=== PATIENT | male | born 1950 | race African-American/Black ===

== ENCOUNTER 2017-01-05 13:05 | Inpatient (IN) | payer MEDICARE, OTHER ==
[~2017-01-05] VITALS: Ht 190.5 cm; Wt 99.9 kg
[~2017-01-05 13:05] MED LIST: ACET325T9 PO; ACET500T68 PO; ALBU8.5H3 INH; ASPI81TA50 PO; ATOR20TA58 PO; BACL10TA PO; BISA10SU55 RC; BUSP10TA PO; CARV25TA2 PO; CHOL10003 PO; DICL100G7 TP; DIVA125C PO; DIVA500T17 PO; DIVA500T2 PO; DONE10TA34 PO; FURO40TA4 PO; HYDR100T24 PO; LISI40TA PO; LOPE1LIQ7 PO; MAG30ORA2 PO; MAGN2400 PO; MEMA10TA PO; MEMA5TAB PO; MULT0.252 PO; MULT1TAB90 PO; NIFE60TA PO; POTA20LI PO; POTA20TA12 PO; PROP10DR4 OU; PROP15DR OP; PROP15DR OU; SENN-37 PO; SERT100T PO; SERT50TA PO; TRAZ50TA15 PO; WARF5TAB7 PO
--- NOTE | 2017-01-05 13:23 | EKG ---
[address] [address] Test Date: 2017-01-05 Test Time: 13:22:43 Pat Name: HUY TEAGUE Department: Room: Gender: M Post Splitter: : 1950 Requested By: DALIA CONTRERAS Order Number: [id number] Reading MD: Measurements Intervals [place] Rate: 60 P: 0 NC: 190 QRS: 37 QRSD: 100 T: -98 QT: 430 QTc: 434 Interpretive Statements SINUS RHYTHM QRS(T) CONTOUR ABNORMALITY CONSISTENT WITH SEPTAL INFARCT AGE UNDETERMINED ST & T ABNORMALITY, CONSIDER ANTEROLATERAL ISCHEMIA OR LEFT VENTRICULAR STRAIN INFEROLATERAL ISCHEMIA OR LEFT VENTRICULAR STRAIN T ABNORMALITY IN ANTERIOR LEADS ABNORMAL ECG RI6.01 Unconfirmed report Compared to ECG 11/08/2015 18:58:30 Myocardial infarct finding now present Possible ischemia still present Possible ischemia still present T-wave abnormality still present
--- NOTE | 2017-01-05 13:29 | RAD ---
Indication: Previous stroke. Left-sided weakness. Symptoms began about 30 minutes ago, patient slumped over in a chair with mental status change. Technique: Noncontrast CT head was obtained and compared to a CT from November 08, 2015. One or more of the following individualized dose reduction techniques were utilized for this examination: 1. Automated exposure control 2. Adjustment of the mA and/or kV according to patient size 3. Use of iterative reconstruction technique Findings: There is a small old right cerebellar infarct. There is an old right thalamus infarct. There is an old right parietal white matter infarct. There is no CT evidence of an acute infarct. There is brain parenchymal volume loss and probable small vessel ischemic disease. There is no acute intracranial hemorrhage or extra-axial fluid collection. There is no mass effect or midline shift. There are vascular calcifications. Paranasal sinuses and mastoid air cells are clear. This critical report was called to Dr. Vázquez at 1325 hours. Impression: 1. Old right cerebellar, right thalamus, and right parietal white matter infarcts. 2. No evidence of an acute infarct. 3. Brain parenchymal volume loss and probable small vessel ischemic disease.
--- NOTE | 2017-01-05 13:32 | RAD ---
Indication: Mental status change. Technique: Upright portable chest radiograph was obtained. Comparison is from November 08, 2015. Findings: New patchy opacity is noted in the right midlung field. The lungs otherwise are clear. The heart is not enlarged and there is no heart failure. There are degenerative changes in the shoulders. Impression: Minimal new patchy opacity in the right midlung field, may represent developing pneumonia.
[2017-01-05 13:56] LABS: BASO % 1 % (0-3); EOS # 0.2 x10^3/uL (0.0-0.7); EOS % 3 % (0-3); HEMATOCRIT 37.6 % (39.0-53.0); HEMOGLOBIN 12.3 g/dL (13.0-17.5); LYMPH # 1.4 x10^3/uL (1.0-4.8); LYMPH % 22 % (24-48); MEAN CORPUSCULAR HEMOGLOBIN 30 pg (25-35); MEAN CORPUSCULAR HGB CONC 33 g/dL (31-37); MEAN CORPUSCULAR VOLUME 93 fL (79-100); MONO # 0.8 x10^3/uL (0.0-1.1); MONO % 13 % (0-9); NEUT # 4.1 x10^3uL (1.8-7.7); NEUT % 62 % (31-73); PLATELET COUNT 114 x10^3/uL (140-400); RED BLOOD COUNT 4.07 x10^6/uL (4.30-5.70); RED CELL DISTRIBUTION WIDTH 13.6 % (11.5-14.5); WHITE BLOOD COUNT 6.5 x10^3/uL (4.0-11.0)
--- NOTE | 2017-01-05 14:26 | PHYS DOC ---
General Chief Complaint: ALTERED MENTAL STATUS Stated Complaint: ALTERED MENTAL STATUS Time Seen by MD: 13:07 Source: family, EMS, RN notes reviewed Problems: History of Present Illness Initial Comments 66-year-old male patient with history of previous hemorrhagic CVA with left- sided weakness [facility] was seen at his usual contribution at lunchtime and around 1230 today was confused and unable to talk like his usual. Patient is not able to give history and has a slurred speech but according to his family usually he is able to talk and communicate well. Allergies: Coded Allergies: No Known Drug Allergies (Unverified , 11/08/15) Past Medical History Medical History: CVA/TIA/stroke, deep vein thrombosis, diabetes, heart disease , hypertension Review of Systems Constitutional: other (unable to obtain because of ALOC and slurred speech) Physical Exam General Appearance: mild distress, other (keeps his eyes close,follows the comand) Eyes: bilateral eye EOMI, bilateral eye PERRL, bilateral eye normal inspection Neck: non-tender, full range of motion Respiratory: chest non-tender, lungs clear, normal breath sounds, no respiratory distress Cardiovascular: normal peripheral pulses, regular rate, rhythm, no edema Gastrointestinal: normal bowel sounds, non tender Extremities: other (left upper and lower extremity weakness like his previous condition) Neurologic/Psychiatric: other (arousable, slurred speech, left side weakness) Orders, Labs, Meds Evaluation of patient in ER showed 66-year-old male patient with history of hemorrhagic CVA presented to ER with acute slurred speech and confusion at 1230. CT of head did not show acute hemorrhagic findings. Because of previous intracranial bleeding patient was not a candidate for TPA. Dr Davis on-call neurologist was consulted at 1405who was agreed with plan of care. Dr. Lamin Pennington hospitalist was informed about the patient at 1408 accepted the admission. Patient had rectal Aspirin. Critical Care Note Total Time (mins): 60 DALIA CONTRERAS MD Jan 05, 2017 14:26
[2017-01-05 14:30] LABS: ALBUMIN 3.1 g/dL (3.4-5.0); ALBUMIN/GLOBULIN RATIO 0.9 (1.0-1.7); ALK PHOS 44 U/L (46-116); ALT (SGPT) 14 U/L (16-63); ANION GAP 10 (6-14); AST (SGOT) 21 U/L (15-37); BLOOD UREA NITROGEN 30 mg/dL (8-26); BUN/CREATININE RATIO 14 (6-20); CALCIUM 8.8 mg/dL (8.5-10.1); CARBON DIOXIDE 28 mmol/L (21-32); CHLORIDE 106 mmol/L (98-107); CREATINE KINASE 115 U/L (39-308); CREATININE 2.1 mg/dL (0.7-1.3); GFR 38.3; GLUCOSE 137 mg/dL (70-99); POTASSIUM 4.1 mmol/L (3.5-5.1); SODIUM 144 mmol/L (136-145); TOTAL BILIRUBIN 0.3 mg/dL (0.2-1.0); TOTAL PROTEIN 6.7 g/dL (6.4-8.2)
[2017-01-05 14:31] LABS: VAL ACID 78 mcg/mL (50-100)
[2017-01-05] MEDS ORDERED: ASPIRIN 300 MG SUPP.RECT PR ONE (14:50)
[2017-01-05] MEDS ORDERED: SERT100T8 PO (15:39)
[2017-01-05] MEDS ORDERED: SODI30SP NS ×2 (15:57)
[2017-01-05 16:11] VITALS: BP 136/82
[2017-01-05 16:17] VITALS: BP 136/82
[2017-01-05] MEDS ORDERED: ALBUTEROL SULFATE 8GM INHALER. INH PRN (17:45)
[2017-01-05] MEDS ORDERED: SODIUM CHLORIDE 0.65% NASAL SPRAY 45ML BOTTLE. NS PRN (17:45)
[2017-01-05] MEDS ORDERED: MAG HYDROX/AL HYDROX/SIMETH 30 ML ORAL.SUSP PO PRN (17:45)
[2017-01-05] MEDS ORDERED: ACETAMINOPHEN 500 MG TABLET PO PRN (17:45)
[2017-01-05] MEDS ORDERED: BISACODYL 10 MG SUPP.RECT RC PRN (17:45)
[2017-01-05] MEDS ORDERED: DICLOFENAC SODIUM 1% TOPICAL GEL 100GM TUBE. TP PRN (17:45)
[2017-01-05] MEDS ORDERED: PEG OU PRN (17:45)
[2017-01-05] MEDS ORDERED: PROPYLENE GLYCOL OU PRN (17:45)
[2017-01-05] MEDS: CARVEDILOL 25 MG TABLET PO SCH (17:52)
[2017-01-05] MEDS ORDERED: MAGNESIUM HYDROXIDE 2,400 MG/30 ML ORAL.SUSP. PO PRN (18:00)
[2017-01-05] MEDS ORDERED: LOPERAMIDE 2 MG CAPSULE PO PRN (18:00)
[2017-01-05] MEDS: IV NORMAL SALINE 1,000ML 1,000 ML IV SCH (18:07)
[2017-01-05] MEDS ORDERED: ALBUTEROL SULFATE 2.5 MG/3 ML NEBU. NEB PRN (18:15)
--- NOTE | 2017-01-05 18:19 | HP ---
ADMIT DATE: 01/05/2017 HISTORY OF PRESENT ILLNESS: This is a 66-year-old -[place] male patient, a resident at [facility] in [place], who apparently was brought in with altered mental status. He apparently went slumped in his wheelchair. He was also hypotensive at that time. I do not have a lot of more information. The patient did not demonstrate any tonic-clonic seizures nor there any bowel or bladder incontinence. He was brought to the Emergency Room for further evaluation and treatment. He was extensively investigated and has had a CT scan of the head without contrast, which showed that he has old right cerebellar, right thalamus and right parietal white matter infarct; no evidence of an acute infarct. He has brain parenchymal volume loss and probably small vessel ischemic disease. He has had also CBC and CMP. These seem to be acceptable except that he has a slightly elevated troponin as well as serum creatinine was high at 2.1. He is already on Coumadin and his INR is within therapeutic range, so unlikely. He has had an EKG done. His EKG showed that he was in sinus rhythm, in fact in sinus bradycardia with heart rate of 60. He has poor progression of R-wave in V1, V2 and indicating probably old anteroseptal infarct. He has also T-wave inversion in lead 1, aVL, V4, V5, V6 indicating anterolateral and inferior ischemia. His first set of cardiac enzymes showed that his troponin was slightly elevated at 0.066. The patient was admitted for further evaluation. He probably either had a syncopal episode versus seizure disorder. The patient himself is complaining of pain in his neck. Denied any chest pain or shortness of breath. PAST MEDICAL HISTORY: Significant for hypertension, hyperlipidemia, congestive heart failure, right-sided CVA with left side hemiplegia, muscle weakness and anxiety. PAST SURGICAL HISTORY: Unremarkable. FAMILY HISTORY: Unremarkable. SOCIAL HISTORY: He is a resident at [facility]. He is single. He has 3 sons, the youngest is 14, currently lives in [place]. He is an ex-smoker and an ex-alcohol drinker, quit 2 years ago. ALLERGIES: He has no known drug allergies. MEDICATIONS: He is currently on the following medications: He is on Tylenol 650 mg every 4 hours, albuterol sulfate 1 puff every 6 hours, aspirin 81 mg once a day, atorvastatin calcium 20 mg p.o. at bedtime, baclofen 10 mg at bedtime, baclofen 5 mg as needed daily, bisacodyl 10 mg suppository as needed for constipation, buspirone 10 mg p.o. q.i.d., carvedilol 25 mg p.o. b.i.d., cholecalciferol for vitamin D 2000 units p.o. daily, diclofenac sodium for Voltaren gel 1 gram applied topically twice a day, divalproex 750 mg p.o. b.i.d., Aricept 10 mg at bedtime, furosemide 40 mg daily, hydralazine 100 mg 3 times a day, lisinopril 40 mg once a day, loperamide for Imodium 2 mg as needed every 8 hours for diarrhea, Mylanta 15 mL every 6 hours, magnesium hydroxide for milk of magnesia 30 mL p.o. daily p.r.n. for constipation, Namenda 10 mg twice a day, multivitamin with mineral 1 tablet once a day, nifedipine 60 mg extended release 1 once a day, potassium chloride 20 mEq 3 times per week, Systane 2 drops to both eyes 4 times a day, senna docusate 1 tablet twice a day, sertraline 125 mg daily, sodium chloride for saline nasal spray one spray to each nostril 3 times a day, trazodone 50 mg at bedtime and warfarin 3.5 mg daily. REVIEW OF SYSTEMS: As per history of present illness. PHYSICAL EXAMINATION GENERAL: When I examined him, he looked well and was clearly in no apparent respiratory distress. He is awake, alert. VITAL SIGNS: Apparently, his blood pressure was low when he was at the senior care with a systolic pressure of only 70. By the time he arrived here, his blood pressure was around 100/62 and subsequently has improved, his respiratory rate was 18, oxygen saturation was 96% and temperature was 97. HEAD, EYES, EARS, NOSE, AND THROAT: Showed normocephalic, atraumatic. NECK: Supple. HEART: Showed normal first and second heart sounds with no gallop, rub or murmur. CHEST: Clear to auscultation. No crepitation or rhonchi. ABDOMEN: Distended, soft, nontender. No guarding or rigidity. No organomegaly. All hernial orifices are intact. Bowel sounds are normal. NEUROLOGIC: He was awake, alert, responding appropriately. All cranial nerves are intact. He has left-sided hemiplegia. He is mostly bedbound and chair bound. LABORATORY DATA: This morning showed a serum sodium 144, potassium 4.1, chloride 106, bicarbonate 28, anion gap of 10, BUN 30, creatinine 2.1, estimated GFR was 38 mL per minute, his glucose 137, calcium was 8.8, magnesium 2. Total bilirubin, AST, ALT, and alkaline phosphatase were all normal. His CK was 115, first set of troponin was 0.066. His beta natriuretic peptide was 131. Total protein was 6.7, albumin 3.1. His prothrombin time was , INR of 2.6. White cell count was 6500, hemoglobin 12.3, hematocrit 37, MCV 93, and platelet count 214,000. His creatinine was only 1.4 when he was here in 11/08/2015, a year ago. PLAN: My plan is to given the slightly elevated troponin and findings on his EKG that sounds the possibility of syncopal episode versus seizure or arrhythmias is likely, so I will consult the cardiology team as well as the neurologist. We will do 2 more sets of cardiac enzymes, check his fasting lipid profile. I will hold his lisinopril as well as his diuretics and rehydrate him gently and decide on further management accordingly. INDER MIRELES MD DR: ANTOINETTE/rose JOB#: [id number] / [id number]
--- NOTE | 2017-01-05 19:14 | ACF ---
Admission Criteria Forms MENTAL STATUS CHANGE Clinical Indications for Inpatient Care (Place 'X' for any and all applicable criteria): Ongoing inpatient care may be needed for ANY ONE of the following(1)(2)(3)(5)(6) : [X]I. Suspected serious etiology (eg, medical disorder, CURATORIAL SPECIALIST event) of mental status change [ ]II. Danger to self or others not manageable at lower level of care [ ]III. Grave disability (eg, inability to perform self care necessary at lower level of care) [ ]IV. Agitation or inappropriate behavior interfering with care for primary condition (eg, attempting to discontinue lines or drains prematurely, unable to cooperate with respiratory care) [ ]V. Delirium [A] [D][E] as described by ANY ONE of the following(26): [ ]a) Delirium due to alcohol or sedative [F] withdrawal [ ]b) Delirium of uncertain etiology that has not responded to appropriate empiric treatment [ ]c) Delirium that prevents performance of a life-sustaining function (eg, feeding or hydrating oneself) [ ]. General contraindications and/or Inappropriate clinical situations for Observational Care in patients with Mental Status Change, when ANY ONE of the following is required: [ ]a) Prediction of prolongation of LOS based on ANY ONE of the following may be considered as a contraindication for observational care 2, 3, 4, 5, 6, 7, 8, 9, 10, 11 [ ]i) Age > 65 yrs. [ ]ii) Patient arriving by ambulance [ ]iii) Patient with high acuity [ ]iv) Patient requiring vital sign monitoring [ ]v) Patient on IV medication [ ]b) Systolic blood pressures 180mmHg 3,12 [ ]c) Patient with altered mental status including delirium and other alteration of consciousness, (3) [ ]d) Patient whose discharge disposition will be to a group home home or rehabilitation home should not be managed in Emergency Department Observation Unit. CMS rule requires 3 days hospital stay before such placement.3,13 [ ]e) Patient with failure to thrive due to broad array of etiologies 3,16,17 [ ]f) Inability to ambulate 3,14 Extended stay beyond goal length of stay for the primary condition may be needed until ALL of the following are present(3)(5): [ ]a) Underlying medical etiology of mental status change is absent, or has been established and adequately treated [ ]b) Danger to self or others is absent or manageable at lower level of care. [ ]c) Behavior crisis management, including physical or chemical restraints, is not required or available at lower level of car [ ]d) Substance or alcohol withdrawal is absent or manageable at lower level of care. [ ]e) Behavioral symptoms (eg, agitation, somnolence, inappropriate behavior) are absent, or are manageable at lower level of care. The original [facility] content created by [facility] has been revised. The portions of the content which have been revised are identified through the use of italic text or in bold, and [facility] has neither reviewed nor approved the modified material. All other unmodified content is copyright [facility]. Please see references footnoted in the original [facility] edition 2016 Admission Criteria Met?: Yes ARISTEO ELAM Jan 05, 2017 19:14
[2017-01-05 19:22] VITALS: BP 134/75
[2017-01-05] MEDS: SODIUM CHLORIDE 0.65% NASAL SPRAY 45ML BOTTLE. NS SCH (21:00)
[2017-01-05] MEDS: DIVALPROEX 125 MG CAP.SPRINK PO SCH (22:16)
[2017-01-05] MEDS: SENNOSIDES/DOCUSATE 8.6/50MG TABLET. PO SCH (22:17)
[2017-01-05] MEDS: busPIRone 10 MG TABLET. PO SCH (22:17)
[2017-01-05] MEDS: ATORVASTATIN CALCIUM 20 MG TABLET PO SCH (22:18)
[2017-01-05] MEDS: MEMANTINE 10 MG TABLET. PO SCH (22:18)
[2017-01-05] MEDS: BACLOFEN 10 MG TABLET PO SCH (22:18)
[2017-01-05] MEDS: DONEPEZIL HCL 10 MG TABLET PO SCH (22:19)
[2017-01-05 23:07] VITALS: BP 145/88
[2017-01-05 23:21] LABS: BACTERIA,URINE 0 /HPF (0-FEW); BILIRUBIN,URINE NEG (NEG); CLARITY,URINE CLEAR; COLOR,URINE YELLOW; GLUCOSE,URINE NEG (NEG); NITRITE,URINE NEG (NEG); RBC,URINE 0 /HPF (0-2); SQUAMOUS EPITHELIAL CELL,UR FEW /LPF; UROBILINOGEN,URINE 0.2 mg/dL (0.2 mg/dL); WBC,URINE OCC /HPF (0-4)
[2017-01-06] MEDS: IV NORMAL SALINE 1,000ML 1,000 ML IV SCH (04:44)
[2017-01-06 05:03] VITALS: BP 101/64
[2017-01-06 06:23] LABS: BASO % 1 % (0-3); EOS # 0.2 x10^3/uL (0.0-0.7); EOS % 3 % (0-3); HEMATOCRIT 31.6 % (39.0-53.0); HEMOGLOBIN 10.5 g/dL (13.0-17.5); LYMPH # 2.2 x10^3/uL (1.0-4.8); LYMPH % 42 % (24-48); MEAN CORPUSCULAR HEMOGLOBIN 31 pg (25-35); MEAN CORPUSCULAR HGB CONC 33 g/dL (31-37); MEAN CORPUSCULAR VOLUME 93 fL (79-100); MONO # 0.7 x10^3/uL (0.0-1.1); MONO % 14 % (0-9); NEUT # 2.1 x10^3uL (1.8-7.7); NEUT % 40 % (31-73); PLATELET COUNT 103 x10^3/uL (140-400); RED BLOOD COUNT 3.41 x10^6/uL (4.30-5.70); RED CELL DISTRIBUTION WIDTH 13.4 % (11.5-14.5); WHITE BLOOD COUNT 5.2 x10^3/uL (4.0-11.0)
[2017-01-06 06:33] LABS: ALBUMIN 2.7 g/dL (3.4-5.0); ALBUMIN/GLOBULIN RATIO 0.8 (1.0-1.7); CALCIUM 8.6 mg/dL (8.5-10.1); CREATININE 1.8 mg/dL (0.7-1.3); GFR 45.8; POTASSIUM 3.7 mmol/L (3.5-5.1); TOTAL BILIRUBIN 0.4 mg/dL (0.2-1.0)
[2017-01-06] MEDS: CARVEDILOL 25 MG TABLET PO SCH ×2 (08:00→16:53)
[2017-01-06] MEDS: CHOLECALCIFEROL (VITAMIN D3) 1,000 UNIT TABLET PO SCH (09:32)
[2017-01-06] MEDS: SERTRALINE 25 MG TABLET. PO SCH (09:32)
[2017-01-06] MEDS: busPIRone 10 MG TABLET. PO SCH ×4 (09:32→20:49)
[2017-01-06] MEDS: ASPIRIN ENTERIC COATED 81 MG TABLET.DR. PO SCH (09:32)
[2017-01-06] MEDS: SENNOSIDES/DOCUSATE 8.6/50MG TABLET. PO SCH ×2 (09:32→20:49)
[2017-01-06] MEDS: MEMANTINE 10 MG TABLET. PO SCH ×2 (09:32→20:49)
[2017-01-06] MEDS: MULTIVITAMIN with MINERAL TABLET. PO SCH (09:32)
[2017-01-06] MEDS: DIVALPROEX 125 MG CAP.SPRINK PO SCH ×2 (09:33→20:49)
[2017-01-06] MEDS: BACLOFEN 10 MG TABLET PO SCH ×2 (09:33→21:01)
[2017-01-06] MEDS: SERTRALINE 100 MG TABLET. PO SCH (09:33)
[2017-01-06] MEDS: SODIUM CHLORIDE 0.65% NASAL SPRAY 45ML BOTTLE. NS SCH ×3 (09:36→21:01)
--- NOTE | 2017-01-06 09:45 | PN ---
DATE: SUBJECTIVE: The patient denies any new medical neurological complaints. He eats and drink water well. He has not had any recurrent spells or slurred speech. OBJECTIVE: GENERAL: Moderately obese, white -Polish male, in no acute distress. VITAL SIGNS: Blood pressure 101/64, respiratory rate 20, pulse is 64, and oxygen saturation 95% on room air. HEENT: Normocephalic, atraumatic, otherwise unremarkable. NECK: Supple. Negative for carotid bruit, lymphadenopathy or thyromegaly. LUNGS: Clear to A and P. CARDIOVASCULAR: Regular rate and rhythm, normal S1, S2. There is no S3, S4 or murmur. ABDOMEN: Soft. Bowel sounds positive. EXTREMITIES: Negative for cyanosis, clubbing or pitting edema. NEUROLOGICAL EXAM: Mental Status: The patient is alert and oriented x 3. Speech is fluent. There is no language dysfunction. Cranial nerves are intact. Motor examination reveal left hemiplegia secondary to stroke, otherwise unchanged. Sensory examination revealed diminished pinprick and light touch senses over the left upper and lower extremities compared to those on the right side. Deep tendon reflexes were symmetric and hypoactive without pathology responses. Gait not tested. LABORATORY DATA: CBC revealed white blood cells of 5.2 thousand, hemoglobin 10.5, hematocrit 31.6, platelet count . Chemistry revealed sodium of 143, potassium 3.7, chloride 108, CO2 27, BUN 29, creatinine 1.8, glucose is 87, calcium 8.6. Coagulation, INR is 2.9 and PT is 30.1. IMPRESSION: 1. Sudden onset of weakness of the lower extremities with a fall, rule out of syncope versus seizure versus transient ischemic attack. 2. Renal insufficiency/dehydration. 3. Multiple medical problems includes hyperlipidemia, status post left hemiplegia secondary to old stroke. 4. Hypertension with normal current blood pressure. 5. Depressions and anxiety. RECOMMENDATIONS: 1. Await for Cardiology consultation. 2. Await for EEG. 3. Continue with care for hydration and . 4. Continue with current management initiated by Dr. Pennington. M Silvana MONTOYA MD DR: DAWNA/rose JOB#: [id number] / [id number]
--- NOTE | 2017-01-06 10:09 | CONS ---
DATE OF CONSULTATION: 01/05/2017 NEUROLOGY CONSULTATION REFERRING PHYSICIAN: INDER MIRELES MD REASON FOR CONSULTATION: Weakness of the lower extremity, rule out syncope versus seizure or TIA. HISTORY OF PRESENT ILLNESS: This is a 66-year-old right-handed male who was admitted through Emergency Room after he presented with chief complaints of sudden onset of a fall resulted from a sudden onset of weakness of the lower extremities. According to the patient, he is a resident at [facility], was sitting in a chair, all of a sudden he slumped in his chair and fell to the ground and fell to the floor. He denies any prior symptoms, has chest pain, shortness of breath, palpitations, dysarthria or dysphagia. The patient did not recall being on the floor or being in the ambulance, but he did hear people talk to him in the Emergency Room. Apparently, there has been no report about any convulsions, bowel or bladder dysfunctions. It was reported that the patient was hypotensive at the time of the event. Currently, the patient denies any headaches, visual disturbances, nausea, vomiting, or chest pain. On arrival to Emergency Room, the patient was found to have a slurred speech and confusion. DIAGNOSTIC DATA: Initial nonenhanced head CT scan revealed evidence of an old right cerebellar, thalamic, parietal old infarcts along with generalized cerebral atrophy, but did not show any acute intracranial process. VITAL SIGNS: Stable with blood pressure of 106/62. PAST MEDICAL HISTORY: Significant for hemorrhagic infarcts resultant in left hemiplegia, more prominent on the left upper extremity, and associated with contractions at the elbow. Hypertension, hyperlipidemia, congestive heart failure, anxiety, and depressions. FAMILY HISTORY: Noncontributory. SOCIAL HISTORY: The patient is a custodial resident. He is single. He has 3 sons. He denies smoking, alcohol drinking, or illicit drug use. HOME MEDICATIONS: Aspirin 81 mg daily, baclofen 10 mg daily, buspirone 10 mg q.i.d. for anxiety, carvedilol 25 mg b.i.d., vitamin D3 2000 units p.o. daily, diclofenac 100 mg gel applied to the painful area p.r.n., Namenda 10 mg b.i.d., sertraline, Zoloft 100 mg daily, Aricept 10 mg at bedtime, Depakote Sprinkle 125 mg capsule, the patient takes 750 mg b.i.d., lisinopril 40 mg daily, hydralazine HCT 100 mg t.i.d., multivitamins, nifedipine XL 60 mg daily, trazodone 50 mg half tablet at bedtime, and warfarin 5 mg daily. ALLERGIES: No known drug allergies. REVIEW OF SYSTEMS: A 10-point review of system was performed and consistent with left hemiplegia secondary to previous stroke. Otherwise, as mentioned above in the history of present illness. PHYSICAL EXAMINATION: GENERAL: Well developed, well nourished male, not in acute distress. He weighs 224 pounds. VITAL SIGNS: Blood pressure 136/62, respiratory rate 18, pulse is 65 and regular, temperature 98.7 and oxygen saturation 93% on room air. HEENT: Normocephalic, atraumatic, otherwise unremarkable. NECK: Supple. Negative for carotid bruit, lymphadenopathy or thyromegaly. LUNGS: Clear to A and P. CARDIOVASCULAR: Regular rate and rhythm, normal S1, S2. There is no S3, S4 or murmur. ABDOMEN: Soft. Bowel sounds positive. EXTREMITIES: Negative for cyanosis, clubbing, or pitting edema. NEUROLOGIC MENTAL STATUS: The patient is alert and oriented x 3. The speech is fluent. There is no language dysfunction. The patient recalls 2/3 immediately and after 1 and 3 minutes. Judgment and abstract thinkings are normal. The patient denies hallucination or delusion. The pupils are reactive to light and accommodation. CRANIAL NERVES: Visual rashid are full. The pupils are reactive to light and accommodation. The extraocular movements are intact. There is no nystagmus. There is no facial motor or sensory deficit. Hearing is intact bilaterally. The palate is elevated symmetrically. Sternocleidomastoid muscles are powerful bilaterally. The patient shrugs his shoulders symmetrically. Protrudes his tongue in the midline without fasciculation or atrophy. MOTOR EXAMINATION: Revealed no focal muscle bulk was seen. The tone is normal. The patient had left hemiplegia with contracture at the elbow. NEUROLOGIC: Intermittent tremor of the hands, more prominent on the right side was noted. Sensory examination revealed diminished pinprick and light touch senses over the left upper and lower extremities compared to those on the right side. Deep tendon reflexes were symmetric and hypoactive without pathology responses. Gait not tested. LABORATORY DATA: CBC revealed white blood cells of 6.5 thousand, hemoglobin 12.3, hematocrit 37.6, and platelet count 114,000. Chemistry reviewed creatinine kinase of 115. CK-MB is 1.3, troponin level is 0.054. NPB is high at 931. Vitamin B132, folate are normal. Thyroid profile is normal. Urinalysis is negative for urinary tract infections. Valproic acid level is normal at 78. CT scan as described above in the history of present illness. Chest x-ray revealed new patchy opacity in the right mid lung field may represent developing pneumonia. IMPRESSION: 1. Sudden onset of falls and mental status changes, rule out syncope, nonconvulsive seizure, or transient ischemic attack, rule out cardiac arrhythmia. 2. Multiple medical problems include left hemiplegia secondary to old hemorrhagic stroke, hypertension, hyperlipidemia, anxiety, depressions. RECOMMENDATIONS: 1. Continue with current management initiated by Dr. Mireles. 2. EEG. 3. Cardiology consult. 4. Carotid Doppler study, echocardiogram, if it has not been done recently. M Silvana MONTOYA MD DR: DAWNA/rose JOB#: [id number] / [id number]
--- NOTE | 2017-01-06 10:40 | PDOC2 ---
SOURAVSUSIE J FLEXIBLE SHAFT WINDER 01/06/17 1040: CONSULT Date of Admission DATE: 01/06/17 TIME: 10:31 Reason for Consult: syncope and elevated trop Problem List Problems Medical Problems: (1) Acute ischemic stroke Status: Acute History of Present Illness Mr Hawk is a 66 year old male [place] resident who presented to the ED yesterday after a fall from his chair with possible syncopal episode and new onset slurring of speech. He was apparently sitting when he slumped and slid out of his chair. He was reportedly hypotensive at the time. He reportedly does not have memory of the incident but it was reported that he had no loss of continence or seizure like activity. He was noted to have new onset of slurred speech however. CT revealed old CVA. He was also noted to have a mildly elevated troponin so consult was called. This morning he gives several accounts of the incident. He reports initially that he was standing and his legs just went out from under him. He denied any preceding symptoms and reports that this occurred one other time several weeks ago. He also reports that he was sitting in the wheel chair and reached for something which caused him to fall. He then reported getting out of bed even though he is not supposed to and causing a fall. He was unaware that he lost consciousness. He denies any chest discomfort, palpitations, lightheadedness. He denies congestive symptoms. 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 Past Surgical History Unremarkable. Family History non contributory Social History He is a resident at [facility]. He is a prior smoker, and has prior history of ETOH. No illicit drugs. Current Medications Current Medications Aspirin (Aspirin) 300 mg 1X ONCE IN Last administered on 01/05/17t 14:54; Start 01/05/17 at 14:50; Stop 01/05/17 at 14:51; Status DC Acetaminophen (Tylenol) 500 mg PRN Q4HRS PRN PO PAIN / TEMP; Start 01/05/17 at 17:45 Albuterol Sulfate (Ventolin Hfa) 1 puff PRN Q6HRS PRN INH SHORTNESS OF BREATH; Start 01/05/17 at 17:45; Stop 01/05/17 at 18:04; Status DC Aspirin (Aspirin Enteric Coated) 81 mg DAILY PO Last administered on 01/06/17 09:32; Start 01/06/17 at 09:00 Atorvastatin Calcium (Lipitor) 20 mg QHS PO Last administered on 01/05/17 22: 18; Start 01/05/17 at 21:00 Baclofen (Lioresal) 5 mg DAILY PO Last administered on 01/06/17 09:33; Start 01/06/17 at 09:00 Baclofen (Lioresal) 10 mg QHS PO Last administered on 01/05/17 22:18; Start at 21:00 Bisacodyl (Dulcolax Supp) 10 mg PRN DAILY PRN RC CONSTIPATION; Start 01/05/17 at 17:45 Buspirone HCl (Buspar) 10 mg QID PO Last administered on 01/06/17 09:32; Start 01/05/17 at 21:00 Carvedilol (Coreg) 25 mg BIDWMEALS PO ; Start 01/05/17 at 18:00 Vitamin D (Vitamin D3) 2,000 unit DAILY PO Last administered on 01/06/17 09:32 ; Start 01/06/17 at 09:00 Diclofenac Sodium (Voltaren) 1 evan PRN Q12HR PRN TP PAIN; Start 01/05/17 at 17: 45 Divalproex Sodium (Depakote Sprinkles) 750 mg BID PO Last administered on 09:33; Start 01/05/17 at 21:00 Donepezil HCl (Aricept) 10 mg QHS PO Last administered on 01/05/17 22:19; Start 01/05/17 at 21:00 Al Hydroxide/Mg Hydroxide (Mylanta Plus Xs) 15 ml PRN Q6HRS PRN PO DYSPEPSIA; Start 01/05/17 at 17:45 Memantine (Namenda) 10 mg BID PO Last administered on 01/06/17 09:32; Start at 21:00 Multivitamins/ Calcium (Thera-M Plus) 1 tab DAILY PO Last administered on 09:32; Start 01/06/17 at 09:00 Potassium Chloride (KCl Oral Soln) 20 meq 3X/WEEK PO ; Start 01/07/17 at 09:00 Polyethyl Glycol/ Propylene Glycol (Systane 0.3-0.4% Oph) 2 drop PRN QID PRN OU DRY EYE; Start 01/05/17 at 17:45 Senna/Docusate Sodium (Senna Plus) 1 tab BID PO Last administered on 01/06/17 09:32; Start 01/05/17 at 21:00 Sertraline HCl (Zoloft) 100 mg DAILY PO Last administered on 01/06/17 09:33; Start 01/06/17 at 09:00 Sodium Chloride (Saline Mist Nasal) 1 evan PRN Q4HRS PRN NS CONGESTION; Start at 17:45 Sodium Chloride (Saline Mist Nasal) 1 evan TID NS Last administered on 09:36; Start 01/05/17 at 21:00 Warfarin Sodium (Coumadin) 3.5 mg DAILY16 PO ; Start 01/06/17 at 16:00; Stop at 16:00; Status DC Loperamide HCl (Imodium) 2 mg PRN Q2HR PRN PO DIARRHEA; Start 01/05/17 at 18:00 Magnesium Hydroxide 2400 mg 2,400 mg PRN QHS PRN PO CONSTIPATION; Start at 18:00 Sodium Chloride (Iv Sodium Chloride 0.9% 1,000ml) 1,000 ml @ 75 mls/hr [id number] IV Last administered on 01/06/17 04:44; Start 01/05/17 at 17:45 Sertraline HCl (Zoloft) 25 mg DAILY PO Last administered on 01/06/17 09:32; Start 01/06/17 at 09:00 Albuterol Sulfate (Ventolin) 2.5 mg PRN Q6HRS PRN NEB SHORTNESS OF BREATH; Start 01/05/17 at 18:15 Warfarin Sodium (Coumadin) 1 mg DAILY16 PO ; Start 01/06/17 at 16:00 Warfarin Sodium (Coumadin) 2.5 mg DAILY16 PO ; Start 01/06/17 at 16:00 Warfarin Sodium (Coumadin Per Physician) 1 each PRN DAILY PRN MC SEE COMMENTS; Start 01/05/17 at 18:15 Active Scripts Active Reported Saline Nasal [place] (Sodium Chloride) 30 Ml [place] 30 Ml NS PRN PRN Saline Nasal [place] (Sodium Chloride) 30 Ml [place] 30 Ml NS TID Sertraline Hcl 100 Mg Tablet 125 Mg PO DAILY Mag-Al Plus Xs Suspension (Mag Hydrox/Al Hydrox/Simeth) 30 Ml Oral.susp 15 Ml PO PRN Q6HRS PRN Vitamin D3 (Cholecalciferol (Vitamin D3)) 1,000 Unit Tablet 2,000 Unit PO DAILY Potassium Chloride Oral Liquid (Potassium Chloride) 20 Meq/15 Ml Liquid 20 Meq PO 3X/WEEK Administer on Thursday, Thursday and Thursday Thera-M Tablet (Multivits,Ca,Minerals/Iron/Fa) 1 Each Tablet 1 Tab PO DAILY Namenda (Memantine Hcl) 5 Mg Tablet 10 Mg PO BID Depakote Sprinkle (Divalproex Sodium) 125 Mg Cap.sprink 750 Mg PO BID Warfarin Sodium 5 Mg Tablet 3.5 Mg PO DAILY16 Voltaren (Diclofenac Sodium) 100 Gm Gel..gram. 1 Evan TP PRN Q12HR PRN Trazodone Hcl 50 Mg Tablet 25 Mg PO QHS Systane 0.3-0.4% Eye Drops (Propylene Glycol/Peg 400) 15 Ml Drops 2 Drop OU PRN QID PRN Senokot-S Tablet (Sennosides/Docusate Sodium) 1 Each Tablet 1 Tab PO BID Procardia Xl (Nifedipine) 60 Mg Tab.er.24 60 Mg PO DAILY Hold for SBO less than 100 or Pulse less than 60, Call MD for Pulse less than 50 Milk Of Magnesia (Magnesium Hydroxide) 2,400 Mg/10 Ml Oral.susp 2,400 Mg PO PRN QHS PRN Lisinopril 40 Mg Tablet 40 Mg PO DAILY Imodium A-D (Loperamide Hcl) 1 Mg/7.5 Ml Liquid 2 Mg PO PRN Q2HR PRN Max dose of 16mg in 24 hours Hydralazine Hcl 100 Mg Tablet 100 Mg PO TID Hold for SBP less than 100 Furosemide 40 Mg Tablet 40 Mg PO DAILY Dulcolax (Bisacodyl) 10 Mg Supp.rect 10 Mg RC PRN DAILY PRN Carvedilol 25 Mg Tablet 25 Mg PO BID Buspirone Hcl 10 Mg Tablet 10 Mg PO QID Baclofen 10 Mg Tablet 5 Mg PO DAILY Baclofen 10 Mg Tablet 10 Mg PO QHS Atorvastatin Calcium 20 Mg Tablet 20 Mg PO QHS Aspir-Low (Aspirin) 81 Mg Tablet.dr 81 Mg PO DAILY Aricept (Donepezil Hcl) 10 Mg Tablet 10 Mg PO QHS Proair Hfa Inhaler (Albuterol Sulfate) 8.5 Gm Hfa.aer.ad 1 Puff INH PRN Q6HRS PRN Acetaminophen 500 Mg Tablet 500 Mg PO PRN Q4HRS PRN NTE 3000mg APAP in 24 hours from all sources Allergies: Coded Allergies: No Known Drug Allergies (Unverified , 11/08/15) Review of System as per HPI General: Alert, Oriented X3, Cooperative, No acute distress HEENT: Atraumatic, EOMI, Mucous membr. moist/pink Lungs: Clear to auscultation Heart: Regular rate, Normal S1, Normal S2, Other (no gallops, clicks or rubs) Abdomen: Normal bowel sounds, Soft, No tenderness Extremities: No cyanosis, Normal pulses Neuro: Normal speech, Other (left sided hemiparesis) Psych/Mental Status: Mood NL VITALS Vital Signs Date Time Temp Pulse Resp B/P Pulse Ox O2 Delivery O2 Flow Rate FiO2 01/06/17 05:03 98.5 64 20 101/64 95 Room Air Labs Laboratory Tests Test 01/05/17 13:35 01/05/17 17:20 01/05/17 19:30 01/05/17 23:00 White Blood Count 6.5x10^3/uL (4.0-11.0) Red Blood Count 4.07x10^6/uL (4.30-5.70) Hemoglobin 12.3g/dL (13.0-17.5) Hematocrit 37.6% (39.0-53.0) Mean Corpuscular Volume 93fL (79-100) Mean Corpuscular Hemoglobin 30pg (25-35) Mean Corpuscular Hemoglobin Concent 33g/dL (31-37) Red Cell Distribution Width 13.6% (11.5-14.5) Platelet Count 114x10^3/uL (140-400) Neutrophils (%) (Auto) 62% (31-73) Lymphocytes (%) (Auto) 22% (24-48) Monocytes (%) (Auto) 13% (0-9) Eosinophils (%) (Auto) 3% (0-3) Basophils (%) (Auto) 1% (0-3) Neutrophils # (Auto) 4.1x10^3uL (1.8-7.7) Lymphocytes # (Auto) 1.4x10^3/uL (1.0-4.8) Monocytes # (Auto) 0.8x10^3/uL (0.0-1.1) Eosinophils # (Auto) 0.2x10^3/uL (0.0-0.7) Basophils # (Auto) 0.0x10^3/uL (0.0-0.2) Prothrombin Time 30.1SEC (9.4-11.4) Prothromb Time International Ratio 2.9 (0.9-1.1) Activated Partial Thromboplast Time 36SEC (23-33) Sodium Level 144mmol/L (136-145) Potassium Level 4.1mmol/L (3.5-5.1) Chloride Level 106mmol/L (98-107) Carbon Dioxide Level 28mmol/L (21-32) Anion Gap 10 (6-14) Blood Urea Nitrogen 30mg/dL (8-26) Creatinine 2.1mg/dL (0.7-1.3) Estimated GFR (Cockcroft-Gault) 38.3 BUN/Creatinine Ratio 14 (6-20) Glucose Level 137mg/dL (70-99) Calcium Level 8.8mg/dL (8.5-10.1) Magnesium Level 2.0mg/dL (1.8-2.4) Total Bilirubin 0.3mg/dL (0.2-1.0) Aspartate Amino Transf (AST/SGOT) 21U/L (15-37) Alanine Aminotransferase (ALT/SGPT) 14U/L (16-63) Alkaline Phosphatase 44U/L (46-116) Creatine Kinase 115U/L (39-308) Creatine Kinase MB (Mass) 1.3ng/mL (0.0-3.6) Creatine Kinase MB Relative Index 1.1% (0-4) Troponin I Quantitative 0.066ng/mL (0-0.055) 0.058ng/mL (0-0.055) VM-Dxq-Z-Type Natriuretic Peptide 931pg/mL (0-124) Total Protein 6.7g/dL (6.4-8.2) Albumin 3.1g/dL (3.4-5.0) Albumin/Globulin Ratio 0.9 (1.0-1.7) Valproic Acid (Depakene) Level 78mcg/mL (50-100) Valproic Acid Last Dose Date 01/05/17 Valproic Acid Last Dose Time 0900 Nasal Screen MRSA (PCR) Negative (Negative) Urine Collection Type Unknown Urine Color Yellow Urine Clarity Clear Urine pH 5.5 Urine Specific [employer] 1.010 Urine Protein Neg (NEG-TRACE) Urine Glucose (UA) Negmg/dL (NEG) Urine Ketones (Stick) Tracemg/dL (NEG) Urine Blood Neg (NEG) Urine Nitrite Neg (NEG) Urine Bilirubin Neg (NEG) Urine Urobilinogen Dipstick 0.2mg/dL (0.2 mg/dL) Urine Leukocyte Esterase Neg (NEG) Urine RBC 0/HPF (0-2) Urine WBC Occ/HPF (0-4) Urine Squamous Epithelial Cells Few/LPF Urine Bacteria 0/HPF (0-FEW) Urine Mucus Slight/LPF Test 01/06/17 01:50 01/06/17 06:03 Troponin I Quantitative 0.054ng/mL (0-0.055) White Blood Count 5.2x10^3/uL (4.0-11.0) Red Blood Count 3.41x10^6/uL (4.30-5.70) Hemoglobin 10.5g/dL (13.0-17.5) Hematocrit 31.6% (39.0-53.0) Mean Corpuscular Volume 93fL (79-100) Mean Corpuscular Hemoglobin 31pg (25-35) Mean Corpuscular Hemoglobin Concent 33g/dL (31-37) Red Cell Distribution Width 13.4% (11.5-14.5) Platelet Count 103x10^3/uL (140-400) Neutrophils (%) (Auto) 40% (31-73) Lymphocytes (%) (Auto) 42% (24-48) Monocytes (%) (Auto) 14% (0-9) Eosinophils (%) (Auto) 3% (0-3) Basophils (%) (Auto) 1% (0-3) Neutrophils # (Auto) 2.1x10^3uL (1.8-7.7) Lymphocytes # (Auto) 2.2x10^3/uL (1.0-4.8) Monocytes # (Auto) 0.7x10^3/uL (0.0-1.1) Eosinophils # (Auto) 0.2x10^3/uL (0.0-0.7) Basophils # (Auto) 0.0x10^3/uL (0.0-0.2) Sodium Level 143mmol/L (136-145) Potassium Level 3.7mmol/L (3.5-5.1) Chloride Level 108mmol/L (98-107) Carbon Dioxide Level 27mmol/L (21-32) Anion Gap 8 (6-14) Blood Urea Nitrogen 29mg/dL (8-26) Creatinine 1.8mg/dL (0.7-1.3) Estimated GFR (Cockcroft-Gault) 45.8 BUN/Creatinine Ratio 16 (6-20) Glucose Level 87mg/dL (70-99) Calcium Level 8.6mg/dL (8.5-10.1) Magnesium Level 1.8mg/dL (1.8-2.4) Total Bilirubin 0.4mg/dL (0.2-1.0) Aspartate Amino Transf (AST/SGOT) 17U/L (15-37) Alanine Aminotransferase (ALT/SGPT) 11U/L (16-63) Alkaline Phosphatase 37U/L (46-116) Total Protein 6.0g/dL (6.4-8.2) Albumin 2.7g/dL (3.4-5.0) Albumin/Globulin Ratio 0.8 (1.0-1.7) Images CT head Impression: 1. Old right cerebellar, right thalamus, and right parietal white matter infarcts. 2. No evidence of an acute infarct. 3. Brain parenchymal volume loss and probable small vessel ischemic disease. EKG - unavailable Assessment/Plan 1. syncope vs seizure vs TIA 2. elevated troponin 3. bradycardia 4. hypertension/hypotension - blood pressure controlled since admission. 5. hyperlipidemia Check echo and MPI. Bradycardia is mild (50s) not significant to cause syncope. Could consider event monitoring. Neuro is following as well. Problems: JAVIER LIGHT MD 01/06/17 1430: CONSULT Allergies: Coded Allergies: No Known Drug Allergies (Unverified , 11/08/15) Assessment/Plan Pt. seen and examined. Agree with above TECHNOLOGY ADOPTION MANAGER note. 66 y.o male with syncope of unclear etiology No clear cardiac source identified as of yet. Normal cardiac exam. Tele unremarkable thus far Supportive care, await diagnostic evaluation including echo/MPI given limited history from patient. Will follow. Problems: SUSIE BENJAMIN APRN Jan 06, 2017 10:40 JAVIER LIGHT MD Jan 06, 2017 14:30
[2017-01-06] MEDS ORDERED: REGADENOSON 0.4 MG/5 ML DISP.SYRIN. IV ONE (11:00)
[2017-01-06 11:26] VITALS: BP 169/83
[2017-01-06 15:28] VITALS: BP 132/85
[2017-01-06] MEDS ORDERED: WARFARIN 5 MG TABLET. PO SCH (16:00)
[2017-01-06] MEDS: WARFARIN 2.5 MG TABLET. PO SCH (16:53)
[2017-01-06] MEDS: WARFARIN 1 MG TABLET. PO SCH (16:54)
--- NOTE | 2017-01-06 17:22 | RAD ---
Carotid ultrasound, 01/06/2017: History: Possible CVA Duplex evaluation of the carotid arteries in neck was performed including grayscale, color-flow and spectral Doppler analysis. There are moderate scattered plaques in the common carotid arteries and at both carotid bifurcations. The plaques are partially calcified. No significant velocity acceleration is seen at either carotid bifurcation to suggest a hemodynamically significant carotid stenosis. The proximal internal carotid arteries are tortuous. Antegrade flow is present in both vertebral arteries in the neck. IMPRESSION: Moderate atherosclerotic plaquing at both carotid bifurcations with underlying luminal narrowing in the 0-50% diameter range bilaterally. Note: Stenosis calculations for CT, MRA and conventional angiography are based upon determination of the distal ICA diameter in accordance with the NASCET methodology. Stenosis calculations for Doppler studies are derived from validated velocity criteria which are known to correlate with NASCET methodology of determining stenosis.
--- NOTE | 2017-01-06 17:45 | RAD ---
APPROVED REPORT Test Type: Pharmacological Stress Nurse/Tech: RT Ruth (R) (N) Test Indications: positive troponin Cardiac History: none Medications: see ehr Medical History: see ehr Resting ECG: Sinus neda, Nonspecific T abnormalities Resting Heart Rate: 56 bpm Resting Blood Pressure: 191/90mmHg Pretest Chest Pain: None Nurse/Tech Notes Consent: The procedure was explained to the patient in lay terms. Informed consent was witnessed. Gato eout was entered into [employer] History and Stress Test performed by RT Ruth (R) (N) Pharm. Details Pharmacologic stress testing was performed using 0.4mg per 5ml of regadenoson given intravenously ove r 7-10 seconds. POST EXERCISE Reason for Termination: Infusion complete Max HR: 90 bpm Max Blood Pressure: 128/62mmHg Chest Pain: No. INTERPRETATION Stress EKG Conclusion: no chest pain, minimal ST depression Imaging Protocol IMAGE PROTOCOL: Rest Tc-99m/stress Tc-99m 1 day Rest: Stress: Viability: Radiopharm.Tc99m [id number] Sestamibi Dose11.2mCi 33.5mCi Duration 20min. 15min. Img Date 01/06/2017 01/06/2017 Inj-Img Bhks71reo. 60min. Rest Admin Site:IV - Right HandAdministrator: RT Ruth (Juliet)(N) Stress Admin Site: IV - Right HandAdministrator: RT Ruth (Juliet)(N) STRESS DATA End Diast. Vol.108.0mlAv. Heart Rate73.0bpm LVEDV index BSA2.0mlCardiac Output0.1L/min End Syst. Vol.37.0mlCO Index BSA5.2L/min LVESV index BSA1.0mlMyocardial Qyju945.0g Eject. Ooqxkjrg44.0% Stress Rates Pk. Fill Rate3.04EDV/secLVtime Pk. Fill 181.21msec Pk. Empty Rate3.67ESV/secLVtime Pk. Vziwv440.84msec 10/28 Pk. Fill1.36EDV/sec Stress Scores Regional WT3.00Summed WT25.00 Regional WM0.00Summed WM1.00 The rest and stress images show normal perfusion, normal contraction and thickening. LV Perf. Quant 17 Seg. SSS0.00 17 Seg. SRS0.00 17 Seg. SDS0.00 Stress Defect Extent (% LAD)0.00Rest Defect Extent (% LAD)0.00Rev. Defect Extent (% LAD)0.00 Stress Defect Extent (% LCX) 0.00Rest Defect Extent (% LCX)0.00Rev. Defect Extent (% LCX)0.00 Stress Defect Extent (% RCA)0.00Rest Defect Extent (% RCA)0.00Rev. Defect Extent (% RCA)0.00 Stress Defect Extent (% SANJAY)0.00Rest Defect Extent (% SANJAY)0.00Rev. Defect Extent (% SANJAY)0.00 Other Information Quality:Good Risk Assessment: Low Risk Conclusion 1. No evidence of stress induced EKG changes. 2. Normal myocardial perfusion at stress/rest 3. Normal EF at > 66% 4. Low risk study
[2017-01-06 19:00] VITALS: BP 106/67
[2017-01-06] MEDS: DONEPEZIL HCL 10 MG TABLET PO SCH (20:49)
[2017-01-06] MEDS: ATORVASTATIN CALCIUM 20 MG TABLET PO SCH (20:49)
--- NOTE | 2017-01-06 21:22 | PN ---
DATE: 01/06/2017 SUBJECTIVE: The patient is resting, slightly propped up in bed, in no apparent distress. On questioning him, he denied any complaint, in particular any chest pain, shortness of breath. Denied any further episodes of syncope. Denied any dizziness or lightheadedness. He was evaluated by the neurologist, Dr. Davis and also the Cardiology team, and he apparently has completed his nuclear medicine scan. He was also scheduled for an echocardiogram and an EEG, the results of which are still pending. He had had bedside swallowing evaluation by nursing team and apparently has no problem with swallowing as he had high-fat diet for stress test. OBJECTIVE: GENERAL: When I examined him, he looked somewhat pale, but no jaundice, cyanosis or thyromegaly. No jugular venous distention. No limb edema. VITAL SIGNS: His heart rate was 56, blood pressure 169/83, temperature was 98.4, respiratory rate 20, and oxygen saturation was 98% on room air. HEAD, EYES, EARS, NOSE AND THROAT: Showed normocephalic, atraumatic. NECK: Supple. HEART: Showed normal first and second heart sounds with no gallop, rub or murmur. CHEST: Clear to auscultation. No crepitation or rhonchi. ABDOMEN: Distended, soft, nontender. NEUROLOGIC: He is awake, alert, oriented to self, but at times gets confused. He claims that he can walk, but he cannot. All his cranial nerves are intact. He has left-sided hemiplegia. His intake over the last 24 hours was 1000, output was 275. LABORATORY DATA: His lab work this morning showed a serum sodium 143, potassium 3.7, chloride 108, bicarbonate 27, anion gap of 8, BUN 29, creatinine 1.8. Estimated GFR was 46 mL per minute. His glucose was 87, calcium was 8.6, magnesium was 1.8. Total bilirubin, AST, ALT, alkaline phosphatase were normal. His total protein was 6, albumin was 2.7. His fasting lipid profile showed triglycerides to be 122, total cholesterol was 126, LDL cholesterol was 45, VLDL was 24, and HDL cholesterol was 24. The ratio was 2. His TSH was 1.174. White cell count was 5200, hemoglobin 11, hematocrit 32, MCV 93, and platelet count of 103,000. ASSESSMENT: 1. Syncopal episode versus seizure. 2. Elevated troponin. 3. Bradycardia. 4. Hypertension. 5. Hyperlipidemia. 6. Right cerebellar, right thalamus and right parietal white matter infarct. PLAN: To arrange for an echocardiogram, await the EEG and the result of the MPI to decide on further management, and if there is no evidence of myocardial infarction or ischemia, no evidence of seizure disorder, the Cardiology team will consider event monitor. INDER MIRELES MD DR: ANTOINETTE/rose JOB#: [id number] / [id number]
[2017-01-07 02:30] VITALS: BP 142/83
[2017-01-07 05:07] VITALS: BP 153/79
[2017-01-07 06:40] LABS: BASO % 1 % (0-3); EOS # 0.2 x10^3/uL (0.0-0.7); EOS % 5 % (0-3); HEMATOCRIT 32.2 % (39.0-53.0); HEMOGLOBIN 10.5 g/dL (13.0-17.5); LYMPH # 2.5 x10^3/uL (1.0-4.8); LYMPH % 50 % (24-48); MEAN CORPUSCULAR HEMOGLOBIN 30 pg (25-35); MEAN CORPUSCULAR HGB CONC 33 g/dL (31-37); MEAN CORPUSCULAR VOLUME 93 fL (79-100); MONO # 0.5 x10^3/uL (0.0-1.1); MONO % 11 % (0-9); NEUT # 1.6 x10^3uL (1.8-7.7); NEUT % 33 % (31-73); PLATELET COUNT 110 x10^3/uL (140-400); RED BLOOD COUNT 3.46 x10^6/uL (4.30-5.70); RED CELL DISTRIBUTION WIDTH 13.3 % (11.5-14.5); WHITE BLOOD COUNT 4.9 x10^3/uL (4.0-11.0)
[2017-01-07 06:43] LABS: CALCIUM 8.5 mg/dL (8.5-10.1); CREATININE 1.5 mg/dL (0.7-1.3); GFR 56.5; MAGNESIUM 1.8 mg/dL (1.8-2.4); POTASSIUM 3.6 mmol/L (3.5-5.1)
[2017-01-07] MEDS ORDERED: POTASSIUM CHLORIDE 20 MEQ/15 ML ORAL LIQUID. PO SCH (09:00)
[2017-01-07] MEDS: SENNOSIDES/DOCUSATE 8.6/50MG TABLET. PO SCH ×2 (09:00→20:47)
[2017-01-07] MEDS: SODIUM CHLORIDE 0.65% NASAL SPRAY 45ML BOTTLE. NS SCH ×3 (09:01→20:46)
[2017-01-07] MEDS: SERTRALINE 25 MG TABLET. PO SCH (09:02)
[2017-01-07] MEDS: DIVALPROEX 125 MG CAP.SPRINK PO SCH ×2 (09:02→20:47)
[2017-01-07] MEDS: SERTRALINE 100 MG TABLET. PO SCH (09:02)
[2017-01-07] MEDS: ASPIRIN ENTERIC COATED 81 MG TABLET.DR. PO SCH (09:02)
[2017-01-07] MEDS: CHOLECALCIFEROL (VITAMIN D3) 1,000 UNIT TABLET PO SCH (09:02)
[2017-01-07] MEDS: busPIRone 10 MG TABLET. PO SCH ×4 (09:02→20:47)
[2017-01-07] MEDS: BACLOFEN 10 MG TABLET PO SCH ×2 (09:02→20:47)
[2017-01-07] MEDS: MULTIVITAMIN with MINERAL TABLET. PO SCH (09:02)
[2017-01-07] MEDS: CARVEDILOL 25 MG TABLET PO SCH ×2 (09:03→17:00)
[2017-01-07] MEDS: MEMANTINE 10 MG TABLET. PO SCH ×2 (09:03→20:47)
[2017-01-07 10:55] VITALS: BP_SYST 103; BP_SYST 116; BP_DIAS 65; BP_DIAS 77
[2017-01-07 14:27] VITALS: BP 111/77
[2017-01-07] MEDS: WARFARIN 1 MG TABLET. PO SCH (16:00)
[2017-01-07] MEDS: WARFARIN 2.5 MG TABLET. PO SCH (16:00)
[2017-01-07 17:36] LABS: BGAS PH 7.38 (7.35-7.46)
[2017-01-07 19:31] VITALS: BP 133/82
[2017-01-07] MEDS: DONEPEZIL HCL 10 MG TABLET PO SCH (20:46)
[2017-01-07] MEDS: ATORVASTATIN CALCIUM 20 MG TABLET PO SCH (20:47)
[2017-01-07 22:44] VITALS: BP 124/80
--- NOTE | 2017-01-08 01:07 | PN ---
DATE: 01/07/2017 SUBJECTIVE: The patient is resting, slightly propped up in his recliner. He is very lethargic, opens his eyes to painful stimuli. However, the nursing staff stated that he has himself this morning and he was talking and joking with him. PHYSICAL EXAMINATION: GENERAL: When I examined him this afternoon, he was pale. No jaundice, cyanosis or thyromegaly. No jugular venous distention. No limb edema. VITAL SIGNS: His heart rate was 62, blood pressure was 111/77, temperature was 97.8, respiratory rate was 18 and oxygen saturation was 97%. HEAD, EYES, EARS, NOSE, AND THROAT: Showed normocephalic, atraumatic. NECK: Supple. HEART: Showed normal first and second heart sounds with no gallop, rub, or murmur. CHEST: Clear to auscultation. No crepitation or rhonchi. ABDOMEN: Distended, soft, nontender. No guarding or rigidity. No organomegaly. Hernial orifices intact. Bowel sounds normal. NEUROLOGIC: He is very lethargic, but arousable. He has left-sided hemiplegia. LABORATORY DATA: His lab work this morning showed serum sodium 144, potassium 3.6, chloride 109, bicarbonate 29, anion gap of 6, BUN 25, creatinine 1.5, estimated GFR was 56 mL per minute. His glucose was 82. Calcium was 8.5, magnesium was 1.8. His white cell count was 4900, hemoglobin 10.5, hematocrit 32, MCV 93, and platelet count of 110,000 with normal manual differential. ASSESSMENT: The patient apparently is very lethargic, but arousable. He was admitted with syncopal episode versus seizure. He is scheduled to have EEG done this afternoon. He has elevated troponin, bradycardia, hypertension, hyperlipidemia, right cerebellar, right thalamus and right parietal white matter infarct. PLAN: Plan is to await for the outcome of the echocardiogram as well an EEG. He has had his nuclear stress test that was done yesterday and showed no evidence of stress induced EKG and normal myocardial perfusion stress test at rest and stress. He has normal ejection fraction more than . INDER MIRELES MD DR: ANTOINETTE/rose JOB#: [id number] / [id number]
[2017-01-08 03:26] VITALS: BP 169/96
[2017-01-08 04:04] VITALS: BP 150/88
[2017-01-08 05:07] VITALS: BP 128/85
[2017-01-08] MEDS ORDERED: IV NORMAL SALINE 1,000ML 1,000 ML IV SCH (05:30)
[2017-01-08 06:31] LABS: BASO % 1 % (0-3); EOS # 0.2 x10^3/uL (0.0-0.7); EOS % 4 % (0-3); HEMATOCRIT 30.8 % (39.0-53.0); HEMOGLOBIN 9.9 g/dL (13.0-17.5); LYMPH # 1.8 x10^3/uL (1.0-4.8); LYMPH % 34 % (24-48); MEAN CORPUSCULAR HEMOGLOBIN 30 pg (25-35); MEAN CORPUSCULAR HGB CONC 32 g/dL (31-37); MEAN CORPUSCULAR VOLUME 93 fL (79-100); MONO # 0.7 x10^3/uL (0.0-1.1); MONO % 13 % (0-9); NEUT # 2.6 x10^3uL (1.8-7.7); NEUT % 49 % (31-73); PLATELET COUNT 96 x10^3/uL (140-400); RED BLOOD COUNT 3.29 x10^6/uL (4.30-5.70); RED CELL DISTRIBUTION WIDTH 13.1 % (11.5-14.5); WHITE BLOOD COUNT 5.4 x10^3/uL (4.0-11.0)
[2017-01-08 06:43] LABS: ALBUMIN 2.6 g/dL (3.4-5.0); ALBUMIN/GLOBULIN RATIO 0.8 (1.0-1.7); CALCIUM 8.5 mg/dL (8.5-10.1); CREATININE 1.3 mg/dL (0.7-1.3); GFR 66.6; POTASSIUM 4.1 mmol/L (3.5-5.1); TOTAL BILIRUBIN 0.4 mg/dL (0.2-1.0); TOTAL PROTEIN 5.8 g/dL (6.4-8.2)
[2017-01-08] MEDS: CARVEDILOL 25 MG TABLET PO SCH (07:06)
[2017-01-08] MEDS: busPIRone 10 MG TABLET. PO SCH ×2 (08:26→12:19)
[2017-01-08] MEDS: DIVALPROEX 125 MG CAP.SPRINK PO SCH (08:26)
[2017-01-08] MEDS: SENNOSIDES/DOCUSATE 8.6/50MG TABLET. PO SCH (08:26)
[2017-01-08] MEDS: MULTIVITAMIN with MINERAL TABLET. PO SCH (08:26)
[2017-01-08] MEDS: CHOLECALCIFEROL (VITAMIN D3) 1,000 UNIT TABLET PO SCH (08:26)
[2017-01-08] MEDS: SERTRALINE 25 MG TABLET. PO SCH (08:26)
[2017-01-08] MEDS: SERTRALINE 100 MG TABLET. PO SCH (08:26)
[2017-01-08] MEDS: MEMANTINE 10 MG TABLET. PO SCH (08:26)
[2017-01-08] MEDS: ASPIRIN ENTERIC COATED 81 MG TABLET.DR. PO SCH (08:26)
[2017-01-08] MEDS: BACLOFEN 10 MG TABLET PO SCH (08:27)
[2017-01-08] MEDS: SODIUM CHLORIDE 0.65% NASAL SPRAY 45ML BOTTLE. NS SCH ×2 (08:27→12:26)
[2017-01-08 10:53] VITALS: BP 119/69
--- NOTE | 2017-01-08 14:04 | PN ---
DATE: 01/07/2017 SUBJECTIVE: The patient denies any new medical or neurological complaints. However, he is very lethargic. OBJECTIVE: GENERAL: Well-developed, well-nourished -Lith[place]ian male, not in acute distress. VITAL SIGNS: Blood pressure 111/77, respiratory rate 18, pulse is 62 and regular, temperature 97.8 and oxygen saturation 97% on room air. HEENT: Normocephalic, atraumatic, otherwise unremarkable. NECK: Supple. Negative for carotid bruit, lymphadenopathy or thyromegaly. LUNGS: Clear to A and P. CARDIOVASCULAR: Regular rate and rhythm, normal S1, S2. There is no S3, S4 or murmur. ABDOMEN: Soft. Bowel sounds positive. EXTREMITIES: Negative for cyanosis, clubbing or pitting edema. NEUROLOGIC: Mental Status: The patient is alert and oriented x 3. Speech is fluent. There is no language dysfunction. Motor examination revealed no focal muscle bulk wasting. The tone is normal. The patient had left hemiplegia secondary to old stroke. Sensory examination: Normal pinprick and light touch senses throughout. Deep tendon reflexes were symmetric and hypoactive without pathologic responses. Gait not tested. EEG DESCRIPTION: An 18-channel EEG was performed using the standard international 10-20 electrode placement system. Photic stimulation was used as an activation procedure and hyperventilation was not performed. The patient was not sleep deprived, the patient was not sedated EEG opened with the patient in the drowsy state characterized by slowing of the posterior dominant rhythm of theta activities at frequency of 4-5 cycles per second, intermixed with delta activities at frequency of 3 cycles per second. The background showed diffuse slowing of theta activities at frequency of 4-5 cycles per second seen throughout the recording. The patient achieved stage II sleep characterized by slowing of the posterior dominant rhythm and attenuation of the amplitudes, vertex sharp waves and symmetric sleep spindles at frequency of 13-14 cycles per second was also seen throughout the drowsy ____. Photic stimulation produced no driving responses and hyperventilation was not performed. LABORATORY DATA: CBC revealed white blood cells of 4900, hemoglobin 10.5, hematocrit 32.2 and platelet count 118,000. Chemistry revealed sodium of 144, potassium 3.6, chloride 109, CO2 of 29, BUN 25, creatinine 1.5, glucose is 82 and calcium is 8.5. IMPRESSION: 1. Weakness of the lower extremities resulting in a fall, etiology uncertain, probably a syncopal attack versus cardiac arrhythmia. Negative EEG for seizure, but is consistent with diffuse cerebral dysfunctions because of slowing of the posterior dominant rhythm and diffuse slowing of the background activities. 2. History of left hemiplegia due to old stroke. 4. Multiple medical problems include hypertension, hyperlipidemia, anxiety and depressions. RECOMMENDATIONS: Continue with current management initiated by Cardiology and Dr. Pennington. Physical therapy as tolerated. M Silvana MONTOYA MD DR: DAWNA/rose JOB#: [id number] / [id number]
[2017-01-08 14:23] VITALS: BP 158/90
[2017-01-08] MEDS ORDERED: CARV12.5 PO (14:40)
--- NOTE | 2017-01-08 16:40 | DS ---
DATE OF DISCHARGE: 01/08/2017 HOSPITAL COURSE: The patient is resting slightly propped up, awake, alert, and responding appropriately. He denied any complaint. He was investigated extensively, he had an EEG done by Dr. Davis, apparently no evidence of seizures seen. He has had also an echocardiogram as his cardiac enzymes were slightly elevated and his echocardiogram showed normal left ventricular systolic function. He had nuclear stress test, which was unremarkable with no evidence of stress-induced EKG changes, normal myocardial perfusion at stress and rest, normal ejection fraction of more than 66%. His bilateral carotid Doppler ultrasound was negative. He remained hemodynamically stable and afebrile, a decision was made for him to be transferred back to [facility] in [place]. PHYSICAL EXAMINATION: GENERAL: When I examined him this afternoon, he looked well and was clearly in no apparent respiratory distress, pale, but no jaundice, cyanosis, or thyromegaly. No jugular venous distention. No lower limb edema. VITAL SIGNS: His heart rate was 59, blood pressure 158/90, temperature was 98.6, respiratory rate was 20, and oxygen saturation was 96%. HEAD, EYES, EARS, NOSE AND THROAT: Showed normocephalic, atraumatic. NECK: Supple. HEART: Showed normal first and second heart sounds with no gallop, rub or murmur. CHEST: Clear to auscultation. No crepitation or rhonchi. ABDOMEN: Distended, soft, and nontender. No guarding or rigidity. No organomegaly. All hernial orifices are intact. Bowel sounds are normal. NEUROLOGIC: He was awake, alert, responding appropriately. All cranial nerves are intact. He has left-sided hemiplegia. LABORATORY DATA: His lab work this morning showed . His chemistry showed serum sodium of 145, potassium 4.1, chloride 110, bicarbonate 29, anion gap of 60, BUN 26, creatinine 1.3, estimated GFR was 66.6 mL per minute. His glucose was 77, calcium was 8.5. Total bilirubin, AST, ALT, and alkaline phosphatase were normal. His total protein was 5.8, albumin was 2.6. White cell count of 5400, hemoglobin 9.9, hematocrit 31, MCV 93, and platelet count was 96,000. DISCHARGE MEDICATIONS: The patient will be discharged to continue on the following medications: Tylenol 600 mg every 4 hours, albuterol sulfate 1 inhalation every 6 hours, aspirin 81 mg once a day, atorvastatin calcium 20 mg at bedtime, baclofen 10 mg at bedtime, baclofen 5 mg during the daytime, bisacodyl Dulcolax suppository 10 mg rectally as needed for constipation, buspirone 10 mg 4 times a day, cholecalciferol for vitamin D3 2000 international units once a day, diclofenac sodium for Voltaren gel 1 gram applied topically every 12 hours as needed for pain, Depakote Sprinkles 750 mg b.i.d., Aricept 10 mg once a day, hydralazine 100 mg 3 times a day, lisinopril 40 mg daily, loperamide 2 mg every 2 hours as needed, Mylanta 15 mL as needed every 6 hours for dyspepsia, milk of magnesia 30 mL p.o. daily, Namenda 10 mg twice a day, multivitamin with mineral 1 tablet once a day, nifedipine for Procardia XL 60 mg once a day, potassium chloride 20 mEq 3 times per week, propylene glycol for Systane 1 drop to both eyes 4 times a day, Senna-S 1 tablet twice a day, sertraline 125 mg daily, sodium chloride saline nasal spray one spray to each nostril 3 times a day, trazodone 50 mg at bedtime, and warfarin once a day. PLAN: My plan is to cut down his carvedilol to 12.5 mg twice a day, discontinue his furosemide and see how he does with that. INDER MIRELES MD DR: ANTOINETTE/rose JOB#: [id number] / [id number]
== END 2017-01-08 15:20 | DRG 683 ==
LOC: ER 13:05 → 1 SOUTH 15:10 → OBSVTOIN 15:10
PROVIDERS: ADMIT Internal Medicine; ATTEND Internal Medicine
DX: N17.9 Acute kidney failure, unspecified (principal); I69.354 Hemiplegia and hemiparesis following cerebral infarction affecting left non-dominant side; G45.9 Transient cerebral ischemic attack, unspecified; R56.9 Unspecified convulsions; R55 Syncope and collapse; E11.9 Type 2 diabetes mellitus without complications; E78.5 Hyperlipidemia, unspecified; E86.0 Dehydration; F41.9 Anxiety disorder, unspecified; I50.9 Heart failure, unspecified; I95.9 Hypotension, unspecified; R00.1 Bradycardia, unspecified; E66.9 Obesity, unspecified; Z68.27 Body mass index [BMI] 27.0-27.9, adult; I13.10 Hypertensive heart and chronic kidney disease without heart failure, with stage 1 through stage 4 chronic kidney disease, or unspecified chronic kidney disease; N18.9 Chronic kidney disease, unspecified
CPT/HCPCS: 36415; 36600; 70450; 71010; 78452; 80048; 80053; 80061; 80164; 81001; 82553; 82803; 82947; 83735; 83880; 84443; 84484; 85027; 85610; 85730; 87040; 87641; 93005; 93017; 93306; 93880; 95816; 96374; 96375; 96376; A9500; J2785; 97530; 99291-25; J7030

== ENCOUNTER 2017-03-22 17:10 | Inpatient (IN) | payer MEDICARE, OTHER ==
[2017-03-22] VITALS (25 sets, daily range): BP systolic 146–209; BP diastolic 83–113
[~2017-03-22] VITALS: Ht 190.5 cm; Wt 99.5 kg
[~2017-03-22 17:10] MED LIST changes: -ALBU8.5H3 INH; +ALBU8.5H8 INH; +CARV12.5 PO; +DICL100G18 TP; -DICL100G7 TP; -DONE10TA34 PO; +DONE10TA61 PO; -POTA20LI PO; +POTA20LI27 PO; -PROP15DR OP; -PROP15DR OU; +PROP15DR40 OP; +PROP15DR40 OU; +SERT100T8 PO; +SODI30SP NS
--- NOTE | 2017-03-22 17:37 | EKG ---
[address] [address] Test Date: 2017-03-22 Test Time: 17:37:47 Pat Name: HUY TEAGUE Department: Room: Gender: M [employer]: : 1950 Requested By: WILL PATTERSON Order Number: [id number] Reading MD: Nicholas Roldan Measurements Intervals [place] Rate: 67 P: 56 MI: 210 QRS: -13 QRSD: 94 T: 134 QT: 428 QTc: 455 Interpretive Statements SINUS RHYTHM SUSPICIOUS FOR PRIOR REDDY-SEPTAL INFARCT Electronically Signed On 03-24-2017 10:33:02 CDT by Nicholas Roldan
--- NOTE | 2017-03-22 17:50 | PHYS DOC ---
General Chief Complaint: NEURO SYMPTOMS/DEFICITS Stated Complaint: STROKE SYMPTOMS Time Seen by MD: 17:11 Source: patient, EMS, halfway records ([facility] staff) Exam Limitations: clinical condition Problems: (WILL PATTERSON DO) Time Seen by MD: 19:29 Problems: (VALENTE NGUYEN MD) History of Present Illness Initial Comments Pt is 66/M history of CVA with left sided paralysis to ED via EMS from [facility] for possible CVA. [facility] staff relays via phone that pt was lethargic with decreased responsiveness all morning, glucose "lower than normal" earlier today, but that it had improved to 100 last check. Pt last known well at 1630, pt was found in bed unresponsive. Pt baseline is alert/confused with left sided paralysis from prior CVA. EMS reports pt GCS 3 on arrival with elevated BP protecting his airway. On ED arrival pt starting to respond and follow instructions, and upon return from CT evaluation pt able to answer questions. He denies pain or SOB Timing/Duration: other (1630 last known well) Severity: moderate Modifying Factors: improves with other Associated Symptoms: other (WILL PATTERSON DO) Allergies: Coded Allergies: No Known Drug Allergies (Unverified , 11/08/15) Past Medical History Medical History: CVA/TIA/stroke (right sided paralysis sequelae), deep vein thrombosis (takes coumadin), diabetes, heart disease, hypertension, other (MDD, HLP, generalized weakness, aphasia, CHF, Alzheimer's) Surgical History: noncontributory (WILL PATTERSON DO) Social History Smoker: non-smoker Alcohol: none Drugs: none (WILL PATTERSON DO) Review of Systems Constitutional: denies chills, denies fever, weakness Respiratory: denies cough, denies shortness of breath, denies wheezing Cardiovascular: denies chest pain, denies palpitations Gastrointestinal: denies abdominal pain, denies diarrhea, denies nausea, denies vomiting Genitourinary: denies dysuria, denies frequency, denies hematuria Musculoskeletal: denies back pain, denies joint swelling, denies neck pain Psychiatric/Neurological: see HPI, denies headache Hematologic/Lymphatic: see HPI All Other Systems: Reviewed and Negative (pt has h/o Alzheimer's, questionable historian) (WILL PATTERSON DO) Physical Exam General Appearance: no apparent distress (very lethargic, follows verbal instructions ) Eyes: bilateral eye other (pt refuses to open eyes for evaluation initially, mild yellow disch b/l no conjunctival injection) Ear, Nose, Throat: hearing grossly normal, normal ENT inspection, normal pharynx Neck: non-tender, supple Respiratory: no respiratory distress, other (coarse BS b/l) Cardiovascular: normal peripheral pulses, regular rate, rhythm, other (2+ pitting LE edema) Gastrointestinal: non tender, soft Back: no CVA tenderness, no vertebral tenderness Extremities: non-tender (mild L UE contractures, no trauma, 2+ pitting LE edema ), no calf tenderness Neurologic/Psychiatric: other (decreased responsiveness initially quickly improved to baseline mental/neuro status) Skin: normal color, warm/dry (WILL PATTERSON DO) Orders, Labs, Meds EKG: NSR 67 bpm, T flattening v4-6 no STEMI. Interpreted by me. 175: Radiologist called CT Head report, he notes old CVAs no acute process, white matter dz worsened vs prior study. 1905: Pt currently awake/alert at his neuro baseline. States he remembers EMS transport, denies any complaints. Studies pending, pt signed out to Dr Nguyen at 1800 shift change. See his documentation for further results/disposition. (WILL PATTERSON DO) Orders, Labs, Meds Laboratory Tests Test 03/22/17 17:26 03/22/17 17:35 03/22/17 17:58 Glucose (Fingerstick) 97 mg/dL (70-99) White Blood Count 5.3 x10^3/uL (4.0-11.0) Red Blood Count 4.34 x10^6/uL (4.30-5.70) Hemoglobin 13.0 g/dL (13.0-17.5) Hematocrit 39.1 % (39.0-53.0) Mean Corpuscular Volume 90 fL (79-100) Mean Corpuscular Hemoglobin 30 pg (25-35) Mean Corpuscular Hemoglobin Concent 33 g/dL (31-37) Red Cell Distribution Width 14.4 % (11.5-14.5) Platelet Count 127 x10^3/uL (140-400) L Neutrophils (%) (Auto) 52 % (31-73) Lymphocytes (%) (Auto) 33 % (24-48) Monocytes (%) (Auto) 11 % (0-9) H Eosinophils (%) (Auto) 3 % (0-3) Basophils (%) (Auto) 1 % (0-3) Neutrophils # (Auto) 2.8 x10^3uL (1.8-7.7) Lymphocytes # (Auto) 1.8 x10^3/uL (1.0-4.8) Monocytes # (Auto) 0.6 x10^3/uL (0.0-1.1) Eosinophils # (Auto) 0.2 x10^3/uL (0.0-0.7) Basophils # (Auto) 0.0 x10^3/uL (0.0-0.2) Erythrocyte Sedimentation Rate 21 (0-15) H Prothrombin Time 27.5 SEC (9.4-11.4) H Prothrombin Time INR 2.7 (0.9-1.1) H PTT 38 SEC (23-33) H D-Dimer (Eunice) 0.27 mg/L (0.00-0.50) Sodium Level 139 mmol/L (136-145) Potassium Level 4.5 mmol/L (3.5-5.1) Chloride Level 104 mmol/L (98-107) Carbon Dioxide Level 28 mmol/L (21-32) Anion Gap 7 (6-14) Blood Urea Nitrogen 16 mg/dL (8-26) Creatinine 1.3 mg/dL (0.7-1.3) Estimated GFR (Cockcroft-Gault) 66.6 BUN/Creatinine Ratio 12 (6-20) Glucose Level 95 mg/dL (70-99) Lactic Acid Level 1.4 mmol/L (0.4-2.0) Calcium Level 9.2 mg/dL (8.5-10.1) Magnesium Level 2.1 mg/dL (1.8-2.4) Total Bilirubin 0.5 mg/dL (0.2-1.0) Aspartate Amino Transferase (AST) 16 U/L (15-37) Alanine Aminotransferase (ALT) 13 U/L (16-63) L Alkaline Phosphatase 58 U/L (46-116) Creatine Kinase 69 U/L (39-308) Troponin I Quantitative 0.025 ng/mL (0-0.055) C-Reactive Protein 2.0 mg/L (0-3.3) FD-Hix-P-Type Natriuretic Peptide 848 pg/mL (0-124) H Total Protein 7.0 g/dL (6.4-8.2) Albumin 3.1 g/dL (3.4-5.0) L Albumin/Globulin Ratio 0.8 (1.0-1.7) L Valproic Acid Level 58 mcg/mL (50-100) Valproic Acid Last Dose Date 03/22/17 Valproic Acid Last Dose Time 0700 Vital Signs Date Time Temp Pulse Resp B/P (MAP) Pulse Ox O2 Delivery O2 Flow Rate FiO2 03/22/17 17:13 98.3 64 16 98 Room Air 03/22/17 19:23 185/116 (139) Vital Signs Date Time Temp Pulse Resp B/P (MAP) Pulse Ox O2 Delivery O2 Flow Rate FiO2 03/22/17 19:23 66 16 185/116 (139) 98 Room Air 03/22/17 17:13 98.3 IMAGING REPORT Signed PATIENT: HUY TEAGUE ACCOUNT: [id number] : 1950 LOCATION: ER AGE: 66 SEX: M EXAM STATUS: REG ER ORD. PHYSICIAN: WILL PATTERSON DO REASON: cva PROCEDURE: CT CODE STROKE HEAD WO CT CODE STROKE HEAD WO dated 03/22/2017 5:23 PM Indication: CODE STROKE Comparison: November 08, 2015 Technique: CT imaging was performed of the head. One or more of the following individualized dose reduction techniques were utilized for this examination: 1. Automated exposure control 2. Adjustment of the mA and/or kV according to patient size 3. Use of iterative reconstruction technique Findings: There is some motion degradation. No convincing acute intracranial hemorrhage is identified. There is area of low density of the medial left temporal lobe more pronounced than previously although fairly hypodense. There is again old infarct centered in the right thalamus and basal ganglia with associated volume loss. There is other multifocal moderate ill-defined low density of the supratentorial white matter greatest in the periatrial white matter and parietal lobes overall greater than previously. There is no midline shift. Ventricular size is considered within normal limits given mild generalized supratentorial atrophy. No acute calvarial abnormality is identified. Mastoid air cells and visualized paranasal sinuses are overall aerated. Impression: 1. There is no evidence of acute intracranial hemorrhage. 2. There is again old infarct of the right thalamus and basal ganglia. Encephalomalacia of the medial left temporal lobe has developed since the previous 2016 exam compatible with previous infarct. Ill-defined low density of the supratentorial white matter is greater than previous exam, nonspecific findings probably due to chronic microvascular ischemic disease. There is generalized supratentorial atrophy. Preliminary interpretation was provided by Dr. Urrutia to the emergency Department March 22, 2017 at conclusion of the exam, although exam could not be dictated at that time due to technical problems. Electronically signed by: Elpidio Marley MD (03/22/2017 6:03 PM) DICTATED AND SIGNED BY: ELPIDIO MARLEY MD DATE: 03/22/171758 CC: CELI GUILLERMO MD; WILL PATTERSON DO ~ His care was turned over to me by Dr. patterson in approximately 1930 discussed patient's complaint initial presentation hypoglycemia and mental status changes that are now improved. There is some concerning history of hypertension with pressures now over 200 although patient is at baseline according to family members at bedside and patient himself this is now the third episode of near- syncope or syncope with altered mental status changes that this patient has experienced last several months. His troponin and a mildly elevated 0.0-5 this may be a cardiac cause of syncope he would benefit from inpatient cardiology as well as neurology evaluation. Given his prior history of CAD as well as stroke with residual deficits he is high risk for cardiogenic syncope during would advise the collection of serial cardiac enzymes as well as cardiology evaluation in the morning. Patient may benefit neurology evaluation to ensure that this patient is not suffering from some subtle seizure activity. Lorraine. Discussed case with internal medicine physician who agreed with admission his concern as well as mine was this elevated blood pressure persistent although no interventions been offered at this time. Patient's baseline neuro exam is essentially change at this time. There is no subtle increased weakness or new paralysis with dysarthria dysphagia or vision changes. He may benefit from aggressive blood pressure management his INR is elevated 2.7 so he is unfortunately not a candidate for tPA being on a blood thinning medication. There is no evidence of intercranial hemorrhage or subarachnoid hemorrhage at this time. We may continue imaging his brain with MRI MRA of the head and neck which be done tomorrow after neurology evaluation. At this point he'll be admitted to the ICU for close monitoring of his blood pressure and continuous cardiac enzymes to ensure no cardiogenic causes syncope is notified. My syncope differential includes but not limited to: Neurally mediated vasovagal syncope, situational syncope, cardiac sinus syncope , orthostatic hypertension, medications, psychiatric interventions, neurologic syncope, cardiogenic syncopal B, to include organic heart disease congestive heart failure, cardiac dysrhythmia, seizure disorder, stroke or transient ischemic attack, bradycardia dysrhythmias, tachycardia dysrhythmias, PT, V. fib V. fib, cardiac abnormalities like first degree secondary third-degree AV blocks , prolonged QT, hypertrophic Oneil myopathy, severe pulmonic stenosis, pulmonary arterial hypertension, atrial myxomas, aortic stenosis, valvular failure, alcohol consumption, adrenal insufficiency, drug effects from things like antidepressants, antihypertensive agents like beta blockers, vasodilators including calcium channel blockers and nitrates, autonomic insufficiency. She' ll be admitted to the hospital neurology and cardiology evaluations will be initiated. His urinalysis was also evaluated which doesn't demonstrate any signs of infection. (VALENTE NGUYEN MD) WILL PATTERSON DO March 22, 2017 17:50 VALENTE NGUYEN MD March 22, 2017 19:47
[2017-03-22 17:57] LABS: BASO % 1 % (0-3); EOS # 0.2 x10^3/uL (0.0-0.7); EOS % 3 % (0-3); HEMATOCRIT 39.1 % (39.0-53.0); LYMPH # 1.8 x10^3/uL (1.0-4.8); LYMPH % 33 % (24-48); MEAN CORPUSCULAR HEMOGLOBIN 30 pg (25-35); MEAN CORPUSCULAR HGB CONC 33 g/dL (31-37); MEAN CORPUSCULAR VOLUME 90 fL (79-100); MONO # 0.6 x10^3/uL (0.0-1.1); MONO % 11 % (0-9); NEUT # 2.8 x10^3uL (1.8-7.7); NEUT % 52 % (31-73); PLATELET COUNT 127 x10^3/uL (140-400); RED BLOOD COUNT 4.34 x10^6/uL (4.30-5.70); RED CELL DISTRIBUTION WIDTH 14.4 % (11.5-14.5); WHITE BLOOD COUNT 5.3 x10^3/uL (4.0-11.0)
--- NOTE | 2017-03-22 18:06 | RAD ---
CT CODE STROKE HEAD WO dated 03/22/2017 5:23 PM Indication: CODE STROKE Comparison: November 08, 2015 Technique: CT imaging was performed of the head. One or more of the following individualized dose reduction techniques were utilized for this examination: 1. Automated exposure control 2. Adjustment of the mA and/or kV according to patient size 3. Use of iterative reconstruction technique Findings: There is some motion degradation. No convincing acute intracranial hemorrhage is identified. There is area of low density of the medial left temporal lobe more pronounced than previously although fairly hypodense. There is again old infarct centered in the right thalamus and basal ganglia with associated volume loss. There is other multifocal moderate ill-defined low density of the supratentorial white matter greatest in the periatrial white matter and parietal lobes overall greater than previously. There is no midline shift. Ventricular size is considered within normal limits given mild generalized supratentorial atrophy. No acute calvarial abnormality is identified. Mastoid air cells and visualized paranasal sinuses are overall aerated. Impression: 1. There is no evidence of acute intracranial hemorrhage. 2. There is again old infarct of the right thalamus and basal ganglia. Encephalomalacia of the medial left temporal lobe has developed since the previous 2016 exam compatible with previous infarct. Ill-defined low density of the supratentorial white matter is greater than previous exam, nonspecific findings probably due to chronic microvascular ischemic disease. There is generalized supratentorial atrophy. Preliminary interpretation was provided by Dr. Urrutia to the emergency Department March 22, 2017 at conclusion of the exam, although exam could not be dictated at that time due to technical problems. Electronically signed by: Saul Yanez MD (03/22/2017 6:03 PM)
[2017-03-22 18:20] LABS: ALBUMIN 3.1 g/dL (3.4-5.0); ALBUMIN/GLOBULIN RATIO 0.8 (1.0-1.7); CALCIUM 9.2 mg/dL (8.5-10.1); CREATININE 1.3 mg/dL (0.7-1.3); GFR 66.6; MAGNESIUM 2.1 mg/dL (1.8-2.4); POTASSIUM 4.5 mmol/L (3.5-5.1); TOTAL BILIRUBIN 0.5 mg/dL (0.2-1.0)
[2017-03-22 18:35] LABS: VAL ACID 58 mcg/mL (50-100)
[2017-03-22 19:17] LABS: SEDIMENTATION RATE 21 (0-15)
[2017-03-22 19:38] LABS: BILIRUBIN,URINE NEG (NEG); CLARITY,URINE CLEAR; COLOR,URINE STRAW; GLUCOSE,URINE NEG (NEG)
[2017-03-22 19:39] LABS: BACTERIA,URINE 0 /HPF (0-FEW); NITRITE,URINE NEG (NEG); RBC,URINE 0 /HPF (0-2); SQUAMOUS EPITHELIAL CELL,UR OCC /LPF; UROBILINOGEN,URINE 0.2 mg/dL (0.2 mg/dL); WBC,URINE OCC /HPF (0-4)
[2017-03-22] MEDS ORDERED: LABETALOL 20 MG/4 ML DISP.SYRIN. IVP ONE (19:45)
[2017-03-22] MEDS ORDERED: ONDANSETRON PF 4 MG/2 ML VIAL. IV PRN (20:00)
[2017-03-22] MEDS ORDERED: fentaNYL PF 100 MCG/2 ML VIAL IV PRN (20:00)
[2017-03-22] MEDS ORDERED: ACETAMINOPHEN 325 MG TABLET PO PRN (20:00)
[2017-03-22] MEDS ORDERED: LABETALOL 200 MG in 0.9 % SODIUM CHLORIDE 150ML 160 ML IV ONE (20:00)
[2017-03-22] MEDS ORDERED: SODIUM CHLORIDE ONE (21:01)
[2017-03-22] MEDS ORDERED: LABETALOL 100 MG/20 ML VIAL. IV ONE ×2 (21:01→21:08)
[2017-03-22] MEDS ORDERED: IV NORMAL SALINE 250ML 250 ML ONE (21:26)
[2017-03-22 21:38] LABS: BARBITURATES NEG (NEG); BENZODIAZEPINES NEG (NEG); CANNABINOIDS NEG (NEG); COCAINE NEG (NEG); METHADONE NEG (NEG); OPIATES NEG (NEG); PHENCYCLIDINE NEG (NEG)
[2017-03-22 21:39] LABS: AMPHETAMINE/METHAMPHETAMINE NEG (NEG)
[2017-03-22] MEDS ORDERED: HYDR-2867 PO (21:58)
[2017-03-22] MEDS ORDERED: ACETAMINOPHEN 500 MG TABLET PO PRN (23:30)
[2017-03-22] MEDS ORDERED: BISACODYL 10 MG SUPP.RECT RC PRN (23:30)
[2017-03-22] MEDS ORDERED: MAG HYDROX/AL HYDROX/SIMETH 30 ML ORAL.SUSP PO PRN (23:30)
[2017-03-22] MEDS ORDERED: DICLOFENAC SODIUM 1% TOPICAL GEL 100GM TUBE. TP PRN (23:30)
[2017-03-22] MEDS ORDERED: ALBUTEROL SULFATE 8GM INHALER. INH PRN (23:30)
--- NOTE | 2017-03-22 23:33 | ACF ---
Admission Criteria Forms MENTAL STATUS CHANGE Clinical Indications for Inpatient Care (Place 'X' for any and all applicable criteria): Ongoing inpatient care may be needed for 1 or more of the following(1)(2)(3)(5)( 6): [X ]I. Suspected serious etiology (eg, medical disorder, ROUGHER OPERATOR event) of altered mental status [ ]II. Danger to self or others not manageable at lower level of care [ ]III. Grave disability (eg, inability to perform self care necessary at lower level of care) [ ]IV. Agitation or inappropriate behavior interfering with care for primary condition (eg, attempting to discontinue lines or drains prematurely, unable to cooperate with respiratory care) [ ]V. Delirium [A] [D][E] as described by 1 or more of the following(26): [ ]a) Delirium due to alcohol or sedative [F] withdrawal [ ]b) Delirium of uncertain etiology that has not responded to appropriate empiric treatment [ ]c) Delirium that prevents performance of a life-sustaining function (eg, feeding or hydrating oneself) [ X]. General contraindications and/or Inappropriate clinical situations for Observational Care in patients with Mental Status Change, when ANY ONE of the following is required: [X ]a) Prediction of prolongation of LOS based on ANY ONE of the following may be considered as a contraindication for observational care 2, 3, 4, 5, 6, 7, 8, 9, 10, 11 [X ]i) Age > 65 yrs. [ ]ii) Patient arriving by ambulance [ ]iii) Patient with high acuity [ ]iv) Patient requiring vital sign monitoring [ ]v) Patient on IV medication [X ]b) Systolic blood pressures greater than or equal to 180mmHg 3, 12 [ ]c) Patient with altered mental status including delirium and other alteration of consciousness, (3) [ ]d) Patient whose discharge disposition will be to a jail home or rehabilitation home should not be managed in Emergency Department Observation Unit. CMS rule requires 3 days hospital stay before such placement.3,13 [ ]e) Patient with failure to thrive due to broad array of etiologies 3,16,17 [ ]f) Inability to ambulate 3,14 Extended stay beyond goal length of stay for the primary condition may be needed until ALL of the following are present(3)(5): [ ]a) Underlying medical etiology of mental status change is absent, or has been established and adequately treated [ ]b) Danger to self or others is absent or manageable at lower level of care. [ ]c) Behavior crisis management, including physical or chemical restraints, is not required or available at lower level of car [ ]d) Substance or alcohol withdrawal is absent or manageable at lower level of care. [ ]e) Behavioral symptoms (eg, agitation, somnolence, inappropriate behavior) are absent, or are manageable at lower level of care. The original [facility] [employer] content created by [facility] has been revised. The portions of the content which have been revised are identified through the use of italic text or in bold, and [facility] has neither reviewed nor approved the modified material. All other unmodified content is copyright [facility]. Please see references footnoted in the original [facility] edition 2016 Admission Criteria Met?: Yes RADHA BARKLEY March 22, 2017 23:33
[2017-03-22] MEDS ORDERED: ALBUTEROL SULFATE 2.5 MG/3 ML NEBU. NEB PRN (23:45)
[2017-03-23] VITALS (59 sets, daily range): BP systolic 122–190; BP diastolic 77–103
[2017-03-23 07:27] LABS: BASO % 1 % (0-3); EOS # 0.2 x10^3/uL (0.0-0.7); EOS % 4 % (0-3); HEMATOCRIT 38.5 % (39.0-53.0); HEMOGLOBIN 12.8 g/dL (13.0-17.5); LYMPH % 38 % (24-48); MEAN CORPUSCULAR HEMOGLOBIN 30 pg (25-35); MEAN CORPUSCULAR HGB CONC 33 g/dL (31-37); MEAN CORPUSCULAR VOLUME 90 fL (79-100); MONO # 0.6 x10^3/uL (0.0-1.1); MONO % 11 % (0-9); NEUT # 2.5 x10^3uL (1.8-7.7); NEUT % 46 % (31-73); PLATELET COUNT 116 x10^3/uL (140-400); RED BLOOD COUNT 4.29 x10^6/uL (4.30-5.70); RED CELL DISTRIBUTION WIDTH 14.4 % (11.5-14.5); WHITE BLOOD COUNT 5.3 x10^3/uL (4.0-11.0)
[2017-03-23 07:33] LABS: CALCIUM 8.7 mg/dL (8.5-10.1); GFR 90.2
[2017-03-23] MEDS: PEG OU PRN (08:09)
[2017-03-23] MEDS: SENNOSIDES/DOCUSATE 8.6/50MG TABLET. PO SCH ×2 (08:09→22:02)
[2017-03-23] MEDS: SERTRALINE 50 MG TABLET. PO SCH (08:09)
[2017-03-23] MEDS: SODIUM CHLORIDE 0.65% NASAL SPRAY 45ML BOTTLE. NS SCH ×3 (08:09→22:02)
[2017-03-23] MEDS: ASPIRIN ENTERIC COATED 81 MG TABLET.DR. PO SCH (08:09)
[2017-03-23] MEDS: PROPYLENE GLYCOL OU PRN (08:09)
[2017-03-23] MEDS: DIVALPROEX 125 MG CAP.SPRINK PO SCH ×2 (08:10→22:03)
--- NOTE | 2017-03-23 08:50 | RAD ---
Portable AP chest. History: CVA AP view was taken of the chest. Lungs are free of infiltrates. Heart is normal in size. There is no pleural effusion. Impression: 1. No acute infiltrates.
[2017-03-23] MEDS ORDERED: POTASSIUM CHLORIDE 20 MEQ/15 ML ORAL LIQUID. PO SCH (09:00)
--- NOTE | 2017-03-23 10:02 | PDOC1 ---
History of Present Illness Reason for Visit: Unresponsive History of Present Illness Pt seen on rounds with his brother present. Pt is a poor historian, and all the information in this H&P is obtained from family, nursing staff, and the chart. Pt apparently had a 45 minute episode of being "unresponsive" at the [place]. His brother reports this is the third episode in the last 2-3 months, and he has been hospitalized each time. To this point, no definitive cause has been identified per his brother. His brother states this morning he is pretty much back to his baseline. He has residual left hemiplegia and baseline confusion from a previous stroke. His brother reports that the previous two episodes lasted longer, and one of them actually occurred while he was in the hospital. 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 It was unlikely that his altered status was due to an acute intracranial issue. He is on warfarin due to his previous stroke. He has dementia and takes meds for that as well, and takes valproic acid as well. This morning, he is alert and answers questions. He was able to eat breakfast and take his pills. He smiles. He has no complaints of pain. Chief Complaint: NEURO SYMPTOMS/DEFICITS Allergies: Coded Allergies: No Known Drug Allergies (Unverified , 11/08/15) Past Medical History Cardiac: CHF, HTN, hyperipidemia [employer]: CVA (also, dementia) Psych: Anxiety Past Surgical History: No pertinent history Family History: No pertinent hx Past Social History Smoke: Quit (2 years ago) Alcohol: other (Quit 2 years ago) Drugs: None Lives: Fdc Review of Systems Review Of Systems Fourteen system , review of systems has been reviewed. See HPI for pertinent positives and negative responses, other salmon all other systems are negative, non pertinent or non contributory Constitutional: No: Fever, Chills, Sweats Eyes: No: Blurry vision, Double vision, Eye Pain ENT: No: Nose congestion, Throat pain Respiratory: No: Cough, Hemoptysis, Shortness of breath Cardiovascular: No: Chest Pain, Palpitations, Edema Gastrointestinal: No: Nausea, Vomiting, Diarrhea, Constipation, Melena, Hematochezia Genitourinary: No: Dysuria, Henaturia Musculoskeletal: No: Muscle Pain, Muscular Weakness SKIN: YES: Warm, Dry, No Rashes Neurological: YES: Confusion (pt at baseline), Tremors (right arm, worse in past 2-3 months per pt's brother), Weakness (chronic left sided), No: Dizziness, Headaches, Seizures Allergies: Coded Allergies: No Known Drug Allergies (Unverified , 11/08/15) Medications Current Medications Labetalol HCl (Normodyne) 20 mg 1X ONCE IVP Last administered on 03/22/17 19: 45; Start 03/22/17 at 19:45; Stop 03/22/17 at 19:46; Status DC Ondansetron HCl (Zofran) 4 mg PRN Q4HRS PRN IV NAUSEA/VOMITING; Start 03/22/17 at 20:00; Stop 03/23/17 at 19:59 Fentanyl Citrate (Fentanyl 2ml Vial) 50 mcg PRN Q2HR PRN IV PAIN; Start at 20:00; Stop 03/23/17 at 19:59 Acetaminophen (Tylenol) 650 mg PRN Q4HRS PRN PO FEVER; Start 03/22/17 at 20:00 ; Stop 03/22/17 at 23:46; Status DC Labetalol HCl 200 mg/Sodium Chloride 200 ml @ 0 mls/hr 1X ONCE IV ; Start 03/22 at 20:00; Stop 03/22/17 at 21:20; Status DC Labetalol HCl (Normodyne) 100 mg STK-MED ONCE IV Last administered on 21:11; Start 03/22/17 at 21:01; Stop 03/22/17 at 21:02; Status DC Sodium Chloride 300 ml @ As Directed STK-MED ONCE .ROUTE Last administered on 03/22/17 21:10; Start 03/22/17 at 21:01; Stop 03/22/17 at 21:02; Status DC Labetalol HCl (Normodyne) 100 mg STK-MED ONCE IV ; Start 03/22/17 at 21:08; Stop 03/22/17 at 21:09; Status DC Nicardipine HCl 50 mg/Sodium Chloride 270 ml @ 0 mls/hr CONT PRN IV SEE I/O RECORD; Start 03/22/17 at 21:30; Stop 03/22/17 at 21:30; Status DC Nicardipine HCl 50 mg/Sodium Chloride 270 ml @ 0 mls/hr CONT PRN IV SEE I/O RECORD Last administered on 03/22/17 21:38; Start 03/22/17 at 21:30 Nicardipine HCl (Cardene) 25 mg STK-MED ONCE IV ; Start 03/22/17 at 21:26; Stop 03/22/17 at 21:27; Status DC Sodium Chloride 250 ml @ As Directed STK-MED ONCE .ROUTE ; Start 03/22/17 at 21 :26; Stop 03/22/17 at 21:27; Status DC Acetaminophen (Tylenol) 500 mg PRN Q4HRS PRN PO MILD PAIN / TEMP; Start at 23:30 Albuterol Sulfate (Ventolin Hfa) 1 puff PRN Q6HRS PRN INH SHORTNESS OF BREATH; Start 03/22/17 at 23:30; Status UNV Aspirin (Aspirin Enteric Coated) 81 mg DAILY PO Last administered on 03/23/17 08:09; Start 03/23/17 at 09:00 Atorvastatin Calcium (Lipitor) 20 mg QHS PO ; Start 03/23/17 at 21:00 Bisacodyl (Dulcolax Supp) 10 mg PRN DAILY PRN RC CONSTIPATION; Start 03/22/17 at 23:30 Carvedilol (Coreg) 12.5 mg BIDWMEALS PO ; Start 03/23/17 at 08:00 Diclofenac Sodium (Voltaren) 1 evan PRN Q12HR PRN TP MODERATE PAIN; Start at 23:30 Divalproex Sodium (Depakote Sprinkles) 750 mg BID PO Last administered on 08:10; Start 03/23/17 at 09:00 Hydralazine HCl (Apresoline) 25 mg TID PO ; Start 03/23/17 at 09:00 Al Hydroxide/Mg Hydroxide (Mylanta Plus Xs) 15 ml PRN Q6HRS PRN PO DYSPEPSIA; Start 03/22/17 at 23:30 Potassium Chloride (KCl Oral Soln) 20 meq 3X/WEEK PO Last administered on 08:09; Start 03/23/17 at 09:00 Polyethyl Glycol/ Propylene Glycol (Systane 0.3-0.4% [facility]) 2 drop PRN QID PRN OU DRY EYE Last administered on 03/23/17 08:09; Start 03/22/17 at 23:30 Senna/Docusate Sodium (Senna Plus) 1 tab BID PO Last administered on 03/23/17 08:09; Start 03/23/17 at 09:00 Sertraline HCl (Zoloft) 125 mg DAILY PO Last administered on 03/23/17 08:09; Start 03/23/17 at 09:00 Sodium Chloride (Saline Mist Nasal) 1 evan TID NS Last administered on 08:09; Start 03/23/17 at 09:00 Warfarin Sodium (Coumadin) 4.5 mg DAILY16 PO ; Start 03/23/17 at 16:00; Status UNV Lisinopril (Prinivil) 40 mg DAILY PO ; Start 03/23/17 at 09:00 Nifedipine (Procardia Xl) 60 mg DAILY PO ; Start 03/23/17 at 09:00 Warfarin Sodium (Coumadin Per Pharmacy) 1 each PRN DAILY PRN MC SEE COMMENTS Last administered on 03/23/17 07:55; Start 03/22/17 at 23:30 Albuterol Sulfate (Ventolin) 2.5 mg PRN Q6HRS PRN NEB SHORTNESS OF BREATH; Start 03/22/17 at 23:45 Warfarin Sodium (Coumadin) 2.5 mg 1X WARF ONCE PO ; Start 03/23/17 at 16:00; Stop 03/23/17 at 16:01 Warfarin Sodium (Coumadin) 2 mg 1X WARF ONCE PO ; Start 03/23/17 at 16:00; Stop 03/23/17 at 16:01 Active Scripts Active Coreg (Carvedilol) 12.5 Mg Tablet 1 Tab PO BID Reported Hydralazine Hcl 10 Mg Tablet 10 Mg PO TID Saline Nasal [place] (Sodium Chloride) 30 Ml [place] 30 Ml NS TID Sertraline Hcl 100 Mg Tablet 125 Mg PO DAILY Mag-Al Plus Xs Suspension (Mag Hydrox/Al Hydrox/Simeth) 30 Ml Oral.susp 15 Ml PO PRN Q6HRS PRN Vitamin D3 (Cholecalciferol (Vitamin D3)) 1,000 Unit Tablet 2,000 Unit PO DAILY Potassium Chloride Oral Liquid (Potassium Chloride) 20 Meq/15 Ml Liquid 20 Meq PO 3X/WEEK Administer on Thursday, Thursday and Thursday Thera-M Tablet (Multivits,Ca,Minerals/Iron/Fa) 1 Each Tablet 1 Tab PO DAILY Namenda (Memantine Hcl) 5 Mg Tablet 10 Mg PO BID Depakote Sprinkle (Divalproex Sodium) 125 Mg Cap.sprink 750 Mg PO BID Warfarin Sodium 5 Mg Tablet 4.5 Mg PO DAILY16 Voltaren (Diclofenac Sodium) 100 Gm Gel..gram. 1 Evan TP PRN Q12HR PRN Trazodone Hcl 50 Mg Tablet 25 Mg PO QHS Systane 0.3-0.4% Eye Drops (Propylene Glycol/Peg 400) 15 Ml Drops 2 Drop OU PRN QID PRN Senokot-S Tablet (Sennosides/Docusate Sodium) 1 Each Tablet 1 Tab PO BID Procardia Xl (Nifedipine) 60 Mg Tab.er.24 60 Mg PO DAILY Hold for SBO less than 100 or Pulse less than 60, Call MD for Pulse less than 50 Milk Of Magnesia (Magnesium Hydroxide) 2,400 Mg/10 Ml Oral.susp 2,400 Mg PO PRN QHS PRN Lisinopril 40 Mg Tablet 40 Mg PO DAILY Imodium A-D (Loperamide Hcl) 1 Mg/7.5 Ml Liquid 2 Mg PO PRN Q2HR PRN Max dose of 16mg in 24 hours Dulcolax (Bisacodyl) 10 Mg Supp.rect 10 Mg RC PRN DAILY PRN Buspirone Hcl 10 Mg Tablet 10 Mg PO QID Baclofen 10 Mg Tablet 5 Mg PO DAILY Baclofen 10 Mg Tablet 10 Mg PO QHS Atorvastatin Calcium 20 Mg Tablet 20 Mg PO QHS Aspir-Low (Aspirin) 81 Mg Tablet.dr 81 Mg PO DAILY Aricept (Donepezil Hcl) 10 Mg Tablet 10 Mg PO QHS Proair Hfa Inhaler (Albuterol Sulfate) 8.5 Gm Hfa.aer.ad 1 Puff INH PRN Q6HRS PRN Acetaminophen 500 Mg Tablet 500 Mg PO PRN Q4HRS PRN NTE 3000mg APAP in 24 hours from all sources Exam Vital Signs Vital Signs Date Time Temp Pulse Resp B/P (MAP) Pulse Ox O2 Delivery O2 Flow Rate FiO2 03/23/17 06:44 71 10 157/94 (115) 98 Room Air 03/23/17 04:59 98.4 General Appearance: Alert, Cooperative, No acute distress HEENT: Atraumatic, PERRLA, EOMI, Mucous membr. moist/pink, Other (Neck supple, no JVD, no thyromegaly, No LAD) Respiratory: Clear to auscultation, Normal air movement Heart: Regular rate, Normal S1, Normal S2, No murmurs Cardiac: HTN Abdominal: Normal bowel sounds, Soft, No tenderness, No hepatospenomegaly, No masses Extremities: No edema, Normal pulses, No tenderness/swelling Skin: No rashes, No breakdown Neuro: Other (Pt has left hemiplegia. Cranial nerves 2-12 grossly intact. There is a resting tremor of the right arm that worsens as pt tries to hold his arm up against resistance. No pill-rolling or cogwheeling noted in the right arm.) Psych/Mental Status: Mood NL Assessment/Plan Assessment/Plan 1. Acute encephalopathy, resolved, likely multifactorial: Neurology has been consulted, MRI result from [facility] in January placed on chart for review. He is at his baseline. INR is therapeutic. Last two visits for similar episodes failed to show any acute intracranial process causing them. I have held a few of his meds in case they are contributing (like his anxiety meds and his dementia meds) . We will continue VPA as that is therapeutic. I will check an ammonia level, though that is unlikely given his rapid recovery. Pt may need an overnight oximetry or Holter to determine if he is having hypoxia or bradycardia while sleeping. No issues noted on telemetry monitoring so far. 2. HTN: Pt is currently on a Cardene drip as his pressures were up in the 200' s systolic on admission. He is on 4 home BP meds, we are going to slowly restart each one and wean him down off the Cardene drip. Would like to keep BP >140 systolic for time being as it may have been elevated due to an acute stroke , and we do not want to lower it too rapidly. 3. CVA w/ residual deficits (L hemiplegia, confusion): Pt is at baseline. Continue warfarin, pharmacy to manage. Control BP and lipids. 4. Anxiety: We may need consult but for now I am holding his Buspar. I will likely restart SSRI to avoid w/d symptoms. 5. Thrombocytopenia: Stable, etiology unclear. Monitor CBC daily while hospitalized. Monitor for signs of bleeding. 6. DVT proph: Pt is therapeutic on warfarin, no need for additional intervention. 7. DIsp: Neurology has been consulted. We may consider d/c back to [place] tomorrow if pt remains stable. May need further workup as outpatient as mentioned above, including f/u with neurology as outpatient. COURSE Allergies Coded Allergies Type Severity Reaction Last Updated Verified No Known Drug Allergies 11/08/15 No Laboratory Tests Test 03/22/17 17:26 03/22/17 17:35 03/22/17 17:58 03/22/17 19:11 Glucose (Fingerstick) 97 mg/dL (70-99) White Blood Count 5.3 x10^3/uL (4.0-11.0) Red Blood Count 4.34 x10^6/uL (4.30-5.70) Hemoglobin 13.0 g/dL (13.0-17.5) Hematocrit 39.1 % (39.0-53.0) Mean Corpuscular Volume 90 fL (79-100) Mean Corpuscular Hemoglobin 30 pg (25-35) Mean Corpuscular Hemoglobin Concent 33 g/dL (31-37) Red Cell Distribution Width 14.4 % (11.5-14.5) Platelet Count 127 x10^3/uL (140-400) Neutrophils (%) (Auto) 52 % (31-73) Lymphocytes (%) (Auto) 33 % (24-48) Monocytes (%) (Auto) 11 % (0-9) Eosinophils (%) (Auto) 3 % (0-3) Basophils (%) (Auto) 1 % (0-3) Neutrophils # (Auto) 2.8 x10^3uL (1.8-7.7) Lymphocytes # (Auto) 1.8 x10^3/uL (1.0-4.8) Monocytes # (Auto) 0.6 x10^3/uL (0.0-1.1) Eosinophils # (Auto) 0.2 x10^3/uL (0.0-0.7) Basophils # (Auto) 0.0 x10^3/uL (0.0-0.2) Erythrocyte Sedimentation Rate 21 (0-15) Prothrombin Time 27.5 SEC (9.4-11.4) Prothromb Time International Ratio 2.7 (0.9-1.1) Activated Partial Thromboplast Time 38 SEC (23-33) D-Dimer (Eunice) 0.27 mg/L (0.00-0.50) Sodium Level 139 mmol/L (136-145) Potassium Level 4.5 mmol/L (3.5-5.1) Chloride Level 104 mmol/L (98-107) Carbon Dioxide Level 28 mmol/L (21-32) Anion Gap 7 (6-14) Blood Urea Nitrogen 16 mg/dL (8-26) Creatinine 1.3 mg/dL (0.7-1.3) Estimated GFR (Cockcroft-Gault) 66.6 BUN/Creatinine Ratio 12 (6-20) Glucose Level 95 mg/dL (70-99) Lactic Acid Level 1.4 mmol/L (0.4-2.0) Calcium Level 9.2 mg/dL (8.5-10.1) Magnesium Level 2.1 mg/dL (1.8-2.4) Total Bilirubin 0.5 mg/dL (0.2-1.0) Aspartate Amino Transf (AST/SGOT) 16 U/L (15-37) Alanine Aminotransferase (ALT/SGPT) 13 U/L (16-63) Alkaline Phosphatase 58 U/L (46-116) Creatine Kinase 69 U/L (39-308) Troponin I Quantitative 0.025 ng/mL (0-0.055) C-Reactive Protein 2.0 mg/L (0-3.3) XF-Jnf-[id number]-Type Natriuretic Peptide 848 pg/mL (0-124) Total Protein 7.0 g/dL (6.4-8.2) Albumin 3.1 g/dL (3.4-5.0) Albumin/Globulin Ratio 0.8 (1.0-1.7) Valproic Acid (Depakene) Level 58 mcg/mL (50-100) Valproic Acid Last Dose Date 03/22/17 Valproic Acid Last Dose Time 0700 Urine Collection Type Unknown Urine Color Straw Urine Clarity Clear Urine pH 7.5 Urine Specific [place] 1.020 Urine Protein Neg (NEG-TRACE) Urine Glucose (UA) Neg mg/dL (NEG) Urine Ketones (Stick) Neg mg/dL (NEG) Urine Blood Neg (NEG) Urine Nitrite Neg (NEG) Urine Bilirubin Neg (NEG) Urine Urobilinogen Dipstick 0.2 mg/dL (0.2 mg/dL) Urine Leukocyte Esterase Neg (NEG) Urine RBC 0 /HPF (0-2) Urine WBC Occ /HPF (0-4) Urine Squamous Epithelial Cells Occ /LPF Urine Bacteria 0 /HPF (0-FEW) Urine Opiates Screen Neg (NEG) Urine Methadone Screen Neg (NEG) Urine Barbiturates Neg (NEG) Urine Phencyclidine Screen Neg (NEG) Urine Amphetamine/Methamphetamine Neg (NEG) Urine Benzodiazepines Screen Neg (NEG) Urine Cocaine Screen Neg (NEG) Urine Cannabinoids Screen Neg (NEG) Urine Ethyl Alcohol Neg (NEG) Test 03/22/17 22:17 03/23/17 01:00 03/23/17 07:14 03/23/17 07:29 Glucose (Fingerstick) 86 mg/dL (70-99) 77 mg/dL (70-99) Troponin I Quantitative 0.029 ng/mL (0-0.055) 0.017 ng/mL (0-0.055) White Blood Count 5.3 x10^3/uL (4.0-11.0) Red Blood Count 4.29 x10^6/uL (4.30-5.70) Hemoglobin 12.8 g/dL (13.0-17.5) Hematocrit 38.5 % (39.0-53.0) Mean Corpuscular Volume 90 fL (79-100) Mean Corpuscular Hemoglobin 30 pg (25-35) Mean Corpuscular Hemoglobin Concent 33 g/dL (31-37) Red Cell Distribution Width 14.4 % (11.5-14.5) Platelet Count 116 x10^3/uL (140-400) Neutrophils (%) (Auto) 46 % (31-73) Lymphocytes (%) (Auto) 38 % (24-48) Monocytes (%) (Auto) 11 % (0-9) Eosinophils (%) (Auto) 4 % (0-3) Basophils (%) (Auto) 1 % (0-3) Neutrophils # (Auto) 2.5 x10^3uL (1.8-7.7) Lymphocytes # (Auto) 2.0 x10^3/uL (1.0-4.8) Monocytes # (Auto) 0.6 x10^3/uL (0.0-1.1) Eosinophils # (Auto) 0.2 x10^3/uL (0.0-0.7) Basophils # (Auto) 0.0 x10^3/uL (0.0-0.2) Prothrombin Time 24.4 SEC (9.4-11.4) Prothromb Time International Ratio 2.4 (0.9-1.1) Sodium Level 140 mmol/L (136-145) Potassium Level 4.0 mmol/L (3.5-5.1) Chloride Level 103 mmol/L (98-107) Carbon Dioxide Level 27 mmol/L (21-32) Anion Gap 10 (6-14) Blood Urea Nitrogen 13 mg/dL (8-26) Creatinine 1.0 mg/dL (0.7-1.3) Estimated GFR (Cockcroft-Gault) 90.2 Glucose Level 80 mg/dL (70-99) Calcium Level 8.7 mg/dL (8.5-10.1) Current Medications Medications (Trade) Dose Ordered Sig/Romeo Route PRN Reason Start Time Stop Time Status Last Admin Dose Admin Labetalol HCl (Normodyne) 20 mg 1X ONCE IVP 03/22/17 19:45 03/22/17 19:46 DC 03/22/17 19:45 Ondansetron HCl (Zofran) 4 mg PRN Q4HRS PRN IV NAUSEA/VOMITING 03/22/17 20:00 03/23/17 19:59 Fentanyl Citrate (Fentanyl 2ml Vial) 50 mcg PRN Q2HR PRN IV PAIN 03/22/17 20:00 03/23/17 19:59 Acetaminophen (Tylenol) 650 mg PRN Q4HRS PRN PO FEVER 03/22/17 20:00 03/22/17 23:46 DC Labetalol HCl 200 mg/Sodium Chloride 200 ml @ 0 mls/hr 1X ONCE IV 03/22/17 20:00 03/22/17 21:20 DC Labetalol HCl (Normodyne) 100 mg STK-MED ONCE IV 03/22/17 21:01 03/22/17 21:02 DC 03/22/17 21:11 Sodium Chloride 300 ml @ As Directed STK-MED ONCE .ROUTE 03/22/17 21:01 03/22/17 21:02 DC 03/22/17 21:10 Labetalol HCl (Normodyne) 100 mg STK-MED ONCE IV 03/22/17 21:08 03/22/17 21:09 DC Nicardipine HCl 50 mg/Sodium Chloride 270 ml @ 0 mls/hr CONT PRN IV SEE I/O RECORD 03/22/17 21:30 03/22/17 21:30 DC Nicardipine HCl 50 mg/Sodium Chloride 270 ml @ 0 mls/hr CONT PRN IV SEE I/O RECORD 03/22/17 21:30 03/22/17 21:38 Nicardipine HCl (Cardene) 25 mg STK-MED ONCE IV 03/22/17 21:26 03/22/17 21:27 DC Sodium Chloride 250 ml @ As Directed STK-MED ONCE .ROUTE 03/22/17 21:26 03/22/17 21:27 DC Acetaminophen (Tylenol) 500 mg PRN Q4HRS PRN PO MILD PAIN / TEMP 03/22/17 23:30 Albuterol Sulfate (Ventolin Hfa) 1 puff PRN Q6HRS PRN INH SHORTNESS OF BREATH 03/22/17 23:30 UNV Aspirin (Aspirin Enteric Coated) 81 mg DAILY PO 03/23/17 09:00 03/23/17 08:09 Atorvastatin Calcium (Lipitor) 20 mg QHS PO 03/23/17 21:00 Bisacodyl (Dulcolax Supp) 10 mg PRN DAILY PRN RC CONSTIPATION 03/22/17 23:30 Carvedilol (Coreg) 12.5 mg BIDWMEALS PO 03/23/17 08:00 Diclofenac Sodium (Voltaren) 1 evan PRN Q12HR PRN TP MODERATE PAIN 03/22/17 23:30 Divalproex Sodium (Depakote Sprinkles) 750 mg BID PO 03/23/17 09:00 03/23/17 08:10 Hydralazine HCl (Apresoline) 25 mg TID PO 03/23/17 09:00 Al Hydroxide/Mg Hydroxide (Mylanta Plus Xs) 15 ml PRN Q6HRS PRN PO DYSPEPSIA 03/22/17 23:30 Potassium Chloride (KCl Oral Soln) 20 meq 3X/WEEK PO 03/23/17 09:00 03/23/17 08:09 Polyethyl Glycol/ Propylene Glycol (Systane 0.3-0.4% [facility]) 2 drop PRN QID PRN OU DRY EYE 03/22/17 23:30 03/23/17 08:09 Senna/Docusate Sodium (Senna Plus) 1 tab BID PO 03/23/17 09:00 03/23/17 08:09 Sertraline HCl (Zoloft) 125 mg DAILY PO 03/23/17 09:00 03/23/17 08:09 Sodium Chloride (Saline Mist Nasal) 1 evan TID NS 03/23/17 09:00 03/23/17 08:09 Warfarin Sodium (Coumadin) 4.5 mg DAILY16 PO 03/23/17 16:00 UNV Lisinopril (Prinivil) 40 mg DAILY PO 03/23/17 09:00 Nifedipine (Procardia Xl) 60 mg DAILY PO 03/23/17 09:00 Warfarin Sodium (Coumadin Per Pharmacy) 1 each PRN DAILY PRN MC SEE COMMENTS 03/22/17 23:30 03/23/17 07:55 Albuterol Sulfate (Ventolin) 2.5 mg PRN Q6HRS PRN NEB SHORTNESS OF BREATH 03/22/17 23:45 Warfarin Sodium (Coumadin) 2.5 mg 1X WARF ONCE PO 03/23/17 16:00 03/23/17 16:01 Warfarin Sodium (Coumadin) 2 mg 1X WARF ONCE PO 03/23/17 16:00 03/23/17 16:01 I & O 03/23/17 00:00 Intake Total 50 ml Balance 50 ml Vital Signs Date Time Temp Pulse Resp B/P (MAP) Pulse Ox O2 Delivery O2 Flow Rate FiO2 03/23/17 06:44 71 10 157/94 (115) 98 Room Air 03/23/17 04:59 98.4 CXR: No acute cardiopulmonary process. CT head: Findings: There is some motion degradation. No convincing acute intracranial hemorrhage is identified. There is area of low density of the medial left temporal lobe more pronounced than previously although fairly hypodense. There is again old infarct centered in the right thalamus and basal ganglia with associated volume loss. There is other multifocal moderate ill-defined low density of the supratentorial white matter greatest in the periatrial white matter and parietal lobes overall greater than previously. There is no midline shift. Ventricular size is considered within normal limits given mild generalized supratentorial atrophy. No acute calvarial abnormality is identified. Mastoid air cells and visualized paranasal sinuses are overall aerated. Impression: 1. There is no evidence of acute intracranial hemorrhage. 2. There is again old infarct of the right thalamus and basal ganglia. Encephalomalacia of the medial left temporal lobe has developed since the previous 2016 exam compatible with previous infarct. Ill-defined low density of the supratentorial white matter is greater than previous exam, nonspecific findings probably due to chronic microvascular ischemic disease. There is generalized supratentorial atrophy. Preliminary interpretation was provided by Dr. Urrutia to the emergency Department March 22, 2017 at conclusion of the exam, although exam could not be dictated at that time due to technical problems. KAMERON MARC MD March 23, 2017 10:02
[2017-03-23] MEDS: CARVEDILOL 12.5 MG TABLET PO SCH ×2 (11:19→17:02)
[2017-03-23] MEDS: hydrALAZINE 25 MG TABLET PO SCH ×3 (13:02→22:02)
[2017-03-23] MEDS: LISINOPRIL 20 MG TABLET PO SCH (13:02)
[2017-03-23] MEDS ORDERED: WARFARIN 2 MG TABLET. PO ONE (16:00)
[2017-03-23] MEDS ORDERED: WARFARIN 2.5 MG TABLET. PO ONE (16:00)
[2017-03-23] MEDS ORDERED: WARFARIN 5 MG TABLET. PO SCH (16:00)
[2017-03-23] MEDS: ATORVASTATIN CALCIUM 20 MG TABLET PO SCH (22:02)
--- NOTE | 2017-03-23 23:33 | CONS ---
DATE OF CONSULTATION: 03/23/2017 NEURO CONSULT REASON FOR CONSULTATION: Acute mental status changes, rule out stroke. HISTORY OF PRESENT ILLNESS: This is a 66-year-old right-handed -Nigerian male who was admitted today through Emergency Room after he was found lethargic and unresponsive this morning. In the Emergency Room, he was found to have a systolic blood pressure at 209/152. He became unresponsive for approximately 45 minutes before he gradually regain his awareness. Currently, the patient denies headaches, visual disturbances, nausea, vomiting, chest pain, shortness of breath or palpitation. He does not recall the event. The patient has 2 similar spell in the last 3 months and he was diagnosed with possible syncope versus seizure or TIA and bradycardia. The patient had a stroke in last year resulted in left hemiplegia. Brain MRI performed on 02/16/2017 revealed evidence of chronic hemorrhagic infarct confined to the right thalamic region; however, current head CT scan revealed no evidence of hemorrhage, but it showed multiple infarcts confined to the right temporal and thalamic regions, basal ganglia, and chronic small vessel ischemic changes. PAST MEDICAL HISTORY: Significant for hypertension, hyperlipidemia, congestive heart failure, old stroke resulting in left hemiplegia, depressions, and anxiety. In the emergency note, the patient has history of deep venous thrombosis and he was placed on Coumadin. PAST SURGICAL HISTORY: Negative. FAMILY HISTORY: Noncontributory. SOCIAL HISTORY: The patient is a [employer] residency. Quit smoking 2 years ago. He quit alcohol drinking 2 years ago. CURRENT MEDICATIONS: Lipitor 20 mg at bedtime, warfarin 2 mg alternating with 2.5 mg every other day, nifedipine 60 mg daily, lisinopril 40 mg daily, sertraline 125 mg daily, potassium 20 mEq 3 times weekly, hydralazine 25 mg t.i.d., Depakote 750 mg b.i.d., aspirin 81 mg daily, carvedilol 12.5 mg daily, albuterol inhaler p.r.n., diclofenac ____ q. 12 hours, nicardipine for severe hypertension, fentanyl 50 mcg p.r.n. q.12 hours for pain, Zofran 4 mg q. 4h IV p.r.n. for nausea and vomiting. ALLERGIES: No known drug allergies. REVIEW OF SYSTEMS: A 10-point review of system was performed and consistent with left hemiplegia. Otherwise, as mentioned above in history of present illness. PHYSICAL EXAMINATION: GENERAL: Moderately obese white -Nigerian male, not in acute distress. VITAL SIGNS: Blood pressure 157/94, respiratory rate 10, pulse is 71 regular, oxygen saturation 98% on room air, and temperature 98.5. HEENT: Normocephalic, atraumatic, otherwise unremarkable. NECK: Supple. Negative for carotid bruit, lymphadenopathy, JVD or thyromegaly. LUNGS: Clear to A and P. CARDIOVASCULAR: Regular rate and rhythm, normal S1, S2. There is no S3, S4 or murmur. ABDOMEN: Soft. Bowel sounds positive. EXTREMITIES: Negative for cyanosis or clubbing. Probably positive for trace edema. NEUROLOGICAL EXAM: 1. Mental Status: The patient is alert and oriented x 2. Speech is fluent. There is no language dysfunction. Memory, judgment, and abstract thinking are fair. The patient denies hallucination or delusion. 2. Cranial Nerves: Visual rashid are full. The pupils are reactive to light and accommodation. The extraocular movements are intact. There is no nystagmus. There is no facial motor or sensory deficit. Hearing is intact bilaterally. The palate is elevated symmetrically. Sternocleidomastoid muscles are powerful bilaterally. The patient shrugs his shoulders symmetrically and protrudes his tongue in the midline without fasciculation or atrophy. 3. Motor Examination: No focal muscle bulk was seen. The tone is normal. The strength is 3/5 over the left upper and lower extremities due to hemiplegia. The strength was 4/5 throughout. Sensory examination revealed diminished pinprick and light touch senses over the left upper and lower extremities. Deep tendon reflexes were symmetric and hypoactive with absent Achilles responses. Gait not tested. DIAGNOSTIC DATA: Nonenhanced CT scan revealed no acute intracranial process, but an old infarct to the thalamic and basal ganglia along with encephalomalacia of the medial right temporal lobe along with chronic small vessel ischemic changes. Chest x-ray revealed no evidence of acute infiltrate. LABORATORY DATA: CBC revealed white blood cells of 5.3 thousand, hemoglobin 12.8, hematocrit 38.5, platelet count 116,000. Chemistry revealed sodium of 140, potassium 4, chloride 103, CO2 of 27, BUN 13, creatinine 1, glucose 80, and calcium 8.7. PT is 24.4 and INR 2.4. Urinalysis is negative for urinary tract infections and urine drug screen is negative with normal valproic acid at 58. IMPRESSION: 1. Acute mental status changes, etiology, rule out seizure versus transient ischemic attack. 2. Old right thalamic and temporal stroke resulted in left hemiplegia. 3. Multiple medical problems include severe hypertensions, hyperlipidemia, depressions, and anxiety. RECOMMENDATIONS: 1. Continue with current management initiated by Dr. Peters. 2. EEG. M Silvana MONTOYA MD DR: DAWNA/rose JOB#: [id number] / [id number]
[2017-03-24] VITALS (20 sets, daily range): BP systolic 103–170; BP diastolic 66–103
[2017-03-24 06:02] LABS: BASO # 0.1 x10^3/uL (0.0-0.2); BASO % 1 % (0-3); EOS # 0.3 x10^3/uL (0.0-0.7); EOS % 4 % (0-3); HEMATOCRIT 36.8 % (39.0-53.0); HEMOGLOBIN 12.3 g/dL (13.0-17.5); LYMPH % 44 % (24-48); MEAN CORPUSCULAR HEMOGLOBIN 30 pg (25-35); MEAN CORPUSCULAR HGB CONC 33 g/dL (31-37); MEAN CORPUSCULAR VOLUME 90 fL (79-100); MONO # 0.7 x10^3/uL (0.0-1.1); MONO % 10 % (0-9); NEUT # 2.8 x10^3uL (1.8-7.7); NEUT % 41 % (31-73); PLATELET COUNT 105 x10^3/uL (140-400); RED CELL DISTRIBUTION WIDTH 14.5 % (11.5-14.5); WHITE BLOOD COUNT 6.8 x10^3/uL (4.0-11.0)
[2017-03-24 06:09] LABS: CALCIUM 8.6 mg/dL (8.5-10.1); CREATININE 1.2 mg/dL (0.7-1.3); GFR 73.1; POTASSIUM 3.8 mmol/L (3.5-5.1)
[2017-03-24 06:40] LABS: HYPOCHROMIA SLIGHT; PLT ESTIMATE DECREASED (ADEQUATE); POLYCHROMASIA SLIGHT; SPHEROCYTES OCC
[2017-03-24 06:41] LABS: MICROCYTOSIS MOD; SCHISTOCYTES OCC; TEAR DROP CELLS OCC
[2017-03-24] MEDS: LISINOPRIL 20 MG TABLET PO SCH ×2 (08:00→08:32)
[2017-03-24] MEDS: CARVEDILOL 12.5 MG TABLET PO SCH ×2 (08:31→17:28)
[2017-03-24] MEDS: DIVALPROEX 125 MG CAP.SPRINK PO SCH ×2 (08:31→19:52)
[2017-03-24] MEDS: PROPYLENE GLYCOL OU PRN (08:32)
[2017-03-24] MEDS: hydrALAZINE 25 MG TABLET PO SCH ×4 (08:32→19:53)
[2017-03-24] MEDS: ASPIRIN ENTERIC COATED 81 MG TABLET.DR. PO SCH (08:32)
[2017-03-24] MEDS: SERTRALINE 50 MG TABLET. PO SCH (08:32)
[2017-03-24] MEDS: SODIUM CHLORIDE 0.65% NASAL SPRAY 45ML BOTTLE. NS SCH (08:32)
[2017-03-24] MEDS: PEG OU PRN (08:32)
[2017-03-24] MEDS: SENNOSIDES/DOCUSATE 8.6/50MG TABLET. PO SCH ×2 (09:00→19:26)
[2017-03-24] MEDS ORDERED: SODIUM CHLORIDE 0.65% NASAL SPRAY 45ML BOTTLE. NS PRN (15:15)
[2017-03-24] MEDS ORDERED: WARFARIN 6 MG TABLET. PO ONE (16:00)
[2017-03-24] MEDS: ATORVASTATIN CALCIUM 20 MG TABLET PO SCH (19:53)
[2017-03-25] VITALS (9 sets, daily range): BP systolic 122–173; BP diastolic 68–92
--- NOTE | 2017-03-25 00:28 | PN ---
DATE: 03/24/2017 SUBJECTIVE: A 66-year-old male with the following problems, 1. Acute encephalopathy, which has resolved. EEG is pending. 2. Long-term use of anticoagulants. 3. Hypertension, off Cardene drip now, blood pressure is good. 4. CVA with left hemiplegia and confusion, the patient back to baseline, remains on Coumadin. 5. Anxiety. 6. Thrombocytopenia, questionable etiology. 7. Deep venous thrombosis prophylaxis. NARRATIVE: The patient is doing well this morning. EEG is pending, he did have it today. He has been sitting up in the chair. He has had some elevations of his blood pressure, it is around 110/70 now. PHYSICAL EXAMINATION: VITAL SIGNS: Blood pressure 110/70, pulse 68, respirations 16, temperature 97.6, pulse ox 98% on room air. GENERAL: The patient is sitting in the chair. He is a little bit sleepy. He is easily arousable. He said he was fine. He has left hemiplegia and left facial droop. LUNGS: Clear. CARDIOVASCULAR: Regular rhythm and rate. ABDOMEN: Soft and nontender. EXTREMITIES: Without edema. LABORATORY DATA: Hemoglobin 12.3, hematocrit 36.8 with 105,000 platelets. Chemistry is normal. INR was 1.7; yesterday, it was 2.4. PLAN: Await the results of the EEG, pharmacy dosing the Coumadin. The patient is essentially almost back to baseline. We will most likely discharge tomorrow [facility] to [facility]. DANNY YBARRA DO DR: WILDER/rose JOB#: [id number] / [id number]
[2017-03-25] MEDS ORDERED: WARF5TAB7 PO (08:21)
[2017-03-25] MEDS: SENNOSIDES/DOCUSATE 8.6/50MG TABLET. PO SCH (08:23)
--- NOTE | 2017-03-25 19:13 | DS ---
DATE OF DISCHARGE: 03/25/2017 DISCHARGE DIAGNOSES: 1. Acute encephalopathy, which has resolved. EEG did not show any new findings. 2. Long-term use of anticoagulants. 3. Hypertension. 4. Cerebrovascular accident with left hemiplegia. 5. Neurocognitive impairment. 6. Anxiety. 7. Thrombocytopenia, questionable etiology. 8. DVT prophylaxis. HOSPITAL COURSE: A 66-year-old male who was admitted by Dr. Joe Peters where he was brought from the custodial with an episode of being unresponsive, which was the third episode in the last 2-3 months. The etiology is uncertain and the patient was back to his baseline. During his hospitalization, he was seen in consultation by Dr. Davis and had an EEG done, which did not show any new type findings or seizure activity. His INR was monitored during hospitalization and dose adjusted. Discharge blood pressure is 133/69, pulse 58, respirations 14, pulse ox 95% on room air. DISPOSITION: Back to the custodial MEDICATIONS: See MRAD. DISCHARGE INSTRUCTIONS: We will need to have his INR monitored and his CBC as well. DANNY YBARRA DO DR: WILDER/rose JOB#: [id number] / [id number]
--- NOTE | 2017-03-26 00:55 | PN ---
DATE: 03/24/2017 SUBJECTIVE: The patient denies any new medical or neurological complaints. He has not had any seizure-like activities. OBJECTIVE: GENERAL: Well-developed, well nourished -[place] male, not in acute distress. VITAL SIGNS: Blood pressure 162/93, respiratory rate 18, pulse is 74 and regular, oxygen saturation is 96% on room air, and temperature 97.6. HEENT: Normocephalic, atraumatic, otherwise unremarkable. NECK: Supple. Negative for carotid bruit, lymphadenopathy or thyromegaly. LUNGS: Clear to A and P. CARDIOVASCULAR: Regular rate and rhythm, normal S1, S2. ABDOMEN: Soft. Bowel sounds positive. EXTREMITIES: Negative for cyanosis, clubbing or pitting edema. NEUROLOGICAL EXAM: Mental status, the patient is alert and oriented x 3. Speech is fluent. There is no language dysfunction. Memory, judgment, and abstract thinkings are fair. The patient denies hallucination or delusion. Cranial nerves are grossly intact. Motor examination, no focal muscle bulk was seen. The tone is normal. The patient had left hemiplegia. The strength is 3/5 in the left upper and lower extremities compared to 5/5 in the right upper and lower extremities. Sensory examination revealed diminished pinprick and light touch senses over the left upper and lower extremities. Deep tendon reflexes were symmetric and hypoactive with absent Achilles responses. Gait not tested as the patient has left hemiplegia. DIAGNOSTIC DATA: The EEG obtained with the patient in the drowsy state characterized by slowing of the posterior dominant rhythm at 6 cycles per second with an amplitude of 25-35 microvolts. It was bilaterally symmetric without attenuation with eye opening. The background shows diffuse slowing of theta activities at frequency of 5-6 cycles per second intermixed with delta activities at frequency of 3 cycles per second. The patient achieved stage II sleep characterized by a person with generalized slowing of theta activities. Photic stimulation produced no driving responses and hyperventilation was not performed. LABORATORY DATA: CBC revealed white cells of 6.8 thousand, hemoglobin 12.3, hematocrit 36.8, and platelet count 105,000. Chemistry revealed sodium of 140, potassium of 3.8, chloride 104, CO2 27, BUN 18, creatinine 1.2, glucose 90, calcium is 8.6. IMPRESSION: 1. Acute mental status. 2. Recurrent spells of encephalopathy, rule out seizure versus transient ischemic attack. 3. Abnormal waking and drowsy EEG because of slowing of the posterior dominant rhythm and diffuse slowing of the background activities. These findings are suggestive of diffuse cerebral dysfunction. No epileptiform activities were seen. The lack of epileptiform discharge does not always rule out seizure; therefore, clinical correlation is advised. 4. Multiple medical problems include hypertension, hyperlipidemia, depression, and anxiety. RECOMMENDATIONS: Continue with current management initiated by Dr. Peters and Dr. Luu. M Silvana MONTOYA MD DR: DAWNA/rose JOB#: [id number] / [id number]
--- NOTE | 2017-03-26 01:31 | PN ---
DATE: 03/25/2017 SUBJECTIVE: The patient denies any new medical or neurological complaints; however, he has been drowsy and lethargic since this morning. OBJECTIVE: GENERAL: Well-developed, well nourished -Al[place]ian male, not in acute distress. VITAL SIGNS: Blood pressure 159/92, respiratory rate 14, pulse is 62 and regular, afebrile, and oxygen saturation 95% on room air. HEENT: Normocephalic, atraumatic, otherwise unremarkable. NECK: Supple. Negative for carotid bruit, lymphadenopathy or thyromegaly. LUNGS: Clear to A and P. CARDIOVASCULAR: Regular rate and rhythm, normal S1, S2. ABDOMEN: Soft. Bowel sounds positive. EXTREMITIES: Negative for cyanosis, clubbing or pitting edema. NEUROLOGICAL EXAM: Mental Status: The patient is lethargic, but answering question by shaking his head. He opens eyes spontaneously. The pupils are equal and reactive to light. No facial motor or sensory deficit. Hearing is intact. There is no facial motor or sensory deficit. Motor examination consistent with left hemiplegia. Sensory examination revealed diminished pinprick and light touch senses over the left upper and lower extremities. Deep tendon reflexes are symmetric and hypoactive. IMPRESSION: 1. Recurrent episode of encephalopathy. 2. Old stroke resulted in left hemiplegia. 3. Negative EEG for seizure activities. 4. Hypertension, hyperlipidemia, anxiety and depression. RECOMMENDATIONS: Continue with current management. M Silvana MONTOYA MD DR: DAWNA/rose JOB#: [id number] / [id number]
== END 2017-03-25 10:01 | disposition home or self-care (01) | DRG 71 ==
LOC: ER 17:10 → ICU 19:51
PROVIDERS: ADMIT Family Medicine; ATTEND Family Medicine
DX: G93.40 Encephalopathy, unspecified (principal); I69.354 Hemiplegia and hemiparesis following cerebral infarction affecting left non-dominant side; R47.01 Aphasia; G81.91 Hemiplegia, unspecified affecting right dominant side; R40.2430 Glasgow coma scale score 3-8, unspecified time; I11.0 Hypertensive heart disease with heart failure; G93.89 Other specified disorders of brain; I50.9 Heart failure, unspecified; F32.9 Major depressive disorder, single episode, unspecified; F02.80 Dementia in other diseases classified elsewhere, unspecified severity, without behavioral disturbance, psychotic disturbance, mood disturbance, and anxiety; G30.9 Alzheimer's disease, unspecified; E78.5 Hyperlipidemia, unspecified; I25.10 Atherosclerotic heart disease of native coronary artery without angina pectoris; E11.649 Type 2 diabetes mellitus with hypoglycemia without coma; F41.9 Anxiety disorder, unspecified; K59.00 Constipation, unspecified; D69.6 Thrombocytopenia, unspecified; Z86.718 Personal history of other venous thrombosis and embolism; Z79.01 Long term (current) use of anticoagulants; Z87.891 Personal history of nicotine dependence; Z86.73 Personal history of transient ischemic attack (TIA), and cerebral infarction without residual deficits
CPT/HCPCS: 36415; 51702; 70450; 71010; 80048; 80053; 80061; 80164; 81001; 82550; 82947; 83605; 83735; 83880; 84484; 85008; 85027; 85379; 85610; 85651; 85730; 86140; 87641; 93005; 95816; 96374; G0481; J3490; J7050; 99285-25

== ENCOUNTER 2018-03-26 13:26 | Inpatient (IN) | payer MEDICARE, OTHER ==
[~2018-03-26] VITALS: Ht 188 cm; Wt 102.2 kg
[~2018-03-26 13:26] MED LIST changes: +HYDR-2867 PO; +WARF-31 PO; -WARF5TAB7 PO
--- NOTE | 2018-03-26 14:42 | RAD ---
Exam: AP portable chest History: Shortness of breath, psych evaluation. Comparison: March 22, 2017. Findings: The heart and mediastinal structures are within normal limits for size. Lungs are without infiltrate. No pleural effusion or pneumothorax is identified. Aortic atherosclerosis is present. Impression: 1. No acute cardiopulmonary process. Electronically signed by: Fan Shelley MD (03/26/2018 2:39 PM) [place] [id number]
[2018-03-26 15:10] LABS: BASO % 1 % (0-3); EOS # 0.1 x10^3/uL (0.0-0.7); EOS % 3 % (0-3); HEMATOCRIT 45.6 % (39.0-53.0); LYMPH # 2.2 x10^3/uL (1.0-4.8); LYMPH % 41 % (24-48); MEAN CORPUSCULAR HEMOGLOBIN 31 pg (25-35); MEAN CORPUSCULAR HGB CONC 33 g/dL (31-37); MEAN CORPUSCULAR VOLUME 93 fL (79-100); MONO # 0.5 x10^3/uL (0.0-1.1); MONO % 10 % (0-9); NEUT # 2.5 x10^3uL (1.8-7.7); NEUT % 47 % (31-73); PLATELET COUNT 142 x10^3/uL (140-400); RED BLOOD COUNT 4.89 x10^6/uL (4.30-5.70); RED CELL DISTRIBUTION WIDTH 13.8 % (11.5-14.5); WHITE BLOOD COUNT 5.3 x10^3/uL (4.0-11.0)
--- NOTE | 2018-03-26 15:14 | EKG ---
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
[2018-03-26 15:24] LABS: ALBUMIN 3.3 g/dL (3.4-5.0); ALBUMIN/GLOBULIN RATIO 0.7 (1.0-1.7); CALCIUM 9.1 mg/dL (8.5-10.1); CREATININE 1.6 mg/dL (0.7-1.3); GFR 52.3; MAGNESIUM 2.3 mg/dL (1.8-2.4); POTASSIUM 4.4 mmol/L (3.5-5.1); TOTAL BILIRUBIN 0.4 mg/dL (0.2-1.0); TOTAL PROTEIN 7.8 g/dL (6.4-8.2)
[2018-03-26] MEDS ORDERED: IV NORMAL SALINE 1,000ML 1,000 ML IV ONE ×2 (15:30→20:00)
[2018-03-26] MEDS ORDERED: FOLI0.8T33 PO (16:10)
[2018-03-26] MEDS ORDERED: WARF4TAB64 PO (16:10)
[2018-03-26] MEDS ORDERED: CYAN10005 PO (16:10)
[2018-03-26] MEDS ORDERED: RIVA1PAT23 TD (16:10)
[2018-03-26] MEDS ORDERED: QUET25TA5 PO (16:10)
[2018-03-26] MEDS ORDERED: LISI40TA PO (16:10)
[2018-03-26] MEDS ORDERED: SACC250C8 PO (16:10)
[2018-03-26] MEDS ORDERED: LORA1TAB PO (16:10)
[2018-03-26] MEDS ORDERED: CHOL500050 PO (16:10)
[2018-03-26] MEDS ORDERED: AMLO5TAB4 PO (16:10)
[2018-03-26] MEDS ORDERED: DIVA500T9 PO (16:10)
[2018-03-26] MEDS ORDERED: DIVA500T2 PO (16:10)
[2018-03-26] MEDS ORDERED: HYDR-2867 PO (16:10)
[2018-03-26] MEDS ORDERED: TRAZ50TA15 PO (16:10)
--- NOTE | 2018-03-26 16:25 | PHYS DOC ---
Past History Past Medical History: Anxiety, CHF, CVA, Depression, High Cholesterol, Hypertension, UTI Past Surgical History: No Surgical History, Tonsillectomy Alcohol Use: None Drug Use: None Adult General Chief Complaint Chief Complaint: PSYCH EVALUATION HPI HPI 67-year-old male presents for behavioral health evaluation and admission. The patient was stated to be combated and argumentative with a patient's and staff at his facility. The patient does not have any complaints. Review of Systems Review of Systems Constitutional: Denies fever or chills [] Eyes: Denies change in visual acuity, redness, or eye pain [] HENT: Denies nasal congestion or sore throat [] Respiratory: Denies cough or shortness of breath [] Cardiovascular: No additional information not addressed in HPI [] GI: Denies abdominal pain, nausea, vomiting, bloody stools or diarrhea [] : Denies dysuria or hematuria [] Musculoskeletal: Denies back pain or joint pain [] Integument: Denies rash or skin lesions [] Neurologic: Denies headache, focal weakness or sensory changes [] Endocrine: Denies polyuria or polydipsia [] All other systems were reviewed and found to be within normal limits, except as documented in this note. Current Medications Current Medications Current Medications Medications (Trade) Dose Ordered Sig/Romeo Start Time Stop Time Status Last Admin Dose Admin Sodium Chloride 1,000 ml @ 1,000 mls/hr 1X ONCE 03/26/18 15:30 03/26/18 16:29 03/26/18 15:15 1,000 MLS/HR Allergies Allergies Allergies Coded Allergies Type Severity Reaction Last Updated Verified No Known Drug Allergies 11/08/15 No Physical Exam Physical Exam Constitutional: Well developed, well nourished, no acute distress, non-toxic appearance. [] HENT: Normocephalic, atraumatic, bilateral external ears normal, oropharynx moist, no oral exudates, nose normal. [] Eyes: PERRLA, EOMI, conjunctiva normal, no discharge. [] Neck: Normal range of motion, no tenderness, supple, no stridor. [] Cardiovascular:Heart rate regular rhythm, no murmur [] Lungs & Thorax: Bilateral breath sounds clear to auscultation [] Abdomen: Bowel sounds normal, soft, no tenderness, no masses, no pulsatile masses. [] Skin: Warm, dry, no erythema, no rash. [] Back: No tenderness, no CVA tenderness. [] Extremities: No tenderness, no cyanosis, no clubbing, ROM intact, no edema. [] Neurologic: Alert and oriented X 3, normal motor function, normal sensory function, no focal deficits noted. [] Psychologic: Affect normal, judgement normal, mood normal. [] Current Patient Data Lab Results Laboratory Tests Test 03/26/18 14:48 White Blood Count 5.3 x10^3/uL (4.0-11.0) Red Blood Count 4.89 x10^6/uL (4.30-5.70) Hemoglobin 15.0 g/dL (13.0-17.5) Hematocrit 45.6 % (39.0-53.0) Mean Corpuscular Volume 93 fL (79-100) Mean Corpuscular Hemoglobin 31 pg (25-35) Mean Corpuscular Hemoglobin Concent 33 g/dL (31-37) Red Cell Distribution Width 13.8 % (11.5-14.5) Platelet Count 142 x10^3/uL (140-400) Neutrophils (%) (Auto) 47 % (31-73) Lymphocytes (%) (Auto) 41 % (24-48) Monocytes (%) (Auto) 10 % (0-9) H Eosinophils (%) (Auto) 3 % (0-3) Basophils (%) (Auto) 1 % (0-3) Neutrophils # (Auto) 2.5 x10^3uL (1.8-7.7) Lymphocytes # (Auto) 2.2 x10^3/uL (1.0-4.8) Monocytes # (Auto) 0.5 x10^3/uL (0.0-1.1) Eosinophils # (Auto) 0.1 x10^3/uL (0.0-0.7) Basophils # (Auto) 0.0 x10^3/uL (0.0-0.2) Sodium Level 142 mmol/L (136-145) Potassium Level 4.4 mmol/L (3.5-5.1) Chloride Level 106 mmol/L (98-107) Carbon Dioxide Level 23 mmol/L (21-32) Anion Gap 13 (6-14) Blood Urea Nitrogen 35 mg/dL (8-26) H Creatinine 1.6 mg/dL (0.7-1.3) H Estimated GFR (Cockcroft-Gault) 52.3 BUN/Creatinine Ratio 22 (6-20) H Glucose Level 117 mg/dL (70-99) H Calcium Level 9.1 mg/dL (8.5-10.1) Magnesium Level 2.3 mg/dL (1.8-2.4) Total Bilirubin 0.4 mg/dL (0.2-1.0) Aspartate Amino Transferase (AST) 30 U/L (15-37) Alanine Aminotransferase (ALT) 28 U/L (16-63) Alkaline Phosphatase 63 U/L (46-116) Troponin I Quantitative < 0.017 ng/mL (0-0.055) Total Protein 7.8 g/dL (6.4-8.2) Albumin 3.3 g/dL (3.4-5.0) L Albumin/Globulin Ratio 0.7 (1.0-1.7) L EKG EKG irregular rhythm, rate 122, no ST elevations or depressions.[] Radiology/Procedures Radiology/Procedures Exam: AP portable chest History: Shortness of breath, psych evaluation. Comparison: March 22, 2017. Findings: The heart and mediastinal structures are within normal limits for size. Lungs are without infiltrate. No pleural effusion or pneumothorax is identified. Aortic atherosclerosis is present. Impression: 1. No acute cardiopulmonary process. Electronically signed by: Fan Shelley MD (03/26/2018 2:39 PM) [place] [id number] Course & Med Decision Making Course & Med Decision Making Pertinent Labs and Imaging studies reviewed. (See chart for details) Patient's labs are significant for elevated creatinine 1.6. Review of his chart shows a baseline 1.3. I have given the patient later normal saline. His urine is pending. His heart rate is improving, but continues to be around 110. I will sign out the patient to Dr. Hatch for final disposition [] Dragon Disclaimer Dragon Disclaimer This electronic medical record was generated, in whole or in part, using a voice recognition dictation system. Departure Departure: Referrals: CELI GUILLERMO MD (PCP) DOMENICA MASSEY DO Mar 26, 2018 16:25
[2018-03-26] MEDS ORDERED: METOPROLOL TARTRATE 5 MG/5 ML VIAL. IV ONE (20:00)
[2018-03-26 21:08] LABS: AMPHETAMINE/METHAMPHETAMINE NEG (NEG); BARBITURATES NEG (NEG); BENZODIAZEPINES NEG (NEG); CANNABINOIDS NEG (NEG); COCAINE NEG (NEG); METHADONE NEG (NEG); OPIATES NEG (NEG); PHENCYCLIDINE NEG (NEG)
[2018-03-26] MEDS ORDERED: VERAPAMIL 5 MG/2 ML VIAL. IV ONE ×2 (21:15→22:30)
[2018-03-26 21:16] LABS: BILIRUBIN,URINE NEG (NEG); CLARITY,URINE HAZY; COLOR,URINE YELLOW; GLUCOSE,URINE NEG (NEG); NITRITE,URINE NEG (NEG); UROBILINOGEN,URINE 0.2 mg/dL (0.2 mg/dL)
[2018-03-26 21:17] LABS: BACTERIA,URINE 0 /HPF (0-FEW); SQUAMOUS EPITHELIAL CELL,UR OCC /LPF
[2018-03-26] MEDS ORDERED: ACETAMINOPHEN 325 MG TABLET PO PRN (21:45)
[2018-03-26] MEDS ORDERED: VERAPAMIL 5 MG/2 ML VIAL. IV PRN ×2 (21:45→22:30)
[2018-03-26] MEDS ORDERED: ONDANSETRON ODT 4 MG TAB.RAPDIS PO PRN (22:00)
[2018-03-26 22:03] LABS: CALCIUM 8.7 mg/dL (8.5-10.1); CREATININE 1.4 mg/dL (0.7-1.3); POTASSIUM 4.2 mmol/L (3.5-5.1)
[2018-03-26] MEDS ORDERED: NORMAL SALINE IV ONE ×2 (22:30→22:35)
[2018-03-26] MEDS ORDERED: VERAPAMIL IV ONE ×2 (22:30→22:35)
--- NOTE | 2018-03-26 23:26 | EKG ---
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
[2018-03-27] VITALS (12 sets, daily range): BP systolic 113–168; BP diastolic 43–111
[2018-03-27 03:31] LABS: BASO # 0.1 x10^3/uL (0.0-0.2); BASO % 1 % (0-3); EOS # 0.2 x10^3/uL (0.0-0.7); EOS % 2 % (0-3); HEMATOCRIT 41.7 % (39.0-53.0); HEMOGLOBIN 14.1 g/dL (13.0-17.5); LYMPH # 1.9 x10^3/uL (1.0-4.8); LYMPH % 26 % (24-48); MEAN CORPUSCULAR HEMOGLOBIN 31 pg (25-35); MEAN CORPUSCULAR HGB CONC 34 g/dL (31-37); MEAN CORPUSCULAR VOLUME 92 fL (79-100); MONO # 0.8 x10^3/uL (0.0-1.1); MONO % 11 % (0-9); NEUT # 4.3 x10^3uL (1.8-7.7); NEUT % 60 % (31-73); PLATELET COUNT 128 x10^3/uL (140-400); RED BLOOD COUNT 4.56 x10^6/uL (4.30-5.70); RED CELL DISTRIBUTION WIDTH 13.5 % (11.5-14.5); WHITE BLOOD COUNT 7.2 x10^3/uL (4.0-11.0)
[2018-03-27 03:33] LABS: CALCIUM 8.7 mg/dL (8.5-10.1); CREATININE 1.4 mg/dL (0.7-1.3)
[2018-03-27] MEDS ORDERED: CARVEDILOL 12.5 MG TABLET PO SCH (08:00)
[2018-03-27] MEDS ORDERED: MEMANTINE 5 MG TABLET. PO SCH (09:00)
[2018-03-27] MEDS ORDERED: amLODIPine BESYLATE 5 MG TABLET PO SCH (09:00)
[2018-03-27] MEDS ORDERED: ASPIRIN 81 MG TAB.CHEW PO SCH (09:00)
--- NOTE | 2018-03-27 11:11 | EKG ---
[address] [address] Test Date: 2018-03-27 Test Time: 11:07:24 Pat Name: HUY TEAGUE Department: Room: 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
--- NOTE | 2018-03-27 14:08 | HP ---
ADMIT DATE: 03/26/2018 HISTORY OF PRESENT ILLNESS: The patient is a 67-year-old -Citizen Of [place] male patient, a resident at [facility], who apparently was brought to the Emergency Room, apparently has been very combative, argumentative with other patient and staff in that facility. By the time he arrived to the Emergency Room, he denied any complaint. However, while he was evaluated in the Emergency Room, he was found to be in atrial fibrillation with rapid ventricular response. He was also noted to have slightly elevated creatinine from his baseline and a decision was made to admit him to ICU, was started apparently on a Cardizem drip and to consult the cardiology team to assist with the management of his atrial fibrillation with rapid ventricular response. The patient himself is very demented and does not really give any useful information. PAST MEDICAL HISTORY: Significant for hypertension, hyperlipidemia, congestive heart failure, right-sided CVA with left side hemiplegia, muscle weakness, and anxiety. PAST SURGICAL HISTORY: Unremarkable. FAMILY HISTORY: Unremarkable. SOCIAL HISTORY: He is a resident at [facility]. He is apparently from his , according to him she lives in [place] and has 3 sons, the youngest is 14 years old. He is an ex-smoker and ex-alcohol drinker, quit 3 years ago. ALLERGIES: He has no known drug allergies. MEDICATIONS: He is currently on following medications: He is on Exelon 9.5 mg per 24 hour transdermal patch topically once a day, albuterol sulfate for ProAir 1 puff every 6 hours as needed, baclofen 10 mg at bedtime. He is on baclofen 5 mg daily, Coumadin 4 mg daily, atorvastatin calcium 20 mg at bedtime, hydralazine 10 mg 3 times a day, carvedilol 12.5 mg twice a day, amlodipine 5 mg daily, nifedipine XR for Procardia 60 mg daily, lisinopril 20 mg at bedtime, aspirin 81 mg , diclofenac for Voltaren gel 100 gram applied 1 gram topically twice a day, Tylenol 650 mg every 4 hours as needed for pain or fever, divalproex sodium for Depakote 750 mg twice a day and divalproex sodium 250 mg at bedtime, sertraline 125 mg daily, trazodone 25 mg at bedtime, quetiapine fumarate 25 mg 3 times a day, lorazepam 1 mg every 4 hours, buspirone 10 mg 4 times a day, Namenda 10 mg twice a day. He is on potassium chloride 20 mEq in 15 mL liquid 3 times a week, Systane 2 drops to both eyes 4 times a day, saline nasal spray 3 times a day, Mylanta 15 mL every 6 hours, Imodium 2 mg every 2 hours as needed for diarrhea, bisacodyl 10 mg per rectum daily p.r.n. for constipation, milk of magnesia 30 mL p.o. daily p.r.n. for constipation, Senna-S 1 tablet twice a day, saccharomyces boulardii 250 mg daily, vitamin B complex once a day, cholecalciferol, vitamin D 2000 international units once a day. PHYSICAL EXAMINATION: GENERAL: On arrival to the Emergency Room, the patient looked pale, but no jaundice or cyanosis. No lymphadenopathy, no thyromegaly. No jugular venous distension. Did have left lower extremity more swollen than the right one. VITAL SIGNS: His heart rate was 119, irregularly irregular. His blood pressure was 183/97. Temperature was 97.6, respiratory rate was 16, and oxygen saturation was 96% on room air. HEAD, EYES, EAR, NOSE, AND THROAT: Showed normocephalic, atraumatic. NECK: Supple. HEART: Showed normal first and second sounds. No gallop, rub, or murmur. CHEST: Clear to auscultation. No crepitation or rhonchi. ABDOMEN: Distended, soft, nontender. NEUROLOGIC: He is awake, alert, confused. He has a left-sided hemiplegia. He has an indwelling Morales catheter. LABORATORY DATA: On admission showed a white cell count 5300, hemoglobin 15, hematocrit 45, MCV 93, and platelet count of 142,000 with normal manual differential. His chemistry showed a serum sodium 142, potassium 4.4, chloride 106, bicarbonate 23, anion gap of 13, BUN 35, creatinine 1.56. Estimated GFR was 52 mL per minute. His glucose was 117. Calcium was 9.1, magnesium 2.3. Total bilirubin, AST, ALT, alkaline phosphatase were normal. Total protein 7.8, albumin 3.3. His prothrombin time was 34.2, INR of 3.4, aPTT was 38. Urinalysis was essentially unremarkable and toxic screen was negative. His chest x-ray showed the heart and mediastinal structures are within normal limits for size, lungs are without infiltrate, no pleural effusion or pneumothorax identified, aortic atherosclerosis present. His EKG showed that he was in irregularly irregular with a heart rate of [address] segment elevation or depression. ASSESSMENT AND PLAN: The patient was admitted with a new onset of atrial fibrillation with rapid ventricular response. He was also admitted with acute on chronic kidney injury as his creatinine was 1.6 with a baseline of 1.3. He was started on a verapamil drip and was admitted to ICU for close monitoring. INDER MIRELES MD DR: ANTOINETTE/rose JOB#: [id number] / [id number]
[2018-03-27] MEDS ORDERED: ALBUTEROL SULFATE 8GM INHALER. INH PRN (15:45)
[2018-03-27] MEDS ORDERED: DICLOFENAC SODIUM 1% TOPICAL GEL 100GM TUBE. TP PRN (15:45)
[2018-03-27] MEDS ORDERED: MAG HYDROX/AL HYDROX/SIMETH 30 ML ORAL.SUSP PO PRN (15:45)
[2018-03-27] MEDS ORDERED: NON FORMULARY ITEM (Warfarin Sodium 4 MG) PO SCH (16:00)
[2018-03-27] MEDS ORDERED: LORazepam 1 MG TABLET PO PRN (16:15)
[2018-03-27] MEDS ORDERED: ACETAMINOPHEN 500 MG TABLET PO PRN (16:15)
[2018-03-27] MEDS ORDERED: BISACODYL 10 MG SUPP.RECT PR PRN (16:15)
[2018-03-27] MEDS ORDERED: SODIUM CHLORIDE 0.65% NASAL SPRAY 45ML BOTTLE. NS PRN (16:30)
[2018-03-27] MEDS ORDERED: MAGNESIUM HYDROXIDE 2,400 MG/30 ML ORAL.SUSP. PO PRN (16:30)
[2018-03-27] MEDS ORDERED: traZODone 50 MG TABLET. PO SCH ×3 (16:30→21:00)
[2018-03-27] MEDS ORDERED: LOPERAMIDE 2 MG CAPSULE PO PRN (16:30)
[2018-03-27] MEDS ORDERED: POLYVINYL ALCOHOL 1.4% OPHTH SOLUTION 15ML BOTTLE. OU PRN (16:30)
[2018-03-27] MEDS ORDERED: ALBUTEROL SULFATE 2.5 MG/3 ML NEBU. NEB PRN (16:45)
[2018-03-27] MEDS: CARVEDILOL 12.5 MG TABLET PO SCH (16:58)
[2018-03-27] MEDS: busPIRone 10 MG TABLET. PO SCH ×2 (16:58→20:50)
--- NOTE | 2018-03-27 18:17 | PDOC ---
Exam Note: [place] Note: Please also refer to the separate dictated note~for this date of service dictated separately.~Patient seen individually. Discussed the patient with Nursing staff reviewed the chart.~Reviewed interim history and current functioning. Reviewed vital signs,~Labs/ Radiology~and current medications noted below. Continue current treatment with the changes noted in the dictated addendum note Assessment: Vital Signs: Vital Signs Date Time Temp Pulse Resp B/P (MAP) Pulse Ox O2 Delivery O2 Flow Rate FiO2 03/27/18 17:56 89 03/27/18 16:58 130/82 03/27/18 05:31 12 97 Room Air 03/27/18 00:11 98.2 I&O Intake and Output 03/27/18 07:00 Intake Total 2000 ml Output Total 450 ml Balance 1550 ml IV Total 2000 ml Output Urine Total 450 ml # Bowel Movements 1 Labs: Laboratory Tests Test 03/26/18 20:05 03/26/18 20:45 03/26/18 21:05 03/27/18 01:05 Prothrombin Time 31.5 SEC (9.4-11.4) H Prothrombin Time INR 3.1 (0.9-1.1) H PTT 39 SEC (23-33) H Urine Collection Type Void Urine Color Yellow Urine Clarity Hazy Urine pH 7.0 Urine Specific [place] 1.020 Urine Protein Neg (NEG-TRACE) Urine Glucose (UA) Neg mg/dL (NEG) Urine Ketones (Stick) Trace mg/dL (NEG) Urine Blood Trace (NEG) Urine Nitrite Neg (NEG) Urine Bilirubin Neg (NEG) Urine Urobilinogen Dipstick 0.2 mg/dL (0.2 mg/dL) Urine Leukocyte Esterase Mod (NEG) Urine RBC 1-2 /HPF (0-2) Urine WBC 5-10 /HPF (0-4) Urine Squamous Epithelial Cells Occ /LPF Urine Bacteria 0 /HPF (0-FEW) Urine Opiates Screen Neg (NEG) Urine Methadone Screen Neg (NEG) Urine Barbiturates Neg (NEG) Urine Phencyclidine Screen Neg (NEG) Urine Amphetamine/Methamphetamine Neg (NEG) Urine Benzodiazepines Screen Neg (NEG) Urine Cocaine Screen Neg (NEG) Urine Cannabinoids Screen Neg (NEG) Urine Ethyl Alcohol (NEG) Sodium Level 142 mmol/L (136-145) 141 mmol/L (136-145) Potassium Level 4.2 mmol/L (3.5-5.1) 4.0 mmol/L (3.5-5.1) Chloride Level 106 mmol/L (98-107) 106 mmol/L (98-107) Carbon Dioxide Level 25 mmol/L (21-32) 22 mmol/L (21-32) Anion Gap 11 (6-14) 13 (6-14) Blood Urea Nitrogen 29 mg/dL (8-26) H 29 mg/dL (8-26) H Creatinine 1.4 mg/dL (0.7-1.3) H 1.4 mg/dL (0.7-1.3) H Estimated GFR (Cockcroft-Gault) 61.0 61.0 Glucose Level 98 mg/dL (70-99) 137 mg/dL (70-99) H Calcium Level 8.7 mg/dL (8.5-10.1) 8.7 mg/dL (8.5-10.1) White Blood Count 7.2 x10^3/uL (4.0-11.0) Red Blood Count 4.56 x10^6/uL (4.30-5.70) Hemoglobin 14.1 g/dL (13.0-17.5) Hematocrit 41.7 % (39.0-53.0) Mean Corpuscular Volume 92 fL (79-100) Mean Corpuscular Hemoglobin 31 pg (25-35) Mean Corpuscular Hemoglobin Concent 34 g/dL (31-37) Red Cell Distribution Width 13.5 % (11.5-14.5) Platelet Count 128 x10^3/uL (140-400) L Neutrophils (%) (Auto) 60 % (31-73) Lymphocytes (%) (Auto) 26 % (24-48) Monocytes (%) (Auto) 11 % (0-9) H Eosinophils (%) (Auto) 2 % (0-3) Basophils (%) (Auto) 1 % (0-3) Neutrophils # (Auto) 4.3 x10^3uL (1.8-7.7) Lymphocytes # (Auto) 1.9 x10^3/uL (1.0-4.8) Monocytes # (Auto) 0.8 x10^3/uL (0.0-1.1) Eosinophils # (Auto) 0.2 x10^3/uL (0.0-0.7) Basophils # (Auto) 0.1 x10^3/uL (0.0-0.2) Troponin I Quantitative < 0.017 ng/mL (0-0.055) Test 03/27/18 06:00 Prothrombin Time 34.2 SEC (9.4-11.4) H Prothrombin Time INR 3.4 (0.9-1.1) H PTT 38 SEC (23-33) H Current Medications: Meds: Current Medications Sodium Chloride 1,000 ml @ 1,000 mls/hr 1X ONCE IV Last administered on at 15:15; Start 03/26/18 at 15:30; Stop 03/26/18 at 16:29; Status DC Sodium Chloride 1,000 ml @ 1,000 mls/hr 1X ONCE IV Last administered on at 17:30; Start 03/26/18 at 20:00; Stop 03/26/18 at 20:59; Status DC Metoprolol Tartrate (Lopressor Vial) 5 mg 1X ONCE IV Last administered on at 20:15; Start 03/26/18 at 20:00; Stop 03/26/18 at 20:01; Status DC Verapamil HCl (Verapamil HCl) 5 mg 1X ONCE IV Last administered on 03/26/18at 21 :12; Start 03/26/18 at 21:15; Stop 03/26/18 at 21:16; Status DC Ondansetron HCl (Zofran Odt) 4 mg PRN Q4HRS PRN PO NAUSEA/VOMITING; Start at 22:00 Acetaminophen (Tylenol) 650 mg PRN Q4HRS PRN PO FEVER; Start 03/26/18 at 21:45; Stop 03/27/18 at 16:06; Status DC Verapamil HCl (Verapamil HCl) 10 mg PRN Q8HRS PRN IV HR > 120; Start 03/26/18 at 21:45; Stop 03/26/18 at 22:21; Status DC Aspirin (Children'S Aspirin) 81 mg DAILY PO Last administered on 03/27/18at 09:45 ; Start 03/27/18 at 09:00; Stop 03/27/18 at 16:06; Status DC Carvedilol (Coreg) 12.5 mg BIDWMEALS PO Last administered on 03/27/18at 09:45; Start 03/27/18 at 08:00; Stop 03/27/18 at 16:40; Status DC Divalproex Sodium (Depakote Er) 250 mg QHS PO ; Start 03/27/18 at 21:00; Stop 03/27/18 at 21:00; Status DC Memantine (Namenda) 5 mg BID PO Last administered on 03/27/18at 09:46; Start 03/27 at 09:00; Stop 03/27/18 at 16:40; Status DC Amlodipine Besylate (Norvasc) 5 mg DAILY PO Last administered on 03/27/18at 09:45 ; Start 03/27/18 at 09:00; Stop 03/27/18 at 16:06; Status DC Trazodone HCl (Desyrel) 25 mg QHS PO ; Start 03/27/18 at 21:00; Stop 03/27/18 at 21:00; Status DC Verapamil HCl (Verapamil HCl) 2.5 mg 1X ONCE IV Last administered on 03/26/18at 22:37; Start 03/26/18 at 22:30; Stop 03/26/18 at 22:33; Status DC Olanzapine (ZyPREXA ZYDIS) 5 mg 1X ONCE PO Last administered on 03/26/18at 22:41 ; Start 03/26/18 at 22:30; Stop 03/26/18 at 22:34; Status DC Verapamil HCl 50 mg/Sodium Chloride 120 ml @ 5 mls/hr 1X ONCE IV ; Start at 22:30; Stop 03/26/18 at 22:35; Status DC Verapamil HCl (Verapamil HCl) 2.5 mg PRN Q15MIN PRN IV TACHYCARDIA; Start at 22:30 Verapamil HCl 50 mg/Sodium Chloride 100 ml @ 5 mls/hr 1X ONCE IV Last administered on 03/27/18at 00:23; Start 03/26/18 at 22:35; Stop 03/27/18 at 18:29 Warfarin Sodium (Coumadin Per Physician) 1 each PRN DAILY PRN MC SEE COMMENTS; Start 03/27/18 at 08:00 Albuterol Sulfate (Ventolin Hfa) 1 puff PRN Q6HRS PRN INH SHORTNESS OF BREATH; Start 03/27/18 at 15:45; Status UNV Atorvastatin Calcium (Lipitor) 20 mg QHS PO ; Start 03/27/18 at 21:00 Vitamin D (Vitamin D3) 50,000 unit WEEKLY PO ; Start 04/03/18 at 09:00 Cyanocobalamin (Vitamin B-12) 1,000 mcg DAILY PO ; Start 03/28/18 at 09:00 Diclofenac Sodium (Voltaren) 1 evan PRN Q12HR PRN TP PAIN; Start 03/27/18 at 15: 45 Lorazepam (Ativan) 1 mg PRN Q4HRS PRN PO ANXIETY / AGITATION Last administered on 03/27/18at 17:09; Start 03/27/18 at 16:15 Al Hydroxide/Mg Hydroxide (Mylanta Plus Xs) 15 ml PRN Q6HRS PRN PO DYSPEPSIA; Start 03/27/18 at 15:45 Multivitamins/ Calcium (Thera-M Plus) 1 tab DAILY PO ; Start 03/28/18 at 09:00 Lactobacillus Rhamnosus (Culturelle) 1 cap BID PO ; Start 03/27/18 at 21:00 Senna/Docusate Sodium (Senna Plus) 1 tab BID PO ; Start 03/27/18 at 21:00 Sertraline HCl (Zoloft) 125 mg DAILY PO ; Start 03/28/18 at 09:00 Acetaminophen (Tylenol) 500 mg PRN Q4HRS PRN PO PAIN / TEMP; Start 03/27/18 at 16:15 Amlodipine Besylate (Norvasc) 5 mg DAILY PO ; Start 03/28/18 at 09:00 Aspirin (Aspirin Enteric Coated) 81 mg DAILY PO ; Start 03/28/18 at 09:00 Baclofen (Lioresal) 5 mg DAILY PO ; Start 03/28/18 at 09:00 Baclofen (Lioresal) 10 mg QHS PO ; Start 03/27/18 at 21:00 Bisacodyl (Dulcolax Supp) 10 mg PRN DAILY PRN PA CONSTIPATION; Start 03/27/18 at 16:15 Buspirone HCl (Buspar) 10 mg QID PO Last administered on 03/27/18at 16:58; Start 03/27/18 at 17:00 Carvedilol (Coreg) 12.5 mg BIDWMEALS PO Last administered on 03/27/18at 16:58; Start 03/27/18 at 17:00 Divalproex Sodium (Depakote Sprinkles) 750 mg DAILY PO ; Start 03/28/18 at 09:00 Divalproex Sodium (Depakote Sprinkles) 1,000 mg QHS PO ; Start 03/27/18 at 21:00 Multivit/Ca Carb/ B Cmplx/FA/Prenat (Nephro-Vikram) 1 tab PRN DAILY PRN PO SUPPLEMENT; Start 03/28/18 at 09:00 Hydralazine HCl (Apresoline) 10 mg TID PO ; Start 03/27/18 at 21:00 Lisinopril (Prinivil) 20 mg QHS PO ; Start 03/27/18 at 21:00 Lisinopril (Prinivil) 40 mg DAILY PO ; Start 03/28/18 at 09:00 Loperamide HCl (Imodium) 2 mg PRN Q2HR PRN PO DIARRHEA; Start 03/27/18 at 16:30 Magnesium Hydroxide (Milk Of Magnesia) 2,400 mg PRN QHS PRN PO CONSTIPATION; Start 03/27/18 at 16:30 Memantine (Namenda) 10 mg BID PO ; Start 03/27/18 at 21:00 Potassium Chloride (Klor-Con) 20 meq 3X/WEEK PO ; Start 03/29/18 at 09:00 Artificial Tears (Artificial Tears) 2 drop PRN QID PRN OU DRY EYE; Start at 16:30 Quetiapine Fumarate (SEROquel) 25 mg TID PO ; Start 03/27/18 at 21:00 Rivastigmine (Exelon) 1 patch DAILY TD ; Start 03/28/18 at 09:00 Sodium Chloride (Saline Mist Nasal) 1 evan PRN TID PRN NS NASAL CONGESTION; Start 03/27/18 at 16:30 Trazodone HCl (Desyrel) 25 mg DAILY16 PO Last administered on 03/27/18at 16:58; Start 03/27/18 at 16:30 Trazodone HCl (Desyrel) 125 mg QHS PO ; Start 03/27/18 at 21:00 Non-Formulary Medication (Warfarin Sodium ) 4 mg DAILY16 PO ; Start 03/27/18 at 16:00; Status UNV Albuterol Sulfate (Ventolin) 2.5 mg PRN Q6HRS PRN NEB SHORTNESS OF BREATH; Start 03/27/18 at 16:45 Active Scripts Active Coreg (Carvedilol) 12.5 Mg Tablet 1 Tab PO BID Reported Warfarin Sodium 4 Mg Tablet 4 Mg PO DAILY16 Vitamin D3 (Cholecalciferol (Vitamin D3)) 50,000 Unit Capsule 50,000 Unit PO WEEKLY Vitamin B-12 (Cyanocobalamin (Vitamin B-12)) 1,000 Mcg Tablet 1,000 Mcg PO DAILY Trazodone Hcl 50 Mg Tablet 25 Mg PO DAILY16 Seroquel (Quetiapine Fumarate) 25 Mg Tablet 25 Mg PO TID Probiotic (Saccharomyces Boulardii) 250 Mg Capsule 250 Mg PO DAILY Norvasc (Amlodipine Besylate) 5 Mg Tablet 5 Mg PO DAILY Nephro-Vikram Tablet (Folic Acid/Vitamin B Comp W-C) 0.8 Mg Tablet 1 Tab PO DAILY PRN Lorazepam 1 Mg Tablet 1 Mg PO PRN Q4HRS PRN Lisinopril 40 Mg Tablet 40 Mg PO DAILY Hydralazine Hcl 10 Mg Tablet 10 Mg PO TID EXELON 9.5mg/24hr (Rivastigmine) 1 Each Patch.td24 1 Patch TD DAILY Divalproex Sodium 500 Mg Tablet.dr 250 Mg PO HS Depakote (Divalproex Sodium) 500 Mg Tablet.dr 750 Mg PO BID Saline Nasal [place] (Sodium Chloride) 30 Ml [place] 30 Ml NS TID Sertraline Hcl 100 Mg Tablet 125 Mg PO DAILY Mag-Al Plus Xs Suspension (Mag Hydrox/Al Hydrox/Simeth) 30 Ml Oral.susp 15 Ml PO PRN Q6HRS PRN Potassium Chloride Oral Liquid (Potassium Chloride) 20 Meq/15 Ml Liquid 20 Meq PO 3X/WEEK Administer on Thursday, Thursday and Thursday Thera-M Tablet (Multivits,Ca,Minerals/Iron/Fa) 1 Each Tablet 1 Tab PO DAILY Namenda (Memantine Hcl) 5 Mg Tablet 10 Mg PO BID Voltaren (Diclofenac Sodium) 100 Gm Gel..gram. 1 Evan TP PRN Q12HR PRN Trazodone Hcl 50 Mg Tablet 125 Mg PO QHS Systane 0.3-0.4% Eye Drops (Propylene Glycol/Peg 400) 15 Ml Drops 2 Drop OU PRN QID PRN Senokot-S Tablet (Sennosides/Docusate Sodium) 1 Each Tablet 1 Tab PO BID Milk Of Magnesia (Magnesium Hydroxide) 2,400 Mg/10 Ml Oral.susp 30 Ml PO PRN QHS PRN Lisinopril 40 Mg Tablet 20 Mg PO QHS Imodium A-D (Loperamide Hcl) 1 Mg/7.5 Ml Liquid 2 Mg PO PRN Q2HR PRN Max dose of 16mg in 24 hours Dulcolax (Bisacodyl) 10 Mg Supp.rect 10 Mg RC PRN DAILY PRN Buspirone Hcl 10 Mg Tablet 10 Mg PO QID Baclofen 10 Mg Tablet 5 Mg PO DAILY Baclofen 10 Mg Tablet 10 Mg PO QHS Atorvastatin Calcium 20 Mg Tablet 20 Mg PO QHS Aspir-Low (Aspirin) 81 Mg Tablet.dr 81 Mg PO DAILY Proair Hfa Inhaler (Albuterol Sulfate) 8.5 Gm Hfa.aer.ad 1 Puff INH PRN Q6HRS PRN Acetaminophen 500 Mg Tablet 500 Mg PO PRN Q4HRS PRN NTE 3000mg APAP in 24 hours from all sources I have reviewed the current psychotropics carefully including drug interactions. Risk benefit ratio favors no change other than as noted in my dictated progress note. Diagnosis: Problems: (1) Impulse control disorder (2) Dementia, vascular, with depression (3) Dementia, vascular, with delusions (4) Anxiety disorder (5) Atrial fibrillation with rapid ventricular response DEAN GARDNER MD Mar 27, 2018 18:17
[2018-03-27] MEDS ORDERED: LORazepam 2 MG/ML VIAL IV PRN (19:30)
[2018-03-27] MEDS: LACTOBACILLUS RHAMNOSUS GG 1 CAPSULE. PO SCH (20:50)
[2018-03-27] MEDS: hydrALAZINE 10 MG TABLET PO SCH (20:50)
[2018-03-27] MEDS: ATORVASTATIN CALCIUM 20 MG TABLET PO SCH (20:50)
[2018-03-27] MEDS: QUEtiapine 25 MG TABLET. PO SCH (20:50)
[2018-03-27] MEDS: MEMANTINE 10 MG TABLET. PO SCH (20:53)
[2018-03-27] MEDS: SENNOSIDES/DOCUSATE 8.6/50MG TABLET. PO SCH (20:54)
[2018-03-27] MEDS ORDERED: BACLOFEN 10 MG TABLET PO SCH (21:00)
[2018-03-27] MEDS ORDERED: DIVALPROEX 125 MG CAP.SPRINK PO SCH (21:00)
[2018-03-27] MEDS ORDERED: DIVALPROEX ER 250 MG TAB.ER.24H. PO SCH (21:00)
[2018-03-27] MEDS ORDERED: LISINOPRIL 20 MG TABLET PO SCH (21:00)
--- NOTE | 2018-03-28 01:33 | CONS ---
DATE OF CONSULTATION: 03/27/2018 IDENTIFYING DATA: The patient is a 67-year-old -[place] male seen in ICU bed for a psychiatric consult, requested by Dr. Pennington after the patient was initially referred from the [facility] to the [facility] because he was throwing objects at people and staff members. He was looking for items like his wallet keys and truck. He is combative with worsening behaviors over 1-2 weeks, referred for inpatient psychiatric stabilization. He presented to the Emergency Room, was found to have new onset of atrial fibrillation and admitted to the ICU per Dr. Pennington for medical stabilization and I have been asked to consult from a psychiatric standpoint. CHIEF COMPLAINT: "No, I don't do those things." HISTORY OF PRESENT ILLNESS: The patient has a history of dementia, Alzheimer's vascular type. He has been residing at [facility] in [place], [place] where I followed him from a psychiatric standpoint. Over the past 1 or 2 weeks, he has been increasingly agitated, disruptive with marked mood lability, intermittent psychotic symptoms and aggression as noted. No clear history of bipolar disorder, suicidal or homicidal ideation. He is cognitively markedly compromised status post CVA and vascular, Alzheimer's dementia. While in the ICU per nursing report, the patient has had intermittent hallucinations, yelling out, seeing snakes and asking the nursing staff if the blue bags in the ICU were to put his body once the staff kill him. PAST PSYCHIATRIC HISTORY: As above. MEDICAL HISTORY: New onset atrial fibrillation, heart failure, aphasia, hypertension, status post CVA, left hemiplegia, chronic constipation, dyspepsia, hyperlipidemia, chronic pain. ALLERGIES: Negative. PRIMARY CARE PHYSICIAN: At [facility] with Dr. Shannan Kat. CURRENT PSYCHOTROPICS: MRAD was reviewed. Please refer to my initial note for details. FAMILY HISTORY: Noncontributory. SOCIAL HISTORY: No alcohol or drug abuse history. MENTAL STATUS EXAMINATION: The patient was seen individually evening of 03/27/2018. He is oriented to himself. Insight, judgment, recent and remote memory, attention, concentration, fund of knowledge poor, consistent with his diagnosis. He is unaware of the date or the year. LABORATORY DATA: Reviewed. IMPRESSION: Major neurocognitive disorder, Alzheimer, vascular with delusion, depression, behavioral disturbance; anxiety disorder, unspecified; impulse control disorder, unspecified. PLAN: From a psychiatric standpoint, we will reassess the patient's symptoms once he is medically stable from atrial fibrillation. He may need to be treated on atypical antipsychotics and may need transfer to the inpatient psychiatry service once he is medically stable. I prefer not to add anything from a psychiatric standpoint while he is in the ICU until he is medically stabilized. Dr. Pennington, thank you for the opportunity to participate in your patient's care. We will follow with you. DEAN GARDNER MD DR: DAMIEN/rose JOB#: [id number] / [id number]
[2018-03-28 05:50] VITALS: BP 108/66
[2018-03-28] MEDS: CARVEDILOL 12.5 MG TABLET PO SCH ×2 (08:00→17:19)
[2018-03-28] MEDS ORDERED: BACLOFEN 10 MG TABLET PO SCH (09:00)
[2018-03-28] MEDS: RIVASTIGMINE 9.5MG PATCH. TD SCH (09:00)
[2018-03-28] MEDS ORDERED: LISINOPRIL 20 MG TABLET PO SCH (09:00)
[2018-03-28] MEDS ORDERED: SERTRALINE 100 MG TABLET. PO SCH (09:00)
[2018-03-28] MEDS ORDERED: DIVALPROEX 125 MG CAP.SPRINK PO SCH (09:00)
[2018-03-28] MEDS: amLODIPine BESYLATE 5 MG TABLET PO SCH (09:00)
[2018-03-28] MEDS: hydrALAZINE 10 MG TABLET PO SCH (09:00)
[2018-03-28] MEDS ORDERED: FOLIC/VIT B COMP W-C (RENAL) TABLET. PO PRN (09:00)
[2018-03-28 09:07] VITALS: BP 97/60
[2018-03-28] MEDS: ASPIRIN ENTERIC COATED 81 MG TABLET.DR. PO SCH (09:17)
[2018-03-28] MEDS: SENNOSIDES/DOCUSATE 8.6/50MG TABLET. PO SCH ×2 (09:19→20:15)
[2018-03-28] MEDS: CYANOCOBALAMIN (VITAMIN B-12) 1,000 MCG TABLET. PO SCH (09:19)
[2018-03-28] MEDS: busPIRone 10 MG TABLET. PO SCH (09:19)
[2018-03-28] MEDS: QUEtiapine 25 MG TABLET. PO SCH (09:19)
[2018-03-28] MEDS: LACTOBACILLUS RHAMNOSUS GG 1 CAPSULE. PO SCH ×2 (09:20→20:15)
[2018-03-28] MEDS: MULTIVITAMIN with MINERAL TABLET. PO SCH (09:20)
[2018-03-28] MEDS: MEMANTINE 10 MG TABLET. PO SCH ×2 (09:22→20:15)
[2018-03-28 11:03] LABS: HEMATOCRIT 36.1 % (39.0-53.0); HEMOGLOBIN 12.2 g/dL (13.0-17.5); RED BLOOD COUNT 3.93 x10^6/uL (4.30-5.70); RED CELL DISTRIBUTION WIDTH 13.5 % (11.5-14.5); WHITE BLOOD COUNT 6.7 x10^3/uL (4.0-11.0)
[2018-03-28 11:13] LABS: ALBUMIN 2.8 g/dL (3.4-5.0); ALBUMIN/GLOBULIN RATIO 0.9 (1.0-1.7); CALCIUM 8.4 mg/dL (8.5-10.1); CREATININE 1.5 mg/dL (0.7-1.3); GFR 56.3; POTASSIUM 4.6 mmol/L (3.5-5.1); TOTAL BILIRUBIN 0.4 mg/dL (0.2-1.0)
[2018-03-28 11:16] LABS: BGAS PH 7.39 (7.35-7.46)
--- NOTE | 2018-03-28 11:38 | RAD ---
PORTABLE CHEST 1V Clinical indications: worsening chest sounds COMPARISON: March 26, 2018. Findings: No acute lung infiltrate or pleural effusion or pulmonary edema or lung mass or pneumothorax is seen. The heart size, pulmonary vasculature, mediastinum and both may are unremarkable. Inferior subluxation of the left humeral head with respect to the glenoid fossa is seen. Impression: No acute lung infiltrate. Inferior subluxation of the left humeral head. Electronically signed by: Fede Fontenot MD (03/28/2018 11:35 AM) [facility]
[2018-03-28 12:03] VITALS: BP 103/71
--- NOTE | 2018-03-28 14:43 | RAD ---
CT HEAD WO CONTRAST Clinical indications: mental status change COMPARISON: March 22, 2017. Technique: Noncontrast axial cross sectional scanning of the head was performed. PQRS compliance Statement One or more of the following individualized dose reduction techniques were utilized for this study: 1. Automated exposure control 2. Adjustment of the mA and/or kV according to patient size 3. Use of iterative reconstruction technique Findings: No acute intracranial hemorrhage or midline shift or mass-effect or extra-axial fluid collection is seen. Chronic atrophy and ventriculomegaly is seen. This has not changed significantly. Moderate bilateral periventricular white matter hypodensity is seen consistent with chronic small vessel ischemic disease in this age group. This is unchanged. There is an old small cortical infarct of the medial aspect of the right occipital lobe. No skull fracture or pneumocephalus is seen. No opacification of the mastoid sinuses or the paranasal sinuses is seen. The maxillary sinuses are not completely seen in this study. Impression: No new intracranial abnormality is seen. Chronic ischemic disease. Electronically signed by: Fede Fontenot MD (03/28/2018 2:40 PM) [facility]
[2018-03-28 14:48] VITALS: BP 146/91
--- NOTE | 2018-03-28 14:48 | PDOC ---
Exam Note: [place] Note: Please also refer to the separate dictated note~for this date of service dictated separately.~Patient seen individually. Discussed the patient with Nursing staff reviewed the chart.~Reviewed interim history and current functioning. Reviewed vital signs,~Labs/ Radiology~and current medications noted below. Continue current treatment with the changes noted in the dictated addendum note Assessment: Vital Signs: Vital Signs Date Time Temp Pulse Resp B/P (MAP) Pulse Ox O2 Delivery O2 Flow Rate FiO2 03/28/18 12:03 96.1 74 18 103/71 (82) 93 Room Air I&O Intake and Output 03/28/18 07:00 Intake Total 900 ml Output Total 350 ml Balance 550 ml Intake Oral 900 ml Output Urine Total 350 ml # Bowel Movements 1 Labs: Laboratory Tests Test 03/27/18 20:45 03/28/18 08:26 03/28/18 11:07 03/28/18 12:35 Glucose (Fingerstick) 112 mg/dL (70-99) H 96 mg/dL (70-99) White Blood Count 6.7 x10^3/uL (4.0-11.0) Red Blood Count 3.93 x10^6/uL (4.30-5.70) L Hemoglobin 12.2 g/dL (13.0-17.5) L Hematocrit 36.1 % (39.0-53.0) L Mean Corpuscular Volume 92 fL (79-100) Mean Corpuscular Hemoglobin 31 pg (25-35) Mean Corpuscular Hemoglobin Concent 34 g/dL (31-37) Red Cell Distribution Width 13.5 % (11.5-14.5) Platelet Count 121 x10^3/uL (140-400) L Prothrombin Time 20.5 SEC (9.4-11.4) H Prothrombin Time INR 2.0 (0.9-1.1) H Sodium Level 142 mmol/L (136-145) Potassium Level 4.6 mmol/L (3.5-5.1) Chloride Level 107 mmol/L (98-107) Carbon Dioxide Level 26 mmol/L (21-32) Anion Gap 9 (6-14) Blood Urea Nitrogen 34 mg/dL (8-26) H Creatinine 1.5 mg/dL (0.7-1.3) H Estimated GFR (Cockcroft-Gault) 56.3 BUN/Creatinine Ratio 23 (6-20) H Glucose Level 113 mg/dL (70-99) H Calcium Level 8.4 mg/dL (8.5-10.1) L Total Bilirubin 0.4 mg/dL (0.2-1.0) Aspartate Amino Transferase (AST) 26 U/L (15-37) Alanine Aminotransferase (ALT) 22 U/L (16-63) Alkaline Phosphatase 52 U/L (46-116) Total Protein 6.0 g/dL (6.4-8.2) L Albumin 2.8 g/dL (3.4-5.0) L Albumin/Globulin Ratio 0.9 (1.0-1.7) L Blood pH 7.39 (7.35-7.46) Blood Gas PCO2 39 mmHg (35-46) Blood Gas PO2 71 mmHg (80-100) L Blood Gas HCO3 24 mmol/L (21-28) Arterial Bld O2 Saturation (Calc) 94 % (92-99) FiO2 21 % Test 03/28/18 13:40 Ammonia < 10 mcmol/L (11-34) L Current Medications: Meds: Current Medications Sodium Chloride 1,000 ml @ 1,000 mls/hr 1X ONCE IV Last administered on at 15:15; Start 03/26/18 at 15:30; Stop 03/26/18 at 16:29; Status DC Sodium Chloride 1,000 ml @ 1,000 mls/hr 1X ONCE IV Last administered on at 17:30; Start 03/26/18 at 20:00; Stop 03/26/18 at 20:59; Status DC Metoprolol Tartrate (Lopressor Vial) 5 mg 1X ONCE IV Last administered on at 20:15; Start 03/26/18 at 20:00; Stop 03/26/18 at 20:01; Status DC Verapamil HCl (Verapamil HCl) 5 mg 1X ONCE IV Last administered on 03/26/18at 21 :12; Start 03/26/18 at 21:15; Stop 03/26/18 at 21:16; Status DC Ondansetron HCl (Zofran Odt) 4 mg PRN Q4HRS PRN PO NAUSEA/VOMITING; Start at 22:00 Acetaminophen (Tylenol) 650 mg PRN Q4HRS PRN PO FEVER; Start 03/26/18 at 21:45; Stop 03/27/18 at 16:06; Status DC Verapamil HCl (Verapamil HCl) 10 mg PRN Q8HRS PRN IV HR > 120; Start 03/26/18 at 21:45; Stop 03/26/18 at 22:21; Status DC Aspirin (Children'S Aspirin) 81 mg DAILY PO Last administered on 03/27/18at 09:45 ; Start 03/27/18 at 09:00; Stop 03/27/18 at 16:06; Status DC Carvedilol (Coreg) 12.5 mg BIDWMEALS PO Last administered on 03/27/18at 09:45; Start 03/27/18 at 08:00; Stop 03/27/18 at 16:40; Status DC Divalproex Sodium (Depakote Er) 250 mg QHS PO ; Start 03/27/18 at 21:00; Stop 03/27/18 at 21:00; Status DC Memantine (Namenda) 5 mg BID PO Last administered on 03/27/18at 09:46; Start 03/27 at 09:00; Stop 03/27/18 at 16:40; Status DC Amlodipine Besylate (Norvasc) 5 mg DAILY PO Last administered on 03/27/18at 09:45 ; Start 03/27/18 at 09:00; Stop 03/27/18 at 16:06; Status DC Trazodone HCl (Desyrel) 25 mg QHS PO ; Start 03/27/18 at 21:00; Stop 03/27/18 at 21:00; Status DC Verapamil HCl (Verapamil HCl) 2.5 mg 1X ONCE IV Last administered on 03/26/18at 22:37; Start 03/26/18 at 22:30; Stop 03/26/18 at 22:33; Status DC Olanzapine (ZyPREXA ZYDIS) 5 mg 1X ONCE PO Last administered on 03/26/18at 22:41 ; Start 03/26/18 at 22:30; Stop 03/26/18 at 22:34; Status DC Verapamil HCl 50 mg/Sodium Chloride 120 ml @ 5 mls/hr 1X ONCE IV ; Start at 22:30; Stop 03/26/18 at 22:35; Status DC Verapamil HCl (Verapamil HCl) 2.5 mg PRN Q15MIN PRN IV TACHYCARDIA; Start at 22:30 Verapamil HCl 50 mg/Sodium Chloride 100 ml @ 5 mls/hr 1X ONCE IV Last administered on 03/27/18at 00:23; Start 03/26/18 at 22:35; Stop 03/27/18 at 18:29; Status DC Warfarin Sodium (Coumadin Per Physician) 1 each PRN DAILY PRN MC SEE COMMENTS; Start 03/27/18 at 08:00 Albuterol Sulfate (Ventolin Hfa) 1 puff PRN Q6HRS PRN INH SHORTNESS OF BREATH; Start 03/27/18 at 15:45; Status UNV Atorvastatin Calcium (Lipitor) 20 mg QHS PO Last administered on 03/27/18at 20:50 ; Start 03/27/18 at 21:00 Vitamin D (Vitamin D3) 50,000 unit WEEKLY PO ; Start 04/03/18 at 09:00 Cyanocobalamin (Vitamin B-12) 1,000 mcg DAILY PO Last administered on 03/28/18at 09:19; Start 03/28/18 at 09:00 Diclofenac Sodium (Voltaren) 1 evan PRN Q12HR PRN TP PAIN; Start 03/27/18 at 15: 45 Lorazepam (Ativan) 1 mg PRN Q4HRS PRN PO ANXIETY / AGITATION Last administered on 03/27/18at 17:09; Start 03/27/18 at 16:15; Stop 03/28/18 at 13:38; Status DC Al Hydroxide/Mg Hydroxide (Mylanta Plus Xs) 15 ml PRN Q6HRS PRN PO DYSPEPSIA; Start 03/27/18 at 15:45 Multivitamins/ Calcium (Thera-M Plus) 1 tab DAILY PO Last administered on at 09:20; Start 03/28/18 at 09:00 Lactobacillus Rhamnosus (Culturelle) 1 cap BID PO Last administered on at 09:20; Start 03/27/18 at 21:00 Senna/Docusate Sodium (Senna Plus) 1 tab BID PO Last administered on 03/28/18at 09:19; Start 03/27/18 at 21:00 Sertraline HCl (Zoloft) 125 mg DAILY PO Last administered on 03/28/18 09:19; Start 03/28/18 at 09:00; Stop 03/28/18 at 13:34; Status DC Acetaminophen (Tylenol) 500 mg PRN Q4HRS PRN PO PAIN / TEMP Last administered on 03/27/18 20:50; Start 03/27/18 at 16:15 Amlodipine Besylate (Norvasc) 5 mg DAILY PO ; Start 03/28/18 at 09:00 Aspirin (Aspirin Enteric Coated) 81 mg DAILY PO Last administered on 03/28/18 09:17; Start 03/28/18 at 09:00 Baclofen (Lioresal) 5 mg DAILY PO Last administered on 03/28/18 09:18; Start at 09:00; Stop 03/28/18 at 13:29; Status DC Baclofen (Lioresal) 10 mg QHS PO Last administered on 03/27/18 20:50; Start 03/27/18 at 21:00; Stop 03/28/18 at 13:29; Status DC Bisacodyl (Dulcolax Supp) 10 mg PRN DAILY PRN IN CONSTIPATION; Start 03/27/18 at 16:15 Buspirone HCl (Buspar) 10 mg QID PO Last administered on 03/28/18 09:19; Start 03/27/18 at 17:00; Stop 03/28/18 at 13:29; Status DC Carvedilol (Coreg) 12.5 mg BIDWMEALS PO Last administered on 03/27/18at 16:58; Start 03/27/18 at 17:00 Divalproex Sodium (Depakote Sprinkles) 750 mg DAILY PO Last administered on 03/28 09:20; Start 03/28/18 at 09:00; Stop 03/28/18 at 13:29; Status DC Divalproex Sodium (Depakote Sprinkles) 1,000 mg QHS PO Last administered on 03/27 20:50; Start 03/27/18 at 21:00; Stop 03/28/18 at 13:29; Status DC Multivit/Ca Carb/ B Cmplx/FA/Prenat (Nephro-Vikram) 1 tab PRN DAILY PRN PO SUPPLEMENT; Start 03/28/18 at 09:00 Hydralazine HCl (Apresoline) 10 mg TID PO Last administered on 03/27/18at 20:50; Start 03/27/18 at 21:00; Stop 03/28/18 at 13:38; Status DC Lisinopril (Prinivil) 20 mg QHS PO Last administered on 03/27/18at 20:51; Start 03/27/18 at 21:00; Stop 03/28/18 at 13:29; Status DC Lisinopril (Prinivil) 40 mg DAILY PO ; Start 03/28/18 at 09:00; Stop 03/28/18 at 13:29; Status DC Loperamide HCl (Imodium) 2 mg PRN Q2HR PRN PO DIARRHEA; Start 03/27/18 at 16:30 Magnesium Hydroxide (Milk Of Magnesia) 2,400 mg PRN QHS PRN PO CONSTIPATION; Start 03/27/18 at 16:30 Memantine (Namenda) 10 mg BID PO Last administered on 03/28/18at 09:22; Start 03/27/18 at 21:00 Potassium Chloride (Klor-Con) 20 meq 3X/WEEK PO ; Start 03/29/18 at 09:00 Artificial Tears (Artificial Tears) 2 drop PRN QID PRN OU DRY EYE; Start at 16:30 Quetiapine Fumarate (SEROquel) 25 mg TID PO Last administered on 03/28/18at 09:19 ; Start 03/27/18 at 21:00; Stop 03/28/18 at 13:34; Status DC Rivastigmine (Exelon) 1 patch DAILY TD Last administered on 03/28/18at 09:00; Start 03/28/18 at 09:00 Sodium Chloride (Saline Mist Nasal) 1 evan PRN TID PRN NS NASAL CONGESTION; Start 03/27/18 at 16:30 Trazodone HCl (Desyrel) 25 mg DAILY16 PO Last administered on 03/27/18at 16:58; Start 03/27/18 at 16:30; Stop 03/28/18 at 13:34; Status DC Trazodone HCl (Desyrel) 125 mg QHS PO Last administered on 03/27/18at 20:48; Start 03/27/18 at 21:00; Stop 03/28/18 at 13:34; Status DC Non-Formulary Medication (Warfarin Sodium ) 4 mg DAILY16 PO ; Start 03/27/18 at 16:00; Status UNV Albuterol Sulfate (Ventolin) 2.5 mg PRN Q6HRS PRN NEB SHORTNESS OF BREATH; Start 03/27/18 at 16:45 Lorazepam (Ativan) 0.5 mg PRN Q4HRS PRN IV ANXIETY / AGITATION Last administered on 03/27/18at 19:42; Start 03/27/18 at 19:30; Stop 03/28/18 at 13:29; Status DC Dextrose/Sodium Chloride 1,000 ml @ 100 mls/hr Q10H IV ; Start 03/28/18 at 13:30 Warfarin Sodium (Coumadin) 3 mg DAILY16 PO ; Start 03/28/18 at 16:00 Active Scripts Active Coreg (Carvedilol) 12.5 Mg Tablet 1 Tab PO BID Reported Warfarin Sodium 4 Mg Tablet 4 Mg PO DAILY16 Vitamin D3 (Cholecalciferol (Vitamin D3)) 50,000 Unit Capsule 50,000 Unit PO WEEKLY Vitamin B-12 (Cyanocobalamin (Vitamin B-12)) 1,000 Mcg Tablet 1,000 Mcg PO DAILY Trazodone Hcl 50 Mg Tablet 25 Mg PO DAILY16 Seroquel (Quetiapine Fumarate) 25 Mg Tablet 25 Mg PO TID Probiotic (Saccharomyces Boulardii) 250 Mg Capsule 250 Mg PO DAILY Norvasc (Amlodipine Besylate) 5 Mg Tablet 5 Mg PO DAILY Nephro-Vikram Tablet (Folic Acid/Vitamin B Comp W-C) 0.8 Mg Tablet 1 Tab PO DAILY PRN Lorazepam 1 Mg Tablet 1 Mg PO PRN Q4HRS PRN Lisinopril 40 Mg Tablet 40 Mg PO DAILY Hydralazine Hcl 10 Mg Tablet 10 Mg PO TID EXELON 9.5mg/24hr (Rivastigmine) 1 Each Patch.td24 1 Patch TD DAILY Divalproex Sodium 500 Mg Tablet.dr 250 Mg PO HS Depakote (Divalproex Sodium) 500 Mg Tablet.dr 750 Mg PO BID Saline Nasal [place] (Sodium Chloride) 30 Ml [place] 30 Ml NS TID Sertraline Hcl 100 Mg Tablet 125 Mg PO DAILY Mag-Al Plus Xs Suspension (Mag Hydrox/Al Hydrox/Simeth) 30 Ml Oral.susp 15 Ml PO PRN Q6HRS PRN Potassium Chloride Oral Liquid (Potassium Chloride) 20 Meq/15 Ml Liquid 20 Meq PO 3X/WEEK Administer on Thursday, Thursday and Thursday Thera-M Tablet (Multivits,Ca,Minerals/Iron/Fa) 1 Each Tablet 1 Tab PO DAILY Namenda (Memantine Hcl) 5 Mg Tablet 10 Mg PO BID Voltaren (Diclofenac Sodium) 100 Gm Gel..gram. 1 Evan TP PRN Q12HR PRN Trazodone Hcl 50 Mg Tablet 125 Mg PO QHS Systane 0.3-0.4% Eye Drops (Propylene Glycol/Peg 400) 15 Ml Drops 2 Drop OU PRN QID PRN Senokot-S Tablet (Sennosides/Docusate Sodium) 1 Each Tablet 1 Tab PO BID Milk Of Magnesia (Magnesium Hydroxide) 2,400 Mg/10 Ml Oral.susp 30 Ml PO PRN QHS PRN Lisinopril 40 Mg Tablet 20 Mg PO QHS Imodium A-D (Loperamide Hcl) 1 Mg/7.5 Ml Liquid 2 Mg PO PRN Q2HR PRN Max dose of 16mg in 24 hours Dulcolax (Bisacodyl) 10 Mg Supp.rect 10 Mg RC PRN DAILY PRN Buspirone Hcl 10 Mg Tablet 10 Mg PO QID Baclofen 10 Mg Tablet 5 Mg PO DAILY Baclofen 10 Mg Tablet 10 Mg PO QHS Atorvastatin Calcium 20 Mg Tablet 20 Mg PO QHS Aspir-Low (Aspirin) 81 Mg Tablet.dr 81 Mg PO DAILY Proair Hfa Inhaler (Albuterol Sulfate) 8.5 Gm Hfa.aer.ad 1 Puff INH PRN Q6HRS PRN Acetaminophen 500 Mg Tablet 500 Mg PO PRN Q4HRS PRN NTE 3000mg APAP in 24 hours from all sources I have reviewed the current psychotropics carefully including drug interactions. Risk benefit ratio favors no change other than as noted in my dictated progress note. Diagnosis: Problems: (1) Impulse control disorder (2) Dementia, vascular, with depression (3) Dementia, vascular, with delusions (4) Anxiety disorder (5) Atrial fibrillation with rapid ventricular response (6) Hypertension (7) TIA (transient ischemic attack) (8) Hemiplegia affecting left nondominant side DEAN GARDNER MD Mar 28, 2018 14:48
[2018-03-28] MEDS: IV DEXTROSE 5 %-0.45 % NACL 1,000 ML IV SCH ×2 (15:24→23:57)
[2018-03-28] MEDS ORDERED: WARFARIN 3 MG TABLET. PO SCH (16:00)
[2018-03-28 17:08] VITALS: BP 140/70
[2018-03-28] MEDS: ATORVASTATIN CALCIUM 20 MG TABLET PO SCH (20:15)
[2018-03-28 21:19] VITALS: BP 159/94
[2018-03-29 01:13] VITALS: BP 141/74
--- NOTE | 2018-03-29 05:01 | PN ---
DATE: 03/28/2018 SUBJECTIVE: The patient is resting slightly propped up, completely unresponsive. He does not open his eyes, nor does he respond to painful or verbal stimuli. He was extremely restless yesterday and was given IV Ativan around 7 o'clock in the evening; however, he got all his medication this morning that include among others his baclofen, sertraline, trazodone, quetiapine fumarate, buspirone. I have actually discontinued all these. I also held all his blood pressure medication as his blood pressure is extremely low. OBJECTIVE: GENERAL: On examining him, he was pale, but no jaundice or cyanosis. No lymphadenopathy, no thyromegaly. No jugular venous distention. No lower limb edema. VITAL SIGNS: His heart rate was 74, blood pressure 103/71, temperature was 96.1, respiratory rate was 18 and oxygen saturation was 93% on room air. HEAD, EYES, EARS, NOSE AND THROAT: Showed normocephalic, atraumatic. NECK: Supple. HEART: Showed normal first and second sounds. No gallop, rub or murmur. CHEST: Clear to auscultation. No crepitation or rhonchi. ABDOMEN: Distended, soft, nontender. NEUROLOGIC: He does not open his eyes nor does he respond to verbal or painful stimuli. 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 He has an indwelling Morales catheter. He is mostly bedbound and chair bound. His intake over the last 24 hours was 3000, output was 450. LABORATORY DATA: As of this morning, his white cell count was 6700, hemoglobin 12, hematocrit 36, MCV 92 and platelet count of 121,000. His chemistry showed a serum sodium 142, potassium 4.6, chloride 107, bicarbonate 26, anion gap of 9, BUN 34, creatinine 1.5. Estimated GFR was 56 mL per minute. His glucose was 113, calcium was 8.4. Total bilirubin, AST, ALT, alkaline phosphatase were normal. Total protein 6. Albumin 2.8. Blood gases showed a pH of 7.39, pCO2 of 39, pO2 of 71, bicarbonate 24 and oxygen saturation was 94% on room air. His prothrombin time was 20.5. INR of 2. His chest x-ray showed that he has no acute lung infiltrate or pleural effusion or pulmonary edema or lung mass or pneumothorax is seen. The heart size, pulmonary vasculature, mediastinum and both may are unremarkable. Inferior subluxation of the left humeral head with respect to the glenoid fossa is seen. IMPRESSION AND PLAN: 1. The patient is encephalopathic, the cause of which is probably multiple medications including Ativan, Seroquel, trazodone, baclofen. 2. Hypotension. I held all his blood pressure medication. 3. Acute kidney injury for which he was started on IV fluid. We will keep him n.p.o. We will hold all his blood pressure medication. We will arrange for him to have a stat CT scan of the head without contrast as well as ammonia. INDER MIRELES MD DR: ANTOINETTE/rose JOB#: [id number] / [id number]
[2018-03-29 06:04] VITALS: BP 115/69
[2018-03-29 06:37] LABS: HEMATOCRIT 32.5 % (39.0-53.0); RED BLOOD COUNT 3.53 x10^6/uL (4.30-5.70); RED CELL DISTRIBUTION WIDTH 13.4 % (11.5-14.5); WHITE BLOOD COUNT 5.7 x10^3/uL (4.0-11.0)
[2018-03-29 06:43] LABS: ALBUMIN 2.4 g/dL (3.4-5.0); ALBUMIN/GLOBULIN RATIO 0.7 (1.0-1.7); CALCIUM 8.2 mg/dL (8.5-10.1); CREATININE 1.4 mg/dL (0.7-1.3); POTASSIUM 3.6 mmol/L (3.5-5.1); TOTAL BILIRUBIN 0.3 mg/dL (0.2-1.0); TOTAL PROTEIN 5.7 g/dL (6.4-8.2)
[2018-03-29] MEDS: LACTOBACILLUS RHAMNOSUS GG 1 CAPSULE. PO SCH (08:59)
[2018-03-29] MEDS: MULTIVITAMIN with MINERAL TABLET. PO SCH (08:59)
[2018-03-29] MEDS: SENNOSIDES/DOCUSATE 8.6/50MG TABLET. PO SCH (08:59)
[2018-03-29] MEDS: CYANOCOBALAMIN (VITAMIN B-12) 1,000 MCG TABLET. PO SCH (08:59)
[2018-03-29] MEDS: ASPIRIN ENTERIC COATED 81 MG TABLET.DR. PO SCH (09:00)
[2018-03-29] MEDS: amLODIPine BESYLATE 5 MG TABLET PO SCH (09:00)
[2018-03-29] MEDS: CARVEDILOL 12.5 MG TABLET PO SCH (09:00)
[2018-03-29] MEDS ORDERED: POTASSIUM CHLORIDE 20 MEQ TABLET.ER. PO SCH (09:00)
[2018-03-29] MEDS: MEMANTINE 10 MG TABLET. PO SCH (09:01)
[2018-03-29] MEDS: RIVASTIGMINE 9.5MG PATCH. TD SCH (09:01)
[2018-03-29] MEDS: IV DEXTROSE 5 %-0.45 % NACL 1,000 ML IV SCH (09:02)
[2018-03-29 09:19] VITALS: BP 170/89
[2018-03-29] MEDS ORDERED: WARF3TAB54 PO (11:46)
[2018-03-29 12:08] VITALS: BP 136/68
--- NOTE | 2018-03-29 22:18 | PN ---
DATE: 03/28/2018 This note covers elements not covered in my initial note 03/28/2018. I met with the patient in the afternoon in ICU bed 4. Overall, patient was earlier quite sedated, not very responsive, but by the time I met with him, he seemed to have got through that stage. He has been more awake, alert. No clear hallucinations noted. Ambulation impaired. No CV, , pulmonary, eye system symptoms on review. MENTAL STATUS EXAM: Oriented to himself. Insight, judgment, recent and remote memory, attention, concentration, fund of knowledge poor consistent with his diagnosis. LABORATORY DATA: Reviewed. IMPRESSION: Major neurocognitive disorder, Alzheimer, vascular with delusion, depression, behavioral disturbance. Rest unchanged. PLAN: Continue psychotropics from initial note. Once he is medically stable, we will transfer him to the [facility] as that was the plan initially when he was referred to us from the half-way. DEAN GARDNER MD DR: DAMIEN/rose JOB#: [id number] / [id number]
--- NOTE | 2018-03-29 22:51 | DS ---
DATE OF DISCHARGE: 03/29/2018 HOSPITAL COURSE: The patient is a 67-year-old -Guatem[place] male patient, a [facility], who was originally brought to the Emergency Room with the aim to admit him to [facility]; however, on the account of being combative, argumentative with the patient and staff at his facility; however, by the time he arrived to the Emergency Room, he was found to be in atrial fibrillation with rapid ventricular response, treated with IV verapamil and was admitted to ICU. His heart rate remained stable and he also developed acute kidney injury for which he was started on IV fluid and his creatinine came back to his baseline and as his heart rate and kidney function normalized, the decision was made to transfer him upstairs to [facility] for inpatient psychiatric stabilization. PHYSICAL EXAMINATION: GENERAL: When I saw him today, he looked well and was clearly in no apparent respiratory distress, pale, but no jaundice, cyanosis, or thyromegaly. No jugular venous distension. No lower limb edema. VITAL SIGNS: His heart rate was 68, blood pressure 170/89, temperature was 97.9, respiratory rate was 18 and oxygen saturation was 98% on room air. HEAD, EYES, EARS, NOSE AND THROAT: Normocephalic, atraumatic. NECK: Supple. HEART: Showed normal first and second heart sounds. No gallop, rub or murmur. CHEST: Clear to auscultation. No crepitation or rhonchi. ABDOMEN: Distended, soft, nontender. NEUROLOGIC: He is awake, alert, but sometimes he is confused. He has left-sided hemiplegia, had an indwelling Morales catheter. His intake over the last 24 hours was 900, output was 350. LABORATORY DATA: His lab work this morning showed prothrombin time of 22. INR of 2.2, which is within therapeutic range. His white cell count was 5700, hemoglobin 11, hematocrit 33, MCV 92 and platelet count of 115,000. His chemistry showed a serum sodium 142, potassium 3.6, chloride 108, bicarbonate 26, anion gap of 8, BUN 27, creatinine 1.4. Estimated GFR was 61 mL per minute. His glucose 136. Calcium was 8.2. Total bilirubin, AST, ALT, alkaline phosphatase were normal. His ammonia was 15. Total protein was 5.7, albumin was 2.4. DISCHARGE MEDICATIONS: He was discharged to [facility] to continue on following medications, Coumadin 3 mg daily, Tylenol 500 mg every 4 hours as needed, albuterol sulfate for ProAir 1 puff every 6 hours, amlodipine besylate 5 mg daily, aspirin 81 mg once a day, atorvastatin calcium 20 mg at bedtime, baclofen 10 mg at bedtime, baclofen 5 mg daily, Dulcolax 10 mg suppository rectally daily p.r.n. for constipation, buspirone 10 mg 4 times a day, carvedilol 12.5 mg twice a day, cholecalciferol for vitamin D3 50,000 international unit once a week, cyanocobalamin 1000 mcg p.o. daily, diclofenac sodium, Voltaren gel 100 gram topically q. 12 hourly, divalproex sodium 750 mg twice a day, divalproex sodium 250 mg at bedtime, multivitamin for Nephro-Vikram 1 tablet once a day, hydralazine 10 mg 3 times a day, lisinopril 40 mg daily and 20 mg at bedtime, loperamide 2 mg every 2 hours as needed, lorazepam 1 mg every 4 hours, Mylanta 30 mL orally every 4 hours as needed, magnesium hydroxide for milk of magnesia 30 mL p.o. daily p.r.n. for constipation, Namenda 10 mg twice a day, multivitamin 1 tablet once a day, potassium 20 mEq in 15 mL liquid form 3 times per week, Systane 2 drops to both eyes 4 times a day, quetiapine fumarate 25 mg 3 times a day, Exelon 9.5 mg transdermal patch once a day, saccharomyces boulardii 250 mg once a day, Senna-S 1 tablet twice a day, sertraline 125 mg once a day, saline nasal spray one spray 3 times a day, trazodone 125 mg at bedtime and trazodone 25 mg daily. FINAL DISCHARGE DIAGNOSES: 1. Atrial fibrillation with rapid ventricular response, resolved. 2. Acute kidney injury, resolved. The patient has multiple other medical problems including hypertension, hyperlipidemia, congestive heart failure, right-sided cerebrovascular accident with left side hemiplegia, muscle weakness and anxiety. INDER MIRELES MD DR: ANTOINETTE/rose JOB#: [id number] / [id number]
[2018-04-03] MEDS ORDERED: CHOLECALCIFEROL (VITAMIN D3) 50,000 UNIT CAPSULE PO SCH (09:00)
== END 2018-03-29 15:27 | DRG 682 ==
LOC: ER 13:26 → ICU 21:30
PROVIDERS: ADMIT Internal Medicine; ATTEND Internal Medicine
DX: N17.9 Acute kidney failure, unspecified (principal); G93.40 Encephalopathy, unspecified; I11.0 Hypertensive heart disease with heart failure; G45.9 Transient cerebral ischemic attack, unspecified; I95.9 Hypotension, unspecified; I48.91 Unspecified atrial fibrillation; I50.9 Heart failure, unspecified; I69.354 Hemiplegia and hemiparesis following cerebral infarction affecting left non-dominant side; G30.9 Alzheimer's disease, unspecified; F01.50 Vascular dementia, unspecified severity, without behavioral disturbance, psychotic disturbance, mood disturbance, and anxiety; I69.320 Aphasia following cerebral infarction; F41.9 Anxiety disorder, unspecified; F32.9 Major depressive disorder, single episode, unspecified; F63.9 Impulse disorder, unspecified; F02.80 Dementia in other diseases classified elsewhere, unspecified severity, without behavioral disturbance, psychotic disturbance, mood disturbance, and anxiety; E78.00 Pure hypercholesterolemia, unspecified; E78.5 Hyperlipidemia, unspecified; G89.29 Other chronic pain; K59.09 Other constipation; Z90.89 Acquired absence of other organs; Z87.891 Personal history of nicotine dependence; Z87.440 Personal history of urinary (tract) infections; Z79.82 Long term (current) use of aspirin; Z79.899 Other long term (current) drug therapy; Z79.01 Long term (current) use of anticoagulants
CPT/HCPCS: 36415; 36600; 51701; 70450; 71045; 80048; 80053; 80307; 81001; 82140; 82803; 82947; 83735; 83880; 84484; 85025; 85027; 85610; 85730; 87086; 87186; 87641; 93005; 96361; 96374; 96375; 96376; J2060; J3490; 99285-25; G0479; J7030

== ENCOUNTER 2018-03-29 16:22 | Inpatient (IN) | payer MEDICARE, OTHER ==
[~2018-03-29] VITALS: Ht 188 cm; Wt 102.1 kg
--- NOTE | 2018-03-29 16:00 | NUR ---
Admission Note with Justification for Admission to [facility] Patient admitted to [facility] for protective oversight for emergency stabilization of acute psychiatric crisis. Pt admitted from: SNF Mode of arrival: EMS Accompanied By: EMS Precipitating behaviors that initiated intake and admission: throwing objects at people, yelling at staff, looking for items that he never had at facility and blaming others of taking them Description of failure of out patient attempts at stabilization in previous setting list behavior and medication trials: prn medications and behavioral modifications Behaviors and assessment findings upon admission: calm, pleasantly confused when transferred up from [address] [place] [address] Plan: Admit for protective oversight for adjustment and stabilization of medications, behaviors and mood. Intense treatment regimen including groups, medication adjustments, therapy, consistent regimen for ADL's, self care, and sleep hygiene. Daily monitoring by Inpatient staff, Psychiatry, and Medical Physician.
[~2018-03-29 16:22] MED LIST changes: +AMLO5TAB4 PO; +CHOL500050 PO; +CYAN10005 PO; +DIVA-53 PO; +FOLI0.8T33 PO; +LORA-254 PO; +QUET25TA5 PO; +RIVA1PAT23 TD; +SACC250C8 PO; +TRAZ-85 PO; -TRAZ50TA15 PO; +WARF3TAB54 PO; +WARF4TAB64 PO
[2018-03-29 16:30] VITALS: BP 129/92
[2018-03-29] MEDS ORDERED: ACETAMINOPHEN 325 MG TABLET PO PRN (16:30)
[2018-03-29] MEDS ORDERED: METHYL SALICYLATE/MENTHOL TOPICAL OINTMENT 29GM TUBE. TP PRN (16:30)
[2018-03-29] MEDS ORDERED: MAG HYDROX/AL HYDROX/SIMETH 30 ML ORAL.SUSP PO PRN ×2 (16:30→17:00)
[2018-03-29] MEDS ORDERED: MAGNESIUM HYDROXIDE 2,400 MG/30 ML ORAL.SUSP. PO PRN (16:30)
[2018-03-29 16:42] VITALS: BP 143/78
[2018-03-29] MEDS ORDERED: NON FORMULARY ITEM (Magnesium Hydroxide (Milk Of Magnesia) 30 ML) PO PRN (17:00)
[2018-03-29] MEDS ORDERED: ALBUTEROL SULFATE 8GM INHALER. INH PRN (17:00)
[2018-03-29] MEDS ORDERED: ONDANSETRON ODT 4 MG TAB.RAPDIS PO PRN (17:30)
[2018-03-29] MEDS ORDERED: BISACODYL 10 MG SUPP.RECT PR PRN (17:45)
[2018-03-29] MEDS ORDERED: LOPERAMIDE 2 MG CAPSULE PO PRN (17:45)
[2018-03-29] MEDS ORDERED: ALBUTEROL SULFATE 2.5 MG/3 ML NEBU. NEB PRN (18:00)
[2018-03-29] MEDS ORDERED: SODIUM CHLORIDE 0.65% NASAL SPRAY 45ML BOTTLE. NS PRN (18:00)
[2018-03-29] MEDS ORDERED: POLYVINYL ALCOHOL 1.4% OPHTH SOLUTION 15ML BOTTLE. OU PRN (18:00)
[2018-03-29] MEDS: WARFARIN 3 MG TABLET. PO SCH (19:34)
[2018-03-29] MEDS: ATORVASTATIN CALCIUM 20 MG TABLET PO SCH (20:09)
[2018-03-29] MEDS: CEFPODOXIME PROXETIL 100 MG TABLET PO SCH (20:09)
[2018-03-29] MEDS: LACTOBACILLUS RHAMNOSUS GG 1 CAPSULE. PO SCH (20:09)
[2018-03-29] MEDS: MEMANTINE 10 MG TABLET. PO SCH (20:09)
[2018-03-29] MEDS: SENNOSIDES/DOCUSATE 8.6/50MG TABLET. PO SCH (20:09)
--- NOTE | 2018-03-29 20:53 | PDOC ---
Exam Note: [place] Note: Please also refer to the separate dictated note~for this date of service dictated separately.~Patient seen individually. Discussed the patient with Nursing staff reviewed the chart.~Reviewed interim history and current functioning. Reviewed vital signs,~Labs/ Radiology~and current medications noted below. Continue current treatment with the changes noted in the dictated addendum note Assessment: Vital Signs: Vital Signs Date Time Temp Pulse Resp B/P (MAP) Pulse Ox O2 Delivery O2 Flow Rate FiO2 03/29/18 16:42 97.5 68 18 143/78 (99) 98 Room Air Current Medications: Meds: Current Medications Acetaminophen (Tylenol) 650 mg PRN Q6HRS PRN PO PAIN / TEMP; Start 03/29/18 at 16:30; Status Cancel Multi-Ingredient Ointment (Analgesic [place]) 1 evan PRN QID PRN TP MUSCLE PAIN; Start 03/29/18 at 16:30 Al Hydroxide/Mg Hydroxide (Mylanta Plus Xs) 15 ml PRN AFTMEALHC PRN PO DYSPEPSIA; Start 03/29/18 at 16:30 Magnesium Hydroxide (Milk Of Magnesia) 2,400 mg PRN QHS PRN PO CONSTIPATION; Start 03/29/18 at 16:30 Albuterol Sulfate (Ventolin Hfa) 1 puff PRN Q6HRS PRN INH SHORTNESS OF BREATH; Start 03/29/18 at 17:00; Status UNV Atorvastatin Calcium (Lipitor) 20 mg QHS PO Last administered on 03/29/18at 20:09 ; Start 03/29/18 at 21:00 Vitamin D (Vitamin D3) 50,000 unit WEEKLY PO ; Start 04/03/18 at 09:00 Cyanocobalamin (Vitamin B-12) 1,000 mcg DAILY PO ; Start 03/30/18 at 09:00 Diclofenac Sodium (Voltaren) 1 evan PRN Q12HR PRN TP PAIN; Start 03/29/18 at 17: 00 Al Hydroxide/Mg Hydroxide (Mylanta Plus Xs) 15 ml PRN Q6HRS PRN PO DYSPEPSIA; Start 03/29/18 at 17:00; Status Cancel Multivitamins/ Calcium (Thera-M Plus) 1 tab DAILY PO ; Start 03/30/18 at 09:00 Lactobacillus Rhamnosus (Culturelle) 1 cap BID PO Last administered on at 20:09; Start 03/29/18 at 21:00 Senna/Docusate Sodium (Senna Plus) 1 tab BID PO Last administered on 03/29/18at 20:09; Start 03/29/18 at 21:00 Acetaminophen (Tylenol) 500 mg PRN Q4HRS PRN PO PAIN / TEMP; Start 03/29/18 at 17:45 Amlodipine Besylate (Norvasc) 5 mg DAILY PO ; Start 03/30/18 at 09:00 Aspirin (Aspirin Enteric Coated) 81 mg DAILY PO ; Start 03/30/18 at 09:00 Bisacodyl (Dulcolax Supp) 10 mg PRN DAILY PRN [place] CONSTIPATION; Start 03/29/18 at 17:45 Carvedilol (Coreg) 12.5 mg BIDWMEALS PO ; Start 03/30/18 at 08:00 Multivit/Ca Carb/ B Cmplx/FA/Prenat (Nephro-Vikram) 1 tab PRN DAILY PRN PO SUPPLEMENT; Start 03/30/18 at 09:00 Loperamide HCl (Imodium) 2 mg PRN Q2HR PRN PO DIARRHEA; Start 03/29/18 at 17:45 Non-Formulary Medication (Magnesium Hydroxide (Milk Of Magnesia)) 30 ml PRN QHS PRN PO CONSTIPATION; Start 03/29/18 at 17:00; Status UNV Memantine (Namenda) 10 mg BID PO Last administered on 03/29/18at 20:09; Start 03/29/18 at 21:00 Potassium Chloride (Klor-Con) 20 meq 3X/WEEK PO ; Start 03/31/18 at 09:00 Artificial Tears (Artificial Tears) 2 drop PRN QID PRN OU DRY EYE; Start at 18:00 Rivastigmine (Exelon) 1 patch DAILY TD ; Start 03/30/18 at 09:00 Sodium Chloride (Saline Mist Nasal) 1 evan PRN TID PRN NS NASAL CONGESTION; Start 03/29/18 at 18:00 Warfarin Sodium (Coumadin) 3 mg DAILY16 PO Last administered on 03/29/18at 19:34 ; Start 03/29/18 at 18:00 Ondansetron HCl (Zofran Odt) 4 mg PRN Q4HRS PRN PO NAUSEA/VOMITING; Start at 17:30 Albuterol Sulfate (Ventolin) 2.5 mg PRN Q6HRS PRN NEB SHORTNESS OF BREATH; Start 03/29/18 at 18:00 Warfarin Sodium (Coumadin Per Physician) 1 each PRN DAILY PRN MC SEE COMMENTS; Start 03/29/18 at 18:00 Olanzapine (ZyPREXA ZYDIS) 2.5 mg PRN Q2HR PRN PO PSYCHOSIS; Start 03/29/18 at 19:15 Cefpodoxime Proxetil (Vantin) 100 mg BID PO Last administered on 03/29/18at 20:09 ; Start 03/29/18 at 21:00; Stop 04/05/18 at 23:00 Active Scripts Active Coumadin (Warfarin Sodium) 3 Mg Tablet 1 Tab PO DAILY Coreg (Carvedilol) 12.5 Mg Tablet 1 Tab PO BID Reported Vitamin D3 (Cholecalciferol (Vitamin D3)) 50,000 Unit Capsule 50,000 Unit PO WEEKLY Vitamin B-12 (Cyanocobalamin (Vitamin B-12)) 1,000 Mcg Tablet 1,000 Mcg PO DAILY Probiotic (Saccharomyces Boulardii) 250 Mg Capsule 250 Mg PO DAILY Norvasc (Amlodipine Besylate) 5 Mg Tablet 5 Mg PO DAILY Nephro-Vikram Tablet (Folic Acid/Vitamin B Comp W-C) 0.8 Mg Tablet 1 Tab PO DAILY PRN EXELON 9.5mg/24hr (Rivastigmine) 1 Each Patch.td24 1 Patch TD DAILY Saline Nasal [place] (Sodium Chloride) 30 Ml [place] 30 Ml NS TID Mag-Al Plus Xs Suspension (Mag Hydrox/Al Hydrox/Simeth) 30 Ml Oral.susp 15 Ml PO PRN Q6HRS PRN Potassium Chloride Oral Liquid (Potassium Chloride) 20 Meq/15 Ml Liquid 20 Meq PO 3X/WEEK Administer on Thursday, Thursday and Thursday Thera-M Tablet (Multivits,Ca,Minerals/Iron/Fa) 1 Each Tablet 1 Tab PO DAILY Namenda (Memantine Hcl) 5 Mg Tablet 10 Mg PO BID Voltaren (Diclofenac Sodium) 100 Gm Gel..gram. 1 Evan TP PRN Q12HR PRN Systane 0.3-0.4% Eye Drops (Propylene Glycol/Peg 400) 15 Ml Drops 2 Drop OU PRN QID PRN Senokot-S Tablet (Sennosides/Docusate Sodium) 1 Each Tablet 1 Tab PO BID Milk Of Magnesia (Magnesium Hydroxide) 2,400 Mg/10 Ml Oral.susp 30 Ml PO PRN QHS PRN Imodium A-D (Loperamide Hcl) 1 Mg/7.5 Ml Liquid 2 Mg PO PRN Q2HR PRN Max dose of 16mg in 24 hours Dulcolax (Bisacodyl) 10 Mg Supp.rect 10 Mg RC PRN DAILY PRN Atorvastatin Calcium 20 Mg Tablet 20 Mg PO QHS Aspir-Low (Aspirin) 81 Mg Tablet.dr 81 Mg PO DAILY Proair Hfa Inhaler (Albuterol Sulfate) 8.5 Gm Hfa.aer.ad 1 Puff INH PRN Q6HRS PRN Acetaminophen 500 Mg Tablet 500 Mg PO PRN Q4HRS PRN NTE 3000mg APAP in 24 hours from all sources I have reviewed the current psychotropics carefully including drug interactions. Risk benefit ratio favors no change other than as noted in my dictated progress note. Diagnosis: Problems: (1) Agitation (2) Acute ischemic stroke (3) Syncope (4) Hemiplegia affecting left nondominant side (5) TIA (transient ischemic attack) (6) Hypertension (7) Anxiety disorder (8) Dementia, vascular, with delusions (9) Dementia, vascular, with depression (10) Impulse control disorder (11) Acute kidney injury DEAN GARDNER MD Mar 29, 2018 20:53
--- NOTE | 2018-03-29 21:52 | HP ---
ADMIT DATE: 03/29/2018 This note covers elements not covered in my initial note of 03/29/2018. The patient was seen on rounds evening of 03/29/2018. IDENTIFYING DATA: The patient is a 67-year-old -Marshallese male who is referred to us from the ICU at [facility] by Dr. Pennington after he was medically stabilized for his atrial fibrillation, which was of new onset. He was initially referred to us from [facility] in [place], [place] on account of increasing agitation, psychotic symptoms, aggression and failure of outpatient psychiatric interventions. When he arrived at the ER, he was found to be in atrial fibrillation, admitted to the ICU. He has been medically stabilized, felt to be medically stable, continued to be confused with intermittent hallucinations, mood lability and referred for inpatient psychiatric stabilization. I had seen him in the ICU for a psychiatric consult and followed him there. CHIEF COMPLAINT: "I'm okay." HISTORY OF PRESENT ILLNESS: The patient has a history of dementia, Alzheimer's, vascular type. He has been residing at the [facility] for some time and I have seen him there. Over the recent past, he had appeared intermittently more confused, psychotic, hallucinating, aggressive, disruptive. This is what prompted the initial referral to us. He has had sleep and appetite changes. No clear history of bipolar disorder, suicidal or homicidal ideation. The patient is being admitted by his DPOA. PAST PSYCHIATRIC HISTORY: As above. MEDICAL HISTORY: Positive for new onset atrial fibrillation with rapid ventricular response for which he was treated on a Cardizem drip in the ICU. History of hypertension, hyperlipidemia, CHF, right-sided cerebrovascular accident with left hemiplegia, muscle weakness, anxiety. DRUG ALLERGIES: Negative. FAMILY HISTORY: Noncontributory. SOCIAL HISTORY: The patient resides at the [facility]. He is an ex-smoker, ex-alcohol drinker, quit 3 years ago. No physical, sexual or elder abuse history is noted. Not known to be a perpetrator. REACTION TO HOSPITALIZATION: The patient is oblivious of this assets, supportive living at the residential. MENTAL STATUS EXAMINATION: The patient is oriented to himself, otherwise pleasant, verbal, smiling. Ambulation impaired. Insight, judgment, recent and remote memory, attention, concentration, fund of knowledge poor, consistent with his diagnosis. IMPRESSION: Major neurocognitive disorder, Alzheimer, vascular with delusion, depression, behavioral disturbance; anxiety disorder, unspecified; impulse control disorder, unspecified. Rest as above. The patient also appears to have a UTI, we will defer to Dr. Pennington in addition to his new onset atrial fibrillation with RVR. TREATMENT PLAN: Admit to Geropsychiatry Unit at [facility]. I will see the patient daily individually from a psychiatric standpoint, continue his current psychotropics. I have reviewed the EMRAD. Observe the patient's baseline, treat the UTI, make further adjustments as clinically indicated. MAN Beny GARDNER MD DR: DAMIEN/rose JOB#: [id number] / [id number]
--- NOTE | 2018-03-29 23:33 | NUR ---
Behavior Intervention Response and Plan: BIRP Note: Behavior: Assumed Care of patient, patient located in Hallway at shift change. Patient exhibited the following behavior Calm, Able to Focus on Task, Delusions. Brief assessment on rounds of vital signs, medication needs, lab studies, and pain. Treatment plan problems . Intervention: Patient assessed and the following interventions initiated safety checks 15 Minute Checks Head to toe Assessment , Cognitive Assessment , Medications. Response: After interactions and interventions patient responded in the following manner, Compliant , Cooperative ,Delusions. Continue to assess behaviors and condition will continue to monitor throughout the shift as needed. Patient educated on ADL's, and hand hygiene. Plan: Continue to monitor Master Treatment Plan for patient's progress toward short term goals of Improved Mood, Decreased Agitation, intermission coordinator goals to return to previous living setting vs placement. Continue to assess patient for changes in above assessment. Monitor for medication needs, pain, and safety concerns. Hourly rounding performed to ensure safe environment.
--- NOTE | 2018-03-30 07:10 | NUR ---
Patient is in the isolation cabrera, repeatedly calling out. When asked what he wanted, he states that someone stole his orange leather coat with brown buttons. Patient not redirectable, refuses to believe that he is in hospital, insists [place]. PRN meds provided per eMAR.
[2018-03-30] MEDS ORDERED: FOLIC/VIT B COMP W-C (RENAL) TABLET. PO PRN (09:00)
--- NOTE | 2018-03-30 09:01 | NUR ---
Psychosocial Assessment completed at previous admit on 10/2015. SW met w/PT. to complete Psychosocial Assessment. Pt. born and raised in [place]. Pt. has 3 siblings: Anthony Gregory, Pt, Raffaele. Pt's oldest brother has a past w/alcohol use. No other family has a Dementia, MHI or alcohol or substance abuse history. Pt. graduated HS and joined the [employer] for 2 years. He has 3 children: Finesse, KINGSLEY, and 3rd child w/ex named Trevon. Pt. met and Gianna in 1982 and some time in the late ? 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 Pt. has no history of alcohol or substance abuse. Pt. suffers from 2 strokes w/some impairment on his Left side. Pt. has resided at [facility] since February 2015. Pt. has no reported history of self harm or SI. Pt has a previous admit to this facility in 10/2015 for aggression and agitation, throwing objects. Pt's reason for this admit is the same. GOALS: Pt states he is ready to go home. 1. Family support 2. community support
--- NOTE | 2018-03-30 09:16 | NUR ---
SW reviewed pt's insurance upon admit. Pt has Medicare part A, B and no part C. Pt has [facility] Medicaid secondary. No auth required.
[2018-03-30] MEDS: LACTOBACILLUS RHAMNOSUS GG 1 CAPSULE. PO SCH ×2 (10:29→19:33)
[2018-03-30] MEDS: CEFPODOXIME PROXETIL 100 MG TABLET PO SCH ×2 (10:30→19:33)
[2018-03-30] MEDS: MEMANTINE 10 MG TABLET. PO SCH ×2 (10:30→19:33)
[2018-03-30] MEDS: SENNOSIDES/DOCUSATE 8.6/50MG TABLET. PO SCH ×2 (10:30→19:33)
[2018-03-30] MEDS: CYANOCOBALAMIN (VITAMIN B-12) 1,000 MCG TABLET. PO SCH (10:39)
[2018-03-30] MEDS: MULTIVITAMIN with MINERAL TABLET. PO SCH (10:39)
[2018-03-30] MEDS: RIVASTIGMINE 9.5MG PATCH. TD SCH (10:40)
[2018-03-30] MEDS: ASPIRIN ENTERIC COATED 81 MG TABLET.DR. PO SCH (10:40)
[2018-03-30] MEDS: CARVEDILOL 12.5 MG TABLET PO SCH ×2 (10:40→16:44)
[2018-03-30] MEDS: amLODIPine BESYLATE 5 MG TABLET PO SCH (10:40)
--- NOTE | 2018-03-30 14:00 | NUR ---
Activity Therapy Assessment: Patient was awake, aware, and able to answer questions during the assessment. Patient was able to remember his past, present, and family. Patient was neatly groomed and had on clean clothes during the assessment. Patient uses a wheelchair to ambulate and will need help with some ADLs. Patients frustration and impulses were all under control during the assessment. Initial Goals: To engage in 5 groups per week that will increase his time management and recreation education. Addendum: 04/22/18 at 1115 by DWAYNE COLLINS ACT Goal changed 04/22/2018: Pt. will engage fully in five groups per week.
--- NOTE | 2018-03-30 14:42 | NUR ---
Behavior Intervention Response and Plan: BIRP Note: Behavior: Assumed Care of patient, patient located in Hallway at shift change. Patient exhibited the following behavior Calm, Able to Focus on Task, Delusions. Brief assessment on rounds of vital signs, medication needs, lab studies, and pain. Treatment plan problems . Intervention: Patient assessed and the following interventions initiated safety checks 15 Minute Checks Head to toe Assessment , Cognitive Assessment , Medications. Response: After interactions and interventions patient responded in the following manner, Compliant , interactive ,Delusions. Continue to assess behaviors and condition will continue to monitor throughout the shift as needed. Patient educated on ADL's, and hand hygiene. Plan: Continue to monitor Master Treatment Plan for patient's progress toward short term goals of Improved Mood, Decreased Agitation, terminal superintendent goals to return to previous living setting vs placement. Continue to assess patient for changes in above assessment. Monitor for medication needs, pain, and safety concerns. Hourly rounding performed to ensure safe environment.
[2018-03-30] MEDS ORDERED: amLODIPine BESYLATE 5 MG TABLET PO PRN (15:30)
[2018-03-30] MEDS: WARFARIN 3 MG TABLET. PO SCH (16:46)
[2018-03-30 16:58] VITALS: BP 181/92
[2018-03-30] MEDS ORDERED: CARVEDILOL 12.5 MG TABLET PO ONE (18:00)
--- NOTE | 2018-03-30 18:26 | NUR ---
Patient bp taken by crayon grader @ 1530 was 184/92. Dr Pennington notified and gave verbal orders to administer prn 5mg amlodipine. This nurse administered prn@1545. Bp reassessed @1645 with a reading of 192/98. Scheduled 12.5 coreg given @ 1650. Bp reassessed @1745 with a reading of 196/103. Dr Pennington notified and gave verbal orders to give a one time 12.5mg coreg dose. Will continue to monitor.
--- NOTE | 2018-03-30 18:56 | NUR ---
Reassessed bp @1645 with a 146/78 reading.
[2018-03-30] MEDS: ATORVASTATIN CALCIUM 20 MG TABLET PO SCH (19:33)
--- NOTE | 2018-03-30 20:56 | PDOC ---
Exam Note: [place] Note: Please also refer to the separate dictated note~for this date of service dictated separately.~Patient seen individually. Discussed the patient with Nursing staff reviewed the chart.~Reviewed interim history and current functioning. Reviewed vital signs,~Labs/ Radiology~and current medications noted below. Continue current treatment with the changes noted in the dictated addendum note Assessment: Vital Signs: Vital Signs Date Time Temp Pulse Resp B/P (MAP) Pulse Ox O2 Delivery O2 Flow Rate FiO2 03/30/18 18:05 73 196/103 03/30/18 16:58 97.0 18 94 03/29/18 16:42 Room Air I&O Intake and Output 03/30/18 07:00 Intake Total 600 ml Balance 600 ml Intake Oral 600 ml Current Medications: Meds: Current Medications Acetaminophen (Tylenol) 650 mg PRN Q6HRS PRN PO PAIN / TEMP; Start 03/29/18 at 16:30; Status Cancel Multi-Ingredient Ointment (Analgesic [place]) 1 evan PRN QID PRN TP MUSCLE PAIN; Start 03/29/18 at 16:30 Al Hydroxide/Mg Hydroxide (Mylanta Plus Xs) 15 ml PRN AFTMEALHC PRN PO DYSPEPSIA; Start 03/29/18 at 16:30 Magnesium Hydroxide (Milk Of Magnesia) 2,400 mg PRN QHS PRN PO CONSTIPATION; Start 03/29/18 at 16:30 Albuterol Sulfate (Ventolin Hfa) 1 puff PRN Q6HRS PRN INH SHORTNESS OF BREATH; Start 03/29/18 at 17:00; Status UNV Atorvastatin Calcium (Lipitor) 20 mg QHS PO Last administered on 03/30/18at 19:33 ; Start 03/29/18 at 21:00 Vitamin D (Vitamin D3) 50,000 unit WEEKLY PO ; Start 04/03/18 at 09:00 Cyanocobalamin (Vitamin B-12) 1,000 mcg DAILY PO Last administered on 03/30/18at 10:39; Start 03/30/18 at 09:00 Diclofenac Sodium (Voltaren) 1 evan PRN Q12HR PRN TP PAIN; Start 03/29/18 at 17: 00 Al Hydroxide/Mg Hydroxide (Mylanta Plus Xs) 15 ml PRN Q6HRS PRN PO DYSPEPSIA; Start 03/29/18 at 17:00; Status Cancel Multivitamins/ Calcium (Thera-M Plus) 1 tab DAILY PO Last administered on 10:39; Start 03/30/18 at 09:00 Lactobacillus Rhamnosus (Culturelle) 1 cap BID PO Last administered on 19:33; Start 03/29/18 at 21:00 Senna/Docusate Sodium (Senna Plus) 1 tab BID PO Last administered on 03/30/18 19:33; Start 03/29/18 at 21:00 Acetaminophen (Tylenol) 500 mg PRN Q4HRS PRN PO PAIN / TEMP; Start 03/29/18 at 17:45 Amlodipine Besylate (Norvasc) 5 mg DAILY PO Last administered on 03/30/18 10:40 ; Start 03/30/18 at 09:00 Aspirin (Aspirin Enteric Coated) 81 mg DAILY PO Last administered on 03/30/18 10:40; Start 03/30/18 at 09:00 Bisacodyl (Dulcolax Supp) 10 mg PRN DAILY PRN VT CONSTIPATION; Start 03/29/18 at 17:45 Carvedilol (Coreg) 12.5 mg BIDWMEALS PO Last administered on 03/30/18 16:44; Start 03/30/18 at 08:00; Stop 03/30/18 at 17:57; Status DC Multivit/Ca Carb/ B Cmplx/FA/Prenat (Nephro-Vikram) 1 tab PRN DAILY PRN PO SUPPLEMENT; Start 03/30/18 at 09:00 Loperamide HCl (Imodium) 2 mg PRN Q2HR PRN PO DIARRHEA; Start 03/29/18 at 17:45 Non-Formulary Medication (Magnesium Hydroxide (Milk Of Magnesia)) 30 ml PRN QHS PRN PO CONSTIPATION; Start 03/29/18 at 17:00; Status UNV Memantine (Namenda) 10 mg BID PO Last administered on 03/30/18 19:33; Start 03/29/18 at 21:00 Potassium Chloride (Klor-Con) 20 meq 3X/WEEK PO ; Start 03/31/18 at 09:00 Artificial Tears (Artificial Tears) 2 drop PRN QID PRN OU DRY EYE; Start at 18:00 Rivastigmine (Exelon) 1 patch DAILY TD Last administered on 03/30/18at 10:40; Start 03/30/18 at 09:00 Sodium Chloride (Saline Mist Nasal) 1 evan PRN TID PRN NS NASAL CONGESTION; Start 03/29/18 at 18:00 Warfarin Sodium (Coumadin) 3 mg DAILY16 PO Last administered on 03/30/18at 16:46 ; Start 03/29/18 at 18:00 Ondansetron HCl (Zofran Odt) 4 mg PRN Q4HRS PRN PO NAUSEA/VOMITING; Start at 17:30 Albuterol Sulfate (Ventolin) 2.5 mg PRN Q6HRS PRN NEB SHORTNESS OF BREATH; Start 03/29/18 at 18:00 Warfarin Sodium (Coumadin Per Physician) 1 each PRN DAILY PRN MC SEE COMMENTS; Start 03/29/18 at 18:00 Olanzapine (ZyPREXA ZYDIS) 2.5 mg PRN Q2HR PRN PO PSYCHOSIS Last administered on 03/30/18at 19:34; Start 03/29/18 at 19:15 Cefpodoxime Proxetil (Vantin) 100 mg BID PO Last administered on 03/30/18at 19:33 ; Start 03/29/18 at 21:00; Stop 04/05/18 at 23:00 Amlodipine Besylate (Norvasc) 5 mg BID PRN PO ELEVATED BP, SEE COMMENTS Last administered on 03/30/18at 15:29; Start 03/30/18 at 15:30 Carvedilol (Coreg) 12.5 mg 1X ONCE PO Last administered on 03/30/18at 18:05; Start 03/30/18 at 18:00; Stop 03/30/18 at 18:01; Status DC Carvedilol (Coreg) 25 mg BIDWMEALS PO ; Start 03/31/18 at 08:00 Active Scripts Active Coumadin (Warfarin Sodium) 3 Mg Tablet 1 Tab PO DAILY Coreg (Carvedilol) 12.5 Mg Tablet 1 Tab PO BID Reported Vitamin D3 (Cholecalciferol (Vitamin D3)) 50,000 Unit Capsule 50,000 Unit PO WEEKLY Vitamin B-12 (Cyanocobalamin (Vitamin B-12)) 1,000 Mcg Tablet 1,000 Mcg PO DAILY Probiotic (Saccharomyces Boulardii) 250 Mg Capsule 250 Mg PO DAILY Norvasc (Amlodipine Besylate) 5 Mg Tablet 5 Mg PO DAILY Nephro-Vikram Tablet (Folic Acid/Vitamin B Comp W-C) 0.8 Mg Tablet 1 Tab PO DAILY PRN EXELON 9.5mg/24hr (Rivastigmine) 1 Each Patch.td24 1 Patch TD DAILY Saline Nasal [place] (Sodium Chloride) 30 Ml [place] 30 Ml NS TID Mag-Al Plus Xs Suspension (Mag Hydrox/Al Hydrox/Simeth) 30 Ml Oral.susp 15 Ml PO PRN Q6HRS PRN Potassium Chloride Oral Liquid (Potassium Chloride) 20 Meq/15 Ml Liquid 20 Meq PO 3X/WEEK Administer on Thursday, Thursday and Thursday Thera-M Tablet (Multivits,Ca,Minerals/Iron/Fa) 1 Each Tablet 1 Tab PO DAILY Namenda (Memantine Hcl) 5 Mg Tablet 10 Mg PO BID Voltaren (Diclofenac Sodium) 100 Gm Gel..gram. 1 Evan TP PRN Q12HR PRN Systane 0.3-0.4% Eye Drops (Propylene Glycol/Peg 400) 15 Ml Drops 2 Drop OU PRN QID PRN Senokot-S Tablet (Sennosides/Docusate Sodium) 1 Each Tablet 1 Tab PO BID Milk Of Magnesia (Magnesium Hydroxide) 2,400 Mg/10 Ml Oral.susp 30 Ml PO PRN QHS PRN Imodium A-D (Loperamide Hcl) 1 Mg/7.5 Ml Liquid 2 Mg PO PRN Q2HR PRN Max dose of 16mg in 24 hours Dulcolax (Bisacodyl) 10 Mg Supp.rect 10 Mg RC PRN DAILY PRN Atorvastatin Calcium 20 Mg Tablet 20 Mg PO QHS Aspir-Low (Aspirin) 81 Mg Tablet.dr 81 Mg PO DAILY Proair Hfa Inhaler (Albuterol Sulfate) 8.5 Gm Hfa.aer.ad 1 Puff INH PRN Q6HRS PRN Acetaminophen 500 Mg Tablet 500 Mg PO PRN Q4HRS PRN NTE 3000mg APAP in 24 hours from all sources I have reviewed the current psychotropics carefully including drug interactions. Risk benefit ratio favors no change other than as noted in my dictated progress note. Diagnosis: Problems: (1) Agitation (2) Acute ischemic stroke (3) Syncope (4) Hemiplegia affecting left nondominant side (5) TIA (transient ischemic attack) (6) Hypertension (7) Anxiety disorder (8) Dementia, vascular, with delusions (9) Dementia, vascular, with depression (10) Impulse control disorder (11) Acute kidney injury DEAN GARDNER MD Mar 30, 2018 20:56
--- NOTE | 2018-03-30 21:28 | NUR ---
Nursing note: Assumed care of pt in [facility]. Pt very agitated r/t hallucinations of seeing snakes all around the unit. Unable to redirect even after taking pt out to the payti Addendum: 03/30/18 at 2131 by DHARMESH DE LA CRUZ RN continue prev note. Taking pt to patio. Pt very fearful, yelling, non-compliant w/meds assessment at this time.
--- NOTE | 2018-03-30 22:52 | CONS ---
DATE OF CONSULTATION: 03/30/2018 REASON FOR CONSULTATION: Medical management. HISTORY OF PRESENT ILLNESS: The patient is a 67-year-old -[place] male patient who is a resident at [facility], who was seen initially at the Emergency Room with a plan to admit him to [facility] on the account because of increasing agitation, psychotic symptoms, aggression and failure to outpatient psychiatric intervention. When he arrived to the Emergency Room, he was found to be in atrial fibrillation, was admitted to the ICU where he was treated with verapamil and his heart rate converted to sinus rhythm. However, the patient continued to be confused and with intermittent hallucination, and therefore, he was admitted to [facility] for inpatient psychiatric stabilization. PAST MEDICAL HISTORY: Significant for hypertension, hyperlipidemia, congestive heart failure, right middle cerebral artery territory infarct, left-sided hemiplegia, muscle weakness and anxiety and also a new onset paroxysmal atrial fibrillation. PAST SURGICAL HISTORY: Unremarkable. FAMILY HISTORY: Unremarkable. SOCIAL HISTORY: He is a resident at [facility]. He is apparently from his . According to him, she lives in [place] and has 3 sons, the youngest is 14 years old. He is an ex-smoker and ex-alcohol drinker, quit 3 years ago. ALLERGIES: He has no known drug allergies. MEDICATIONS: He is currently on following medications: He is on rivastigmine, Exelon 9.5 mg transdermal patch daily. Albuterol sulfate 1 puff every 6 hours. He is on warfarin 3 mg daily, atorvastatin calcium 20 mg at bedtime, carvedilol 12.5 mg twice a day, amlodipine besylate 5 mg once a day, aspirin 81 mg once a day, diclofenac sodium for Voltaren gel twice a day, Tylenol 500 mg every 4 hours, Namenda 10 mg twice a day. He is on potassium chloride 20 mEq in 15 mL liquid 3 times a week. He is on Systane eye drops 2 drops to both eyes 4 times a day as needed. He is on saline nasal spray to both nostrils 3 times a day, Mylanta 15 mL every 6 hours, loperamide 2 mg every 2 hours as needed for diarrhea, bisacodyl for Dulcolax 10 mg rectally daily as needed for constipation, milk of magnesia 30 mL p.o. daily p.r.n. for constipation, Senna-S 1 tablet twice a day, saccharomyces boulardii 250 mg daily, Cyanocobalamin 1000 mcg p.o. daily, Nephro-Vikram 1 tablet once a day, cholecalciferol 50,000 international units once a week, multivitamin 1 tablet once a day. REVIEW OF SYSTEMS: As per history of present illness. PHYSICAL EXAMINATION GENERAL: When I examined him today, he was sitting comfortably in his wheelchair, in no apparent distress. He was pale, but no jaundice or cyanosis. No lymphadenopathy, no thyromegaly. No jugular venous distention. He has left lower extremity is more swollen than his right lower extremity. VITAL SIGNS: Heart rate was 68, blood pressure 143/78, temperature was 97.5, respiratory rate was 18 and oxygen saturation was 98%. HEAD, EYES, EARS, NOSE AND THROAT: Normocephalic, atraumatic. HEART: Showed normal first and second sounds. No gallop, rub or murmur. CHEST: Clear to auscultation. No crepitation or rhonchi. ABDOMEN: Distended, soft, nontender. No guarding or rigidity. No organomegaly. All hernial orifices intact. Bowel sounds normal. NEUROLOGIC: He is awake, alert, responding appropriately. Cranial nerves are intact. He has left-sided hemiplegia with fixed flexion contraction of his left upper extremity. Left lower extremity is definitely more swollen than his right. LABORATORY DATA: As of yesterday, his white cell count was 5700, hemoglobin 11, hematocrit 33, MCV 92, and platelet count 115,000. His chemistry showed a serum sodium 142, potassium 3.6, chloride 108, bicarbonate 26, anion gap of 8, BUN 27, creatinine 1.4, estimated GFR was 61 mL per minute. His glucose 136. Calcium was 8.2. IMPRESSION: In summary, this is a 67-year-old male patient who was admitted to [facility] on account of being more confused, psychotic, hallucinating, aggressive, disruptive. He has no clear history of bipolar disorder, suicidal and homicidal ideation, and was admitted here for inpatient psychiatric stabilization. Initially, he was found to be in atrial fibrillation with rapid ventricular response and was admitted to the ICU where he converted to normal sinus rhythm after receiving verapamil. Has multiple medical problems including hypertension, hyperlipidemia, right middle cerebral artery territory infarct with left-sided hemiplegia. He has muscle weakness and anxiety and atrial fibrillation with rapid ventricular response that has responded to treatment. Today, the patient seems to be generally medically stable. PLAN: My plan is to repeat all his labs tomorrow including his PT/INR to make sure he is fully anticoagulated. We will monitor his heart rate, and if it accelerates, we will probably increase his Coreg. Thank you Dr. Crystal for allowing me to participate in the care of this patient. INDER MIRELES MD DR: ANTOINETTE/rose JOB#: [id number] / [id number]
[2018-03-31 06:37] VITALS: BP 149/83
[2018-03-31] MEDS: SENNOSIDES/DOCUSATE 8.6/50MG TABLET. PO SCH ×3 (08:04→20:59)
[2018-03-31] MEDS: CEFPODOXIME PROXETIL 100 MG TABLET PO SCH ×3 (08:04→20:59)
[2018-03-31] MEDS: ASPIRIN ENTERIC COATED 81 MG TABLET.DR. PO SCH (08:04)
[2018-03-31] MEDS: LACTOBACILLUS RHAMNOSUS GG 1 CAPSULE. PO SCH ×3 (08:05→20:59)
[2018-03-31] MEDS: MEMANTINE 10 MG TABLET. PO SCH ×3 (08:05→20:59)
[2018-03-31] MEDS: RIVASTIGMINE 9.5MG PATCH. TD SCH (08:05)
[2018-03-31] MEDS: MULTIVITAMIN with MINERAL TABLET. PO SCH (08:05)
[2018-03-31] MEDS: amLODIPine BESYLATE 5 MG TABLET PO SCH (08:05)
[2018-03-31] MEDS: CYANOCOBALAMIN (VITAMIN B-12) 1,000 MCG TABLET. PO SCH (08:05)
[2018-03-31] MEDS: CARVEDILOL 12.5 MG TABLET PO SCH ×2 (08:15→15:45)
[2018-03-31] MEDS: POTASSIUM CHLORIDE 20 MEQ TABLET.ER. PO SCH (09:32)
[2018-03-31 09:34] LABS: HEMATOCRIT 35.8 % (39.0-53.0); RED BLOOD COUNT 3.91 x10^6/uL (4.30-5.70); RED CELL DISTRIBUTION WIDTH 13.5 % (11.5-14.5)
[2018-03-31 09:50] LABS: ALBUMIN 3.2 g/dL (3.4-5.0); ALBUMIN/GLOBULIN RATIO 0.8 (1.0-1.7); CREATININE 1.6 mg/dL (0.7-1.3); GFR 52.3; POTASSIUM 3.8 mmol/L (3.5-5.1); TOTAL BILIRUBIN 0.6 mg/dL (0.2-1.0)
--- NOTE | 2018-03-31 10:01 | NUR ---
Nursing Note: Behavior Pt agitated; seeing "blacksnakes with large teeth" coming through the floor and ceiling. Pt stated, "I don't know why anyone would do this to me? I have children. [place]. I lived in [facility]" Unable to redirect pt. PRN Miracle Means given. Will continue to monitor.
--- NOTE | 2018-03-31 11:30 | NUR ---
Nursing Note: Pt stated that he thinks his family, specifically his brother and sister, sent snakes to kill him for a 200,000 insurance policy that he has. Unable to convince pt differently.
--- NOTE | 2018-03-31 11:31 | PN ---
DATE: 03/30/2018 This late entry, 03/30/2018, covers elements not covered in my initial note of 03/30/2018. SUBJECTIVE: I met with the patient in the evening. The patient was yelling in the morning, quite labile, anxious, and confused. Later in the day, he was more compliant. He is quite hypertensive in the evening. We will defer to Dr. Pennington. REVIEW OF SYSTEMS: Ambulation impaired, in wheelchair. No CV, , pulmonary, eye, ENT system symptoms on review. Reliability poor. MENTAL STATUS EXAM: Oriented to himself. Insight, judgment, recent and remote memory, attention, concentration, fund of knowledge poor, consistent with his diagnosis mentioned in my initial note. IMPRESSION: Major neurocognitive disorder, Alzheimer, vascular with delusion; depression; behavioral disturbance. Rest unchanged. He does have urinary tract infection. PLAN: Continue psychotropics from initial note. MAN Beny GARDNER MD DR: DAMIEN/rose JOB#: [id number] / [id number]
--- NOTE | 2018-03-31 15:00 | NUR ---
Behavior Intervention Response and Plan: BIRP Note: Behavior: Assumed Care of patient, patient located in Dining Room at shift change. Patient exhibited the following behavior Compliant, Agitated, Restless. Brief assessment on rounds of vital signs, medication needs, lab studies, and pain. Treatment plan problems alteration in mood and fall risk. Intervention: Patient assessed and the following interventions initiated safety checks 15 Minute Checks Head to toe Assessment , Cognitive Assessment , Medications. Response: After interactions and interventions patient responded in the following manner, Anxious , Resistive ,Restless. Continue to assess behaviors and condition will continue to monitor throughout the shift as needed. Patient educated on ADL's, and hand hygiene. 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 Continue to assess patient for changes in above assessment. Monitor for medication needs, pain, and safety concerns. Hourly rounding performed to ensure safe environment.
--- NOTE | 2018-03-31 15:00 | NUR ---
WEEKLY THERAPEUTIC RECREATION NOTE Date of Admission: 03/29/2018 Date of AT Assessment: 03/30/2018 Goal aimed: Pt will increase his time management and recreation education. Initial goal: Pt will engage in 5 groups per week. Weekly progress towards goal: on track Group participation level: Minimal Behaviors observed: Confused- asks questions, spends most time in hallway, alone, little interest in groups Plan: No change to goal
[2018-03-31] MEDS: WARFARIN 3 MG TABLET. PO SCH (15:44)
--- NOTE | 2018-03-31 15:50 | NUR ---
Nursing Note: Pt sitting on the patio listening to music and talking with [place], activity therapist, and peers.
[2018-03-31 16:19] VITALS: BP 145/85
--- NOTE | 2018-03-31 16:30 | NUR ---
Nursing Note: Pt's brother Raffaele called to check on pt and to verify visiting hours.
--- NOTE | 2018-03-31 17:23 | NUR ---
Nursing Note: Behavior Pt yelling, agitated, and paranoid again thinking snakes are every where and that he is being held captive. Unable to redirect pt. Pt placed in [facility] d/t upsetting other patients. PRN given, will continue to monitor.
[2018-03-31] MEDS ORDERED: QUEtiapine 25 MG TABLET. PO ONE (18:15)
[2018-03-31] MEDS: ATORVASTATIN CALCIUM 20 MG TABLET PO SCH (19:08)
--- NOTE | 2018-03-31 20:16 | NUR ---
Nursing note: Assumed care of pt in hallway, sitting quietly. Pt refused to take meds stating they will not help him. Unable to convince that I am trying to help him, compliant w/assessment. Will attempt med pass again.
--- NOTE | 2018-03-31 20:50 | PDOC ---
Exam Note: [place] Note: Please also refer to the separate dictated note~for this date of service dictated separately.~Patient seen individually. Discussed the patient with Nursing staff reviewed the chart.~Reviewed interim history and current functioning. Reviewed vital signs,~Labs/ Radiology~and current medications noted below. Continue current treatment with the changes noted in the dictated addendum note Assessment: Vital Signs: Vital Signs Date Time Temp Pulse Resp B/P (MAP) Pulse Ox O2 Delivery O2 Flow Rate FiO2 03/31/18 16:19 97.3 69 17 145/85 (105) 98 03/29/18 16:42 Room Air I&O Intake and Output 03/31/18 07:00 Intake Total 580 ml Balance 580 ml Intake Oral 580 ml # Voids 1 # Bowel Movements 2 Labs: Laboratory Tests Test 03/31/18 09:16 White Blood Count 6.0 x10^3/uL (4.0-11.0) Red Blood Count 3.91 x10^6/uL (4.30-5.70) L Hemoglobin 12.0 g/dL (13.0-17.5) L Hematocrit 35.8 % (39.0-53.0) L Mean Corpuscular Volume 92 fL (79-100) Mean Corpuscular Hemoglobin 31 pg (25-35) Mean Corpuscular Hemoglobin Concent 34 g/dL (31-37) Red Cell Distribution Width 13.5 % (11.5-14.5) Platelet Count 143 x10^3/uL (140-400) Prothrombin Time 13.3 SEC (9.4-11.4) H Prothrombin Time INR 1.3 (0.9-1.1) H Sodium Level 141 mmol/L (136-145) Potassium Level 3.8 mmol/L (3.5-5.1) Chloride Level 105 mmol/L (98-107) Carbon Dioxide Level 25 mmol/L (21-32) Anion Gap 11 (6-14) Blood Urea Nitrogen 32 mg/dL (8-26) H Creatinine 1.6 mg/dL (0.7-1.3) H Estimated GFR (Cockcroft-Gault) 52.3 BUN/Creatinine Ratio 20 (6-20) Glucose Level 177 mg/dL (70-99) H Calcium Level 9.0 mg/dL (8.5-10.1) Total Bilirubin 0.6 mg/dL (0.2-1.0) Aspartate Amino Transferase (AST) 34 U/L (15-37) Alanine Aminotransferase (ALT) 30 U/L (16-63) Alkaline Phosphatase 60 U/L (46-116) Total Protein 7.0 g/dL (6.4-8.2) Albumin 3.2 g/dL (3.4-5.0) L Albumin/Globulin Ratio 0.8 (1.0-1.7) L Current Medications: Meds: Current Medications Acetaminophen (Tylenol) 650 mg PRN Q6HRS PRN PO PAIN / TEMP; Start 03/29/18 at 16:30; Status Cancel Multi-Ingredient Ointment (Analgesic [place]) 1 evan PRN QID PRN TP MUSCLE PAIN; Start 03/29/18 at 16:30 Al Hydroxide/Mg Hydroxide (Mylanta Plus Xs) 15 ml PRN AFTMEALHC PRN PO DYSPEPSIA; Start 03/29/18 at 16:30 Magnesium Hydroxide (Milk Of Magnesia) 2,400 mg PRN QHS PRN PO CONSTIPATION; Start 03/29/18 at 16:30 Albuterol Sulfate (Ventolin Hfa) 1 puff PRN Q6HRS PRN INH SHORTNESS OF BREATH; Start 03/29/18 at 17:00; Status UNV Atorvastatin Calcium (Lipitor) 20 mg QHS PO Last administered on 03/31/18at 19:08 ; Start 03/29/18 at 21:00 Vitamin D (Vitamin D3) 50,000 unit WEEKLY PO ; Start 04/03/18 at 09:00 Cyanocobalamin (Vitamin B-12) 1,000 mcg DAILY PO Last administered on 03/31/18at 08:05; Start 03/30/18 at 09:00 Diclofenac Sodium (Voltaren) 1 evan PRN Q12HR PRN TP PAIN; Start 03/29/18 at 17: 00 Al Hydroxide/Mg Hydroxide (Mylanta Plus Xs) 15 ml PRN Q6HRS PRN PO DYSPEPSIA; Start 03/29/18 at 17:00; Status Cancel Multivitamins/ Calcium (Thera-M Plus) 1 tab DAILY PO Last administered on at 08:05; Start 03/30/18 at 09:00 Lactobacillus Rhamnosus (Culturelle) 1 cap BID PO Last administered on 19:08; Start 03/29/18 at 21:00 Senna/Docusate Sodium (Senna Plus) 1 tab BID PO Last administered on 03/31/18 19:08; Start 03/29/18 at 21:00 Acetaminophen (Tylenol) 500 mg PRN Q4HRS PRN PO PAIN / TEMP; Start 03/29/18 at 17:45 Amlodipine Besylate (Norvasc) 5 mg DAILY PO Last administered on 03/31/18at 08:05 ; Start 03/30/18 at 09:00 Aspirin (Aspirin Enteric Coated) 81 mg DAILY PO Last administered on 03/31/18 08:04; Start 03/30/18 at 09:00 Bisacodyl (Dulcolax Supp) 10 mg PRN DAILY PRN MD CONSTIPATION; Start 03/29/18 at 17:45 Carvedilol (Coreg) 12.5 mg BIDWMEALS PO Last administered on 03/30/18at 16:44; Start 03/30/18 at 08:00; Stop 03/30/18 at 17:57; Status DC Multivit/Ca Carb/ B Cmplx/FA/Prenat (Nephro-Vikram) 1 tab PRN DAILY PRN PO SUPPLEMENT; Start 03/30/18 at 09:00 Loperamide HCl (Imodium) 2 mg PRN Q2HR PRN PO DIARRHEA; Start 03/29/18 at 17:45 Non-Formulary Medication (Magnesium Hydroxide (Milk Of Magnesia)) 30 ml PRN QHS PRN PO CONSTIPATION; Start 03/29/18 at 17:00; Status UNV Memantine (Namenda) 10 mg BID PO Last administered on 03/31/18 19:08; Start 03/29/18 at 21:00 Potassium Chloride (Klor-Con) 20 meq 3X/WEEK PO Last administered on 03/31/18at 09:32; Start 03/31/18 at 09:00 Artificial Tears (Artificial Tears) 2 drop PRN QID PRN OU DRY EYE; Start at 18:00 Rivastigmine (Exelon) 1 patch DAILY TD Last administered on 03/31/18at 08:05; Start 03/30/18 at 09:00 Sodium Chloride (Saline Mist Nasal) 1 evan PRN TID PRN NS NASAL CONGESTION; Start 03/29/18 at 18:00 Warfarin Sodium (Coumadin) 3 mg DAILY16 PO Last administered on 03/31/18at 15:44 ; Start 03/29/18 at 18:00 Ondansetron HCl (Zofran Odt) 4 mg PRN Q4HRS PRN PO NAUSEA/VOMITING; Start at 17:30 Albuterol Sulfate (Ventolin) 2.5 mg PRN Q6HRS PRN NEB SHORTNESS OF BREATH; Start 03/29/18 at 18:00 Warfarin Sodium (Coumadin Per Physician) 1 each PRN DAILY PRN MC SEE COMMENTS; Start 03/29/18 at 18:00 Olanzapine (ZyPREXA ZYDIS) 2.5 mg PRN Q2HR PRN PO PSYCHOSIS Last administered on 03/31/18at 17:01; Start 03/29/18 at 19:15 Cefpodoxime Proxetil (Vantin) 100 mg BID PO Last administered on 03/31/18at 19:09 ; Start 03/29/18 at 21:00; Stop 04/05/18 at 23:00 Amlodipine Besylate (Norvasc) 5 mg BID PRN PO ELEVATED BP, SEE COMMENTS Last administered on 03/30/18at 15:29; Start 03/30/18 at 15:30 Carvedilol (Coreg) 12.5 mg 1X ONCE PO Last administered on 03/30/18at 18:05; Start 03/30/18 at 18:00; Stop 03/30/18 at 18:01; Status DC Carvedilol (Coreg) 25 mg BIDWMEALS PO Last administered on 03/31/18at 15:45; Start 03/31/18 at 08:00 Quetiapine Fumarate (SEROquel) 12.5 mg 1X ONCE PO Last administered on at 18:21; Start 03/31/18 at 18:15; Stop 03/31/18 at 18:18; Status DC Quetiapine Fumarate (SEROquel) 12.5 mg BID@0900,1700 PO ; Start 04/01/18 at 09:00 Active Scripts Active Coumadin (Warfarin Sodium) 3 Mg Tablet 1 Tab PO DAILY Coreg (Carvedilol) 12.5 Mg Tablet 1 Tab PO BID Reported Vitamin D3 (Cholecalciferol (Vitamin D3)) 50,000 Unit Capsule 50,000 Unit PO WEEKLY Vitamin B-12 (Cyanocobalamin (Vitamin B-12)) 1,000 Mcg Tablet 1,000 Mcg PO DAILY Probiotic (Saccharomyces Boulardii) 250 Mg Capsule 250 Mg PO DAILY Norvasc (Amlodipine Besylate) 5 Mg Tablet 5 Mg PO DAILY Nephro-Vikram Tablet (Folic Acid/Vitamin B Comp W-C) 0.8 Mg Tablet 1 Tab PO DAILY PRN EXELON 9.5mg/24hr (Rivastigmine) 1 Each Patch.td24 1 Patch TD DAILY Saline Nasal [place] (Sodium Chloride) 30 Ml [place] 30 Ml NS TID Mag-Al Plus Xs Suspension (Mag Hydrox/Al Hydrox/Simeth) 30 Ml Oral.susp 15 Ml PO PRN Q6HRS PRN Potassium Chloride Oral Liquid (Potassium Chloride) 20 Meq/15 Ml Liquid 20 Meq PO 3X/WEEK Administer on Thursday, Thursday and Thursday Thera-M Tablet (Multivits,Ca,Minerals/Iron/Fa) 1 Each Tablet 1 Tab PO DAILY Namenda (Memantine Hcl) 5 Mg Tablet 10 Mg PO BID Voltaren (Diclofenac Sodium) 100 Gm Gel..gram. 1 Evan TP PRN Q12HR PRN Systane 0.3-0.4% Eye Drops (Propylene Glycol/Peg 400) 15 Ml Drops 2 Drop OU PRN QID PRN Senokot-S Tablet (Sennosides/Docusate Sodium) 1 Each Tablet 1 Tab PO BID Milk Of Magnesia (Magnesium Hydroxide) 2,400 Mg/10 Ml Oral.susp 30 Ml PO PRN QHS PRN Imodium A-D (Loperamide Hcl) 1 Mg/7.5 Ml Liquid 2 Mg PO PRN Q2HR PRN Max dose of 16mg in 24 hours Dulcolax (Bisacodyl) 10 Mg Supp.rect 10 Mg RC PRN DAILY PRN Atorvastatin Calcium 20 Mg Tablet 20 Mg PO QHS Aspir-Low (Aspirin) 81 Mg Tablet.dr 81 Mg PO DAILY Proair Hfa Inhaler (Albuterol Sulfate) 8.5 Gm Hfa.aer.ad 1 Puff INH PRN Q6HRS PRN Acetaminophen 500 Mg Tablet 500 Mg PO PRN Q4HRS PRN NTE 3000mg APAP in 24 hours from all sources I have reviewed the current psychotropics carefully including drug interactions. Risk benefit ratio favors no change other than as noted in my dictated progress note. Diagnosis: Problems: (1) Agitation (2) Acute ischemic stroke (3) Syncope (4) Hemiplegia affecting left nondominant side (5) TIA (transient ischemic attack) (6) Hypertension (7) Anxiety disorder (8) Dementia, vascular, with delusions (9) Dementia, vascular, with depression (10) Impulse control disorder (11) Acute kidney injury DEAN GARDNER MD Mar 31, 2018 20:50
--- NOTE | 2018-03-31 21:00 | NUR ---
Nursing note: Convinced pt to take one time Seroquel ordered earlier but still refused other meds. He thought it was a sleeping pill and agreed to take it after I assured him it wasn't for sleep.
[2018-04-01 06:31] VITALS: BP 154/90
[2018-04-01] MEDS: CYANOCOBALAMIN (VITAMIN B-12) 1,000 MCG TABLET. PO SCH (08:24)
[2018-04-01] MEDS: CEFPODOXIME PROXETIL 100 MG TABLET PO SCH ×2 (08:25→19:53)
[2018-04-01] MEDS: ASPIRIN ENTERIC COATED 81 MG TABLET.DR. PO SCH (08:25)
[2018-04-01] MEDS: MEMANTINE 10 MG TABLET. PO SCH ×2 (08:25→19:53)
[2018-04-01] MEDS: MULTIVITAMIN with MINERAL TABLET. PO SCH (08:25)
[2018-04-01] MEDS: RIVASTIGMINE 9.5MG PATCH. TD SCH (08:25)
[2018-04-01] MEDS: SENNOSIDES/DOCUSATE 8.6/50MG TABLET. PO SCH ×2 (08:25→19:53)
[2018-04-01] MEDS: LACTOBACILLUS RHAMNOSUS GG 1 CAPSULE. PO SCH ×2 (08:25→19:53)
[2018-04-01] MEDS: amLODIPine BESYLATE 5 MG TABLET PO SCH (08:25)
[2018-04-01] MEDS: CARVEDILOL 12.5 MG TABLET PO SCH ×2 (08:26→16:33)
[2018-04-01] MEDS: QUEtiapine 25 MG TABLET. PO SCH ×2 (08:29→16:32)
--- NOTE | 2018-04-01 10:53 | NUR ---
Behavior Intervention Response and Plan: BIRP Note: Behavior: Assumed Care of patient, patient located in Dining Room at shift change. Patient exhibited the following behavior Calm, Disorganized, Cooperative. Brief assessment on rounds of vital signs, medication needs, lab studies, and pain. Treatment plan problems 1-2. Intervention: Patient assessed and the following interventions initiated safety checks 15 Minute Checks Personal Alarm in place , Cognitive Assessment , Head to toe Assessment. Response: After interactions and interventions patient responded in the following manner, Disorganized , Cooperative ,Compliant. Continue to assess behaviors and condition will continue to monitor throughout the shift as needed. Patient educated on ADL's, and hand hygiene. Plan: Continue to monitor Master Treatment Plan for patient's progress toward short term goals of Decreased Agitation, Decreased Aggression, environmental engineering aide goals to return to previous living setting vs placement. Continue to assess patient for changes in above assessment. Monitor for medication needs, pain, and safety concerns. Hourly rounding performed to ensure safe environment.
[2018-04-01 16:24] VITALS: BP 112/71
[2018-04-01] MEDS: WARFARIN 3 MG TABLET. PO SCH (16:33)
[2018-04-01] MEDS: ATORVASTATIN CALCIUM 20 MG TABLET PO SCH (19:53)
--- NOTE | 2018-04-01 21:00 | NUR ---
Behavior Intervention Response and Plan: BIRP Note: Behavior: Assumed Care of patient, patient located in Day Room at shift change. Patient exhibited the following behavior Calm, Withdrawn, Cooperative. Brief assessment on rounds of vital signs, medication needs, lab studies, and pain. Treatment plan problems 1-3. Intervention: Patient assessed and the following interventions initiated safety checks 15 Minute Checks Head to toe Assessment , Medications , ADL's. Response: After interactions and interventions patient responded in the following manner, Calm , Cooperative ,Compliant. Continue to assess behaviors and condition will continue to monitor throughout the shift as needed. Patient educated on ADL's, and hand hygiene. 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 Continue to assess patient for changes in above assessment. Monitor for medication needs, pain, and safety concerns. Hourly rounding performed to ensure safe environment.
--- NOTE | 2018-04-01 22:29 | PDOC ---
Exam Note: [place] Note: Please also refer to the separate dictated note~for this date of service dictated separately.~Patient seen individually. Discussed the patient with Nursing staff reviewed the chart.~Reviewed interim history and current functioning. Reviewed vital signs,~Labs/ Radiology~and current medications noted below. Continue current treatment with the changes noted in the dictated addendum note Assessment: Vital Signs: Vital Signs Date Time Temp Pulse Resp B/P (MAP) Pulse Ox O2 Delivery O2 Flow Rate FiO2 04/01/18 16:33 68 112/71 04/01/18 16:24 97.5 18 95 Room Air I&O Intake and Output 04/01/18 07:00 Intake Total 1080 ml Balance 1080 ml Intake Oral 1080 ml # Voids 1 Current Medications: Meds: Current Medications Acetaminophen (Tylenol) 650 mg PRN Q6HRS PRN PO PAIN / TEMP; Start 03/29/18 at 16:30; Status Cancel Multi-Ingredient Ointment (Analgesic [place]) 1 evan PRN QID PRN TP MUSCLE PAIN; Start 03/29/18 at 16:30 Al Hydroxide/Mg Hydroxide (Mylanta Plus Xs) 15 ml PRN AFTMEALHC PRN PO DYSPEPSIA; Start 03/29/18 at 16:30 Magnesium Hydroxide (Milk Of Magnesia) 2,400 mg PRN QHS PRN PO CONSTIPATION; Start 03/29/18 at 16:30 Albuterol Sulfate (Ventolin Hfa) 1 puff PRN Q6HRS PRN INH SHORTNESS OF BREATH; Start 03/29/18 at 17:00; Status UNV Atorvastatin Calcium (Lipitor) 20 mg QHS PO Last administered on 04/01/18at 19:53 ; Start 03/29/18 at 21:00 Vitamin D (Vitamin D3) 50,000 unit WEEKLY PO ; Start 04/03/18 at 09:00 Cyanocobalamin (Vitamin B-12) 1,000 mcg DAILY PO Last administered on 04/01/18at 08:24; Start 03/30/18 at 09:00 Diclofenac Sodium (Voltaren) 1 evan PRN Q12HR PRN TP PAIN; Start 03/29/18 at 17: 00 Al Hydroxide/Mg Hydroxide (Mylanta Plus Xs) 15 ml PRN Q6HRS PRN PO DYSPEPSIA; Start 03/29/18 at 17:00; Status Cancel Multivitamins/ Calcium (Thera-M Plus) 1 tab DAILY PO Last administered on 08:25; Start 03/30/18 at 09:00 Lactobacillus Rhamnosus (Culturelle) 1 cap BID PO Last administered on 19:53; Start 03/29/18 at 21:00 Senna/Docusate Sodium (Senna Plus) 1 tab BID PO Last administered on 04/01/18 19:53; Start 03/29/18 at 21:00 Acetaminophen (Tylenol) 500 mg PRN Q4HRS PRN PO PAIN / TEMP; Start 03/29/18 at 17:45 Amlodipine Besylate (Norvasc) 5 mg DAILY PO Last administered on 04/01/18 08:25 ; Start 03/30/18 at 09:00 Aspirin (Aspirin Enteric Coated) 81 mg DAILY PO Last administered on 04/01/18 08:25; Start 03/30/18 at 09:00 Bisacodyl (Dulcolax Supp) 10 mg PRN DAILY PRN [place] CONSTIPATION; Start 03/29/18 at 17:45 Carvedilol (Coreg) 12.5 mg BIDWMEALS PO Last administered on 03/30/18 16:44; Start 03/30/18 at 08:00; Stop 03/30/18 at 17:57; Status DC Multivit/Ca Carb/ B Cmplx/FA/Prenat (Nephro-Vikram) 1 tab PRN DAILY PRN PO SUPPLEMENT; Start 03/30/18 at 09:00 Loperamide HCl (Imodium) 2 mg PRN Q2HR PRN PO DIARRHEA; Start 03/29/18 at 17:45 Non-Formulary Medication (Magnesium Hydroxide (Milk Of Magnesia)) 30 ml PRN QHS PRN PO CONSTIPATION; Start 03/29/18 at 17:00; Status UNV Memantine (Namenda) 10 mg BID PO Last administered on 04/01/18 19:53; Start 03/29/18 at 21:00 Potassium Chloride (Klor-Con) 20 meq 3X/WEEK PO Last administered on 03/31/18at 09:32; Start 03/31/18 at 09:00 Artificial Tears (Artificial Tears) 2 drop PRN QID PRN OU DRY EYE; Start at 18:00 Rivastigmine (Exelon) 1 patch DAILY TD Last administered on 04/01/18 08:25; Start 03/30/18 at 09:00 Sodium Chloride (Saline Mist Nasal) 1 evan PRN TID PRN NS NASAL CONGESTION; Start 03/29/18 at 18:00 Warfarin Sodium (Coumadin) 3 mg DAILY16 PO Last administered on 04/01/18 16:33 ; Start 03/29/18 at 18:00 Ondansetron HCl (Zofran Odt) 4 mg PRN Q4HRS PRN PO NAUSEA/VOMITING; Start at 17:30 Albuterol Sulfate (Ventolin) 2.5 mg PRN Q6HRS PRN NEB SHORTNESS OF BREATH; Start 03/29/18 at 18:00 Warfarin Sodium (Coumadin Per Physician) 1 each PRN DAILY PRN MC SEE COMMENTS; Start 03/29/18 at 18:00 Olanzapine (ZyPREXA ZYDIS) 2.5 mg PRN Q2HR PRN PO PSYCHOSIS Last administered on 04/01/18 19:56; Start 03/29/18 at 19:15 Cefpodoxime Proxetil (Vantin) 100 mg BID PO Last administered on 04/01/18 19:53 ; Start 03/29/18 at 21:00; Stop 04/05/18 at 23:00 Amlodipine Besylate (Norvasc) 5 mg BID PRN PO ELEVATED BP, SEE COMMENTS Last administered on 03/30/18 15:29; Start 03/30/18 at 15:30 Carvedilol (Coreg) 12.5 mg 1X ONCE PO Last administered on 03/30/18at 18:05; Start 03/30/18 at 18:00; Stop 03/30/18 at 18:01; Status DC Carvedilol (Coreg) 25 mg BIDWMEALS PO Last administered on 04/01/18 16:33; Start 03/31/18 at 08:00 Quetiapine Fumarate (SEROquel) 12.5 mg 1X ONCE PO Last administered on 18:21; Start 03/31/18 at 18:15; Stop 03/31/18 at 18:18; Status DC Quetiapine Fumarate (SEROquel) 12.5 mg BID@0900,1700 PO Last administered on 04/01/18at 16:32; Start 04/01/18 at 09:00 Active Scripts Active Coumadin (Warfarin Sodium) 3 Mg Tablet 1 Tab PO DAILY Coreg (Carvedilol) 12.5 Mg Tablet 1 Tab PO BID Reported Vitamin D3 (Cholecalciferol (Vitamin D3)) 50,000 Unit Capsule 50,000 Unit PO WEEKLY Vitamin B-12 (Cyanocobalamin (Vitamin B-12)) 1,000 Mcg Tablet 1,000 Mcg PO DAILY Probiotic (Saccharomyces Boulardii) 250 Mg Capsule 250 Mg PO DAILY Norvasc (Amlodipine Besylate) 5 Mg Tablet 5 Mg PO DAILY Nephro-Vikram Tablet (Folic Acid/Vitamin B Comp W-C) 0.8 Mg Tablet 1 Tab PO DAILY PRN EXELON 9.5mg/24hr (Rivastigmine) 1 Each Patch.td24 1 Patch TD DAILY Saline Nasal [place] (Sodium Chloride) 30 Ml [place] 30 Ml NS TID Mag-Al Plus Xs Suspension (Mag Hydrox/Al Hydrox/Simeth) 30 Ml Oral.susp 15 Ml PO PRN Q6HRS PRN Potassium Chloride Oral Liquid (Potassium Chloride) 20 Meq/15 Ml Liquid 20 Meq PO 3X/WEEK Administer on Thursday, Thursday and Thursday Thera-M Tablet (Multivits,Ca,Minerals/Iron/Fa) 1 Each Tablet 1 Tab PO DAILY Namenda (Memantine Hcl) 5 Mg Tablet 10 Mg PO BID Voltaren (Diclofenac Sodium) 100 Gm Gel..gram. 1 Evan TP PRN Q12HR PRN Systane 0.3-0.4% Eye Drops (Propylene Glycol/Peg 400) 15 Ml Drops 2 Drop OU PRN QID PRN Senokot-S Tablet (Sennosides/Docusate Sodium) 1 Each Tablet 1 Tab PO BID Milk Of Magnesia (Magnesium Hydroxide) 2,400 Mg/10 Ml Oral.susp 30 Ml PO PRN QHS PRN Imodium A-D (Loperamide Hcl) 1 Mg/7.5 Ml Liquid 2 Mg PO PRN Q2HR PRN Max dose of 16mg in 24 hours Dulcolax (Bisacodyl) 10 Mg Supp.rect 10 Mg RC PRN DAILY PRN Atorvastatin Calcium 20 Mg Tablet 20 Mg PO QHS Aspir-Low (Aspirin) 81 Mg Tablet. 81 Mg PO DAILY Proair Hfa Inhaler (Albuterol Sulfate) 8.5 Gm Hfa.aer.ad 1 Puff INH PRN Q6HRS PRN Acetaminophen 500 Mg Tablet 500 Mg PO PRN Q4HRS PRN NTE 3000mg APAP in 24 hours from all sources I have reviewed the current psychotropics carefully including drug interactions. Risk benefit ratio favors no change other than as noted in my dictated progress note. Diagnosis: Problems: (1) Agitation (2) Acute ischemic stroke (3) Syncope (4) Hemiplegia affecting left nondominant side (5) TIA (transient ischemic attack) (6) Hypertension (7) Anxiety disorder (8) Dementia, vascular, with delusions (9) Dementia, vascular, with depression (10) Impulse control disorder (11) Acute kidney injury DEAN GARDNER MD Apr 01, 2018 22:29
[2018-04-02 05:50] VITALS: BP 157/88
[2018-04-02] MEDS: QUEtiapine 25 MG TABLET. PO SCH ×2 (07:59→17:18)
[2018-04-02] MEDS: RIVASTIGMINE 9.5MG PATCH. TD SCH (07:59)
[2018-04-02] MEDS: LACTOBACILLUS RHAMNOSUS GG 1 CAPSULE. PO SCH ×2 (08:01→19:44)
[2018-04-02] MEDS: MEMANTINE 10 MG TABLET. PO SCH ×2 (08:01→19:44)
[2018-04-02] MEDS: MULTIVITAMIN with MINERAL TABLET. PO SCH (08:01)
[2018-04-02] MEDS: CYANOCOBALAMIN (VITAMIN B-12) 1,000 MCG TABLET. PO SCH (08:01)
[2018-04-02] MEDS: SENNOSIDES/DOCUSATE 8.6/50MG TABLET. PO SCH ×2 (08:01→19:44)
[2018-04-02] MEDS: CEFPODOXIME PROXETIL 100 MG TABLET PO SCH ×2 (08:01→19:44)
[2018-04-02] MEDS: ASPIRIN ENTERIC COATED 81 MG TABLET.DR. PO SCH (08:01)
[2018-04-02] MEDS: amLODIPine BESYLATE 5 MG TABLET PO SCH (08:02)
[2018-04-02] MEDS: CARVEDILOL 12.5 MG TABLET PO SCH ×2 (08:02→17:18)
[2018-04-02] MEDS: POTASSIUM CHLORIDE 20 MEQ TABLET.ER. PO SCH (08:03)
--- NOTE | 2018-04-02 10:09 | NUR ---
Behavior Intervention Response and Plan: BIRP Note: Behavior: Assumed Care of patient, patient located in Hallway at shift change. Patient exhibited the following behavior Disorganized, Calm, Non Compliant. Brief assessment on rounds of vital signs, medication needs, lab studies, and pain. Treatment plan problems 1-2. Intervention: Patient assessed and the following interventions initiated safety checks 15 Minute Checks Personal Alarm in place , Cognitive Assessment , Head to toe Assessment. Response: After interactions and interventions patient responded in the following manner, Disorganized , Cooperative ,Compliant. Continue to assess behaviors and condition will continue to monitor throughout the shift as needed. Patient educated on ADL's, and hand hygiene. Plan: Continue to monitor Master Treatment Plan for patient's progress toward short term goals of Decreased Agitation, Decreased Aggression, linux architect goals to return to previous living setting vs placement. Continue to assess patient for changes in above assessment. Monitor for medication needs, pain, and safety concerns. Hourly rounding performed to ensure safe environment.
--- NOTE | 2018-04-02 13:23 | PN ---
DATE: 03/31/2018 This late entry for 03/31/2018 and covers elements not covered in my initial note of 03/31/2018. I met with the patient in the evening. The patient slept 6-1/4 hours previous evening, compliant with his morning medications, had some drooling and tremors. Previous evening, he was actively hallucinating, seeing snakes which he was seen also during the day on 03/31/2018. He felt there were snakes on the railings, on the baez. He has been totally noncompliant with medications. I tried to give him his evening dosage for the first time of his Seroquel, he totally refused it, had to be placed in the West hallway away from all others, isolating him from stimuli, which were agitating him, extremely labile, disruptive, loud, aggressive verbally. REVIEW OF SYSTEMS: Ambulation impaired, in wheelchair. No CV, , pulmonary, eye, ENT system symptoms on review. Reliability poor. MENTAL STATUS EXAM: Oriented to himself. Insight, judgment, recent and remote memory, attention, concentration, fund of knowledge poor, consistent with his diagnosis as mentioned in my initial note. PLAN: Start Seroquel 12.5 mg at 9 a.m., 5:00 p.m., first dosage evening of 03/31/2018. Continue rest unchanged. Treat UTI. MAN Beny GARDNER MD DR: DAMIEN/rose JOB#: [id number] / [id number]
[2018-04-02 15:57] VITALS: BP 146/89
[2018-04-02] MEDS: WARFARIN 3 MG TABLET. PO SCH (17:18)
[2018-04-02] MEDS: ATORVASTATIN CALCIUM 20 MG TABLET PO SCH (19:44)
--- NOTE | 2018-04-02 20:30 | PN ---
DATE: 04/01/2018 PSYCHIATRIC PROGRESS NOTE This is a late entry for 04/01/2018, covers elements not covered in my initial note. SUBJECTIVE: The patient was staffed at a treatment team meeting in the morning, seen individually in the evening. The previous night, he was quite agitated, refusing medications, took it much later, doing much better the morning of 04/01/2018. He remains confused, much less agitated, much less psychotic. REVIEW OF SYSTEMS: Ambulation impaired at wheelchair. No CV, , pulmonary, eye, ENT system symptoms on review, pleasant, smiling, holding my hand as I met with him, quite a change from yesterday. MENTAL STATUS EXAM: Oriented to himself. Insight, judgment, recent and remote memory, attention, concentration, fund of knowledge poor, consistent with his diagnosis from my initial note. PLAN: Continue psychotropics. Adjust as indicated. Treat the urinary tract infection. MAN Beny GARDNER MD DR: DAMIEN/rose JOB#: [id number] / [id number]
--- NOTE | 2018-04-02 21:25 | RAD ---
EXAM: CT HEAD WITHOUT CONTRAST. HISTORY: Fall with head injury. TECHNIQUE: Computed tomography of the head was performed without intravenous contrast. COMPARISON: March 28, 2018. FINDINGS: There is no intracranial hemorrhage. There is a chronic lacunar infarct in the right basal ganglia. Another seen in the right lechuga radiata. There is moderate chronic microangiopathic white matter change elsewhere. Prominence of the lateral ventricles and hemispheric sulci indicates moderate atrophy. The visualized paranasal sinuses appear clear. The orbits are unremarkable. The temporal bones are unremarkable. The calvarium reveals no suspicious lesions. IMPRESSION: 1. No acute intracranial findings. 2. Chronic right basal ganglia and lechuga radiata infarcts. Moderate atrophy and chronic microangiopathic white matter change. *One or more of the following individualized dose reduction techniques were utilized for this examination: 1. Automated exposure control. 2. Adjustment of the mA and/or kV according to patient size. 3. Use of iterative reconstruction technique. Electronically signed by: Keyana Barboza MD (04/02/2018 9:21 PM) [facility]
--- NOTE | 2018-04-02 23:17 | PDOC ---
Exam Note: [place] Note: Please also refer to the separate dictated note~for this date of service dictated separately.~Patient seen individually. Discussed the patient with Nursing staff reviewed the chart.~Reviewed interim history and current functioning. Reviewed vital signs,~Labs/ Radiology~and current medications noted below. Continue current treatment with the changes noted in the dictated addendum note Assessment: Vital Signs: Vital Signs Date Time Temp Pulse Resp B/P (MAP) Pulse Ox O2 Delivery O2 Flow Rate FiO2 04/02/18 17:18 59 146/89 04/02/18 15:57 97.8 16 98 04/01/18 16:24 Room Air I&O Intake and Output 04/02/18 07:00 Intake Total 1380 ml Balance 1380 ml Intake Oral 1380 ml # Bowel Movements 2 Current Medications: Meds: Current Medications Acetaminophen (Tylenol) 650 mg PRN Q6HRS PRN PO PAIN / TEMP; Start 03/29/18 at 16:30; Status Cancel Multi-Ingredient Ointment (Analgesic [place]) 1 evan PRN QID PRN TP MUSCLE PAIN; Start 03/29/18 at 16:30 Al Hydroxide/Mg Hydroxide (Mylanta Plus Xs) 15 ml PRN AFTMEALHC PRN PO DYSPEPSIA; Start 03/29/18 at 16:30 Magnesium Hydroxide (Milk Of Magnesia) 2,400 mg PRN QHS PRN PO CONSTIPATION; Start 03/29/18 at 16:30 Albuterol Sulfate (Ventolin Hfa) 1 puff PRN Q6HRS PRN INH SHORTNESS OF BREATH; Start 03/29/18 at 17:00; Status UNV Atorvastatin Calcium (Lipitor) 20 mg QHS PO Last administered on 04/02/18at 19:44 ; Start 03/29/18 at 21:00 Vitamin D (Vitamin D3) 50,000 unit WEEKLY PO ; Start 04/03/18 at 09:00 Cyanocobalamin (Vitamin B-12) 1,000 mcg DAILY PO Last administered on 04/02/18at 08:01; Start 03/30/18 at 09:00 Diclofenac Sodium (Voltaren) 1 evan PRN Q12HR PRN TP PAIN; Start 03/29/18 at 17: 00 Al Hydroxide/Mg Hydroxide (Mylanta Plus Xs) 15 ml PRN Q6HRS PRN PO DYSPEPSIA; Start 03/29/18 at 17:00; Status Cancel Multivitamins/ Calcium (Thera-M Plus) 1 tab DAILY PO Last administered on 08:01; Start 03/30/18 at 09:00 Lactobacillus Rhamnosus (Culturelle) 1 cap BID PO Last administered on 19:44; Start 03/29/18 at 21:00 Senna/Docusate Sodium (Senna Plus) 1 tab BID PO Last administered on 04/02/18 19:44; Start 03/29/18 at 21:00 Acetaminophen (Tylenol) 500 mg PRN Q4HRS PRN PO PAIN / TEMP; Start 03/29/18 at 17:45 Amlodipine Besylate (Norvasc) 5 mg DAILY PO Last administered on 04/02/18 08:02 ; Start 03/30/18 at 09:00 Aspirin (Aspirin Enteric Coated) 81 mg DAILY PO Last administered on 04/02/18 08:01; Start 03/30/18 at 09:00 Bisacodyl (Dulcolax Supp) 10 mg PRN DAILY PRN [place] CONSTIPATION; Start 03/29/18 at 17:45 Carvedilol (Coreg) 12.5 mg BIDWMEALS PO Last administered on 03/30/18 16:44; Start 03/30/18 at 08:00; Stop 03/30/18 at 17:57; Status DC Multivit/Ca Carb/ B Cmplx/FA/Prenat (Nephro-Vikram) 1 tab PRN DAILY PRN PO SUPPLEMENT; Start 03/30/18 at 09:00 Loperamide HCl (Imodium) 2 mg PRN Q2HR PRN PO DIARRHEA; Start 03/29/18 at 17:45 Non-Formulary Medication (Magnesium Hydroxide (Milk Of Magnesia)) 30 ml PRN QHS PRN PO CONSTIPATION; Start 03/29/18 at 17:00; Status UNV Memantine (Namenda) 10 mg BID PO Last administered on 04/02/18 19:44; Start 03/29/18 at 21:00 Potassium Chloride (Klor-Con) 20 meq 3X/WEEK PO Last administered on 04/02/18 08:03; Start 03/31/18 at 09:00 Artificial Tears (Artificial Tears) 2 drop PRN QID PRN OU DRY EYE; Start at 18:00 Rivastigmine (Exelon) 1 patch DAILY TD Last administered on 04/02/18at 07:59; Start 03/30/18 at 09:00 Sodium Chloride (Saline Mist Nasal) 1 evan PRN TID PRN NS NASAL CONGESTION; Start 03/29/18 at 18:00 Warfarin Sodium (Coumadin) 3 mg DAILY16 PO Last administered on 04/02/18at 17:18 ; Start 03/29/18 at 18:00 Ondansetron HCl (Zofran Odt) 4 mg PRN Q4HRS PRN PO NAUSEA/VOMITING; Start at 17:30 Albuterol Sulfate (Ventolin) 2.5 mg PRN Q6HRS PRN NEB SHORTNESS OF BREATH; Start 03/29/18 at 18:00 Warfarin Sodium (Coumadin Per Physician) 1 each PRN DAILY PRN MC SEE COMMENTS; Start 03/29/18 at 18:00 Olanzapine (ZyPREXA ZYDIS) 2.5 mg PRN Q2HR PRN PO PSYCHOSIS Last administered on 04/01/18 19:56; Start 03/29/18 at 19:15 Cefpodoxime Proxetil (Vantin) 100 mg BID PO Last administered on 04/02/18at 19:44 ; Start 03/29/18 at 21:00; Stop 04/05/18 at 23:00 Amlodipine Besylate (Norvasc) 5 mg BID PRN PO ELEVATED BP, SEE COMMENTS Last administered on 03/30/18at 15:29; Start 03/30/18 at 15:30 Carvedilol (Coreg) 12.5 mg 1X ONCE PO Last administered on 03/30/18 18:05; Start 03/30/18 at 18:00; Stop 03/30/18 at 18:01; Status DC Carvedilol (Coreg) 25 mg BIDWMEALS PO Last administered on 04/02/18 17:18; Start 03/31/18 at 08:00 Quetiapine Fumarate (SEROquel) 12.5 mg 1X ONCE PO Last administered on at 18:21; Start 03/31/18 at 18:15; Stop 6/6/18 at 18:18; Status DC Quetiapine Fumarate (SEROquel) 12.5 mg BID@0900,1700 PO Last administered on 04/02/18at 17:18; Start 04/01/18 at 09:00 Active Scripts Active Coumadin (Warfarin Sodium) 3 Mg Tablet 1 Tab PO DAILY Coreg (Carvedilol) 12.5 Mg Tablet 1 Tab PO BID Reported Vitamin D3 (Cholecalciferol (Vitamin D3)) 50,000 Unit Capsule 50,000 Unit PO WEEKLY Vitamin B-12 (Cyanocobalamin (Vitamin B-12)) 1,000 Mcg Tablet 1,000 Mcg PO DAILY Probiotic (Saccharomyces Boulardii) 250 Mg Capsule 250 Mg PO DAILY Norvasc (Amlodipine Besylate) 5 Mg Tablet 5 Mg PO DAILY Nephro-Vikram Tablet (Folic Acid/Vitamin B Comp W-C) 0.8 Mg Tablet 1 Tab PO DAILY PRN EXELON 9.5mg/24hr (Rivastigmine) 1 Each Patch.td24 1 Patch TD DAILY Saline Nasal [place] (Sodium Chloride) 30 Ml [place] 30 Ml NS TID Mag-Al Plus Xs Suspension (Mag Hydrox/Al Hydrox/Simeth) 30 Ml Oral.susp 15 Ml PO PRN Q6HRS PRN Potassium Chloride Oral Liquid (Potassium Chloride) 20 Meq/15 Ml Liquid 20 Meq PO 3X/WEEK Administer on Thursday, Thursday and Thursday Thera-M Tablet (Multivits,Ca,Minerals/Iron/Fa) 1 Each Tablet 1 Tab PO DAILY Namenda (Memantine Hcl) 5 Mg Tablet 10 Mg PO BID Voltaren (Diclofenac Sodium) 100 Gm Gel..gram. 1 Evan TP PRN Q12HR PRN Systane 0.3-0.4% Eye Drops (Propylene Glycol/Peg 400) 15 Ml Drops 2 Drop OU PRN QID PRN Senokot-S Tablet (Sennosides/Docusate Sodium) 1 Each Tablet 1 Tab PO BID Milk Of Magnesia (Magnesium Hydroxide) 2,400 Mg/10 Ml Oral.susp 30 Ml PO PRN QHS PRN Imodium A-D (Loperamide Hcl) 1 Mg/7.5 Ml Liquid 2 Mg PO PRN Q2HR PRN Max dose of 16mg in 24 hours Dulcolax (Bisacodyl) 10 Mg Supp.rect 10 Mg RC PRN DAILY PRN Atorvastatin Calcium 20 Mg Tablet 20 Mg PO QHS Aspir-Low (Aspirin) 81 Mg Tablet. 81 Mg PO DAILY Proair Hfa Inhaler (Albuterol Sulfate) 8.5 Gm Hfa.aer.ad 1 Puff INH PRN Q6HRS PRN Acetaminophen 500 Mg Tablet 500 Mg PO PRN Q4HRS PRN NTE 3000mg APAP in 24 hours from all sources I have reviewed the current psychotropics carefully including drug interactions. Risk benefit ratio favors no change other than as noted in my dictated progress note. Diagnosis: Problems: (1) Agitation (2) Acute ischemic stroke (3) Syncope (4) Hemiplegia affecting left nondominant side (5) TIA (transient ischemic attack) (6) Hypertension (7) Anxiety disorder (8) Dementia, vascular, with delusions (9) Dementia, vascular, with depression (10) Impulse control disorder (11) Acute kidney injury DEAN GARDNER MD Apr 02, 2018 23:17
--- NOTE | 2018-04-03 04:44 | NUR ---
Nursing Note Pt found on floor after admitting to throwing himself on the floor over the bed rail because he was tired of waiting for us to give back his stolen merchandise. Delusional and confused, difficult to redirect. No injury apparent, but dr. ye called and ordered a ct head. Pt taken to CT and resulted out with no bleed or other abnormalities. Pt states he had a head ache and Tylenol. Promises he will never throw a tantrum again and will be good for the rest of the shift. Pt has a history of CVA, hemiparetic on the left side. Addendum: 04/03/18 at 0546 by DARCY DUEÑAS RN Order was received from Dr. Gorge Ye.
--- NOTE | 2018-04-03 05:46 | NUR ---
Nursing Note Pt awakened groggy this am, difficult to arouse. Dr. Bell ordered repeat CT head, Dr. bell stated he has been like this before, has had multiple CT of the head secondary to decrease in LOC. VSS, will squeeze my hand pupils are equal and reactive to light. Will shake head to questions.
[2018-04-03 05:47] VITALS: BP 136/79
--- NOTE | 2018-04-03 06:29 | RAD ---
Indication: Fall last night with right-sided facial drooping extreme groundglass this morning. TECHNIQUE: CT head without IV contrast COMPARISON: CT head from 04/02/2018 FINDINGS: No pathologic extra-axial or intra-axial fluid collection. Moderate diffuse cerebral atrophy. No acute intracranial bleed. Low-attenuation is seen along the periventricular white matter. No focal loss of viveros-white differentiation. No suspicious calvarial lesion. The paranasal sinuses and mastoid air cells are clear. Orbits within normal limits. IMPRESSION: 1. No acute intracranial process. If concern for acute ischemic stroke remains high, please consider MRI brain. 2. Moderate atrophic. 3. White matter changes likely secondary to chronic microvascular ischemic disease. Electronically signed by: Mandeep Power DO (04/03/2018 6:25 AM) [id number]
[2018-04-03] MEDS: RIVASTIGMINE 9.5MG PATCH. TD SCH (08:16)
[2018-04-03] MEDS: MULTIVITAMIN with MINERAL TABLET. PO SCH (08:17)
[2018-04-03] MEDS: MEMANTINE 10 MG TABLET. PO SCH ×2 (08:17→19:58)
[2018-04-03] MEDS: CEFPODOXIME PROXETIL 100 MG TABLET PO SCH ×2 (08:18→19:59)
[2018-04-03] MEDS: QUEtiapine 25 MG TABLET. PO SCH ×2 (08:18→16:47)
[2018-04-03] MEDS: SENNOSIDES/DOCUSATE 8.6/50MG TABLET. PO SCH ×2 (08:18→19:59)
[2018-04-03] MEDS: LACTOBACILLUS RHAMNOSUS GG 1 CAPSULE. PO SCH ×2 (08:19→19:58)
[2018-04-03] MEDS: ASPIRIN ENTERIC COATED 81 MG TABLET.DR. PO SCH (08:19)
[2018-04-03] MEDS: CYANOCOBALAMIN (VITAMIN B-12) 1,000 MCG TABLET. PO SCH (08:19)
[2018-04-03 08:21] VITALS: BP 172/89
[2018-04-03] MEDS: amLODIPine BESYLATE 5 MG TABLET PO SCH (08:22)
[2018-04-03] MEDS: CARVEDILOL 12.5 MG TABLET PO SCH ×2 (08:22→16:46)
[2018-04-03] MEDS: CHOLECALCIFEROL (VITAMIN D3) 50,000 UNIT CAPSULE PO SCH (08:37)
--- NOTE | 2018-04-03 13:32 | PN ---
DATE: 04/02/2018 PSYCHIATRIC PROGRESS NOTE This late entry 04/02/2018 covers elements not covered in my initial note of 04/02/2018. SUBJECTIVE: Met with the patient in the evening. The patient has been quite pleasant, confused, verbal, interactive, holding my hand, smiling as I met with him. He slept 7 hours. REVIEW OF SYSTEMS: Ambulation is impaired, in Broda chair. No CV, , pulmonary, eye, ENT system symptoms on review. Reliability is poor. MENTAL STATUS EXAM: Oriented to himself, situation. Speech is coherent, rapid at times. Abstraction fair, computation is impaired, language function intact. Attention span short. Short term memory is impaired. LABORATORY DATA: Reviewed. IMPRESSION: Major depressive disorder, recurrent; major neurocognitive disorder, Alzheimer, vascular with delusion; depression; behavioral disturbance; urinary tract infection. PLAN: Treat the UTI, he is on Vantin. Continue rest of the psychotropics from initial note. DEAN GARDNER MD DR: DAMIEN/rose JOB#: [id number] / [id number]
[2018-04-03 16:28] VITALS: BP 176/77
[2018-04-03] MEDS: WARFARIN 3 MG TABLET. PO SCH (16:44)
[2018-04-03] MEDS: ATORVASTATIN CALCIUM 20 MG TABLET PO SCH (19:58)
[2018-04-04] MEDS: hydrOXYzine HCL 25 MG TABLET PO PRN (00:01)
--- NOTE | 2018-04-04 00:41 | NUR ---
Nursing Note Pt is floridly psychotic this PM. Screams incessantly that snakes are coming to eat him, states that I have a huge python with a huge head, that I am planning to release on him to make him snake food. He states that my snake is the brother of Sky, and that it is from the [place] of [place]. States that I am a liar, and that he put all of his trust in me and now I won't open the door to let him walk on out of here. He states that he is from [facility] [place] [facility] [place] his [place] town and plenty of people would be on their way to come and get him. Screams over and over 'Let me go Let me go Let me go!!!' insists that we are keeping him here in [facility]. Refuses all meds, stating "Im not taking no fucking meds from you shaunzy sandrita, let me go!!!!" Hitting the wall with his good arm and kicks the bed rail and the wall. Very attention seeking, 2 doses of Zyprexa Zydis has not helped. Dr. Crystal paged orders for hydroxizine for continued agitation. Hours later the patient makes statements to the SENIOR MAINTENANCE MECHANIC's that he is quite apologetic for being so nasty to us. Says at this time he would take his medications and will try to get some sleep. Finally med compliant.
[2018-04-04 06:10] VITALS: BP 167/92
--- NOTE | 2018-04-04 06:42 | NUR ---
Nursing Note Pt has been belligerent on and off. Woke up this am yelling, seeing snakes, angry, arguing about his clothing. States he wants to go to his room and get his own pants on, and he wants his own shirt. Pt has no clothing with him, and is out of control because of it. Unable to rationalize with him, or for him to accept reasoning. Screaming help help over and over again. Making bad decisions, making threats to throw himself on the floor and he is educated on the fact that he has a blood thinner on board. Combative with staff and trying to kick and hit. States he's calling the law and will yulia us for all we have. Hates the shirt he has on, wants his shoes, wants his important legal papers, wants to hit passers by.
[2018-04-04] MEDS: RIVASTIGMINE 9.5MG PATCH. TD SCH (08:44)
[2018-04-04] MEDS: ASPIRIN ENTERIC COATED 81 MG TABLET.DR. PO SCH (08:45)
[2018-04-04] MEDS: CARVEDILOL 12.5 MG TABLET PO SCH ×2 (08:45→16:55)
[2018-04-04] MEDS: CEFPODOXIME PROXETIL 100 MG TABLET PO SCH ×2 (08:45→19:30)
[2018-04-04] MEDS: MULTIVITAMIN with MINERAL TABLET. PO SCH (08:46)
[2018-04-04] MEDS: amLODIPine BESYLATE 5 MG TABLET PO SCH (08:46)
[2018-04-04] MEDS: SENNOSIDES/DOCUSATE 8.6/50MG TABLET. PO SCH ×2 (08:46→19:31)
[2018-04-04] MEDS: LACTOBACILLUS RHAMNOSUS GG 1 CAPSULE. PO SCH ×2 (08:46→19:30)
[2018-04-04] MEDS: CYANOCOBALAMIN (VITAMIN B-12) 1,000 MCG TABLET. PO SCH (08:46)
[2018-04-04] MEDS: QUEtiapine 25 MG TABLET. PO SCH ×2 (08:46→16:54)
[2018-04-04] MEDS: MEMANTINE 10 MG TABLET. PO SCH ×2 (08:48→19:30)
[2018-04-04 16:36] VITALS: BP 169/76
[2018-04-04] MEDS: WARFARIN 3 MG TABLET. PO SCH (16:54)
[2018-04-04] MEDS: ATORVASTATIN CALCIUM 20 MG TABLET PO SCH (19:30)
--- NOTE | 2018-04-04 20:31 | PDOC ---
Exam Note: [place] Note: Late entry for date of service April 03, 2018. Please also refer to the separate dictated note~for this date of service dictated separately.~Patient seen individually. Discussed the patient with Nursing staff reviewed the chart.~ Reviewed interim history and current functioning. Reviewed vital signs,~Labs/ Radiology~and current medications noted below. Continue current treatment with the changes noted in the dictated addendum note Assessment: Vital Signs: VS - Last 72 Hours, by Label Date Time Temp Pulse Resp B/P (MAP) Pulse Ox O2 Delivery O2 Flow Rate FiO2 04/04/18 16:55 67 169/76 04/04/18 16:36 98.6 67 18 169/76 (107) 98 04/04/18 08:46 69 167/92 04/04/18 08:45 69 167/92 04/04/18 06:10 97.5 69 22 167/92 (117) 96 04/03/18 16:46 69 176/77 04/03/18 16:28 98.3 69 18 176/77 (110) 98 04/03/18 08:22 65 172/89 04/03/18 08:22 65 172/89 04/03/18 08:21 65 172/89 (116) Room Air 04/03/18 05:47 97.7 55 16 136/79 (98) 94 04/02/18 17:18 59 146/89 04/02/18 15:57 97.8 59 16 146/89 (108) 98 04/02/18 08:02 67 157/88 04/02/18 08:02 67 157/88 04/02/18 05:50 97.7 67 14 157/88 (111) 98 Vital Signs Date Time Temp Pulse Resp B/P (MAP) Pulse Ox O2 Delivery O2 Flow Rate FiO2 04/04/18 16:55 67 169/76 04/04/18 16:36 98.6 18 98 04/03/18 08:21 Room Air I&O Intake and Output 04/04/18 07:00 Intake Total 1080 ml Balance 1080 ml Intake Oral 1080 ml # Voids 2 Labs: Laboratory Tests Test 04/04/18 07:57 Prothrombin Time 13.5 SEC (9.4-11.4) H Prothrombin Time INR 1.3 (0.9-1.1) H Current Medications: Meds: Current Medications Acetaminophen (Tylenol) 650 mg PRN Q6HRS PRN PO PAIN / TEMP; Start 03/29/18 at 16:30; Status Cancel Multi-Ingredient Ointment (Analgesic [place]) 1 evan PRN QID PRN TP MUSCLE PAIN; Start 03/29/18 at 16:30 Al Hydroxide/Mg Hydroxide (Mylanta Plus Xs) 15 ml PRN AFTMEALHC PRN PO DYSPEPSIA; Start 03/29/18 at 16:30 Magnesium Hydroxide (Milk Of Magnesia) 2,400 mg PRN QHS PRN PO CONSTIPATION; Start 03/29/18 at 16:30 Albuterol Sulfate (Ventolin Hfa) 1 puff PRN Q6HRS PRN INH SHORTNESS OF BREATH; Start 03/29/18 at 17:00; Status UNV Atorvastatin Calcium (Lipitor) 20 mg QHS PO Last administered on 04/04/18at 19: 30; Start 03/29/18 at 21:00 Vitamin D (Vitamin D3) 50,000 unit WEEKLY PO Last administered on 04/03/18at 08: 37; Start 04/03/18 at 09:00 Cyanocobalamin (Vitamin B-12) 1,000 mcg DAILY PO Last administered on at 08:46; Start 03/30/18 at 09:00 Diclofenac Sodium (Voltaren) 1 evan PRN Q12HR PRN TP PAIN; Start 03/29/18 at 17: 00 Al Hydroxide/Mg Hydroxide (Mylanta Plus Xs) 15 ml PRN Q6HRS PRN PO DYSPEPSIA; Start 03/29/18 at 17:00; Status Cancel Multivitamins/ Calcium (Thera-M Plus) 1 tab DAILY PO Last administered on at 08:46; Start 03/30/18 at 09:00 Lactobacillus Rhamnosus (Culturelle) 1 cap BID PO Last administered on 19:30; Start 03/29/18 at 21:00 Senna/Docusate Sodium (Senna Plus) 1 tab BID PO Last administered on 04/04/18 19:31; Start 03/29/18 at 21:00 Acetaminophen (Tylenol) 500 mg PRN Q4HRS PRN PO PAIN / TEMP; Start 03/29/18 at 17:45 Amlodipine Besylate (Norvasc) 5 mg DAILY PO Last administered on 04/04/18 08: 46; Start 03/30/18 at 09:00 Aspirin (Aspirin Enteric Coated) 81 mg DAILY PO Last administered on 04/04/18 08:45; Start 03/30/18 at 09:00 Bisacodyl (Dulcolax Supp) 10 mg PRN DAILY PRN SC CONSTIPATION; Start 03/29/18 at 17:45 Carvedilol (Coreg) 12.5 mg BIDWMEALS PO Last administered on 03/30/18 16:44; Start 03/30/18 at 08:00; Stop 03/30/18 at 17:57; Status DC Multivit/Ca Carb/ B Cmplx/FA/Prenat (Nephro-Vikram) 1 tab PRN DAILY PRN PO SUPPLEMENT; Start 03/30/18 at 09:00 Loperamide HCl (Imodium) 2 mg PRN Q2HR PRN PO DIARRHEA; Start 03/29/18 at 17:45 Non-Formulary Medication (Magnesium Hydroxide (Milk Of Magnesia)) 30 ml PRN QHS PRN PO CONSTIPATION; Start 03/29/18 at 17:00; Status UNV Memantine (Namenda) 10 mg BID PO Last administered on 04/04/18 19:30; Start at 21:00 Potassium Chloride (Klor-Con) 20 meq 3X/WEEK PO Last administered on 04/02/18 08:03; Start 03/31/18 at 09:00 Artificial Tears (Artificial Tears) 2 drop PRN QID PRN OU DRY EYE; Start at 18:00 Rivastigmine (Exelon) 1 patch DAILY TD Last administered on 04/04/18 08:44; Start 03/30/18 at 09:00 Sodium Chloride (Saline Mist Nasal) 1 evan PRN TID PRN NS NASAL CONGESTION; Start 03/29/18 at 18:00 Warfarin Sodium (Coumadin) 3 mg DAILY16 PO Last administered on 04/04/18 16:54 ; Start 03/29/18 at 18:00 Ondansetron HCl (Zofran Odt) 4 mg PRN Q4HRS PRN PO NAUSEA/VOMITING; Start at 17:30 Albuterol Sulfate (Ventolin) 2.5 mg PRN Q6HRS PRN NEB SHORTNESS OF BREATH; Start 03/29/18 at 18:00 Warfarin Sodium (Coumadin Per Physician) 1 each PRN DAILY PRN MC SEE COMMENTS; Start 03/29/18 at 18:00 Olanzapine (ZyPREXA ZYDIS) 2.5 mg PRN Q2HR PRN PO PSYCHOSIS Last administered on 04/03/18at 22:55; Start 03/29/18 at 19:15 Cefpodoxime Proxetil (Vantin) 100 mg BID PO Last administered on 04/04/18at 19: 30; Start 03/29/18 at 21:00; Stop 04/05/18 at 23:00 Amlodipine Besylate (Norvasc) 5 mg BID PRN PO ELEVATED BP, SEE COMMENTS Last administered on 03/30/18at 15:29; Start 03/30/18 at 15:30 Carvedilol (Coreg) 12.5 mg 1X ONCE PO Last administered on 03/30/18at 18:05; Start 03/30/18 at 18:00; Stop 03/30/18 at 18:01; Status DC Carvedilol (Coreg) 25 mg BIDWMEALS PO Last administered on 04/04/18at 16:55; Start 03/31/18 at 08:00 Quetiapine Fumarate (SEROquel) 12.5 mg 1X ONCE PO Last administered on at 18:21; Start 03/31/18 at 18:15; Stop 03/31/18 at 18:18; Status DC Quetiapine Fumarate (SEROquel) 12.5 mg BID@0900,1700 PO Last administered on 08/12at 16:54; Start 04/01/18 at 09:00 Hydroxyzine HCl (Atarax) 25 mg PRN Q2HR PRN PO PSYCHOSIS Last administered on at 00:01; Start 04/03/18 at 23:15 Active Scripts Active Coumadin (Warfarin Sodium) 3 Mg Tablet 1 Tab PO DAILY Coreg (Carvedilol) 12.5 Mg Tablet 1 Tab PO BID Reported Vitamin D3 (Cholecalciferol (Vitamin D3)) 50,000 Unit Capsule 50,000 Unit PO WEEKLY Vitamin B-12 (Cyanocobalamin (Vitamin B-12)) 1,000 Mcg Tablet 1,000 Mcg PO DAILY Probiotic (Saccharomyces Boulardii) 250 Mg Capsule 250 Mg PO DAILY Norvasc (Amlodipine Besylate) 5 Mg Tablet 5 Mg PO DAILY Nephro-Vikram Tablet (Folic Acid/Vitamin B Comp W-C) 0.8 Mg Tablet 1 Tab PO DAILY PRN EXELON 9.5mg/24hr (Rivastigmine) 1 Each Patch.td24 1 Patch TD DAILY Saline Nasal [place] (Sodium Chloride) 30 Ml [place] 30 Ml NS TID Mag-Al Plus Xs Suspension (Mag Hydrox/Al Hydrox/Simeth) 30 Ml Oral.susp 15 Ml PO PRN Q6HRS PRN Potassium Chloride Oral Liquid (Potassium Chloride) 20 Meq/15 Ml Liquid 20 Meq PO 3X/WEEK Administer on Thursday, Thursday and Thursday Thera-M Tablet (Multivits,Ca,Minerals/Iron/Fa) 1 Each Tablet 1 Tab PO DAILY Namenda (Memantine Hcl) 5 Mg Tablet 10 Mg PO BID Voltaren (Diclofenac Sodium) 100 Gm Gel..gram. 1 Evan TP PRN Q12HR PRN Systane 0.3-0.4% Eye Drops (Propylene Glycol/Peg 400) 15 Ml Drops 2 Drop OU PRN QID PRN Senokot-S Tablet (Sennosides/Docusate Sodium) 1 Each Tablet 1 Tab PO BID Milk Of Magnesia (Magnesium Hydroxide) 2,400 Mg/10 Ml Oral.susp 30 Ml PO PRN QHS PRN Imodium A-D (Loperamide Hcl) 1 Mg/7.5 Ml Liquid 2 Mg PO PRN Q2HR PRN Max dose of 16mg in 24 hours Dulcolax (Bisacodyl) 10 Mg Supp.rect 10 Mg RC PRN DAILY PRN Atorvastatin Calcium 20 Mg Tablet 20 Mg PO QHS Aspir-Low (Aspirin) 81 Mg Tablet.dr 81 Mg PO DAILY Proair Hfa Inhaler (Albuterol Sulfate) 8.5 Gm Hfa.aer.ad 1 Puff INH PRN Q6HRS PRN Acetaminophen 500 Mg Tablet 500 Mg PO PRN Q4HRS PRN NTE 3000mg APAP in 24 hours from all sources I have reviewed the current psychotropics carefully including drug interactions. Risk benefit ratio favors no change other than as noted in my dictated progress note. Diagnosis: Problems: (1) Agitation (2) Acute ischemic stroke (3) Syncope (4) Hemiplegia affecting left nondominant side (5) TIA (transient ischemic attack) (6) Hypertension (7) Anxiety disorder (8) Dementia, vascular, with delusions (9) Dementia, vascular, with depression (10) Impulse control disorder (11) Acute kidney injury DEAN GARDNER MD Apr 04, 2018 20:31
--- NOTE | 2018-04-04 20:32 | PDOC ---
Exam Note: [place] Note: Please also refer to the separate dictated note~for this date of service dictated separately.~Patient seen individually. Discussed the patient with Nursing staff reviewed the chart.~Reviewed interim history and current functioning. Reviewed vital signs,~Labs/ Radiology~and current medications noted below. Continue current treatment with the changes noted in the dictated addendum note Assessment: Vital Signs: Vital Signs Date Time Temp Pulse Resp B/P (MAP) Pulse Ox O2 Delivery O2 Flow Rate FiO2 04/04/18 16:55 67 169/76 04/04/18 16:36 98.6 18 98 04/03/18 08:21 Room Air I&O Intake and Output 04/04/18 07:00 Intake Total 1080 ml Balance 1080 ml Intake Oral 1080 ml # Voids 2 Labs: Laboratory Tests Test 04/04/18 07:57 Prothrombin Time 13.5 SEC (9.4-11.4) H Prothrombin Time INR 1.3 (0.9-1.1) H Current Medications: Meds: Current Medications Acetaminophen (Tylenol) 650 mg PRN Q6HRS PRN PO PAIN / TEMP; Start 03/29/18 at 16:30; Status Cancel Multi-Ingredient Ointment (Analgesic [place]) 1 evan PRN QID PRN TP MUSCLE PAIN; Start 03/29/18 at 16:30 Al Hydroxide/Mg Hydroxide (Mylanta Plus Xs) 15 ml PRN AFTMEALHC PRN PO DYSPEPSIA; Start 03/29/18 at 16:30 Magnesium Hydroxide (Milk Of Magnesia) 2,400 mg PRN QHS PRN PO CONSTIPATION; Start 03/29/18 at 16:30 Albuterol Sulfate (Ventolin Hfa) 1 puff PRN Q6HRS PRN INH SHORTNESS OF BREATH; Start 03/29/18 at 17:00; Status UNV Atorvastatin Calcium (Lipitor) 20 mg QHS PO Last administered on 04/04/18at 19: 30; Start 03/29/18 at 21:00 Vitamin D (Vitamin D3) 50,000 unit WEEKLY PO Last administered on 04/03/18at 08: 37; Start 04/03/18 at 09:00 Cyanocobalamin (Vitamin B-12) 1,000 mcg DAILY PO Last administered on at 08:46; Start 03/30/18 at 09:00 Diclofenac Sodium (Voltaren) 1 evan PRN Q12HR PRN TP PAIN; Start 03/29/18 at 17: 00 Al Hydroxide/Mg Hydroxide (Mylanta Plus Xs) 15 ml PRN Q6HRS PRN PO DYSPEPSIA; Start 03/29/18 at 17:00; Status Cancel Multivitamins/ Calcium (Thera-M Plus) 1 tab DAILY PO Last administered on 08:46; Start 03/30/18 at 09:00 Lactobacillus Rhamnosus (Culturelle) 1 cap BID PO Last administered on 19:30; Start 03/29/18 at 21:00 Senna/Docusate Sodium (Senna Plus) 1 tab BID PO Last administered on 04/04/18 19:31; Start 03/29/18 at 21:00 Acetaminophen (Tylenol) 500 mg PRN Q4HRS PRN PO PAIN / TEMP; Start 03/29/18 at 17:45 Amlodipine Besylate (Norvasc) 5 mg DAILY PO Last administered on 04/04/18at 08: 46; Start 03/30/18 at 09:00 Aspirin (Aspirin Enteric Coated) 81 mg DAILY PO Last administered on 04/04/18 08:45; Start 03/30/18 at 09:00 Bisacodyl (Dulcolax Supp) 10 mg PRN DAILY PRN AL CONSTIPATION; Start 03/29/18 at 17:45 Carvedilol (Coreg) 12.5 mg BIDWMEALS PO Last administered on 03/30/18 16:44; Start 03/30/18 at 08:00; Stop 03/30/18 at 17:57; Status DC Multivit/Ca Carb/ B Cmplx/FA/Prenat (Nephro-Vikram) 1 tab PRN DAILY PRN PO SUPPLEMENT; Start 03/30/18 at 09:00 Loperamide HCl (Imodium) 2 mg PRN Q2HR PRN PO DIARRHEA; Start 03/29/18 at 17:45 Non-Formulary Medication (Magnesium Hydroxide (Milk Of Magnesia)) 30 ml PRN QHS PRN PO CONSTIPATION; Start 03/29/18 at 17:00; Status UNV Memantine (Namenda) 10 mg BID PO Last administered on 6/10/18at 19:30; Start at 21:00 Potassium Chloride (Klor-Con) 20 meq 3X/WEEK PO Last administered on 04/02/18at 08:03; Start 03/31/18 at 09:00 Artificial Tears (Artificial Tears) 2 drop PRN QID PRN OU DRY EYE; Start at 18:00 Rivastigmine (Exelon) 1 patch DAILY TD Last administered on 04/04/18at 08:44; Start 03/30/18 at 09:00 Sodium Chloride (Saline Mist Nasal) 1 evan PRN TID PRN NS NASAL CONGESTION; Start 03/29/18 at 18:00 Warfarin Sodium (Coumadin) 3 mg DAILY16 PO Last administered on 04/04/18at 16:54 ; Start 03/29/18 at 18:00 Ondansetron HCl (Zofran Odt) 4 mg PRN Q4HRS PRN PO NAUSEA/VOMITING; Start at 17:30 Albuterol Sulfate (Ventolin) 2.5 mg PRN Q6HRS PRN NEB SHORTNESS OF BREATH; Start 03/29/18 at 18:00 Warfarin Sodium (Coumadin Per Physician) 1 each PRN DAILY PRN MC SEE COMMENTS; Start 03/29/18 at 18:00 Olanzapine (ZyPREXA ZYDIS) 2.5 mg PRN Q2HR PRN PO PSYCHOSIS Last administered on 04/03/18at 22:55; Start 03/29/18 at 19:15 Cefpodoxime Proxetil (Vantin) 100 mg BID PO Last administered on 04/04/18at 19: 30; Start 03/29/18 at 21:00; Stop 04/05/18 at 23:00 Amlodipine Besylate (Norvasc) 5 mg BID PRN PO ELEVATED BP, SEE COMMENTS Last administered on 03/30/18at 15:29; Start 03/30/18 at 15:30 Carvedilol (Coreg) 12.5 mg 1X ONCE PO Last administered on 03/30/18at 18:05; Start 03/30/18 at 18:00; Stop 03/30/18 at 18:01; Status DC Carvedilol (Coreg) 25 mg BIDWMEALS PO Last administered on 04/04/18at 16:55; Start 03/31/18 at 08:00 Quetiapine Fumarate (SEROquel) 12.5 mg 1X ONCE PO Last administered on at 18:21; Start 03/31/18 at 18:15; Stop 03/31/18 at 18:18; Status DC Quetiapine Fumarate (SEROquel) 12.5 mg BID@0900,1700 PO Last administered on 08/12at 16:54; Start 04/01/18 at 09:00 Hydroxyzine HCl (Atarax) 25 mg PRN Q2HR PRN PO PSYCHOSIS Last administered on at 00:01; Start 04/03/18 at 23:15 Active Scripts Active Coumadin (Warfarin Sodium) 3 Mg Tablet 1 Tab PO DAILY Coreg (Carvedilol) 12.5 Mg Tablet 1 Tab PO BID Reported Vitamin D3 (Cholecalciferol (Vitamin D3)) 50,000 Unit Capsule 50,000 Unit PO WEEKLY Vitamin B-12 (Cyanocobalamin (Vitamin B-12)) 1,000 Mcg Tablet 1,000 Mcg PO DAILY Probiotic (Saccharomyces Boulardii) 250 Mg Capsule 250 Mg PO DAILY Norvasc (Amlodipine Besylate) 5 Mg Tablet 5 Mg PO DAILY Nephro-Vikram Tablet (Folic Acid/Vitamin B Comp W-C) 0.8 Mg Tablet 1 Tab PO DAILY PRN EXELON 9.5mg/24hr (Rivastigmine) 1 Each Patch.td24 1 Patch TD DAILY Saline Nasal [place] (Sodium Chloride) 30 Ml [place] 30 Ml NS TID Mag-Al Plus Xs Suspension (Mag Hydrox/Al Hydrox/Simeth) 30 Ml Oral.susp 15 Ml PO PRN Q6HRS PRN Potassium Chloride Oral Liquid (Potassium Chloride) 20 Meq/15 Ml Liquid 20 Meq PO 3X/WEEK Administer on Thursday, Thursday and Thursday Thera-M Tablet (Multivits,Ca,Minerals/Iron/Fa) 1 Each Tablet 1 Tab PO DAILY Namenda (Memantine Hcl) 5 Mg Tablet 10 Mg PO BID Voltaren (Diclofenac Sodium) 100 Gm Gel..gram. 1 Evan TP PRN Q12HR PRN Systane 0.3-0.4% Eye Drops (Propylene Glycol/Peg 400) 15 Ml Drops 2 Drop OU PRN QID PRN Senokot-S Tablet (Sennosides/Docusate Sodium) 1 Each Tablet 1 Tab PO BID Milk Of Magnesia (Magnesium Hydroxide) 2,400 Mg/10 Ml Oral.susp 30 Ml PO PRN QHS PRN Imodium A-D (Loperamide Hcl) 1 Mg/7.5 Ml Liquid 2 Mg PO PRN Q2HR PRN Max dose of 16mg in 24 hours Dulcolax (Bisacodyl) 10 Mg Supp.rect 10 Mg RC PRN DAILY PRN Atorvastatin Calcium 20 Mg Tablet 20 Mg PO QHS Aspir-Low (Aspirin) 81 Mg Tablet.dr 81 Mg PO DAILY Proair Hfa Inhaler (Albuterol Sulfate) 8.5 Gm Hfa.aer.ad 1 Puff INH PRN Q6HRS PRN Acetaminophen 500 Mg Tablet 500 Mg PO PRN Q4HRS PRN NTE 3000mg APAP in 24 hours from all sources I have reviewed the current psychotropics carefully including drug interactions. Risk benefit ratio favors no change other than as noted in my dictated progress note. Diagnosis: Problems: (1) Agitation (2) Acute ischemic stroke (3) Syncope (4) Hemiplegia affecting left nondominant side (5) TIA (transient ischemic attack) (6) Hypertension (7) Anxiety disorder (8) Dementia, vascular, with delusions (9) Dementia, vascular, with depression (10) Impulse control disorder (11) Acute kidney injury DEAN GARDNER MD Apr 04, 2018 20:32
--- NOTE | 2018-04-05 00:04 | NUR ---
Nursing Note Patient is found in day room for shift assessment. Patient is calm and compliant with assessment and medication pass. Patient prefers medications floated in apple sauce. Patient is alert and oriented to self only. Patient interactive with this nurse during assessment. Patient currently sleeping in bed.
[2018-04-05 06:30] VITALS: BP 164/85
[2018-04-05] MEDS: CYANOCOBALAMIN (VITAMIN B-12) 1,000 MCG TABLET. PO SCH (09:05)
[2018-04-05] MEDS: SENNOSIDES/DOCUSATE 8.6/50MG TABLET. PO SCH ×2 (09:05→19:24)
[2018-04-05] MEDS: LACTOBACILLUS RHAMNOSUS GG 1 CAPSULE. PO SCH ×2 (09:05→19:24)
[2018-04-05] MEDS: CEFPODOXIME PROXETIL 100 MG TABLET PO SCH ×2 (09:06→19:24)
[2018-04-05] MEDS: CARVEDILOL 12.5 MG TABLET PO SCH ×2 (09:06→17:28)
[2018-04-05] MEDS: POTASSIUM CHLORIDE 20 MEQ TABLET.ER. PO SCH (09:06)
[2018-04-05] MEDS: RIVASTIGMINE 9.5MG PATCH. TD SCH (09:07)
[2018-04-05] MEDS: MULTIVITAMIN with MINERAL TABLET. PO SCH (09:07)
[2018-04-05] MEDS: QUEtiapine 25 MG TABLET. PO SCH ×2 (09:07→17:28)
[2018-04-05] MEDS: MEMANTINE 10 MG TABLET. PO SCH ×2 (09:07→19:24)
[2018-04-05] MEDS: ASPIRIN ENTERIC COATED 81 MG TABLET.DR. PO SCH (09:08)
[2018-04-05] MEDS: amLODIPine BESYLATE 5 MG TABLET PO SCH (09:08)
--- NOTE | 2018-04-05 14:35 | NUR ---
Behavior Intervention Response and Plan: BIRP Note: Behavior: Assumed Care of patient, patient located in Dining Room at shift change. Patient exhibited the following behavior Calm, Interactive, Compliant. Brief assessment on rounds of vital signs, medication needs, lab studies, and pain. Treatment plan problems 1-2. Intervention: Patient assessed and the following interventions initiated safety checks 15 Minute Checks Cognitive Assessment , Head to toe Assessment , Medications. Response: After interactions and interventions patient responded in the following manner, Calm , Compliant ,Cooperative. Continue to assess behaviors and condition will continue to monitor throughout the shift as needed. Patient educated on ADL's, and hand hygiene. 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 Continue to assess patient for changes in above assessment. Monitor for medication needs, pain, and safety concerns. Hourly rounding performed to ensure safe environment.
[2018-04-05 16:07] VITALS: BP 174/85
[2018-04-05] MEDS: WARFARIN 3 MG TABLET. PO SCH (17:28)
[2018-04-05] MEDS ORDERED: WARFARIN 1 MG TABLET. PO ONE (17:45)
[2018-04-05] MEDS: ATORVASTATIN CALCIUM 20 MG TABLET PO SCH (19:24)
--- NOTE | 2018-04-05 20:30 | PN ---
DATE: 04/03/2018 This is a late entry 04/03/2018, covers elements not covered in my initial note. SUBJECTIVE: I met with the patient in the evening. Overall, the patient remains somewhat confused, but more appropriate, redirectable. REVIEW OF SYSTEMS: Ambulation impaired, in Broda chair. No CV, , pulmonary, eye, ENT system symptoms on review. MENTAL STATUS EXAM: Oriented to himself. Insight, judgment, recent and remote memory, attention, concentration, fund of knowledge poor, consistent with his diagnosis mentioned in my initial note. PLAN: Continue current psychotropics from initial note. Adjust as clinically indicated. If symptoms of PTSD are evident, we will add prazosin. Around 11:00 p.m. at night, well after my rounds, I got a call from nursing staff. The patient was seeing snakes all around him on the baez and trying to get them. He is quite agitated, restless. We did add Zyprexa p.r.n. Again, decide on the prazosin in a day or so. DEAN GARDNER MD DR: [email or web address]/rose JOB#: [id number] / [id number]
--- NOTE | 2018-04-05 20:53 | PDOC ---
Exam Note: [place] Note: Please also refer to the separate dictated note~for this date of service dictated separately.~Patient seen individually. Discussed the patient with Nursing staff reviewed the chart.~Reviewed interim history and current functioning. Reviewed vital signs,~Labs/ Radiology~and current medications noted below. Continue current treatment with the changes noted in the dictated addendum note Assessment: Vital Signs: Vital Signs Date Time Temp Pulse Resp B/P (MAP) Pulse Ox O2 Delivery O2 Flow Rate FiO2 04/05/18 19:34 71 174/85 04/05/18 16:07 97.1 16 100 04/03/18 08:21 Room Air I&O Intake and Output 04/05/18 07:00 Intake Total 600 ml Balance 600 ml Intake Oral 600 ml # Bowel Movements 1 Labs: Laboratory Tests Test 04/05/18 07:12 Prothrombin Time 14.0 SEC (9.4-11.4) H Prothrombin Time INR 1.4 (0.9-1.1) H Current Medications: Meds: Current Medications Acetaminophen (Tylenol) 650 mg PRN Q6HRS PRN PO PAIN / TEMP; Start 03/29/18 at 16:30; Status Cancel Multi-Ingredient Ointment (Analgesic [place]) 1 evan PRN QID PRN TP MUSCLE PAIN; Start 03/29/18 at 16:30 Al Hydroxide/Mg Hydroxide (Mylanta Plus Xs) 15 ml PRN AFTMEALHC PRN PO DYSPEPSIA; Start 03/29/18 at 16:30 Magnesium Hydroxide (Milk Of Magnesia) 2,400 mg PRN QHS PRN PO CONSTIPATION; Start 03/29/18 at 16:30 Albuterol Sulfate (Ventolin Hfa) 1 puff PRN Q6HRS PRN INH SHORTNESS OF BREATH; Start 03/29/18 at 17:00; Status UNV Atorvastatin Calcium (Lipitor) 20 mg QHS PO Last administered on 04/05/18at 19: 24; Start 03/29/18 at 21:00 Vitamin D (Vitamin D3) 50,000 unit WEEKLY PO Last administered on 04/03/18at 08: 37; Start 04/03/18 at 09:00 Cyanocobalamin (Vitamin B-12) 1,000 mcg DAILY PO Last administered on at 09:05; Start 03/30/18 at 09:00 Diclofenac Sodium (Voltaren) 1 evan PRN Q12HR PRN TP PAIN; Start 03/29/18 at 17: 00 Al Hydroxide/Mg Hydroxide (Mylanta Plus Xs) 15 ml PRN Q6HRS PRN PO DYSPEPSIA; Start 03/29/18 at 17:00; Status Cancel Multivitamins/ Calcium (Thera-M Plus) 1 tab DAILY PO Last administered on 09:07; Start 03/30/18 at 09:00 Lactobacillus Rhamnosus (Culturelle) 1 cap BID PO Last administered on 19:24; Start 03/29/18 at 21:00 Senna/Docusate Sodium (Senna Plus) 1 tab BID PO Last administered on 04/05/18 19:24; Start 03/29/18 at 21:00 Acetaminophen (Tylenol) 500 mg PRN Q4HRS PRN PO PAIN / TEMP; Start 03/29/18 at 17:45 Amlodipine Besylate (Norvasc) 5 mg DAILY PO Last administered on 04/05/18at 09: 08; Start 03/30/18 at 09:00 Aspirin (Aspirin Enteric Coated) 81 mg DAILY PO Last administered on 04/05/18 09:08; Start 03/30/18 at 09:00 Bisacodyl (Dulcolax Supp) 10 mg PRN DAILY PRN [place] CONSTIPATION; Start 03/29/18 at 17:45 Carvedilol (Coreg) 12.5 mg BIDWMEALS PO Last administered on 03/30/18 16:44; Start 03/30/18 at 08:00; Stop 03/30/18 at 17:57; Status DC Multivit/Ca Carb/ B Cmplx/FA/Prenat (Nephro-Vikram) 1 tab PRN DAILY PRN PO SUPPLEMENT; Start 03/30/18 at 09:00 Loperamide HCl (Imodium) 2 mg PRN Q2HR PRN PO DIARRHEA; Start 03/29/18 at 17:45 Non-Formulary Medication (Magnesium Hydroxide (Milk Of Magnesia)) 30 ml PRN QHS PRN PO CONSTIPATION; Start 03/29/18 at 17:00; Status UNV Memantine (Namenda) 10 mg BID PO Last administered on 6/11/18at 19:24; Start at 21:00 Potassium Chloride (Klor-Con) 20 meq 3X/WEEK PO Last administered on 04/05/18at 09:06; Start 03/31/18 at 09:00 Artificial Tears (Artificial Tears) 2 drop PRN QID PRN OU DRY EYE; Start at 18:00 Rivastigmine (Exelon) 1 patch DAILY TD Last administered on 04/05/18at 09:07; Start 03/30/18 at 09:00 Sodium Chloride (Saline Mist Nasal) 1 evan PRN TID PRN NS NASAL CONGESTION; Start 03/29/18 at 18:00 Warfarin Sodium (Coumadin) 3 mg DAILY16 PO Last administered on 04/05/18 17:28 ; Start 03/29/18 at 18:00; Stop 04/05/18 at 17:37; Status DC Ondansetron HCl (Zofran Odt) 4 mg PRN Q4HRS PRN PO NAUSEA/VOMITING; Start at 17:30 Albuterol Sulfate (Ventolin) 2.5 mg PRN Q6HRS PRN NEB SHORTNESS OF BREATH; Start 03/29/18 at 18:00 Warfarin Sodium (Coumadin Per Physician) 1 each PRN DAILY PRN [facility] SEE COMMENTS; Start 03/29/18 at 18:00 Olanzapine (ZyPREXA ZYDIS) 2.5 mg PRN Q2HR PRN PO PSYCHOSIS Last administered on 04/03/18at 22:55; Start 03/29/18 at 19:15 Cefpodoxime Proxetil (Vantin) 100 mg BID PO Last administered on 04/05/18at 19: 24; Start 03/29/18 at 21:00; Stop 04/05/18 at 23:00 Amlodipine Besylate (Norvasc) 5 mg BID PRN PO ELEVATED BP, SEE COMMENTS Last administered on 03/30/18at 15:29; Start 03/30/18 at 15:30 Carvedilol (Coreg) 12.5 mg 1X ONCE PO Last administered on 03/30/18 18:05; Start 03/30/18 at 18:00; Stop 03/30/18 at 18:01; Status DC Carvedilol (Coreg) 25 mg BIDWMEALS PO Last administered on 6/11/18at 17:28; Start 03/31/18 at 08:00 Quetiapine Fumarate (SEROquel) 12.5 mg 1X ONCE PO Last administered on at 18:21; Start 03/31/18 at 18:15; Stop 03/31/18 at 18:18; Status DC Quetiapine Fumarate (SEROquel) 12.5 mg BID@0900,1700 PO Last administered on 09/12at 17:28; Start 04/01/18 at 09:00 Hydroxyzine HCl (Atarax) 25 mg PRN Q2HR PRN PO PSYCHOSIS Last administered on at 00:01; Start 04/03/18 at 23:15 Warfarin Sodium (Coumadin) 4 mg DAILY PO ; Start 04/06/18 at 16:00 Warfarin Sodium (Coumadin) 1 mg 1X ONCE PO Last administered on 04/05/18at 17: 45; Start 04/05/18 at 17:45; Stop 04/05/18 at 17:46; Status DC Prazosin HCl (Minipress) 1 mg HS PO Last administered on 04/05/18at 19:34; Start 04/05/18 at 21:00 Active Scripts Active Coumadin (Warfarin Sodium) 3 Mg Tablet 1 Tab PO DAILY Coreg (Carvedilol) 12.5 Mg Tablet 1 Tab PO BID Reported Vitamin D3 (Cholecalciferol (Vitamin D3)) 50,000 Unit Capsule 50,000 Unit PO WEEKLY Vitamin B-12 (Cyanocobalamin (Vitamin B-12)) 1,000 Mcg Tablet 1,000 Mcg PO DAILY Probiotic (Saccharomyces Boulardii) 250 Mg Capsule 250 Mg PO DAILY Norvasc (Amlodipine Besylate) 5 Mg Tablet 5 Mg PO DAILY Nephro-Vikram Tablet (Folic Acid/Vitamin B Comp W-C) 0.8 Mg Tablet 1 Tab PO DAILY PRN EXELON 9.5mg/24hr (Rivastigmine) 1 Each Patch.td24 1 Patch TD DAILY Saline Nasal [place] (Sodium Chloride) 30 Ml [place] 30 Ml NS TID Mag-Al Plus Xs Suspension (Mag Hydrox/Al Hydrox/Simeth) 30 Ml Oral.susp 15 Ml PO PRN Q6HRS PRN Potassium Chloride Oral Liquid (Potassium Chloride) 20 Meq/15 Ml Liquid 20 Meq PO 3X/WEEK Administer on Thursday, Thursday and Thursday Thera-M Tablet (Multivits,Ca,Minerals/Iron/Fa) 1 Each Tablet 1 Tab PO DAILY Namenda (Memantine Hcl) 5 Mg Tablet 10 Mg PO BID Voltaren (Diclofenac Sodium) 100 Gm Gel..gram. 1 Evan TP PRN Q12HR PRN Systane 0.3-0.4% Eye Drops (Propylene Glycol/Peg 400) 15 Ml Drops 2 Drop OU PRN QID PRN Senokot-S Tablet (Sennosides/Docusate Sodium) 1 Each Tablet 1 Tab PO BID Milk Of Magnesia (Magnesium Hydroxide) 2,400 Mg/10 Ml Oral.susp 30 Ml PO PRN QHS PRN Imodium A-D (Loperamide Hcl) 1 Mg/7.5 Ml Liquid 2 Mg PO PRN Q2HR PRN Max dose of 16mg in 24 hours Dulcolax (Bisacodyl) 10 Mg Supp.rect 10 Mg RC PRN DAILY PRN Atorvastatin Calcium 20 Mg Tablet 20 Mg PO QHS Aspir-Low (Aspirin) 81 Mg Tablet.dr 81 Mg PO DAILY Proair Hfa Inhaler (Albuterol Sulfate) 8.5 Gm Hfa.aer.ad 1 Puff INH PRN Q6HRS PRN Acetaminophen 500 Mg Tablet 500 Mg PO PRN Q4HRS PRN NTE 3000mg APAP in 24 hours from all sources I have reviewed the current psychotropics carefully including drug interactions. Risk benefit ratio favors no change other than as noted in my dictated progress note. Diagnosis: Problems: (1) Agitation (2) Acute ischemic stroke (3) Syncope (4) Hemiplegia affecting left nondominant side (5) TIA (transient ischemic attack) (6) Hypertension (7) Anxiety disorder (8) Dementia, vascular, with delusions (9) Dementia, vascular, with depression (10) Impulse control disorder (11) Acute kidney injury DEAN GARDNER MD Apr 05, 2018 20:53
[2018-04-05] MEDS ORDERED: PRAZOSIN 1 MG CAPSULE. PO SCH (21:00)
--- NOTE | 2018-04-05 21:00 | NUR ---
Nursing note: Assumed care of pt in dayroom. He was quietly watching television and was in good spirits, smiling, cooperative, and compliant w/ meds and assessment.
--- NOTE | 2018-04-06 02:12 | PN ---
DATE: 04/04/2018 This late entry 04/04/2018 covers elements not covered in my initial note. SUBJECTIVE: I met with the patient in the evening. The patient slept 2-3/4 hours previous evening. He was extremely agitated, labile abrasive, aggressive. Nursing staff had called me around midnight. He was seeing snakes around him and on his chair, hyper-anabaptism, felt there was Oreo cookies crawling on the floor. REVIEW OF SYSTEMS: Ambulation impaired, in Broda chair. No CV, , pulmonary, eye, ENT system symptoms on review. MENTAL STATUS EXAM: Oriented to himself. Insight, judgment, recent and remote memory, attention, concentration, fund of knowledge poor, consistent with his diagnosis from initial note. PLAN: Continue current psychotropics, may need to increase Zyprexa or add Remeron or trazodone for insomnia. MAN Beny GARDNER MD DR: DAMIEN/rose JOB#: [id number] / [id number]
[2018-04-06 05:53] VITALS: BP 152/88
[2018-04-06] MEDS: MEMANTINE 10 MG TABLET. PO SCH ×2 (08:19→19:34)
[2018-04-06] MEDS: CYANOCOBALAMIN (VITAMIN B-12) 1,000 MCG TABLET. PO SCH (08:19)
[2018-04-06] MEDS: RIVASTIGMINE 9.5MG PATCH. TD SCH (08:19)
[2018-04-06] MEDS: MULTIVITAMIN with MINERAL TABLET. PO SCH (08:19)
[2018-04-06] MEDS: LACTOBACILLUS RHAMNOSUS GG 1 CAPSULE. PO SCH ×2 (08:19→19:33)
[2018-04-06] MEDS: SENNOSIDES/DOCUSATE 8.6/50MG TABLET. PO SCH ×2 (08:19→19:34)
[2018-04-06] MEDS: CARVEDILOL 12.5 MG TABLET PO SCH ×2 (08:20→18:21)
[2018-04-06] MEDS: QUEtiapine 25 MG TABLET. PO SCH ×2 (08:21→18:21)
[2018-04-06] MEDS: ASPIRIN ENTERIC COATED 81 MG TABLET.DR. PO SCH (08:21)
[2018-04-06] MEDS: amLODIPine BESYLATE 5 MG TABLET PO SCH (08:21)
--- NOTE | 2018-04-06 15:00 | NUR ---
SW met w/pt as pt lay in his bed yelling out for "help". 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 Pt then yelled out his [facility] and told this SW he would be hung from the dock if he missed his ship. Pt continued to beg for this SW's help to get out of bed so that he could drive his car that was located in the parking lot and get back to his ship. Pt also told this SW he needed to complete his time in the [employer] so that he could provide for his 8 year old son. SW attempted to reorient pt to present day several different times to help calm pt, and at times, pt was able to calm down briefly. 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
[2018-04-06 16:49] VITALS: BP 136/69
[2018-04-06] MEDS: WARFARIN 4 MG TABLET. PO SCH (18:21)
[2018-04-06] MEDS: ATORVASTATIN CALCIUM 20 MG TABLET PO SCH (19:34)
[2018-04-06] MEDS: PRAZOSIN 1 MG CAPSULE. PO SCH (19:36)
--- NOTE | 2018-04-06 20:12 | PDOC ---
Exam Note: [place] Note: Please also refer to the separate dictated note~for this date of service dictated separately.~Patient seen individually. Discussed the patient with Nursing staff reviewed the chart.~Reviewed interim history and current functioning. Reviewed vital signs,~Labs/ Radiology~and current medications noted below. Continue current treatment with the changes noted in the dictated addendum note Assessment: Vital Signs: Vital Signs Date Time Temp Pulse Resp B/P (MAP) Pulse Ox O2 Delivery O2 Flow Rate FiO2 04/06/18 19:36 65 136/69 04/06/18 16:49 97.5 22 98 Room Air I&O Intake and Output 04/06/18 07:00 Intake Total 840 ml Balance 840 ml Intake Oral 840 ml Current Medications: Meds: Current Medications Acetaminophen (Tylenol) 650 mg PRN Q6HRS PRN PO PAIN / TEMP; Start 03/29/18 at 16:30; Status Cancel Multi-Ingredient Ointment (Analgesic [place]) 1 evan PRN QID PRN TP MUSCLE PAIN; Start 03/29/18 at 16:30 Al Hydroxide/Mg Hydroxide (Mylanta Plus Xs) 15 ml PRN AFTMEALHC PRN PO DYSPEPSIA; Start 03/29/18 at 16:30 Magnesium Hydroxide (Milk Of Magnesia) 2,400 mg PRN QHS PRN PO CONSTIPATION; Start 03/29/18 at 16:30 Albuterol Sulfate (Ventolin Hfa) 1 puff PRN Q6HRS PRN INH SHORTNESS OF BREATH; Start 03/29/18 at 17:00; Status UNV Atorvastatin Calcium (Lipitor) 20 mg QHS PO Last administered on 04/06/18at 19: 34; Start 03/29/18 at 21:00 Vitamin D (Vitamin D3) 50,000 unit WEEKLY PO Last administered on 04/03/18at 08: 37; Start 04/03/18 at 09:00 Cyanocobalamin (Vitamin B-12) 1,000 mcg DAILY PO Last administered on at 08:19; Start 03/30/18 at 09:00 Diclofenac Sodium (Voltaren) 1 evan PRN Q12HR PRN TP PAIN; Start 03/29/18 at 17: 00 Al Hydroxide/Mg Hydroxide (Mylanta Plus Xs) 15 ml PRN Q6HRS PRN PO DYSPEPSIA; Start 03/29/18 at 17:00; Status Cancel Multivitamins/ Calcium (Thera-M Plus) 1 tab DAILY PO Last administered on 08:19; Start 03/30/18 at 09:00 Lactobacillus Rhamnosus (Culturelle) 1 cap BID PO Last administered on 19:33; Start 03/29/18 at 21:00 Senna/Docusate Sodium (Senna Plus) 1 tab BID PO Last administered on 04/06/18 19:34; Start 03/29/18 at 21:00 Acetaminophen (Tylenol) 500 mg PRN Q4HRS PRN PO PAIN / TEMP; Start 03/29/18 at 17:45 Amlodipine Besylate (Norvasc) 5 mg DAILY PO Last administered on 04/06/18 08: 21; Start 03/30/18 at 09:00 Aspirin (Aspirin Enteric Coated) 81 mg DAILY PO Last administered on 04/06/18 08:21; Start 03/30/18 at 09:00 Bisacodyl (Dulcolax Supp) 10 mg PRN DAILY PRN [place] CONSTIPATION; Start 03/29/18 at 17:45 Carvedilol (Coreg) 12.5 mg BIDWMEALS PO Last administered on 03/30/18 16:44; Start 03/30/18 at 08:00; Stop 03/30/18 at 17:57; Status DC Multivit/Ca Carb/ B Cmplx/FA/Prenat (Nephro-Vikram) 1 tab PRN DAILY PRN PO SUPPLEMENT; Start 03/30/18 at 09:00 Loperamide HCl (Imodium) 2 mg PRN Q2HR PRN PO DIARRHEA; Start 03/29/18 at 17:45 Non-Formulary Medication (Magnesium Hydroxide (Milk Of Magnesia)) 30 ml PRN QHS PRN PO CONSTIPATION; Start 03/29/18 at 17:00; Status UNV Memantine (Namenda) 10 mg BID PO Last administered on 04/06/18 19:34; Start at 21:00 Potassium Chloride (Klor-Con) 20 meq 3X/WEEK PO Last administered on 04/05/18at 09:06; Start 03/31/18 at 09:00 Artificial Tears (Artificial Tears) 2 drop PRN QID PRN OU DRY EYE; Start at 18:00 Rivastigmine (Exelon) 1 patch DAILY TD Last administered on 04/06/18at 08:19; Start 03/30/18 at 09:00 Sodium Chloride (Saline Mist Nasal) 1 evan PRN TID PRN NS NASAL CONGESTION; Start 03/29/18 at 18:00 Warfarin Sodium (Coumadin) 3 mg DAILY16 PO Last administered on 04/05/18at 17:28 ; Start 03/29/18 at 18:00; Stop 04/05/18 at 17:37; Status DC Ondansetron HCl (Zofran Odt) 4 mg PRN Q4HRS PRN PO NAUSEA/VOMITING; Start at 17:30 Albuterol Sulfate (Ventolin) 2.5 mg PRN Q6HRS PRN NEB SHORTNESS OF BREATH; Start 03/29/18 at 18:00 Warfarin Sodium (Coumadin Per Physician) 1 each PRN DAILY PRN MC SEE COMMENTS; Start 03/29/18 at 18:00 Olanzapine (ZyPREXA ZYDIS) 2.5 mg PRN Q2HR PRN PO PSYCHOSIS Last administered on 04/06/18at 11:04; Start 03/29/18 at 19:15 Cefpodoxime Proxetil (Vantin) 100 mg BID PO Last administered on 04/05/18at 19: 24; Start 03/29/18 at 21:00; Stop 04/05/18 at 23:00; Status DC Amlodipine Besylate (Norvasc) 5 mg BID PRN PO ELEVATED BP, SEE COMMENTS Last administered on 03/30/18at 15:29; Start 03/30/18 at 15:30; Stop 04/06/18 at 19:36; Status DC Carvedilol (Coreg) 12.5 mg 1X ONCE PO Last administered on 03/30/18at 18:05; Start 03/30/18 at 18:00; Stop 03/30/18 at 18:01; Status DC Carvedilol (Coreg) 25 mg BIDWMEALS PO Last administered on 04/06/18at 18:21; Start 03/31/18 at 08:00 Quetiapine Fumarate (SEROquel) 12.5 mg 1X ONCE PO Last administered on at 18:21; Start 03/31/18 at 18:15; Stop 03/31/18 at 18:18; Status DC Quetiapine Fumarate (SEROquel) 12.5 mg BID@0900,1700 PO Last administered on 10/12at 18:21; Start 04/01/18 at 09:00 Hydroxyzine HCl (Atarax) 25 mg PRN Q2HR PRN PO PSYCHOSIS Last administered on at 00:01; Start 04/03/18 at 23:15 Warfarin Sodium (Coumadin) 4 mg DAILY PO Last administered on 04/06/18at 18:21; Start 04/06/18 at 16:00 Warfarin Sodium (Coumadin) 1 mg 1X ONCE PO Last administered on 04/05/18at 17: 45; Start 04/05/18 at 17:45; Stop 04/05/18 at 17:46; Status DC Prazosin HCl (Minipress) 1 mg HS PO Last administered on 04/05/18at 19:34; Start 04/05/18 at 21:00; Stop 04/06/18 at 18:03; Status DC Prazosin HCl (Minipress) 2 mg HS PO Last administered on 04/06/18at 19:36; Start 04/06/18 at 21:00 Active Scripts Active Coumadin (Warfarin Sodium) 3 Mg Tablet 1 Tab PO DAILY Coreg (Carvedilol) 12.5 Mg Tablet 1 Tab PO BID Reported Vitamin D3 (Cholecalciferol (Vitamin D3)) 50,000 Unit Capsule 50,000 Unit PO WEEKLY Vitamin B-12 (Cyanocobalamin (Vitamin B-12)) 1,000 Mcg Tablet 1,000 Mcg PO DAILY Probiotic (Saccharomyces Boulardii) 250 Mg Capsule 250 Mg PO DAILY Norvasc (Amlodipine Besylate) 5 Mg Tablet 5 Mg PO DAILY Nephro-Vikram Tablet (Folic Acid/Vitamin B Comp W-C) 0.8 Mg Tablet 1 Tab PO DAILY PRN EXELON 9.5mg/24hr (Rivastigmine) 1 Each Patch.td24 1 Patch TD DAILY Saline Nasal [place] (Sodium Chloride) 30 Ml [place] 30 Ml NS TID Mag-Al Plus Xs Suspension (Mag Hydrox/Al Hydrox/Simeth) 30 Ml Oral.susp 15 Ml PO PRN Q6HRS PRN Potassium Chloride Oral Liquid (Potassium Chloride) 20 Meq/15 Ml Liquid 20 Meq PO 3X/WEEK Administer on Thursday, Thursday and Thursday Thera-M Tablet (Multivits,Ca,Minerals/Iron/Fa) 1 Each Tablet 1 Tab PO DAILY Namenda (Memantine Hcl) 5 Mg Tablet 10 Mg PO BID Voltaren (Diclofenac Sodium) 100 Gm Gel..gram. 1 Evan TP PRN Q12HR PRN Systane 0.3-0.4% Eye Drops (Propylene Glycol/Peg 400) 15 Ml Drops 2 Drop OU PRN QID PRN Senokot-S Tablet (Sennosides/Docusate Sodium) 1 Each Tablet 1 Tab PO BID Milk Of Magnesia (Magnesium Hydroxide) 2,400 Mg/10 Ml Oral.susp 30 Ml PO PRN QHS PRN Imodium A-D (Loperamide Hcl) 1 Mg/7.5 Ml Liquid 2 Mg PO PRN Q2HR PRN Max dose of 16mg in 24 hours Dulcolax (Bisacodyl) 10 Mg Supp.rect 10 Mg RC PRN DAILY PRN Atorvastatin Calcium 20 Mg Tablet 20 Mg PO QHS Aspir-Low (Aspirin) 81 Mg Tablet.dr 81 Mg PO DAILY Proair Hfa Inhaler (Albuterol Sulfate) 8.5 Gm Hfa.aer.ad 1 Puff INH PRN Q6HRS PRN Acetaminophen 500 Mg Tablet 500 Mg PO PRN Q4HRS PRN NTE 3000mg APAP in 24 hours from all sources I have reviewed the current psychotropics carefully including drug interactions. Risk benefit ratio favors no change other than as noted in my dictated progress note. Diagnosis: Problems: (1) Agitation (2) Acute ischemic stroke (3) Syncope (4) Hemiplegia affecting left nondominant side (5) TIA (transient ischemic attack) (6) Hypertension (7) Anxiety disorder (8) Dementia, vascular, with delusions (9) Dementia, vascular, with depression (10) Impulse control disorder (11) Acute kidney injury DEAN GARDNER MD Apr 06, 2018 20:12
--- NOTE | 2018-04-06 20:54 | NUR ---
Nursing note: Assumed care of patient in the hallway. He was pleasant and cooperative with meds and assessment. He was confused as he said he needed to get out of his chair so he could go get his truck. He told me he could walk just fine.
[2018-04-06] MEDS: hydrOXYzine HCL 25 MG TABLET PO PRN (21:24)
--- NOTE | 2018-04-06 23:52 | PN ---
DATE: 04/05/2018 This is a late entry for 04/05/2018 covers elements not covered in my initial note. SUBJECTIVE: I met with the patient in the evening. The patient has had a good day, less labile, but does get quite overreactive in the evening, consistent with his PTSD diagnosis. The patient slept 6-1/4 hours previous evening. REVIEW OF SYSTEMS: Ambulation impaired, in wheelchair. No CV, , pulmonary, eye, ENT system symptoms on review. MENTAL STATUS EXAM: Oriented to himself. Insight, judgment, recent memory is impaired, remote is better. Language function intact, attention span short. Mood and affect remain somewhat labile, but improved. LABORATORY DATA: Reviewed. IMPRESSION: Unchanged from initial note, major depressive disorder, recurrent. Major neurocognitive disorder, Alzheimer, vascular with delusion, depression, posttraumatic stress disorder. PLAN: Start prazosin 1 mg at bedtime for PTSD symptoms. Continue rest unchanged from initial note. MAN Beny GARDNER MD DR: DAMIEN/rose JOB#: [id number] / [id number]
[2018-04-07 06:16] VITALS: BP 155/87
[2018-04-07] MEDS: RIVASTIGMINE 9.5MG PATCH. TD SCH (08:22)
[2018-04-07] MEDS: ASPIRIN ENTERIC COATED 81 MG TABLET.DR. PO SCH (08:23)
[2018-04-07] MEDS: LACTOBACILLUS RHAMNOSUS GG 1 CAPSULE. PO SCH ×2 (08:23→19:50)
[2018-04-07] MEDS: POTASSIUM CHLORIDE 20 MEQ TABLET.ER. PO SCH (08:23)
[2018-04-07] MEDS: amLODIPine BESYLATE 5 MG TABLET PO SCH (08:23)
[2018-04-07] MEDS: CARVEDILOL 12.5 MG TABLET PO SCH ×2 (08:23→17:34)
[2018-04-07] MEDS: SENNOSIDES/DOCUSATE 8.6/50MG TABLET. PO SCH ×2 (08:24→19:51)
[2018-04-07] MEDS: CYANOCOBALAMIN (VITAMIN B-12) 1,000 MCG TABLET. PO SCH (08:24)
[2018-04-07] MEDS: WARFARIN 4 MG TABLET. PO SCH (08:24)
[2018-04-07] MEDS: MULTIVITAMIN with MINERAL TABLET. PO SCH (08:25)
[2018-04-07] MEDS: QUEtiapine 25 MG TABLET. PO SCH ×2 (08:25→17:35)
[2018-04-07] MEDS: MEMANTINE 10 MG TABLET. PO SCH ×2 (08:25→19:51)
--- NOTE | 2018-04-07 11:42 | NUR ---
Nursing Note: Pt calm, compliant w/ medications floated in apple sauce, participated w/ morning group activity.
--- NOTE | 2018-04-07 11:43 | NUR ---
Behavior Intervention Response and Plan: BIRP Note: Behavior: Assumed Care of patient, patient located in Dining Room at shift change. Patient exhibited the following behavior Calm, Compliant, Cooperative. Brief assessment on rounds of vital signs, medication needs, lab studies, and pain. Treatment plan problems Ateration in Mood and fall risk. Intervention: Patient assessed and the following interventions initiated safety checks 15 Minute Checks Head to toe Assessment , Cognitive Assessment , Medications. Response: After interactions and interventions patient responded in the following manner, Calm , Cooperative ,Compliant. Continue to assess behaviors and condition will continue to monitor throughout the shift as needed. Patient educated on ADL's, and hand hygiene. 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 Continue to assess patient for changes in above assessment. Monitor for medication needs, pain, and safety concerns. Hourly rounding performed to ensure safe environment.
--- NOTE | 2018-04-07 14:55 | NUR ---
SW faxed updated clinical notes to pt's facility.
--- NOTE | 2018-04-07 15:00 | NUR ---
WEEKLY THERAPEUTIC RECREATION NOTE Date of Admission: 03/29/2018 Date of AT Assessment: 03/30/2018 Goal aimed: Pt will increase his time management and recreation education. Initial goal: Pt will engage in 5 groups per week. Weekly progress towards goal: Achieved Group participation level: Moderate Behaviors observed: Wanders the halls if not interested in group, yelling out at times, demanding, needs reminders Plan: No change to goal.
[2018-04-07 16:28] VITALS: BP 137/65
[2018-04-07] MEDS: ATORVASTATIN CALCIUM 20 MG TABLET PO SCH (19:50)
[2018-04-07] MEDS: PRAZOSIN 1 MG CAPSULE. PO SCH (19:51)
--- NOTE | 2018-04-07 20:42 | NUR ---
Nursing note: Assumed care of pt in his room. He was requesting to get out of bed. He had just been put to bed. He was compliant with meds and assessment. He is resting quietly in bed.
--- NOTE | 2018-04-07 20:57 | PDOC ---
Exam Note: [place] Note: Please also refer to the separate dictated note~for this date of service dictated separately.~Patient seen individually. Discussed the patient with Nursing staff reviewed the chart.~Reviewed interim history and current functioning. Reviewed vital signs,~Labs/ Radiology~and current medications noted below. Continue current treatment with the changes noted in the dictated addendum note Assessment: Vital Signs: Vital Signs Date Time Temp Pulse Resp B/P (MAP) Pulse Ox O2 Delivery O2 Flow Rate FiO2 04/07/18 19:51 65 137/65 04/07/18 16:28 97.6 18 97 04/06/18 16:49 Room Air I&O Intake and Output 04/07/18 07:00 Intake Total 200 ml Balance 200 ml Intake Oral 200 ml Current Medications: Meds: Current Medications Acetaminophen (Tylenol) 650 mg PRN Q6HRS PRN PO PAIN / TEMP; Start 03/29/18 at 16:30; Status Cancel Multi-Ingredient Ointment (Analgesic [place]) 1 evan PRN QID PRN TP MUSCLE PAIN; Start 03/29/18 at 16:30 Al Hydroxide/Mg Hydroxide (Mylanta Plus Xs) 15 ml PRN AFTMEALHC PRN PO DYSPEPSIA; Start 03/29/18 at 16:30 Magnesium Hydroxide (Milk Of Magnesia) 2,400 mg PRN QHS PRN PO CONSTIPATION; Start 03/29/18 at 16:30 Albuterol Sulfate (Ventolin Hfa) 1 puff PRN Q6HRS PRN INH SHORTNESS OF BREATH; Start 03/29/18 at 17:00; Status UNV Atorvastatin Calcium (Lipitor) 20 mg QHS PO Last administered on 04/07/18at 19: 50; Start 03/29/18 at 21:00 Vitamin D (Vitamin D3) 50,000 unit WEEKLY PO Last administered on 04/03/18at 08: 37; Start 04/03/18 at 09:00 Cyanocobalamin (Vitamin B-12) 1,000 mcg DAILY PO Last administered on at 08:24; Start 03/30/18 at 09:00 Diclofenac Sodium (Voltaren) 1 evan PRN Q12HR PRN TP PAIN; Start 03/29/18 at 17: 00 Al Hydroxide/Mg Hydroxide (Mylanta Plus Xs) 15 ml PRN Q6HRS PRN PO DYSPEPSIA; Start 03/29/18 at 17:00; Status Cancel Multivitamins/ Calcium (Thera-M Plus) 1 tab DAILY PO Last administered on 08:25; Start 03/30/18 at 09:00 Lactobacillus Rhamnosus (Culturelle) 1 cap BID PO Last administered on 19:50; Start 03/29/18 at 21:00 Senna/Docusate Sodium (Senna Plus) 1 tab BID PO Last administered on 04/07/18 19:51; Start 03/29/18 at 21:00 Acetaminophen (Tylenol) 500 mg PRN Q4HRS PRN PO PAIN / TEMP; Start 03/29/18 at 17:45 Amlodipine Besylate (Norvasc) 5 mg DAILY PO Last administered on 04/07/18 08: 23; Start 03/30/18 at 09:00 Aspirin (Aspirin Enteric Coated) 81 mg DAILY PO Last administered on 04/07/18 08:23; Start 03/30/18 at 09:00 Bisacodyl (Dulcolax Supp) 10 mg PRN DAILY PRN [place] CONSTIPATION; Start 03/29/18 at 17:45 Carvedilol (Coreg) 12.5 mg BIDWMEALS PO Last administered on 03/30/18 16:44; Start 03/30/18 at 08:00; Stop 03/30/18 at 17:57; Status DC Multivit/Ca Carb/ B Cmplx/FA/Prenat (Nephro-Vikram) 1 tab PRN DAILY PRN PO SUPPLEMENT; Start 03/30/18 at 09:00 Loperamide HCl (Imodium) 2 mg PRN Q2HR PRN PO DIARRHEA; Start 03/29/18 at 17:45 Non-Formulary Medication (Magnesium Hydroxide (Milk Of Magnesia)) 30 ml PRN QHS PRN PO CONSTIPATION; Start 03/29/18 at 17:00; Status UNV Memantine (Namenda) 10 mg BID PO Last administered on 04/07/18 19:51; Start at 21:00 Potassium Chloride (Klor-Con) 20 meq 3X/WEEK PO Last administered on 04/07/18 08:23; Start 03/31/18 at 09:00 Artificial Tears (Artificial Tears) 2 drop PRN QID PRN OU DRY EYE; Start at 18:00 Rivastigmine (Exelon) 1 patch DAILY TD Last administered on 04/07/18at 08:22; Start 03/30/18 at 09:00 Sodium Chloride (Saline Mist Nasal) 1 evan PRN TID PRN NS NASAL CONGESTION; Start 03/29/18 at 18:00 Warfarin Sodium (Coumadin) 3 mg DAILY16 PO Last administered on 04/05/18at 17:28 ; Start 03/29/18 at 18:00; Stop 04/05/18 at 17:37; Status DC Ondansetron HCl (Zofran Odt) 4 mg PRN Q4HRS PRN PO NAUSEA/VOMITING; Start at 17:30 Albuterol Sulfate (Ventolin) 2.5 mg PRN Q6HRS PRN NEB SHORTNESS OF BREATH; Start 03/29/18 at 18:00 Warfarin Sodium (Coumadin Per Physician) 1 each PRN DAILY PRN MC SEE COMMENTS; Start 03/29/18 at 18:00 Olanzapine (ZyPREXA ZYDIS) 2.5 mg PRN Q2HR PRN PO PSYCHOSIS Last administered on 04/06/18at 21:24; Start 03/29/18 at 19:15 Cefpodoxime Proxetil (Vantin) 100 mg BID PO Last administered on 04/05/18at 19: 24; Start 03/29/18 at 21:00; Stop 04/05/18 at 23:00; Status DC Amlodipine Besylate (Norvasc) 5 mg BID PRN PO ELEVATED BP, SEE COMMENTS Last administered on 03/30/18at 15:29; Start 03/30/18 at 15:30; Stop 04/06/18 at 19:36; Status DC Carvedilol (Coreg) 12.5 mg 1X ONCE PO Last administered on 03/30/18at 18:05; Start 03/30/18 at 18:00; Stop 03/30/18 at 18:01; Status DC Carvedilol (Coreg) 25 mg BIDWMEALS PO Last administered on 04/07/18at 17:34; Start 03/31/18 at 08:00 Quetiapine Fumarate (SEROquel) 12.5 mg 1X ONCE PO Last administered on at 18:21; Start 03/31/18 at 18:15; Stop 03/31/18 at 18:18; Status DC Quetiapine Fumarate (SEROquel) 12.5 mg BID@0900,1700 PO Last administered on at 17:35; Start 04/01/18 at 09:00 Hydroxyzine HCl (Atarax) 25 mg PRN Q2HR PRN PO PSYCHOSIS Last administered on at 21:24; Start 04/03/18 at 23:15 Warfarin Sodium (Coumadin) 4 mg DAILY PO Last administered on 04/07/18at 08:24; Start 04/06/18 at 16:00 Warfarin Sodium (Coumadin) 1 mg 1X ONCE PO Last administered on 04/05/18at 17: 45; Start 04/05/18 at 17:45; Stop 04/05/18 at 17:46; Status DC Prazosin HCl (Minipress) 1 mg HS PO Last administered on 04/05/18at 19:34; Start 04/05/18 at 21:00; Stop 04/06/18 at 18:03; Status DC Prazosin HCl (Minipress) 2 mg HS PO Last administered on 04/07/18at 19:51; Start 04/06/18 at 21:00 Active Scripts Active Coumadin (Warfarin Sodium) 3 Mg Tablet 1 Tab PO DAILY Coreg (Carvedilol) 12.5 Mg Tablet 1 Tab PO BID Reported Vitamin D3 (Cholecalciferol (Vitamin D3)) 50,000 Unit Capsule 50,000 Unit PO WEEKLY Vitamin B-12 (Cyanocobalamin (Vitamin B-12)) 1,000 Mcg Tablet 1,000 Mcg PO DAILY Probiotic (Saccharomyces Boulardii) 250 Mg Capsule 250 Mg PO DAILY Norvasc (Amlodipine Besylate) 5 Mg Tablet 5 Mg PO DAILY Nephro-Vikram Tablet (Folic Acid/Vitamin B Comp W-C) 0.8 Mg Tablet 1 Tab PO DAILY PRN EXELON 9.5mg/24hr (Rivastigmine) 1 Each Patch.td24 1 Patch TD DAILY Saline Nasal [place] (Sodium Chloride) 30 Ml [place] 30 Ml NS TID Mag-Al Plus Xs Suspension (Mag Hydrox/Al Hydrox/Simeth) 30 Ml Oral.susp 15 Ml PO PRN Q6HRS PRN Potassium Chloride Oral Liquid (Potassium Chloride) 20 Meq/15 Ml Liquid 20 Meq PO 3X/WEEK Administer on Thursday, Thursday and Thursday Thera-M Tablet (Multivits,Ca,Minerals/Iron/Fa) 1 Each Tablet 1 Tab PO DAILY Namenda (Memantine Hcl) 5 Mg Tablet 10 Mg PO BID Voltaren (Diclofenac Sodium) 100 Gm Gel..gram. 1 Evan TP PRN Q12HR PRN Systane 0.3-0.4% Eye Drops (Propylene Glycol/Peg 400) 15 Ml Drops 2 Drop OU PRN QID PRN Senokot-S Tablet (Sennosides/Docusate Sodium) 1 Each Tablet 1 Tab PO BID Milk Of Magnesia (Magnesium Hydroxide) 2,400 Mg/10 Ml Oral.susp 30 Ml PO PRN QHS PRN Imodium A-D (Loperamide Hcl) 1 Mg/7.5 Ml Liquid 2 Mg PO PRN Q2HR PRN Max dose of 16mg in 24 hours Dulcolax (Bisacodyl) 10 Mg Supp.rect 10 Mg RC PRN DAILY PRN Atorvastatin Calcium 20 Mg Tablet 20 Mg PO QHS Aspir-Low (Aspirin) 81 Mg Tablet.dr 81 Mg PO DAILY Proair Hfa Inhaler (Albuterol Sulfate) 8.5 Gm Hfa.aer.ad 1 Puff INH PRN Q6HRS PRN Acetaminophen 500 Mg Tablet 500 Mg PO PRN Q4HRS PRN NTE 3000mg APAP in 24 hours from all sources I have reviewed the current psychotropics carefully including drug interactions. Risk benefit ratio favors no change other than as noted in my dictated progress note. Diagnosis: Problems: (1) Agitation (2) Acute ischemic stroke (3) Syncope (4) Hemiplegia affecting left nondominant side (5) TIA (transient ischemic attack) (6) Hypertension (7) Anxiety disorder (8) Dementia, vascular, with delusions (9) Dementia, vascular, with depression (10) Impulse control disorder (11) Acute kidney injury DEAN GARDNER MD Apr 07, 2018 20:57
--- NOTE | 2018-04-07 21:49 | PN ---
DATE: 04/06/2018 PSYCHIATRIC PROGRESS NOTE This is a late entry 04/06/2018 covers elements not covered in my initial note 04/06/2018. SUBJECTIVE: I met with the patient in the evening. The patient slept 6-3/4 hours. He has had a very difficult day, per nursing report "bad day." He has had to be in the quiet room to remove him from stimuli around other patients, screaming, hollering with marked mood lability, appeared psychotic at times. REVIEW OF SYSTEMS: No CV, , pulmonary, eye system symptoms on review. Gait unsteady, in wheelchair. MENTAL STATUS EXAM: Oriented to himself. Insight, judgment, recent and remote memory, attention, concentration, fund of knowledge poor, consistent with his diagnosis mentioned in my initial note. IMPRESSION: Unchanged from initial note. PLAN: Increase prazosin from 1 mg at bedtime to 2 mg at bedtime for PTSD symptoms. Continue rest psychotropics unchanged. MAN Beny GARDNER MD DR: DAMIEN/rose JOB#: [id number] / [id number]
[2018-04-08 05:55] VITALS: BP 147/90
[2018-04-08] MEDS: LACTOBACILLUS RHAMNOSUS GG 1 CAPSULE. PO SCH ×2 (09:02→19:21)
[2018-04-08] MEDS: MEMANTINE 10 MG TABLET. PO SCH ×2 (09:03→19:21)
[2018-04-08] MEDS: WARFARIN 4 MG TABLET. PO SCH (09:03)
[2018-04-08] MEDS: MULTIVITAMIN with MINERAL TABLET. PO SCH (09:03)
[2018-04-08] MEDS: CYANOCOBALAMIN (VITAMIN B-12) 1,000 MCG TABLET. PO SCH (09:03)
[2018-04-08] MEDS: QUEtiapine 25 MG TABLET. PO SCH ×2 (09:03→18:41)
[2018-04-08] MEDS: amLODIPine BESYLATE 5 MG TABLET PO SCH (09:05)
[2018-04-08] MEDS: SENNOSIDES/DOCUSATE 8.6/50MG TABLET. PO SCH ×2 (09:05→19:21)
[2018-04-08] MEDS: ASPIRIN ENTERIC COATED 81 MG TABLET.DR. PO SCH (09:05)
[2018-04-08] MEDS: CARVEDILOL 12.5 MG TABLET PO SCH ×2 (09:05→18:41)
[2018-04-08] MEDS: RIVASTIGMINE 9.5MG PATCH. TD SCH (09:06)
[2018-04-08] MEDS: POTASSIUM CHLORIDE 20 MEQ TABLET.ER. PO SCH (09:06)
--- NOTE | 2018-04-08 16:22 | NUR ---
Behavior Intervention Response and Plan: BIRP Note: Behavior: Assumed Care of patient, patient located in Dining Room at shift change. Patient exhibited the following behavior Calm, interactive, Cooperative. Brief assessment on rounds of vital signs, medication needs, lab studies, and pain. Treatment plan problems Ateration in Mood and fall risk. Intervention: Patient assessed and the following interventions initiated safety checks 15 Minute Checks Head to toe Assessment , Cognitive Assessment , Medications. Response: After interactions and interventions patient responded in the following manner, Calm , Interactive ,Compliant. Continue to assess behaviors and condition will continue to monitor throughout the shift as needed. Patient educated on ADL's, and hand hygiene. Plan: Continue to monitor Master Treatment Plan for patient's progress toward short term goals of Decreased Agitation, Decreased Anxiety, skilled nursing goals to return to previous living setting vs placement. Continue to assess patient for changes in above assessment. Monitor for medication needs, pain, and safety concerns. Hourly rounding performed to ensure safe environment.
[2018-04-08 16:51] VITALS: BP 138/72
[2018-04-08] MEDS: PRAZOSIN 1 MG CAPSULE. PO SCH (19:21)
[2018-04-08] MEDS: ATORVASTATIN CALCIUM 20 MG TABLET PO SCH (19:21)
--- NOTE | 2018-04-08 20:19 | NUR ---
Nursing note: Assumed care of patient in hallway. He was very upset d/t wanting to have his shoes on. He was banging on the door and yelling. I went and retrieved his shoes from his closet and he calmed right down. He was very appreciative and was compliant w/meds and assessment. I took him back in to the dayroom where he sat quietly watching TV. He asked for a snack and I gave him crackers w/cheese.
--- NOTE | 2018-04-08 22:29 | PDOC ---
Exam Note: [place] Note: Please also refer to the separate dictated note~for this date of service dictated separately.~Patient seen individually. Discussed the patient with Nursing staff reviewed the chart.~Reviewed interim history and current functioning. Reviewed vital signs,~Labs/ Radiology~and current medications noted below. Continue current treatment with the changes noted in the dictated addendum note Assessment: Vital Signs: Vital Signs Date Time Temp Pulse Resp B/P (MAP) Pulse Ox O2 Delivery O2 Flow Rate FiO2 04/08/18 19:21 65 138/72 04/08/18 16:51 97.6 17 98 Room Air I&O Intake and Output 04/08/18 07:00 Intake Total 920 ml Balance 920 ml Intake Oral 920 ml Current Medications: Meds: Current Medications Acetaminophen (Tylenol) 650 mg PRN Q6HRS PRN PO PAIN / TEMP; Start 03/29/18 at 16:30; Status Cancel Multi-Ingredient Ointment (Analgesic [place]) 1 evan PRN QID PRN TP MUSCLE PAIN; Start 03/29/18 at 16:30 Al Hydroxide/Mg Hydroxide (Mylanta Plus Xs) 15 ml PRN AFTMEALHC PRN PO DYSPEPSIA; Start 03/29/18 at 16:30 Magnesium Hydroxide (Milk Of Magnesia) 2,400 mg PRN QHS PRN PO CONSTIPATION; Start 03/29/18 at 16:30 Albuterol Sulfate (Ventolin Hfa) 1 puff PRN Q6HRS PRN INH SHORTNESS OF BREATH; Start 03/29/18 at 17:00; Status UNV Atorvastatin Calcium (Lipitor) 20 mg QHS PO Last administered on 04/08/18at 19: 21; Start 03/29/18 at 21:00 Vitamin D (Vitamin D3) 50,000 unit WEEKLY PO Last administered on 04/03/18at 08: 37; Start 04/03/18 at 09:00 Cyanocobalamin (Vitamin B-12) 1,000 mcg DAILY PO Last administered on at 09:03; Start 03/30/18 at 09:00 Diclofenac Sodium (Voltaren) 1 evan PRN Q12HR PRN TP PAIN; Start 03/29/18 at 17: 00 Al Hydroxide/Mg Hydroxide (Mylanta Plus Xs) 15 ml PRN Q6HRS PRN PO DYSPEPSIA; Start 03/29/18 at 17:00; Status Cancel Multivitamins/ Calcium (Thera-M Plus) 1 tab DAILY PO Last administered on 09:03; Start 03/30/18 at 09:00 Lactobacillus Rhamnosus (Culturelle) 1 cap BID PO Last administered on 19:21; Start 03/29/18 at 21:00 Senna/Docusate Sodium (Senna Plus) 1 tab BID PO Last administered on 04/08/18 19:21; Start 03/29/18 at 21:00 Acetaminophen (Tylenol) 500 mg PRN Q4HRS PRN PO PAIN / TEMP; Start 03/29/18 at 17:45 Amlodipine Besylate (Norvasc) 5 mg DAILY PO Last administered on 04/08/18at 09: 05; Start 03/30/18 at 09:00 Aspirin (Aspirin Enteric Coated) 81 mg DAILY PO Last administered on 04/08/18 09:05; Start 03/30/18 at 09:00 Bisacodyl (Dulcolax Supp) 10 mg PRN DAILY PRN [place] CONSTIPATION; Start 03/29/18 at 17:45 Carvedilol (Coreg) 12.5 mg BIDWMEALS PO Last administered on 03/30/18at 16:44; Start 03/30/18 at 08:00; Stop 03/30/18 at 17:57; Status DC Multivit/Ca Carb/ B Cmplx/FA/Prenat (Nephro-Vikram) 1 tab PRN DAILY PRN PO SUPPLEMENT; Start 03/30/18 at 09:00 Loperamide HCl (Imodium) 2 mg PRN Q2HR PRN PO DIARRHEA; Start 03/29/18 at 17:45 Non-Formulary Medication (Magnesium Hydroxide (Milk Of Magnesia)) 30 ml PRN QHS PRN PO CONSTIPATION; Start 03/29/18 at 17:00; Status UNV Memantine (Namenda) 10 mg BID PO Last administered on 04/08/18at 19:21; Start at 21:00 Potassium Chloride (Klor-Con) 20 meq 3X/WEEK PO Last administered on 04/07/18at 08:23; Start 03/31/18 at 09:00 Artificial Tears (Artificial Tears) 2 drop PRN QID PRN OU DRY EYE; Start at 18:00 Rivastigmine (Exelon) 1 patch DAILY TD Last administered on 04/08/18at 09:06; Start 03/30/18 at 09:00 Sodium Chloride (Saline Mist Nasal) 1 evan PRN TID PRN NS NASAL CONGESTION; Start 03/29/18 at 18:00 Warfarin Sodium (Coumadin) 3 mg DAILY16 PO Last administered on 04/05/18at 17:28 ; Start 03/29/18 at 18:00; Stop 04/05/18 at 17:37; Status DC Ondansetron HCl (Zofran Odt) 4 mg PRN Q4HRS PRN PO NAUSEA/VOMITING; Start at 17:30 Albuterol Sulfate (Ventolin) 2.5 mg PRN Q6HRS PRN NEB SHORTNESS OF BREATH; Start 03/29/18 at 18:00 Warfarin Sodium (Coumadin Per Physician) 1 each PRN DAILY PRN MC SEE COMMENTS; Start 03/29/18 at 18:00 Olanzapine (ZyPREXA ZYDIS) 2.5 mg PRN Q2HR PRN PO PSYCHOSIS Last administered on 04/08/18at 18:40; Start 03/29/18 at 19:15 Cefpodoxime Proxetil (Vantin) 100 mg BID PO Last administered on 04/05/18at 19: 24; Start 03/29/18 at 21:00; Stop 04/05/18 at 23:00; Status DC Amlodipine Besylate (Norvasc) 5 mg BID PRN PO ELEVATED BP, SEE COMMENTS Last administered on 03/30/18at 15:29; Start 03/30/18 at 15:30; Stop 04/06/18 at 19:36; Status DC Carvedilol (Coreg) 12.5 mg 1X ONCE PO Last administered on 03/30/18at 18:05; Start 03/30/18 at 18:00; Stop 03/30/18 at 18:01; Status DC Carvedilol (Coreg) 25 mg BIDWMEALS PO Last administered on 04/08/18at 18:41; Start 03/31/18 at 08:00 Quetiapine Fumarate (SEROquel) 12.5 mg 1X ONCE PO Last administered on at 18:21; Start 03/31/18 at 18:15; Stop 03/31/18 at 18:18; Status DC Quetiapine Fumarate (SEROquel) 12.5 mg BID@0900,1700 PO Last administered on at 18:41; Start 04/01/18 at 09:00 Hydroxyzine HCl (Atarax) 25 mg PRN Q2HR PRN PO PSYCHOSIS Last administered on at 21:24; Start 04/03/18 at 23:15 Warfarin Sodium (Coumadin) 4 mg DAILY PO Last administered on 04/08/18at 09:03; Start 04/06/18 at 16:00 Warfarin Sodium (Coumadin) 1 mg 1X ONCE PO Last administered on 04/05/18at 17: 45; Start 04/05/18 at 17:45; Stop 04/05/18 at 17:46; Status DC Prazosin HCl (Minipress) 1 mg HS PO Last administered on 04/05/18at 19:34; Start 04/05/18 at 21:00; Stop 04/06/18 at 18:03; Status DC Prazosin HCl (Minipress) 2 mg HS PO Last administered on 04/08/18at 19:21; Start 04/06/18 at 21:00 Active Scripts Active Coumadin (Warfarin Sodium) 3 Mg Tablet 1 Tab PO DAILY Coreg (Carvedilol) 12.5 Mg Tablet 1 Tab PO BID Reported Vitamin D3 (Cholecalciferol (Vitamin D3)) 50,000 Unit Capsule 50,000 Unit PO WEEKLY Vitamin B-12 (Cyanocobalamin (Vitamin B-12)) 1,000 Mcg Tablet 1,000 Mcg PO DAILY Probiotic (Saccharomyces Boulardii) 250 Mg Capsule 250 Mg PO DAILY Norvasc (Amlodipine Besylate) 5 Mg Tablet 5 Mg PO DAILY Nephro-Vikram Tablet (Folic Acid/Vitamin B Comp W-C) 0.8 Mg Tablet 1 Tab PO DAILY PRN EXELON 9.5mg/24hr (Rivastigmine) 1 Each Patch.td24 1 Patch TD DAILY Saline Nasal [place] (Sodium Chloride) 30 Ml [place] 30 Ml NS TID Mag-Al Plus Xs Suspension (Mag Hydrox/Al Hydrox/Simeth) 30 Ml Oral.susp 15 Ml PO PRN Q6HRS PRN Potassium Chloride Oral Liquid (Potassium Chloride) 20 Meq/15 Ml Liquid 20 Meq PO 3X/WEEK Administer on Thursday, Thursday and Thursday Thera-M Tablet (Multivits,Ca,Minerals/Iron/Fa) 1 Each Tablet 1 Tab PO DAILY Namenda (Memantine Hcl) 5 Mg Tablet 10 Mg PO BID Voltaren (Diclofenac Sodium) 100 Gm Gel..gram. 1 Evan TP PRN Q12HR PRN Systane 0.3-0.4% Eye Drops (Propylene Glycol/Peg 400) 15 Ml Drops 2 Drop OU PRN QID PRN Senokot-S Tablet (Sennosides/Docusate Sodium) 1 Each Tablet 1 Tab PO BID Milk Of Magnesia (Magnesium Hydroxide) 2,400 Mg/10 Ml Oral.susp 30 Ml PO PRN QHS PRN Imodium A-D (Loperamide Hcl) 1 Mg/7.5 Ml Liquid 2 Mg PO PRN Q2HR PRN Max dose of 16mg in 24 hours Dulcolax (Bisacodyl) 10 Mg Supp.rect 10 Mg RC PRN DAILY PRN Atorvastatin Calcium 20 Mg Tablet 20 Mg PO QHS Aspir-Low (Aspirin) 81 Mg Tablet.dr 81 Mg PO DAILY Proair Hfa Inhaler (Albuterol Sulfate) 8.5 Gm Hfa.aer.ad 1 Puff INH PRN Q6HRS PRN Acetaminophen 500 Mg Tablet 500 Mg PO PRN Q4HRS PRN NTE 3000mg APAP in 24 hours from all sources I have reviewed the current psychotropics carefully including drug interactions. Risk benefit ratio favors no change other than as noted in my dictated progress note. Diagnosis: Problems: (1) Agitation (2) Acute ischemic stroke (3) Syncope (4) Hemiplegia affecting left nondominant side (5) TIA (transient ischemic attack) (6) Hypertension (7) Anxiety disorder (8) Dementia, vascular, with delusions (9) Dementia, vascular, with depression (10) Impulse control disorder (11) Acute kidney injury DEAN GARDNER MD Apr 08, 2018 22:29
[2018-04-09 06:49] VITALS: BP 142/94
[2018-04-09] MEDS: amLODIPine BESYLATE 5 MG TABLET PO SCH (08:13)
[2018-04-09] MEDS: CARVEDILOL 12.5 MG TABLET PO SCH ×2 (08:13→16:34)
[2018-04-09] MEDS: ASPIRIN ENTERIC COATED 81 MG TABLET.DR. PO SCH (08:14)
[2018-04-09] MEDS: SENNOSIDES/DOCUSATE 8.6/50MG TABLET. PO SCH ×2 (08:14→20:01)
[2018-04-09] MEDS: MULTIVITAMIN with MINERAL TABLET. PO SCH (08:14)
[2018-04-09] MEDS: MEMANTINE 10 MG TABLET. PO SCH ×2 (08:14→20:01)
[2018-04-09] MEDS: CYANOCOBALAMIN (VITAMIN B-12) 1,000 MCG TABLET. PO SCH (08:14)
[2018-04-09] MEDS: QUEtiapine 25 MG TABLET. PO SCH ×2 (08:14→16:33)
[2018-04-09] MEDS: LACTOBACILLUS RHAMNOSUS GG 1 CAPSULE. PO SCH ×2 (08:14→20:01)
[2018-04-09] MEDS: POTASSIUM CHLORIDE 20 MEQ TABLET.ER. PO SCH (08:14)
[2018-04-09] MEDS: WARFARIN 4 MG TABLET. PO SCH (08:14)
[2018-04-09] MEDS: RIVASTIGMINE 9.5MG PATCH. TD SCH (08:15)
--- NOTE | 2018-04-09 09:28 | NUR ---
Behavior Intervention Response and Plan: BIRP Note: Behavior: Assumed Care of patient, patient located in Dining Room at shift change. Patient exhibited the following behavior Calm, interactive, Cooperative. Brief assessment on rounds of vital signs, medication needs, lab studies, and pain. Treatment plan problems Ateration in Mood and fall risk. Intervention: Patient assessed and the following interventions initiated safety checks 15 Minute Checks Head to toe Assessment , Cognitive Assessment , Medications. Response: After interactions and interventions patient responded in the following manner, Calm , Interactive ,Compliant. Continue to assess behaviors and condition will continue to monitor throughout the shift as needed. Patient educated on ADL's, and hand hygiene. Plan: Continue to monitor Master Treatment Plan for patient's progress toward short term goals of Decreased Agitation, Decreased Anxiety, fdc goals to return to previous living setting vs placement. Continue to assess patient for changes in above assessment. Monitor for medication needs, pain, and safety concerns. Hourly rounding performed to ensure safe environment.
[2018-04-09 16:39] VITALS: BP 132/75
[2018-04-09] MEDS: ATORVASTATIN CALCIUM 20 MG TABLET PO SCH (20:01)
[2018-04-09] MEDS: PRAZOSIN 1 MG CAPSULE. PO SCH (20:01)
--- NOTE | 2018-04-09 22:31 | PDOC ---
Exam Note: [place] Note: Please also refer to the separate dictated note~for this date of service dictated separately.~Patient seen individually. Discussed the patient with Nursing staff reviewed the chart.~Reviewed interim history and current functioning. Reviewed vital signs,~Labs/ Radiology~and current medications noted below. Continue current treatment with the changes noted in the dictated addendum note Assessment: Vital Signs: Vital Signs Date Time Temp Pulse Resp B/P (MAP) Pulse Ox O2 Delivery O2 Flow Rate FiO2 04/09/18 20:01 66 132/75 04/09/18 16:39 97.4 17 98 Room Air I&O Intake and Output 04/09/18 07:00 Intake Total 1200 ml Balance 1200 ml Intake Oral 1200 ml # Bowel Movements 3 Current Medications: Meds: Current Medications Acetaminophen (Tylenol) 650 mg PRN Q6HRS PRN PO PAIN / TEMP; Start 03/29/18 at 16:30; Status Cancel Multi-Ingredient Ointment (Analgesic [place]) 1 evan PRN QID PRN TP MUSCLE PAIN; Start 03/29/18 at 16:30 Al Hydroxide/Mg Hydroxide (Mylanta Plus Xs) 15 ml PRN AFTMEALHC PRN PO DYSPEPSIA; Start 03/29/18 at 16:30 Magnesium Hydroxide (Milk Of Magnesia) 2,400 mg PRN QHS PRN PO CONSTIPATION; Start 03/29/18 at 16:30 Albuterol Sulfate (Ventolin Hfa) 1 puff PRN Q6HRS PRN INH SHORTNESS OF BREATH; Start 03/29/18 at 17:00; Status UNV Atorvastatin Calcium (Lipitor) 20 mg QHS PO Last administered on 04/09/18at 20: 01; Start 03/29/18 at 21:00 Vitamin D (Vitamin D3) 50,000 unit WEEKLY PO Last administered on 04/03/18at 08: 37; Start 04/03/18 at 09:00 Cyanocobalamin (Vitamin B-12) 1,000 mcg DAILY PO Last administered on at 08:14; Start 03/30/18 at 09:00 Diclofenac Sodium (Voltaren) 1 evan PRN Q12HR PRN TP PAIN; Start 03/29/18 at 17: 00 Al Hydroxide/Mg Hydroxide (Mylanta Plus Xs) 15 ml PRN Q6HRS PRN PO DYSPEPSIA; Start 03/29/18 at 17:00; Status Cancel Multivitamins/ Calcium (Thera-M Plus) 1 tab DAILY PO Last administered on 08:14; Start 03/30/18 at 09:00 Lactobacillus Rhamnosus (Culturelle) 1 cap BID PO Last administered on at 20:01; Start 03/29/18 at 21:00 Senna/Docusate Sodium (Senna Plus) 1 tab BID PO Last administered on 04/09/18at 20:01; Start 03/29/18 at 21:00 Acetaminophen (Tylenol) 500 mg PRN Q4HRS PRN PO PAIN / TEMP; Start 03/29/18 at 17:45 Amlodipine Besylate (Norvasc) 5 mg DAILY PO Last administered on 04/09/18at 08: 13; Start 03/30/18 at 09:00 Aspirin (Aspirin Enteric Coated) 81 mg DAILY PO Last administered on 04/09/18at 08:14; Start 03/30/18 at 09:00 Bisacodyl (Dulcolax Supp) 10 mg PRN DAILY PRN [place] CONSTIPATION; Start 03/29/18 at 17:45 Carvedilol (Coreg) 12.5 mg BIDWMEALS PO Last administered on 03/30/18at 16:44; Start 03/30/18 at 08:00; Stop 03/30/18 at 17:57; Status DC Multivit/Ca Carb/ B Cmplx/FA/Prenat (Nephro-Vikram) 1 tab PRN DAILY PRN PO SUPPLEMENT; Start 03/30/18 at 09:00 Loperamide HCl (Imodium) 2 mg PRN Q2HR PRN PO DIARRHEA; Start 03/29/18 at 17:45 Non-Formulary Medication (Magnesium Hydroxide (Milk Of Magnesia)) 30 ml PRN QHS PRN PO CONSTIPATION; Start 03/29/18 at 17:00; Status UNV Memantine (Namenda) 10 mg BID PO Last administered on 04/09/18at 20:01; Start at 21:00 Potassium Chloride (Klor-Con) 20 meq 3X/WEEK PO Last administered on 04/09/18at 08:14; Start 03/31/18 at 09:00 Artificial Tears (Artificial Tears) 2 drop PRN QID PRN OU DRY EYE; Start at 18:00 Rivastigmine (Exelon) 1 patch DAILY TD Last administered on 04/09/18at 08:15; Start 03/30/18 at 09:00 Sodium Chloride (Saline Mist Nasal) 1 evan PRN TID PRN NS NASAL CONGESTION; Start 03/29/18 at 18:00 Warfarin Sodium (Coumadin) 3 mg DAILY16 PO Last administered on 04/05/18at 17:28 ; Start 03/29/18 at 18:00; Stop 04/05/18 at 17:37; Status DC Ondansetron HCl (Zofran Odt) 4 mg PRN Q4HRS PRN PO NAUSEA/VOMITING; Start at 17:30 Albuterol Sulfate (Ventolin) 2.5 mg PRN Q6HRS PRN NEB SHORTNESS OF BREATH; Start 03/29/18 at 18:00 Warfarin Sodium (Coumadin Per Physician) 1 each PRN DAILY PRN MC SEE COMMENTS; Start 03/29/18 at 18:00 Olanzapine (ZyPREXA ZYDIS) 2.5 mg PRN Q2HR PRN PO PSYCHOSIS Last administered on 04/08/18at 18:40; Start 03/29/18 at 19:15 Cefpodoxime Proxetil (Vantin) 100 mg BID PO Last administered on 04/05/18at 19: 24; Start 03/29/18 at 21:00; Stop 04/05/18 at 23:00; Status DC Amlodipine Besylate (Norvasc) 5 mg BID PRN PO ELEVATED BP, SEE COMMENTS Last administered on 03/30/18at 15:29; Start 03/30/18 at 15:30; Stop 04/06/18 at 19:36; Status DC Carvedilol (Coreg) 12.5 mg 1X ONCE PO Last administered on 03/30/18at 18:05; Start 03/30/18 at 18:00; Stop 03/30/18 at 18:01; Status DC Carvedilol (Coreg) 25 mg BIDWMEALS PO Last administered on 04/09/18at 16:34; Start 03/31/18 at 08:00 Quetiapine Fumarate (SEROquel) 12.5 mg 1X ONCE PO Last administered on at 18:21; Start 03/31/18 at 18:15; Stop 03/31/18 at 18:18; Status DC Quetiapine Fumarate (SEROquel) 12.5 mg BID@0900,1700 PO Last administered on at 16:33; Start 04/01/18 at 09:00 Hydroxyzine HCl (Atarax) 25 mg PRN Q2HR PRN PO PSYCHOSIS Last administered on at 21:24; Start 04/03/18 at 23:15 Warfarin Sodium (Coumadin) 4 mg DAILY PO Last administered on 04/09/18at 08:14; Start 04/06/18 at 16:00 Warfarin Sodium (Coumadin) 1 mg 1X ONCE PO Last administered on 04/05/18at 17: 45; Start 04/05/18 at 17:45; Stop 04/05/18 at 17:46; Status DC Prazosin HCl (Minipress) 1 mg HS PO Last administered on 04/05/18at 19:34; Start 04/05/18 at 21:00; Stop 04/06/18 at 18:03; Status DC Prazosin HCl (Minipress) 2 mg HS PO Last administered on 04/09/18at 20:01; Start 04/06/18 at 21:00 Active Scripts Active Coumadin (Warfarin Sodium) 3 Mg Tablet 1 Tab PO DAILY Coreg (Carvedilol) 12.5 Mg Tablet 1 Tab PO BID Reported Vitamin D3 (Cholecalciferol (Vitamin D3)) 50,000 Unit Capsule 50,000 Unit PO WEEKLY Vitamin B-12 (Cyanocobalamin (Vitamin B-12)) 1,000 Mcg Tablet 1,000 Mcg PO DAILY Probiotic (Saccharomyces Boulardii) 250 Mg Capsule 250 Mg PO DAILY Norvasc (Amlodipine Besylate) 5 Mg Tablet 5 Mg PO DAILY Nephro-Vikram Tablet (Folic Acid/Vitamin B Comp W-C) 0.8 Mg Tablet 1 Tab PO DAILY PRN EXELON 9.5mg/24hr (Rivastigmine) 1 Each Patch.td24 1 Patch TD DAILY Saline Nasal Crum (Sodium Chloride) 30 Ml Crum 30 Ml NS TID Mag-Al Plus Xs Suspension (Mag Hydrox/Al Hydrox/Simeth) 30 Ml Oral.susp 15 Ml PO PRN Q6HRS PRN Potassium Chloride Oral Liquid (Potassium Chloride) 20 Meq/15 Ml Liquid 20 Meq PO 3X/WEEK Administer on Thursday, Thursday and Thursday Thera-M Tablet (Multivits,Ca,Minerals/Iron/Fa) 1 Each Tablet 1 Tab PO DAILY Namenda (Memantine Hcl) 5 Mg Tablet 10 Mg PO BID Voltaren (Diclofenac Sodium) 100 Gm Gel..gram. 1 Evan TP PRN Q12HR PRN Systane 0.3-0.4% Eye Drops (Propylene Glycol/Peg 400) 15 Ml Drops 2 Drop OU PRN QID PRN Senokot-S Tablet (Sennosides/Docusate Sodium) 1 Each Tablet 1 Tab PO BID Milk Of Magnesia (Magnesium Hydroxide) 2,400 Mg/10 Ml Oral.susp 30 Ml PO PRN QHS PRN Imodium A-D (Loperamide Hcl) 1 Mg/7.5 Ml Liquid 2 Mg PO PRN Q2HR PRN Max dose of 16mg in 24 hours Dulcolax (Bisacodyl) 10 Mg Supp.rect 10 Mg RC PRN DAILY PRN Atorvastatin Calcium 20 Mg Tablet 20 Mg PO QHS Aspir-Low (Aspirin) 81 Mg Tablet.dr 81 Mg PO DAILY Proair Hfa Inhaler (Albuterol Sulfate) 8.5 Gm Hfa.aer.ad 1 Puff INH PRN Q6HRS PRN Acetaminophen 500 Mg Tablet 500 Mg PO PRN Q4HRS PRN NTE 3000mg APAP in 24 hours from all sources I have reviewed the current psychotropics carefully including drug interactions. Risk benefit ratio favors no change other than as noted in my dictated progress note. Diagnosis: Problems: (1) Agitation (2) Acute ischemic stroke (3) Syncope (4) Hemiplegia affecting left nondominant side (5) TIA (transient ischemic attack) (6) Hypertension (7) Anxiety disorder (8) Dementia, vascular, with delusions (9) Dementia, vascular, with depression (10) Impulse control disorder (11) Acute kidney injury DEAN GARDNER MD Apr 09, 2018 22:31
--- NOTE | 2018-04-10 00:08 | NUR ---
Behavior Intervention Response and Plan: BIRP Note: Behavior: Assumed Care of patient, patient located in Day Room at shift change. Patient exhibited the following behavior Calm, Interactive, Cooperative. Brief assessment on rounds of vital signs, medication needs, lab studies, and pain. Treatment plan problems 1 and 2. Intervention: Patient assessed and the following interventions initiated safety checks 15 Minute Checks Cognitive Assessment , Head to toe Assessment , Medications. Response: After interactions and interventions patient responded in the following manner, Calm , Compliant ,Cooperative. Continue to assess behaviors and condition will continue to monitor throughout the shift as needed. Patient educated on ADL's, and hand hygiene. Plan: Continue to monitor Master Treatment Plan for patient's progress toward short term goals of Decreased Agitation, Improved Mood, care home goals to return to previous living setting vs placement. Continue to assess patient for changes in above assessment. Monitor for medication needs, pain, and safety concerns. Hourly rounding performed to ensure safe environment.
[2018-04-10 06:36] VITALS: BP 152/86
--- NOTE | 2018-04-10 07:27 | PN ---
DATE: 04/07/2018 PSYCHIATRIC PROGRESS NOTE This is a late entry for 04/07/2018, covers elements not covered in my initial note. SUBJECTIVE: I met with the patient in the evening. The patient remains confused, but otherwise pleasant and compliant, going to groups, went out to the patio, looking for his truck. REVIEW OF SYSTEMS: Ambulation impaired, in wheelchair. No CV, , pulmonary, eye, ENT system symptoms on review. MENTAL STATUS EXAM: Oriented to himself. Insight, judgment, recent and remote memory, attention, concentration, fund of knowledge poor, consistent with his diagnosis mentioned in my initial note. PLAN: Continue psychotropics from initial note. MAN Beny GARDNER MD DR: DAMIEN/rose JOB#: [id number] / [id number]
[2018-04-10 07:32] LABS: BASO % 1 % (0-3); EOS # 0.4 x10^3/uL (0.0-0.7); EOS % 7 % (0-3); HEMATOCRIT 33.7 % (39.0-53.0); HEMOGLOBIN 11.2 g/dL (13.0-17.5); LYMPH # 1.7 x10^3/uL (1.0-4.8); LYMPH % 31 % (24-48); MEAN CORPUSCULAR HEMOGLOBIN 31 pg (25-35); MEAN CORPUSCULAR HGB CONC 33 g/dL (31-37); MEAN CORPUSCULAR VOLUME 92 fL (79-100); MONO # 0.4 x10^3/uL (0.0-1.1); MONO % 8 % (0-9); NEUT % 54 % (31-73); PLATELET COUNT 165 x10^3/uL (140-400); RED BLOOD COUNT 3.66 x10^6/uL (4.30-5.70); RED CELL DISTRIBUTION WIDTH 14.2 % (11.5-14.5); WHITE BLOOD COUNT 5.6 x10^3/uL (4.0-11.0)
--- NOTE | 2018-04-10 07:35 | PN ---
DATE: 04/08/2018 PSYCHIATRIC PROGRESS NOTE This is a late entry for 04/08/2018, covers elements not covered in my initial note. SUBJECTIVE: I met with the patient individually and staffed at treatment team meeting. The patient has been somewhat delusional, believes he is on a ship and is in the [place]. Compliant with his medications. REVIEW OF SYSTEMS: Ambulation impaired in wheelchair. No CV, , pulmonary, eye system symptoms on review. Pleasant, verbal, smiling as I met with him. MENTAL STATUS EXAM: Insight, judgment, recent and remote memory, attention, concentration, fund of knowledge poor, consistent with his diagnosis mentioned in my initial note. PLAN: Continue current psychotropics. Adjust further as clinically indicated. MAN Beny GARDNER MD DR: DAMIEN/rose JOB#: [id number] / [id number]
[2018-04-10 07:40] LABS: ALBUMIN/GLOBULIN RATIO 0.9 (1.0-1.7); CALCIUM 8.4 mg/dL (8.5-10.1); CREATININE 1.2 mg/dL (0.7-1.3); GFR 72.9; MAGNESIUM 1.9 mg/dL (1.8-2.4); POTASSIUM 4.1 mmol/L (3.5-5.1); TOTAL BILIRUBIN 0.4 mg/dL (0.2-1.0); TOTAL PROTEIN 6.5 g/dL (6.4-8.2)
[2018-04-10] MEDS: MULTIVITAMIN with MINERAL TABLET. PO SCH (08:09)
[2018-04-10] MEDS: CYANOCOBALAMIN (VITAMIN B-12) 1,000 MCG TABLET. PO SCH (08:09)
[2018-04-10] MEDS: SENNOSIDES/DOCUSATE 8.6/50MG TABLET. PO SCH ×2 (08:09→20:01)
[2018-04-10] MEDS: ASPIRIN ENTERIC COATED 81 MG TABLET.DR. PO SCH (08:09)
[2018-04-10] MEDS: LACTOBACILLUS RHAMNOSUS GG 1 CAPSULE. PO SCH ×2 (08:09→20:00)
[2018-04-10] MEDS: RIVASTIGMINE 9.5MG PATCH. TD SCH (08:09)
[2018-04-10] MEDS: WARFARIN 4 MG TABLET. PO SCH (08:10)
[2018-04-10] MEDS: MEMANTINE 10 MG TABLET. PO SCH ×2 (08:11→20:01)
[2018-04-10] MEDS: amLODIPine BESYLATE 5 MG TABLET PO SCH (08:11)
[2018-04-10] MEDS: CARVEDILOL 12.5 MG TABLET PO SCH ×2 (08:11→16:50)
[2018-04-10] MEDS: QUEtiapine 25 MG TABLET. PO SCH ×2 (08:11→16:49)
[2018-04-10] MEDS: CHOLECALCIFEROL (VITAMIN D3) 50,000 UNIT CAPSULE PO SCH (08:13)
--- NOTE | 2018-04-10 12:37 | NUR ---
Behavior Intervention Response and Plan: BIRP Note: Behavior: Assumed Care of patient, patient located in Dining Room at shift change. Patient exhibited the following behavior Calm, interactive, Cooperative. Brief assessment on rounds of vital signs, medication needs, lab studies, and pain. Treatment plan problems Ateration in Mood and fall risk. Intervention: Patient assessed and the following interventions initiated safety checks 15 Minute Checks Head to toe Assessment , Cognitive Assessment , Medications. Response: After interactions and interventions patient responded in the following manner, Calm , Interactive ,Compliant. Continue to assess behaviors and condition will continue to monitor throughout the shift as needed. Patient educated on ADL's, and hand hygiene. Plan: Continue to monitor Master Treatment Plan for patient's progress toward short term goals of Decreased Agitation, Decreased Anxiety, mcfp goals to return to previous living setting vs placement. Continue to assess patient for changes in above assessment. Monitor for medication needs, pain, and safety concerns. Hourly rounding performed to ensure safe environment.
[2018-04-10 16:50] VITALS: BP 185/81
[2018-04-10] MEDS: PRAZOSIN 1 MG CAPSULE. PO SCH (20:01)
[2018-04-10] MEDS: ATORVASTATIN CALCIUM 20 MG TABLET PO SCH (20:01)
[2018-04-10] MEDS: hydrOXYzine HCL 25 MG TABLET PO PRN (20:04)
--- NOTE | 2018-04-10 22:34 | PDOC ---
Exam Note: [place] Note: Please also refer to the separate dictated note~for this date of service dictated separately.~Patient seen individually. Discussed the patient with Nursing staff reviewed the chart.~Reviewed interim history and current functioning. Reviewed vital signs,~Labs/ Radiology~and current medications noted below. Continue current treatment with the changes noted in the dictated addendum note Assessment: Vital Signs: Vital Signs Date Time Temp Pulse Resp B/P (MAP) Pulse Ox O2 Delivery O2 Flow Rate FiO2 04/10/18 20:01 60 185/81 04/10/18 16:50 97.4 20 04/10/18 06:36 99 Room Air I&O Intake and Output 04/10/18 07:01 Intake Total 840 ml Balance 840 ml Intake Oral 840 ml Labs: Laboratory Tests Test 04/10/18 07:16 White Blood Count 5.6 x10^3/uL (4.0-11.0) Red Blood Count 3.66 x10^6/uL (4.30-5.70) L Hemoglobin 11.2 g/dL (13.0-17.5) L Hematocrit 33.7 % (39.0-53.0) L Mean Corpuscular Volume 92 fL (79-100) Mean Corpuscular Hemoglobin 31 pg (25-35) Mean Corpuscular Hemoglobin Concent 33 g/dL (31-37) Red Cell Distribution Width 14.2 % (11.5-14.5) Platelet Count 165 x10^3/uL (140-400) Neutrophils (%) (Auto) 54 % (31-73) Lymphocytes (%) (Auto) 31 % (24-48) Monocytes (%) (Auto) 8 % (0-9) Eosinophils (%) (Auto) 7 % (0-3) H Basophils (%) (Auto) 1 % (0-3) Neutrophils # (Auto) 3.0 x10^3uL (1.8-7.7) Lymphocytes # (Auto) 1.7 x10^3/uL (1.0-4.8) Monocytes # (Auto) 0.4 x10^3/uL (0.0-1.1) Eosinophils # (Auto) 0.4 x10^3/uL (0.0-0.7) Basophils # (Auto) 0.0 x10^3/uL (0.0-0.2) Prothrombin Time 17.5 SEC (9.4-11.4) H Prothrombin Time INR 1.7 (0.9-1.1) H Sodium Level 141 mmol/L (136-145) Potassium Level 4.1 mmol/L (3.5-5.1) Chloride Level 107 mmol/L (98-107) Carbon Dioxide Level 24 mmol/L (21-32) Anion Gap 10 (6-14) Blood Urea Nitrogen 15 mg/dL (8-26) Creatinine 1.2 mg/dL (0.7-1.3) Estimated GFR (Cockcroft-Gault) 72.9 BUN/Creatinine Ratio 13 (6-20) Glucose Level 110 mg/dL (70-99) H Calcium Level 8.4 mg/dL (8.5-10.1) L Magnesium Level 1.9 mg/dL (1.8-2.4) Total Bilirubin 0.4 mg/dL (0.2-1.0) Aspartate Amino Transferase (AST) 24 U/L (15-37) Alanine Aminotransferase (ALT) 31 U/L (16-63) Alkaline Phosphatase 74 U/L (46-116) Total Protein 6.5 g/dL (6.4-8.2) Albumin 3.0 g/dL (3.4-5.0) L Albumin/Globulin Ratio 0.9 (1.0-1.7) L Current Medications: Meds: Current Medications Acetaminophen (Tylenol) 650 mg PRN Q6HRS PRN PO PAIN / TEMP; Start 03/29/18 at 16:30; Status Cancel Multi-Ingredient Ointment (Analgesic [place]) 1 evan PRN QID PRN TP MUSCLE PAIN; Start 03/29/18 at 16:30 Al Hydroxide/Mg Hydroxide (Mylanta Plus Xs) 15 ml PRN AFTMEALHC PRN PO DYSPEPSIA; Start 03/29/18 at 16:30 Magnesium Hydroxide (Milk Of Magnesia) 2,400 mg PRN QHS PRN PO CONSTIPATION; Start 03/29/18 at 16:30 Albuterol Sulfate (Ventolin Hfa) 1 puff PRN Q6HRS PRN INH SHORTNESS OF BREATH; Start 03/29/18 at 17:00; Status UNV Atorvastatin Calcium (Lipitor) 20 mg QHS PO Last administered on 04/10/18 20: 01; Start 03/29/18 at 21:00 Vitamin D (Vitamin D3) 50,000 unit WEEKLY PO Last administered on 04/10/18at 08: 13; Start 04/03/18 at 09:00 Cyanocobalamin (Vitamin B-12) 1,000 mcg DAILY PO Last administered on at 08:09; Start 03/30/18 at 09:00 Diclofenac Sodium (Voltaren) 1 evan PRN Q12HR PRN TP PAIN; Start 03/29/18 at 17: 00 Al Hydroxide/Mg Hydroxide (Mylanta Plus Xs) 15 ml PRN Q6HRS PRN PO DYSPEPSIA; Start 03/29/18 at 17:00; Status Cancel Multivitamins/ Calcium (Thera-M Plus) 1 tab DAILY PO Last administered on at 08:09; Start 03/30/18 at 09:00 Lactobacillus Rhamnosus (Culturelle) 1 cap BID PO Last administered on at 20:00; Start 03/29/18 at 21:00 Senna/Docusate Sodium (Senna Plus) 1 tab BID PO Last administered on 04/10/18at 20:01; Start 03/29/18 at 21:00 Acetaminophen (Tylenol) 500 mg PRN Q4HRS PRN PO PAIN / TEMP; Start 03/29/18 at 17:45 Amlodipine Besylate (Norvasc) 5 mg DAILY PO Last administered on 04/10/18at 08: 11; Start 03/30/18 at 09:00 Aspirin (Aspirin Enteric Coated) 81 mg DAILY PO Last administered on 04/10/18at 08:09; Start 03/30/18 at 09:00 Bisacodyl (Dulcolax Supp) 10 mg PRN DAILY PRN [place] CONSTIPATION; Start 03/29/18 at 17:45 Carvedilol (Coreg) 12.5 mg BIDWMEALS PO Last administered on 03/30/18at 16:44; Start 03/30/18 at 08:00; Stop 03/30/18 at 17:57; Status DC Multivit/Ca Carb/ B Cmplx/FA/Prenat (Nephro-Vikram) 1 tab PRN DAILY PRN PO SUPPLEMENT; Start 03/30/18 at 09:00 Loperamide HCl (Imodium) 2 mg PRN Q2HR PRN PO DIARRHEA; Start 03/29/18 at 17:45 Non-Formulary Medication (Magnesium Hydroxide (Milk Of Magnesia)) 30 ml PRN QHS PRN PO CONSTIPATION; Start 03/29/18 at 17:00; Status UNV Memantine (Namenda) 10 mg BID PO Last administered on 04/10/18at 20:01; Start at 21:00 Potassium Chloride (Klor-Con) 20 meq 3X/WEEK PO Last administered on 04/09/18at 08:14; Start 03/31/18 at 09:00 Artificial Tears (Artificial Tears) 2 drop PRN QID PRN OU DRY EYE; Start at 18:00 Rivastigmine (Exelon) 1 patch DAILY TD Last administered on 04/10/18at 08:09; Start 03/30/18 at 09:00 Sodium Chloride (Saline Mist Nasal) 1 evan PRN TID PRN NS NASAL CONGESTION; Start 03/29/18 at 18:00 Warfarin Sodium (Coumadin) 3 mg DAILY16 PO Last administered on 04/05/18at 17:28 ; Start 03/29/18 at 18:00; Stop 04/05/18 at 17:37; Status DC Ondansetron HCl (Zofran Odt) 4 mg PRN Q4HRS PRN PO NAUSEA/VOMITING; Start at 17:30 Albuterol Sulfate (Ventolin) 2.5 mg PRN Q6HRS PRN NEB SHORTNESS OF BREATH; Start 03/29/18 at 18:00 Warfarin Sodium (Coumadin Per Physician) 1 each PRN DAILY PRN MC SEE COMMENTS; Start 03/29/18 at 18:00 Olanzapine (ZyPREXA ZYDIS) 2.5 mg PRN Q2HR PRN PO PSYCHOSIS Last administered on 04/08/18at 18:40; Start 03/29/18 at 19:15 Cefpodoxime Proxetil (Vantin) 100 mg BID PO Last administered on 04/05/18at 19: 24; Start 03/29/18 at 21:00; Stop 04/05/18 at 23:00; Status DC Amlodipine Besylate (Norvasc) 5 mg BID PRN PO ELEVATED BP, SEE COMMENTS Last administered on 03/30/18at 15:29; Start 03/30/18 at 15:30; Stop 04/06/18 at 19:36; Status DC Carvedilol (Coreg) 12.5 mg 1X ONCE PO Last administered on 03/30/18at 18:05; Start 03/30/18 at 18:00; Stop 03/30/18 at 18:01; Status DC Carvedilol (Coreg) 25 mg BIDWMEALS PO Last administered on 04/10/18at 16:50; Start 03/31/18 at 08:00 Quetiapine Fumarate (SEROquel) 12.5 mg 1X ONCE PO Last administered on at 18:21; Start 03/31/18 at 18:15; Stop 03/31/18 at 18:18; Status DC Quetiapine Fumarate (SEROquel) 12.5 mg BID@0900,1700 PO Last administered on at 16:49; Start 04/01/18 at 09:00 Hydroxyzine HCl (Atarax) 25 mg PRN Q2HR PRN PO PSYCHOSIS Last administered on at 20:04; Start 04/03/18 at 23:15 Warfarin Sodium (Coumadin) 4 mg DAILY PO Last administered on 04/10/18at 08:10; Start 04/06/18 at 16:00 Warfarin Sodium (Coumadin) 1 mg 1X ONCE PO Last administered on 04/05/18at 17: 45; Start 04/05/18 at 17:45; Stop 04/05/18 at 17:46; Status DC Prazosin HCl (Minipress) 1 mg HS PO Last administered on 04/05/18at 19:34; Start 04/05/18 at 21:00; Stop 04/06/18 at 18:03; Status DC Prazosin HCl (Minipress) 2 mg HS PO Last administered on 04/10/18at 20:01; Start 04/06/18 at 21:00 Active Scripts Active Coumadin (Warfarin Sodium) 3 Mg Tablet 1 Tab PO DAILY Coreg (Carvedilol) 12.5 Mg Tablet 1 Tab PO BID Reported Vitamin D3 (Cholecalciferol (Vitamin D3)) 50,000 Unit Capsule 50,000 Unit PO WEEKLY Vitamin B-12 (Cyanocobalamin (Vitamin B-12)) 1,000 Mcg Tablet 1,000 Mcg PO DAILY Probiotic (Saccharomyces Boulardii) 250 Mg Capsule 250 Mg PO DAILY Norvasc (Amlodipine Besylate) 5 Mg Tablet 5 Mg PO DAILY Nephro-Vikram Tablet (Folic Acid/Vitamin B Comp W-C) 0.8 Mg Tablet 1 Tab PO DAILY PRN EXELON 9.5mg/24hr (Rivastigmine) 1 Each Patch.td24 1 Patch TD DAILY Saline Nasal Mineral (Sodium Chloride) 30 Ml Mineral 30 Ml NS TID Mag-Al Plus Xs Suspension (Mag Hydrox/Al Hydrox/Simeth) 30 Ml Oral.susp 15 Ml PO PRN Q6HRS PRN Potassium Chloride Oral Liquid (Potassium Chloride) 20 Meq/15 Ml Liquid 20 Meq PO 3X/WEEK Administer on Thursday, Thursday and Thursday Thera-M Tablet (Multivits,Ca,Minerals/Iron/Fa) 1 Each Tablet 1 Tab PO DAILY Namenda (Memantine Hcl) 5 Mg Tablet 10 Mg PO BID Voltaren (Diclofenac Sodium) 100 Gm Gel..gram. 1 Evan TP PRN Q12HR PRN Systane 0.3-0.4% Eye Drops (Propylene Glycol/Peg 400) 15 Ml Drops 2 Drop OU PRN QID PRN Senokot-S Tablet (Sennosides/Docusate Sodium) 1 Each Tablet 1 Tab PO BID Milk Of Magnesia (Magnesium Hydroxide) 2,400 Mg/10 Ml Oral.susp 30 Ml PO PRN QHS PRN Imodium A-D (Loperamide Hcl) 1 Mg/7.5 Ml Liquid 2 Mg PO PRN Q2HR PRN Max dose of 16mg in 24 hours Dulcolax (Bisacodyl) 10 Mg Supp.rect 10 Mg RC PRN DAILY PRN Atorvastatin Calcium 20 Mg Tablet 20 Mg PO QHS Aspir-Low (Aspirin) 81 Mg Tablet.dr 81 Mg PO DAILY Proair Hfa Inhaler (Albuterol Sulfate) 8.5 Gm Hfa.aer.ad 1 Puff INH PRN Q6HRS PRN Acetaminophen 500 Mg Tablet 500 Mg PO PRN Q4HRS PRN NTE 3000mg APAP in 24 hours from all sources I have reviewed the current psychotropics carefully including drug interactions. Risk benefit ratio favors no change other than as noted in my dictated progress note. Diagnosis: Problems: (1) Agitation (2) Acute ischemic stroke (3) Syncope (4) Hemiplegia affecting left nondominant side (5) TIA (transient ischemic attack) (6) Hypertension (7) Anxiety disorder (8) Dementia, vascular, with delusions (9) Dementia, vascular, with depression (10) Impulse control disorder (11) Acute kidney injury DEAN GARDNER MD Apr 10, 2018 22:34
--- NOTE | 2018-04-11 02:26 | NUR ---
Behavior Intervention Response and Plan: BIRP Note: Behavior: Assumed Care of patient, patient located in Day Room at shift change. Patient exhibited the following behavior Calm, Interactive, Social. Brief assessment on rounds of vital signs, medication needs, lab studies, and pain. Treatment plan problems 1 and 2. Intervention: Patient assessed and the following interventions initiated safety checks 15 Minute Checks Cognitive Assessment , Head to toe Assessment , Medications. Response: After interactions and interventions patient responded in the following manner, Calm , Compliant ,Cooperative. Continue to assess behaviors and condition will continue to monitor throughout the shift as needed. Patient educated on ADL's, and hand hygiene. Plan: Continue to monitor Master Treatment Plan for patient's progress toward short term goals of Decreased Agitation, Decreased Aggression, correction goals to return to previous living setting vs placement. Continue to assess patient for changes in above assessment. Monitor for medication needs, pain, and safety concerns. Hourly rounding performed to ensure safe environment.
[2018-04-11 06:22] VITALS: BP 144/78
[2018-04-11] MEDS: ASPIRIN ENTERIC COATED 81 MG TABLET.DR. PO SCH (08:09)
[2018-04-11] MEDS: amLODIPine BESYLATE 5 MG TABLET PO SCH (08:09)
[2018-04-11] MEDS: SENNOSIDES/DOCUSATE 8.6/50MG TABLET. PO SCH ×2 (08:09→19:29)
[2018-04-11] MEDS: WARFARIN 4 MG TABLET. PO SCH (08:09)
[2018-04-11] MEDS: QUEtiapine 25 MG TABLET. PO SCH ×2 (08:09→17:31)
[2018-04-11] MEDS: LACTOBACILLUS RHAMNOSUS GG 1 CAPSULE. PO SCH ×2 (08:09→19:30)
[2018-04-11] MEDS: MULTIVITAMIN with MINERAL TABLET. PO SCH (08:10)
[2018-04-11] MEDS: RIVASTIGMINE 9.5MG PATCH. TD SCH (08:10)
[2018-04-11] MEDS: CARVEDILOL 12.5 MG TABLET PO SCH ×2 (08:10→17:31)
[2018-04-11] MEDS: CYANOCOBALAMIN (VITAMIN B-12) 1,000 MCG TABLET. PO SCH (08:10)
[2018-04-11] MEDS: MEMANTINE 10 MG TABLET. PO SCH ×2 (08:10→19:29)
[2018-04-11] MEDS: ACETAMINOPHEN 500 MG TABLET PO PRN (09:48)
--- NOTE | 2018-04-11 09:50 | NUR ---
Behavior Intervention Response and Plan: BIRP Note: Behavior: Assumed Care of patient, patient located in Hallway at shift change. Patient exhibited the following behavior Wandering, Restless, Disorganized. Brief assessment on rounds of vital signs, medication needs, lab studies, and pain. Treatment plan problems 1 & 2. Intervention: Patient assessed and the following interventions initiated safety checks 15 Minute Checks Cognitive Assessment , Medications , Head to toe Assessment. Response: After interactions and interventions patient responded in the following manner, Calm , Appropriate ,Compliant. Continue to assess behaviors and condition will continue to monitor throughout the shift as needed. Patient educated on ADL's, and hand hygiene. Plan: Continue to monitor Master Treatment Plan for patient's progress toward short term goals of Decreased Agitation, Medication Compliance, intermediate card tender goals to return to previous living setting vs placement. Continue to assess patient for changes in above assessment. Monitor for medication needs, pain, and safety concerns. Hourly rounding performed to ensure safe environment.
[2018-04-11 15:54] VITALS: BP 164/92
[2018-04-11] MEDS: PRAZOSIN 1 MG CAPSULE. PO SCH (19:29)
[2018-04-11] MEDS: ATORVASTATIN CALCIUM 20 MG TABLET PO SCH (19:30)
--- NOTE | 2018-04-11 21:05 | PDOC ---
Exam Note: [place] Note: Please also refer to the separate dictated note~for this date of service dictated separately.~Patient seen individually. Discussed the patient with Nursing staff reviewed the chart.~Reviewed interim history and current functioning. Reviewed vital signs,~Labs/ Radiology~and current medications noted below. Continue current treatment with the changes noted in the dictated addendum note Assessment: Vital Signs: Vital Signs Date Time Temp Pulse Resp B/P (MAP) Pulse Ox O2 Delivery O2 Flow Rate FiO2 04/11/18 19:29 65 164/92 04/11/18 15:54 97.2 18 99 04/10/18 06:36 Room Air I&O Intake and Output 04/11/18 07:01 Intake Total 1560 ml Balance 1560 ml Intake Oral 1560 ml Labs: Laboratory Tests Test 04/11/18 06:42 04/11/18 17:45 Prothrombin Time 17.7 SEC (9.4-11.4) H Prothrombin Time INR 1.7 (0.9-1.1) H Glucose (Fingerstick) 166 mg/dL (70-99) H Current Medications: Meds: Current Medications Acetaminophen (Tylenol) 650 mg PRN Q6HRS PRN PO PAIN / TEMP; Start 03/29/18 at 16:30; Status Cancel Multi-Ingredient Ointment (Analgesic [place]) 1 evan PRN QID PRN TP MUSCLE PAIN; Start 03/29/18 at 16:30 Al Hydroxide/Mg Hydroxide (Mylanta Plus Xs) 15 ml PRN AFTMEALHC PRN PO DYSPEPSIA; Start 03/29/18 at 16:30 Magnesium Hydroxide (Milk Of Magnesia) 2,400 mg PRN QHS PRN PO CONSTIPATION; Start 03/29/18 at 16:30 Albuterol Sulfate (Ventolin Hfa) 1 puff PRN Q6HRS PRN INH SHORTNESS OF BREATH; Start 03/29/18 at 17:00; Status UNV Atorvastatin Calcium (Lipitor) 20 mg QHS PO Last administered on 04/11/18at 19: 30; Start 03/29/18 at 21:00 Vitamin D (Vitamin D3) 50,000 unit WEEKLY PO Last administered on 04/10/18at 08: 13; Start 04/03/18 at 09:00 Cyanocobalamin (Vitamin B-12) 1,000 mcg DAILY PO Last administered on at 08:10; Start 03/30/18 at 09:00 Diclofenac Sodium (Voltaren) 1 evan PRN Q12HR PRN TP PAIN; Start 03/29/18 at 17: 00 Al Hydroxide/Mg Hydroxide (Mylanta Plus Xs) 15 ml PRN Q6HRS PRN PO DYSPEPSIA; Start 03/29/18 at 17:00; Status Cancel Multivitamins/ Calcium (Thera-M Plus) 1 tab DAILY PO Last administered on at 08:10; Start 03/30/18 at 09:00 Lactobacillus Rhamnosus (Culturelle) 1 cap BID PO Last administered on 19:30; Start 03/29/18 at 21:00 Senna/Docusate Sodium (Senna Plus) 1 tab BID PO Last administered on 04/11/18at 19:29; Start 03/29/18 at 21:00 Acetaminophen (Tylenol) 500 mg PRN Q4HRS PRN PO PAIN / TEMP Last administered on 04/11/18at 09:48; Start 03/29/18 at 17:45 Amlodipine Besylate (Norvasc) 5 mg DAILY PO Last administered on 04/11/18at 08: 09; Start 03/30/18 at 09:00 Aspirin (Aspirin Enteric Coated) 81 mg DAILY PO Last administered on 04/11/18at 08:09; Start 03/30/18 at 09:00 Bisacodyl (Dulcolax Supp) 10 mg PRN DAILY PRN [place] CONSTIPATION; Start 03/29/18 at 17:45 Carvedilol (Coreg) 12.5 mg BIDWMEALS PO Last administered on 03/30/18at 16:44; Start 03/30/18 at 08:00; Stop 03/30/18 at 17:57; Status DC Multivit/Ca Carb/ B Cmplx/FA/Prenat (Nephro-Vikram) 1 tab PRN DAILY PRN PO SUPPLEMENT; Start 03/30/18 at 09:00 Loperamide HCl (Imodium) 2 mg PRN Q2HR PRN PO DIARRHEA; Start 03/29/18 at 17:45 Non-Formulary Medication (Magnesium Hydroxide (Milk Of Magnesia)) 30 ml PRN QHS PRN PO CONSTIPATION; Start 03/29/18 at 17:00; Status UNV Memantine (Namenda) 10 mg BID PO Last administered on 04/11/18at 19:29; Start at 21:00 Potassium Chloride (Klor-Con) 20 meq 3X/WEEK PO Last administered on 04/09/18at 08:14; Start 03/31/18 at 09:00 Artificial Tears (Artificial Tears) 2 drop PRN QID PRN OU DRY EYE; Start at 18:00 Rivastigmine (Exelon) 1 patch DAILY TD Last administered on 04/11/18at 08:10; Start 03/30/18 at 09:00 Sodium Chloride (Saline Mist Nasal) 1 evan PRN TID PRN NS NASAL CONGESTION; Start 03/29/18 at 18:00 Warfarin Sodium (Coumadin) 3 mg DAILY16 PO Last administered on 04/05/18at 17:28 ; Start 03/29/18 at 18:00; Stop 04/05/18 at 17:37; Status DC Ondansetron HCl (Zofran Odt) 4 mg PRN Q4HRS PRN PO NAUSEA/VOMITING; Start at 17:30 Albuterol Sulfate (Ventolin) 2.5 mg PRN Q6HRS PRN NEB SHORTNESS OF BREATH; Start 03/29/18 at 18:00 Warfarin Sodium (Coumadin Per Physician) 1 each PRN DAILY PRN MC SEE COMMENTS; Start 03/29/18 at 18:00 Olanzapine (ZyPREXA ZYDIS) 2.5 mg PRN Q2HR PRN PO PSYCHOSIS Last administered on 04/08/18at 18:40; Start 03/29/18 at 19:15 Cefpodoxime Proxetil (Vantin) 100 mg BID PO Last administered on 04/05/18at 19: 24; Start 03/29/18 at 21:00; Stop 04/05/18 at 23:00; Status DC Amlodipine Besylate (Norvasc) 5 mg BID PRN PO ELEVATED BP, SEE COMMENTS Last administered on 03/30/18at 15:29; Start 03/30/18 at 15:30; Stop 04/06/18 at 19:36; Status DC Carvedilol (Coreg) 12.5 mg 1X ONCE PO Last administered on 03/30/18at 18:05; Start 03/30/18 at 18:00; Stop 03/30/18 at 18:01; Status DC Carvedilol (Coreg) 25 mg BIDWMEALS PO Last administered on 04/11/18at 17:31; Start 03/31/18 at 08:00 Quetiapine Fumarate (SEROquel) 12.5 mg 1X ONCE PO Last administered on at 18:21; Start 03/31/18 at 18:15; Stop 03/31/18 at 18:18; Status DC Quetiapine Fumarate (SEROquel) 12.5 mg BID@0900,1700 PO Last administered on at 17:31; Start 04/01/18 at 09:00 Hydroxyzine HCl (Atarax) 25 mg PRN Q2HR PRN PO PSYCHOSIS Last administered on at 20:04; Start 04/03/18 at 23:15 Warfarin Sodium (Coumadin) 4 mg DAILY PO Last administered on 04/11/18at 08:09; Start 04/06/18 at 16:00 Warfarin Sodium (Coumadin) 1 mg 1X ONCE PO Last administered on 04/05/18at 17: 45; Start 04/05/18 at 17:45; Stop 04/05/18 at 17:46; Status DC Prazosin HCl (Minipress) 1 mg HS PO Last administered on 04/05/18at 19:34; Start 04/05/18 at 21:00; Stop 04/06/18 at 18:03; Status DC Prazosin HCl (Minipress) 2 mg HS PO Last administered on 04/11/18at 19:29; Start 04/06/18 at 21:00 Furosemide (Lasix) 40 mg DAILY PO ; Start 04/12/18 at 09:00 Potassium Chloride (Klor-Con) 20 meq DAILYWBKFT PO ; Start 04/12/18 at 08:00 Active Scripts Active Coumadin (Warfarin Sodium) 3 Mg Tablet 1 Tab PO DAILY Coreg (Carvedilol) 12.5 Mg Tablet 1 Tab PO BID Reported Vitamin D3 (Cholecalciferol (Vitamin D3)) 50,000 Unit Capsule 50,000 Unit PO WEEKLY Vitamin B-12 (Cyanocobalamin (Vitamin B-12)) 1,000 Mcg Tablet 1,000 Mcg PO DAILY Probiotic (Saccharomyces Boulardii) 250 Mg Capsule 250 Mg PO DAILY Norvasc (Amlodipine Besylate) 5 Mg Tablet 5 Mg PO DAILY Nephro-Vikram Tablet (Folic Acid/Vitamin B Comp W-C) 0.8 Mg Tablet 1 Tab PO DAILY PRN EXELON 9.5mg/24hr (Rivastigmine) 1 Each Patch.td24 1 Patch TD DAILY Saline Nasal [place] (Sodium Chloride) 30 Ml [place] 30 Ml NS TID Mag-Al Plus Xs Suspension (Mag Hydrox/Al Hydrox/Simeth) 30 Ml Oral.susp 15 Ml PO PRN Q6HRS PRN Potassium Chloride Oral Liquid (Potassium Chloride) 20 Meq/15 Ml Liquid 20 Meq PO 3X/WEEK Administer on Thursday, Thursday and Thursday Thera-M Tablet (Multivits,Ca,Minerals/Iron/Fa) 1 Each Tablet 1 Tab PO DAILY Namenda (Memantine Hcl) 5 Mg Tablet 10 Mg PO BID Voltaren (Diclofenac Sodium) 100 Gm Gel..gram. 1 Evan TP PRN Q12HR PRN Systane 0.3-0.4% Eye Drops (Propylene Glycol/Peg 400) 15 Ml Drops 2 Drop OU PRN QID PRN Senokot-S Tablet (Sennosides/Docusate Sodium) 1 Each Tablet 1 Tab PO BID Milk Of Magnesia (Magnesium Hydroxide) 2,400 Mg/10 Ml Oral.susp 30 Ml PO PRN QHS PRN Imodium A-D (Loperamide Hcl) 1 Mg/7.5 Ml Liquid 2 Mg PO PRN Q2HR PRN Max dose of 16mg in 24 hours Dulcolax (Bisacodyl) 10 Mg Supp.rect 10 Mg RC PRN DAILY PRN Atorvastatin Calcium 20 Mg Tablet 20 Mg PO QHS Aspir-Low (Aspirin) 81 Mg Tablet.dr 81 Mg PO DAILY Proair Hfa Inhaler (Albuterol Sulfate) 8.5 Gm Hfa.aer.ad 1 Puff INH PRN Q6HRS PRN Acetaminophen 500 Mg Tablet 500 Mg PO PRN Q4HRS PRN NTE 3000mg APAP in 24 hours from all sources I have reviewed the current psychotropics carefully including drug interactions. Risk benefit ratio favors no change other than as noted in my dictated progress note. Diagnosis: Problems: (1) Agitation (2) Acute ischemic stroke (3) Syncope (4) Hemiplegia affecting left nondominant side (5) TIA (transient ischemic attack) (6) Hypertension (7) Anxiety disorder (8) Dementia, vascular, with delusions (9) Dementia, vascular, with depression (10) Impulse control disorder (11) Acute kidney injury DEAN GARDNER MD Apr 11, 2018 21:05
--- NOTE | 2018-04-12 01:26 | NUR ---
Behavior Intervention Response and Plan: BIRP Note: Behavior: Assumed Care of patient, patient located in Day Room at shift change. Patient exhibited the following behavior Calm, Social, Interactive. Brief assessment on rounds of vital signs, medication needs, lab studies, and pain. Treatment plan problems 1 and 2. Intervention: Patient assessed and the following interventions initiated safety checks 15 Minute Checks Cognitive Assessment , Head to toe Assessment , Medications. Response: After interactions and interventions patient responded in the following manner, Calm , Compliant ,Cooperative. Continue to assess behaviors and condition will continue to monitor throughout the shift as needed. Patient educated on ADL's, and hand hygiene. Plan: Continue to monitor Master Treatment Plan for patient's progress toward short term goals of Decreased Agitation, Improved Mood, detention goals to return to previous living setting vs placement. Continue to assess patient for changes in above assessment. Monitor for medication needs, pain, and safety concerns. Hourly rounding performed to ensure safe environment.
--- NOTE | 2018-04-12 02:42 | PN ---
DATE: 04/09/2018 PSYCHIATRIC PROGRESS NOTE This late entry 04/09/2018, covers elements not covered in my initial note. SUBJECTIVE: Met with the patient in the evening. The patient had a nap around 4:00 p.m. got up and was yelling, agitated, then seemed to settle down, did well after that. REVIEW OF SYSTEMS: Ambulation impaired, in a Broda chair. No CV, , pulmonary, eye, ENT system symptoms on review. Reliability poor. MENTAL STATUS EXAM: Oriented to himself. Insight, judgment, recent, remote memory, attention, concentration, fund of knowledge is poor, consistent with his diagnoses. Quite a bit more pleasant, verbal, pleasant, smiling as I met with him. PLAN: Continue current psychotropics. Adjust as clinically indicated. MAN Beny GARDNER MD DR: DAMIEN/rose JOB#: [id number] / [id number]
[2018-04-12] MEDS: ACETAMINOPHEN 500 MG TABLET PO PRN (03:34)
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
[2018-04-12 06:26] VITALS: BP 136/80
[2018-04-12] MEDS: QUEtiapine 25 MG TABLET. PO SCH ×2 (08:15→17:39)
[2018-04-12] MEDS: SENNOSIDES/DOCUSATE 8.6/50MG TABLET. PO SCH ×2 (08:16→19:30)
[2018-04-12] MEDS: POTASSIUM CHLORIDE 20 MEQ TABLET.ER. PO SCH ×2 (08:16→08:20)
[2018-04-12] MEDS: ASPIRIN ENTERIC COATED 81 MG TABLET.DR. PO SCH (08:16)
[2018-04-12] MEDS: CARVEDILOL 12.5 MG TABLET PO SCH ×2 (08:16→17:40)
[2018-04-12] MEDS: CYANOCOBALAMIN (VITAMIN B-12) 1,000 MCG TABLET. PO SCH (08:17)
[2018-04-12] MEDS: LACTOBACILLUS RHAMNOSUS GG 1 CAPSULE. PO SCH ×2 (08:17→19:29)
[2018-04-12] MEDS: MULTIVITAMIN with MINERAL TABLET. PO SCH (08:17)
[2018-04-12] MEDS: WARFARIN 4 MG TABLET. PO SCH (08:17)
[2018-04-12] MEDS: MEMANTINE 10 MG TABLET. PO SCH ×2 (08:17→19:30)
[2018-04-12] MEDS: amLODIPine BESYLATE 5 MG TABLET PO SCH (08:17)
[2018-04-12] MEDS: RIVASTIGMINE 9.5MG PATCH. TD SCH (08:18)
[2018-04-12] MEDS: FUROSEMIDE 40 MG TABLET PO SCH (08:20)
[2018-04-12 16:25] VITALS: BP 152/81
--- NOTE | 2018-04-12 19:18 | PN ---
DATE: 04/10/2018 PSYCHIATRIC PROGRESS NOTE This is a late entry for 04/10/2018, covers elements not covered in my initial note of 04/10/2018. SUBJECTIVE: I met with the patient in the evening. Overall, the patient remains somewhat withdrawn, but not agitated or aggressive. REVIEW OF SYSTEMS: Ambulation impaired, in Broda chair. No CV, , pulmonary, eye, ENT system symptoms on review. Reliability poor. He is very pleasant, verbal, smiling as I met with him, oblivious of his surroundings. MENTAL STATUS EXAM: Oriented to himself. Insight, judgment, recent and remote memory, attention, concentration, fund of knowledge poor, consistent with his diagnosis mentioned in my initial note. IMPRESSION: Major neurocognitive disorder, Alzheimer, vascular with delusion, depression, behavioral disturbance. Rest unchanged. PLAN: Continue psychotropics from my initial note. MAN Beny GARDNER MD DR: DAMIEN/rose JOB#: [id number] / [id number]
--- NOTE | 2018-04-12 19:21 | PN ---
DATE: 04/11/2018 PSYCHIATRIC PROGRESS NOTE This is a late entry for 04/11/2018, covers elements not covered in my initial note. SUBJECTIVE: I met with the patient in the evening. The patient remains confused, withdrawn, not agitated or aggressive. He is pleasant, verbal, smiling as I met with him, oblivious of his surroundings. REVIEW OF SYSTEMS: Ambulation impaired, in Broda chair. No CV, , pulmonary, eye system symptoms on review. Reliability poor. MENTAL STATUS EXAM: Oriented to himself. Insight, judgment, recent and remote memory, attention, concentration, fund of knowledge poor, consistent with his diagnosis mentioned in my initial note. IMPRESSION: Major depressive disorder, recurrent, in partial remission; major neurocognitive disorder, Alzheimer, vascular with delusion, depression, behavioral disturbance. Rest unchanged. PLAN: Continue current psychotropics. Transition to shelter this coming week. MAN Beny GARDNER MD DR: DAMIEN/rose JOB#: [id number] / [id number]
[2018-04-12] MEDS: ATORVASTATIN CALCIUM 20 MG TABLET PO SCH (19:29)
[2018-04-12] MEDS: PRAZOSIN 1 MG CAPSULE. PO SCH (19:30)
[2018-04-12] MEDS: hydrOXYzine HCL 25 MG TABLET PO PRN (19:32)
--- NOTE | 2018-04-12 21:08 | PDOC ---
Exam Note: [place] Note: Please also refer to the separate dictated note~for this date of service dictated separately.~Patient seen individually. Discussed the patient with Nursing staff reviewed the chart.~Reviewed interim history and current functioning. Reviewed vital signs,~Labs/ Radiology~and current medications noted below. Continue current treatment with the changes noted in the dictated addendum note Assessment: Vital Signs: Vital Signs Date Time Temp Pulse Resp B/P (MAP) Pulse Ox O2 Delivery O2 Flow Rate FiO2 04/12/18 19:30 69 152/81 04/12/18 16:25 98.3 16 95 Room Air I&O Intake and Output 04/12/18 07:01 Intake Total 1320 ml Balance 1320 ml Intake Oral 1320 ml Labs: Laboratory Tests Test 04/12/18 09:22 Prothrombin Time 19.6 SEC (9.4-11.4) H Prothrombin Time INR 1.9 (0.9-1.1) H Current Medications: Meds: Current Medications Acetaminophen (Tylenol) 650 mg PRN Q6HRS PRN PO PAIN / TEMP; Start 03/29/18 at 16:30; Status Cancel Multi-Ingredient Ointment (Analgesic [place]) 1 evan PRN QID PRN TP MUSCLE PAIN; Start 03/29/18 at 16:30 Al Hydroxide/Mg Hydroxide (Mylanta Plus Xs) 15 ml PRN AFTMEALHC PRN PO DYSPEPSIA; Start 03/29/18 at 16:30 Magnesium Hydroxide (Milk Of Magnesia) 2,400 mg PRN QHS PRN PO CONSTIPATION; Start 03/29/18 at 16:30 Albuterol Sulfate (Ventolin Hfa) 1 puff PRN Q6HRS PRN INH SHORTNESS OF BREATH; Start 03/29/18 at 17:00; Status UNV Atorvastatin Calcium (Lipitor) 20 mg QHS PO Last administered on 04/12/18at 19: 29; Start 03/29/18 at 21:00 Vitamin D (Vitamin D3) 50,000 unit WEEKLY PO Last administered on 04/10/18at 08: 13; Start 04/03/18 at 09:00 Cyanocobalamin (Vitamin B-12) 1,000 mcg DAILY PO Last administered on at 08:17; Start 03/30/18 at 09:00 Diclofenac Sodium (Voltaren) 1 evan PRN Q12HR PRN TP PAIN; Start 03/29/18 at 17: 00 Al Hydroxide/Mg Hydroxide (Mylanta Plus Xs) 15 ml PRN Q6HRS PRN PO DYSPEPSIA; Start 03/29/18 at 17:00; Status Cancel Multivitamins/ Calcium (Thera-M Plus) 1 tab DAILY PO Last administered on at 08:17; Start 03/30/18 at 09:00 Lactobacillus Rhamnosus (Culturelle) 1 cap BID PO Last administered on at 19:29; Start 03/29/18 at 21:00 Senna/Docusate Sodium (Senna Plus) 1 tab BID PO Last administered on 04/12/18 19:30; Start 03/29/18 at 21:00 Acetaminophen (Tylenol) 500 mg PRN Q4HRS PRN PO PAIN / TEMP Last administered on 04/12/18at 03:34; Start 03/29/18 at 17:45 Amlodipine Besylate (Norvasc) 5 mg DAILY PO Last administered on 04/12/18at 08: 17; Start 03/30/18 at 09:00 Aspirin (Aspirin Enteric Coated) 81 mg DAILY PO Last administered on 04/12/18at 08:16; Start 03/30/18 at 09:00 Bisacodyl (Dulcolax Supp) 10 mg PRN DAILY PRN [place] CONSTIPATION; Start 03/29/18 at 17:45 Carvedilol (Coreg) 12.5 mg BIDWMEALS PO Last administered on 03/30/18at 16:44; Start 03/30/18 at 08:00; Stop 03/30/18 at 17:57; Status DC Multivit/Ca Carb/ B Cmplx/FA/Prenat (Nephro-Vikram) 1 tab PRN DAILY PRN PO SUPPLEMENT; Start 03/30/18 at 09:00 Loperamide HCl (Imodium) 2 mg PRN Q2HR PRN PO DIARRHEA; Start 03/29/18 at 17:45 Non-Formulary Medication (Magnesium Hydroxide (Milk Of Magnesia)) 30 ml PRN QHS PRN PO CONSTIPATION; Start 03/29/18 at 17:00; Status UNV Memantine (Namenda) 10 mg BID PO Last administered on 04/12/18at 19:30; Start at 21:00 Potassium Chloride (Klor-Con) 20 meq 3X/WEEK PO Last administered on 04/12/18at 08:20; Start 03/31/18 at 09:00 Artificial Tears (Artificial Tears) 2 drop PRN QID PRN OU DRY EYE; Start at 18:00 Rivastigmine (Exelon) 1 patch DAILY TD Last administered on 04/12/18at 08:18; Start 03/30/18 at 09:00 Sodium Chloride (Saline Mist Nasal) 1 evan PRN TID PRN NS NASAL CONGESTION; Start 03/29/18 at 18:00 Warfarin Sodium (Coumadin) 3 mg DAILY16 PO Last administered on 04/05/18at 17:28 ; Start 03/29/18 at 18:00; Stop 04/05/18 at 17:37; Status DC Ondansetron HCl (Zofran Odt) 4 mg PRN Q4HRS PRN PO NAUSEA/VOMITING; Start at 17:30 Albuterol Sulfate (Ventolin) 2.5 mg PRN Q6HRS PRN NEB SHORTNESS OF BREATH; Start 03/29/18 at 18:00 Warfarin Sodium (Coumadin Per Physician) 1 each PRN DAILY PRN MC SEE COMMENTS; Start 03/29/18 at 18:00 Olanzapine (ZyPREXA ZYDIS) 2.5 mg PRN Q2HR PRN PO PSYCHOSIS Last administered on 04/12/18at 19:33; Start 03/29/18 at 19:15 Cefpodoxime Proxetil (Vantin) 100 mg BID PO Last administered on 04/05/18at 19: 24; Start 03/29/18 at 21:00; Stop 04/05/18 at 23:00; Status DC Amlodipine Besylate (Norvasc) 5 mg BID PRN PO ELEVATED BP, SEE COMMENTS Last administered on 03/30/18at 15:29; Start 03/30/18 at 15:30; Stop 04/06/18 at 19:36; Status DC Carvedilol (Coreg) 12.5 mg 1X ONCE PO Last administered on 03/30/18 18:05; Start 03/30/18 at 18:00; Stop 03/30/18 at 18:01; Status DC Carvedilol (Coreg) 25 mg BIDWMEALS PO Last administered on 04/12/18at 17:40; Start 03/31/18 at 08:00 Quetiapine Fumarate (SEROquel) 12.5 mg 1X ONCE PO Last administered on at 18:21; Start 03/31/18 at 18:15; Stop 03/31/18 at 18:18; Status DC Quetiapine Fumarate (SEROquel) 12.5 mg BID@0900,1700 PO Last administered on at 17:39; Start 04/01/18 at 09:00 Hydroxyzine HCl (Atarax) 25 mg PRN Q2HR PRN PO PSYCHOSIS Last administered on at 19:32; Start 04/03/18 at 23:15 Warfarin Sodium (Coumadin) 4 mg DAILY PO Last administered on 04/12/18at 08:17; Start 04/06/18 at 16:00 Warfarin Sodium (Coumadin) 1 mg 1X ONCE PO Last administered on 04/05/18at 17: 45; Start 04/05/18 at 17:45; Stop 04/05/18 at 17:46; Status DC Prazosin HCl (Minipress) 1 mg HS PO Last administered on 04/05/18at 19:34; Start 04/05/18 at 21:00; Stop 04/06/18 at 18:03; Status DC Prazosin HCl (Minipress) 2 mg HS PO Last administered on 04/12/18at 19:30; Start 04/06/18 at 21:00 Furosemide (Lasix) 40 mg DAILY PO Last administered on 04/12/18at 08:20; Start 04/12/18 at 09:00 Potassium Chloride (Klor-Con) 20 meq DAILYWBKFT PO Last administered on at 08:16; Start 04/12/18 at 08:00 Active Scripts Active Coumadin (Warfarin Sodium) 3 Mg Tablet 1 Tab PO DAILY Coreg (Carvedilol) 12.5 Mg Tablet 1 Tab PO BID Reported Vitamin D3 (Cholecalciferol (Vitamin D3)) 50,000 Unit Capsule 50,000 Unit PO WEEKLY Vitamin B-12 (Cyanocobalamin (Vitamin B-12)) 1,000 Mcg Tablet 1,000 Mcg PO DAILY Probiotic (Saccharomyces Boulardii) 250 Mg Capsule 250 Mg PO DAILY Norvasc (Amlodipine Besylate) 5 Mg Tablet 5 Mg PO DAILY Nephro-Vikram Tablet (Folic Acid/Vitamin B Comp W-C) 0.8 Mg Tablet 1 Tab PO DAILY PRN EXELON 9.5mg/24hr (Rivastigmine) 1 Each Patch.td24 1 Patch TD DAILY Saline Nasal [place] (Sodium Chloride) 30 Ml [place] 30 Ml NS TID Mag-Al Plus Xs Suspension (Mag Hydrox/Al Hydrox/Simeth) 30 Ml Oral.susp 15 Ml PO PRN Q6HRS PRN Potassium Chloride Oral Liquid (Potassium Chloride) 20 Meq/15 Ml Liquid 20 Meq PO 3X/WEEK Administer on Thursday, Thursday and Thursday Thera-M Tablet (Multivits,Ca,Minerals/Iron/Fa) 1 Each Tablet 1 Tab PO DAILY Namenda (Memantine Hcl) 5 Mg Tablet 10 Mg PO BID Voltaren (Diclofenac Sodium) 100 Gm Gel..gram. 1 Evan TP PRN Q12HR PRN Systane 0.3-0.4% Eye Drops (Propylene Glycol/Peg 400) 15 Ml Drops 2 Drop OU PRN QID PRN Senokot-S Tablet (Sennosides/Docusate Sodium) 1 Each Tablet 1 Tab PO BID Milk Of Magnesia (Magnesium Hydroxide) 2,400 Mg/10 Ml Oral.susp 30 Ml PO PRN QHS PRN Imodium A-D (Loperamide Hcl) 1 Mg/7.5 Ml Liquid 2 Mg PO PRN Q2HR PRN Max dose of 16mg in 24 hours Dulcolax (Bisacodyl) 10 Mg Supp.rect 10 Mg RC PRN DAILY PRN Atorvastatin Calcium 20 Mg Tablet 20 Mg PO QHS Aspir-Low (Aspirin) 81 Mg Tablet.dr 81 Mg PO DAILY Proair Hfa Inhaler (Albuterol Sulfate) 8.5 Gm Hfa.aer.ad 1 Puff INH PRN Q6HRS PRN Acetaminophen 500 Mg Tablet 500 Mg PO PRN Q4HRS PRN NTE 3000mg APAP in 24 hours from all sources I have reviewed the current psychotropics carefully including drug interactions. Risk benefit ratio favors no change other than as noted in my dictated progress note. Diagnosis: Problems: (1) Agitation (2) Acute ischemic stroke (3) Syncope (4) Hemiplegia affecting left nondominant side (5) TIA (transient ischemic attack) (6) Hypertension (7) Anxiety disorder (8) Dementia, vascular, with delusions (9) Dementia, vascular, with depression (10) Impulse control disorder (11) Acute kidney injury DENA GARDNER MD Apr 12, 2018 21:08
--- NOTE | 2018-04-12 21:36 | NUR ---
Nursing Note: Assumed care of pt in dayroom, sitting quietly, seemed happy to see me and asked where I had been. Pt compliant w/meds and assessment. Ready for a shower and then a snack before bed.
[2018-04-13 06:11] VITALS: BP 146/76
[2018-04-13] MEDS: LACTOBACILLUS RHAMNOSUS GG 1 CAPSULE. PO SCH ×2 (08:44→19:32)
[2018-04-13] MEDS: ASPIRIN ENTERIC COATED 81 MG TABLET.DR. PO SCH (08:44)
[2018-04-13] MEDS: POTASSIUM CHLORIDE 20 MEQ TABLET.ER. PO SCH (08:44)
[2018-04-13] MEDS: amLODIPine BESYLATE 5 MG TABLET PO SCH (08:45)
[2018-04-13] MEDS: FUROSEMIDE 40 MG TABLET PO SCH (08:45)
[2018-04-13] MEDS: SENNOSIDES/DOCUSATE 8.6/50MG TABLET. PO SCH ×2 (08:45→19:33)
[2018-04-13] MEDS: MEMANTINE 10 MG TABLET. PO SCH ×2 (08:45→19:33)
[2018-04-13] MEDS: QUEtiapine 25 MG TABLET. PO SCH ×2 (08:46→16:33)
[2018-04-13] MEDS: CYANOCOBALAMIN (VITAMIN B-12) 1,000 MCG TABLET. PO SCH (08:46)
[2018-04-13] MEDS: MULTIVITAMIN with MINERAL TABLET. PO SCH (08:46)
[2018-04-13] MEDS: RIVASTIGMINE 9.5MG PATCH. TD SCH (08:46)
[2018-04-13] MEDS: WARFARIN 4 MG TABLET. PO SCH (08:48)
[2018-04-13] MEDS: CARVEDILOL 12.5 MG TABLET PO SCH ×3 (08:57→16:32)
--- NOTE | 2018-04-13 10:44 | NUR ---
Behavior Intervention Response and Plan: BIRP Note: Behavior: Assumed Care of patient, patient located in Day Room at shift change. Patient exhibited the following behavior Calm, Social, Interactive. Brief assessment on rounds of vital signs, medication needs, lab studies, and pain. Treatment plan problems 1 and 2. Intervention: Patient assessed and the following interventions initiated safety checks 15 Minute Checks Cognitive Assessment , Head to toe Assessment , Medications. Response: After interactions and interventions patient responded in the following manner, Calm , Interactive,Cooperative. Continue to assess behaviors and condition will continue to monitor throughout the shift as needed. Patient educated on ADL's, and hand hygiene. 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 Continue to assess patient for changes in above assessment. Monitor for medication needs, pain, and safety concerns. Hourly rounding performed to ensure safe environment.
[2018-04-13 15:56] VITALS: BP 162/86
[2018-04-13] MEDS: PRAZOSIN 1 MG CAPSULE. PO SCH (19:33)
[2018-04-13] MEDS: ATORVASTATIN CALCIUM 20 MG TABLET PO SCH (19:33)
[2018-04-13] MEDS: ACETAMINOPHEN 500 MG TABLET PO PRN (19:34)
--- NOTE | 2018-04-13 21:06 | PDOC ---
Exam Note: [place] Note: Please also refer to the separate dictated note~for this date of service dictated separately.~Patient seen individually. Discussed the patient with Nursing staff reviewed the chart.~Reviewed interim history and current functioning. Reviewed vital signs,~Labs/ Radiology~and current medications noted below. Continue current treatment with the changes noted in the dictated addendum note Assessment: Vital Signs: Vital Signs Date Time Temp Pulse Resp B/P (MAP) Pulse Ox O2 Delivery O2 Flow Rate FiO2 04/13/18 19:33 111 162/86 04/13/18 15:56 97.4 20 95 04/12/18 16:25 Room Air I&O Intake and Output 04/13/18 07:00 Intake Total 840 ml Balance 840 ml Intake Oral 840 ml # Bowel Movements 1 Current Medications: Meds: Current Medications Acetaminophen (Tylenol) 650 mg PRN Q6HRS PRN PO PAIN / TEMP; Start 03/29/18 at 16:30; Status Cancel Multi-Ingredient Ointment (Analgesic [place]) 1 evan PRN QID PRN TP MUSCLE PAIN; Start 03/29/18 at 16:30 Al Hydroxide/Mg Hydroxide (Mylanta Plus Xs) 15 ml PRN AFTMEALHC PRN PO DYSPEPSIA; Start 03/29/18 at 16:30 Magnesium Hydroxide (Milk Of Magnesia) 2,400 mg PRN QHS PRN PO CONSTIPATION; Start 03/29/18 at 16:30 Albuterol Sulfate (Ventolin Hfa) 1 puff PRN Q6HRS PRN INH SHORTNESS OF BREATH; Start 03/29/18 at 17:00; Status UNV Atorvastatin Calcium (Lipitor) 20 mg QHS PO Last administered on 04/13/18at 19: 33; Start 03/29/18 at 21:00 Vitamin D (Vitamin D3) 50,000 unit WEEKLY PO Last administered on 04/10/18at 08: 13; Start 04/03/18 at 09:00 Cyanocobalamin (Vitamin B-12) 1,000 mcg DAILY PO Last administered on at 08:46; Start 03/30/18 at 09:00 Diclofenac Sodium (Voltaren) 1 evan PRN Q12HR PRN TP PAIN; Start 03/29/18 at 17: 00 Al Hydroxide/Mg Hydroxide (Mylanta Plus Xs) 15 ml PRN Q6HRS PRN PO DYSPEPSIA; Start 03/29/18 at 17:00; Status Cancel Multivitamins/ Calcium (Thera-M Plus) 1 tab DAILY PO Last administered on 08:46; Start 03/30/18 at 09:00 Lactobacillus Rhamnosus (Culturelle) 1 cap BID PO Last administered on 19:32; Start 03/29/18 at 21:00 Senna/Docusate Sodium (Senna Plus) 1 tab BID PO Last administered on 04/13/18 19:33; Start 03/29/18 at 21:00 Acetaminophen (Tylenol) 500 mg PRN Q4HRS PRN PO PAIN / TEMP Last administered on 04/13/18 19:34; Start 03/29/18 at 17:45 Amlodipine Besylate (Norvasc) 5 mg DAILY PO Last administered on 04/13/18 08: 45; Start 03/30/18 at 09:00 Aspirin (Aspirin Enteric Coated) 81 mg DAILY PO Last administered on 04/13/18at 08:44; Start 03/30/18 at 09:00 Bisacodyl (Dulcolax Supp) 10 mg PRN DAILY PRN IN CONSTIPATION; Start 03/29/18 at 17:45 Carvedilol (Coreg) 12.5 mg BIDWMEALS PO Last administered on 03/30/18at 16:44; Start 03/30/18 at 08:00; Stop 03/30/18 at 17:57; Status DC Multivit/Ca Carb/ B Cmplx/FA/Prenat (Nephro-Vikram) 1 tab PRN DAILY PRN PO SUPPLEMENT; Start 03/30/18 at 09:00 Loperamide HCl (Imodium) 2 mg PRN Q2HR PRN PO DIARRHEA; Start 03/29/18 at 17:45 Non-Formulary Medication (Magnesium Hydroxide (Milk Of Magnesia)) 30 ml PRN QHS PRN PO CONSTIPATION; Start 03/29/18 at 17:00; Status UNV Memantine (Namenda) 10 mg BID PO Last administered on 04/13/18 19:33; Start at 21:00 Potassium Chloride (Klor-Con) 20 meq 3X/WEEK PO Last administered on 6/18/18at 08:20; Start 03/31/18 at 09:00 Artificial Tears (Artificial Tears) 2 drop PRN QID PRN OU DRY EYE; Start at 18:00 Rivastigmine (Exelon) 1 patch DAILY TD Last administered on 04/13/18at 08:46; Start 03/30/18 at 09:00 Sodium Chloride (Saline Mist Nasal) 1 evan PRN TID PRN NS NASAL CONGESTION; Start 03/29/18 at 18:00 Warfarin Sodium (Coumadin) 3 mg DAILY16 PO Last administered on 04/05/18at 17:28 ; Start 03/29/18 at 18:00; Stop 04/05/18 at 17:37; Status DC Ondansetron HCl (Zofran Odt) 4 mg PRN Q4HRS PRN PO NAUSEA/VOMITING; Start at 17:30 Albuterol Sulfate (Ventolin) 2.5 mg PRN Q6HRS PRN NEB SHORTNESS OF BREATH; Start 03/29/18 at 18:00 Warfarin Sodium (Coumadin Per Physician) 1 each PRN DAILY PRN MC SEE COMMENTS; Start 03/29/18 at 18:00 Olanzapine (ZyPREXA ZYDIS) 2.5 mg PRN Q2HR PRN PO PSYCHOSIS Last administered on 04/12/18at 19:33; Start 03/29/18 at 19:15 Cefpodoxime Proxetil (Vantin) 100 mg BID PO Last administered on 04/05/18at 19: 24; Start 03/29/18 at 21:00; Stop 04/05/18 at 23:00; Status DC Amlodipine Besylate (Norvasc) 5 mg BID PRN PO ELEVATED BP, SEE COMMENTS Last administered on 03/30/18at 15:29; Start 03/30/18 at 15:30; Stop 04/06/18 at 19:36; Status DC Carvedilol (Coreg) 12.5 mg 1X ONCE PO Last administered on 03/30/18at 18:05; Start 03/30/18 at 18:00; Stop 03/30/18 at 18:01; Status DC Carvedilol (Coreg) 25 mg BIDWMEALS PO Last administered on 04/13/18at 16:32; Start 03/31/18 at 08:00 Quetiapine Fumarate (SEROquel) 12.5 mg 1X ONCE PO Last administered on at 18:21; Start 03/31/18 at 18:15; Stop 03/31/18 at 18:18; Status DC Quetiapine Fumarate (SEROquel) 12.5 mg BID@0900,1700 PO Last administered on at 16:33; Start 04/01/18 at 09:00 Hydroxyzine HCl (Atarax) 25 mg PRN Q2HR PRN PO PSYCHOSIS Last administered on at 19:32; Start 04/03/18 at 23:15 Warfarin Sodium (Coumadin) 4 mg DAILY PO Last administered on 04/13/18at 08:48; Start 04/06/18 at 16:00 Warfarin Sodium (Coumadin) 1 mg 1X ONCE PO Last administered on 04/05/18at 17: 45; Start 04/05/18 at 17:45; Stop 04/05/18 at 17:46; Status DC Prazosin HCl (Minipress) 1 mg HS PO Last administered on 04/05/18at 19:34; Start 04/05/18 at 21:00; Stop 04/06/18 at 18:03; Status DC Prazosin HCl (Minipress) 2 mg HS PO Last administered on 04/13/18at 19:33; Start 04/06/18 at 21:00 Furosemide (Lasix) 40 mg DAILY PO Last administered on 04/13/18at 08:45; Start 04/12/18 at 09:00 Potassium Chloride (Klor-Con) 20 meq DAILYWBKFT PO Last administered on at 08:44; Start 04/12/18 at 08:00 Active Scripts Active Coumadin (Warfarin Sodium) 3 Mg Tablet 1 Tab PO DAILY Coreg (Carvedilol) 12.5 Mg Tablet 1 Tab PO BID Reported Vitamin D3 (Cholecalciferol (Vitamin D3)) 50,000 Unit Capsule 50,000 Unit PO WEEKLY Vitamin B-12 (Cyanocobalamin (Vitamin B-12)) 1,000 Mcg Tablet 1,000 Mcg PO DAILY Probiotic (Saccharomyces Boulardii) 250 Mg Capsule 250 Mg PO DAILY Norvasc (Amlodipine Besylate) 5 Mg Tablet 5 Mg PO DAILY Nephro-Vikram Tablet (Folic Acid/Vitamin B Comp W-C) 0.8 Mg Tablet 1 Tab PO DAILY PRN EXELON 9.5mg/24hr (Rivastigmine) 1 Each Patch.td24 1 Patch TD DAILY Saline Nasal [place] (Sodium Chloride) 30 Ml [place] 30 Ml NS TID Mag-Al Plus Xs Suspension (Mag Hydrox/Al Hydrox/Simeth) 30 Ml Oral.susp 15 Ml PO PRN Q6HRS PRN Potassium Chloride Oral Liquid (Potassium Chloride) 20 Meq/15 Ml Liquid 20 Meq PO 3X/WEEK Administer on Thursday, Thursday and Thursday Thera-M Tablet (Multivits,Ca,Minerals/Iron/Fa) 1 Each Tablet 1 Tab PO DAILY Namenda (Memantine Hcl) 5 Mg Tablet 10 Mg PO BID Voltaren (Diclofenac Sodium) 100 Gm Gel..gram. 1 Evan TP PRN Q12HR PRN Systane 0.3-0.4% Eye Drops (Propylene Glycol/Peg 400) 15 Ml Drops 2 Drop OU PRN QID PRN Senokot-S Tablet (Sennosides/Docusate Sodium) 1 Each Tablet 1 Tab PO BID Milk Of Magnesia (Magnesium Hydroxide) 2,400 Mg/10 Ml Oral.susp 30 Ml PO PRN QHS PRN Imodium A-D (Loperamide Hcl) 1 Mg/7.5 Ml Liquid 2 Mg PO PRN Q2HR PRN Max dose of 16mg in 24 hours Dulcolax (Bisacodyl) 10 Mg Supp.rect 10 Mg RC PRN DAILY PRN Atorvastatin Calcium 20 Mg Tablet 20 Mg PO QHS Aspir-Low (Aspirin) 81 Mg Tablet.dr 81 Mg PO DAILY Proair Hfa Inhaler (Albuterol Sulfate) 8.5 Gm Hfa.aer.ad 1 Puff INH PRN Q6HRS PRN Acetaminophen 500 Mg Tablet 500 Mg PO PRN Q4HRS PRN NTE 3000mg APAP in 24 hours from all sources I have reviewed the current psychotropics carefully including drug interactions. Risk benefit ratio favors no change other than as noted in my dictated progress note. Diagnosis: Problems: (1) Agitation (2) Acute ischemic stroke (3) Syncope (4) Hemiplegia affecting left nondominant side (5) TIA (transient ischemic attack) (6) Hypertension (7) Anxiety disorder (8) Dementia, vascular, with delusions (9) Dementia, vascular, with depression (10) Impulse control disorder (11) Acute kidney injury DEAN GARDNER MD Apr 13, 2018 21:06
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
--- NOTE | 2018-04-13 21:39 | NUR ---
Nursing note: Assumed care of pt in day room. He was sitting quietly but c/o pain and swelling in L Leg. Compliant w/meds and assessment. Elevated leg to reduce swelling.
[2018-04-13] MEDS: hydrOXYzine HCL 25 MG TABLET PO PRN (21:43)
--- NOTE | 2018-04-13 21:54 | NUR ---
Nursing note: Behavior Pt yelling out from room that he wants to get out of bed. Explained to pt that he had been sitting up too much today and needed to be in bed w/his leg elevated to alleviate the swelling. He was delusional and uncooperative believing he may have been bitten by a snake. Unable to redirect pt so gave atarax and zydis as ordered to help calm him.
[2018-04-14 06:09] VITALS: BP 130/86
[2018-04-14] MEDS: POTASSIUM CHLORIDE 20 MEQ TABLET.ER. PO SCH ×2 (08:21→08:26)
[2018-04-14] MEDS: SENNOSIDES/DOCUSATE 8.6/50MG TABLET. PO SCH ×2 (08:21→19:59)
[2018-04-14] MEDS: ASPIRIN ENTERIC COATED 81 MG TABLET.DR. PO SCH (08:21)
[2018-04-14] MEDS: RIVASTIGMINE 9.5MG PATCH. TD SCH (08:21)
[2018-04-14] MEDS: CYANOCOBALAMIN (VITAMIN B-12) 1,000 MCG TABLET. PO SCH (08:21)
[2018-04-14] MEDS: amLODIPine BESYLATE 5 MG TABLET PO SCH (08:22)
[2018-04-14] MEDS: CARVEDILOL 12.5 MG TABLET PO SCH ×2 (08:22→17:25)
[2018-04-14] MEDS: QUEtiapine 25 MG TABLET. PO SCH ×2 (08:22→17:27)
[2018-04-14] MEDS: LACTOBACILLUS RHAMNOSUS GG 1 CAPSULE. PO SCH ×2 (08:22→19:59)
[2018-04-14] MEDS: FUROSEMIDE 40 MG TABLET PO SCH (08:22)
[2018-04-14] MEDS: MULTIVITAMIN with MINERAL TABLET. PO SCH (08:23)
[2018-04-14] MEDS: WARFARIN 4 MG TABLET. PO SCH (08:23)
[2018-04-14] MEDS: MEMANTINE 10 MG TABLET. PO SCH ×2 (08:23→19:59)
--- NOTE | 2018-04-14 09:45 | NUR ---
Behavior Intervention Response and Plan: BIRP Note: Behavior: Assumed Care of patient, patient located in Day Room at shift change. Patient exhibited the following behavior Interactive, Disorganized, Social. Brief assessment on rounds of vital signs, medication needs, lab studies, and pain. Treatment plan problems 1 & 2. Intervention: Patient assessed and the following interventions initiated safety checks 15 Minute Checks Cognitive Assessment , Head to toe Assessment , Medications. Response: After interactions and interventions patient responded in the following manner, Calm , Appropriate ,Compliant. Continue to assess behaviors and condition will continue to monitor throughout the shift as needed. Patient educated on ADL's, and hand hygiene. 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 Continue to assess patient for changes in above assessment. Monitor for medication needs, pain, and safety concerns. Hourly rounding performed to ensure safe environment.
--- NOTE | 2018-04-14 14:04 | PN ---
DATE: 04/13/2018 This late entry 04/13/2018 covers elements not covered in my initial note. SUBJECTIVE: I met with the patient in the evening. The patient slept 7-1/2 hours previous evening. He has been much more appropriate, less labile, gets a little anxious during changes in ADLs, believes he has money in his pocket that people may steal from him, but has not been aggressive. REVIEW OF SYSTEMS: No CV, , pulmonary, eye system symptoms on review. Gait unsteady, in wheelchair. MENTAL STATUS EXAM: Oriented to himself. Insight, judgment, recent and remote memory, attention, concentration, fund of knowledge poor, consistent with his diagnosis mentioned in my initial note. IMPRESSION: Major neurocognitive disorder, Alzheimer, vascular with delusion, depression, behavioral disturbance. Rest unchanged. PLAN: Continue psychotropics mentioned in my initial note. Transition to senior care later this week. MAN Beny GARDNER MD DR: DAMIEN/rose JOB#: [id number] / [id number]
--- NOTE | 2018-04-14 15:00 | NUR ---
WEEKLY THERAPEUTIC RECREATION NOTE Date of Admission: 03/29/2018 Date of AT Assessment: 03/30/2018 Goal aimed: Pt will increase his time management and recreation education. Initial goal: Pt will engage in five groups per week. Weekly progress towards goal: exceeded Group participation level: moderate to full Behaviors observed: around group more, pleasant, concerned for others, able to carry conversations and participate in activities fully Plan: no changes to goal
[2018-04-14 17:15] VITALS: BP 145/73
[2018-04-14] MEDS: PRAZOSIN 1 MG CAPSULE. PO SCH (19:59)
[2018-04-14] MEDS: ATORVASTATIN CALCIUM 20 MG TABLET PO SCH (19:59)
--- NOTE | 2018-04-14 20:54 | NUR ---
Nursing note: Assumed care of pt in dayroom. He was pleasant and interactive. Compliant with meds and assessment. No delusions noted tonight. Still c/o swelling in leg but reminded him that he needs to keep it elevated. He had snack and agreed to go to bed.
--- NOTE | 2018-04-14 20:56 | PDOC ---
Exam Note: [place] Note: Please also refer to the separate dictated note~for this date of service dictated separately.~Patient seen individually. Discussed the patient with Nursing staff reviewed the chart.~Reviewed interim history and current functioning. Reviewed vital signs,~Labs/ Radiology~and current medications noted below. Continue current treatment with the changes noted in the dictated addendum note Assessment: Vital Signs: Vital Signs Date Time Temp Pulse Resp B/P (MAP) Pulse Ox O2 Delivery O2 Flow Rate FiO2 04/14/18 19:59 80 145/73 04/14/18 17:15 97.5 19 100 04/12/18 16:25 Room Air I&O Intake and Output 04/14/18 07:00 Intake Total 1340 ml Balance 1340 ml Intake Oral 1340 ml # Voids 2 # Bowel Movements 1 Current Medications: Meds: Current Medications Acetaminophen (Tylenol) 650 mg PRN Q6HRS PRN PO PAIN / TEMP; Start 03/29/18 at 16:30; Status Cancel Multi-Ingredient Ointment (Analgesic [place]) 1 evan PRN QID PRN TP MUSCLE PAIN; Start 03/29/18 at 16:30 Al Hydroxide/Mg Hydroxide (Mylanta Plus Xs) 15 ml PRN AFTMEALHC PRN PO DYSPEPSIA; Start 03/29/18 at 16:30 Magnesium Hydroxide (Milk Of Magnesia) 2,400 mg PRN QHS PRN PO CONSTIPATION; Start 03/29/18 at 16:30 Albuterol Sulfate (Ventolin Hfa) 1 puff PRN Q6HRS PRN INH SHORTNESS OF BREATH; Start 03/29/18 at 17:00; Status UNV Atorvastatin Calcium (Lipitor) 20 mg QHS PO Last administered on 04/14/18at 19: 59; Start 03/29/18 at 21:00 Vitamin D (Vitamin D3) 50,000 unit WEEKLY PO Last administered on 04/10/18at 08: 13; Start 04/03/18 at 09:00 Cyanocobalamin (Vitamin B-12) 1,000 mcg DAILY PO Last administered on at 08:21; Start 03/30/18 at 09:00 Diclofenac Sodium (Voltaren) 1 evan PRN Q12HR PRN TP PAIN; Start 03/29/18 at 17: 00 Al Hydroxide/Mg Hydroxide (Mylanta Plus Xs) 15 ml PRN Q6HRS PRN PO DYSPEPSIA; Start 03/29/18 at 17:00; Status Cancel Multivitamins/ Calcium (Thera-M Plus) 1 tab DAILY PO Last administered on 08:23; Start 03/30/18 at 09:00 Lactobacillus Rhamnosus (Culturelle) 1 cap BID PO Last administered on 19:59; Start 03/29/18 at 21:00 Senna/Docusate Sodium (Senna Plus) 1 tab BID PO Last administered on 04/14/18 19:59; Start 03/29/18 at 21:00 Acetaminophen (Tylenol) 500 mg PRN Q4HRS PRN PO PAIN / TEMP Last administered on 04/13/18 19:34; Start 03/29/18 at 17:45 Amlodipine Besylate (Norvasc) 5 mg DAILY PO Last administered on 04/14/18 08: 22; Start 03/30/18 at 09:00 Aspirin (Aspirin Enteric Coated) 81 mg DAILY PO Last administered on 04/14/18 08:21; Start 03/30/18 at 09:00 Bisacodyl (Dulcolax Supp) 10 mg PRN DAILY PRN RI CONSTIPATION; Start 03/29/18 at 17:45 Carvedilol (Coreg) 12.5 mg BIDWMEALS PO Last administered on 03/30/18at 16:44; Start 03/30/18 at 08:00; Stop 03/30/18 at 17:57; Status DC Multivit/Ca Carb/ B Cmplx/FA/Prenat (Nephro-Vikram) 1 tab PRN DAILY PRN PO SUPPLEMENT; Start 03/30/18 at 09:00 Loperamide HCl (Imodium) 2 mg PRN Q2HR PRN PO DIARRHEA; Start 03/29/18 at 17:45 Non-Formulary Medication (Magnesium Hydroxide (Milk Of Magnesia)) 30 ml PRN QHS PRN PO CONSTIPATION; Start 03/29/18 at 17:00; Status UNV Memantine (Namenda) 10 mg BID PO Last administered on 04/14/18 19:59; Start at 21:00 Potassium Chloride (Klor-Con) 20 meq 3X/WEEK PO Last administered on 04/14/18at 08:26; Start 03/31/18 at 09:00 Artificial Tears (Artificial Tears) 2 drop PRN QID PRN OU DRY EYE; Start at 18:00 Rivastigmine (Exelon) 1 patch DAILY TD Last administered on 04/14/18at 08:21; Start 03/30/18 at 09:00 Sodium Chloride (Saline Mist Nasal) 1 evan PRN TID PRN NS NASAL CONGESTION; Start 03/29/18 at 18:00 Warfarin Sodium (Coumadin) 3 mg DAILY16 PO Last administered on 04/05/18at 17:28 ; Start 03/29/18 at 18:00; Stop 04/05/18 at 17:37; Status DC Ondansetron HCl (Zofran Odt) 4 mg PRN Q4HRS PRN PO NAUSEA/VOMITING; Start at 17:30 Albuterol Sulfate (Ventolin) 2.5 mg PRN Q6HRS PRN NEB SHORTNESS OF BREATH; Start 03/29/18 at 18:00 Warfarin Sodium (Coumadin Per Physician) 1 each PRN DAILY PRN MC SEE COMMENTS; Start 03/29/18 at 18:00 Olanzapine (ZyPREXA ZYDIS) 2.5 mg PRN Q2HR PRN PO PSYCHOSIS Last administered on 04/13/18at 21:43; Start 03/29/18 at 19:15 Cefpodoxime Proxetil (Vantin) 100 mg BID PO Last administered on 04/05/18at 19: 24; Start 03/29/18 at 21:00; Stop 04/05/18 at 23:00; Status DC Amlodipine Besylate (Norvasc) 5 mg BID PRN PO ELEVATED BP, SEE COMMENTS Last administered on 03/30/18at 15:29; Start 03/30/18 at 15:30; Stop 04/06/18 at 19:36; Status DC Carvedilol (Coreg) 12.5 mg 1X ONCE PO Last administered on 03/30/18at 18:05; Start 03/30/18 at 18:00; Stop 03/30/18 at 18:01; Status DC Carvedilol (Coreg) 25 mg BIDWMEALS PO Last administered on 04/14/18at 17:25; Start 03/31/18 at 08:00 Quetiapine Fumarate (SEROquel) 12.5 mg 1X ONCE PO Last administered on at 18:21; Start 03/31/18 at 18:15; Stop 03/31/18 at 18:18; Status DC Quetiapine Fumarate (SEROquel) 12.5 mg BID@0900,1700 PO Last administered on at 17:27; Start 04/01/18 at 09:00 Hydroxyzine HCl (Atarax) 25 mg PRN Q2HR PRN PO PSYCHOSIS Last administered on at 21:43; Start 04/03/18 at 23:15 Warfarin Sodium (Coumadin) 4 mg DAILY PO Last administered on 04/14/18at 08:23; Start 04/06/18 at 16:00 Warfarin Sodium (Coumadin) 1 mg 1X ONCE PO Last administered on 04/05/18at 17: 45; Start 04/05/18 at 17:45; Stop 04/05/18 at 17:46; Status DC Prazosin HCl (Minipress) 1 mg HS PO Last administered on 04/05/18at 19:34; Start 04/05/18 at 21:00; Stop 04/06/18 at 18:03; Status DC Prazosin HCl (Minipress) 2 mg HS PO Last administered on 04/14/18at 19:59; Start 04/06/18 at 21:00 Furosemide (Lasix) 40 mg DAILY PO Last administered on 04/14/18at 08:22; Start 04/12/18 at 09:00 Potassium Chloride (Klor-Con) 20 meq DAILYWBKFT PO Last administered on at 08:21; Start 04/12/18 at 08:00 Active Scripts Active Coumadin (Warfarin Sodium) 3 Mg Tablet 1 Tab PO DAILY Coreg (Carvedilol) 12.5 Mg Tablet 1 Tab PO BID Reported Vitamin D3 (Cholecalciferol (Vitamin D3)) 50,000 Unit Capsule 50,000 Unit PO WEEKLY Vitamin B-12 (Cyanocobalamin (Vitamin B-12)) 1,000 Mcg Tablet 1,000 Mcg PO DAILY Probiotic (Saccharomyces Boulardii) 250 Mg Capsule 250 Mg PO DAILY Norvasc (Amlodipine Besylate) 5 Mg Tablet 5 Mg PO DAILY Nephro-Vikram Tablet (Folic Acid/Vitamin B Comp W-C) 0.8 Mg Tablet 1 Tab PO DAILY PRN EXELON 9.5mg/24hr (Rivastigmine) 1 Each Patch.td24 1 Patch TD DAILY Saline Nasal [place] (Sodium Chloride) 30 Ml [place] 30 Ml NS TID Mag-Al Plus Xs Suspension (Mag Hydrox/Al Hydrox/Simeth) 30 Ml Oral.susp 15 Ml PO PRN Q6HRS PRN Potassium Chloride Oral Liquid (Potassium Chloride) 20 Meq/15 Ml Liquid 20 Meq PO 3X/WEEK Administer on Thursday, Thursday and Thursday Thera-M Tablet (Multivits,Ca,Minerals/Iron/Fa) 1 Each Tablet 1 Tab PO DAILY Namenda (Memantine Hcl) 5 Mg Tablet 10 Mg PO BID Voltaren (Diclofenac Sodium) 100 Gm Gel..gram. 1 Evan TP PRN Q12HR PRN Systane 0.3-0.4% Eye Drops (Propylene Glycol/Peg 400) 15 Ml Drops 2 Drop OU PRN QID PRN Senokot-S Tablet (Sennosides/Docusate Sodium) 1 Each Tablet 1 Tab PO BID Milk Of Magnesia (Magnesium Hydroxide) 2,400 Mg/10 Ml Oral.susp 30 Ml PO PRN QHS PRN Imodium A-D (Loperamide Hcl) 1 Mg/7.5 Ml Liquid 2 Mg PO PRN Q2HR PRN Max dose of 16mg in 24 hours Dulcolax (Bisacodyl) 10 Mg Supp.rect 10 Mg RC PRN DAILY PRN Atorvastatin Calcium 20 Mg Tablet 20 Mg PO QHS Aspir-Low (Aspirin) 81 Mg Tablet.dr 81 Mg PO DAILY Proair Hfa Inhaler (Albuterol Sulfate) 8.5 Gm Hfa.aer.ad 1 Puff INH PRN Q6HRS PRN Acetaminophen 500 Mg Tablet 500 Mg PO PRN Q4HRS PRN NTE 3000mg APAP in 24 hours from all sources I have reviewed the current psychotropics carefully including drug interactions. Risk benefit ratio favors no change other than as noted in my dictated progress note. Diagnosis: Problems: (1) Agitation (2) Acute ischemic stroke (3) Syncope (4) Hemiplegia affecting left nondominant side (5) TIA (transient ischemic attack) (6) Hypertension (7) Anxiety disorder (8) Dementia, vascular, with delusions (9) Dementia, vascular, with depression (10) Impulse control disorder (11) Acute kidney injury DEAN GARDNER MD Apr 14, 2018 20:56
[2018-04-15 05:58] VITALS: BP 120/72
[2018-04-15] MEDS: WARFARIN 4 MG TABLET. PO SCH (08:00)
[2018-04-15] MEDS: MULTIVITAMIN with MINERAL TABLET. PO SCH (08:00)
[2018-04-15] MEDS: LACTOBACILLUS RHAMNOSUS GG 1 CAPSULE. PO SCH ×2 (08:00→20:41)
[2018-04-15] MEDS: POTASSIUM CHLORIDE 20 MEQ TABLET.ER. PO SCH (08:01)
[2018-04-15] MEDS: QUEtiapine 25 MG TABLET. PO SCH ×2 (08:01→17:07)
[2018-04-15] MEDS: FUROSEMIDE 40 MG TABLET PO SCH (08:01)
[2018-04-15] MEDS: MEMANTINE 10 MG TABLET. PO SCH ×2 (08:01→20:41)
[2018-04-15] MEDS: CYANOCOBALAMIN (VITAMIN B-12) 1,000 MCG TABLET. PO SCH (08:01)
[2018-04-15] MEDS: ASPIRIN ENTERIC COATED 81 MG TABLET.DR. PO SCH (08:02)
[2018-04-15] MEDS: CARVEDILOL 12.5 MG TABLET PO SCH ×2 (08:02→17:07)
[2018-04-15] MEDS: SENNOSIDES/DOCUSATE 8.6/50MG TABLET. PO SCH ×2 (08:02→20:41)
[2018-04-15] MEDS: amLODIPine BESYLATE 5 MG TABLET PO SCH (08:03)
[2018-04-15] MEDS: RIVASTIGMINE 9.5MG PATCH. TD SCH (08:04)
--- NOTE | 2018-04-15 08:45 | NUR ---
Behavior Intervention Response and Plan: BIRP Note: Behavior: Assumed Care of patient, patient located in Dining Room at shift change. Patient exhibited the following behavior Restless, Disorganized, Compulsive. Brief assessment on rounds of vital signs, medication needs, lab studies, and pain. Treatment plan problems 1 & 2. Intervention: Patient assessed and the following interventions initiated safety checks 15 Minute Checks Cognitive Assessment , Head to toe Assessment , Medications. Response: After interactions and interventions patient responded in the following manner, Calm , Appropriate ,Compliant. Continue to assess behaviors and condition will continue to monitor throughout the shift as needed. Patient educated on ADL's, and hand hygiene. Plan: Continue to monitor Master Treatment Plan for patient's progress toward short term goals of Decreased Agitation, No harm To self/ others, correction goals to return to previous living setting vs placement. Continue to assess patient for changes in above assessment. Monitor for medication needs, pain, and safety concerns. Hourly rounding performed to ensure safe environment.
[2018-04-15 09:08] LABS: BASO % 1 % (0-3); EOS # 0.3 x10^3/uL (0.0-0.7); EOS % 6 % (0-3); HEMATOCRIT 36.1 % (39.0-53.0); HEMOGLOBIN 11.8 g/dL (13.0-17.5); LYMPH # 1.8 x10^3/uL (1.0-4.8); LYMPH % 34 % (24-48); MEAN CORPUSCULAR HEMOGLOBIN 31 pg (25-35); MEAN CORPUSCULAR HGB CONC 33 g/dL (31-37); MEAN CORPUSCULAR VOLUME 94 fL (79-100); MONO # 0.4 x10^3/uL (0.0-1.1); MONO % 7 % (0-9); NEUT # 2.7 x10^3uL (1.8-7.7); NEUT % 52 % (31-73); PLATELET COUNT 174 x10^3/uL (140-400); RED BLOOD COUNT 3.83 x10^6/uL (4.30-5.70); RED CELL DISTRIBUTION WIDTH 14.6 % (11.5-14.5); WHITE BLOOD COUNT 5.2 x10^3/uL (4.0-11.0)
[2018-04-15 09:24] LABS: ALBUMIN 3.1 g/dL (3.4-5.0); ALBUMIN/GLOBULIN RATIO 0.8 (1.0-1.7); CREATININE 1.3 mg/dL (0.7-1.3); GFR 66.4; TOTAL BILIRUBIN 0.4 mg/dL (0.2-1.0)
[2018-04-15 09:48] LABS: POTASSIUM 4.8 mmol/L (3.5-5.1)
--- NOTE | 2018-04-15 13:24 | NUR ---
[facility] Social Work Discharge Planning Form Patient Name HUY TEAGUE Admit Date: 03/29/18 DISCHARGE PLAN Discharge Destination: return to [facility] Transportation: Facility to package pick up 04/16/18 @ 1300 DISCHARGE TO FACILITY Facility: [facility] Address: [place] [address] Contact Name: PCP: at facility w/in 7-10 days of dc Psychiatrist: at facility w/in 7-10 days of dc
[2018-04-15 16:12] VITALS: BP 160/87
[2018-04-15] MEDS: PRAZOSIN 1 MG CAPSULE. PO SCH (20:41)
[2018-04-15] MEDS: ATORVASTATIN CALCIUM 20 MG TABLET PO SCH (20:41)
--- NOTE | 2018-04-15 20:55 | PDOC ---
Exam Note: [place] Note: Please also refer to the separate dictated note~for this date of service dictated separately.~Patient seen individually. Discussed the patient with Nursing staff reviewed the chart.~Reviewed interim history and current functioning. Reviewed vital signs,~Labs/ Radiology~and current medications noted below. Continue current treatment with the changes noted in the dictated addendum note Assessment: Vital Signs: Vital Signs Date Time Temp Pulse Resp B/P (MAP) Pulse Ox O2 Delivery O2 Flow Rate FiO2 04/15/18 20:41 72 160/87 04/15/18 16:12 98.5 18 97 04/12/18 16:25 Room Air I&O Intake and Output 04/15/18 07:00 Intake Total 1720 ml Balance 1720 ml Intake Oral 1720 ml # Bowel Movements 1 Labs: Laboratory Tests Test 04/15/18 08:57 White Blood Count 5.2 x10^3/uL (4.0-11.0) Red Blood Count 3.83 x10^6/uL (4.30-5.70) L Hemoglobin 11.8 g/dL (13.0-17.5) L Hematocrit 36.1 % (39.0-53.0) L Mean Corpuscular Volume 94 fL (79-100) Mean Corpuscular Hemoglobin 31 pg (25-35) Mean Corpuscular Hemoglobin Concent 33 g/dL (31-37) Red Cell Distribution Width 14.6 % (11.5-14.5) H Platelet Count 174 x10^3/uL (140-400) Neutrophils (%) (Auto) 52 % (31-73) Lymphocytes (%) (Auto) 34 % (24-48) Monocytes (%) (Auto) 7 % (0-9) Eosinophils (%) (Auto) 6 % (0-3) H Basophils (%) (Auto) 1 % (0-3) Neutrophils # (Auto) 2.7 x10^3uL (1.8-7.7) Lymphocytes # (Auto) 1.8 x10^3/uL (1.0-4.8) Monocytes # (Auto) 0.4 x10^3/uL (0.0-1.1) Eosinophils # (Auto) 0.3 x10^3/uL (0.0-0.7) Basophils # (Auto) 0.0 x10^3/uL (0.0-0.2) Sodium Level 140 mmol/L (136-145) Potassium Level 4.8 mmol/L (3.5-5.1) Chloride Level 105 mmol/L (98-107) Carbon Dioxide Level 27 mmol/L (21-32) Anion Gap 8 (6-14) Blood Urea Nitrogen 23 mg/dL (8-26) Creatinine 1.3 mg/dL (0.7-1.3) Estimated GFR (Cockcroft-Gault) 66.4 BUN/Creatinine Ratio 18 (6-20) Glucose Level 175 mg/dL (70-99) H Calcium Level 9.0 mg/dL (8.5-10.1) Total Bilirubin 0.4 mg/dL (0.2-1.0) Aspartate Amino Transferase (AST) 34 U/L (15-37) Alanine Aminotransferase (ALT) 32 U/L (16-63) Alkaline Phosphatase 106 U/L (46-116) Total Protein 7.0 g/dL (6.4-8.2) Albumin 3.1 g/dL (3.4-5.0) L Albumin/Globulin Ratio 0.8 (1.0-1.7) L Current Medications: Meds: Current Medications Acetaminophen (Tylenol) 650 mg PRN Q6HRS PRN PO PAIN / TEMP; Start 03/29/18 at 16:30; Status Cancel Multi-Ingredient Ointment (Analgesic [place]) 1 evan PRN QID PRN TP MUSCLE PAIN; Start 03/29/18 at 16:30 Al Hydroxide/Mg Hydroxide (Mylanta Plus Xs) 15 ml PRN AFTMEALHC PRN PO DYSPEPSIA; Start 03/29/18 at 16:30 Magnesium Hydroxide (Milk Of Magnesia) 2,400 mg PRN QHS PRN PO CONSTIPATION; Start 03/29/18 at 16:30 Albuterol Sulfate (Ventolin Hfa) 1 puff PRN Q6HRS PRN INH SHORTNESS OF BREATH; Start 03/29/18 at 17:00; Status UNV Atorvastatin Calcium (Lipitor) 20 mg QHS PO Last administered on 04/15/18at 20: 41; Start 03/29/18 at 21:00 Vitamin D (Vitamin D3) 50,000 unit WEEKLY PO Last administered on 04/10/18at 08: 13; Start 04/03/18 at 09:00 Cyanocobalamin (Vitamin B-12) 1,000 mcg DAILY PO Last administered on at 08:01; Start 03/30/18 at 09:00 Diclofenac Sodium (Voltaren) 1 evan PRN Q12HR PRN TP PAIN; Start 03/29/18 at 17: 00 Al Hydroxide/Mg Hydroxide (Mylanta Plus Xs) 15 ml PRN Q6HRS PRN PO DYSPEPSIA; Start 03/29/18 at 17:00; Status Cancel Multivitamins/ Calcium (Thera-M Plus) 1 tab DAILY PO Last administered on 08:00; Start 03/30/18 at 09:00 Lactobacillus Rhamnosus (Culturelle) 1 cap BID PO Last administered on 20:41; Start 03/29/18 at 21:00 Senna/Docusate Sodium (Senna Plus) 1 tab BID PO Last administered on 04/15/18at 20:41; Start 03/29/18 at 21:00 Acetaminophen (Tylenol) 500 mg PRN Q4HRS PRN PO PAIN / TEMP Last administered on 04/13/18 19:34; Start 03/29/18 at 17:45 Amlodipine Besylate (Norvasc) 5 mg DAILY PO Last administered on 04/15/18 08: 03; Start 03/30/18 at 09:00 Aspirin (Aspirin Enteric Coated) 81 mg DAILY PO Last administered on 04/15/18at 08:02; Start 03/30/18 at 09:00 Bisacodyl (Dulcolax Supp) 10 mg PRN DAILY PRN [place] CONSTIPATION; Start 03/29/18 at 17:45 Carvedilol (Coreg) 12.5 mg BIDWMEALS PO Last administered on 03/30/18 16:44; Start 03/30/18 at 08:00; Stop 03/30/18 at 17:57; Status DC Multivit/Ca Carb/ B Cmplx/FA/Prenat (Nephro-Vikram) 1 tab PRN DAILY PRN PO SUPPLEMENT; Start 03/30/18 at 09:00 Loperamide HCl (Imodium) 2 mg PRN Q2HR PRN PO DIARRHEA; Start 03/29/18 at 17:45 Non-Formulary Medication (Magnesium Hydroxide (Milk Of Magnesia)) 30 ml PRN QHS PRN PO CONSTIPATION; Start 03/29/18 at 17:00; Status UNV Memantine (Namenda) 10 mg BID PO Last administered on 04/15/18at 20:41; Start at 21:00 Potassium Chloride (Klor-Con) 20 meq 3X/WEEK PO Last administered on 04/14/18at 08:26; Start 03/31/18 at 09:00 Artificial Tears (Artificial Tears) 2 drop PRN QID PRN OU DRY EYE; Start at 18:00 Rivastigmine (Exelon) 1 patch DAILY TD Last administered on 04/15/18at 08:04; Start 03/30/18 at 09:00 Sodium Chloride (Saline Mist Nasal) 1 evan PRN TID PRN NS NASAL CONGESTION; Start 03/29/18 at 18:00 Warfarin Sodium (Coumadin) 3 mg DAILY16 PO Last administered on 04/05/18at 17:28 ; Start 03/29/18 at 18:00; Stop 04/05/18 at 17:37; Status DC Ondansetron HCl (Zofran Odt) 4 mg PRN Q4HRS PRN PO NAUSEA/VOMITING; Start at 17:30 Albuterol Sulfate (Ventolin) 2.5 mg PRN Q6HRS PRN NEB SHORTNESS OF BREATH; Start 03/29/18 at 18:00 Warfarin Sodium (Coumadin Per Physician) 1 each PRN DAILY PRN MC SEE COMMENTS; Start 03/29/18 at 18:00 Olanzapine (ZyPREXA ZYDIS) 2.5 mg PRN Q2HR PRN PO PSYCHOSIS Last administered on 04/13/18at 21:43; Start 03/29/18 at 19:15 Cefpodoxime Proxetil (Vantin) 100 mg BID PO Last administered on 04/05/18at 19: 24; Start 03/29/18 at 21:00; Stop 04/05/18 at 23:00; Status DC Amlodipine Besylate (Norvasc) 5 mg BID PRN PO ELEVATED BP, SEE COMMENTS Last administered on 03/30/18at 15:29; Start 03/30/18 at 15:30; Stop 04/06/18 at 19:36; Status DC Carvedilol (Coreg) 12.5 mg 1X ONCE PO Last administered on 03/30/18at 18:05; Start 03/30/18 at 18:00; Stop 03/30/18 at 18:01; Status DC Carvedilol (Coreg) 25 mg BIDWMEALS PO Last administered on 04/15/18at 17:07; Start 03/31/18 at 08:00 Quetiapine Fumarate (SEROquel) 12.5 mg 1X ONCE PO Last administered on at 18:21; Start 03/31/18 at 18:15; Stop 03/31/18 at 18:18; Status DC Quetiapine Fumarate (SEROquel) 12.5 mg BID@0900,1700 PO Last administered on at 17:07; Start 04/01/18 at 09:00 Hydroxyzine HCl (Atarax) 25 mg PRN Q2HR PRN PO PSYCHOSIS Last administered on at 21:43; Start 04/03/18 at 23:15 Warfarin Sodium (Coumadin) 4 mg DAILY PO Last administered on 04/15/18at 08:00; Start 04/06/18 at 16:00 Warfarin Sodium (Coumadin) 1 mg 1X ONCE PO Last administered on 04/05/18at 17: 45; Start 04/05/18 at 17:45; Stop 04/05/18 at 17:46; Status DC Prazosin HCl (Minipress) 1 mg HS PO Last administered on 04/05/18at 19:34; Start 04/05/18 at 21:00; Stop 04/06/18 at 18:03; Status DC Prazosin HCl (Minipress) 2 mg HS PO Last administered on 04/15/18at 20:41; Start 04/06/18 at 21:00 Furosemide (Lasix) 40 mg DAILY PO Last administered on 04/15/18at 08:01; Start 04/12/18 at 09:00 Potassium Chloride (Klor-Con) 20 meq DAILYWBKFT PO Last administered on at 08:01; Start 04/12/18 at 08:00 Active Scripts Active Coumadin (Warfarin Sodium) 3 Mg Tablet 1 Tab PO DAILY Coreg (Carvedilol) 12.5 Mg Tablet 1 Tab PO BID Reported Vitamin D3 (Cholecalciferol (Vitamin D3)) 50,000 Unit Capsule 50,000 Unit PO WEEKLY Vitamin B-12 (Cyanocobalamin (Vitamin B-12)) 1,000 Mcg Tablet 1,000 Mcg PO DAILY Probiotic (Saccharomyces Boulardii) 250 Mg Capsule 250 Mg PO DAILY Norvasc (Amlodipine Besylate) 5 Mg Tablet 5 Mg PO DAILY Nephro-Vikram Tablet (Folic Acid/Vitamin B Comp W-C) 0.8 Mg Tablet 1 Tab PO DAILY PRN EXELON 9.5mg/24hr (Rivastigmine) 1 Each Patch.td24 1 Patch TD DAILY Saline Nasal [place] (Sodium Chloride) 30 Ml [place] 30 Ml NS TID Mag-Al Plus Xs Suspension (Mag Hydrox/Al Hydrox/Simeth) 30 Ml Oral.susp 15 Ml PO PRN Q6HRS PRN Potassium Chloride Oral Liquid (Potassium Chloride) 20 Meq/15 Ml Liquid 20 Meq PO 3X/WEEK Administer on Thursday, Thursday and Thursday Thera-M Tablet (Multivits,Ca,Minerals/Iron/Fa) 1 Each Tablet 1 Tab PO DAILY Namenda (Memantine Hcl) 5 Mg Tablet 10 Mg PO BID Voltaren (Diclofenac Sodium) 100 Gm Gel..gram. 1 Evan TP PRN Q12HR PRN Systane 0.3-0.4% Eye Drops (Propylene Glycol/Peg 400) 15 Ml Drops 2 Drop OU PRN QID PRN Senokot-S Tablet (Sennosides/Docusate Sodium) 1 Each Tablet 1 Tab PO BID Milk Of Magnesia (Magnesium Hydroxide) 2,400 Mg/10 Ml Oral.susp 30 Ml PO PRN QHS PRN Imodium A-D (Loperamide Hcl) 1 Mg/7.5 Ml Liquid 2 Mg PO PRN Q2HR PRN Max dose of 16mg in 24 hours Dulcolax (Bisacodyl) 10 Mg Supp.rect 10 Mg RC PRN DAILY PRN Atorvastatin Calcium 20 Mg Tablet 20 Mg PO QHS Aspir-Low (Aspirin) 81 Mg Tablet.dr 81 Mg PO DAILY Proair Hfa Inhaler (Albuterol Sulfate) 8.5 Gm Hfa.aer.ad 1 Puff INH PRN Q6HRS PRN Acetaminophen 500 Mg Tablet 500 Mg PO PRN Q4HRS PRN NTE 3000mg APAP in 24 hours from all sources I have reviewed the current psychotropics carefully including drug interactions. Risk benefit ratio favors no change other than as noted in my dictated progress note. Diagnosis: Problems: (1) Agitation (2) Acute ischemic stroke (3) Syncope (4) Hemiplegia affecting left nondominant side (5) TIA (transient ischemic attack) (6) Hypertension (7) Anxiety disorder (8) Dementia, vascular, with delusions (9) Dementia, vascular, with depression (10) Impulse control disorder (11) Acute kidney injury DEAN GARDNER MD Apr 15, 2018 20:55
--- NOTE | 2018-04-15 23:29 | NUR ---
Behavior Intervention Response and Plan: BIRP Note: Behavior: Assumed Care of patient, patient located in Day Room at shift change. Patient exhibited the following behavior Interactive, Social, Calm. Brief assessment on rounds of vital signs, medication needs, lab studies, and pain. Treatment plan problems 1 and 2. Intervention: Patient assessed and the following interventions initiated safety checks 15 Minute Checks Cognitive Assessment , Head to toe Assessment , Medications. Response: After interactions and interventions patient responded in the following manner, Calm , Compliant ,Cooperative. Continue to assess behaviors and condition will continue to monitor throughout the shift as needed. Patient educated on ADL's, and hand hygiene. Plan: Continue to monitor Master Treatment Plan for patient's progress toward short term goals of Decreased Agitation, Improved Mood, fci goals to return to previous living setting vs placement. Continue to assess patient for changes in above assessment. Monitor for medication needs, pain, and safety concerns. Hourly rounding performed to ensure safe environment.
[2018-04-16] MEDS ORDERED: CARV25TA2 PO (00:19)
[2018-04-16] MEDS ORDERED: FURO40TA4 PO (00:19)
[2018-04-16] MEDS ORDERED: OLAN5TAB5 PO (00:20)
[2018-04-16] MEDS ORDERED: ONDA4TAB12 PO (00:20)
[2018-04-16] MEDS ORDERED: METH29OI TP (00:20)
[2018-04-16] MEDS ORDERED: POTA20TA4 PO (00:21)
[2018-04-16] MEDS ORDERED: PRAZ2CAP2 PO (00:22)
[2018-04-16] MEDS ORDERED: QUET25TA5 PO (00:23)
[2018-04-16] MEDS ORDERED: WARF4TAB64 PO (00:23)
[2018-04-16] MEDS ORDERED: HYDR25TA PO (00:23)
[2018-04-16 05:56] VITALS: BP 143/73
[2018-04-16] MEDS: RIVASTIGMINE 9.5MG PATCH. TD SCH (07:44)
[2018-04-16] MEDS: MULTIVITAMIN with MINERAL TABLET. PO SCH (07:45)
[2018-04-16] MEDS: POTASSIUM CHLORIDE 20 MEQ TABLET.ER. PO SCH ×2 (07:45→07:47)
[2018-04-16] MEDS: MEMANTINE 10 MG TABLET. PO SCH ×2 (07:45→19:48)
[2018-04-16] MEDS: WARFARIN 4 MG TABLET. PO SCH (07:45)
[2018-04-16] MEDS: ASPIRIN ENTERIC COATED 81 MG TABLET.DR. PO SCH (07:45)
[2018-04-16] MEDS: FUROSEMIDE 40 MG TABLET PO SCH (07:45)
[2018-04-16] MEDS: LACTOBACILLUS RHAMNOSUS GG 1 CAPSULE. PO SCH ×2 (07:45→19:48)
[2018-04-16] MEDS: amLODIPine BESYLATE 5 MG TABLET PO SCH (07:46)
[2018-04-16] MEDS: CYANOCOBALAMIN (VITAMIN B-12) 1,000 MCG TABLET. PO SCH (07:46)
[2018-04-16] MEDS: SENNOSIDES/DOCUSATE 8.6/50MG TABLET. PO SCH ×2 (07:46→19:48)
[2018-04-16] MEDS: QUEtiapine 25 MG TABLET. PO SCH ×2 (07:46→17:50)
[2018-04-16] MEDS: CARVEDILOL 12.5 MG TABLET PO SCH ×2 (07:46→17:50)
--- NOTE | 2018-04-16 11:13 | NUR ---
Behavior Intervention Response and Plan: BIRP Note: Behavior: Assumed Care of patient, patient located in Dining Room at shift change. Patient exhibited the following behavior Disorganized, Demanding, Attention Seeking. Brief assessment on rounds of vital signs, medication needs, lab studies, and pain. Treatment plan problems . Intervention: Patient assessed and the following interventions initiated safety checks 15 Minute Checks Cognitive Assessment , Head to toe Assessment , Medications. Response: After interactions and interventions patient responded in the following manner, Attention Seeking , Demanding ,Non Compliant. Continue to assess behaviors and condition will continue to monitor throughout the shift as needed. Patient educated on ADL's, and hand hygiene. Plan: Continue to monitor Master Treatment Plan for patient's progress toward short term goals of Decreased Agitation, Decreased Aggression, fci goals to return to previous living setting vs placement. Continue to assess patient for changes in above assessment. Monitor for medication needs, pain, and safety concerns. Hourly rounding performed to ensure safe environment.
[2018-04-16 16:18] VITALS: BP 142/80
--- NOTE | 2018-04-16 16:53 | NUR ---
pt yelled out half of morning. did not calm with PRN medication. Fell asleep at lunch. got up shortly after and ate meal and took meds. DC canceled per Dr Crystal .
--- NOTE | 2018-04-16 18:21 | PN ---
DATE: 04/14/2018 This is a late entry 04/14/2018 covers the elements not covered in my initial note 04/14/2018. SUBJECTIVE:. The patient was staffed at a treatment team meeting, then I met with him individually in the evening. He has been confused, otherwise calm, compliant with medications. Sleeping about 6-1/2 hours. Appetite 100%. REVIEW OF SYSTEMS: Ambulation impaired, in wheelchair. No CV, , pulmonary, eye system symptoms on review. Reliability poor. MENTAL STATUS EXAM: Oriented to himself. Insight, judgment, recent and remote memory, attention, concentration, fund of knowledge poor, consistent with his diagnosis mentioned in my initial note. PLAN: Continue psychotropics from my initial note. Adjust further as clinically indicated. Transition to intermediate end of this week. MAN Beny GARDNER MD DR: DAMIEN/rose JOB#: [id number] / [id number]
--- NOTE | 2018-04-16 18:46 | PN ---
DATE: 04/15/2018 This late entry 04/15/2018 covers elements not covered in my initial note. SUBJECTIVE: I met with the patient in the evening. The patient has been little labile at times, calling out wanting a $600, obsessed about this. REVIEW OF SYSTEMS: Ambulation impaired, in wheelchair. No CV, , pulmonary, eye system symptoms on review. MENTAL STATUS EXAM: Oriented to himself. Insight, judgment, recent and remote memory, attention, concentration, fund of knowledge poor, consistent with his diagnosis mentioned in my initial note. PLAN: Continue psychotropics from initial note possibly transition to long term 04/16/2018. MAN Beny GARDNER MD DR: DAMIEN/rose JOB#: [id number] / [id number]
[2018-04-16] MEDS: PRAZOSIN 1 MG CAPSULE. PO SCH (19:48)
[2018-04-16] MEDS: ATORVASTATIN CALCIUM 20 MG TABLET PO SCH (19:49)
[2018-04-16] MEDS: ACETAMINOPHEN 500 MG TABLET PO PRN (20:30)
--- NOTE | 2018-04-16 20:55 | PDOC ---
Exam Note: [place] Note: Please also refer to the separate dictated note~for this date of service dictated separately.~Patient seen individually. Discussed the patient with Nursing staff reviewed the chart.~Reviewed interim history and current functioning. Reviewed vital signs,~Labs/ Radiology~and current medications noted below. Continue current treatment with the changes noted in the dictated addendum note Assessment: Vital Signs: Vital Signs Date Time Temp Pulse Resp B/P (MAP) Pulse Ox O2 Delivery O2 Flow Rate FiO2 04/16/18 19:48 81 142/80 04/16/18 16:18 97.5 16 99 04/12/18 16:25 Room Air I&O Intake and Output 04/16/18 07:00 Intake Total 1316 ml Balance 1316 ml Intake Oral 1316 ml # Bowel Movements 1 Current Medications: Meds: Current Medications Acetaminophen (Tylenol) 650 mg PRN Q6HRS PRN PO PAIN / TEMP; Start 03/29/18 at 16:30; Status Cancel Multi-Ingredient Ointment (Analgesic [place]) 1 evan PRN QID PRN TP MUSCLE PAIN; Start 03/29/18 at 16:30 Al Hydroxide/Mg Hydroxide (Mylanta Plus Xs) 15 ml PRN AFTMEALHC PRN PO DYSPEPSIA; Start 03/29/18 at 16:30 Magnesium Hydroxide (Milk Of Magnesia) 2,400 mg PRN QHS PRN PO CONSTIPATION; Start 03/29/18 at 16:30 Albuterol Sulfate (Ventolin Hfa) 1 puff PRN Q6HRS PRN INH SHORTNESS OF BREATH; Start 03/29/18 at 17:00; Status UNV Atorvastatin Calcium (Lipitor) 20 mg QHS PO Last administered on 04/16/18at 19: 49; Start 03/29/18 at 21:00 Vitamin D (Vitamin D3) 50,000 unit WEEKLY PO Last administered on 04/10/18at 08: 13; Start 04/03/18 at 09:00 Cyanocobalamin (Vitamin B-12) 1,000 mcg DAILY PO Last administered on at 07:46; Start 03/30/18 at 09:00 Diclofenac Sodium (Voltaren) 1 evan PRN Q12HR PRN TP PAIN; Start 03/29/18 at 17: 00 Al Hydroxide/Mg Hydroxide (Mylanta Plus Xs) 15 ml PRN Q6HRS PRN PO DYSPEPSIA; Start 03/29/18 at 17:00; Status Cancel Multivitamins/ Calcium (Thera-M Plus) 1 tab DAILY PO Last administered on 07:45; Start 03/30/18 at 09:00 Lactobacillus Rhamnosus (Culturelle) 1 cap BID PO Last administered on 19:48; Start 03/29/18 at 21:00 Senna/Docusate Sodium (Senna Plus) 1 tab BID PO Last administered on 04/16/18 19:48; Start 03/29/18 at 21:00 Acetaminophen (Tylenol) 500 mg PRN Q4HRS PRN PO PAIN / TEMP Last administered on 04/16/18 20:30; Start 03/29/18 at 17:45 Amlodipine Besylate (Norvasc) 5 mg DAILY PO Last administered on 04/16/18 07: 46; Start 03/30/18 at 09:00 Aspirin (Aspirin Enteric Coated) 81 mg DAILY PO Last administered on 04/16/18 07:45; Start 03/30/18 at 09:00 Bisacodyl (Dulcolax Supp) 10 mg PRN DAILY PRN [place] CONSTIPATION; Start 03/29/18 at 17:45 Carvedilol (Coreg) 12.5 mg BIDWMEALS PO Last administered on 03/30/18 16:44; Start 03/30/18 at 08:00; Stop 03/30/18 at 17:57; Status DC Multivit/Ca Carb/ B Cmplx/FA/Prenat (Nephro-Vikram) 1 tab PRN DAILY PRN PO SUPPLEMENT; Start 03/30/18 at 09:00 Loperamide HCl (Imodium) 2 mg PRN Q2HR PRN PO DIARRHEA; Start 03/29/18 at 17:45 Non-Formulary Medication (Magnesium Hydroxide (Milk Of Magnesia)) 30 ml PRN QHS PRN PO CONSTIPATION; Start 03/29/18 at 17:00; Status UNV Memantine (Namenda) 10 mg BID PO Last administered on 04/16/18 19:48; Start at 21:00 Potassium Chloride (Klor-Con) 20 meq 3X/WEEK PO Last administered on 6/22/18at 07:47; Start 03/31/18 at 09:00 Artificial Tears (Artificial Tears) 2 drop PRN QID PRN OU DRY EYE; Start at 18:00 Rivastigmine (Exelon) 1 patch DAILY TD Last administered on 04/16/18at 07:44; Start 03/30/18 at 09:00 Sodium Chloride (Saline Mist Nasal) 1 evan PRN TID PRN NS NASAL CONGESTION; Start 03/29/18 at 18:00 Warfarin Sodium (Coumadin) 3 mg DAILY16 PO Last administered on 04/05/18at 17:28 ; Start 03/29/18 at 18:00; Stop 04/05/18 at 17:37; Status DC Ondansetron HCl (Zofran Odt) 4 mg PRN Q4HRS PRN PO NAUSEA/VOMITING; Start at 17:30 Albuterol Sulfate (Ventolin) 2.5 mg PRN Q6HRS PRN NEB SHORTNESS OF BREATH; Start 03/29/18 at 18:00 Warfarin Sodium (Coumadin Per Physician) 1 each PRN DAILY PRN MC SEE COMMENTS; Start 03/29/18 at 18:00 Olanzapine (ZyPREXA ZYDIS) 2.5 mg PRN Q2HR PRN PO PSYCHOSIS Last administered on 04/16/18at 08:03; Start 03/29/18 at 19:15 Cefpodoxime Proxetil (Vantin) 100 mg BID PO Last administered on 04/05/18at 19: 24; Start 03/29/18 at 21:00; Stop 04/05/18 at 23:00; Status DC Amlodipine Besylate (Norvasc) 5 mg BID PRN PO ELEVATED BP, SEE COMMENTS Last administered on 03/30/18at 15:29; Start 03/30/18 at 15:30; Stop 04/06/18 at 19:36; Status DC Carvedilol (Coreg) 12.5 mg 1X ONCE PO Last administered on 03/30/18at 18:05; Start 03/30/18 at 18:00; Stop 03/30/18 at 18:01; Status DC Carvedilol (Coreg) 25 mg BIDWMEALS PO Last administered on 04/16/18at 17:50; Start 03/31/18 at 08:00 Quetiapine Fumarate (SEROquel) 12.5 mg 1X ONCE PO Last administered on at 18:21; Start 03/31/18 at 18:15; Stop 03/31/18 at 18:18; Status DC Quetiapine Fumarate (SEROquel) 12.5 mg BID@0900,1700 PO Last administered on at 17:50; Start 04/01/18 at 09:00 Hydroxyzine HCl (Atarax) 25 mg PRN Q2HR PRN PO PSYCHOSIS Last administered on at 21:43; Start 04/03/18 at 23:15 Warfarin Sodium (Coumadin) 4 mg DAILY PO Last administered on 04/16/18at 07:45; Start 04/06/18 at 16:00 Warfarin Sodium (Coumadin) 1 mg 1X ONCE PO Last administered on 04/05/18at 17: 45; Start 04/05/18 at 17:45; Stop 04/05/18 at 17:46; Status DC Prazosin HCl (Minipress) 1 mg HS PO Last administered on 04/05/18at 19:34; Start 04/05/18 at 21:00; Stop 04/06/18 at 18:03; Status DC Prazosin HCl (Minipress) 2 mg HS PO Last administered on 04/16/18at 19:48; Start 04/06/18 at 21:00 Furosemide (Lasix) 40 mg DAILY PO Last administered on 04/16/18at 07:45; Start 04/12/18 at 09:00 Potassium Chloride (Klor-Con) 20 meq DAILYWBKFT PO Last administered on at 07:45; Start 04/12/18 at 08:00 Active Scripts Active Reported Hydroxyzine Hcl 25 Mg Tablet 25 Mg PO PRN Q2HR PRN Warfarin Sodium 4 Mg Tablet 4 Mg PO DAILY Seroquel (Quetiapine Fumarate) 25 Mg Tablet 12.5 Mg PO BID AT 06/1700 Prazosin Hcl 2 Mg Capsule 2 Mg PO HS Klor-Con M20 (Potassium Chloride) 20 Meq Tab.er.prt 20 Meq PO DAILYWBKFT Ondansetron Odt (Ondansetron) 4 Mg Tab.rapdis 4 Mg PO PRN Q4HRS PRN Zyprexa Zydis (Olanzapine) 5 Mg Tab.rapdis 2.5 Mg PO PRN Q2HR PRN Analgesic [place] (Methyl Salicylate/Menthol) 28 Gm Oint...g. 1 Evan TP PRN QID PRN Furosemide 40 Mg Tablet 40 Mg PO DAILY Carvedilol 25 Mg Tablet 25 Mg PO BIDWMEALS Vitamin D3 (Cholecalciferol (Vitamin D3)) 50,000 Unit Capsule 50,000 Unit PO WEEKLY Vitamin B-12 (Cyanocobalamin (Vitamin B-12)) 1,000 Mcg Tablet 1,000 Mcg PO DAILY Probiotic (Saccharomyces Boulardii) 250 Mg Capsule 250 Mg PO DAILY Norvasc (Amlodipine Besylate) 5 Mg Tablet 5 Mg PO DAILY Nephro-Vikram Tablet (Folic Acid/Vitamin B Comp W-C) 0.8 Mg Tablet 1 Tab PO DAILY PRN EXELON 9.5mg/24hr (Rivastigmine) 1 Each Patch.td24 1 Patch TD DAILY Saline Nasal [place] (Sodium Chloride) 30 Ml [place] 30 Ml NS TID Mag-Al Plus Xs Suspension (Mag Hydrox/Al Hydrox/Simeth) 30 Ml Oral.susp 15 Ml PO PRN Q6HRS PRN Potassium Chloride Oral Liquid (Potassium Chloride) 20 Meq/15 Ml Liquid 20 Meq PO 3X/WEEK Administer on Thursday, Thursday and Thursday Thera-M Tablet (Multivits,Ca,Minerals/Iron/Fa) 1 Each Tablet 1 Tab PO DAILY Namenda (Memantine Hcl) 5 Mg Tablet 10 Mg PO BID Voltaren (Diclofenac Sodium) 100 Gm Gel..gram. 1 Evan TP PRN Q12HR PRN Systane 0.3-0.4% Eye Drops (Propylene Glycol/Peg 400) 15 Ml Drops 2 Drop OU PRN QID PRN Senokot-S Tablet (Sennosides/Docusate Sodium) 1 Each Tablet 1 Tab PO BID Milk Of Magnesia (Magnesium Hydroxide) 2,400 Mg/10 Ml Oral.susp 30 Ml PO PRN QHS PRN Imodium A-D (Loperamide Hcl) 1 Mg/7.5 Ml Liquid 2 Mg PO PRN Q2HR PRN Max dose of 16mg in 24 hours Dulcolax (Bisacodyl) 10 Mg Supp.rect 10 Mg RC PRN DAILY PRN Atorvastatin Calcium 20 Mg Tablet 20 Mg PO QHS Aspir-Low (Aspirin) 81 Mg Tablet. 81 Mg PO DAILY Proair Hfa Inhaler (Albuterol Sulfate) 8.5 Gm Hfa.aer.ad 1 Puff INH PRN Q6HRS PRN Acetaminophen 500 Mg Tablet 500 Mg PO PRN Q4HRS PRN NTE 3000mg APAP in 24 hours from all sources I have reviewed the current psychotropics carefully including drug interactions. Risk benefit ratio favors no change other than as noted in my dictated progress note. Diagnosis: Problems: (1) Agitation (2) Acute ischemic stroke (3) Syncope (4) Hemiplegia affecting left nondominant side (5) TIA (transient ischemic attack) (6) Hypertension (7) Anxiety disorder (8) Dementia, vascular, with delusions (9) Dementia, vascular, with depression (10) Impulse control disorder (11) Acute kidney injury DEAN GARDNER MD Apr 16, 2018 20:55
--- NOTE | 2018-04-17 00:20 | NUR ---
Behavior Intervention Response and Plan: BIRP Note: Behavior: Assumed Care of patient, patient located in Day Room at shift change. Patient exhibited the following behavior Calm, Resistive, Interactive. Brief assessment on rounds of vital signs, medication needs, lab studies, and pain. Treatment plan problems 1 and 2. Intervention: Patient assessed and the following interventions initiated safety checks 15 Minute Checks Cognitive Assessment , Head to toe Assessment , Medications. Response: After interactions and interventions patient responded in the following manner, Calm , Compliant ,Cooperative. Continue to assess behaviors and condition will continue to monitor throughout the shift as needed. Patient educated on ADL's, and hand hygiene. Plan: Continue to monitor Master Treatment Plan for patient's progress toward short term goals of Decreased Agitation, Decreased Aggression, long term care social worker goals to return to previous living setting vs placement. Continue to assess patient for changes in above assessment. Monitor for medication needs, pain, and safety concerns. Hourly rounding performed to ensure safe environment.
[2018-04-17 06:04] VITALS: BP 158/78
[2018-04-17] MEDS: RIVASTIGMINE 9.5MG PATCH. TD SCH (07:34)
[2018-04-17] MEDS: MULTIVITAMIN with MINERAL TABLET. PO SCH (07:34)
[2018-04-17] MEDS: CYANOCOBALAMIN (VITAMIN B-12) 1,000 MCG TABLET. PO SCH (07:35)
[2018-04-17] MEDS: FUROSEMIDE 40 MG TABLET PO SCH (07:35)
[2018-04-17] MEDS: QUEtiapine 25 MG TABLET. PO SCH ×2 (07:35→18:03)
[2018-04-17] MEDS: ASPIRIN ENTERIC COATED 81 MG TABLET.DR. PO SCH (07:35)
[2018-04-17] MEDS: WARFARIN 4 MG TABLET. PO SCH (07:35)
[2018-04-17] MEDS: POTASSIUM CHLORIDE 20 MEQ TABLET.ER. PO SCH (07:35)
[2018-04-17] MEDS: SENNOSIDES/DOCUSATE 8.6/50MG TABLET. PO SCH ×2 (07:35→19:30)
[2018-04-17] MEDS: MEMANTINE 10 MG TABLET. PO SCH ×2 (07:35→19:30)
[2018-04-17] MEDS: amLODIPine BESYLATE 5 MG TABLET PO SCH (07:36)
[2018-04-17] MEDS: CARVEDILOL 12.5 MG TABLET PO SCH ×2 (07:36→17:00)
[2018-04-17] MEDS: LACTOBACILLUS RHAMNOSUS GG 1 CAPSULE. PO SCH ×2 (07:37→19:31)
[2018-04-17] MEDS: CHOLECALCIFEROL (VITAMIN D3) 50,000 UNIT CAPSULE PO SCH (07:38)
--- NOTE | 2018-04-17 09:55 | NUR ---
Behavior Intervention Response and Plan: BIRP Note: Behavior: Assumed Care of patient, patient located in Dining Room at shift change. Patient exhibited the following behavior Disorganized, Demanding, Attention Seeking. Brief assessment on rounds of vital signs, medication needs, lab studies, and pain. Treatment plan problems . Intervention: Patient assessed and the following interventions initiated safety checks 15 Minute Checks Cognitive Assessment , Head to toe Assessment , Medications. Response: After interactions and interventions patient responded in the following manner, Attention Seeking , Demanding ,Non Compliant. Continue to assess behaviors and condition will continue to monitor throughout the shift as needed. Patient educated on ADL's, and hand hygiene. Plan: Continue to monitor Master Treatment Plan for patient's progress toward short term goals of Decreased Agitation, Decreased Aggression, retirement goals to return to previous living setting vs placement. Continue to assess patient for changes in above assessment. Monitor for medication needs, pain, and safety concerns. Hourly rounding performed to ensure safe environment.
[2018-04-17 16:05] VITALS: BP 103/52
--- NOTE | 2018-04-17 16:12 | NUR ---
pt yells out again during breakfast and was removed from DR. Ate meal in [place] monitored by staff. Zydis given. intermittently irritable with staff. compliant with meds.
--- NOTE | 2018-04-17 18:23 | NUR ---
Behavior Intervention Response and Plan: BIRP Note: Behavior: Assumed Care of patient, patient located in Dining Room at shift change. Patient exhibited the following behavior Disorganized, Demanding, Attention Seeking. Brief assessment on rounds of vital signs, medication needs, lab studies, and pain. Treatment plan problems . Intervention: Patient assessed and the following interventions initiated safety checks 15 Minute Checks Cognitive Assessment , Head to toe Assessment , Medications. Response: After interactions and interventions patient responded in the following manner, Attention Seeking , Demanding ,Non Compliant. Continue to assess behaviors and condition will continue to monitor throughout the shift as needed. Patient educated on ADL's, and hand hygiene. Plan: Continue to monitor Master Treatment Plan for patient's progress toward short term goals of Decreased Agitation, Decreased Aggression, half-way goals to return to previous living setting vs placement. Continue to assess patient for changes in above assessment. Monitor for medication needs, pain, and safety concerns. Hourly rounding performed to ensure safe environment.
[2018-04-17] MEDS: ATORVASTATIN CALCIUM 20 MG TABLET PO SCH (19:30)
[2018-04-17 19:46] VITALS: BP 126/83
[2018-04-17] MEDS: PRAZOSIN 1 MG CAPSULE. PO SCH (19:49)
--- NOTE | 2018-04-17 22:52 | PDOC ---
Exam Note: [place] Note: Please also refer to the separate dictated note~for this date of service dictated separately.~Patient seen individually. Discussed the patient with Nursing staff reviewed the chart.~Reviewed interim history and current functioning. Reviewed vital signs,~Labs/ Radiology~and current medications noted below. Continue current treatment with the changes noted in the dictated addendum note Assessment: Vital Signs: Vital Signs Date Time Temp Pulse Resp B/P (MAP) Pulse Ox O2 Delivery O2 Flow Rate FiO2 04/17/18 19:49 70 126/63 04/17/18 19:46 97 04/17/18 16:05 98.1 16 04/12/18 16:25 Room Air I&O Intake and Output 04/17/18 07:00 Intake Total 480 ml Balance 480 ml Intake Oral 480 ml # Bowel Movements 1 Current Medications: Meds: Current Medications Acetaminophen (Tylenol) 650 mg PRN Q6HRS PRN PO PAIN / TEMP; Start 03/29/18 at 16:30; Status Cancel Multi-Ingredient Ointment (Analgesic [place]) 1 evan PRN QID PRN TP MUSCLE PAIN; Start 03/29/18 at 16:30 Al Hydroxide/Mg Hydroxide (Mylanta Plus Xs) 15 ml PRN AFTMEALHC PRN PO DYSPEPSIA; Start 03/29/18 at 16:30 Magnesium Hydroxide (Milk Of Magnesia) 2,400 mg PRN QHS PRN PO CONSTIPATION; Start 03/29/18 at 16:30 Albuterol Sulfate (Ventolin Hfa) 1 puff PRN Q6HRS PRN INH SHORTNESS OF BREATH; Start 03/29/18 at 17:00; Status UNV Atorvastatin Calcium (Lipitor) 20 mg QHS PO Last administered on 04/17/18at 19: 30; Start 03/29/18 at 21:00 Vitamin D (Vitamin D3) 50,000 unit WEEKLY PO Last administered on 04/17/18at 07: 38; Start 04/03/18 at 09:00 Cyanocobalamin (Vitamin B-12) 1,000 mcg DAILY PO Last administered on at 07:35; Start 03/30/18 at 09:00 Diclofenac Sodium (Voltaren) 1 evan PRN Q12HR PRN TP PAIN; Start 03/29/18 at 17: 00 Al Hydroxide/Mg Hydroxide (Mylanta Plus Xs) 15 ml PRN Q6HRS PRN PO DYSPEPSIA; Start 03/29/18 at 17:00; Status Cancel Multivitamins/ Calcium (Thera-M Plus) 1 tab DAILY PO Last administered on 07:34; Start 03/30/18 at 09:00 Lactobacillus Rhamnosus (Culturelle) 1 cap BID PO Last administered on 19:31; Start 03/29/18 at 21:00 Senna/Docusate Sodium (Senna Plus) 1 tab BID PO Last administered on 04/17/18 19:30; Start 03/29/18 at 21:00 Acetaminophen (Tylenol) 500 mg PRN Q4HRS PRN PO PAIN / TEMP Last administered on 04/16/18 20:30; Start 03/29/18 at 17:45 Amlodipine Besylate (Norvasc) 5 mg DAILY PO Last administered on 04/17/18 07: 36; Start 03/30/18 at 09:00 Aspirin (Aspirin Enteric Coated) 81 mg DAILY PO Last administered on 04/17/18 07:35; Start 03/30/18 at 09:00 Bisacodyl (Dulcolax Supp) 10 mg PRN DAILY PRN [place] CONSTIPATION; Start 03/29/18 at 17:45 Carvedilol (Coreg) 12.5 mg BIDWMEALS PO Last administered on 03/30/18 16:44; Start 03/30/18 at 08:00; Stop 03/30/18 at 17:57; Status DC Multivit/Ca Carb/ B Cmplx/FA/Prenat (Nephro-Vikram) 1 tab PRN DAILY PRN PO SUPPLEMENT; Start 03/30/18 at 09:00 Loperamide HCl (Imodium) 2 mg PRN Q2HR PRN PO DIARRHEA; Start 03/29/18 at 17:45 Non-Formulary Medication (Magnesium Hydroxide (Milk Of Magnesia)) 30 ml PRN QHS PRN PO CONSTIPATION; Start 03/29/18 at 17:00; Status UNV Memantine (Namenda) 10 mg BID PO Last administered on 04/17/18 19:30; Start at 21:00 Potassium Chloride (Klor-Con) 20 meq 3X/WEEK PO Last administered on 04/16/18at 07:47; Start 03/31/18 at 09:00 Artificial Tears (Artificial Tears) 2 drop PRN QID PRN OU DRY EYE; Start at 18:00 Rivastigmine (Exelon) 1 patch DAILY TD Last administered on 04/17/18at 07:34; Start 03/30/18 at 09:00 Sodium Chloride (Saline Mist Nasal) 1 evan PRN TID PRN NS NASAL CONGESTION; Start 03/29/18 at 18:00 Warfarin Sodium (Coumadin) 3 mg DAILY16 PO Last administered on 04/05/18at 17:28 ; Start 03/29/18 at 18:00; Stop 04/05/18 at 17:37; Status DC Ondansetron HCl (Zofran Odt) 4 mg PRN Q4HRS PRN PO NAUSEA/VOMITING; Start at 17:30 Albuterol Sulfate (Ventolin) 2.5 mg PRN Q6HRS PRN NEB SHORTNESS OF BREATH; Start 03/29/18 at 18:00 Warfarin Sodium (Coumadin Per Physician) 1 each PRN DAILY PRN MC SEE COMMENTS; Start 03/29/18 at 18:00 Olanzapine (ZyPREXA ZYDIS) 2.5 mg PRN Q2HR PRN PO PSYCHOSIS Last administered on 04/17/18at 07:40; Start 03/29/18 at 19:15 Cefpodoxime Proxetil (Vantin) 100 mg BID PO Last administered on 04/05/18at 19: 24; Start 03/29/18 at 21:00; Stop 04/05/18 at 23:00; Status DC Amlodipine Besylate (Norvasc) 5 mg BID PRN PO ELEVATED BP, SEE COMMENTS Last administered on 03/30/18at 15:29; Start 03/30/18 at 15:30; Stop 04/06/18 at 19:36; Status DC Carvedilol (Coreg) 12.5 mg 1X ONCE PO Last administered on 03/30/18at 18:05; Start 03/30/18 at 18:00; Stop 03/30/18 at 18:01; Status DC Carvedilol (Coreg) 25 mg BIDWMEALS PO Last administered on 04/17/18at 07:36; Start 03/31/18 at 08:00 Quetiapine Fumarate (SEROquel) 12.5 mg 1X ONCE PO Last administered on at 18:21; Start 03/31/18 at 18:15; Stop 03/31/18 at 18:18; Status DC Quetiapine Fumarate (SEROquel) 12.5 mg BID@0900,1700 PO Last administered on at 18:03; Start 04/01/18 at 09:00 Hydroxyzine HCl (Atarax) 25 mg PRN Q2HR PRN PO PSYCHOSIS Last administered on at 21:43; Start 04/03/18 at 23:15 Warfarin Sodium (Coumadin) 4 mg DAILY PO Last administered on 04/17/18at 07:35; Start 04/06/18 at 16:00; Stop 04/17/18 at 10:17; Status DC Warfarin Sodium (Coumadin) 1 mg 1X ONCE PO Last administered on 04/05/18at 17: 45; Start 04/05/18 at 17:45; Stop 04/05/18 at 17:46; Status DC Prazosin HCl (Minipress) 1 mg HS PO Last administered on 04/05/18at 19:34; Start 04/05/18 at 21:00; Stop 04/06/18 at 18:03; Status DC Prazosin HCl (Minipress) 2 mg HS PO Last administered on 04/17/18at 19:49; Start 04/06/18 at 21:00 Furosemide (Lasix) 40 mg DAILY PO Last administered on 04/17/18at 07:35; Start 04/12/18 at 09:00 Potassium Chloride (Klor-Con) 20 meq DAILYWBKFT PO Last administered on at 07:35; Start 04/12/18 at 08:00 Warfarin Sodium (Coumadin) 4 mg DAILY16 PO ; Start 04/18/18 at 16:00 Active Scripts Active Reported Hydroxyzine Hcl 25 Mg Tablet 25 Mg PO PRN Q2HR PRN Warfarin Sodium 4 Mg Tablet 4 Mg PO DAILY Seroquel (Quetiapine Fumarate) 25 Mg Tablet 12.5 Mg PO BID AT 06/1700 Prazosin Hcl 2 Mg Capsule 2 Mg PO HS Klor-Con M20 (Potassium Chloride) 20 Meq Tab.er.prt 20 Meq PO DAILYWBKFT Ondansetron Odt (Ondansetron) 4 Mg Tab.rapdis 4 Mg PO PRN Q4HRS PRN Zyprexa Zydis (Olanzapine) 5 Mg Tab.rapdis 2.5 Mg PO PRN Q2HR PRN Analgesic [place] (Methyl Salicylate/Menthol) 28 Gm Oint...g. 1 Evan TP PRN QID PRN Furosemide 40 Mg Tablet 40 Mg PO DAILY Carvedilol 25 Mg Tablet 25 Mg PO BIDWMEALS Vitamin D3 (Cholecalciferol (Vitamin D3)) 50,000 Unit Capsule 50,000 Unit PO WEEKLY Vitamin B-12 (Cyanocobalamin (Vitamin B-12)) 1,000 Mcg Tablet 1,000 Mcg PO DAILY Probiotic (Saccharomyces Boulardii) 250 Mg Capsule 250 Mg PO DAILY Norvasc (Amlodipine Besylate) 5 Mg Tablet 5 Mg PO DAILY Nephro-Vikram Tablet (Folic Acid/Vitamin B Comp W-C) 0.8 Mg Tablet 1 Tab PO DAILY PRN EXELON 9.5mg/24hr (Rivastigmine) 1 Each Patch.td24 1 Patch TD DAILY Saline Nasal [place] (Sodium Chloride) 30 Ml [place] 30 Ml NS TID Mag-Al Plus Xs Suspension (Mag Hydrox/Al Hydrox/Simeth) 30 Ml Oral.susp 15 Ml PO PRN Q6HRS PRN Potassium Chloride Oral Liquid (Potassium Chloride) 20 Meq/15 Ml Liquid 20 Meq PO 3X/WEEK Administer on Thursday, Thursday and Thursday Thera-M Tablet (Multivits,Ca,Minerals/Iron/Fa) 1 Each Tablet 1 Tab PO DAILY Namenda (Memantine Hcl) 5 Mg Tablet 10 Mg PO BID Voltaren (Diclofenac Sodium) 100 Gm Gel..gram. 1 Evan TP PRN Q12HR PRN Systane 0.3-0.4% Eye Drops (Propylene Glycol/Peg 400) 15 Ml Drops 2 Drop OU PRN QID PRN Senokot-S Tablet (Sennosides/Docusate Sodium) 1 Each Tablet 1 Tab PO BID Milk Of Magnesia (Magnesium Hydroxide) 2,400 Mg/10 Ml Oral.susp 30 Ml PO PRN QHS PRN Imodium A-D (Loperamide Hcl) 1 Mg/7.5 Ml Liquid 2 Mg PO PRN Q2HR PRN Max dose of 16mg in 24 hours Dulcolax (Bisacodyl) 10 Mg Supp.rect 10 Mg RC PRN DAILY PRN Atorvastatin Calcium 20 Mg Tablet 20 Mg PO QHS Aspir-Low (Aspirin) 81 Mg Tablet.dr 81 Mg PO DAILY Proair Hfa Inhaler (Albuterol Sulfate) 8.5 Gm Hfa.aer.ad 1 Puff INH PRN Q6HRS PRN Acetaminophen 500 Mg Tablet 500 Mg PO PRN Q4HRS PRN NTE 3000mg APAP in 24 hours from all sources I have reviewed the current psychotropics carefully including drug interactions. Risk benefit ratio favors no change other than as noted in my dictated progress note. Diagnosis: Problems: (1) Agitation (2) Acute ischemic stroke (3) Syncope (4) Hemiplegia affecting left nondominant side (5) TIA (transient ischemic attack) (6) Hypertension (7) Anxiety disorder (8) Dementia, vascular, with delusions (9) Dementia, vascular, with depression (10) Impulse control disorder (11) Acute kidney injury DEAN GARDNER MD Apr 17, 2018 22:52
--- NOTE | 2018-04-17 23:12 | NUR ---
Behavior Intervention Response and Plan: BIRP Note: Behavior: Assumed Care of patient, patient located in Day Room at shift change. Patient exhibited the following behavior Calm, Interactive, Cooperative. Brief assessment on rounds of vital signs, medication needs, lab studies, and pain. Treatment plan problems 1 and 2. Intervention: Patient assessed and the following interventions initiated safety checks 15 Minute Checks Cognitive Assessment , Head to toe Assessment , Medications. Response: After interactions and interventions patient responded in the following manner, Calm , Compliant ,Cooperative. Continue to assess behaviors and condition will continue to monitor throughout the shift as needed. Patient educated on ADL's, and hand hygiene. Plan: Continue to monitor Master Treatment Plan for patient's progress toward short term goals of Decreased Agitation, Decreased Aggression, long-term goals to return to previous living setting vs placement. Continue to assess patient for changes in above assessment. Monitor for medication needs, pain, and safety concerns. Hourly rounding performed to ensure safe environment.
[2018-04-18 06:40] VITALS: BP 129/87
[2018-04-18] MEDS: RIVASTIGMINE 9.5MG PATCH. TD SCH (07:30)
[2018-04-18] MEDS: ASPIRIN ENTERIC COATED 81 MG TABLET.DR. PO SCH (07:31)
[2018-04-18] MEDS: POTASSIUM CHLORIDE 20 MEQ TABLET.ER. PO SCH (07:31)
[2018-04-18] MEDS: amLODIPine BESYLATE 5 MG TABLET PO SCH (07:31)
[2018-04-18] MEDS: SENNOSIDES/DOCUSATE 8.6/50MG TABLET. PO SCH ×2 (07:31→19:49)
[2018-04-18] MEDS: CARVEDILOL 12.5 MG TABLET PO SCH ×2 (07:32→17:58)
[2018-04-18] MEDS: LACTOBACILLUS RHAMNOSUS GG 1 CAPSULE. PO SCH ×2 (07:32→19:49)
[2018-04-18] MEDS: MEMANTINE 10 MG TABLET. PO SCH ×2 (07:32→19:49)
[2018-04-18] MEDS: FUROSEMIDE 40 MG TABLET PO SCH (07:32)
[2018-04-18] MEDS: MULTIVITAMIN with MINERAL TABLET. PO SCH (07:32)
[2018-04-18] MEDS: CYANOCOBALAMIN (VITAMIN B-12) 1,000 MCG TABLET. PO SCH (07:32)
[2018-04-18] MEDS ORDERED: QUEtiapine 25 MG TABLET. PO SCH ×2 (09:00→17:00)
--- NOTE | 2018-04-18 10:45 | NUR ---
Behavior Intervention Response and Plan: BIRP Note: Behavior: Assumed Care of patient, patient located in Hallway at shift change. Patient exhibited the following behavior Disorganized, Compliant, Wandering. Brief assessment on rounds of vital signs, medication needs, lab studies, and pain. Treatment plan problems . Intervention: Patient assessed and the following interventions initiated safety checks 15 Minute Checks Cognitive Assessment , Head to toe Assessment , Medications. Response: After interactions and interventions patient responded in the following manner, Disorganized , Wandering ,Compliant. Continue to assess behaviors and condition will continue to monitor throughout the shift as needed. Patient educated on ADL's, and hand hygiene. Plan: Continue to monitor Master Treatment Plan for patient's progress toward short term goals of Decreased Agitation, Decreased Aggression, [place] goals to return to previous living setting vs placement. Continue to assess patient for changes in above assessment. Monitor for medication needs, pain, and safety concerns. Hourly rounding performed to ensure safe environment.
--- NOTE | 2018-04-18 15:39 | NUR ---
Pt up in wc. complaint with meds and cares. yelled out for short time before breakfast but has been calm since.
[2018-04-18 16:21] VITALS: BP 155/84
[2018-04-18] MEDS: WARFARIN 4 MG TABLET. PO SCH (17:58)
[2018-04-18] MEDS: PRAZOSIN 1 MG CAPSULE. PO SCH (19:49)
[2018-04-18] MEDS: ATORVASTATIN CALCIUM 20 MG TABLET PO SCH (19:49)
--- NOTE | 2018-04-18 20:00 | NUR ---
Patient is in room yelling to get me out of here. Administered PRN zydis. Will continue to monitor.
--- NOTE | 2018-04-18 21:01 | PDOC ---
Exam Note: [place] Note: Please also refer to the separate dictated note~for this date of service dictated separately.~Patient seen individually. Discussed the patient with Nursing staff reviewed the chart.~Reviewed interim history and current functioning. Reviewed vital signs,~Labs/ Radiology~and current medications noted below. Continue current treatment with the changes noted in the dictated addendum note Assessment: Vital Signs: Vital Signs Date Time Temp Pulse Resp B/P (MAP) Pulse Ox O2 Delivery O2 Flow Rate FiO2 04/18/18 19:49 70 155/84 04/18/18 16:21 98.6 20 99 04/12/18 16:25 Room Air I&O Intake and Output 04/18/18 07:00 Intake Total 1320 ml Balance 1320 ml Intake Oral 1320 ml Labs: Laboratory Tests Test 04/18/18 13:45 Prothrombin Time 19.7 SEC (9.4-11.4) H Prothrombin Time INR 1.9 (0.9-1.1) H Current Medications: Meds: Current Medications Acetaminophen (Tylenol) 650 mg PRN Q6HRS PRN PO PAIN / TEMP; Start 03/29/18 at 16:30; Status Cancel Multi-Ingredient Ointment (Analgesic [place]) 1 evan PRN QID PRN TP MUSCLE PAIN; Start 03/29/18 at 16:30 Al Hydroxide/Mg Hydroxide (Mylanta Plus Xs) 15 ml PRN AFTMEALHC PRN PO DYSPEPSIA; Start 03/29/18 at 16:30 Magnesium Hydroxide (Milk Of Magnesia) 2,400 mg PRN QHS PRN PO CONSTIPATION; Start 03/29/18 at 16:30 Albuterol Sulfate (Ventolin Hfa) 1 puff PRN Q6HRS PRN INH SHORTNESS OF BREATH; Start 03/29/18 at 17:00; Status UNV Atorvastatin Calcium (Lipitor) 20 mg QHS PO Last administered on 04/18/18at 19: 49; Start 03/29/18 at 21:00 Vitamin D (Vitamin D3) 50,000 unit WEEKLY PO Last administered on 04/17/18at 07: 38; Start 04/03/18 at 09:00 Cyanocobalamin (Vitamin B-12) 1,000 mcg DAILY PO Last administered on at 07:32; Start 03/30/18 at 09:00 Diclofenac Sodium (Voltaren) 1 evan PRN Q12HR PRN TP PAIN; Start 03/29/18 at 17: 00 Al Hydroxide/Mg Hydroxide (Mylanta Plus Xs) 15 ml PRN Q6HRS PRN PO DYSPEPSIA; Start 03/29/18 at 17:00; Status Cancel Multivitamins/ Calcium (Thera-M Plus) 1 tab DAILY PO Last administered on 07:32; Start 03/30/18 at 09:00 Lactobacillus Rhamnosus (Culturelle) 1 cap BID PO Last administered on 19:49; Start 03/29/18 at 21:00 Senna/Docusate Sodium (Senna Plus) 1 tab BID PO Last administered on 04/18/18 19:49; Start 03/29/18 at 21:00 Acetaminophen (Tylenol) 500 mg PRN Q4HRS PRN PO PAIN / TEMP Last administered on 04/16/18 20:30; Start 03/29/18 at 17:45 Amlodipine Besylate (Norvasc) 5 mg DAILY PO Last administered on 04/18/18at 07: 31; Start 03/30/18 at 09:00 Aspirin (Aspirin Enteric Coated) 81 mg DAILY PO Last administered on 04/18/18 07:31; Start 03/30/18 at 09:00 Bisacodyl (Dulcolax Supp) 10 mg PRN DAILY PRN [place] CONSTIPATION; Start 03/29/18 at 17:45 Carvedilol (Coreg) 12.5 mg BIDWMEALS PO Last administered on 03/30/18at 16:44; Start 03/30/18 at 08:00; Stop 03/30/18 at 17:57; Status DC Multivit/Ca Carb/ B Cmplx/FA/Prenat (Nephro-Vikram) 1 tab PRN DAILY PRN PO SUPPLEMENT; Start 03/30/18 at 09:00 Loperamide HCl (Imodium) 2 mg PRN Q2HR PRN PO DIARRHEA; Start 03/29/18 at 17:45 Non-Formulary Medication (Magnesium Hydroxide (Milk Of Magnesia)) 30 ml PRN QHS PRN PO CONSTIPATION; Start 03/29/18 at 17:00; Status UNV Memantine (Namenda) 10 mg BID PO Last administered on 04/18/18 19:49; Start at 21:00 Potassium Chloride (Klor-Con) 20 meq 3X/WEEK PO Last administered on 04/16/18at 07:47; Start 03/31/18 at 09:00 Artificial Tears (Artificial Tears) 2 drop PRN QID PRN OU DRY EYE; Start at 18:00 Rivastigmine (Exelon) 1 patch DAILY TD Last administered on 04/18/18at 07:30; Start 03/30/18 at 09:00 Sodium Chloride (Saline Mist Nasal) 1 evan PRN TID PRN NS NASAL CONGESTION; Start 03/29/18 at 18:00 Warfarin Sodium (Coumadin) 3 mg DAILY16 PO Last administered on 04/05/18 17:28 ; Start 03/29/18 at 18:00; Stop 04/05/18 at 17:37; Status DC Ondansetron HCl (Zofran Odt) 4 mg PRN Q4HRS PRN PO NAUSEA/VOMITING; Start at 17:30 Albuterol Sulfate (Ventolin) 2.5 mg PRN Q6HRS PRN NEB SHORTNESS OF BREATH; Start 03/29/18 at 18:00 Warfarin Sodium (Coumadin Per Physician) 1 each PRN DAILY PRN MC SEE COMMENTS; Start 03/29/18 at 18:00 Olanzapine (ZyPREXA ZYDIS) 2.5 mg PRN Q2HR PRN PO PSYCHOSIS Last administered on 04/18/18 19:49; Start 03/29/18 at 19:15 Cefpodoxime Proxetil (Vantin) 100 mg BID PO Last administered on 04/05/18at 19: 24; Start 03/29/18 at 21:00; Stop 04/05/18 at 23:00; Status DC Amlodipine Besylate (Norvasc) 5 mg BID PRN PO ELEVATED BP, SEE COMMENTS Last administered on 03/30/18at 15:29; Start 03/30/18 at 15:30; Stop 04/06/18 at 19:36; Status DC Carvedilol (Coreg) 12.5 mg 1X ONCE PO Last administered on 03/30/18 18:05; Start 03/30/18 at 18:00; Stop 03/30/18 at 18:01; Status DC Carvedilol (Coreg) 25 mg BIDWMEALS PO Last administered on 04/18/18at 17:58; Start 03/31/18 at 08:00 Quetiapine Fumarate (SEROquel) 12.5 mg 1X ONCE PO Last administered on at 18:21; Start 03/31/18 at 18:15; Stop 03/31/18 at 18:18; Status DC Quetiapine Fumarate (SEROquel) 12.5 mg BID@0900,1700 PO Last administered on at 18:03; Start 04/01/18 at 09:00; Stop 04/18/18 at 07:08; Status DC Hydroxyzine HCl (Atarax) 25 mg PRN Q2HR PRN PO PSYCHOSIS Last administered on at 21:43; Start 04/03/18 at 23:15 Warfarin Sodium (Coumadin) 4 mg DAILY PO Last administered on 04/17/18at 07:35; Start 04/06/18 at 16:00; Stop 04/17/18 at 10:17; Status DC Warfarin Sodium (Coumadin) 1 mg 1X ONCE PO Last administered on 04/05/18at 17: 45; Start 04/05/18 at 17:45; Stop 04/05/18 at 17:46; Status DC Prazosin HCl (Minipress) 1 mg HS PO Last administered on 04/05/18at 19:34; Start 04/05/18 at 21:00; Stop 04/06/18 at 18:03; Status DC Prazosin HCl (Minipress) 2 mg HS PO Last administered on 04/18/18at 19:49; Start 04/06/18 at 21:00 Furosemide (Lasix) 40 mg DAILY PO Last administered on 04/18/18at 07:32; Start 04/12/18 at 09:00 Potassium Chloride (Klor-Con) 20 meq DAILYWBKFT PO Last administered on at 07:31; Start 04/12/18 at 08:00 Warfarin Sodium (Coumadin) 4 mg DAILY16 PO Last administered on 04/18/18at 17:58 ; Start 04/18/18 at 16:00 Quetiapine Fumarate (SEROquel) 25 mg DAILY PO Last administered on 6/24/18at 07 :31; Start 04/18/18 at 09:00 Quetiapine Fumarate (SEROquel) 12.5 mg DAILYBFRSUP PO Last administered on 04/18at 17:58; Start 04/18/18 at 17:00 Active Scripts Active Reported Hydroxyzine Hcl 25 Mg Tablet 25 Mg PO PRN Q2HR PRN Warfarin Sodium 4 Mg Tablet 4 Mg PO DAILY Seroquel (Quetiapine Fumarate) 25 Mg Tablet 12.5 Mg PO BID AT 06/1700 Prazosin Hcl 2 Mg Capsule 2 Mg PO HS Klor-Con M20 (Potassium Chloride) 20 Meq Tab.er.prt 20 Meq PO DAILYWBKFT Ondansetron Odt (Ondansetron) 4 Mg Tab.rapdis 4 Mg PO PRN Q4HRS PRN Zyprexa Zydis (Olanzapine) 5 Mg Tab.rapdis 2.5 Mg PO PRN Q2HR PRN Analgesic [place] (Methyl Salicylate/Menthol) 28 Gm Oint...g. 1 Evan TP PRN QID PRN Furosemide 40 Mg Tablet 40 Mg PO DAILY Carvedilol 25 Mg Tablet 25 Mg PO BIDWMEALS Vitamin D3 (Cholecalciferol (Vitamin D3)) 50,000 Unit Capsule 50,000 Unit PO WEEKLY Vitamin B-12 (Cyanocobalamin (Vitamin B-12)) 1,000 Mcg Tablet 1,000 Mcg PO DAILY Probiotic (Saccharomyces Boulardii) 250 Mg Capsule 250 Mg PO DAILY Norvasc (Amlodipine Besylate) 5 Mg Tablet 5 Mg PO DAILY Nephro-Vikram Tablet (Folic Acid/Vitamin B Comp W-C) 0.8 Mg Tablet 1 Tab PO DAILY PRN EXELON 9.5mg/24hr (Rivastigmine) 1 Each Patch.td24 1 Patch TD DAILY Saline Nasal [place] (Sodium Chloride) 30 Ml [place] 30 Ml NS TID Mag-Al Plus Xs Suspension (Mag Hydrox/Al Hydrox/Simeth) 30 Ml Oral.susp 15 Ml PO PRN Q6HRS PRN Potassium Chloride Oral Liquid (Potassium Chloride) 20 Meq/15 Ml Liquid 20 Meq PO 3X/WEEK Administer on Thursday, Thursday and Thursday Thera-M Tablet (Multivits,Ca,Minerals/Iron/Fa) 1 Each Tablet 1 Tab PO DAILY Namenda (Memantine Hcl) 5 Mg Tablet 10 Mg PO BID Voltaren (Diclofenac Sodium) 100 Gm Gel..gram. 1 Evan TP PRN Q12HR PRN Systane 0.3-0.4% Eye Drops (Propylene Glycol/Peg 400) 15 Ml Drops 2 Drop OU PRN QID PRN Senokot-S Tablet (Sennosides/Docusate Sodium) 1 Each Tablet 1 Tab PO BID Milk Of Magnesia (Magnesium Hydroxide) 2,400 Mg/10 Ml Oral.susp 30 Ml PO PRN QHS PRN Imodium A-D (Loperamide Hcl) 1 Mg/7.5 Ml Liquid 2 Mg PO PRN Q2HR PRN Max dose of 16mg in 24 hours Dulcolax (Bisacodyl) 10 Mg Supp.rect 10 Mg RC PRN DAILY PRN Atorvastatin Calcium 20 Mg Tablet 20 Mg PO QHS Aspir-Low (Aspirin) 81 Mg Tablet.dr 81 Mg PO DAILY Proair Hfa Inhaler (Albuterol Sulfate) 8.5 Gm Hfa.aer.ad 1 Puff INH PRN Q6HRS PRN Acetaminophen 500 Mg Tablet 500 Mg PO PRN Q4HRS PRN NTE 3000mg APAP in 24 hours from all sources I have reviewed the current psychotropics carefully including drug interactions. Risk benefit ratio favors no change other than as noted in my dictated progress note. Diagnosis: Problems: (1) Agitation (2) Acute ischemic stroke (3) Syncope (4) Hemiplegia affecting left nondominant side (5) TIA (transient ischemic attack) (6) Hypertension (7) Anxiety disorder (8) Dementia, vascular, with delusions (9) Dementia, vascular, with depression (10) Impulse control disorder (11) Acute kidney injury DEAN GARDNER MD Apr 18, 2018 21:01
--- NOTE | 2018-04-18 22:02 | NUR ---
Behavior Intervention Response and Plan: BIRP Note: Behavior: Assumed Care of patient, patient located in Patient Room at shift change. Patient exhibited the following behavior Irritable, Non Compliant, Withdrawn. Brief assessment on rounds of vital signs, medication needs, lab studies, and pain. Treatment plan problems . Intervention: Patient assessed and the following interventions initiated safety checks 15 Minute Checks Head to toe Assessment , Cognitive Assessment , Medications. Response: After interactions and interventions patient responded in the following manner, Anxious , Delusions ,Non Compliant with Meds. Continue to assess behaviors and condition will continue to monitor throughout the shift as needed. Patient educated on ADL's, and hand hygiene. 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 Continue to assess patient for changes in above assessment. Monitor for medication needs, pain, and safety concerns. Hourly rounding performed to ensure safe environment.
--- NOTE | 2018-04-18 22:30 | PN ---
DATE: 04/16/2018 This is a late entry for 04/16/2018 covers elements not covered in my initial note. SUBJECTIVE: I met with the patient in the evening. The patient slept 6-1/2 hours, yelling persistently for about 4 hours in the morning then slept for some time, then did okay after lunch. REVIEW OF SYSTEMS: No CV, , pulmonary, eye, ENT system symptoms on review. Ambulation impaired, in wheelchair. MENTAL STATUS EXAM: Oriented to himself. Insight, judgment, recent and remote memory, attention, concentration, fund of knowledge poor, consistent with his diagnosis mentioned in my initial note. PLAN: Continue current psychotropics. May need to increase Seroquel depending on his progress. MAN Beny GARDNER MD DR: DAMIEN/rose JOB#: [id number] / [id number]
--- NOTE | 2018-04-18 23:03 | PN ---
DATE: 04/17/2018 This is a late entry for 04/17/2018 covers elements not covered in my initial note. SUBJECTIVE: I met with the patient in the evening. He is quite agitated in the morning, kicking at the door on 2 separate occasions. REVIEW OF SYSTEMS: Ambulation impaired, in wheelchair. No CV, , pulmonary, eye, ENT system symptoms on review. MENTAL STATUS EXAM: Oriented to himself. Insight, judgment, recent and remote memory, attention, concentration, fund of knowledge poor, consistent with his diagnosis mentioned in my initial note. PLAN: Seroquel is 12.5 mg b.i.d. We will increase the morning dosage to 25 mg. Rest unchanged for now. MAN Beny GARDNER MD DR: DAMIEN/rose JOB#: [id number] / [id number]
--- NOTE | 2018-04-18 23:40 | PN ---
DATE: 04/18/2018 This note covers elements not covered in my initial note. SUBJECTIVE: Overall, the patient had a difficult day. He was yelling out in the morning, did better the rest of the day. By the evening as I met with him, he was extremely loud, disruptive, verbally abrasive to nursing staff and he went to myself. REVIEW OF SYSTEMS: Ambulation impaired, in wheelchair. No CV, , pulmonary, eye, ENT system symptoms on review. Reliability poor. MENTAL STATUS EXAM: Oriented to himself. Insight, judgment, recent and remote memory, attention, concentration, fund of knowledge poor, consistent with his diagnosis from initial note. PLAN: Seroquel is 25 mg a.m., 12.5 at 1500. We will increase to 37.5 mg a.m., 25 mg at 1700. Continue rest from initial note. MAN M. MD JJ DR: DAMIEN/rose JOB#: [id number] / [id number]
[2018-04-19 06:10] VITALS: BP 147/89
[2018-04-19] MEDS: CYANOCOBALAMIN (VITAMIN B-12) 1,000 MCG TABLET. PO SCH (08:12)
[2018-04-19] MEDS: FUROSEMIDE 40 MG TABLET PO SCH (08:12)
[2018-04-19] MEDS: ASPIRIN ENTERIC COATED 81 MG TABLET.DR. PO SCH (08:12)
[2018-04-19] MEDS: POTASSIUM CHLORIDE 20 MEQ TABLET.ER. PO SCH ×2 (08:12→08:14)
[2018-04-19] MEDS: LACTOBACILLUS RHAMNOSUS GG 1 CAPSULE. PO SCH ×2 (08:12→20:07)
[2018-04-19] MEDS: MEMANTINE 10 MG TABLET. PO SCH ×2 (08:12→20:07)
[2018-04-19] MEDS: SENNOSIDES/DOCUSATE 8.6/50MG TABLET. PO SCH ×2 (08:13→20:07)
[2018-04-19] MEDS: CARVEDILOL 12.5 MG TABLET PO SCH ×2 (08:13→16:57)
[2018-04-19] MEDS: amLODIPine BESYLATE 5 MG TABLET PO SCH (08:13)
[2018-04-19] MEDS: RIVASTIGMINE 9.5MG PATCH. TD SCH (08:15)
[2018-04-19] MEDS: hydrOXYzine HCL 25 MG TABLET PO PRN (08:18)
[2018-04-19] MEDS: MULTIVITAMIN with MINERAL TABLET. PO SCH (08:19)
[2018-04-19] MEDS: QUEtiapine 25 MG TABLET. PO SCH ×2 (08:35→16:56)
[2018-04-19] MEDS: WARFARIN 4 MG TABLET. PO SCH (16:07)
[2018-04-19 16:31] VITALS: BP 122/76
[2018-04-19] MEDS: PRAZOSIN 1 MG CAPSULE. PO SCH (20:07)
[2018-04-19] MEDS: ATORVASTATIN CALCIUM 20 MG TABLET PO SCH (20:07)
--- NOTE | 2018-04-19 20:57 | PDOC ---
Exam Note: [place] Note: Please also refer to the separate dictated note~for this date of service dictated separately.~Patient seen individually. Discussed the patient with Nursing staff reviewed the chart.~Reviewed interim history and current functioning. Reviewed vital signs,~Labs/ Radiology~and current medications noted below. Continue current treatment with the changes noted in the dictated addendum note Assessment: Vital Signs: Vital Signs Date Time Temp Pulse Resp B/P (MAP) Pulse Ox O2 Delivery O2 Flow Rate FiO2 04/19/18 20:07 74 122/76 04/19/18 16:31 98.3 20 98 Room Air I&O Intake and Output 04/19/18 07:01 Intake Total 1440 ml Balance 1440 ml Intake Oral 1440 ml # Bowel Movements 1 Current Medications: Meds: Current Medications Acetaminophen (Tylenol) 650 mg PRN Q6HRS PRN PO PAIN / TEMP; Start 03/29/18 at 16:30; Status Cancel Multi-Ingredient Ointment (Analgesic Blair) 1 evan PRN QID PRN TP MUSCLE PAIN; Start 03/29/18 at 16:30 Al Hydroxide/Mg Hydroxide (Mylanta Plus Xs) 15 ml PRN AFTMEALHC PRN PO DYSPEPSIA; Start 03/29/18 at 16:30 Magnesium Hydroxide (Milk Of Magnesia) 2,400 mg PRN QHS PRN PO CONSTIPATION; Start 03/29/18 at 16:30 Albuterol Sulfate (Ventolin Hfa) 1 puff PRN Q6HRS PRN INH SHORTNESS OF BREATH; Start 03/29/18 at 17:00; Status UNV Atorvastatin Calcium (Lipitor) 20 mg QHS PO Last administered on 04/19/18at 20: 07; Start 03/29/18 at 21:00 Vitamin D (Vitamin D3) 50,000 unit WEEKLY PO Last administered on 04/17/18at 07: 38; Start 04/03/18 at 09:00 Cyanocobalamin (Vitamin B-12) 1,000 mcg DAILY PO Last administered on at 08:12; Start 03/30/18 at 09:00 Diclofenac Sodium (Voltaren) 1 evan PRN Q12HR PRN TP PAIN; Start 03/29/18 at 17: 00 Al Hydroxide/Mg Hydroxide (Mylanta Plus Xs) 15 ml PRN Q6HRS PRN PO DYSPEPSIA; Start 03/29/18 at 17:00; Status Cancel Multivitamins/ Calcium (Thera-M Plus) 1 tab DAILY PO Last administered on 08:19; Start 03/30/18 at 09:00 Lactobacillus Rhamnosus (Culturelle) 1 cap BID PO Last administered on 20:07; Start 03/29/18 at 21:00 Senna/Docusate Sodium (Senna Plus) 1 tab BID PO Last administered on 04/19/18 20:07; Start 03/29/18 at 21:00 Acetaminophen (Tylenol) 500 mg PRN Q4HRS PRN PO PAIN / TEMP Last administered on 04/16/18 20:30; Start 03/29/18 at 17:45 Amlodipine Besylate (Norvasc) 5 mg DAILY PO Last administered on 04/19/18 08: 13; Start 03/30/18 at 09:00 Aspirin (Aspirin Enteric Coated) 81 mg DAILY PO Last administered on 04/19/18 08:12; Start 03/30/18 at 09:00 Bisacodyl (Dulcolax Supp) 10 mg PRN DAILY PRN IA CONSTIPATION; Start 03/29/18 at 17:45 Carvedilol (Coreg) 12.5 mg BIDWMEALS PO Last administered on 03/30/18 16:44; Start 03/30/18 at 08:00; Stop 03/30/18 at 17:57; Status DC Multivit/Ca Carb/ B Cmplx/FA/Prenat (Nephro-Vikram) 1 tab PRN DAILY PRN PO SUPPLEMENT; Start 03/30/18 at 09:00 Loperamide HCl (Imodium) 2 mg PRN Q2HR PRN PO DIARRHEA; Start 03/29/18 at 17:45 Non-Formulary Medication (Magnesium Hydroxide (Milk Of Magnesia)) 30 ml PRN QHS PRN PO CONSTIPATION; Start 03/29/18 at 17:00; Status UNV Memantine (Namenda) 10 mg BID PO Last administered on 04/19/18 20:07; Start at 21:00 Potassium Chloride (Klor-Con) 20 meq 3X/WEEK PO Last administered on 6/25/18at 08:14; Start 03/31/18 at 09:00 Artificial Tears (Artificial Tears) 2 drop PRN QID PRN OU DRY EYE; Start at 18:00 Rivastigmine (Exelon) 1 patch DAILY TD Last administered on 04/19/18at 08:15; Start 03/30/18 at 09:00 Sodium Chloride (Saline Mist Nasal) 1 evan PRN TID PRN NS NASAL CONGESTION; Start 03/29/18 at 18:00 Warfarin Sodium (Coumadin) 3 mg DAILY16 PO Last administered on 04/05/18at 17:28 ; Start 03/29/18 at 18:00; Stop 04/05/18 at 17:37; Status DC Ondansetron HCl (Zofran Odt) 4 mg PRN Q4HRS PRN PO NAUSEA/VOMITING; Start at 17:30 Albuterol Sulfate (Ventolin) 2.5 mg PRN Q6HRS PRN NEB SHORTNESS OF BREATH; Start 03/29/18 at 18:00 Warfarin Sodium (Coumadin Per Physician) 1 each PRN DAILY PRN MC SEE COMMENTS; Start 03/29/18 at 18:00 Olanzapine (ZyPREXA ZYDIS) 2.5 mg PRN Q2HR PRN PO PSYCHOSIS Last administered on 04/18/18at 19:49; Start 03/29/18 at 19:15 Cefpodoxime Proxetil (Vantin) 100 mg BID PO Last administered on 04/05/18at 19: 24; Start 03/29/18 at 21:00; Stop 04/05/18 at 23:00; Status DC Amlodipine Besylate (Norvasc) 5 mg BID PRN PO ELEVATED BP, SEE COMMENTS Last administered on 03/30/18at 15:29; Start 03/30/18 at 15:30; Stop 04/06/18 at 19:36; Status DC Carvedilol (Coreg) 12.5 mg 1X ONCE PO Last administered on 03/30/18at 18:05; Start 03/30/18 at 18:00; Stop 03/30/18 at 18:01; Status DC Carvedilol (Coreg) 25 mg BIDWMEALS PO Last administered on 04/19/18at 16:57; Start 03/31/18 at 08:00 Quetiapine Fumarate (SEROquel) 12.5 mg 1X ONCE PO Last administered on at 18:21; Start 03/31/18 at 18:15; Stop 03/31/18 at 18:18; Status DC Quetiapine Fumarate (SEROquel) 12.5 mg BID@0900,1700 PO Last administered on at 18:03; Start 04/01/18 at 09:00; Stop 04/18/18 at 07:08; Status DC Hydroxyzine HCl (Atarax) 25 mg PRN Q2HR PRN PO PSYCHOSIS Last administered on at 08:18; Start 04/03/18 at 23:15 Warfarin Sodium (Coumadin) 4 mg DAILY PO Last administered on 04/17/18at 07:35; Start 04/06/18 at 16:00; Stop 04/17/18 at 10:17; Status DC Warfarin Sodium (Coumadin) 1 mg 1X ONCE PO Last administered on 04/05/18at 17: 45; Start 04/05/18 at 17:45; Stop 04/05/18 at 17:46; Status DC Prazosin HCl (Minipress) 1 mg HS PO Last administered on 04/05/18at 19:34; Start 04/05/18 at 21:00; Stop 04/06/18 at 18:03; Status DC Prazosin HCl (Minipress) 2 mg HS PO Last administered on 04/19/18at 20:07; Start 04/06/18 at 21:00 Furosemide (Lasix) 40 mg DAILY PO Last administered on 04/19/18at 08:12; Start 04/12/18 at 09:00 Potassium Chloride (Klor-Con) 20 meq DAILYWBKFT PO Last administered on at 08:12; Start 04/12/18 at 08:00 Warfarin Sodium (Coumadin) 4 mg DAILY16 PO Last administered on 04/19/18at 16:07 ; Start 04/18/18 at 16:00 Quetiapine Fumarate (SEROquel) 25 mg DAILY PO Last administered on 04/18/18at 07 :31; Start 04/18/18 at 09:00; Stop 04/19/18 at 07:01; Status DC Quetiapine Fumarate (SEROquel) 12.5 mg DAILYBFRSUP PO Last administered on 04/18at 17:58; Start 04/18/18 at 17:00; Stop 04/19/18 at 07:01; Status DC Quetiapine Fumarate (SEROquel) 37.5 mg DAILY PO Last administered on 04/19/18at 08:35; Start 04/19/18 at 09:00 Quetiapine Fumarate (SEROquel) 25 mg DAILYBFRSUP PO Last administered on at 16:56; Start 04/19/18 at 17:00 Divalproex Sodium (Depakote Sprinkles) 125 mg TID@0900,1300,1700 PO ; Start at 09:00 Active Scripts Active Reported Hydroxyzine Hcl 25 Mg Tablet 25 Mg PO PRN Q2HR PRN Warfarin Sodium 4 Mg Tablet 4 Mg PO DAILY Seroquel (Quetiapine Fumarate) 25 Mg Tablet 12.5 Mg PO BID AT 06/1700 Prazosin Hcl 2 Mg Capsule 2 Mg PO HS Klor-Con M20 (Potassium Chloride) 20 Meq Tab.er.prt 20 Meq PO DAILYWBKFT Ondansetron Odt (Ondansetron) 4 Mg Tab.rapdis 4 Mg PO PRN Q4HRS PRN Zyprexa Zydis (Olanzapine) 5 Mg Tab.rapdis 2.5 Mg PO PRN Q2HR PRN Analgesic Blair (Methyl Salicylate/Menthol) 28 Gm Oint...g. 1 Evan TP PRN QID PRN Furosemide 40 Mg Tablet 40 Mg PO DAILY Carvedilol 25 Mg Tablet 25 Mg PO BIDWMEALS Vitamin D3 (Cholecalciferol (Vitamin D3)) 50,000 Unit Capsule 50,000 Unit PO WEEKLY Vitamin B-12 (Cyanocobalamin (Vitamin B-12)) 1,000 Mcg Tablet 1,000 Mcg PO DAILY Probiotic (Saccharomyces Boulardii) 250 Mg Capsule 250 Mg PO DAILY Norvasc (Amlodipine Besylate) 5 Mg Tablet 5 Mg PO DAILY Nephro-Vikram Tablet (Folic Acid/Vitamin B Comp W-C) 0.8 Mg Tablet 1 Tab PO DAILY PRN EXELON 9.5mg/24hr (Rivastigmine) 1 Each Patch.td24 1 Patch TD DAILY Saline Nasal [place] (Sodium Chloride) 30 Ml [place] 30 Ml NS TID Mag-Al Plus Xs Suspension (Mag Hydrox/Al Hydrox/Simeth) 30 Ml Oral.susp 15 Ml PO PRN Q6HRS PRN Potassium Chloride Oral Liquid (Potassium Chloride) 20 Meq/15 Ml Liquid 20 Meq PO 3X/WEEK Administer on Thursday, Thursday and Thursday Thera-M Tablet (Multivits,Ca,Minerals/Iron/Fa) 1 Each Tablet 1 Tab PO DAILY Namenda (Memantine Hcl) 5 Mg Tablet 10 Mg PO BID Voltaren (Diclofenac Sodium) 100 Gm Gel..gram. 1 Evan TP PRN Q12HR PRN Systane 0.3-0.4% Eye Drops (Propylene Glycol/Peg 400) 15 Ml Drops 2 Drop OU PRN QID PRN Senokot-S Tablet (Sennosides/Docusate Sodium) 1 Each Tablet 1 Tab PO BID Milk Of Magnesia (Magnesium Hydroxide) 2,400 Mg/10 Ml Oral.susp 30 Ml PO PRN QHS PRN Imodium A-D (Loperamide Hcl) 1 Mg/7.5 Ml Liquid 2 Mg PO PRN Q2HR PRN Max dose of 16mg in 24 hours Dulcolax (Bisacodyl) 10 Mg Supp.rect 10 Mg RC PRN DAILY PRN Atorvastatin Calcium 20 Mg Tablet 20 Mg PO QHS Aspir-Low (Aspirin) 81 Mg Tablet.dr 81 Mg PO DAILY Proair Hfa Inhaler (Albuterol Sulfate) 8.5 Gm Hfa.aer.ad 1 Puff INH PRN Q6HRS PRN Acetaminophen 500 Mg Tablet 500 Mg PO PRN Q4HRS PRN NTE 3000mg APAP in 24 hours from all sources I have reviewed the current psychotropics carefully including drug interactions. Risk benefit ratio favors no change other than as noted in my dictated progress note. Diagnosis: Problems: (1) Agitation (2) Acute ischemic stroke (3) Syncope (4) Hemiplegia affecting left nondominant side (5) TIA (transient ischemic attack) (6) Hypertension (7) Anxiety disorder (8) Dementia, vascular, with delusions (9) Dementia, vascular, with depression (10) Impulse control disorder (11) Acute kidney injury DEAN GARDNER MD Apr 19, 2018 20:57
--- NOTE | 2018-04-20 00:38 | NUR ---
Behavior Intervention Response and Plan: BIRP Note: Behavior: Assumed Care of patient, patient located in Day Room at shift change. Patient exhibited the following behavior Calm, Disorganized, Delusions. Brief assessment on rounds of vital signs, medication needs, lab studies, and pain. Treatment plan problems 1 and 2. Intervention: Patient assessed and the following interventions initiated safety checks 15 Minute Checks Cognitive Assessment , Head to toe Assessment , Medications. Response: After interactions and interventions patient responded in the following manner, Calm , Compliant ,Cooperative. Continue to assess behaviors and condition will continue to monitor throughout the shift as needed. Patient educated on ADL's, and hand hygiene. 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 Continue to assess patient for changes in above assessment. Monitor for medication needs, pain, and safety concerns. Hourly rounding performed to ensure safe environment.
[2018-04-20 07:26] VITALS: BP 139/95
[2018-04-20] MEDS: LACTOBACILLUS RHAMNOSUS GG 1 CAPSULE. PO SCH ×2 (08:25→19:23)
[2018-04-20] MEDS: amLODIPine BESYLATE 5 MG TABLET PO SCH (08:26)
[2018-04-20] MEDS: CARVEDILOL 12.5 MG TABLET PO SCH ×2 (08:26→17:12)
[2018-04-20] MEDS: POTASSIUM CHLORIDE 20 MEQ TABLET.ER. PO SCH (08:26)
[2018-04-20] MEDS: SENNOSIDES/DOCUSATE 8.6/50MG TABLET. PO SCH ×2 (08:26→19:23)
[2018-04-20] MEDS: MULTIVITAMIN with MINERAL TABLET. PO SCH (08:27)
[2018-04-20] MEDS: FUROSEMIDE 40 MG TABLET PO SCH (08:27)
[2018-04-20] MEDS: DIVALPROEX 125 MG CAP.SPRINK PO SCH ×3 (08:27→17:12)
[2018-04-20] MEDS: ASPIRIN ENTERIC COATED 81 MG TABLET.DR. PO SCH (08:27)
[2018-04-20] MEDS: MEMANTINE 10 MG TABLET. PO SCH ×2 (08:27→19:23)
[2018-04-20] MEDS: QUEtiapine 25 MG TABLET. PO SCH ×2 (08:28→17:13)
[2018-04-20] MEDS: CYANOCOBALAMIN (VITAMIN B-12) 1,000 MCG TABLET. PO SCH (08:29)
[2018-04-20] MEDS: RIVASTIGMINE 9.5MG PATCH. TD SCH (08:29)
--- NOTE | 2018-04-20 15:35 | NUR ---
Behavior Intervention Response and Plan: BIRP Note: Behavior: Assumed Care of patient. Patient located in hallway at shift change. Patient exhibited the following behavior: wandering, appropriate, and compliant. Brief assessment on rounds of vital signs, medication needs, lab studies, and pain. Treatment plan problems. Intervention: Patient assessed and the following interventions initiated: safety checks, 15-minute checks, cognitive assessment, head-to-toe assessment, and medications. Response: After interactions and interventions patient responded in the following manner: calm, social, cooperative. Continue to assess behaviors and condition will continue to monitor throughout the shift as needed. Patient educated on ADL's and hand hygiene. Plan: Continue to monitor master treatment plan for patient's progress toward short term goals of improved mood and decreased agitation. detention goal to return to previous living setting vs placement. Continue to assess patient for changes in above assessment. Monitor for medication needs, pain, and safety concerns. Hourly rounding performed to ensure safe environment.
[2018-04-20 16:43] VITALS: BP 112/65
[2018-04-20] MEDS: WARFARIN 4 MG TABLET. PO SCH (17:12)
[2018-04-20] MEDS: PRAZOSIN 1 MG CAPSULE. PO SCH (19:23)
[2018-04-20] MEDS: ATORVASTATIN CALCIUM 20 MG TABLET PO SCH (19:23)
[2018-04-20] MEDS: hydrOXYzine HCL 25 MG TABLET PO PRN (19:25)
--- NOTE | 2018-04-20 20:04 | PN ---
DATE: 04/19/2018 This is a late entry for 04/19/2018 and covers the elements not covered in my initial note. SUBJECTIVE: I met with the patient in the evening. The patient slept 7-3/4 hours previous evening, was quite agitated in the morning, paranoid, believes people stole his stuff, had to be removed from the dining room in the evening because he threw his tray and was extremely disruptive, labile. REVIEW OF SYSTEMS: Ambulation impaired, in wheelchair. No CV, , pulmonary, eye, ENT system symptoms on review. Reliability poor. MENTAL STATUS EXAM: Oriented to himself. Insight, judgment, recent and remote memory, attention, concentration, fund of knowledge poor, consistent with his diagnosis mentioned in my initial note. IMPRESSION: Major neurocognitive disorder, Alzheimer, vascular with delusion, depression, behavioral disturbance; anxiety disorder, unspecified; impulse control disorder, unspecified. PLAN: Continue psychotropics from initial note. Start Depakote Sprinkles 125 mg 3 times a day. Check CBC, CMP, valproic acid level in 3 days. Adjust further as clinically indicated. Discussed with social service staff and we will postpone discharge till he is more stable. DEAN GARDNER MD DR: DAMIEN/rose JOB#: [id number] / [id number]
[2018-04-20 21:31] LABS: BACTERIA,URINE 0 /HPF (0-FEW); BILIRUBIN,URINE NEG (NEG); CLARITY,URINE CLEAR; COLOR,URINE YELLOW; GLUCOSE,URINE NEG (NEG); NITRITE,URINE NEG (NEG); RBC,URINE OCC /HPF (0-2); SQUAMOUS EPITHELIAL CELL,UR MOD /LPF; UROBILINOGEN,URINE 0.2 mg/dL (0.2 mg/dL); WBC,URINE OCC /HPF (0-4)
--- NOTE | 2018-04-20 22:15 | NUR ---
Behavior Intervention Response and Plan: BIRP Note: Behavior: Assumed Care of patient, patient located in Day Room at shift change. Patient exhibited the following behavior Calm, Interactive, Disorganized. Brief assessment on rounds of vital signs, medication needs, lab studies, and pain. Treatment plan problems 1 and 2. Intervention: Patient assessed and the following interventions initiated safety checks 15 Minute Checks Cognitive Assessment , Head to toe Assessment , Medications. Response: After interactions and interventions patient responded in the following manner, Calm , Compliant ,Cooperative. Continue to assess behaviors and condition will continue to monitor throughout the shift as needed. Patient educated on ADL's, and hand hygiene. 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 Continue to assess patient for changes in above assessment. Monitor for medication needs, pain, and safety concerns. Hourly rounding performed to ensure safe environment.
[2018-04-21 05:44] VITALS: BP 138/84
[2018-04-21 06:40] LABS: ALBUMIN/GLOBULIN RATIO 0.9 (1.0-1.7); ALK PHOS 87 U/L (46-116); ALT (SGPT) 27 U/L (16-63); ANION GAP 3 (6-14); AST (SGOT) 21 U/L (15-37); BLOOD UREA NITROGEN 20 mg/dL (8-26); BUN/CREATININE RATIO 15 (6-20); CALCIUM 8.8 mg/dL (8.5-10.1); CARBON DIOXIDE 31 mmol/L (21-32); CHLORIDE 103 mmol/L (98-107); CREATININE 1.3 mg/dL (0.7-1.3); GFR 66.4; GLUCOSE 131 mg/dL (70-99); POTASSIUM 4.1 mmol/L (3.5-5.1); SODIUM 137 mmol/L (136-145); TOTAL BILIRUBIN 0.5 mg/dL (0.2-1.0); TOTAL PROTEIN 6.5 g/dL (6.4-8.2)
[2018-04-21 06:44] LABS: VAL ACID 16 mcg/mL (50-100)
[2018-04-21 06:54] LABS: BASO % 1 % (0-3); EOS # 0.3 x10^3/uL (0.0-0.7); EOS % 7 % (0-3); HEMATOCRIT 33.7 % (39.0-53.0); HEMOGLOBIN 11.3 g/dL (13.0-17.5); LYMPH # 2.1 x10^3/uL (1.0-4.8); LYMPH % 45 % (24-48); MEAN CORPUSCULAR HEMOGLOBIN 31 pg (25-35); MEAN CORPUSCULAR HGB CONC 33 g/dL (31-37); MEAN CORPUSCULAR VOLUME 92 fL (79-100); MONO # 0.5 x10^3/uL (0.0-1.1); MONO % 10 % (0-9); NEUT # 1.7 x10^3uL (1.8-7.7); NEUT % 37 % (31-73); PLATELET COUNT 135 x10^3/uL (140-400); RED BLOOD COUNT 3.68 x10^6/uL (4.30-5.70); RED CELL DISTRIBUTION WIDTH 13.9 % (11.5-14.5); WHITE BLOOD COUNT 4.6 x10^3/uL (4.0-11.0)
--- NOTE | 2018-04-21 08:09 | NUR ---
Pt had to be escorted out of the dining room at breakfast. Pt became upset and started yelling because another male pt was coughing. Pt stated "I know he ain't sick. I know a fake when I see one." Pt taken to hallway where he continues to yell and bang on doors and windows.
[2018-04-21] MEDS: amLODIPine BESYLATE 5 MG TABLET PO SCH (08:43)
[2018-04-21] MEDS: DIVALPROEX 125 MG CAP.SPRINK PO SCH ×3 (08:43→17:05)
[2018-04-21] MEDS: QUEtiapine 25 MG TABLET. PO SCH ×2 (08:43→17:05)
[2018-04-21] MEDS: POTASSIUM CHLORIDE 20 MEQ TABLET.ER. PO SCH ×2 (08:43→08:45)
[2018-04-21] MEDS: ASPIRIN ENTERIC COATED 81 MG TABLET.DR. PO SCH (08:44)
[2018-04-21] MEDS: CYANOCOBALAMIN (VITAMIN B-12) 1,000 MCG TABLET. PO SCH (08:44)
[2018-04-21] MEDS: FUROSEMIDE 40 MG TABLET PO SCH (08:44)
[2018-04-21] MEDS: SENNOSIDES/DOCUSATE 8.6/50MG TABLET. PO SCH ×2 (08:44→19:24)
[2018-04-21] MEDS: RIVASTIGMINE 9.5MG PATCH. TD SCH (08:44)
[2018-04-21] MEDS: MULTIVITAMIN with MINERAL TABLET. PO SCH (08:44)
[2018-04-21] MEDS: CARVEDILOL 12.5 MG TABLET PO SCH ×2 (08:44→17:04)
[2018-04-21] MEDS: MEMANTINE 10 MG TABLET. PO SCH ×2 (08:44→19:24)
[2018-04-21] MEDS: LACTOBACILLUS RHAMNOSUS GG 1 CAPSULE. PO SCH ×2 (08:44→19:24)
--- NOTE | 2018-04-21 08:56 | NUR ---
Pt compliant with am medications. Pt stated that he got upset in the dining room because of the egg casserole. Pt stated that he fired the cook that made it and there will be 100 people here tomorrow applying for the position.
--- NOTE | 2018-04-21 11:16 | NUR ---
Behavior Intervention Response and Plan: BIRP Note: Behavior: Assumed Care of patient, patient located in Hallway at shift change. Patient exhibited the following behavior Disorganized, Irritable, Demanding. Brief assessment on rounds of vital signs, medication needs, lab studies, and pain. Treatment plan problems 1-2. Intervention: Patient assessed and the following interventions initiated safety checks 15 Minute Checks Personal Alarm in place , Cognitive Assessment , Head to toe Assessment. Response: After interactions and interventions patient responded in the following manner, Disorganized , Non Compliant ,Agitated. Continue to assess behaviors and condition will continue to monitor throughout the shift as needed. Patient educated on ADL's, and hand hygiene. 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 Continue to assess patient for changes in above assessment. Monitor for medication needs, pain, and safety concerns. Hourly rounding performed to ensure safe environment.
--- NOTE | 2018-04-21 15:00 | NUR ---
WEEKLY THERAPEUTIC RECREATION NOTE Date of Admission: 03/29/2018 Date of AT Assessment: 03/30/2018 Goal aimed: Pt will increase his time management and recreation education. Initial goal: Pt will engage in five groups per week. Weekly progress towards goal: achieved Group participation level: varies Behaviors observed: seems more agitated in the mornings, more interested and engaged in the afternoons, when engaged, very friendly with staff, jokes and laughs; distruptive, yelling, kicking doors; spent time in secured hallway 04/21 Plan: Changed goal to: Pt. will engage fully in five groups per week
[2018-04-21 16:01] VITALS: BP 132/80
[2018-04-21] MEDS: WARFARIN 4 MG TABLET. PO SCH (17:04)
[2018-04-21] MEDS: ATORVASTATIN CALCIUM 20 MG TABLET PO SCH (19:25)
[2018-04-21] MEDS: PRAZOSIN 1 MG CAPSULE. PO SCH (19:26)
--- NOTE | 2018-04-21 20:21 | PDOC ---
Exam Note: [place] Note: Late entry for date of service 20 April 2018. Please also refer to the separate dictated note~for this date of service dictated separately.~Patient seen individually. Discussed the patient with Nursing staff reviewed the chart.~ Reviewed interim history and current functioning. Reviewed vital signs,~Labs/ Radiology~and current medications noted below. Continue current treatment with the changes noted in the dictated addendum note Assessment: Vital Signs: VS - Last 72 Hours, by Label Date Time Temp Pulse Resp B/P (MAP) Pulse Ox O2 Delivery O2 Flow Rate FiO2 04/21/18 19:26 70 132/80 04/21/18 17:04 70 132/80 04/21/18 16:01 98.1 70 18 132/80 (97) 98 Room Air 04/21/18 08:44 61 138/84 04/21/18 08:43 61 138/84 04/21/18 05:44 98.3 61 12 138/84 (102) 97 Room Air 04/20/18 19:23 72 112/65 04/20/18 17:12 72 112/65 04/20/18 16:43 98.7 72 16 112/65 (81) 95 04/20/18 08:26 68 139/95 04/20/18 08:26 68 139/95 04/20/18 07:26 68 18 139/95 (110) 98 04/19/18 20:07 74 122/76 04/19/18 16:57 74 122/76 04/19/18 16:31 98.3 74 20 122/76 (91) 98 Room Air 04/19/18 08:13 64 147/89 04/19/18 08:13 64 147/89 04/19/18 06:10 97.7 64 20 147/89 (108) 96 Room Air Vital Signs Date Time Temp Pulse Resp B/P (MAP) Pulse Ox O2 Delivery O2 Flow Rate FiO2 04/21/18 19:26 70 132/80 04/21/18 16:01 98.1 18 98 Room Air I&O Intake and Output 04/21/18 07:00 Intake Total 840 ml Balance 840 ml Intake Oral 840 ml # Bowel Movements 2 Labs: Laboratory Tests Test 04/21/18 06:08 White Blood Count 4.6 x10^3/uL (4.0-11.0) Red Blood Count 3.68 x10^6/uL (4.30-5.70) L Hemoglobin 11.3 g/dL (13.0-17.5) L Hematocrit 33.7 % (39.0-53.0) L Mean Corpuscular Volume 92 fL (79-100) Mean Corpuscular Hemoglobin 31 pg (25-35) Mean Corpuscular Hemoglobin Concent 33 g/dL (31-37) Red Cell Distribution Width 13.9 % (11.5-14.5) Platelet Count 135 x10^3/uL (140-400) L Neutrophils (%) (Auto) 37 % (31-73) Lymphocytes (%) (Auto) 45 % (24-48) Monocytes (%) (Auto) 10 % (0-9) H Eosinophils (%) (Auto) 7 % (0-3) H Basophils (%) (Auto) 1 % (0-3) Neutrophils # (Auto) 1.7 x10^3uL (1.8-7.7) L Lymphocytes # (Auto) 2.1 x10^3/uL (1.0-4.8) Monocytes # (Auto) 0.5 x10^3/uL (0.0-1.1) Eosinophils # (Auto) 0.3 x10^3/uL (0.0-0.7) Basophils # (Auto) 0.0 x10^3/uL (0.0-0.2) Sodium Level 137 mmol/L (136-145) Potassium Level 4.1 mmol/L (3.5-5.1) Chloride Level 103 mmol/L (98-107) Carbon Dioxide Level 31 mmol/L (21-32) Anion Gap 3 (6-14) L Blood Urea Nitrogen 20 mg/dL (8-26) Creatinine 1.3 mg/dL (0.7-1.3) Estimated GFR (Cockcroft-Gault) 66.4 BUN/Creatinine Ratio 15 (6-20) Glucose Level 131 mg/dL (70-99) H Calcium Level 8.8 mg/dL (8.5-10.1) Total Bilirubin 0.5 mg/dL (0.2-1.0) Aspartate Amino Transferase (AST) 21 U/L (15-37) Alanine Aminotransferase (ALT) 27 U/L (16-63) Alkaline Phosphatase 87 U/L (46-116) Total Protein 6.5 g/dL (6.4-8.2) Albumin 3.0 g/dL (3.4-5.0) L Albumin/Globulin Ratio 0.9 (1.0-1.7) L Valproic Acid Level 16 mcg/mL (50-100) L Valproic Acid Last Dose Date 04/19/2018 Valproic Acid Last Dose Time 2100 Current Medications: Meds: Current Medications Acetaminophen (Tylenol) 650 mg PRN Q6HRS PRN PO PAIN / TEMP; Start 03/29/18 at 16:30; Status Cancel Multi-Ingredient Ointment (Analgesic [place]) 1 evan PRN QID PRN TP MUSCLE PAIN; Start 03/29/18 at 16:30 Al Hydroxide/Mg Hydroxide (Mylanta Plus Xs) 15 ml PRN AFTMEALHC PRN PO DYSPEPSIA; Start 03/29/18 at 16:30 Magnesium Hydroxide (Milk Of Magnesia) 2,400 mg PRN QHS PRN PO CONSTIPATION; Start 03/29/18 at 16:30 Albuterol Sulfate (Ventolin Hfa) 1 puff PRN Q6HRS PRN INH SHORTNESS OF BREATH; Start 03/29/18 at 17:00; Status UNV Atorvastatin Calcium (Lipitor) 20 mg QHS PO Last administered on 04/21/18at 19: 25; Start 03/29/18 at 21:00 Vitamin D (Vitamin D3) 50,000 unit WEEKLY PO Last administered on 04/17/18at 07: 38; Start 04/03/18 at 09:00 Cyanocobalamin (Vitamin B-12) 1,000 mcg DAILY PO Last administered on at 08:44; Start 03/30/18 at 09:00 Diclofenac Sodium (Voltaren) 1 evan PRN Q12HR PRN TP PAIN; Start 03/29/18 at 17: 00 Al Hydroxide/Mg Hydroxide (Mylanta Plus Xs) 15 ml PRN Q6HRS PRN PO DYSPEPSIA; Start 03/29/18 at 17:00; Status Cancel Multivitamins/ Calcium (Thera-M Plus) 1 tab DAILY PO Last administered on at 08:44; Start 03/30/18 at 09:00 Lactobacillus Rhamnosus (Culturelle) 1 cap BID PO Last administered on 19:24; Start 03/29/18 at 21:00 Senna/Docusate Sodium (Senna Plus) 1 tab BID PO Last administered on 04/21/18 19:24; Start 03/29/18 at 21:00 Acetaminophen (Tylenol) 500 mg PRN Q4HRS PRN PO PAIN / TEMP Last administered on 04/16/18 20:30; Start 03/29/18 at 17:45 Amlodipine Besylate (Norvasc) 5 mg DAILY PO Last administered on 04/21/18 08: 43; Start 03/30/18 at 09:00 Aspirin (Aspirin Enteric Coated) 81 mg DAILY PO Last administered on 04/21/18 08:44; Start 03/30/18 at 09:00 Bisacodyl (Dulcolax Supp) 10 mg PRN DAILY PRN ND CONSTIPATION; Start 03/29/18 at 17:45 Carvedilol (Coreg) 12.5 mg BIDWMEALS PO Last administered on 03/30/18 16:44; Start 03/30/18 at 08:00; Stop 03/30/18 at 17:57; Status DC Multivit/Ca Carb/ B Cmplx/FA/Prenat (Nephro-Virkam) 1 tab PRN DAILY PRN PO SUPPLEMENT; Start 03/30/18 at 09:00 Loperamide HCl (Imodium) 2 mg PRN Q2HR PRN PO DIARRHEA; Start 03/29/18 at 17:45 Non-Formulary Medication (Magnesium Hydroxide (Milk Of Magnesia)) 30 ml PRN QHS PRN PO CONSTIPATION; Start 03/29/18 at 17:00; Status UNV Memantine (Namenda) 10 mg BID PO Last administered on 04/21/18 19:24; Start at 21:00 Potassium Chloride (Klor-Con) 20 meq 3X/WEEK PO Last administered on 04/21/18 08:45; Start 03/31/18 at 09:00 Artificial Tears (Artificial Tears) 2 drop PRN QID PRN OU DRY EYE; Start at 18:00 Rivastigmine (Exelon) 1 patch DAILY TD Last administered on 6/27/18at 08:44; Start 03/30/18 at 09:00 Sodium Chloride (Saline Mist Nasal) 1 evan PRN TID PRN NS NASAL CONGESTION; Start 03/29/18 at 18:00 Warfarin Sodium (Coumadin) 3 mg DAILY16 PO Last administered on 04/05/18at 17:28 ; Start 03/29/18 at 18:00; Stop 04/05/18 at 17:37; Status DC Ondansetron HCl (Zofran Odt) 4 mg PRN Q4HRS PRN PO NAUSEA/VOMITING; Start at 17:30 Albuterol Sulfate (Ventolin) 2.5 mg PRN Q6HRS PRN NEB SHORTNESS OF BREATH; Start 03/29/18 at 18:00 Warfarin Sodium (Coumadin Per Physician) 1 each PRN DAILY PRN MC SEE COMMENTS; Start 03/29/18 at 18:00; Stop 04/21/18 at 16:18; Status DC Olanzapine (ZyPREXA ZYDIS) 2.5 mg PRN Q2HR PRN PO PSYCHOSIS Last administered on 04/18/18at 19:49; Start 03/29/18 at 19:15 Cefpodoxime Proxetil (Vantin) 100 mg BID PO Last administered on 04/05/18at 19: 24; Start 03/29/18 at 21:00; Stop 04/05/18 at 23:00; Status DC Amlodipine Besylate (Norvasc) 5 mg BID PRN PO ELEVATED BP, SEE COMMENTS Last administered on 03/30/18at 15:29; Start 03/30/18 at 15:30; Stop 04/06/18 at 19:36; Status DC Carvedilol (Coreg) 12.5 mg 1X ONCE PO Last administered on 03/30/18at 18:05; Start 03/30/18 at 18:00; Stop 03/30/18 at 18:01; Status DC Carvedilol (Coreg) 25 mg BIDWMEALS PO Last administered on 04/21/18at 17:04; Start 03/31/18 at 08:00 Quetiapine Fumarate (SEROquel) 12.5 mg 1X ONCE PO Last administered on at 18:21; Start 03/31/18 at 18:15; Stop 03/31/18 at 18:18; Status DC Quetiapine Fumarate (SEROquel) 12.5 mg BID@0900,1700 PO Last administered on at 18:03; Start 04/01/18 at 09:00; Stop 04/18/18 at 07:08; Status DC Hydroxyzine HCl (Atarax) 25 mg PRN Q2HR PRN PO PSYCHOSIS Last administered on at 19:25; Start 04/03/18 at 23:15 Warfarin Sodium (Coumadin) 4 mg DAILY PO Last administered on 04/17/18at 07:35; Start 04/06/18 at 16:00; Stop 04/17/18 at 10:17; Status DC Warfarin Sodium (Coumadin) 1 mg 1X ONCE PO Last administered on 04/05/18at 17: 45; Start 04/05/18 at 17:45; Stop 04/05/18 at 17:46; Status DC Prazosin HCl (Minipress) 1 mg HS PO Last administered on 04/05/18at 19:34; Start 04/05/18 at 21:00; Stop 04/06/18 at 18:03; Status DC Prazosin HCl (Minipress) 2 mg HS PO Last administered on 04/21/18at 19:26; Start 04/06/18 at 21:00 Furosemide (Lasix) 40 mg DAILY PO Last administered on 04/21/18at 08:44; Start 04/12/18 at 09:00 Potassium Chloride (Klor-Con) 20 meq DAILYWBKFT PO Last administered on at 08:43; Start 04/12/18 at 08:00 Warfarin Sodium (Coumadin) 4 mg DAILY16 PO Last administered on 04/21/18at 17:04 ; Start 04/18/18 at 16:00 Quetiapine Fumarate (SEROquel) 25 mg DAILY PO Last administered on 04/18/18at 07 :31; Start 04/18/18 at 09:00; Stop 04/19/18 at 07:01; Status DC Quetiapine Fumarate (SEROquel) 12.5 mg DAILYBFRSUP PO Last administered on 04/18at 17:58; Start 04/18/18 at 17:00; Stop 04/19/18 at 07:01; Status DC Quetiapine Fumarate (SEROquel) 37.5 mg DAILY PO Last administered on 04/21/18at 08:43; Start 04/19/18 at 09:00 Quetiapine Fumarate (SEROquel) 25 mg DAILYBFRSUP PO Last administered on at 17:05; Start 04/19/18 at 17:00 Divalproex Sodium (Depakote Sprinkles) 125 mg TID@0900,1300,1700 PO Last administered on 04/21/18at 17:05; Start 04/20/18 at 09:00; Stop 04/21/18 at 18:41 ; Status DC Warfarin Sodium (Coumadin Per Pharmacy) 1 each PRN DAILY PRN MC SEE COMMENTS; Start 04/21/18 at 16:30 Divalproex Sodium (Depakote Sprinkles) 250 mg TID@0900,1300,1700 PO ; Start at 09:00 Active Scripts Active Reported Hydroxyzine Hcl 25 Mg Tablet 25 Mg PO PRN Q2HR PRN Warfarin Sodium 4 Mg Tablet 4 Mg PO DAILY Seroquel (Quetiapine Fumarate) 25 Mg Tablet 12.5 Mg PO BID AT 06/1700 Prazosin Hcl 2 Mg Capsule 2 Mg PO HS Klor-Con M20 (Potassium Chloride) 20 Meq Tab.er.prt 20 Meq PO DAILYWBKFT Ondansetron Odt (Ondansetron) 4 Mg Tab.rapdis 4 Mg PO PRN Q4HRS PRN Zyprexa Zydis (Olanzapine) 5 Mg Tab.rapdis 2.5 Mg PO PRN Q2HR PRN Analgesic [place] (Methyl Salicylate/Menthol) 28 Gm Oint...g. 1 Evan TP PRN QID PRN Furosemide 40 Mg Tablet 40 Mg PO DAILY Carvedilol 25 Mg Tablet 25 Mg PO BIDWMEALS Vitamin D3 (Cholecalciferol (Vitamin D3)) 50,000 Unit Capsule 50,000 Unit PO WEEKLY Vitamin B-12 (Cyanocobalamin (Vitamin B-12)) 1,000 Mcg Tablet 1,000 Mcg PO DAILY Probiotic (Saccharomyces Boulardii) 250 Mg Capsule 250 Mg PO DAILY Norvasc (Amlodipine Besylate) 5 Mg Tablet 5 Mg PO DAILY Nephro-Vikram Tablet (Folic Acid/Vitamin B Comp W-C) 0.8 Mg Tablet 1 Tab PO DAILY PRN EXELON 9.5mg/24hr (Rivastigmine) 1 Each Patch.td24 1 Patch TD DAILY Saline Nasal [place] (Sodium Chloride) 30 Ml [place] 30 Ml NS TID Mag-Al Plus Xs Suspension (Mag Hydrox/Al Hydrox/Simeth) 30 Ml Oral.susp 15 Ml PO PRN Q6HRS PRN Potassium Chloride Oral Liquid (Potassium Chloride) 20 Meq/15 Ml Liquid 20 Meq PO 3X/WEEK Administer on Thursday, Thursday and Thursday Thera-M Tablet (Multivits,Ca,Minerals/Iron/Fa) 1 Each Tablet 1 Tab PO DAILY Namenda (Memantine Hcl) 5 Mg Tablet 10 Mg PO BID Voltaren (Diclofenac Sodium) 100 Gm Gel..gram. 1 Evan TP PRN Q12HR PRN Systane 0.3-0.4% Eye Drops (Propylene Glycol/Peg 400) 15 Ml Drops 2 Drop OU PRN QID PRN Senokot-S Tablet (Sennosides/Docusate Sodium) 1 Each Tablet 1 Tab PO BID Milk Of Magnesia (Magnesium Hydroxide) 2,400 Mg/10 Ml Oral.susp 30 Ml PO PRN QHS PRN Imodium A-D (Loperamide Hcl) 1 Mg/7.5 Ml Liquid 2 Mg PO PRN Q2HR PRN Max dose of 16mg in 24 hours Dulcolax (Bisacodyl) 10 Mg Supp.rect 10 Mg RC PRN DAILY PRN Atorvastatin Calcium 20 Mg Tablet 20 Mg PO QHS Aspir-Low (Aspirin) 81 Mg Tablet.dr 81 Mg PO DAILY Proair Hfa Inhaler (Albuterol Sulfate) 8.5 Gm Hfa.aer.ad 1 Puff INH PRN Q6HRS PRN Acetaminophen 500 Mg Tablet 500 Mg PO PRN Q4HRS PRN NTE 3000mg APAP in 24 hours from all sources I have reviewed the current psychotropics carefully including drug interactions. Risk benefit ratio favors no change other than as noted in my dictated progress note. Diagnosis: Problems: (1) Agitation (2) Acute ischemic stroke (3) Syncope (4) Hemiplegia affecting left nondominant side (5) TIA (transient ischemic attack) (6) Hypertension (7) Anxiety disorder (8) Dementia, vascular, with delusions (9) Dementia, vascular, with depression (10) Impulse control disorder (11) Acute kidney injury DEAN GARDNER MD Apr 21, 2018 20:21
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
--- NOTE | 2018-04-21 22:01 | PN ---
DATE: 04/20/2018 This is a late entry 04/20/2018 covers elements not covered in my initial note. SUBJECTIVE: I met with the patient in the evening. The patient slept 5-3/4 hours and has been yelling, arguing at times with another demented patient, cursing, kicking the doors, quite impulsive. REVIEW OF SYSTEMS: No CV, , pulmonary, eye, ENT system symptoms on review. Reliability poor. Gait unsteady in wheelchair. MENTAL STATUS EXAM: Oriented to himself. Insight, judgment, recent and remote memory, attention, concentration, fund of knowledge poor, consistent with his diagnosis mentioned in my initial note. PLAN: We will check the labs on the Depakote and then adjust to reach therapeutic level. Continue rest of the psychotropics according to the initial note. MAN Beny GARDNER MD DR: DAMIEN/rose JOB#: [id number] / [id number]
--- NOTE | 2018-04-21 23:29 | NUR ---
Behavior Intervention Response and Plan: BIRP Note: Behavior: Assumed Care of patient, patient located in Day Room at shift change. Patient exhibited the following behavior Agitated, Demanding, Delusions. Brief assessment on rounds of vital signs, medication needs, lab studies, and pain. Treatment plan problems 1 and 2. Intervention: Patient assessed and the following interventions initiated safety checks 15 Minute Checks Cognitive Assessment , Head to toe Assessment , Medications. Response: After interactions and interventions patient responded in the following manner, Irritable , Resistive ,Compliant. Continue to assess behaviors and condition will continue to monitor throughout the shift as needed. Patient educated on ADL's, and hand hygiene. Plan: Continue to monitor Master Treatment Plan for patient's progress toward short term goals of Decreased Agitation, Decreased Aggression, terminal clerk goals to return to previous living setting vs placement. Continue to assess patient for changes in above assessment. Monitor for medication needs, pain, and safety concerns. Hourly rounding performed to ensure safe environment.
[2018-04-22 05:36] VITALS: BP 131/74
[2018-04-22] MEDS: RIVASTIGMINE 9.5MG PATCH. TD SCH (07:43)
[2018-04-22] MEDS: CYANOCOBALAMIN (VITAMIN B-12) 1,000 MCG TABLET. PO SCH (07:44)
[2018-04-22] MEDS: QUEtiapine 25 MG TABLET. PO SCH ×3 (07:45→16:49)
[2018-04-22] MEDS: SENNOSIDES/DOCUSATE 8.6/50MG TABLET. PO SCH ×2 (07:45→19:47)
[2018-04-22] MEDS: LACTOBACILLUS RHAMNOSUS GG 1 CAPSULE. PO SCH ×2 (07:45→19:47)
[2018-04-22] MEDS: amLODIPine BESYLATE 5 MG TABLET PO SCH (07:45)
[2018-04-22] MEDS: FUROSEMIDE 40 MG TABLET PO SCH (07:45)
[2018-04-22] MEDS: POTASSIUM CHLORIDE 20 MEQ TABLET.ER. PO SCH (07:46)
[2018-04-22] MEDS: CARVEDILOL 12.5 MG TABLET PO SCH ×2 (07:46→16:51)
[2018-04-22] MEDS: MULTIVITAMIN with MINERAL TABLET. PO SCH (07:46)
[2018-04-22] MEDS: MEMANTINE 10 MG TABLET. PO SCH ×2 (07:47→19:47)
[2018-04-22] MEDS: ASPIRIN ENTERIC COATED 81 MG TABLET.DR. PO SCH (07:47)
[2018-04-22] MEDS: DIVALPROEX 125 MG CAP.SPRINK PO SCH ×3 (07:48→16:48)
--- NOTE | 2018-04-22 12:19 | NUR ---
Pharmacy Warfarin Dosing Note S:Pharmacy consulted to assist with anticoagulation therapy started with target INR: 2 -3 O:HUY TEAGUE is a 67 year old M with Hisory of Stroke LABS: Last INR: 2.0 Last HGB: 11.3 Last HCT: 33.7 Last PLT: 135 Last dose of 4 mg given on 04/21/18 at 1600 Previous Regimen: Coumadin 4mg po daily Vitamin K given: N Drug Interaction Changes: No A:INR is within the desired range. Target range for this patient is: 2 -3 P: Warfarin dose: Continue Coumadin 4mg po daily. Bridge Therapy: None Next INR due weekly on . Pharmacy anticoagulation service will continue to follow. SHE DAY RPH 04/22/18 [id number]
--- NOTE | 2018-04-22 14:19 | NUR ---
WALI contacted [facility] and spoke w/Benedict. WALI provided dc update w/target dc for Thursday next week. WALI will update Benedict again on Thursday.
--- NOTE | 2018-04-22 15:27 | NUR ---
Behavior Intervention Response and Plan: BIRP Note: Behavior: Assumed Care of patient, patient located in Dining Room at shift change. Patient exhibited the following behavior Calm, Compliant, Cooperative. Brief assessment on rounds of vital signs, medication needs, lab studies, and pain. Treatment plan problems dementia w/ bd and fall risk. Intervention: Patient assessed and the following interventions initiated safety checks 15 Minute Checks Head to toe Assessment , Cognitive Assessment , Medications. Response: After interactions and interventions patient responded in the following manner, Restless , interactive ,Cooperative. Continue to assess behaviors and condition will continue to monitor throughout the shift as needed. Patient educated on ADL's, and hand hygiene. Plan: Continue to monitor Master Treatment Plan for patient's progress toward short term goals of Decreased Agitation, Decreased Aggression, senior living goals to return to previous living setting vs placement. Continue to assess patient for changes in above assessment. Monitor for medication needs, pain, and safety concerns. Hourly rounding performed to ensure safe environment.
[2018-04-22 16:06] VITALS: BP 149/85
[2018-04-22] MEDS: WARFARIN 4 MG TABLET. PO SCH (16:49)
[2018-04-22] MEDS: ATORVASTATIN CALCIUM 20 MG TABLET PO SCH (19:47)
[2018-04-22] MEDS: PRAZOSIN 1 MG CAPSULE. PO SCH (19:47)
[2018-04-22] MEDS: hydrOXYzine HCL 25 MG TABLET PO PRN (19:47)
--- NOTE | 2018-04-22 20:55 | PDOC ---
Exam Note: [place] Note: Please also refer to the separate dictated note~for this date of service dictated separately.~Patient seen individually. Discussed the patient with Nursing staff reviewed the chart.~Reviewed interim history and current functioning. Reviewed vital signs,~Labs/ Radiology~and current medications noted below. Continue current treatment with the changes noted in the dictated addendum note Assessment: Vital Signs: Vital Signs Date Time Temp Pulse Resp B/P (MAP) Pulse Ox O2 Delivery O2 Flow Rate FiO2 04/22/18 19:47 66 149/85 04/22/18 16:06 98.1 16 98 Room Air I&O Intake and Output 04/22/18 06:59 Intake Total 720 ml Balance 720 ml Intake Oral 720 ml # Voids 2 # Bowel Movements 1 Labs: Laboratory Tests Test 04/22/18 08:55 Prothrombin Time 20.2 SEC (9.4-11.4) H Prothrombin Time INR 2.0 (0.9-1.1) H Current Medications: Meds: Current Medications Acetaminophen (Tylenol) 650 mg PRN Q6HRS PRN PO PAIN / TEMP; Start 03/29/18 at 16:30; Status Cancel Multi-Ingredient Ointment (Analgesic [place]) 1 evan PRN QID PRN TP MUSCLE PAIN; Start 03/29/18 at 16:30 Al Hydroxide/Mg Hydroxide (Mylanta Plus Xs) 15 ml PRN AFTMEALHC PRN PO DYSPEPSIA; Start 03/29/18 at 16:30 Magnesium Hydroxide (Milk Of Magnesia) 2,400 mg PRN QHS PRN PO CONSTIPATION; Start 03/29/18 at 16:30 Albuterol Sulfate (Ventolin Hfa) 1 puff PRN Q6HRS PRN INH SHORTNESS OF BREATH; Start 03/29/18 at 17:00; Status UNV Atorvastatin Calcium (Lipitor) 20 mg QHS PO Last administered on 04/22/18at 19: 47; Start 03/29/18 at 21:00 Vitamin D (Vitamin D3) 50,000 unit WEEKLY PO Last administered on 04/17/18at 07: 38; Start 04/03/18 at 09:00 Cyanocobalamin (Vitamin B-12) 1,000 mcg DAILY PO Last administered on at 07:44; Start 03/30/18 at 09:00 Diclofenac Sodium (Voltaren) 1 evan PRN Q12HR PRN TP PAIN; Start 03/29/18 at 17: 00 Al Hydroxide/Mg Hydroxide (Mylanta Plus Xs) 15 ml PRN Q6HRS PRN PO DYSPEPSIA; Start 03/29/18 at 17:00; Status Cancel Multivitamins/ Calcium (Thera-M Plus) 1 tab DAILY PO Last administered on 07:46; Start 03/30/18 at 09:00 Lactobacillus Rhamnosus (Culturelle) 1 cap BID PO Last administered on at 19:47; Start 03/29/18 at 21:00 Senna/Docusate Sodium (Senna Plus) 1 tab BID PO Last administered on 04/22/18at 19:47; Start 03/29/18 at 21:00 Acetaminophen (Tylenol) 500 mg PRN Q4HRS PRN PO PAIN / TEMP Last administered on 04/16/18at 20:30; Start 03/29/18 at 17:45 Amlodipine Besylate (Norvasc) 5 mg DAILY PO Last administered on 04/22/18at 07: 45; Start 03/30/18 at 09:00 Aspirin (Aspirin Enteric Coated) 81 mg DAILY PO Last administered on 04/22/18at 07:47; Start 03/30/18 at 09:00 Bisacodyl (Dulcolax Supp) 10 mg PRN DAILY PRN [place] CONSTIPATION; Start 03/29/18 at 17:45 Carvedilol (Coreg) 12.5 mg BIDWMEALS PO Last administered on 03/30/18at 16:44; Start 03/30/18 at 08:00; Stop 03/30/18 at 17:57; Status DC Multivit/Ca Carb/ B Cmplx/FA/Prenat (Nephro-Vikram) 1 tab PRN DAILY PRN PO SUPPLEMENT; Start 03/30/18 at 09:00 Loperamide HCl (Imodium) 2 mg PRN Q2HR PRN PO DIARRHEA; Start 03/29/18 at 17:45 Non-Formulary Medication (Magnesium Hydroxide (Milk Of Magnesia)) 30 ml PRN QHS PRN PO CONSTIPATION; Start 03/29/18 at 17:00; Status UNV Memantine (Namenda) 10 mg BID PO Last administered on 04/22/18at 19:47; Start at 21:00 Potassium Chloride (Klor-Con) 20 meq 3X/WEEK PO Last administered on 04/21/18at 08:45; Start 03/31/18 at 09:00 Artificial Tears (Artificial Tears) 2 drop PRN QID PRN OU DRY EYE; Start at 18:00 Rivastigmine (Exelon) 1 patch DAILY TD Last administered on 04/22/18at 07:43; Start 03/30/18 at 09:00 Sodium Chloride (Saline Mist Nasal) 1 evan PRN TID PRN NS NASAL CONGESTION; Start 03/29/18 at 18:00 Warfarin Sodium (Coumadin) 3 mg DAILY16 PO Last administered on 04/05/18at 17:28 ; Start 03/29/18 at 18:00; Stop 04/05/18 at 17:37; Status DC Ondansetron HCl (Zofran Odt) 4 mg PRN Q4HRS PRN PO NAUSEA/VOMITING; Start at 17:30 Albuterol Sulfate (Ventolin) 2.5 mg PRN Q6HRS PRN NEB SHORTNESS OF BREATH; Start 03/29/18 at 18:00 Warfarin Sodium (Coumadin Per Physician) 1 each PRN DAILY PRN MC SEE COMMENTS; Start 03/29/18 at 18:00; Stop 04/21/18 at 16:18; Status DC Olanzapine (ZyPREXA ZYDIS) 2.5 mg PRN Q2HR PRN PO PSYCHOSIS Last administered on 04/21/18at 21:58; Start 03/29/18 at 19:15 Cefpodoxime Proxetil (Vantin) 100 mg BID PO Last administered on 04/05/18at 19: 24; Start 03/29/18 at 21:00; Stop 04/05/18 at 23:00; Status DC Amlodipine Besylate (Norvasc) 5 mg BID PRN PO ELEVATED BP, SEE COMMENTS Last administered on 03/30/18at 15:29; Start 03/30/18 at 15:30; Stop 04/06/18 at 19:36; Status DC Carvedilol (Coreg) 12.5 mg 1X ONCE PO Last administered on 03/30/18at 18:05; Start 03/30/18 at 18:00; Stop 03/30/18 at 18:01; Status DC Carvedilol (Coreg) 25 mg BIDWMEALS PO Last administered on 04/22/18at 16:51; Start 03/31/18 at 08:00 Quetiapine Fumarate (SEROquel) 12.5 mg 1X ONCE PO Last administered on at 18:21; Start 03/31/18 at 18:15; Stop 03/31/18 at 18:18; Status DC Quetiapine Fumarate (SEROquel) 12.5 mg BID@0900,1700 PO Last administered on at 18:03; Start 04/01/18 at 09:00; Stop 04/18/18 at 07:08; Status DC Hydroxyzine HCl (Atarax) 25 mg PRN Q2HR PRN PO PSYCHOSIS Last administered on at 19:47; Start 04/03/18 at 23:15 Warfarin Sodium (Coumadin) 4 mg DAILY PO Last administered on 04/17/18at 07:35; Start 04/06/18 at 16:00; Stop 04/17/18 at 10:17; Status DC Warfarin Sodium (Coumadin) 1 mg 1X ONCE PO Last administered on 04/05/18at 17: 45; Start 04/05/18 at 17:45; Stop 04/05/18 at 17:46; Status DC Prazosin HCl (Minipress) 1 mg HS PO Last administered on 04/05/18at 19:34; Start 04/05/18 at 21:00; Stop 04/06/18 at 18:03; Status DC Prazosin HCl (Minipress) 2 mg HS PO Last administered on 04/22/18at 19:47; Start 04/06/18 at 21:00 Furosemide (Lasix) 40 mg DAILY PO Last administered on 04/22/18at 07:45; Start 04/12/18 at 09:00 Potassium Chloride (Klor-Con) 20 meq DAILYWBKFT PO Last administered on at 07:46; Start 04/12/18 at 08:00 Warfarin Sodium (Coumadin) 4 mg DAILY16 PO Last administered on 04/22/18at 16:49 ; Start 04/18/18 at 16:00 Quetiapine Fumarate (SEROquel) 25 mg DAILY PO Last administered on 04/18/18at 07 :31; Start 04/18/18 at 09:00; Stop 04/19/18 at 07:01; Status DC Quetiapine Fumarate (SEROquel) 12.5 mg DAILYBFRSUP PO Last administered on 04/18at 17:58; Start 04/18/18 at 17:00; Stop 04/19/18 at 07:01; Status DC Quetiapine Fumarate (SEROquel) 37.5 mg DAILY PO Last administered on 04/22/18at 07:45; Start 04/19/18 at 09:00; Stop 04/22/18 at 11:05; Status DC Quetiapine Fumarate (SEROquel) 25 mg DAILYBFRSUP PO Last administered on at 17:05; Start 04/19/18 at 17:00; Stop 04/22/18 at 11:06; Status DC Divalproex Sodium (Depakote Sprinkles) 125 mg TID@0900,1300,1700 PO Last administered on 04/21/18at 17:05; Start 04/20/18 at 09:00; Stop 04/21/18 at 18:41 ; Status DC Warfarin Sodium (Coumadin Per Pharmacy) 1 each PRN DAILY PRN MC SEE COMMENTS Last administered on 04/22/18at 12:19; Start 04/21/18 at 16:30 Divalproex Sodium (Depakote Sprinkles) 250 mg TID@0900,1300,1700 PO Last administered on 04/22/18at 16:48; Start 04/22/18 at 09:00 Quetiapine Fumarate (SEROquel) 50 mg DAILY PO ; Start 04/23/18 at 09:00 Quetiapine Fumarate (SEROquel) 25 mg BID@1300,1700 PO Last administered on 04/22at 16:49; Start 04/22/18 at 13:00 Active Scripts Active Reported Hydroxyzine Hcl 25 Mg Tablet 25 Mg PO PRN Q2HR PRN Warfarin Sodium 4 Mg Tablet 4 Mg PO DAILY Seroquel (Quetiapine Fumarate) 25 Mg Tablet 12.5 Mg PO BID AT 06/1700 Prazosin Hcl 2 Mg Capsule 2 Mg PO HS Klor-Con M20 (Potassium Chloride) 20 Meq Tab.er.prt 20 Meq PO DAILYWBKFT Ondansetron Odt (Ondansetron) 4 Mg Tab.rapdis 4 Mg PO PRN Q4HRS PRN Zyprexa Zydis (Olanzapine) 5 Mg Tab.rapdis 2.5 Mg PO PRN Q2HR PRN Analgesic [place] (Methyl Salicylate/Menthol) 28 Gm Oint...g. 1 Evan TP PRN QID PRN Furosemide 40 Mg Tablet 40 Mg PO DAILY Carvedilol 25 Mg Tablet 25 Mg PO BIDWMEALS Vitamin D3 (Cholecalciferol (Vitamin D3)) 50,000 Unit Capsule 50,000 Unit PO WEEKLY Vitamin B-12 (Cyanocobalamin (Vitamin B-12)) 1,000 Mcg Tablet 1,000 Mcg PO DAILY Probiotic (Saccharomyces Boulardii) 250 Mg Capsule 250 Mg PO DAILY Norvasc (Amlodipine Besylate) 5 Mg Tablet 5 Mg PO DAILY Nephro-Vikram Tablet (Folic Acid/Vitamin B Comp W-C) 0.8 Mg Tablet 1 Tab PO DAILY PRN EXELON 9.5mg/24hr (Rivastigmine) 1 Each Patch.td24 1 Patch TD DAILY Saline Nasal [place] (Sodium Chloride) 30 Ml [place] 30 Ml NS TID Mag-Al Plus Xs Suspension (Mag Hydrox/Al Hydrox/Simeth) 30 Ml Oral.susp 15 Ml PO PRN Q6HRS PRN Potassium Chloride Oral Liquid (Potassium Chloride) 20 Meq/15 Ml Liquid 20 Meq PO 3X/WEEK Administer on Thursday, Thursday and Thursday Thera-M Tablet (Multivits,Ca,Minerals/Iron/Fa) 1 Each Tablet 1 Tab PO DAILY Namenda (Memantine Hcl) 5 Mg Tablet 10 Mg PO BID Voltaren (Diclofenac Sodium) 100 Gm Gel..gram. 1 Evan TP PRN Q12HR PRN Systane 0.3-0.4% Eye Drops (Propylene Glycol/Peg 400) 15 Ml Drops 2 Drop OU PRN QID PRN Senokot-S Tablet (Sennosides/Docusate Sodium) 1 Each Tablet 1 Tab PO BID Milk Of Magnesia (Magnesium Hydroxide) 2,400 Mg/10 Ml Oral.susp 30 Ml PO PRN QHS PRN Imodium A-D (Loperamide Hcl) 1 Mg/7.5 Ml Liquid 2 Mg PO PRN Q2HR PRN Max dose of 16mg in 24 hours Dulcolax (Bisacodyl) 10 Mg Supp.rect 10 Mg RC PRN DAILY PRN Atorvastatin Calcium 20 Mg Tablet 20 Mg PO QHS Aspir-Low (Aspirin) 81 Mg Tablet.dr 81 Mg PO DAILY Proair Hfa Inhaler (Albuterol Sulfate) 8.5 Gm Hfa.aer.ad 1 Puff INH PRN Q6HRS PRN Acetaminophen 500 Mg Tablet 500 Mg PO PRN Q4HRS PRN NTE 3000mg APAP in 24 hours from all sources I have reviewed the current psychotropics carefully including drug interactions. Risk benefit ratio favors no change other than as noted in my dictated progress note. Diagnosis: Problems: (1) Agitation (2) Acute ischemic stroke (3) Syncope (4) Hemiplegia affecting left nondominant side (5) TIA (transient ischemic attack) (6) Hypertension (7) Anxiety disorder (8) Dementia, vascular, with delusions (9) Dementia, vascular, with depression (10) Impulse control disorder (11) Acute kidney injury DEAN GARDNER MD Apr 22, 2018 20:55
--- NOTE | 2018-04-22 23:40 | NUR ---
Behavior Intervention Response and Plan: BIRP Note: Behavior: Assumed Care of patient, patient located in Day Room at shift change. Patient exhibited the following behavior Restless, Calm, Delusions. Brief assessment on rounds of vital signs, medication needs, lab studies, and pain. Treatment plan problems 1 and 2. Intervention: Patient assessed and the following interventions initiated safety checks 15 Minute Checks Cognitive Assessment , Head to toe Assessment , Medications. Response: After interactions and interventions patient responded in the following manner, Calm , Compliant ,Cooperative. Continue to assess behaviors and condition will continue to monitor throughout the shift as needed. Patient educated on ADL's, and hand hygiene. Plan: Continue to monitor Master Treatment Plan for patient's progress toward short term goals of Decreased Agitation, Decreased Aggression, prison goals to return to previous living setting vs placement. Continue to assess patient for changes in above assessment. Monitor for medication needs, pain, and safety concerns. Hourly rounding performed to ensure safe environment.
[2018-04-23 06:00] VITALS: BP 146/86
[2018-04-23] MEDS: SENNOSIDES/DOCUSATE 8.6/50MG TABLET. PO SCH ×2 (07:30→20:10)
[2018-04-23] MEDS: RIVASTIGMINE 9.5MG PATCH. TD SCH (07:30)
[2018-04-23] MEDS: ASPIRIN ENTERIC COATED 81 MG TABLET.DR. PO SCH (07:30)
[2018-04-23] MEDS: CYANOCOBALAMIN (VITAMIN B-12) 1,000 MCG TABLET. PO SCH (07:30)
[2018-04-23] MEDS: DIVALPROEX 125 MG CAP.SPRINK PO SCH ×3 (07:30→17:36)
[2018-04-23] MEDS: MEMANTINE 10 MG TABLET. PO SCH ×2 (07:31→20:10)
[2018-04-23] MEDS: amLODIPine BESYLATE 5 MG TABLET PO SCH (07:31)
[2018-04-23] MEDS: POTASSIUM CHLORIDE 20 MEQ TABLET.ER. PO SCH ×2 (07:32→07:35)
[2018-04-23] MEDS: MULTIVITAMIN with MINERAL TABLET. PO SCH (07:32)
[2018-04-23] MEDS: LACTOBACILLUS RHAMNOSUS GG 1 CAPSULE. PO SCH ×2 (07:32→20:10)
[2018-04-23] MEDS: FUROSEMIDE 40 MG TABLET PO SCH (07:33)
[2018-04-23] MEDS: CARVEDILOL 12.5 MG TABLET PO SCH ×2 (07:33→17:36)
[2018-04-23] MEDS: QUEtiapine 50 MG TABLET. PO SCH (07:37)
--- NOTE | 2018-04-23 10:49 | NUR ---
Behavior Intervention Response and Plan: BIRP Note: Behavior: Assumed Care of patient, patient located in Dining Room at shift change. Patient exhibited the following behavior Calm, Wandering, Compliant. Brief assessment on rounds of vital signs, medication needs, lab studies, and pain. Treatment plan problems . Intervention: Patient assessed and the following interventions initiated safety checks 15 Minute Checks Cognitive Assessment , Head to toe Assessment , Medications. Response: After interactions and interventions patient responded in the following manner, Calm , Compliant ,Cooperative. Continue to assess behaviors and condition will continue to monitor throughout the shift as needed. Patient educated on ADL's, and hand hygiene. 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 Continue to assess patient for changes in above assessment. Monitor for medication needs, pain, and safety concerns. Hourly rounding performed to ensure safe environment.
[2018-04-23] MEDS: QUEtiapine 25 MG TABLET. PO SCH ×2 (13:46→17:36)
[2018-04-23 15:57] VITALS: BP 121/75
--- NOTE | 2018-04-23 16:07 | NUR ---
pt up in [place] for meals. has been in pleasant spirits. compliant with meds and cares.
[2018-04-23] MEDS: WARFARIN 4 MG TABLET. PO SCH (17:35)
--- NOTE | 2018-04-23 20:02 | PDOC ---
Exam Note: [place] Note: Please also refer to the separate dictated note~for this date of service dictated separately.~Patient seen individually. Discussed the patient with Nursing staff reviewed the chart.~Reviewed interim history and current functioning. Reviewed vital signs,~Labs/ Radiology~and current medications noted below. Continue current treatment with the changes noted in the dictated addendum note Assessment: Vital Signs: Vital Signs Date Time Temp Pulse Resp B/P (MAP) Pulse Ox O2 Delivery O2 Flow Rate FiO2 04/23/18 17:36 72 121/75 04/23/18 15:57 98.7 16 97 04/22/18 16:06 Room Air I&O Intake and Output 04/23/18 06:59 Intake Total 1080 ml Balance 1080 ml Intake Oral 1080 ml # Voids 1 # Bowel Movements 5 Current Medications: Meds: Current Medications Acetaminophen (Tylenol) 650 mg PRN Q6HRS PRN PO PAIN / TEMP; Start 03/29/18 at 16:30; Status Cancel Multi-Ingredient Ointment (Analgesic [place]) 1 evan PRN QID PRN TP MUSCLE PAIN; Start 03/29/18 at 16:30 Al Hydroxide/Mg Hydroxide (Mylanta Plus Xs) 15 ml PRN AFTMEALHC PRN PO DYSPEPSIA; Start 03/29/18 at 16:30 Magnesium Hydroxide (Milk Of Magnesia) 2,400 mg PRN QHS PRN PO CONSTIPATION; Start 03/29/18 at 16:30 Albuterol Sulfate (Ventolin Hfa) 1 puff PRN Q6HRS PRN INH SHORTNESS OF BREATH; Start 03/29/18 at 17:00; Status UNV Atorvastatin Calcium (Lipitor) 20 mg QHS PO Last administered on 04/22/18at 19: 47; Start 03/29/18 at 21:00 Vitamin D (Vitamin D3) 50,000 unit WEEKLY PO Last administered on 04/17/18at 07: 38; Start 04/03/18 at 09:00 Cyanocobalamin (Vitamin B-12) 1,000 mcg DAILY PO Last administered on at 07:30; Start 03/30/18 at 09:00 Diclofenac Sodium (Voltaren) 1 evan PRN Q12HR PRN TP PAIN; Start 03/29/18 at 17: 00 Al Hydroxide/Mg Hydroxide (Mylanta Plus Xs) 15 ml PRN Q6HRS PRN PO DYSPEPSIA; Start 03/29/18 at 17:00; Status Cancel Multivitamins/ Calcium (Thera-M Plus) 1 tab DAILY PO Last administered on 07:32; Start 03/30/18 at 09:00 Lactobacillus Rhamnosus (Culturelle) 1 cap BID PO Last administered on 07:32; Start 03/29/18 at 21:00 Senna/Docusate Sodium (Senna Plus) 1 tab BID PO Last administered on 04/23/18 07:30; Start 03/29/18 at 21:00 Acetaminophen (Tylenol) 500 mg PRN Q4HRS PRN PO PAIN / TEMP Last administered on 04/16/18at 20:30; Start 03/29/18 at 17:45 Amlodipine Besylate (Norvasc) 5 mg DAILY PO Last administered on 04/23/18 07: 31; Start 03/30/18 at 09:00 Aspirin (Aspirin Enteric Coated) 81 mg DAILY PO Last administered on 04/23/18at 07:30; Start 03/30/18 at 09:00 Bisacodyl (Dulcolax Supp) 10 mg PRN DAILY PRN [place] CONSTIPATION; Start 03/29/18 at 17:45 Carvedilol (Coreg) 12.5 mg BIDWMEALS PO Last administered on 03/30/18at 16:44; Start 03/30/18 at 08:00; Stop 03/30/18 at 17:57; Status DC Multivit/Ca Carb/ B Cmplx/FA/Prenat (Nephro-Vikram) 1 tab PRN DAILY PRN PO SUPPLEMENT; Start 03/30/18 at 09:00 Loperamide HCl (Imodium) 2 mg PRN Q2HR PRN PO DIARRHEA; Start 03/29/18 at 17:45 Non-Formulary Medication (Magnesium Hydroxide (Milk Of Magnesia)) 30 ml PRN QHS PRN PO CONSTIPATION; Start 03/29/18 at 17:00; Status UNV Memantine (Namenda) 10 mg BID PO Last administered on 04/23/18at 07:31; Start at 21:00 Potassium Chloride (Klor-Con) 20 meq 3X/WEEK PO Last administered on 04/23/18at 07:35; Start 03/31/18 at 09:00 Artificial Tears (Artificial Tears) 2 drop PRN QID PRN OU DRY EYE; Start at 18:00 Rivastigmine (Exelon) 1 patch DAILY TD Last administered on 04/23/18at 07:30; Start 03/30/18 at 09:00 Sodium Chloride (Saline Mist Nasal) 1 evan PRN TID PRN NS NASAL CONGESTION; Start 03/29/18 at 18:00 Warfarin Sodium (Coumadin) 3 mg DAILY16 PO Last administered on 04/05/18at 17:28 ; Start 03/29/18 at 18:00; Stop 04/05/18 at 17:37; Status DC Ondansetron HCl (Zofran Odt) 4 mg PRN Q4HRS PRN PO NAUSEA/VOMITING; Start at 17:30 Albuterol Sulfate (Ventolin) 2.5 mg PRN Q6HRS PRN NEB SHORTNESS OF BREATH; Start 03/29/18 at 18:00 Warfarin Sodium (Coumadin Per Physician) 1 each PRN DAILY PRN MC SEE COMMENTS; Start 03/29/18 at 18:00; Stop 04/21/18 at 16:18; Status DC Olanzapine (ZyPREXA ZYDIS) 2.5 mg PRN Q2HR PRN PO PSYCHOSIS Last administered on 04/21/18at 21:58; Start 03/29/18 at 19:15 Cefpodoxime Proxetil (Vantin) 100 mg BID PO Last administered on 04/05/18at 19: 24; Start 03/29/18 at 21:00; Stop 04/05/18 at 23:00; Status DC Amlodipine Besylate (Norvasc) 5 mg BID PRN PO ELEVATED BP, SEE COMMENTS Last administered on 03/30/18at 15:29; Start 03/30/18 at 15:30; Stop 04/06/18 at 19:36; Status DC Carvedilol (Coreg) 12.5 mg 1X ONCE PO Last administered on 03/30/18at 18:05; Start 03/30/18 at 18:00; Stop 03/30/18 at 18:01; Status DC Carvedilol (Coreg) 25 mg BIDWMEALS PO Last administered on 04/23/18 17:36; Start 03/31/18 at 08:00 Quetiapine Fumarate (SEROquel) 12.5 mg 1X ONCE PO Last administered on at 18:21; Start 03/31/18 at 18:15; Stop 03/31/18 at 18:18; Status DC Quetiapine Fumarate (SEROquel) 12.5 mg BID@0900,1700 PO Last administered on 18:03; Start 04/01/18 at 09:00; Stop 04/18/18 at 07:08; Status DC Hydroxyzine HCl (Atarax) 25 mg PRN Q2HR PRN PO PSYCHOSIS Last administered on 19:47; Start 04/03/18 at 23:15 Warfarin Sodium (Coumadin) 4 mg DAILY PO Last administered on 04/17/18 07:35; Start 04/06/18 at 16:00; Stop 04/17/18 at 10:17; Status DC Warfarin Sodium (Coumadin) 1 mg 1X ONCE PO Last administered on 04/05/18at 17: 45; Start 04/05/18 at 17:45; Stop 04/05/18 at 17:46; Status DC Prazosin HCl (Minipress) 1 mg HS PO Last administered on 04/05/18 19:34; Start 04/05/18 at 21:00; Stop 04/06/18 at 18:03; Status DC Prazosin HCl (Minipress) 2 mg HS PO Last administered on 04/22/18 19:47; Start 04/06/18 at 21:00 Furosemide (Lasix) 40 mg DAILY PO Last administered on 04/23/18at 07:33; Start 04/12/18 at 09:00 Potassium Chloride (Klor-Con) 20 meq DAILYWBKFT PO Last administered on 07:32; Start 04/12/18 at 08:00 Warfarin Sodium (Coumadin) 4 mg DAILY16 PO Last administered on 04/23/18 17:35 ; Start 04/18/18 at 16:00 Quetiapine Fumarate (SEROquel) 25 mg DAILY PO Last administered on 04/18/18at 07 :31; Start 04/18/18 at 09:00; Stop 04/19/18 at 07:01; Status DC Quetiapine Fumarate (SEROquel) 12.5 mg DAILYBFRSUP PO Last administered on 04/18at 17:58; Start 04/18/18 at 17:00; Stop 04/19/18 at 07:01; Status DC Quetiapine Fumarate (SEROquel) 37.5 mg DAILY PO Last administered on 04/22/18at 07:45; Start 04/19/18 at 09:00; Stop 04/22/18 at 11:05; Status DC Quetiapine Fumarate (SEROquel) 25 mg DAILYBFRSUP PO Last administered on at 17:05; Start 04/19/18 at 17:00; Stop 04/22/18 at 11:06; Status DC Divalproex Sodium (Depakote Sprinkles) 125 mg TID@0900,1300,1700 PO Last administered on 04/21/18at 17:05; Start 04/20/18 at 09:00; Stop 04/21/18 at 18:41 ; Status DC Warfarin Sodium (Coumadin Per Pharmacy) 1 each PRN DAILY PRN MC SEE COMMENTS Last administered on 04/22/18at 12:19; Start 04/21/18 at 16:30 Divalproex Sodium (Depakote Sprinkles) 250 mg TID@0900,1300,1700 PO Last administered on 04/23/18at 17:36; Start 04/22/18 at 09:00 Quetiapine Fumarate (SEROquel) 50 mg DAILY PO Last administered on 04/23/18at 07 :37; Start 04/23/18 at 09:00 Quetiapine Fumarate (SEROquel) 25 mg BID@1300,1700 PO Last administered on 04/23at 17:36; Start 04/22/18 at 13:00 Active Scripts Active Reported Hydroxyzine Hcl 25 Mg Tablet 25 Mg PO PRN Q2HR PRN Warfarin Sodium 4 Mg Tablet 4 Mg PO DAILY Seroquel (Quetiapine Fumarate) 25 Mg Tablet 12.5 Mg PO BID AT 06/1700 Prazosin Hcl 2 Mg Capsule 2 Mg PO HS Klor-Con M20 (Potassium Chloride) 20 Meq Tab.er.prt 20 Meq PO DAILYWBKFT Ondansetron Odt (Ondansetron) 4 Mg Tab.rapdis 4 Mg PO PRN Q4HRS PRN Zyprexa Zydis (Olanzapine) 5 Mg Tab.rapdis 2.5 Mg PO PRN Q2HR PRN Analgesic [place] (Methyl Salicylate/Menthol) 28 Gm Oint...g. 1 Evan TP PRN QID PRN Furosemide 40 Mg Tablet 40 Mg PO DAILY Carvedilol 25 Mg Tablet 25 Mg PO BIDWMEALS Vitamin D3 (Cholecalciferol (Vitamin D3)) 50,000 Unit Capsule 50,000 Unit PO WEEKLY Vitamin B-12 (Cyanocobalamin (Vitamin B-12)) 1,000 Mcg Tablet 1,000 Mcg PO DAILY Probiotic (Saccharomyces Boulardii) 250 Mg Capsule 250 Mg PO DAILY Norvasc (Amlodipine Besylate) 5 Mg Tablet 5 Mg PO DAILY Nephro-Vikram Tablet (Folic Acid/Vitamin B Comp W-C) 0.8 Mg Tablet 1 Tab PO DAILY PRN EXELON 9.5mg/24hr (Rivastigmine) 1 Each Patch.td24 1 Patch TD DAILY Saline Nasal [place] (Sodium Chloride) 30 Ml [place] 30 Ml NS TID Mag-Al Plus Xs Suspension (Mag Hydrox/Al Hydrox/Simeth) 30 Ml Oral.susp 15 Ml PO PRN Q6HRS PRN Potassium Chloride Oral Liquid (Potassium Chloride) 20 Meq/15 Ml Liquid 20 Meq PO 3X/WEEK Administer on Thursday, Thursday and Thursday Thera-M Tablet (Multivits,Ca,Minerals/Iron/Fa) 1 Each Tablet 1 Tab PO DAILY Namenda (Memantine Hcl) 5 Mg Tablet 10 Mg PO BID Voltaren (Diclofenac Sodium) 100 Gm Gel..gram. 1 Evan TP PRN Q12HR PRN Systane 0.3-0.4% Eye Drops (Propylene Glycol/Peg 400) 15 Ml Drops 2 Drop OU PRN QID PRN Senokot-S Tablet (Sennosides/Docusate Sodium) 1 Each Tablet 1 Tab PO BID Milk Of Magnesia (Magnesium Hydroxide) 2,400 Mg/10 Ml Oral.susp 30 Ml PO PRN QHS PRN Imodium A-D (Loperamide Hcl) 1 Mg/7.5 Ml Liquid 2 Mg PO PRN Q2HR PRN Max dose of 16mg in 24 hours Dulcolax (Bisacodyl) 10 Mg Supp.rect 10 Mg RC PRN DAILY PRN Atorvastatin Calcium 20 Mg Tablet 20 Mg PO QHS Aspir-Low (Aspirin) 81 Mg Tablet.dr 81 Mg PO DAILY Proair Hfa Inhaler (Albuterol Sulfate) 8.5 Gm Hfa.aer.ad 1 Puff INH PRN Q6HRS PRN Acetaminophen 500 Mg Tablet 500 Mg PO PRN Q4HRS PRN NTE 3000mg APAP in 24 hours from all sources I have reviewed the current psychotropics carefully including drug interactions. Risk benefit ratio favors no change other than as noted in my dictated progress note. Diagnosis: Problems: (1) Agitation (2) Acute ischemic stroke (3) Syncope (4) Hemiplegia affecting left nondominant side (5) TIA (transient ischemic attack) (6) Hypertension (7) Anxiety disorder (8) Dementia, vascular, with delusions (9) Dementia, vascular, with depression (10) Impulse control disorder (11) Acute kidney injury DEAN GARDNER MD Apr 23, 2018 20:02
[2018-04-23] MEDS: ATORVASTATIN CALCIUM 20 MG TABLET PO SCH (20:10)
[2018-04-23] MEDS: PRAZOSIN 1 MG CAPSULE. PO SCH (20:15)
--- NOTE | 2018-04-23 22:51 | NUR ---
Nursing Note Patient calm and compliant with assessment and medications. Patient in bed for shift assessment. Patient drowsy at this time. Patient pleasant and interactive during assessment. Patient remains in bed sleeping at this time.
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
--- NOTE | 2018-04-24 00:13 | PN ---
DATE: 04/22/2018 PSYCHIATRIC PROGRESS NOTE This is a late entry 04/22/2018 covers elements not covered in my initial note. SUBJECTIVE: I met with the patient in the evening, staffed at a treatment team meeting with the entire team in the morning. Appetite 100%, sleeping average 7 hours, slept 5-3/4 hours previous evening, agitated, somewhat hostile, angry, yelling at times. REVIEW OF SYSTEMS: Ambulation impaired, in wheelchair. No CV, , pulmonary, eye, ENT system symptoms on review. Reliability poor. MENTAL STATUS EXAM: Oriented to himself. Insight, judgment, recent and remote memory, attention, concentration, fund of knowledge poor, consistent with his diagnosis mentioned in my initial note. PLAN: Increase Seroquel from 37.5 mg in the morning to 50 mg in the morning and 25 mg at 1 p.m. will be continued. Maintain rest per the initial note. Depakote has been adjusted. Repeat labs on 04/24/2018 and adjust to reach therapeutic level. Rest unchanged. MAN Beny GARDNER MD DR: DAMIEN/rose JOB#: [id number] / [id number]
[2018-04-24 05:59] VITALS: BP 171/97
[2018-04-24 07:41] LABS: BASO % 1 % (0-3); EOS # 0.3 x10^3/uL (0.0-0.7); EOS % 6 % (0-3); HEMATOCRIT 33.8 % (39.0-53.0); HEMOGLOBIN 11.3 g/dL (13.0-17.5); LYMPH # 1.9 x10^3/uL (1.0-4.8); LYMPH % 43 % (24-48); MEAN CORPUSCULAR HEMOGLOBIN 31 pg (25-35); MEAN CORPUSCULAR HGB CONC 34 g/dL (31-37); MEAN CORPUSCULAR VOLUME 92 fL (79-100); MONO # 0.4 x10^3/uL (0.0-1.1); MONO % 10 % (0-9); NEUT # 1.7 x10^3uL (1.8-7.7); NEUT % 40 % (31-73); PLATELET COUNT 145 x10^3/uL (140-400); RED BLOOD COUNT 3.66 x10^6/uL (4.30-5.70); RED CELL DISTRIBUTION WIDTH 13.9 % (11.5-14.5); WHITE BLOOD COUNT 4.3 x10^3/uL (4.0-11.0)
[2018-04-24] MEDS: amLODIPine BESYLATE 5 MG TABLET PO SCH (07:59)
[2018-04-24] MEDS: CHOLECALCIFEROL (VITAMIN D3) 50,000 UNIT CAPSULE PO SCH (07:59)
[2018-04-24] MEDS: ASPIRIN ENTERIC COATED 81 MG TABLET.DR. PO SCH (07:59)
[2018-04-24] MEDS: RIVASTIGMINE 9.5MG PATCH. TD SCH (07:59)
[2018-04-24] MEDS: QUEtiapine 50 MG TABLET. PO SCH (07:59)
[2018-04-24] MEDS: SENNOSIDES/DOCUSATE 8.6/50MG TABLET. PO SCH ×2 (07:59→19:55)
[2018-04-24] MEDS: MEMANTINE 10 MG TABLET. PO SCH ×2 (07:59→19:55)
[2018-04-24] MEDS: MULTIVITAMIN with MINERAL TABLET. PO SCH (07:59)
[2018-04-24] MEDS: FUROSEMIDE 40 MG TABLET PO SCH (07:59)
[2018-04-24] MEDS: CYANOCOBALAMIN (VITAMIN B-12) 1,000 MCG TABLET. PO SCH (08:00)
[2018-04-24] MEDS: LACTOBACILLUS RHAMNOSUS GG 1 CAPSULE. PO SCH ×2 (08:00→19:48)
[2018-04-24] MEDS: DIVALPROEX 125 MG CAP.SPRINK PO SCH ×3 (08:00→18:37)
[2018-04-24] MEDS: POTASSIUM CHLORIDE 20 MEQ TABLET.ER. PO SCH (08:00)
[2018-04-24] MEDS: CARVEDILOL 12.5 MG TABLET PO SCH ×2 (08:00→18:37)
[2018-04-24 08:21] LABS: ALBUMIN 2.9 g/dL (3.4-5.0); ALBUMIN/GLOBULIN RATIO 0.8 (1.0-1.7); ALK PHOS 84 U/L (46-116); ALT (SGPT) 24 U/L (16-63); ANION GAP 7 (6-14); AST (SGOT) 16 U/L (15-37); BLOOD UREA NITROGEN 24 mg/dL (8-26); BUN/CREATININE RATIO 16 (6-20); CARBON DIOXIDE 28 mmol/L (21-32); CHLORIDE 105 mmol/L (98-107); CREATININE 1.5 mg/dL (0.7-1.3); GFR 56.3; GLUCOSE 131 mg/dL (70-99); POTASSIUM 4.5 mmol/L (3.5-5.1); SODIUM 140 mmol/L (136-145); TOTAL BILIRUBIN 0.4 mg/dL (0.2-1.0); TOTAL PROTEIN 6.5 g/dL (6.4-8.2)
[2018-04-24 08:27] LABS: VAL ACID 41 mcg/mL (50-100)
--- NOTE | 2018-04-24 09:26 | NUR ---
Behavior Intervention Response and Plan: BIRP Note: Behavior: Assumed Care of patient, patient located in Dining Room at shift change. Patient exhibited the following behavior Calm, Wandering, Compliant. Brief assessment on rounds of vital signs, medication needs, lab studies, and pain. Treatment plan problems . Intervention: Patient assessed and the following interventions initiated safety checks 15 Minute Checks Cognitive Assessment , Head to toe Assessment , Medications. Response: After interactions and interventions patient responded in the following manner, Calm , Compliant ,Cooperative. Continue to assess behaviors and condition will continue to monitor throughout the shift as needed. Patient educated on ADL's, and hand hygiene. Plan: Continue to monitor Master Treatment Plan for patient's progress toward short term goals of Decreased Agitation, Decreased Aggression, buttermaker continuous churn goals to return to previous living setting vs placement. Continue to assess patient for changes in above assessment. Monitor for medication needs, pain, and safety concerns. Hourly rounding performed to ensure safe environment.
[2018-04-24] MEDS: QUEtiapine 25 MG TABLET. PO SCH ×2 (13:25→18:37)
--- NOTE | 2018-04-24 16:00 | NUR ---
pt up in wc. yelled out for short while in am. has been propelling self up and down halls and has been outside on patio. compliant with meds and cares.
[2018-04-24 16:18] VITALS: BP 142/84
[2018-04-24] MEDS: WARFARIN 4 MG TABLET. PO SCH (18:36)
[2018-04-24] MEDS: PRAZOSIN 1 MG CAPSULE. PO SCH (19:55)
[2018-04-24] MEDS: ATORVASTATIN CALCIUM 20 MG TABLET PO SCH (19:55)
--- NOTE | 2018-04-24 22:30 | PDOC ---
Exam Note: [place] Note: Please also refer to the separate dictated note~for this date of service dictated separately.~Patient seen individually. Discussed the patient with Nursing staff reviewed the chart.~Reviewed interim history and current functioning. Reviewed vital signs,~Labs/ Radiology~and current medications noted below. Continue current treatment with the changes noted in the dictated addendum note Assessment: Vital Signs: Vital Signs Date Time Temp Pulse Resp B/P (MAP) Pulse Ox O2 Delivery O2 Flow Rate FiO2 04/24/18 19:55 75 134/78 04/24/18 16:18 97.8 18 97 04/22/18 16:06 Room Air I&O Intake and Output 04/24/18 06:59 Intake Total 1320 ml Balance 1320 ml Intake Oral 1320 ml # Bowel Movements 1 Labs: Laboratory Tests Test 04/24/18 06:50 White Blood Count 4.3 x10^3/uL (4.0-11.0) Red Blood Count 3.66 x10^6/uL (4.30-5.70) L Hemoglobin 11.3 g/dL (13.0-17.5) L Hematocrit 33.8 % (39.0-53.0) L Mean Corpuscular Volume 92 fL (79-100) Mean Corpuscular Hemoglobin 31 pg (25-35) Mean Corpuscular Hemoglobin Concent 34 g/dL (31-37) Red Cell Distribution Width 13.9 % (11.5-14.5) Platelet Count 145 x10^3/uL (140-400) Neutrophils (%) (Auto) 40 % (31-73) Lymphocytes (%) (Auto) 43 % (24-48) Monocytes (%) (Auto) 10 % (0-9) H Eosinophils (%) (Auto) 6 % (0-3) H Basophils (%) (Auto) 1 % (0-3) Neutrophils # (Auto) 1.7 x10^3uL (1.8-7.7) L Lymphocytes # (Auto) 1.9 x10^3/uL (1.0-4.8) Monocytes # (Auto) 0.4 x10^3/uL (0.0-1.1) Eosinophils # (Auto) 0.3 x10^3/uL (0.0-0.7) Basophils # (Auto) 0.0 x10^3/uL (0.0-0.2) Sodium Level 140 mmol/L (136-145) Potassium Level 4.5 mmol/L (3.5-5.1) Chloride Level 105 mmol/L (98-107) Carbon Dioxide Level 28 mmol/L (21-32) Anion Gap 7 (6-14) Blood Urea Nitrogen 24 mg/dL (8-26) Creatinine 1.5 mg/dL (0.7-1.3) H Estimated GFR (Cockcroft-Gault) 56.3 BUN/Creatinine Ratio 16 (6-20) Glucose Level 131 mg/dL (70-99) H Calcium Level 9.0 mg/dL (8.5-10.1) Total Bilirubin 0.4 mg/dL (0.2-1.0) Aspartate Amino Transferase (AST) 16 U/L (15-37) Alanine Aminotransferase (ALT) 24 U/L (16-63) Alkaline Phosphatase 84 U/L (46-116) Total Protein 6.5 g/dL (6.4-8.2) Albumin 2.9 g/dL (3.4-5.0) L Albumin/Globulin Ratio 0.8 (1.0-1.7) L Valproic Acid Level 41 mcg/mL (50-100) L Valproic Acid Last Dose Date 04/23/18 Valproic Acid Last Dose Time 2100 Current Medications: Meds: Current Medications Acetaminophen (Tylenol) 650 mg PRN Q6HRS PRN PO PAIN / TEMP; Start 03/29/18 at 16:30; Status Cancel Multi-Ingredient Ointment (Analgesic [place]) 1 evan PRN QID PRN TP MUSCLE PAIN; Start 03/29/18 at 16:30 Al Hydroxide/Mg Hydroxide (Mylanta Plus Xs) 15 ml PRN AFTMEALHC PRN PO DYSPEPSIA; Start 03/29/18 at 16:30 Magnesium Hydroxide (Milk Of Magnesia) 2,400 mg PRN QHS PRN PO CONSTIPATION; Start 03/29/18 at 16:30 Albuterol Sulfate (Ventolin Hfa) 1 puff PRN Q6HRS PRN INH SHORTNESS OF BREATH; Start 03/29/18 at 17:00; Status UNV Atorvastatin Calcium (Lipitor) 20 mg QHS PO Last administered on 6/30/18at 19: 55; Start 03/29/18 at 21:00 Vitamin D (Vitamin D3) 50,000 unit WEEKLY PO Last administered on 04/24/18 07: 59; Start 04/03/18 at 09:00 Cyanocobalamin (Vitamin B-12) 1,000 mcg DAILY PO Last administered on 08:00; Start 03/30/18 at 09:00 Diclofenac Sodium (Voltaren) 1 evan PRN Q12HR PRN TP PAIN; Start 03/29/18 at 17: 00 Al Hydroxide/Mg Hydroxide (Mylanta Plus Xs) 15 ml PRN Q6HRS PRN PO DYSPEPSIA; Start 03/29/18 at 17:00; Status Cancel Multivitamins/ Calcium (Thera-M Plus) 1 tab DAILY PO Last administered on 07:59; Start 03/30/18 at 09:00 Lactobacillus Rhamnosus (Culturelle) 1 cap BID PO Last administered on 19:48; Start 03/29/18 at 21:00 Senna/Docusate Sodium (Senna Plus) 1 tab BID PO Last administered on 04/24/18 19:55; Start 03/29/18 at 21:00 Acetaminophen (Tylenol) 500 mg PRN Q4HRS PRN PO PAIN / TEMP Last administered on 04/16/18 20:30; Start 03/29/18 at 17:45 Amlodipine Besylate (Norvasc) 5 mg DAILY PO Last administered on 04/24/18 07: 59; Start 03/30/18 at 09:00 Aspirin (Aspirin Enteric Coated) 81 mg DAILY PO Last administered on 04/24/18 07:59; Start 03/30/18 at 09:00 Bisacodyl (Dulcolax Supp) 10 mg PRN DAILY PRN HI CONSTIPATION; Start 03/29/18 at 17:45 Carvedilol (Coreg) 12.5 mg BIDWMEALS PO Last administered on 03/30/18at 16:44; Start 03/30/18 at 08:00; Stop 03/30/18 at 17:57; Status DC Multivit/Ca Carb/ B Cmplx/FA/Prenat (Nephro-Vikram) 1 tab PRN DAILY PRN PO SUPPLEMENT; Start 03/30/18 at 09:00 Loperamide HCl (Imodium) 2 mg PRN Q2HR PRN PO DIARRHEA; Start 03/29/18 at 17:45 Non-Formulary Medication (Magnesium Hydroxide (Milk Of Magnesia)) 30 ml PRN QHS PRN PO CONSTIPATION; Start 03/29/18 at 17:00; Status UNV Memantine (Namenda) 10 mg BID PO Last administered on 04/24/18at 19:55; Start at 21:00 Potassium Chloride (Klor-Con) 20 meq 3X/WEEK PO Last administered on 04/23/18at 07:35; Start 03/31/18 at 09:00 Artificial Tears (Artificial Tears) 2 drop PRN QID PRN OU DRY EYE; Start at 18:00 Rivastigmine (Exelon) 1 patch DAILY TD Last administered on 04/24/18at 07:59; Start 03/30/18 at 09:00 Sodium Chloride (Saline Mist Nasal) 1 evan PRN TID PRN NS NASAL CONGESTION; Start 03/29/18 at 18:00 Warfarin Sodium (Coumadin) 3 mg DAILY16 PO Last administered on 04/05/18at 17:28 ; Start 03/29/18 at 18:00; Stop 04/05/18 at 17:37; Status DC Ondansetron HCl (Zofran Odt) 4 mg PRN Q4HRS PRN PO NAUSEA/VOMITING; Start at 17:30 Albuterol Sulfate (Ventolin) 2.5 mg PRN Q6HRS PRN NEB SHORTNESS OF BREATH; Start 03/29/18 at 18:00 Warfarin Sodium (Coumadin Per Physician) 1 each PRN DAILY PRN MC SEE COMMENTS; Start 03/29/18 at 18:00; Stop 04/21/18 at 16:18; Status DC Olanzapine (ZyPREXA ZYDIS) 2.5 mg PRN Q2HR PRN PO PSYCHOSIS Last administered on 04/21/18at 21:58; Start 03/29/18 at 19:15 Cefpodoxime Proxetil (Vantin) 100 mg BID PO Last administered on 04/05/18at 19: 24; Start 03/29/18 at 21:00; Stop 6/11/18 at 23:00; Status DC Amlodipine Besylate (Norvasc) 5 mg BID PRN PO ELEVATED BP, SEE COMMENTS Last administered on 03/30/18at 15:29; Start 03/30/18 at 15:30; Stop 04/06/18 at 19:36; Status DC Carvedilol (Coreg) 12.5 mg 1X ONCE PO Last administered on 03/30/18at 18:05; Start 03/30/18 at 18:00; Stop 03/30/18 at 18:01; Status DC Carvedilol (Coreg) 25 mg BIDWMEALS PO Last administered on 04/24/18 18:37; Start 03/31/18 at 08:00 Quetiapine Fumarate (SEROquel) 12.5 mg 1X ONCE PO Last administered on 18:21; Start 03/31/18 at 18:15; Stop 03/31/18 at 18:18; Status DC Quetiapine Fumarate (SEROquel) 12.5 mg BID@0900,1700 PO Last administered on at 18:03; Start 04/01/18 at 09:00; Stop 04/18/18 at 07:08; Status DC Hydroxyzine HCl (Atarax) 25 mg PRN Q2HR PRN PO PSYCHOSIS Last administered on at 19:47; Start 04/03/18 at 23:15 Warfarin Sodium (Coumadin) 4 mg DAILY PO Last administered on 04/17/18at 07:35; Start 04/06/18 at 16:00; Stop 04/17/18 at 10:17; Status DC Warfarin Sodium (Coumadin) 1 mg 1X ONCE PO Last administered on 04/05/18at 17: 45; Start 04/05/18 at 17:45; Stop 04/05/18 at 17:46; Status DC Prazosin HCl (Minipress) 1 mg HS PO Last administered on 04/05/18at 19:34; Start 04/05/18 at 21:00; Stop 04/06/18 at 18:03; Status DC Prazosin HCl (Minipress) 2 mg HS PO Last administered on 04/24/18at 19:55; Start 04/06/18 at 21:00 Furosemide (Lasix) 40 mg DAILY PO Last administered on 04/24/18at 07:59; Start 04/12/18 at 09:00 Potassium Chloride (Klor-Con) 20 meq DAILYWBKFT PO Last administered on at 08:00; Start 04/12/18 at 08:00 Warfarin Sodium (Coumadin) 4 mg DAILY16 PO Last administered on 04/24/18at 18:36 ; Start 04/18/18 at 16:00 Quetiapine Fumarate (SEROquel) 25 mg DAILY PO Last administered on 04/18/18at 07 :31; Start 04/18/18 at 09:00; Stop 04/19/18 at 07:01; Status DC Quetiapine Fumarate (SEROquel) 12.5 mg DAILYBFRSUP PO Last administered on 04/18at 17:58; Start 04/18/18 at 17:00; Stop 04/19/18 at 07:01; Status DC Quetiapine Fumarate (SEROquel) 37.5 mg DAILY PO Last administered on 04/22/18at 07:45; Start 04/19/18 at 09:00; Stop 04/22/18 at 11:05; Status DC Quetiapine Fumarate (SEROquel) 25 mg DAILYBFRSUP PO Last administered on at 17:05; Start 04/19/18 at 17:00; Stop 04/22/18 at 11:06; Status DC Divalproex Sodium (Depakote Sprinkles) 125 mg TID@0900,1300,1700 PO Last administered on 04/21/18at 17:05; Start 04/20/18 at 09:00; Stop 04/21/18 at 18:41 ; Status DC Warfarin Sodium (Coumadin Per Pharmacy) 1 each PRN DAILY PRN MC SEE COMMENTS Last administered on 04/22/18at 12:19; Start 04/21/18 at 16:30 Divalproex Sodium (Depakote Sprinkles) 250 mg TID@0900,1300,1700 PO Last administered on 04/24/18at 18:37; Start 04/22/18 at 09:00; Stop 04/24/18 at 18:45 ; Status DC Quetiapine Fumarate (SEROquel) 50 mg DAILY PO Last administered on 04/24/18at 07 :59; Start 04/23/18 at 09:00 Quetiapine Fumarate (SEROquel) 25 mg BID@1300,1700 PO Last administered on 04/24at 18:37; Start 04/22/18 at 13:00 Divalproex Sodium (Depakote Sprinkles) 375 mg TID@0900,1300,1700 PO ; Start 04/25 at 09:00 Active Scripts Active Reported Hydroxyzine Hcl 25 Mg Tablet 25 Mg PO PRN Q2HR PRN Warfarin Sodium 4 Mg Tablet 4 Mg PO DAILY Seroquel (Quetiapine Fumarate) 25 Mg Tablet 12.5 Mg PO BID AT 06/1700 Prazosin Hcl 2 Mg Capsule 2 Mg PO HS Klor-Con M20 (Potassium Chloride) 20 Meq Tab.er.prt 20 Meq PO DAILYWBKFT Ondansetron Odt (Ondansetron) 4 Mg Tab.rapdis 4 Mg PO PRN Q4HRS PRN Zyprexa Zydis (Olanzapine) 5 Mg Tab.rapdis 2.5 Mg PO PRN Q2HR PRN Analgesic [place] (Methyl Salicylate/Menthol) 28 Gm Oint...g. 1 Evan TP PRN QID PRN Furosemide 40 Mg Tablet 40 Mg PO DAILY Carvedilol 25 Mg Tablet 25 Mg PO BIDWMEALS Vitamin D3 (Cholecalciferol (Vitamin D3)) 50,000 Unit Capsule 50,000 Unit PO WEEKLY Vitamin B-12 (Cyanocobalamin (Vitamin B-12)) 1,000 Mcg Tablet 1,000 Mcg PO DAILY Probiotic (Saccharomyces Boulardii) 250 Mg Capsule 250 Mg PO DAILY Norvasc (Amlodipine Besylate) 5 Mg Tablet 5 Mg PO DAILY Nephro-Vikram Tablet (Folic Acid/Vitamin B Comp W-C) 0.8 Mg Tablet 1 Tab PO DAILY PRN EXELON 9.5mg/24hr (Rivastigmine) 1 Each Patch.td24 1 Patch TD DAILY Saline Nasal [place] (Sodium Chloride) 30 Ml [place] 30 Ml NS TID Mag-Al Plus Xs Suspension (Mag Hydrox/Al Hydrox/Simeth) 30 Ml Oral.susp 15 Ml PO PRN Q6HRS PRN Potassium Chloride Oral Liquid (Potassium Chloride) 20 Meq/15 Ml Liquid 20 Meq PO 3X/WEEK Administer on Thursday, Thursday and Thursday Thera-M Tablet (Multivits,Ca,Minerals/Iron/Fa) 1 Each Tablet 1 Tab PO DAILY Namenda (Memantine Hcl) 5 Mg Tablet 10 Mg PO BID Voltaren (Diclofenac Sodium) 100 Gm Gel..gram. 1 Evan TP PRN Q12HR PRN Systane 0.3-0.4% Eye Drops (Propylene Glycol/Peg 400) 15 Ml Drops 2 Drop OU PRN QID PRN Senokot-S Tablet (Sennosides/Docusate Sodium) 1 Each Tablet 1 Tab PO BID Milk Of Magnesia (Magnesium Hydroxide) 2,400 Mg/10 Ml Oral.susp 30 Ml PO PRN QHS PRN Imodium A-D (Loperamide Hcl) 1 Mg/7.5 Ml Liquid 2 Mg PO PRN Q2HR PRN Max dose of 16mg in 24 hours Dulcolax (Bisacodyl) 10 Mg Supp.rect 10 Mg RC PRN DAILY PRN Atorvastatin Calcium 20 Mg Tablet 20 Mg PO QHS Aspir-Low (Aspirin) 81 Mg Tablet.dr 81 Mg PO DAILY Proair Hfa Inhaler (Albuterol Sulfate) 8.5 Gm Hfa.aer.ad 1 Puff INH PRN Q6HRS PRN Acetaminophen 500 Mg Tablet 500 Mg PO PRN Q4HRS PRN NTE 3000mg APAP in 24 hours from all sources I have reviewed the current psychotropics carefully including drug interactions. Risk benefit ratio favors no change other than as noted in my dictated progress note. Diagnosis: Problems: (1) Agitation (2) Acute ischemic stroke (3) Syncope (4) Hemiplegia affecting left nondominant side (5) TIA (transient ischemic attack) (6) Hypertension (7) Anxiety disorder (8) Dementia, vascular, with delusions (9) Dementia, vascular, with depression (10) Impulse control disorder (11) Acute kidney injury DEAN GARDNER MD Apr 24, 2018 22:30
--- NOTE | 2018-04-24 22:55 | NUR ---
Nursing Note Patient found in patient room in bed for shift assessment and medication pass. Patient is alert to self only. Patient is drowsy but compliant with medications and assessment. Patient took medications in apple sauce. Patient very pleasant and appropriate during interaction. Patient remains in bed sleeping at this time.
[2018-04-25 06:16] VITALS: BP 160/87
[2018-04-25] MEDS: ASPIRIN ENTERIC COATED 81 MG TABLET.DR. PO SCH (07:41)
[2018-04-25] MEDS: LACTOBACILLUS RHAMNOSUS GG 1 CAPSULE. PO SCH ×2 (07:41→20:01)
[2018-04-25] MEDS: QUEtiapine 50 MG TABLET. PO SCH (07:41)
[2018-04-25] MEDS: POTASSIUM CHLORIDE 20 MEQ TABLET.ER. PO SCH (07:42)
[2018-04-25] MEDS: SENNOSIDES/DOCUSATE 8.6/50MG TABLET. PO SCH ×2 (07:42→19:56)
[2018-04-25] MEDS: MEMANTINE 10 MG TABLET. PO SCH ×2 (07:42→19:55)
[2018-04-25] MEDS: CARVEDILOL 12.5 MG TABLET PO SCH ×2 (07:42→18:13)
[2018-04-25] MEDS: CYANOCOBALAMIN (VITAMIN B-12) 1,000 MCG TABLET. PO SCH (07:43)
[2018-04-25] MEDS: amLODIPine BESYLATE 5 MG TABLET PO SCH (07:43)
[2018-04-25] MEDS: FUROSEMIDE 40 MG TABLET PO SCH (07:43)
[2018-04-25] MEDS: RIVASTIGMINE 9.5MG PATCH. TD SCH (07:43)
[2018-04-25] MEDS: MULTIVITAMIN with MINERAL TABLET. PO SCH (07:43)
[2018-04-25] MEDS: DIVALPROEX 125 MG CAP.SPRINK PO SCH ×3 (07:44→18:13)
[2018-04-25] MEDS: ACETAMINOPHEN 500 MG TABLET PO PRN (10:26)
[2018-04-25] MEDS ORDERED: oxyCODONE IR 5 MG TABLET PO PRN (12:15)
[2018-04-25 13:18] LABS: BASO % 1 % (0-3); EOS # 0.3 x10^3/uL (0.0-0.7); EOS % 5 % (0-3); HEMOGLOBIN 12.1 g/dL (13.0-17.5); LYMPH # 1.9 x10^3/uL (1.0-4.8); LYMPH % 40 % (24-48); MEAN CORPUSCULAR HEMOGLOBIN 31 pg (25-35); MEAN CORPUSCULAR HGB CONC 34 g/dL (31-37); MEAN CORPUSCULAR VOLUME 92 fL (79-100); MONO # 0.4 x10^3/uL (0.0-1.1); MONO % 9 % (0-9); NEUT # 2.1 x10^3uL (1.8-7.7); NEUT % 45 % (31-73); PLATELET COUNT 165 x10^3/uL (140-400); RED BLOOD COUNT 3.92 x10^6/uL (4.30-5.70); RED CELL DISTRIBUTION WIDTH 13.9 % (11.5-14.5); WHITE BLOOD COUNT 4.8 x10^3/uL (4.0-11.0)
[2018-04-25 13:27] LABS: ALBUMIN 3.2 g/dL (3.4-5.0); ALBUMIN/GLOBULIN RATIO 0.8 (1.0-1.7); ALK PHOS 93 U/L (46-116); ALT (SGPT) 24 U/L (16-63); ANION GAP 5 (6-14); AST (SGOT) 17 U/L (15-37); BLOOD UREA NITROGEN 23 mg/dL (8-26); BUN/CREATININE RATIO 15 (6-20); CALCIUM 8.9 mg/dL (8.5-10.1); CARBON DIOXIDE 29 mmol/L (21-32); CHLORIDE 103 mmol/L (98-107); CREATININE 1.5 mg/dL (0.7-1.3); GFR 56.3; POTASSIUM 4.3 mmol/L (3.5-5.1); SODIUM 137 mmol/L (136-145); TOTAL BILIRUBIN 0.4 mg/dL (0.2-1.0); URIC ACID 7.1 mg/dL (3.5-7.2)
[2018-04-25 13:32] LABS: C REACTIVE PROTEIN < 0.5 mg/L (0-3.3); GLUCOSE 197 mg/dL (70-99)
[2018-04-25 14:21] LABS: SEDIMENTATION RATE 18 (0-15)
[2018-04-25] MEDS: QUEtiapine 25 MG TABLET. PO SCH ×2 (15:11→18:14)
--- NOTE | 2018-04-25 16:13 | PN ---
DATE: 04/25/2018 SUBJECTIVE: The patient is a 67-year-old -[place] male patient who apparently has been complaining of severe pain in his left knee joint. He denied any fall or trauma. There is no evidence of any redness, tenderness or swelling, no fever, chills or rigors. OBJECTIVE: GENERAL: When I examined him, he looked well and was clearly in no apparent respiratory distress, pale, but no jaundice, cyanosis, lymphadenopathy or thyromegaly. No jugular venous distension. No limb edema. VITAL SIGNS: His heart rate was 65, blood pressure 160/87, temperature was 97.5, respiratory rate 20, and oxygen saturation was 100% on room air. HEAD, EYES, EARS, NOSE AND THROAT: Normocephalic, atraumatic. NECK: Supple. HEART: Showed normal first and second sounds. No gallop, rub or murmur. CHEST: Clear to auscultation. No crepitation or rhonchi. ABDOMEN: Distended, soft, nontender. No guarding or rigidity. No organomegaly. Hernial orifice intact. Bowel sounds normal. NEUROLOGIC: He was awake, alert, responding appropriately, has left-sided hemiplegia. He has fixed flexion contracture of his left lower extremity. There is no tenderness on palpating his left knee, no patellar tap. LABORATORY DATA: We did an extensive lab work including a CBC with a white cell count 4800, hemoglobin 12, hematocrit 36, MCV 92, and platelet count of 165,000. Chemistry showed a serum sodium 137, potassium 4.3, chloride 103, bicarbonate 29, anion gap of 5, BUN 23, creatinine 1.5, estimated GFR was 56 mL per minute, his glucose 197. His serum uric acid was 7.1, calcium was 8.9. Total bilirubin, AST, ALT, alkaline phosphatase were normal. His C-reactive protein was 0.5 mg/dL. ASSESSMENT: Probably osteoarthritis. There is no evidence that he has any septic arthritis or crystal-induced arthritis. PLAN: To continue with the Voltaren gel 1 gram applied topically 4 times a day. Given that he is already on Coumadin, I would be very reluctant to start him on any nonsteroidal anti-inflammatory medication. INDER MIRELES MD DR: ANTOINETTE/rose JOB#: [id number] / [id number]
--- NOTE | 2018-04-25 16:18 | RAD ---
EXAM: Left knee, 3 views. HISTORY: Pain. COMPARISON: None. FINDINGS: 3 views of the left knee are obtained. There is medial compartment joint space narrowing. Evaluation for effusion cannot be performed due to the absence of a true lateral image. There is lucency traversing the lateral aspect of the patella, also difficult to assess in the absence of a true lateral view or sunrise view. There are vascular calcifications. There is bone demineralization. IMPRESSION: 1. Medial compartment osteoarthritis of the left knee. 2. Lucency traversing the lateral aspect of the patella. This is difficult to assess given the absence of a true lateral view or sunrise view. Additional images can be performed if there is concern for a patellar fracture. Electronically signed by: Annetta Ely MD (04/25/2018 4:15 PM) [facility]
[2018-04-25 16:23] VITALS: BP 128/73
--- NOTE | 2018-04-25 16:50 | NUR ---
pt up in wc for meals. yelling out in am because another peer was yelling. also yelled out in afternoon because he didn't want to stay in bed. pt had c/o Left knee pain. Dr Pennington ordered lab and xray and oxycodone. xray showed osteoarthritis. No longer c/o pain.
[2018-04-25] MEDS: WARFARIN 4 MG TABLET. PO SCH (18:14)
[2018-04-25] MEDS: ATORVASTATIN CALCIUM 20 MG TABLET PO SCH (20:01)
[2018-04-25] MEDS: PRAZOSIN 1 MG CAPSULE. PO SCH (20:01)
[2018-04-25] MEDS: DICLOFENAC SODIUM 1% TOPICAL GEL 100GM TUBE. TP PRN (20:03)
--- NOTE | 2018-04-25 21:02 | PDOC ---
Exam Note: [place] Note: Please also refer to the separate dictated note~for this date of service dictated separately.~Patient seen individually. Discussed the patient with Nursing staff reviewed the chart.~Reviewed interim history and current functioning. Reviewed vital signs,~Labs/ Radiology~and current medications noted below. Continue current treatment with the changes noted in the dictated addendum note Assessment: Vital Signs: Vital Signs Date Time Temp Pulse Resp B/P (MAP) Pulse Ox O2 Delivery O2 Flow Rate FiO2 04/25/18 20:01 79 142/90 04/25/18 16:23 98.9 16 97 04/25/18 06:16 Room Air I&O Intake and Output 04/25/18 07:00 Intake Total 1080 ml Balance 1080 ml Intake Oral 1080 ml Labs: Laboratory Tests Test 04/25/18 13:07 White Blood Count 4.8 x10^3/uL (4.0-11.0) Red Blood Count 3.92 x10^6/uL (4.30-5.70) L Hemoglobin 12.1 g/dL (13.0-17.5) L Hematocrit 36.0 % (39.0-53.0) L Mean Corpuscular Volume 92 fL (79-100) Mean Corpuscular Hemoglobin 31 pg (25-35) Mean Corpuscular Hemoglobin Concent 34 g/dL (31-37) Red Cell Distribution Width 13.9 % (11.5-14.5) Platelet Count 165 x10^3/uL (140-400) Neutrophils (%) (Auto) 45 % (31-73) Lymphocytes (%) (Auto) 40 % (24-48) Monocytes (%) (Auto) 9 % (0-9) Eosinophils (%) (Auto) 5 % (0-3) H Basophils (%) (Auto) 1 % (0-3) Neutrophils # (Auto) 2.1 x10^3uL (1.8-7.7) Lymphocytes # (Auto) 1.9 x10^3/uL (1.0-4.8) Monocytes # (Auto) 0.4 x10^3/uL (0.0-1.1) Eosinophils # (Auto) 0.3 x10^3/uL (0.0-0.7) Basophils # (Auto) 0.0 x10^3/uL (0.0-0.2) Erythrocyte Sedimentation Rate 18 (0-15) H Sodium Level 137 mmol/L (136-145) Potassium Level 4.3 mmol/L (3.5-5.1) Chloride Level 103 mmol/L (98-107) Carbon Dioxide Level 29 mmol/L (21-32) Anion Gap 5 (6-14) L Blood Urea Nitrogen 23 mg/dL (8-26) Creatinine 1.5 mg/dL (0.7-1.3) H Estimated GFR (Cockcroft-Gault) 56.3 BUN/Creatinine Ratio 15 (6-20) Glucose Level 197 mg/dL (70-99) H Uric Acid 7.1 mg/dL (3.5-7.2) Calcium Level 8.9 mg/dL (8.5-10.1) Total Bilirubin 0.4 mg/dL (0.2-1.0) Aspartate Amino Transferase (AST) 17 U/L (15-37) Alanine Aminotransferase (ALT) 24 U/L (16-63) Alkaline Phosphatase 93 U/L (46-116) C-Reactive Protein < 0.5 mg/L (0-3.3) Total Protein 7.0 g/dL (6.4-8.2) Albumin 3.2 g/dL (3.4-5.0) L Albumin/Globulin Ratio 0.8 (1.0-1.7) L Current Medications: Meds: Current Medications Acetaminophen (Tylenol) 650 mg PRN Q6HRS PRN PO PAIN / TEMP; Start 03/29/18 at 16:30; Status Cancel Multi-Ingredient Ointment (Analgesic [place]) 1 evan PRN QID PRN TP MUSCLE PAIN; Start 03/29/18 at 16:30 Al Hydroxide/Mg Hydroxide (Mylanta Plus Xs) 15 ml PRN AFTMEALHC PRN PO DYSPEPSIA; Start 03/29/18 at 16:30 Magnesium Hydroxide (Milk Of Magnesia) 2,400 mg PRN QHS PRN PO CONSTIPATION; Start 03/29/18 at 16:30 Albuterol Sulfate (Ventolin Hfa) 1 puff PRN Q6HRS PRN INH SHORTNESS OF BREATH; Start 03/29/18 at 17:00; Status UNV Atorvastatin Calcium (Lipitor) 20 mg QHS PO Last administered on 04/25/18 20:01 ; Start 03/29/18 at 21:00 Vitamin D (Vitamin D3) 50,000 unit WEEKLY PO Last administered on 04/24/18 07: 59; Start 04/03/18 at 09:00 Cyanocobalamin (Vitamin B-12) 1,000 mcg DAILY PO Last administered on 04/25/18 07:43; Start 03/30/18 at 09:00 Diclofenac Sodium (Voltaren) 1 evan PRN Q12HR PRN TP PAIN Last administered on 20:03; Start 03/29/18 at 17:00 Al Hydroxide/Mg Hydroxide (Mylanta Plus Xs) 15 ml PRN Q6HRS PRN PO DYSPEPSIA; Start 03/29/18 at 17:00; Status Cancel Multivitamins/ Calcium (Thera-M Plus) 1 tab DAILY PO Last administered on 07:43; Start 03/30/18 at 09:00 Lactobacillus Rhamnosus (Culturelle) 1 cap BID PO Last administered on 20:01; Start 03/29/18 at 21:00 Senna/Docusate Sodium (Senna Plus) 1 tab BID PO Last administered on 04/25/18 19:56; Start 03/29/18 at 21:00 Acetaminophen (Tylenol) 500 mg PRN Q4HRS PRN PO PAIN / TEMP Last administered on 04/25/18 10:26; Start 03/29/18 at 17:45 Amlodipine Besylate (Norvasc) 5 mg DAILY PO Last administered on 04/25/18 07:43 ; Start 03/30/18 at 09:00 Aspirin (Aspirin Enteric Coated) 81 mg DAILY PO Last administered on 04/25/18 07:41; Start 03/30/18 at 09:00 Bisacodyl (Dulcolax Supp) 10 mg PRN DAILY PRN TN CONSTIPATION; Start 03/29/18 at 17:45 Carvedilol (Coreg) 12.5 mg BIDWMEALS PO Last administered on 03/30/18 16:44; Start 03/30/18 at 08:00; Stop 03/30/18 at 17:57; Status DC Multivit/Ca Carb/ B Cmplx/FA/Prenat (Nephro-Vikram) 1 tab PRN DAILY PRN PO SUPPLEMENT; Start 03/30/18 at 09:00 Loperamide HCl (Imodium) 2 mg PRN Q2HR PRN PO DIARRHEA; Start 03/29/18 at 17:45 Non-Formulary Medication (Magnesium Hydroxide (Milk Of Magnesia)) 30 ml PRN QHS PRN PO CONSTIPATION; Start 03/29/18 at 17:00; Status UNV Memantine (Namenda) 10 mg BID PO Last administered on 04/25/18at 19:55; Start 03/29/18 at 21:00 Potassium Chloride (Klor-Con) 20 meq 3X/WEEK PO Last administered on 04/23/18at 07:35; Start 03/31/18 at 09:00 Artificial Tears (Artificial Tears) 2 drop PRN QID PRN OU DRY EYE; Start at 18:00 Rivastigmine (Exelon) 1 patch DAILY TD Last administered on 04/25/18at 07:43; Start 03/30/18 at 09:00 Sodium Chloride (Saline Mist Nasal) 1 evan PRN TID PRN NS NASAL CONGESTION; Start 03/29/18 at 18:00 Warfarin Sodium (Coumadin) 3 mg DAILY16 PO Last administered on 04/05/18at 17:28 ; Start 03/29/18 at 18:00; Stop 04/05/18 at 17:37; Status DC Ondansetron HCl (Zofran Odt) 4 mg PRN Q4HRS PRN PO NAUSEA/VOMITING; Start at 17:30 Albuterol Sulfate (Ventolin) 2.5 mg PRN Q6HRS PRN NEB SHORTNESS OF BREATH; Start 03/29/18 at 18:00 Warfarin Sodium (Coumadin Per Physician) 1 each PRN DAILY PRN MC SEE COMMENTS; Start 03/29/18 at 18:00; Stop 04/21/18 at 16:18; Status DC Olanzapine (ZyPREXA ZYDIS) 2.5 mg PRN Q2HR PRN PO PSYCHOSIS Last administered on 04/21/18at 21:58; Start 03/29/18 at 19:15 Cefpodoxime Proxetil (Vantin) 100 mg BID PO Last administered on 04/05/18at 19: 24; Start 03/29/18 at 21:00; Stop 04/05/18 at 23:00; Status DC Amlodipine Besylate (Norvasc) 5 mg BID PRN PO ELEVATED BP, SEE COMMENTS Last administered on 03/30/18at 15:29; Start 03/30/18 at 15:30; Stop 04/06/18 at 19:36; Status DC Carvedilol (Coreg) 12.5 mg 1X ONCE PO Last administered on 03/30/18at 18:05; Start 03/30/18 at 18:00; Stop 03/30/18 at 18:01; Status DC Carvedilol (Coreg) 25 mg BIDWMEALS PO Last administered on 04/25/18at 18:13; Start 03/31/18 at 08:00 Quetiapine Fumarate (SEROquel) 12.5 mg 1X ONCE PO Last administered on at 18:21; Start 03/31/18 at 18:15; Stop 03/31/18 at 18:18; Status DC Quetiapine Fumarate (SEROquel) 12.5 mg BID@0900,1700 PO Last administered on at 18:03; Start 04/01/18 at 09:00; Stop 04/18/18 at 07:08; Status DC Hydroxyzine HCl (Atarax) 25 mg PRN Q2HR PRN PO PSYCHOSIS Last administered on at 19:47; Start 04/03/18 at 23:15 Warfarin Sodium (Coumadin) 4 mg DAILY PO Last administered on 04/17/18at 07:35; Start 04/06/18 at 16:00; Stop 04/17/18 at 10:17; Status DC Warfarin Sodium (Coumadin) 1 mg 1X ONCE PO Last administered on 04/05/18at 17: 45; Start 04/05/18 at 17:45; Stop 04/05/18 at 17:46; Status DC Prazosin HCl (Minipress) 1 mg HS PO Last administered on 04/05/18at 19:34; Start 04/05/18 at 21:00; Stop 04/06/18 at 18:03; Status DC Prazosin HCl (Minipress) 2 mg HS PO Last administered on 04/25/18at 20:01; Start 04/06/18 at 21:00 Furosemide (Lasix) 40 mg DAILY PO Last administered on 04/25/18at 07:43; Start at 09:00 Potassium Chloride (Klor-Con) 20 meq DAILYWBKFT PO Last administered on at 07:42; Start 04/12/18 at 08:00 Warfarin Sodium (Coumadin) 4 mg DAILY16 PO Last administered on 04/25/18at 18:14 ; Start 04/18/18 at 16:00 Quetiapine Fumarate (SEROquel) 25 mg DAILY PO Last administered on 04/18/18at 07 :31; Start 04/18/18 at 09:00; Stop 04/19/18 at 07:01; Status DC Quetiapine Fumarate (SEROquel) 12.5 mg DAILYBFRSUP PO Last administered on 04/18at 17:58; Start 04/18/18 at 17:00; Stop 04/19/18 at 07:01; Status DC Quetiapine Fumarate (SEROquel) 37.5 mg DAILY PO Last administered on 04/22/18at 07:45; Start 04/19/18 at 09:00; Stop 04/22/18 at 11:05; Status DC Quetiapine Fumarate (SEROquel) 25 mg DAILYBFRSUP PO Last administered on at 17:05; Start 04/19/18 at 17:00; Stop 04/22/18 at 11:06; Status DC Divalproex Sodium (Depakote Sprinkles) 125 mg TID@0900,1300,1700 PO Last administered on 04/21/18at 17:05; Start 04/20/18 at 09:00; Stop 04/21/18 at 18:41 ; Status DC Warfarin Sodium (Coumadin Per Pharmacy) 1 each PRN DAILY PRN MC SEE COMMENTS Last administered on 04/22/18at 12:19; Start 04/21/18 at 16:30 Divalproex Sodium (Depakote Sprinkles) 250 mg TID@0900,1300,1700 PO Last administered on 04/24/18at 18:37; Start 04/22/18 at 09:00; Stop 04/24/18 at 18:45 ; Status DC Quetiapine Fumarate (SEROquel) 50 mg DAILY PO Last administered on 04/25/18at 07: 41; Start 04/23/18 at 09:00 Quetiapine Fumarate (SEROquel) 25 mg BID@1300,1700 PO Last administered on at 18:14; Start 04/22/18 at 13:00 Divalproex Sodium (Depakote Sprinkles) 375 mg TID@0900,1300,1700 PO Last administered on 04/25/18at 18:13; Start 04/25/18 at 09:00 Oxycodone HCl (Roxicodone) 5 mg PRN Q6HRS PRN PO PAIN Last administered on at 15:12; Start 04/25/18 at 12:15 Active Scripts Active Reported Hydroxyzine Hcl 25 Mg Tablet 25 Mg PO PRN Q2HR PRN Warfarin Sodium 4 Mg Tablet 4 Mg PO DAILY Seroquel (Quetiapine Fumarate) 25 Mg Tablet 12.5 Mg PO BID AT 06/1700 Prazosin Hcl 2 Mg Capsule 2 Mg PO HS Klor-Con M20 (Potassium Chloride) 20 Meq Tab.er.prt 20 Meq PO DAILYWBKFT Ondansetron Odt (Ondansetron) 4 Mg Tab.rapdis 4 Mg PO PRN Q4HRS PRN Zyprexa Zydis (Olanzapine) 5 Mg Tab.rapdis 2.5 Mg PO PRN Q2HR PRN Analgesic [place] (Methyl Salicylate/Menthol) 28 Gm Oint...g. 1 Evan TP PRN QID PRN Furosemide 40 Mg Tablet 40 Mg PO DAILY Carvedilol 25 Mg Tablet 25 Mg PO BIDWMEALS Vitamin D3 (Cholecalciferol (Vitamin D3)) 50,000 Unit Capsule 50,000 Unit PO WEEKLY Vitamin B-12 (Cyanocobalamin (Vitamin B-12)) 1,000 Mcg Tablet 1,000 Mcg PO DAILY Probiotic (Saccharomyces Boulardii) 250 Mg Capsule 250 Mg PO DAILY Norvasc (Amlodipine Besylate) 5 Mg Tablet 5 Mg PO DAILY Nephro-Vikram Tablet (Folic Acid/Vitamin B Comp W-C) 0.8 Mg Tablet 1 Tab PO DAILY PRN EXELON 9.5mg/24hr (Rivastigmine) 1 Each Patch.td24 1 Patch TD DAILY Saline Nasal [place] (Sodium Chloride) 30 Ml [place] 30 Ml NS TID Mag-Al Plus Xs Suspension (Mag Hydrox/Al Hydrox/Simeth) 30 Ml Oral.susp 15 Ml PO PRN Q6HRS PRN Potassium Chloride Oral Liquid (Potassium Chloride) 20 Meq/15 Ml Liquid 20 Meq PO 3X/WEEK Administer on Thursday, Thursday and Thursday Thera-M Tablet (Multivits,Ca,Minerals/Iron/Fa) 1 Each Tablet 1 Tab PO DAILY Namenda (Memantine Hcl) 5 Mg Tablet 10 Mg PO BID Voltaren (Diclofenac Sodium) 100 Gm Gel..gram. 1 Evan TP PRN Q12HR PRN Systane 0.3-0.4% Eye Drops (Propylene Glycol/Peg 400) 15 Ml Drops 2 Drop OU PRN QID PRN Senokot-S Tablet (Sennosides/Docusate Sodium) 1 Each Tablet 1 Tab PO BID Milk Of Magnesia (Magnesium Hydroxide) 2,400 Mg/10 Ml Oral.susp 30 Ml PO PRN QHS PRN Imodium A-D (Loperamide Hcl) 1 Mg/7.5 Ml Liquid 2 Mg PO PRN Q2HR PRN Max dose of 16mg in 24 hours Dulcolax (Bisacodyl) 10 Mg Supp.rect 10 Mg RC PRN DAILY PRN Atorvastatin Calcium 20 Mg Tablet 20 Mg PO QHS Aspir-Low (Aspirin) 81 Mg Tablet.dr 81 Mg PO DAILY Proair Hfa Inhaler (Albuterol Sulfate) 8.5 Gm Hfa.aer.ad 1 Puff INH PRN Q6HRS PRN Acetaminophen 500 Mg Tablet 500 Mg PO PRN Q4HRS PRN NTE 3000mg APAP in 24 hours from all sources I have reviewed the current psychotropics carefully including drug interactions. Risk benefit ratio favors no change other than as noted in my dictated progress note. Diagnosis: Problems: (1) Agitation (2) Acute ischemic stroke (3) Syncope (4) Hemiplegia affecting left nondominant side (5) TIA (transient ischemic attack) (6) Hypertension (7) Anxiety disorder (8) Dementia, vascular, with delusions (9) Dementia, vascular, with depression (10) Impulse control disorder (11) Acute kidney injury DEAN GARDNER MD Apr 25, 2018 21:02
--- NOTE | 2018-04-26 00:44 | PN ---
DATE: 04/23/2018 PSYCHIATRIC PROGRESS NOTE This is a late entry 04/23/2018, covers elements not covered in my initial note 04/23/2018. SUBJECTIVE: I met with the patient in the evening. The patient slept 7-1/2 hours previous evening, remains confused, less agitated, calm, cooperative, and at times he feels people are stealing from him, stealing his truck. REVIEW OF SYSTEMS: Ambulation impaired, in a reclining chair. No CV, , pulmonary, eye, ENT system symptoms on review. Reliability poor. MENTAL STATUS EXAM: Oriented to himself. Insight, judgment, recent and remote memory, attention, concentration, fund of knowledge poor, consistent with his diagnoses from initial note. PLAN: No change from psychotropics mentioned in initial note. MAN Beny GARDNER MD DR: DAMIEN/rose JOB#: [id number] / [id number]
--- NOTE | 2018-04-26 00:47 | PN ---
DATE: 04/24/2018 PSYCHIATRIC PROGRESS NOTE This is a late entry 04/24/2018, covers elements not covered in my initial note. SUBJECTIVE: I met with the patient in the evening. The patient slept 9 hours previous evening. He was yelling in the morning, stated his room was smelling of urine when in fact it was not. Rest of the day he has done alright. REVIEW OF SYSTEMS: Ambulation impaired, in wheelchair. No CV, , pulmonary, eye, ENT system symptoms on review. Reliability poor. MENTAL STATUS EXAM: Oriented to himself. Insight, judgment, recent and remote memory, attention, concentration, fund of knowledge poor, consistent with his diagnoses mentioned in my initial note. Valproic acid level is 41, on Depakote Sprinkles 250 t.i.d. PLAN: We will increase Depakote Sprinkles to 375 mg 3 times a day. Check CBC, CMP, valproic acid level in 3 days. Rest unchanged from initial note. MAN Beny GARDNER MD DR: DAMIEN/rose JOB#: [id number] / [id number]
--- NOTE | 2018-04-26 00:49 | PN ---
DATE: 04/25/2018 PSYCHIATRIC PROGRESS NOTE This note covers elements not covered in my initial note 04/25/2018. SUBJECTIVE: I met with the patient in the evening. The patient slept 8-3/4 hours previous evening. He has yelled out on two different occasions, once at a peer and wants out of bed, complains of right and left knee pain. X-ray shows arthritis. REVIEW OF SYSTEMS: Ambulation impaired, in wheelchair. No CV, , pulmonary, eye system symptoms on review. Reliability poor. MENTAL STATUS EXAM: Oriented to himself. Insight, judgment, recent and remote memory, attention, concentration, fund of knowledge poor, consistent with his diagnoses from initial note. PLAN: No change from a psychiatric standpoint. Depakote has been increased to 375 mg 3 times a day. Check CBC, CMP, valproic acid level in 3 days. Rest unchanged. MAN Beny GARDNER MD DR: DAMIEN/rose JOB#: [id number] / [id number]
--- NOTE | 2018-04-26 02:08 | NUR ---
Nursing Note Patient located in day room/bedroom for shift assessment and medication pass. Patient took his medications whole in apple sauce. Patient very pleasant but drowsy during interactions. Patient complained of pain in his left lower leg but by the time this nurse was able to assess him the patient stated it had resolved on its own. Patient currently sleeping in room.
[2018-04-26 06:26] VITALS: BP 134/87
[2018-04-26] MEDS: POTASSIUM CHLORIDE 20 MEQ TABLET.ER. PO SCH ×2 (08:57→08:59)
[2018-04-26] MEDS: DIVALPROEX 125 MG CAP.SPRINK PO SCH ×3 (08:58→16:58)
[2018-04-26] MEDS: CYANOCOBALAMIN (VITAMIN B-12) 1,000 MCG TABLET. PO SCH (08:58)
[2018-04-26] MEDS: SENNOSIDES/DOCUSATE 8.6/50MG TABLET. PO SCH ×2 (08:58→20:10)
[2018-04-26] MEDS: LACTOBACILLUS RHAMNOSUS GG 1 CAPSULE. PO SCH ×2 (08:58→20:09)
[2018-04-26] MEDS: ASPIRIN ENTERIC COATED 81 MG TABLET.DR. PO SCH (08:58)
[2018-04-26] MEDS: MULTIVITAMIN with MINERAL TABLET. PO SCH (08:58)
[2018-04-26] MEDS: QUEtiapine 50 MG TABLET. PO SCH (08:58)
[2018-04-26] MEDS: amLODIPine BESYLATE 5 MG TABLET PO SCH (08:58)
[2018-04-26] MEDS: FUROSEMIDE 40 MG TABLET PO SCH (08:58)
[2018-04-26] MEDS: CARVEDILOL 12.5 MG TABLET PO SCH ×2 (08:59→16:58)
[2018-04-26] MEDS: MEMANTINE 10 MG TABLET. PO SCH ×2 (08:59→20:10)
[2018-04-26] MEDS: RIVASTIGMINE 9.5MG PATCH. TD SCH (08:59)
--- NOTE | 2018-04-26 10:28 | NUR ---
Behavior Intervention Response and Plan: BIRP Note: Behavior: Assumed Care of patient, patient located in Day Room at shift change. Patient exhibited the following behavior Disorganized, Calm, Compliant. Brief assessment on rounds of vital signs, medication needs, lab studies, and pain. Treatment plan problems 1-2. Intervention: Patient assessed and the following interventions initiated safety checks 15 Minute Checks Personal Alarm in place , Cognitive Assessment , Head to toe Assessment. Response: After interactions and interventions patient responded in the following manner, Disorganized , Calm ,Compliant. Continue to assess behaviors and condition will continue to monitor throughout the shift as needed. Patient educated on ADL's, and hand hygiene. Plan: Continue to monitor Master Treatment Plan for patient's progress toward short term goals of Decreased Agitation, Improved Mood, long term care administrator goals to return to previous living setting vs placement. Continue to assess patient for changes in above assessment. Monitor for medication needs, pain, and safety concerns. Hourly rounding performed to ensure safe environment.
[2018-04-26] MEDS: QUEtiapine 25 MG TABLET. PO SCH ×2 (13:52→16:58)
[2018-04-26 16:05] VITALS: BP 147/76
[2018-04-26] MEDS: WARFARIN 4 MG TABLET. PO SCH (16:58)
[2018-04-26] MEDS: ATORVASTATIN CALCIUM 20 MG TABLET PO SCH (20:10)
[2018-04-26] MEDS: PRAZOSIN 1 MG CAPSULE. PO SCH (20:10)
--- NOTE | 2018-04-26 21:04 | PDOC ---
Exam Note: [place] Note: Please also refer to the separate dictated note~for this date of service dictated separately.~Patient seen individually. Discussed the patient with Nursing staff reviewed the chart.~Reviewed interim history and current functioning. Reviewed vital signs,~Labs/ Radiology~and current medications noted below. Continue current treatment with the changes noted in the dictated addendum note Assessment: Vital Signs: Vital Signs Date Time Temp Pulse Resp B/P (MAP) Pulse Ox O2 Delivery O2 Flow Rate FiO2 04/26/18 20:10 70 147/76 04/26/18 16:05 98.1 18 100 04/25/18 06:16 Room Air I&O Intake and Output 04/26/18 06:59 Intake Total 1920 ml Balance 1920 ml Intake Oral 1920 ml # Voids 2 # Bowel Movements 1 Current Medications: Meds: Current Medications Acetaminophen (Tylenol) 650 mg PRN Q6HRS PRN PO PAIN / TEMP; Start 03/29/18 at 16:30; Status Cancel Multi-Ingredient Ointment (Analgesic [place]) 1 evan PRN QID PRN TP MUSCLE PAIN; Start 03/29/18 at 16:30 Al Hydroxide/Mg Hydroxide (Mylanta Plus Xs) 15 ml PRN AFTMEALHC PRN PO DYSPEPSIA; Start 03/29/18 at 16:30 Magnesium Hydroxide (Milk Of Magnesia) 2,400 mg PRN QHS PRN PO CONSTIPATION; Start 03/29/18 at 16:30 Albuterol Sulfate (Ventolin Hfa) 1 puff PRN Q6HRS PRN INH SHORTNESS OF BREATH; Start 03/29/18 at 17:00; Status UNV Atorvastatin Calcium (Lipitor) 20 mg QHS PO Last administered on 04/26/18at 20:10 ; Start 03/29/18 at 21:00 Vitamin D (Vitamin D3) 50,000 unit WEEKLY PO Last administered on 04/24/18at 07: 59; Start 04/03/18 at 09:00 Cyanocobalamin (Vitamin B-12) 1,000 mcg DAILY PO Last administered on 04/26/18at 08:58; Start 03/30/18 at 09:00 Diclofenac Sodium (Voltaren) 1 evan PRN Q12HR PRN TP PAIN; Start 03/29/18 at 17: 00 Al Hydroxide/Mg Hydroxide (Mylanta Plus Xs) 15 ml PRN Q6HRS PRN PO DYSPEPSIA; Start 03/29/18 at 17:00; Status Cancel Multivitamins/ Calcium (Thera-M Plus) 1 tab DAILY PO Last administered on 08:58; Start 03/30/18 at 09:00 Lactobacillus Rhamnosus (Culturelle) 1 cap BID PO Last administered on 20:09; Start 03/29/18 at 21:00 Senna/Docusate Sodium (Senna Plus) 1 tab BID PO Last administered on 04/26/18 20:10; Start 03/29/18 at 21:00 Acetaminophen (Tylenol) 500 mg PRN Q4HRS PRN PO PAIN / TEMP Last administered on 04/25/18 10:26; Start 03/29/18 at 17:45 Amlodipine Besylate (Norvasc) 5 mg DAILY PO Last administered on 04/26/18 08:58 ; Start 03/30/18 at 09:00 Aspirin (Aspirin Enteric Coated) 81 mg DAILY PO Last administered on 04/26/18 08:58; Start 03/30/18 at 09:00 Bisacodyl (Dulcolax Supp) 10 mg PRN DAILY PRN [place] CONSTIPATION; Start 03/29/18 at 17:45 Carvedilol (Coreg) 12.5 mg BIDWMEALS PO Last administered on 03/30/18at 16:44; Start 03/30/18 at 08:00; Stop 03/30/18 at 17:57; Status DC Multivit/Ca Carb/ B Cmplx/FA/Prenat (Nephro-Vikram) 1 tab PRN DAILY PRN PO SUPPLEMENT; Start 03/30/18 at 09:00 Loperamide HCl (Imodium) 2 mg PRN Q2HR PRN PO DIARRHEA; Start 03/29/18 at 17:45 Non-Formulary Medication (Magnesium Hydroxide (Milk Of Magnesia)) 30 ml PRN QHS PRN PO CONSTIPATION; Start 03/29/18 at 17:00; Status UNV Memantine (Namenda) 10 mg BID PO Last administered on 04/26/18at 20:10; Start 03/29/18 at 21:00 Potassium Chloride (Klor-Con) 20 meq 3X/WEEK PO Last administered on 04/26/18at 08:59; Start 03/31/18 at 09:00 Artificial Tears (Artificial Tears) 2 drop PRN QID PRN OU DRY EYE; Start at 18:00 Rivastigmine (Exelon) 1 patch DAILY TD Last administered on 04/26/18at 08:59; Start 03/30/18 at 09:00 Sodium Chloride (Saline Mist Nasal) 1 evan PRN TID PRN NS NASAL CONGESTION; Start 03/29/18 at 18:00 Warfarin Sodium (Coumadin) 3 mg DAILY16 PO Last administered on 04/05/18at 17:28 ; Start 03/29/18 at 18:00; Stop 04/05/18 at 17:37; Status DC Ondansetron HCl (Zofran Odt) 4 mg PRN Q4HRS PRN PO NAUSEA/VOMITING; Start at 17:30 Albuterol Sulfate (Ventolin) 2.5 mg PRN Q6HRS PRN NEB SHORTNESS OF BREATH; Start 03/29/18 at 18:00 Warfarin Sodium (Coumadin Per Physician) 1 each PRN DAILY PRN MC SEE COMMENTS; Start 03/29/18 at 18:00; Stop 04/21/18 at 16:18; Status DC Olanzapine (ZyPREXA ZYDIS) 2.5 mg PRN Q2HR PRN PO PSYCHOSIS Last administered on 04/21/18at 21:58; Start 03/29/18 at 19:15 Cefpodoxime Proxetil (Vantin) 100 mg BID PO Last administered on 04/05/18at 19: 24; Start 03/29/18 at 21:00; Stop 04/05/18 at 23:00; Status DC Amlodipine Besylate (Norvasc) 5 mg BID PRN PO ELEVATED BP, SEE COMMENTS Last administered on 03/30/18at 15:29; Start 03/30/18 at 15:30; Stop 04/06/18 at 19:36; Status DC Carvedilol (Coreg) 12.5 mg 1X ONCE PO Last administered on 03/30/18at 18:05; Start 03/30/18 at 18:00; Stop 03/30/18 at 18:01; Status DC Carvedilol (Coreg) 25 mg BIDWMEALS PO Last administered on 04/26/18 16:58; Start 03/31/18 at 08:00 Quetiapine Fumarate (SEROquel) 12.5 mg 1X ONCE PO Last administered on at 18:21; Start 03/31/18 at 18:15; Stop 03/31/18 at 18:18; Status DC Quetiapine Fumarate (SEROquel) 12.5 mg BID@0900,1700 PO Last administered on at 18:03; Start 04/01/18 at 09:00; Stop 04/18/18 at 07:08; Status DC Hydroxyzine HCl (Atarax) 25 mg PRN Q2HR PRN PO PSYCHOSIS Last administered on at 19:47; Start 04/03/18 at 23:15 Warfarin Sodium (Coumadin) 4 mg DAILY PO Last administered on 04/17/18at 07:35; Start 04/06/18 at 16:00; Stop 04/17/18 at 10:17; Status DC Warfarin Sodium (Coumadin) 1 mg 1X ONCE PO Last administered on 04/05/18at 17: 45; Start 04/05/18 at 17:45; Stop 04/05/18 at 17:46; Status DC Prazosin HCl (Minipress) 1 mg HS PO Last administered on 04/05/18at 19:34; Start 04/05/18 at 21:00; Stop 04/06/18 at 18:03; Status DC Prazosin HCl (Minipress) 2 mg HS PO Last administered on 04/26/18at 20:10; Start 04/06/18 at 21:00 Furosemide (Lasix) 40 mg DAILY PO Last administered on 04/26/18 08:58; Start at 09:00 Potassium Chloride (Klor-Con) 20 meq DAILYWBKFT PO Last administered on 08:57; Start 04/12/18 at 08:00 Warfarin Sodium (Coumadin) 4 mg DAILY16 PO Last administered on 04/26/18at 16:58 ; Start 04/18/18 at 16:00 Quetiapine Fumarate (SEROquel) 25 mg DAILY PO Last administered on 04/18/18at 07 :31; Start 04/18/18 at 09:00; Stop 04/19/18 at 07:01; Status DC Quetiapine Fumarate (SEROquel) 12.5 mg DAILYBFRSUP PO Last administered on 04/18at 17:58; Start 04/18/18 at 17:00; Stop 04/19/18 at 07:01; Status DC Quetiapine Fumarate (SEROquel) 37.5 mg DAILY PO Last administered on 04/22/18at 07:45; Start 04/19/18 at 09:00; Stop 04/22/18 at 11:05; Status DC Quetiapine Fumarate (SEROquel) 25 mg DAILYBFRSUP PO Last administered on at 17:05; Start 04/19/18 at 17:00; Stop 04/22/18 at 11:06; Status DC Divalproex Sodium (Depakote Sprinkles) 125 mg TID@0900,1300,1700 PO Last administered on 04/21/18at 17:05; Start 04/20/18 at 09:00; Stop 04/21/18 at 18:41 ; Status DC Warfarin Sodium (Coumadin Per Pharmacy) 1 each PRN DAILY PRN MC SEE COMMENTS Last administered on 04/22/18at 12:19; Start 04/21/18 at 16:30 Divalproex Sodium (Depakote Sprinkles) 250 mg TID@0900,1300,1700 PO Last administered on 04/24/18at 18:37; Start 04/22/18 at 09:00; Stop 04/24/18 at 18:45 ; Status DC Quetiapine Fumarate (SEROquel) 50 mg DAILY PO Last administered on 04/26/18 08: 58; Start 04/23/18 at 09:00 Quetiapine Fumarate (SEROquel) 25 mg BID@1300,1700 PO Last administered on 16:58; Start 04/22/18 at 13:00 Divalproex Sodium (Depakote Sprinkles) 375 mg TID@0900,1300,1700 PO Last administered on 04/26/18 16:58; Start 04/25/18 at 09:00 Oxycodone HCl (Roxicodone) 5 mg PRN Q6HRS PRN PO PAIN Last administered on at 15:12; Start 04/25/18 at 12:15 Active Scripts Active Reported Hydroxyzine Hcl 25 Mg Tablet 25 Mg PO PRN Q2HR PRN Warfarin Sodium 4 Mg Tablet 4 Mg PO DAILY Seroquel (Quetiapine Fumarate) 25 Mg Tablet 12.5 Mg PO BID AT 06/1700 Prazosin Hcl 2 Mg Capsule 2 Mg PO HS Klor-Con M20 (Potassium Chloride) 20 Meq Tab.er.prt 20 Meq PO DAILYWBKFT Ondansetron Odt (Ondansetron) 4 Mg Tab.rapdis 4 Mg PO PRN Q4HRS PRN Zyprexa Zydis (Olanzapine) 5 Mg Tab.rapdis 2.5 Mg PO PRN Q2HR PRN Analgesic [place] (Methyl Salicylate/Menthol) 28 Gm Oint...g. 1 Evan TP PRN QID PRN Furosemide 40 Mg Tablet 40 Mg PO DAILY Carvedilol 25 Mg Tablet 25 Mg PO BIDWMEALS Vitamin D3 (Cholecalciferol (Vitamin D3)) 50,000 Unit Capsule 50,000 Unit PO WEEKLY Vitamin B-12 (Cyanocobalamin (Vitamin B-12)) 1,000 Mcg Tablet 1,000 Mcg PO DAILY Probiotic (Saccharomyces Boulardii) 250 Mg Capsule 250 Mg PO DAILY Norvasc (Amlodipine Besylate) 5 Mg Tablet 5 Mg PO DAILY Nephro-Vikram Tablet (Folic Acid/Vitamin B Comp W-C) 0.8 Mg Tablet 1 Tab PO DAILY PRN EXELON 9.5mg/24hr (Rivastigmine) 1 Each Patch.td24 1 Patch TD DAILY Saline Nasal [place] (Sodium Chloride) 30 Ml Webb 30 Ml NS TID Mag-Al Plus Xs Suspension (Mag Hydrox/Al Hydrox/Simeth) 30 Ml Oral.susp 15 Ml PO PRN Q6HRS PRN Potassium Chloride Oral Liquid (Potassium Chloride) 20 Meq/15 Ml Liquid 20 Meq PO 3X/WEEK Administer on Thursday, Thursday and Thursday Thera-M Tablet (Multivits,Ca,Minerals/Iron/Fa) 1 Each Tablet 1 Tab PO DAILY Namenda (Memantine Hcl) 5 Mg Tablet 10 Mg PO BID Voltaren (Diclofenac Sodium) 100 Gm Gel..gram. 1 Evan TP PRN Q12HR PRN Systane 0.3-0.4% Eye Drops (Propylene Glycol/Peg 400) 15 Ml Drops 2 Drop OU PRN QID PRN Senokot-S Tablet (Sennosides/Docusate Sodium) 1 Each Tablet 1 Tab PO BID Milk Of Magnesia (Magnesium Hydroxide) 2,400 Mg/10 Ml Oral.susp 30 Ml PO PRN QHS PRN Imodium A-D (Loperamide Hcl) 1 Mg/7.5 Ml Liquid 2 Mg PO PRN Q2HR PRN Max dose of 16mg in 24 hours Dulcolax (Bisacodyl) 10 Mg Supp.rect 10 Mg RC PRN DAILY PRN Atorvastatin Calcium 20 Mg Tablet 20 Mg PO QHS Aspir-Low (Aspirin) 81 Mg Tablet.dr 81 Mg PO DAILY Proair Hfa Inhaler (Albuterol Sulfate) 8.5 Gm Hfa.aer.ad 1 Puff INH PRN Q6HRS PRN Acetaminophen 500 Mg Tablet 500 Mg PO PRN Q4HRS PRN NTE 3000mg APAP in 24 hours from all sources I have reviewed the current psychotropics carefully including drug interactions. Risk benefit ratio favors no change other than as noted in my dictated progress note. Diagnosis: Problems: (1) Agitation (2) Acute ischemic stroke (3) Syncope (4) Hemiplegia affecting left nondominant side (5) TIA (transient ischemic attack) (6) Hypertension (7) Anxiety disorder (8) Dementia, vascular, with delusions (9) Dementia, vascular, with depression (10) Impulse control disorder (11) Acute kidney injury DEAN GARDNER MD Apr 26, 2018 21:04
--- NOTE | 2018-04-26 23:03 | NUR ---
Nursing Note Patient is located in bed for shift assessment and medication pass. Patient is alert and oriented to self only. Patient is calm and compliant with assessment and medications. Patient is very pleasant during interaction. Patient prefers medications whole in apple sauce. patient remained in bed after assessment and slept for remainder of shift.
[2018-04-27 06:24] VITALS: BP 151/90
[2018-04-27 07:00] LABS: BASO % 1 % (0-3); EOS # 0.3 x10^3/uL (0.0-0.7); EOS % 6 % (0-3); HEMATOCRIT 35.8 % (39.0-53.0); HEMOGLOBIN 11.7 g/dL (13.0-17.5); LYMPH % 42 % (24-48); MEAN CORPUSCULAR HEMOGLOBIN 30 pg (25-35); MEAN CORPUSCULAR HGB CONC 33 g/dL (31-37); MEAN CORPUSCULAR VOLUME 92 fL (79-100); MONO # 0.5 x10^3/uL (0.0-1.1); MONO % 11 % (0-9); NEUT # 1.9 x10^3uL (1.8-7.7); NEUT % 40 % (31-73); PLATELET COUNT 150 x10^3/uL (140-400); RED BLOOD COUNT 3.88 x10^6/uL (4.30-5.70); RED CELL DISTRIBUTION WIDTH 13.9 % (11.5-14.5); WHITE BLOOD COUNT 4.6 x10^3/uL (4.0-11.0)
[2018-04-27 07:17] LABS: ALBUMIN 2.9 g/dL (3.4-5.0); ALBUMIN/GLOBULIN RATIO 0.8 (1.0-1.7); ALK PHOS 83 U/L (46-116); ALT (SGPT) 20 U/L (16-63); ANION GAP 5 (6-14); AST (SGOT) 17 U/L (15-37); BLOOD UREA NITROGEN 24 mg/dL (8-26); BUN/CREATININE RATIO 17 (6-20); CALCIUM 9.1 mg/dL (8.5-10.1); CARBON DIOXIDE 30 mmol/L (21-32); CHLORIDE 104 mmol/L (98-107); CREATININE 1.4 mg/dL (0.7-1.3); GLUCOSE 130 mg/dL (70-99); POTASSIUM 4.5 mmol/L (3.5-5.1); SODIUM 139 mmol/L (136-145); TOTAL BILIRUBIN 0.4 mg/dL (0.2-1.0); TOTAL PROTEIN 6.5 g/dL (6.4-8.2)
[2018-04-27 07:18] LABS: VAL ACID 49 mcg/mL (50-100)
[2018-04-27] MEDS: QUEtiapine 50 MG TABLET. PO SCH (08:28)
[2018-04-27] MEDS: ASPIRIN ENTERIC COATED 81 MG TABLET.DR. PO SCH (08:29)
[2018-04-27] MEDS: DIVALPROEX 125 MG CAP.SPRINK PO SCH ×3 (08:29→18:00)
[2018-04-27] MEDS: amLODIPine BESYLATE 5 MG TABLET PO SCH (08:29)
[2018-04-27] MEDS: SENNOSIDES/DOCUSATE 8.6/50MG TABLET. PO SCH ×2 (08:29→20:17)
[2018-04-27] MEDS: POTASSIUM CHLORIDE 20 MEQ TABLET.ER. PO SCH (08:29)
[2018-04-27] MEDS: MEMANTINE 10 MG TABLET. PO SCH ×2 (08:30→20:17)
[2018-04-27] MEDS: RIVASTIGMINE 9.5MG PATCH. TD SCH (08:30)
[2018-04-27] MEDS: MULTIVITAMIN with MINERAL TABLET. PO SCH (08:30)
[2018-04-27] MEDS: FUROSEMIDE 40 MG TABLET PO SCH (08:30)
[2018-04-27] MEDS: CYANOCOBALAMIN (VITAMIN B-12) 1,000 MCG TABLET. PO SCH (08:30)
[2018-04-27] MEDS: CARVEDILOL 12.5 MG TABLET PO SCH ×2 (08:30→18:00)
[2018-04-27] MEDS: LACTOBACILLUS RHAMNOSUS GG 1 CAPSULE. PO SCH ×2 (08:30→20:17)
--- NOTE | 2018-04-27 10:42 | NUR ---
Behavior Intervention Response and Plan: BIRP Note: Behavior: Assumed Care of patient, patient located in Dining Room at shift change. Patient exhibited the following behavior Calm, Disorganized, Cooperative. Brief assessment on rounds of vital signs, medication needs, lab studies, and pain. Treatment plan problems 1-2. Intervention: Patient assessed and the following interventions initiated safety checks 15 Minute Checks Personal Alarm in place , Cognitive Assessment , Head to toe Assessment. Response: After interactions and interventions patient responded in the following manner, Disorganized , Compliant ,Drowsy. Continue to assess behaviors and condition will continue to monitor throughout the shift as needed. Patient educated on ADL's, and hand hygiene. Plan: Continue to monitor Master Treatment Plan for patient's progress toward short term goals of Decreased Agitation, , jail goals to return to previous living setting vs placement. Continue to assess patient for changes in above assessment. Monitor for medication needs, pain, and safety concerns. Hourly rounding performed to ensure safe environment.
--- NOTE | 2018-04-27 11:26 | NUR ---
WALI attempted to fax updated clinical notes to pt's facility and request transport time for target dc date for . Fax line is busy. WALI will reattempt to fax later. Addendum: 04/27/18 at 1456 by MURIEL KEYES WALI able to fax clinicals successfully.
[2018-04-27] MEDS: QUEtiapine 25 MG TABLET. PO SCH ×2 (13:18→18:00)
[2018-04-27 16:28] VITALS: BP 147/82
[2018-04-27] MEDS: WARFARIN 4 MG TABLET. PO SCH (17:53)
[2018-04-27] MEDS: ATORVASTATIN CALCIUM 20 MG TABLET PO SCH (20:17)
[2018-04-27] MEDS: PRAZOSIN 1 MG CAPSULE. PO SCH (20:18)
--- NOTE | 2018-04-27 20:44 | PDOC ---
Exam Note: [place] Note: Please also refer to the separate dictated note~for this date of service dictated separately.~Patient seen individually. Discussed the patient with Nursing staff reviewed the chart.~Reviewed interim history and current functioning. Reviewed vital signs,~Labs/ Radiology~and current medications noted below. Continue current treatment with the changes noted in the dictated addendum note Assessment: Vital Signs: Vital Signs Date Time Temp Pulse Resp B/P (MAP) Pulse Ox O2 Delivery O2 Flow Rate FiO2 04/27/18 20:18 71 147/82 04/27/18 16:28 97.3 18 100 04/25/18 06:16 Room Air I&O Intake and Output 04/27/18 06:59 Intake Total 1200 ml Balance 1200 ml Intake Oral 1200 ml # Voids 2 Labs: Laboratory Tests Test 04/27/18 06:35 White Blood Count 4.6 x10^3/uL (4.0-11.0) Red Blood Count 3.88 x10^6/uL (4.30-5.70) L Hemoglobin 11.7 g/dL (13.0-17.5) L Hematocrit 35.8 % (39.0-53.0) L Mean Corpuscular Volume 92 fL (79-100) Mean Corpuscular Hemoglobin 30 pg (25-35) Mean Corpuscular Hemoglobin Concent 33 g/dL (31-37) Red Cell Distribution Width 13.9 % (11.5-14.5) Platelet Count 150 x10^3/uL (140-400) Neutrophils (%) (Auto) 40 % (31-73) Lymphocytes (%) (Auto) 42 % (24-48) Monocytes (%) (Auto) 11 % (0-9) H Eosinophils (%) (Auto) 6 % (0-3) H Basophils (%) (Auto) 1 % (0-3) Neutrophils # (Auto) 1.9 x10^3uL (1.8-7.7) Lymphocytes # (Auto) 2.0 x10^3/uL (1.0-4.8) Monocytes # (Auto) 0.5 x10^3/uL (0.0-1.1) Eosinophils # (Auto) 0.3 x10^3/uL (0.0-0.7) Basophils # (Auto) 0.0 x10^3/uL (0.0-0.2) Sodium Level 139 mmol/L (136-145) Potassium Level 4.5 mmol/L (3.5-5.1) Chloride Level 104 mmol/L (98-107) Carbon Dioxide Level 30 mmol/L (21-32) Anion Gap 5 (6-14) L Blood Urea Nitrogen 24 mg/dL (8-26) Creatinine 1.4 mg/dL (0.7-1.3) H Estimated GFR (Cockcroft-Gault) 61.0 BUN/Creatinine Ratio 17 (6-20) Glucose Level 130 mg/dL (70-99) H Calcium Level 9.1 mg/dL (8.5-10.1) Total Bilirubin 0.4 mg/dL (0.2-1.0) Aspartate Amino Transferase (AST) 17 U/L (15-37) Alanine Aminotransferase (ALT) 20 U/L (16-63) Alkaline Phosphatase 83 U/L (46-116) Total Protein 6.5 g/dL (6.4-8.2) Albumin 2.9 g/dL (3.4-5.0) L Albumin/Globulin Ratio 0.8 (1.0-1.7) L Valproic Acid Level 49 mcg/mL (50-100) L Valproic Acid Last Dose Date 04/26/18 Valproic Acid Last Dose Time 2100 Current Medications: Meds: Current Medications Acetaminophen (Tylenol) 650 mg PRN Q6HRS PRN PO PAIN / TEMP; Start 03/29/18 at 16:30; Status Cancel Multi-Ingredient Ointment (Analgesic [place]) 1 evan PRN QID PRN TP MUSCLE PAIN; Start 03/29/18 at 16:30 Al Hydroxide/Mg Hydroxide (Mylanta Plus Xs) 15 ml PRN AFTMEALHC PRN PO DYSPEPSIA; Start 03/29/18 at 16:30 Magnesium Hydroxide (Milk Of Magnesia) 2,400 mg PRN QHS PRN PO CONSTIPATION; Start 03/29/18 at 16:30 Albuterol Sulfate (Ventolin Hfa) 1 puff PRN Q6HRS PRN INH SHORTNESS OF BREATH; Start 03/29/18 at 17:00; Status UNV Atorvastatin Calcium (Lipitor) 20 mg QHS PO Last administered on 04/27/18at 20:17 ; Start 03/29/18 at 21:00 Vitamin D (Vitamin D3) 50,000 unit WEEKLY PO Last administered on 04/24/18 07: 59; Start 04/03/18 at 09:00 Cyanocobalamin (Vitamin B-12) 1,000 mcg DAILY PO Last administered on 04/27/18 08:30; Start 03/30/18 at 09:00 Diclofenac Sodium (Voltaren) 1 evan PRN Q12HR PRN TP PAIN; Start 03/29/18 at 17: 00 Al Hydroxide/Mg Hydroxide (Mylanta Plus Xs) 15 ml PRN Q6HRS PRN PO DYSPEPSIA; Start 03/29/18 at 17:00; Status Cancel Multivitamins/ Calcium (Thera-M Plus) 1 tab DAILY PO Last administered on 08:30; Start 03/30/18 at 09:00 Lactobacillus Rhamnosus (Culturelle) 1 cap BID PO Last administered on 20:17; Start 03/29/18 at 21:00 Senna/Docusate Sodium (Senna Plus) 1 tab BID PO Last administered on 04/27/18 20:17; Start 03/29/18 at 21:00 Acetaminophen (Tylenol) 500 mg PRN Q4HRS PRN PO PAIN / TEMP Last administered on 04/25/18 10:26; Start 03/29/18 at 17:45 Amlodipine Besylate (Norvasc) 5 mg DAILY PO Last administered on 04/27/18 08:29 ; Start 03/30/18 at 09:00 Aspirin (Aspirin Enteric Coated) 81 mg DAILY PO Last administered on 04/27/18 08:29; Start 03/30/18 at 09:00 Bisacodyl (Dulcolax Supp) 10 mg PRN DAILY PRN [place] CONSTIPATION; Start 03/29/18 at 17:45 Carvedilol (Coreg) 12.5 mg BIDWMEALS PO Last administered on 03/30/18 16:44; Start 03/30/18 at 08:00; Stop 03/30/18 at 17:57; Status DC Multivit/Ca Carb/ B Cmplx/FA/Prenat (Nephro-Vikram) 1 tab PRN DAILY PRN PO SUPPLEMENT; Start 03/30/18 at 09:00 Loperamide HCl (Imodium) 2 mg PRN Q2HR PRN PO DIARRHEA; Start 03/29/18 at 17:45 Non-Formulary Medication (Magnesium Hydroxide (Milk Of Magnesia)) 30 ml PRN QHS PRN PO CONSTIPATION; Start 03/29/18 at 17:00; Status UNV Memantine (Namenda) 10 mg BID PO Last administered on 04/27/18at 20:17; Start 03/29/18 at 21:00 Potassium Chloride (Klor-Con) 20 meq 3X/WEEK PO Last administered on 04/26/18at 08:59; Start 03/31/18 at 09:00 Artificial Tears (Artificial Tears) 2 drop PRN QID PRN OU DRY EYE; Start at 18:00 Rivastigmine (Exelon) 1 patch DAILY TD Last administered on 04/27/18at 08:30; Start 03/30/18 at 09:00 Sodium Chloride (Saline Mist Nasal) 1 evan PRN TID PRN NS NASAL CONGESTION; Start 03/29/18 at 18:00 Warfarin Sodium (Coumadin) 3 mg DAILY16 PO Last administered on 04/05/18at 17:28 ; Start 03/29/18 at 18:00; Stop 04/05/18 at 17:37; Status DC Ondansetron HCl (Zofran Odt) 4 mg PRN Q4HRS PRN PO NAUSEA/VOMITING; Start at 17:30 Albuterol Sulfate (Ventolin) 2.5 mg PRN Q6HRS PRN NEB SHORTNESS OF BREATH; Start 03/29/18 at 18:00 Warfarin Sodium (Coumadin Per Physician) 1 each PRN DAILY PRN MC SEE COMMENTS; Start 03/29/18 at 18:00; Stop 04/21/18 at 16:18; Status DC Olanzapine (ZyPREXA ZYDIS) 2.5 mg PRN Q2HR PRN PO PSYCHOSIS Last administered on 04/21/18at 21:58; Start 03/29/18 at 19:15 Cefpodoxime Proxetil (Vantin) 100 mg BID PO Last administered on 04/05/18at 19: 24; Start 03/29/18 at 21:00; Stop 04/05/18 at 23:00; Status DC Amlodipine Besylate (Norvasc) 5 mg BID PRN PO ELEVATED BP, SEE COMMENTS Last administered on 03/30/18at 15:29; Start 03/30/18 at 15:30; Stop 04/06/18 at 19:36; Status DC Carvedilol (Coreg) 12.5 mg 1X ONCE PO Last administered on 03/30/18at 18:05; Start 03/30/18 at 18:00; Stop 03/30/18 at 18:01; Status DC Carvedilol (Coreg) 25 mg BIDWMEALS PO Last administered on 04/27/18 18:00; Start 03/31/18 at 08:00 Quetiapine Fumarate (SEROquel) 12.5 mg 1X ONCE PO Last administered on at 18:21; Start 03/31/18 at 18:15; Stop 03/31/18 at 18:18; Status DC Quetiapine Fumarate (SEROquel) 12.5 mg BID@0900,1700 PO Last administered on at 18:03; Start 04/01/18 at 09:00; Stop 04/18/18 at 07:08; Status DC Hydroxyzine HCl (Atarax) 25 mg PRN Q2HR PRN PO PSYCHOSIS Last administered on at 19:47; Start 04/03/18 at 23:15 Warfarin Sodium (Coumadin) 4 mg DAILY PO Last administered on 04/17/18at 07:35; Start 04/06/18 at 16:00; Stop 04/17/18 at 10:17; Status DC Warfarin Sodium (Coumadin) 1 mg 1X ONCE PO Last administered on 04/05/18at 17: 45; Start 04/05/18 at 17:45; Stop 04/05/18 at 17:46; Status DC Prazosin HCl (Minipress) 1 mg HS PO Last administered on 04/05/18at 19:34; Start 04/05/18 at 21:00; Stop 04/06/18 at 18:03; Status DC Prazosin HCl (Minipress) 2 mg HS PO Last administered on 04/27/18 20:18; Start 04/06/18 at 21:00 Furosemide (Lasix) 40 mg DAILY PO Last administered on 04/27/18at 08:30; Start at 09:00 Potassium Chloride (Klor-Con) 20 meq DAILYWBKFT PO Last administered on 08:29; Start 04/12/18 at 08:00 Warfarin Sodium (Coumadin) 4 mg DAILY16 PO Last administered on 04/27/18at 17:53 ; Start 04/18/18 at 16:00 Quetiapine Fumarate (SEROquel) 25 mg DAILY PO Last administered on 04/18/18at 07 :31; Start 04/18/18 at 09:00; Stop 04/19/18 at 07:01; Status DC Quetiapine Fumarate (SEROquel) 12.5 mg DAILYBFRSUP PO Last administered on 04/18at 17:58; Start 04/18/18 at 17:00; Stop 04/19/18 at 07:01; Status DC Quetiapine Fumarate (SEROquel) 37.5 mg DAILY PO Last administered on 04/22/18at 07:45; Start 04/19/18 at 09:00; Stop 04/22/18 at 11:05; Status DC Quetiapine Fumarate (SEROquel) 25 mg DAILYBFRSUP PO Last administered on at 17:05; Start 04/19/18 at 17:00; Stop 04/22/18 at 11:06; Status DC Divalproex Sodium (Depakote Sprinkles) 125 mg TID@0900,1300,1700 PO Last administered on 04/21/18at 17:05; Start 04/20/18 at 09:00; Stop 04/21/18 at 18:41 ; Status DC Warfarin Sodium (Coumadin Per Pharmacy) 1 each PRN DAILY PRN MC SEE COMMENTS Last administered on 04/22/18at 12:19; Start 04/21/18 at 16:30 Divalproex Sodium (Depakote Sprinkles) 250 mg TID@0900,1300,1700 PO Last administered on 04/24/18at 18:37; Start 04/22/18 at 09:00; Stop 04/24/18 at 18:45 ; Status DC Quetiapine Fumarate (SEROquel) 50 mg DAILY PO Last administered on 04/27/18at 08: 28; Start 6/29/18 at 09:00 Quetiapine Fumarate (SEROquel) 25 mg BID@1300,1700 PO Last administered on at 18:00; Start 04/22/18 at 13:00 Divalproex Sodium (Depakote Sprinkles) 375 mg TID@0900,1300,1700 PO Last administered on 04/27/18at 18:00; Start 04/25/18 at 09:00 Oxycodone HCl (Roxicodone) 5 mg PRN Q6HRS PRN PO PAIN Last administered on at 15:12; Start 04/25/18 at 12:15 Active Scripts Active Reported Hydroxyzine Hcl 25 Mg Tablet 25 Mg PO PRN Q2HR PRN Warfarin Sodium 4 Mg Tablet 4 Mg PO DAILY Seroquel (Quetiapine Fumarate) 25 Mg Tablet 12.5 Mg PO BID AT 06/1700 Prazosin Hcl 2 Mg Capsule 2 Mg PO HS Klor-Con M20 (Potassium Chloride) 20 Meq Tab.er.prt 20 Meq PO DAILYWBKFT Ondansetron Odt (Ondansetron) 4 Mg Tab.rapdis 4 Mg PO PRN Q4HRS PRN Zyprexa Zydis (Olanzapine) 5 Mg Tab.rapdis 2.5 Mg PO PRN Q2HR PRN Analgesic [place] (Methyl Salicylate/Menthol) 28 Gm Oint...g. 1 Evan TP PRN QID PRN Furosemide 40 Mg Tablet 40 Mg PO DAILY Carvedilol 25 Mg Tablet 25 Mg PO BIDWMEALS Vitamin D3 (Cholecalciferol (Vitamin D3)) 50,000 Unit Capsule 50,000 Unit PO WEEKLY Vitamin B-12 (Cyanocobalamin (Vitamin B-12)) 1,000 Mcg Tablet 1,000 Mcg PO DAILY Probiotic (Saccharomyces Boulardii) 250 Mg Capsule 250 Mg PO DAILY Norvasc (Amlodipine Besylate) 5 Mg Tablet 5 Mg PO DAILY Nephro-Vikram Tablet (Folic Acid/Vitamin B Comp W-C) 0.8 Mg Tablet 1 Tab PO DAILY PRN EXELON 9.5mg/24hr (Rivastigmine) 1 Each Patch.td24 1 Patch TD DAILY Saline Nasal [place] (Sodium Chloride) 30 Ml [place] 30 Ml NS TID Mag-Al Plus Xs Suspension (Mag Hydrox/Al Hydrox/Simeth) 30 Ml Oral.susp 15 Ml PO PRN Q6HRS PRN Potassium Chloride Oral Liquid (Potassium Chloride) 20 Meq/15 Ml Liquid 20 Meq PO 3X/WEEK Administer on Thursday, Thursday and Thursday Thera-M Tablet (Multivits,Ca,Minerals/Iron/Fa) 1 Each Tablet 1 Tab PO DAILY Namenda (Memantine Hcl) 5 Mg Tablet 10 Mg PO BID Voltaren (Diclofenac Sodium) 100 Gm Gel..gram. 1 Evan TP PRN Q12HR PRN Systane 0.3-0.4% Eye Drops (Propylene Glycol/Peg 400) 15 Ml Drops 2 Drop OU PRN QID PRN Senokot-S Tablet (Sennosides/Docusate Sodium) 1 Each Tablet 1 Tab PO BID Milk Of Magnesia (Magnesium Hydroxide) 2,400 Mg/10 Ml Oral.susp 30 Ml PO PRN QHS PRN Imodium A-D (Loperamide Hcl) 1 Mg/7.5 Ml Liquid 2 Mg PO PRN Q2HR PRN Max dose of 16mg in 24 hours Dulcolax (Bisacodyl) 10 Mg Supp.rect 10 Mg RC PRN DAILY PRN Atorvastatin Calcium 20 Mg Tablet 20 Mg PO QHS Aspir-Low (Aspirin) 81 Mg Tablet.dr 81 Mg PO DAILY Proair Hfa Inhaler (Albuterol Sulfate) 8.5 Gm Hfa.aer.ad 1 Puff INH PRN Q6HRS PRN Acetaminophen 500 Mg Tablet 500 Mg PO PRN Q4HRS PRN NTE 3000mg APAP in 24 hours from all sources I have reviewed the current psychotropics carefully including drug interactions. Risk benefit ratio favors no change other than as noted in my dictated progress note. Diagnosis: Problems: (1) Agitation (2) Acute ischemic stroke (3) Syncope (4) Hemiplegia affecting left nondominant side (5) TIA (transient ischemic attack) (6) Hypertension (7) Anxiety disorder (8) Dementia, vascular, with delusions (9) Dementia, vascular, with depression (10) Impulse control disorder (11) Acute kidney injury DEAN GARDNER MD Apr 27, 2018 20:44
--- NOTE | 2018-04-27 21:45 | PN ---
DATE: 04/26/2018 This is a late entry for 04/26/2018 and covers the elements not covered in my initial note of 04/26/2018. SUBJECTIVE: I met with the patient in the evening. The patient slept 7-1/4 hours previous evening. He has had a good day, no yelling during the day, slightly yelling late in the evening. REVIEW OF SYSTEMS: Ambulation impaired, in wheelchair. No CV, , pulmonary, eye system symptoms on review. When questioned, he said he had a "good day." MENTAL STATUS EXAM: Oriented to himself. Insight, judgment, recent and remote memory, attention, concentration, fund of knowledge poor, consistent with his diagnosis mentioned in my initial note. PLAN: Continue psychotropics from initial note. Transition to shelter this week. MAN Beny GARDNER MD DR: DAMIEN/rose JOB#: [id number] / [id number]
--- NOTE | 2018-04-27 23:06 | NUR ---
Nursing Note Patient is located in day room for shift assessment and medication pass. Patient is alert and oriented to self only. Patient is appropriate and interactive during interaction with this nurse and other patients. Patient is compliant with medications and assessment. Patient took medication whole in apple sauce. Patient is currently in bed sleeping.
[2018-04-28 06:22] VITALS: BP 142/75
[2018-04-28 07:41] LABS: BASO % 0 % (0-3); EOS # 0.2 x10^3/uL (0.0-0.7); EOS % 5 % (0-3); HEMATOCRIT 34.6 % (39.0-53.0); HEMOGLOBIN 11.5 g/dL (13.0-17.5); LYMPH # 1.7 x10^3/uL (1.0-4.8); LYMPH % 37 % (24-48); MEAN CORPUSCULAR HEMOGLOBIN 30 pg (25-35); MEAN CORPUSCULAR HGB CONC 33 g/dL (31-37); MEAN CORPUSCULAR VOLUME 91 fL (79-100); MONO # 0.5 x10^3/uL (0.0-1.1); MONO % 11 % (0-9); NEUT # 2.1 x10^3uL (1.8-7.7); NEUT % 46 % (31-73); PLATELET COUNT 151 x10^3/uL (140-400); RED BLOOD COUNT 3.79 x10^6/uL (4.30-5.70); RED CELL DISTRIBUTION WIDTH 13.6 % (11.5-14.5); WHITE BLOOD COUNT 4.6 x10^3/uL (4.0-11.0)
[2018-04-28 07:53] LABS: ALBUMIN 2.9 g/dL (3.4-5.0); ALBUMIN/GLOBULIN RATIO 0.8 (1.0-1.7); ALK PHOS 86 U/L (46-116); ALT (SGPT) 17 U/L (16-63); ANION GAP 8 (6-14); AST (SGOT) 14 U/L (15-37); BLOOD UREA NITROGEN 21 mg/dL (8-26); BUN/CREATININE RATIO 16 (6-20); CALCIUM 8.8 mg/dL (8.5-10.1); CARBON DIOXIDE 29 mmol/L (21-32); CHLORIDE 102 mmol/L (98-107); CREATININE 1.3 mg/dL (0.7-1.3); GFR 66.4; GLUCOSE 163 mg/dL (70-99); POTASSIUM 4.2 mmol/L (3.5-5.1); SODIUM 139 mmol/L (136-145); TOTAL BILIRUBIN 0.4 mg/dL (0.2-1.0); TOTAL PROTEIN 6.5 g/dL (6.4-8.2)
[2018-04-28 08:03] LABS: VAL ACID 52 mcg/mL (50-100)
[2018-04-28] MEDS: amLODIPine BESYLATE 5 MG TABLET PO SCH (08:39)
[2018-04-28] MEDS: LACTOBACILLUS RHAMNOSUS GG 1 CAPSULE. PO SCH ×2 (08:39→20:27)
[2018-04-28] MEDS: SENNOSIDES/DOCUSATE 8.6/50MG TABLET. PO SCH ×2 (08:39→20:27)
[2018-04-28] MEDS: ASPIRIN ENTERIC COATED 81 MG TABLET.DR. PO SCH (08:40)
[2018-04-28] MEDS: QUEtiapine 50 MG TABLET. PO SCH (08:40)
[2018-04-28] MEDS: MEMANTINE 10 MG TABLET. PO SCH ×2 (08:40→20:31)
[2018-04-28] MEDS: CYANOCOBALAMIN (VITAMIN B-12) 1,000 MCG TABLET. PO SCH (08:40)
[2018-04-28] MEDS: MULTIVITAMIN with MINERAL TABLET. PO SCH (08:40)
[2018-04-28] MEDS: FUROSEMIDE 40 MG TABLET PO SCH (08:40)
[2018-04-28] MEDS: POTASSIUM CHLORIDE 20 MEQ TABLET.ER. PO SCH ×2 (08:40→08:43)
[2018-04-28] MEDS: DIVALPROEX 125 MG CAP.SPRINK PO SCH ×3 (08:41→18:01)
[2018-04-28] MEDS: RIVASTIGMINE 9.5MG PATCH. TD SCH (08:41)
[2018-04-28] MEDS: CARVEDILOL 12.5 MG TABLET PO SCH ×2 (08:41→18:01)
--- NOTE | 2018-04-28 10:14 | NUR ---
[facility] Social Work Discharge Planning Form Patient Name HUY TEAGUE Admit Date: 03/29/18 DISCHARGE PLAN Discharge Destination: return to [facility] Transportation: Facility to cotton picker 04/29/18 @ 10:30-11:30 DISCHARGE TO FACILITY Facility: [facility] Address: [address] [place] [address] Contact Name: PCP: at facility w/in 7-10 days of dc Psychiatrist: at facility w/in 7-10 days of dc
--- NOTE | 2018-04-28 11:29 | NUR ---
Behavior Intervention Response and Plan: BIRP Note: Behavior: Assumed Care of patient, patient located in Hallway at shift change. Patient exhibited the following behavior Disorganized, Calm, Compliant. Brief assessment on rounds of vital signs, medication needs, lab studies, and pain. Treatment plan problems 1-2. Intervention: Patient assessed and the following interventions initiated safety checks 15 Minute Checks Personal Alarm in place , Cognitive Assessment , Head to toe Assessment. Response: After interactions and interventions patient responded in the following manner, Calm , Disorganized ,Compliant. Continue to assess behaviors and condition will continue to monitor throughout the shift as needed. Patient educated on ADL's, and hand hygiene. 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 Continue to assess patient for changes in above assessment. Monitor for medication needs, pain, and safety concerns. Hourly rounding performed to ensure safe environment.
[2018-04-28] MEDS: QUEtiapine 25 MG TABLET. PO SCH ×2 (12:54→18:01)
[2018-04-28] MEDS: ACETAMINOPHEN 500 MG TABLET PO PRN (14:50)
--- NOTE | 2018-04-28 15:00 | NUR ---
WEEKLY ACTIVITY THERAPY NOTE Date of Admission: 03/29/2018 Date of AT Assessment: 03/30/2018 Goal aimed: Pt will increase his time management and recreation education. Initial goal: Pt will engage in five groups per week. Goal changes 04/22: Pt. will engage fully in five groups per week Weekly progress towards goal: achieved Group participation level: varies Behaviors observed: When engaged and interested, Pt. will chat and joke with staff as well as other patients; Pt. is able to express needs easily; Pt. has occasional noncompliant and combative behaviors with staff, resulting in the use of the secured hallway; These behaviors seemed to decrease in frequency as the week went on; Pt. seems to enjoy music, art, and playing games with others as well as spending time outside Plan: no change to goal
[2018-04-28 16:23] VITALS: BP 135/75
[2018-04-28] MEDS: WARFARIN 4 MG TABLET. PO SCH (18:01)
[2018-04-28] MEDS: ATORVASTATIN CALCIUM 20 MG TABLET PO SCH (20:27)
[2018-04-28] MEDS: PRAZOSIN 1 MG CAPSULE. PO SCH (20:31)
[2018-04-28] MEDS: DICLOFENAC SODIUM 1% TOPICAL GEL 100GM TUBE. TP PRN (20:32)
--- NOTE | 2018-04-28 20:42 | PDOC ---
Exam Note: [place] Note: Please also refer to the separate dictated note~for this date of service dictated separately.~Patient seen individually. Discussed the patient with Nursing staff reviewed the chart.~Reviewed interim history and current functioning. Reviewed vital signs,~Labs/ Radiology~and current medications noted below. Continue current treatment with the changes noted in the dictated addendum note Assessment: Vital Signs: Vital Signs Date Time Temp Pulse Resp B/P (MAP) Pulse Ox O2 Delivery O2 Flow Rate FiO2 04/28/18 20:31 75 134/83 04/28/18 16:23 97.4 18 96 04/25/18 06:16 Room Air I&O Intake and Output 04/28/18 07:00 Intake Total 1740 ml Balance 1740 ml Intake Oral 1740 ml # Voids 1 # Bowel Movements 1 Labs: Laboratory Tests Test 04/28/18 07:07 04/28/18 07:19 White Blood Count 4.6 x10^3/uL (4.0-11.0) Red Blood Count 3.79 x10^6/uL (4.30-5.70) L Hemoglobin 11.5 g/dL (13.0-17.5) L Hematocrit 34.6 % (39.0-53.0) L Mean Corpuscular Volume 91 fL (79-100) Mean Corpuscular Hemoglobin 30 pg (25-35) Mean Corpuscular Hemoglobin Concent 33 g/dL (31-37) Red Cell Distribution Width 13.6 % (11.5-14.5) Platelet Count 151 x10^3/uL (140-400) Neutrophils (%) (Auto) 46 % (31-73) Lymphocytes (%) (Auto) 37 % (24-48) Monocytes (%) (Auto) 11 % (0-9) H Eosinophils (%) (Auto) 5 % (0-3) H Basophils (%) (Auto) 0 % (0-3) Neutrophils # (Auto) 2.1 x10^3uL (1.8-7.7) Lymphocytes # (Auto) 1.7 x10^3/uL (1.0-4.8) Monocytes # (Auto) 0.5 x10^3/uL (0.0-1.1) Eosinophils # (Auto) 0.2 x10^3/uL (0.0-0.7) Basophils # (Auto) 0.0 x10^3/uL (0.0-0.2) Sodium Level 139 mmol/L (136-145) Potassium Level 4.2 mmol/L (3.5-5.1) Chloride Level 102 mmol/L (98-107) Carbon Dioxide Level 29 mmol/L (21-32) Anion Gap 8 (6-14) Blood Urea Nitrogen 21 mg/dL (8-26) Creatinine 1.3 mg/dL (0.7-1.3) Estimated GFR (Cockcroft-Gault) 66.4 BUN/Creatinine Ratio 16 (6-20) Glucose Level 163 mg/dL (70-99) H Calcium Level 8.8 mg/dL (8.5-10.1) Total Bilirubin 0.4 mg/dL (0.2-1.0) Aspartate Amino Transferase (AST) 14 U/L (15-37) L Alanine Aminotransferase (ALT) 17 U/L (16-63) Alkaline Phosphatase 86 U/L (46-116) Total Protein 6.5 g/dL (6.4-8.2) Albumin 2.9 g/dL (3.4-5.0) L Albumin/Globulin Ratio 0.8 (1.0-1.7) L Valproic Acid Level 52 mcg/mL (50-100) Valproic Acid Last Dose Date 04/27/18 Valproic Acid Last Dose Time 1700 Current Medications: Meds: Current Medications Acetaminophen (Tylenol) 650 mg PRN Q6HRS PRN PO PAIN / TEMP; Start 03/29/18 at 16:30; Status Cancel Multi-Ingredient Ointment (Analgesic Henderson) 1 evan PRN QID PRN TP MUSCLE PAIN; Start 03/29/18 at 16:30 Al Hydroxide/Mg Hydroxide (Mylanta Plus Xs) 15 ml PRN AFTMEALHC PRN PO DYSPEPSIA; Start 03/29/18 at 16:30 Magnesium Hydroxide (Milk Of Magnesia) 2,400 mg PRN QHS PRN PO CONSTIPATION; Start 03/29/18 at 16:30 Albuterol Sulfate (Ventolin Hfa) 1 puff PRN Q6HRS PRN INH SHORTNESS OF BREATH; Start 03/29/18 at 17:00; Status UNV Atorvastatin Calcium (Lipitor) 20 mg QHS PO Last administered on 04/28/18 20:27 ; Start 03/29/18 at 21:00 Vitamin D (Vitamin D3) 50,000 unit WEEKLY PO Last administered on 04/24/18 07: 59; Start 04/03/18 at 09:00 Cyanocobalamin (Vitamin B-12) 1,000 mcg DAILY PO Last administered on 04/28/18 08:40; Start 03/30/18 at 09:00 Diclofenac Sodium (Voltaren) 1 evan PRN Q12HR PRN TP PAIN Last administered on 20:32; Start 03/29/18 at 17:00 Al Hydroxide/Mg Hydroxide (Mylanta Plus Xs) 15 ml PRN Q6HRS PRN PO DYSPEPSIA; Start 03/29/18 at 17:00; Status Cancel Multivitamins/ Calcium (Thera-M Plus) 1 tab DAILY PO Last administered on 08:40; Start 03/30/18 at 09:00 Lactobacillus Rhamnosus (Culturelle) 1 cap BID PO Last administered on 20:27; Start 03/29/18 at 21:00 Senna/Docusate Sodium (Senna Plus) 1 tab BID PO Last administered on 04/28/18 20:27; Start 03/29/18 at 21:00 Acetaminophen (Tylenol) 500 mg PRN Q4HRS PRN PO PAIN / TEMP Last administered on 04/28/18 14:50; Start 03/29/18 at 17:45 Amlodipine Besylate (Norvasc) 5 mg DAILY PO Last administered on 04/28/18 08:39 ; Start 03/30/18 at 09:00 Aspirin (Aspirin Enteric Coated) 81 mg DAILY PO Last administered on 04/28/18 08:40; Start 03/30/18 at 09:00 Bisacodyl (Dulcolax Supp) 10 mg PRN DAILY PRN GA CONSTIPATION; Start 03/29/18 at 17:45 Carvedilol (Coreg) 12.5 mg BIDWMEALS PO Last administered on 03/30/18 16:44; Start 03/30/18 at 08:00; Stop 03/30/18 at 17:57; Status DC Multivit/Ca Carb/ B Cmplx/FA/Prenat (Nephro-Vikram) 1 tab PRN DAILY PRN PO SUPPLEMENT; Start 03/30/18 at 09:00 Loperamide HCl (Imodium) 2 mg PRN Q2HR PRN PO DIARRHEA; Start 03/29/18 at 17:45 Non-Formulary Medication (Magnesium Hydroxide (Milk Of Magnesia)) 30 ml PRN QHS PRN PO CONSTIPATION; Start 03/29/18 at 17:00; Status UNV Memantine (Namenda) 10 mg BID PO Last administered on 04/28/18at 20:31; Start 03/29/18 at 21:00 Potassium Chloride (Klor-Con) 20 meq 3X/WEEK PO Last administered on 04/28/18at 08:43; Start 03/31/18 at 09:00 Artificial Tears (Artificial Tears) 2 drop PRN QID PRN OU DRY EYE; Start at 18:00 Rivastigmine (Exelon) 1 patch DAILY TD Last administered on 04/28/18at 08:41; Start 03/30/18 at 09:00 Sodium Chloride (Saline Mist Nasal) 1 evan PRN TID PRN NS NASAL CONGESTION; Start 03/29/18 at 18:00 Warfarin Sodium (Coumadin) 3 mg DAILY16 PO Last administered on 04/05/18at 17:28 ; Start 03/29/18 at 18:00; Stop 04/05/18 at 17:37; Status DC Ondansetron HCl (Zofran Odt) 4 mg PRN Q4HRS PRN PO NAUSEA/VOMITING; Start at 17:30 Albuterol Sulfate (Ventolin) 2.5 mg PRN Q6HRS PRN NEB SHORTNESS OF BREATH; Start 03/29/18 at 18:00 Warfarin Sodium (Coumadin Per Physician) 1 each PRN DAILY PRN MC SEE COMMENTS; Start 03/29/18 at 18:00; Stop 04/21/18 at 16:18; Status DC Olanzapine (ZyPREXA ZYDIS) 2.5 mg PRN Q2HR PRN PO PSYCHOSIS Last administered on 04/21/18at 21:58; Start 03/29/18 at 19:15 Cefpodoxime Proxetil (Vantin) 100 mg BID PO Last administered on 04/05/18at 19: 24; Start 03/29/18 at 21:00; Stop 04/05/18 at 23:00; Status DC Amlodipine Besylate (Norvasc) 5 mg BID PRN PO ELEVATED BP, SEE COMMENTS Last administered on 03/30/18at 15:29; Start 03/30/18 at 15:30; Stop 04/06/18 at 19:36; Status DC Carvedilol (Coreg) 12.5 mg 1X ONCE PO Last administered on 03/30/18at 18:05; Start 03/30/18 at 18:00; Stop 03/30/18 at 18:01; Status DC Carvedilol (Coreg) 25 mg BIDWMEALS PO Last administered on 04/28/18 18:01; Start 03/31/18 at 08:00 Quetiapine Fumarate (SEROquel) 12.5 mg 1X ONCE PO Last administered on 18:21; Start 03/31/18 at 18:15; Stop 03/31/18 at 18:18; Status DC Quetiapine Fumarate (SEROquel) 12.5 mg BID@0900,1700 PO Last administered on at 18:03; Start 04/01/18 at 09:00; Stop 04/18/18 at 07:08; Status DC Hydroxyzine HCl (Atarax) 25 mg PRN Q2HR PRN PO PSYCHOSIS Last administered on at 19:47; Start 04/03/18 at 23:15 Warfarin Sodium (Coumadin) 4 mg DAILY PO Last administered on 04/17/18at 07:35; Start 04/06/18 at 16:00; Stop 04/17/18 at 10:17; Status DC Warfarin Sodium (Coumadin) 1 mg 1X ONCE PO Last administered on 04/05/18at 17: 45; Start 04/05/18 at 17:45; Stop 04/05/18 at 17:46; Status DC Prazosin HCl (Minipress) 1 mg HS PO Last administered on 04/05/18at 19:34; Start 04/05/18 at 21:00; Stop 04/06/18 at 18:03; Status DC Prazosin HCl (Minipress) 2 mg HS PO Last administered on 04/28/18at 20:31; Start 04/06/18 at 21:00 Furosemide (Lasix) 40 mg DAILY PO Last administered on 04/28/18 08:40; Start at 09:00 Potassium Chloride (Klor-Con) 20 meq DAILYWBKFT PO Last administered on at 08:40; Start 04/12/18 at 08:00 Warfarin Sodium (Coumadin) 4 mg DAILY16 PO Last administered on 04/28/18 18:01 ; Start 04/18/18 at 16:00 Quetiapine Fumarate (SEROquel) 25 mg DAILY PO Last administered on 04/18/18at 07 :31; Start 04/18/18 at 09:00; Stop 04/19/18 at 07:01; Status DC Quetiapine Fumarate (SEROquel) 12.5 mg DAILYBFRSUP PO Last administered on 04/18at 17:58; Start 04/18/18 at 17:00; Stop 04/19/18 at 07:01; Status DC Quetiapine Fumarate (SEROquel) 37.5 mg DAILY PO Last administered on 04/22/18at 07:45; Start 04/19/18 at 09:00; Stop 04/22/18 at 11:05; Status DC Quetiapine Fumarate (SEROquel) 25 mg DAILYBFRSUP PO Last administered on at 17:05; Start 04/19/18 at 17:00; Stop 04/22/18 at 11:06; Status DC Divalproex Sodium (Depakote Sprinkles) 125 mg TID@0900,1300,1700 PO Last administered on 04/21/18at 17:05; Start 04/20/18 at 09:00; Stop 04/21/18 at 18:41 ; Status DC Warfarin Sodium (Coumadin Per Pharmacy) 1 each PRN DAILY PRN MC SEE COMMENTS Last administered on 04/22/18at 12:19; Start 04/21/18 at 16:30 Divalproex Sodium (Depakote Sprinkles) 250 mg TID@0900,1300,1700 PO Last administered on 04/24/18at 18:37; Start 04/22/18 at 09:00; Stop 04/24/18 at 18:45 ; Status DC Quetiapine Fumarate (SEROquel) 50 mg DAILY PO Last administered on 04/28/18at 08: 40; Start 04/23/18 at 09:00 Quetiapine Fumarate (SEROquel) 25 mg BID@1300,1700 PO Last administered on at 18:01; Start 04/22/18 at 13:00 Divalproex Sodium (Depakote Sprinkles) 375 mg TID@0900,1300,1700 PO Last administered on 04/28/18at 18:01; Start 04/25/18 at 09:00 Oxycodone HCl (Roxicodone) 5 mg PRN Q6HRS PRN PO PAIN Last administered on at 15:12; Start 04/25/18 at 12:15 Active Scripts Active Reported Hydroxyzine Hcl 25 Mg Tablet 25 Mg PO PRN Q2HR PRN Warfarin Sodium 4 Mg Tablet 4 Mg PO DAILY Seroquel (Quetiapine Fumarate) 25 Mg Tablet 12.5 Mg PO BID AT 06/1700 Prazosin Hcl 2 Mg Capsule 2 Mg PO HS Klor-Con M20 (Potassium Chloride) 20 Meq Tab.er.prt 20 Meq PO DAILYWBKFT Ondansetron Odt (Ondansetron) 4 Mg Tab.rapdis 4 Mg PO PRN Q4HRS PRN Zyprexa Zydis (Olanzapine) 5 Mg Tab.rapdis 2.5 Mg PO PRN Q2HR PRN Analgesic Henderson (Methyl Salicylate/Menthol) 28 Gm Oint...g. 1 Evan TP PRN QID PRN Furosemide 40 Mg Tablet 40 Mg PO DAILY Carvedilol 25 Mg Tablet 25 Mg PO BIDWMEALS Vitamin D3 (Cholecalciferol (Vitamin D3)) 50,000 Unit Capsule 50,000 Unit PO WEEKLY Vitamin B-12 (Cyanocobalamin (Vitamin B-12)) 1,000 Mcg Tablet 1,000 Mcg PO DAILY Probiotic (Saccharomyces Boulardii) 250 Mg Capsule 250 Mg PO DAILY Norvasc (Amlodipine Besylate) 5 Mg Tablet 5 Mg PO DAILY Nephro-Vikram Tablet (Folic Acid/Vitamin B Comp W-C) 0.8 Mg Tablet 1 Tab PO DAILY PRN EXELON 9.5mg/24hr (Rivastigmine) 1 Each Patch.td24 1 Patch TD DAILY Saline Nasal [place] (Sodium Chloride) 30 Ml [place] 30 Ml NS TID Mag-Al Plus Xs Suspension (Mag Hydrox/Al Hydrox/Simeth) 30 Ml Oral.susp 15 Ml PO PRN Q6HRS PRN Potassium Chloride Oral Liquid (Potassium Chloride) 20 Meq/15 Ml Liquid 20 Meq PO 3X/WEEK Administer on Thursday, Thursday and Thursday Thera-M Tablet (Multivits,Ca,Minerals/Iron/Fa) 1 Each Tablet 1 Tab PO DAILY Namenda (Memantine Hcl) 5 Mg Tablet 10 Mg PO BID Voltaren (Diclofenac Sodium) 100 Gm Gel..gram. 1 Evan TP PRN Q12HR PRN Systane 0.3-0.4% Eye Drops (Propylene Glycol/Peg 400) 15 Ml Drops 2 Drop OU PRN QID PRN Senokot-S Tablet (Sennosides/Docusate Sodium) 1 Each Tablet 1 Tab PO BID Milk Of Magnesia (Magnesium Hydroxide) 2,400 Mg/10 Ml Oral.susp 30 Ml PO PRN QHS PRN Imodium A-D (Loperamide Hcl) 1 Mg/7.5 Ml Liquid 2 Mg PO PRN Q2HR PRN Max dose of 16mg in 24 hours Dulcolax (Bisacodyl) 10 Mg Supp.rect 10 Mg RC PRN DAILY PRN Atorvastatin Calcium 20 Mg Tablet 20 Mg PO QHS Aspir-Low (Aspirin) 81 Mg Tablet.dr 81 Mg PO DAILY Proair Hfa Inhaler (Albuterol Sulfate) 8.5 Gm Hfa.aer.ad 1 Puff INH PRN Q6HRS PRN Acetaminophen 500 Mg Tablet 500 Mg PO PRN Q4HRS PRN NTE 3000mg APAP in 24 hours from all sources I have reviewed the current psychotropics carefully including drug interactions. Risk benefit ratio favors no change other than as noted in my dictated progress note. Diagnosis: Problems: (1) Agitation (2) Acute ischemic stroke (3) Syncope (4) Hemiplegia affecting left nondominant side (5) TIA (transient ischemic attack) (6) Hypertension (7) Anxiety disorder (8) Dementia, vascular, with delusions (9) Dementia, vascular, with depression (10) Impulse control disorder (11) Acute kidney injury DEAN GARDNER MD Apr 28, 2018 20:42
[2018-04-29] MEDS ORDERED: OXYC5TAB88 PO (04:58)
[2018-04-29] MEDS ORDERED: DIVA125C PO (05:08)
[2018-04-29] MEDS ORDERED: QUET50TA5 PO (05:11)
[2018-04-29 05:54] VITALS: BP 147/81
--- NOTE | 2018-04-29 06:24 | NUR ---
Nursing Note Patient found in day room for shift assessment. Patient is alert and oriented to self only. Patient took medications whole in apple sauce. Patient very pleasant during interaction. Patient currently awake in day room.
[2018-04-29] MEDS: QUEtiapine 50 MG TABLET. PO SCH (08:18)
[2018-04-29] MEDS: RIVASTIGMINE 9.5MG PATCH. TD SCH (08:18)
[2018-04-29] MEDS: MULTIVITAMIN with MINERAL TABLET. PO SCH (08:18)
[2018-04-29] MEDS: ASPIRIN ENTERIC COATED 81 MG TABLET.DR. PO SCH (08:18)
[2018-04-29] MEDS: MEMANTINE 10 MG TABLET. PO SCH (08:18)
[2018-04-29] MEDS: SENNOSIDES/DOCUSATE 8.6/50MG TABLET. PO SCH (08:18)
[2018-04-29] MEDS: CYANOCOBALAMIN (VITAMIN B-12) 1,000 MCG TABLET. PO SCH (08:18)
[2018-04-29] MEDS: LACTOBACILLUS RHAMNOSUS GG 1 CAPSULE. PO SCH (08:18)
[2018-04-29] MEDS: FUROSEMIDE 40 MG TABLET PO SCH (08:18)
[2018-04-29] MEDS: POTASSIUM CHLORIDE 20 MEQ TABLET.ER. PO SCH (08:18)
[2018-04-29] MEDS: amLODIPine BESYLATE 5 MG TABLET PO SCH (08:19)
[2018-04-29] MEDS: DIVALPROEX 125 MG CAP.SPRINK PO SCH (08:19)
[2018-04-29 08:25] VITALS: BP 147/81
[2018-04-29] MEDS: CARVEDILOL 12.5 MG TABLET PO SCH (08:25)
--- NOTE | 2018-04-29 08:31 | NUR ---
SW contacted pt's brother/dpoa to notify of dc today.
--- NOTE | 2018-04-29 11:03 | NUR ---
Pharmacy Warfarin Dosing Note S:Pharmacy consulted to assist with anticoagulation therapy started with target INR: 2 -3 O:HUY TEAGUE is a 67 year old M with Stroke LABS: Last INR: 3.2 Last HGB: 11.5 Last HCT: 34.6 Last PLT: 346 Last dose of 4 mg given on 04/28/18 at 1801 Previous Regimen: Coumadin 4mg po daily Vitamin K given: N Drug Interaction Changes: Ongoing Drug Interactions: A:INR Above desired Range. Target Range for this patient is: 2 -3 P: Warfarin dose: Hold Today at 1600 Bridge Therapy: None Next INR due 04/30/18 Pharmacy anticoagulation service will continue to follow. LITA MCDOWELL, 04/29/18 1101
--- NOTE | 2018-04-29 12:46 | NUR ---
Transition Record was faxed to follow-up provider with the following elements: Reason for admission, procedures, tests, principal diagnosis, pending studies, patient instructions, 18/05 contact information for unit, phone number to obtain pending test results, plan for follow-up care, physician follow-up, advanced directive information, and medication list with dose, duration and instructions. This information was included in the following documents: History and physical, lab results, study results, progress notes, social work planning form, DC instruction form, patient visit summary, and medication reconciliation form. Date & time record faxed:04/29/18 1030 Record faxed to: [facility] Record discussed with/ report given to: BING for nurse
--- NOTE | 2018-04-29 22:25 | PN ---
DATE: 04/27/2018 PSYCHIATRIC PROGRESS NOTE This is a late entry 04/27/2018, covers elements not covered in my initial note. SUBJECTIVE: I met with the patient in the evening. The patient slept 7-1/2 hours previous evening. Ambulation impaired, in wheelchair. REVIEW OF SYSTEMS: No CV, , pulmonary, eye, ENT system symptoms on review. MENTAL STATUS EXAM: Oriented to himself. Insight, judgment, recent and remote memory, attention, concentration, fund of knowledge poor, consistent with his diagnoses from initial note. PLAN: Continue psychotropics from my initial note. MAN AshlynBety GARDNER MD DR: DAMIEN/rose JOB#: [id number] / [id number]
--- NOTE | 2018-04-29 22:27 | PN ---
DATE: 04/28/2018 PSYCHIATRIC PROGRESS NOTE This is a late entry 04/28/2018, covers elements not covered in my initial note. SUBJECTIVE: I met with the patient in the afternoon. The patient slept 7-1/2 hours previous evening, less agitation. No yelling. REVIEW OF SYSTEMS: No CV, , pulmonary, eye, ENT system symptoms on review. He is in a wheelchair. MENTAL STATUS EXAM: Oriented to himself. Insight, judgment, recent and remote memory, attention, concentration, fund of knowledge poor, consistent with his diagnosis from initial note. PLAN: No change from a psychiatric standpoint. DEAN GARDNER MD DR: DAMIEN/rose JOB#: [id number] / [id number]
--- NOTE | 2018-04-30 22:28 | DS ---
DATE OF DISCHARGE: 04/29/2018 This is a late entry, 04/29/2018, covers the elements not covered in my initial note, 04/29/2018. SUBJECTIVE: I met with the patient individually. REASON FOR ADMISSION: Please refer to the admission history for details. Briefly, the patient is a 67-year-old -[place] male referred from [facility] initially to us on account of progressively worsening dementia, Alzheimer's, vascular type with behavioral disturbance. He was increasingly agitated, labile, aggressive, [facility] the jail, unmanageable, yelling and screaming. He had failed outpatient psychiatric interventions resulting in this referral. He was stabilized in the ICU after he was evaluated in the ER and behaviors persisted and then he was referred to us. SIGNIFICANT FINDINGS AND CLINICAL COURSE: Following admission, the patient was seen daily individually by myself from a psychiatric standpoint, medical followup per Dr. Pennington/Dr. Peters/Dr. Jones. He had a very difficult course during the hospitalization initially. He was yelling, screaming, intermittently agitated, other times he was much calmer. Adjustments were made in his psychotropics and he finally seemed to respond to a combination of Namenda 10 mg twice a day, Exelon patch 9.5 mg a day, Zyprexa p.r.n., Seroquel 50 mg in the morning and 25 mg at 1300 and 1700, hydroxyzine p.r.n., prazosin 2 mg at bedtime for his symptoms of PTSD consequent to his War experiences in the past. He is also on Depakote Sprinkles 375 mg 3 times a day with a therapeutic valproic acid level. Gradually mood appeared to improve. He was still forgetful, confused, but much less labile and not aggressive. Prior to discharge, 04/29/2018. REVIEW OF SYSTEMS: Ambulation impaired, in wheelchair. No CV, , pulmonary, eye, ENT system symptoms on review. Reliability poor. MENTAL STATUS EXAM: Oriented to himself. Insight, judgment, recent and remote memory, attention, concentration, fund of knowledge poor, consistent with his diagnosis. CONDITION AT DISCHARGE: Improved. FINAL DIAGNOSES: Major neurocognitive disorder, Alzheimer, vascular with delusion, depression, behavioral disturbance; anxiety disorder, unspecified; impulse control disorder, unspecified. Rest unchanged from admission. DISCHARGE MEDICATIONS: Please refer to the [facility]. DISCHARGE INSTRUCTIONS: Outpatient psychiatric and medical followup at the jail. DEAN GARDNER MD DR: DAMIEN/rose JOB#: [id number] / [id number]
--- NOTE | 2018-05-01 02:10 | PN ---
DATE: 04/29/2018 This late entry 04/29/2018 covers elements not covered in my initial note. SUBJECTIVE: I met with the patient in the evening, staffed at a treatment team meeting in the morning. DICTATION ENDS HERE DEAN GARDNER MD DR: DAMIEN/rose JOB#: [id number] / [id number]
== END 2018-04-29 12:48 | DRG 56 ==
LOC: GEROPSY 16:22 → EEVIPCON 16:22
PROVIDERS: ADMIT Psychiatry & Neurology Psychiatry; ATTEND Psychiatry & Neurology Psychiatry
DX: G30.9 Alzheimer's disease, unspecified (principal); I63.511 Cerebral infarction due to unspecified occlusion or stenosis of right middle cerebral artery; N17.9 Acute kidney failure, unspecified; N39.0 Urinary tract infection, site not specified; F01.51 Vascular dementia, unspecified severity, with behavioral disturbance; F02.81 Dementia in other diseases classified elsewhere, unspecified severity, with behavioral disturbance; I69.354 Hemiplegia and hemiparesis following cerebral infarction affecting left non-dominant side; F41.9 Anxiety disorder, unspecified; F32.9 Major depressive disorder, single episode, unspecified; E78.5 Hyperlipidemia, unspecified; F43.10 Post-traumatic stress disorder, unspecified; F63.9 Impulse disorder, unspecified; I11.0 Hypertensive heart disease with heart failure; I48.0 Paroxysmal atrial fibrillation; I50.9 Heart failure, unspecified; M19.90 Unspecified osteoarthritis, unspecified site; Z87.891 Personal history of nicotine dependence
CPT/HCPCS: 36415; 70450; 73560; 80053; 80061; 80164; 81001; 82947; 83036; 83735; 84550; 85025; 85027; 85610; 85651; 86140

== ENCOUNTER 2020-10-30 19:38 | Inpatient (IN) | payer MEDICARE, OTHER ==
[~2020-10-30] VITALS: Ht 188 cm; Wt 132.1 kg
[~2020-10-30 19:38] MED LIST changes: +ALBU2.5V8 INH; -ALBU8.5H8 INH; +CYAN-25 PO; -CYAN10005 PO; -DIVA125C PO; +DIVA125C2 PO; +HYDR25TA PO; -LISI40TA PO; +LISI40TA6 PO; -MAGN2400 PO; +MAGN24003 PO; +METH28OI2 TP; +OLAN5TAB99 PO; +ONDA4TAB12 PO; +OXYC5TAB88 PO; +POTA20TA4 PO; +PRAZ2CAP2 PO; +QUET50TA5 PO; +SERT-269 PO; -SERT100T8 PO; +TRAZ-120 PO; -TRAZ-85 PO
--- NOTE | 2020-10-30 19:56 | PHYS DOC ---
Past History Past Medical History: Anxiety, CHF, Constipation, CVA, Depression, High Cholesterol, Hypertension, UTI Past Surgical History: No Surgical History, Tonsillectomy Alcohol Use: None Drug Use: None General Adult HPI: HPI: "Oh,, Oh.." Patient is a 70 year old male who presents with above hx and complaints mental status change and fever. Patient resident of [facility] since 2014, except for evaluation of [facility] for Behavioral issues. Pt. Re- Admitted in January 08, 2017. Patient sent in because of fever and mental status change. Patient less interactive today. 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 Patient is reportedly still a full code. Patient's primary physician is Dr. Staley. Pt. has been exposed to other half-way pts. that have COVID, and currently clinical diagnosis of COVID. Review of Systems: Review of Systems: Pt. poor historian- per [place] Constitutional: Hx of fever Eyes: Denies change in visual acuity HENT: Denies nasal congestion or sore throat Respiratory: Hx of cough Cardiovascular: Denies chest pain or edema GI: Denies abdominal pain, nausea, vomiting, bloody stools or diarrhea : Denies dysuria Musculoskeletal: Denies back pain or joint pain Integument: Denies rash Neurologic: Hx change of his baseline mental status Endocrine: Denies polyuria or polydipsia Lymphatic: Denies swollen glands Psychiatric: Hx of depression or anxiety Family History: Family History: Not currently available Current Medications: Current Meds: See nursing for group home medications Allergies: Allergies: Allergies Coded Allergies Type Severity Reaction Last Updated Verified No Known Drug Allergies 11/08/15 No Physical Exam: PE: Constitutional: Chronically ill in appearance, HENT: Normocephalic, atraumatic, bilateral external ears normal, oropharynx dry, no oral exudates, nose swollen turbinates and some rhinorrhea. Eyes: PERRLA, EOMI, conjunctiva normal, no discharge. [] Neck: Normal range of motion, no tenderness, supple, no stridor. No bruits appreciated. Did have some JVD Cardiovascular: Irregular heart rate regular rhythm, PMI to left. Monitor shows A. fib with occasional PVCs and ventricle rates in the 120s Lungs & Thorax: Bilateral breath sounds equal apex with scattered wheezes, rhonchi and basilar crackles on auscultation [] Abdomen: Bowel sounds decreased, soft, no tenderness, no masses, no pulsatile masses. No gross rectal bleeding. Skin: Warm, dry, no erythema, no rash. Poor turgor Back: no CVA tenderness. [] Mild erythema breakdown on sacral area but no obvious ulcer Extremities: Bilateral ankle edema, left-sided weakness or hemiplegia.- hx this is chronic. Does move right-sided extremities with noxious stimuli. Neurologic: Nonresponsive to noxious pain on Rt, does move right upper extremity and does not cross react and self protects to noxious stimuli on left, has some obvious distal sensory function, per group home reported left side flaccid weakness is chronic from previous CVA. Psychologic: Affect flat, judgement obviously impaired, mood depressed] EKG: EKG: My interpretation initial EKG shows a A. fib rhythm with ventricular response of 121. Does have PVCs. Does have leftward axis and LVH. Abnormal EKG. Was asked to look at EKG after admission- when pt was in ICU. Irregular rhythm. Consistent with A. fib. Did have fascicular block. Did have increased ventricular rate at 142. Consistent with A. fib with rapid ventricular response. 03:02 Vitals reported at 122/68, T= 99.`, Sat. 93%, on 2 lit. NC Did order cardizem qtt , fluid and Lovenox x 1 dose. Holding the request Radiology/Procedures: Radiology/Procedures: [address] [address] IMAGING REPORT Signed PATIENT: HUY TEAGUE NACCOUNT: [id number] : 1950 LOCATION: ER AGE: 70 SEX: M EXAM STATUS: REG ER ORD. PHYSICIAN: PETER SIMS MD REASON: fever, dyspnea, +COVID ex PROCEDURE: PORTABLE CHEST 1V XR CHEST 1V INDICATION: Reason: fever, dyspnea, +COVID ex / Spl. Instructions: / History: . COMPARISON STUDY: 03/28/2018. FINDINGS: Lungs: Low lung volume. Ill-defined bilateral opacities. Pleura: No pleural effusion or pneumothorax. Heart and Mediastinum: Normal cardiomediastinal silhouette and great vessels. IMPRESSION: Ill-defined bilateral opacities, concerning for multifocal infection. Electronically signed by: Elpidio Richardson MD (10/30/2020 9:02 PM) [facility] DICTATED AND SIGNED BY: ELPIDIO RICHARDSON MD DATE: 10/30/202100 CC: PETER SIMS MD; CELI GUILLERMO MD ~[facility] [address] [address] IMAGING REPORT Signed PATIENT: HUY TEAGUE NACCOUNT: [id number] : 1950 LOCATION: ER AGE: 70 SEX: M EXAM STATUS: REG ER ORD. PHYSICIAN: PETER SIMS MD REASON: mental status change PROCEDURE: CT HEAD WO CONTRAST CT HEAD/BRAIN WO Date: 10/30/2020 8:31 PM Clinical Indication: Reason: mental status change / Spl. Instructions: / History: Comparison: 10/12/2020. Technique: 5 mm axial tomographic images were obtained of the head without contrast. These were viewed on brain and bone windows. One or more of the following dose reduction techniques were utilized: Automated exposure control (AEC), Adjustment of mA and/or kV according to patient size, Use of iterative reconstruction technique such as ASiR, CT scan done according to ALARA and image gently/image wisely Findings: Moderate generalized cerebral and cerebellar volume loss. Moderate nonspecific periventricular hypoattenuation, most commonly seen with chronic small vessel ischemic disease. Calcified atherosclerosis of the bilateral cavernous and paraclinoid internal carotid arteries and intracranial vertebral arteries. Small frontal encephalomalacia. No intra- or extra-axial mass or fluid collection. No acute hemorrhage. The ventricles are normal in size, shape, and morphology. The viveros-white matter junction is normal. The subarachnoid cisterns are patent. The visualized paranasal sinuses are normal. The visualized portions of the orbits and globes are normal. The mastoid air cells are clear. The neurology stroke physician topogram shows no lytic lesion or fracture. Impression: No acute intracranial process. Moderate cerebral volume loss. Moderate chronic small vessel ischemic disease. Electronically signed by: Elpidio Richardson MD (10/30/2020 8:55 PM) [facility] DICTATED AND SIGNED BY: ELPIDIO RICHARDSON MD DATE: 10/30/202052 CC: PETER SIMS MD; CELI GUILLERMO MD ~[facility]0 0 ][address] [address] IMAGING REPORT Signed PATIENT: HUY TEAGUE NACCOUNT: [id number] : 1950 LOCATION: ER AGE: 70 SEX: M EXAM STATUS: REG ER ORD. PHYSICIAN: PETER SIMS MD REASON: sitting post attempt central line lt. Subclavian/IJ PROCEDURE: CHEST AP ONLY XR CHEST 1V INDICATION: Reason: sitting post attempt central line lt. Subclavian/IJ / Spl. Instructions: / History: . COMPARISON STUDY: 10/30/2020. FINDINGS: Rotation to the right. Lungs: Normal lung volume. Stable patchy bilateral opacities. The tracheobronchial tree and hilar structures are normal. Pleura: No pleural effusion or pneumothorax. Heart and Mediastinum: Stable cardiomediastinal silhouette and great vessels. IMPRESSION: Stable patchy bilateral opacities. No pneumothorax. Electronically signed by: Elpidio Richardson MD (10/30/2020 10:47 PM) [facility] DICTATED AND SIGNED BY: ELPIDIO RICHARDSON MD DATE: 10/30/202242 CC: PETER SIMS MD; CELI GUILLERMO MD ~MTH0 0 Heart Score: HEART Score for Chest Pain: HEART Score for Chest Pain Response (Comments) Value History Moderately Suspicious 1 ECG Nonspecific Repolarizatio 1 Age > 65 2 Risk Factors 1 or 2 Risk Factors 1 Troponin < Normal Limit 0 Total 5 Risk Factors: Risk Factors: DM, Current or recent (<one month) smoker, HTN, HLP, family history of CAD, obesity. Risk Scores: Score 0 - 3: 2.5% MACE over next 6 weeks - Discharge Home Score 4 - 6: 20.3% MACE over next 6 weeks - Admit for Clinical Observation Score 7 - 10: 72.7% MACE over next 6 weeks - Early Invasive Strategies Course & Med Decision Making: Course & Med Decision Making Pertinent Labs and Imaging studies reviewed. (See chart for details) Pt. mentation gradually improved while in ED. Was able to answer questions and make complaints like " quit sticking me".." let me sleep"..ect Afib Vent. rate decreased 90's. Fever improved with rectal tylenol and aspirin. Min. urine out put via brand with lst. Liter of LR. Procedure Note: Central Line Lt. IJ/Subclavian. Sterile technique used with draped gloves hat mask. Was unable to cannulate IJ or subclavian for central line on Lt. . Plan to order a PICC line placement. Chest x-mable post attemp t showed no obvious pneumothorax. Critical care 90 min. Discussed presentaion, testing and tx. plan with Dr. Pennington. Will admit for further tx. Consider recontact family ref. code status. No answer at the [phone] or [phone] numbers. Will continue coverage for UTI. Suspect atypical pneumonia- Viral. Will continue Rocephin and Azithromax. Did give order for Cardizem for on set of Afib with rapid Vent. after pt. Admitted. Change to Lovenox x 1 does and hold Eliquis. Pt. moved to ICU per Zully singer Sup. 1. Hx COVID exp. 2. Atypical pneumonia 3. Fever 4. Dehydration 5. Anemia Hgb 12.5/ Thrombocytopenia 99 6. Elevated creatinine 1.5 7. History of dementia 8. History of TWS-leuo-gemsz deficits hemiplegia-chronic 9. History of diabetes- Glucose 103 10. Urinary tract infection 11. Mental Status Change 12. Hx. Dementia 13. Hx Afib. 14. Elevated D-dimer 14.,06 15. UTI 16. Hypomagnesium 1.5 17. Malnutrition Alb. 2.7 18. CRP = 108.6 [Morbid [facility] prognosis. ] Edel Disclaimer: Edel Disclaimer: This electronic medical record was generated, in whole or in part, using a voice recognition dictation system. Departure Departure: Referrals: CELI GUILLERMO MD (PCP) Edel Disclaimer This chart was dictated in whole or in part using Voice Recognition software in a busy, high-work load, and often noisy Emergency Department environment. It may contain unintended and wholly unrecognized errors or omissions. Dragon Disclaimer This chart was dictated in whole or in part using Voice Recognition software in a busy, high-work load, and often noisy Emergency Department environment. It may contain unintended and wholly unrecognized errors or omissions. PETER SIMS MD Oct 30, 2020 19:56
[2020-10-30] MEDS ORDERED: AZITHROMYCIN 500 MG in IV NORMAL SALINE 250ML 250 ML IV ONE (20:00)
[2020-10-30] MEDS ORDERED: ASPIRIN RECTAL 300 MG SUPP. PR ONE (20:00)
[2020-10-30] MEDS ORDERED: ACETAMINOPHEN 650 MG SUPP.RECT. PR ONE (20:00)
[2020-10-30] MEDS ORDERED: IV RINGERS SOLUTION,LACTATED 1,000 ML IV SCH (20:00)
[2020-10-30] MEDS ORDERED: IV NORMAL SALINE 50ML 50 ML ONE (20:23)
[2020-10-30] MEDS ORDERED: AZITHROMYCIN 500 MG VIAL. IV ONE (20:23)
[2020-10-30] MEDS ORDERED: IV NORMAL SALINE 250ML 250 ML ONE (20:23)
[2020-10-30] MEDS ORDERED: cefTRIAXone SODIUM 1 GM VIAL ONE (20:24)
--- NOTE | 2020-10-30 20:57 | RAD ---
CT HEAD/BRAIN WO Date: 10/30/2020 8:31 PM Clinical Indication: Reason: mental status change / Spl. Instructions: / History: Comparison: 10/12/2020. Technique: 5 mm axial tomographic images were obtained of the head without contrast. These were view ed on brain and bone windows. One or more of the following dose reduction techniques were utilized: A utomated exposure control (AEC), Adjustment of mA and/or kV according to patient size, Use of iterati ve reconstruction technique such as ASiR, CT scan done according to ALARA and image gently/image salmon ly Findings: Moderate generalized cerebral and cerebellar volume loss. Moderate nonspecific periventricular hypoat tenuation, most commonly seen with chronic small vessel ischemic disease. Calcified atherosclerosis o f the bilateral cavernous and paraclinoid internal carotid arteries and intracranial vertebral arteri es. Small frontal encephalomalacia. No intra- or extra-axial mass or fluid collection. No acute hemorrhage. The ventricles are normal in size, shape, and morphology. The viveros-white matter junction is normal. The subarachnoid cisterns are patent. The visualized paranasal sinuses are normal. The visualized portions of the orbits and globes are no rmal. The mastoid air cells are clear. The general lot attendant topogram shows no lytic lesion or fracture. Impression: No acute intracranial process. Moderate cerebral volume loss. Moderate chronic small vessel ischemic disease. Electronically signed by: Saul Richardson MD (10/30/2020 8:55 PM) [facility]
[2020-10-30 21:01] LABS: BASO # 0.1 x10^3/uL (0.0-0.2); BASO % 1 % (0-3); CALCIUM 8.4 mg/dL (8.5-10.1); CREATININE 1.7 mg/dL (0.7-1.3); EOS # 0.1 x10^3/uL (0.0-0.7); EOS % 1 % (0-3); GFR 48.3; HEMATOCRIT 37.4 % (39.0-53.0); HEMOGLOBIN 12.5 g/dL (13.0-17.5); LYMPH # 1.1 x10^3/uL (1.0-4.8); LYMPH % 15 % (24-48); MEAN CORPUSCULAR HEMOGLOBIN 30 pg (25-35); MEAN CORPUSCULAR HGB CONC 33 g/dL (31-37); MEAN CORPUSCULAR VOLUME 90 fL (79-100); MONO # 1.5 x10^3/uL (0.0-1.1); MONO % 19 % (0-9); NEUT # 5.1 x10^3uL (1.8-7.7); NEUT % 65 % (31-73); PLATELET COUNT 99 x10^3/uL (140-400); POTASSIUM 4.4 mmol/L (3.5-5.1); RED BLOOD COUNT 4.17 x10^6/uL (4.30-5.70); RED CELL DISTRIBUTION WIDTH 15.2 % (11.5-14.5); WHITE BLOOD COUNT 7.8 x10^3/uL (4.0-11.0)
--- NOTE | 2020-10-30 21:05 | RAD ---
XR CHEST 1V INDICATION: Reason: fever, dyspnea, +COVID ex / Spl. Instructions: / History: . COMPARISON STUDY: 03/28/2018. FINDINGS: Lungs: Low lung volume. Ill-defined bilateral opacities. Pleura: No pleural effusion or pneumothorax. Heart and Mediastinum: Normal cardiomediastinal silhouette and great vessels. IMPRESSION: Ill-defined bilateral opacities, concerning for multifocal infection. Electronically signed by: Saul Richardson MD (10/30/2020 9:02 PM) [facility]
[2020-10-30 21:14] LABS: ALBUMIN 2.7 g/dL (3.4-5.0); C REACTIVE PROTEIN 108.6 mg/L (0-3.3); DIRECT BILIRUBIN 0.2 mg/dL (0.0-0.2); MAGNESIUM 1.5 mg/dL (1.8-2.4); TOTAL BILIRUBIN 0.7 mg/dL (0.2-1.0); TOTAL PROTEIN 6.9 g/dL (6.4-8.2)
[2020-10-30 21:19] LABS: INFLUENZA A PATIENT NEGATIVE (NEGATIVE); INFLUENZA B PATIENT NEGATIVE (NEGATIVE)
[2020-10-30 21:24] LABS: BGAS PH 7.45 (7.35-7.46)
[2020-10-30 22:42] LABS: BARBITURATES NEG (NEG); BENZODIAZEPINES NEG (NEG); BILIRUBIN,URINE NEG (NEG); CANNABINOIDS NEG (NEG); CLARITY,URINE HAZY; COCAINE NEG (NEG); COLOR,URINE YELLOW; GLUCOSE,URINE NEG (NEG); METHADONE NEG (NEG); OPIATES NEG (NEG); PHENCYCLIDINE NEG (NEG)
[2020-10-30 22:43] LABS: BACTERIA,URINE 0 /HPF (0-FEW); NITRITE,URINE POS (NEG); SQUAMOUS EPITHELIAL CELL,UR OCC /LPF
[2020-10-30 22:45] LABS: AMPHETAMINE/METHAMPHETAMINE NEG (NEG)
--- NOTE | 2020-10-30 22:49 | RAD ---
XR CHEST 1V INDICATION: Reason: sitting post attempt central line lt. Subclavian/IJ / Spl. Instructions: / Histo ry: . COMPARISON STUDY: 10/30/2020. FINDINGS: Rotation to the right. Lungs: Normal lung volume. Stable patchy bilateral opacities. The tracheobronchial tree and hilar str uctures are normal. Pleura: No pleural effusion or pneumothorax. Heart and Mediastinum: Stable cardiomediastinal silhouette and great vessels. IMPRESSION: Stable patchy bilateral opacities. No pneumothorax. Electronically signed by: Saul Richardson MD (10/30/2020 10:47 PM) [facility]
[2020-10-30] MEDS ORDERED: IV RINGERS SOLUTION,LACTATED 1,000 ML IV ONE (23:00)
[2020-10-31] VITALS (26 sets, daily range): BP systolic 105–150; BP diastolic 49–97
[2020-10-31] MEDS ORDERED: ONDANSETRON PF 4 MG/2 ML VIAL. IVP PRN (00:45)
[2020-10-31] MEDS ORDERED: ACETAMINOPHEN 325 MG TABLET PO PRN (00:45)
[2020-10-31] MEDS ORDERED: ANTI-COAG MONITOR BY PHARMACY. MC PRN (01:30)
[2020-10-31] MEDS: IV RINGERS SOLUTION,LACTATED 1,000 ML IV SCH ×4 (01:53→19:45)
[2020-10-31] MEDS ORDERED: APIXABAN 2.5 MG TABLET PO SCH (02:00)
--- NOTE | 2020-10-31 03:12 | EKG ---
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
[2020-10-31] MEDS ORDERED: IV NORMAL SALINE 100ML 100 ML ONE (03:40)
[2020-10-31] MEDS ORDERED: dilTIAZem 25 MG/5 ML VIAL IVP ONE (04:00)
[2020-10-31] MEDS ORDERED: IV RINGERS SOLUTION,LACTATED 1,000 ML IV ONE (04:00)
[2020-10-31] MEDS ORDERED: dilTIAZem VIAL 125 MG in IV NORMAL SALINE 100ML 100 ML IV ONE (04:00)
[2020-10-31] MEDS ORDERED: ENOXAPARIN ** NOTE DOSE ** SYRINGE SQ ONE (04:00)
[2020-10-31] MEDS ORDERED: HYDR-2868 PO (04:48)
[2020-10-31] MEDS ORDERED: INSU100V31 SQ ×2 (04:48)
[2020-10-31] MEDS ORDERED: MELA10TA PO (04:48)
[2020-10-31] MEDS ORDERED: GALA4TAB PO (04:48)
[2020-10-31] MEDS ORDERED: FURO20TA3 PO (04:48)
[2020-10-31] MEDS ORDERED: SITA50TA PO (04:48)
[2020-10-31] MEDS ORDERED: BUSP5TAB PO (04:48)
[2020-10-31] MEDS ORDERED: INSU100V8 SQ (04:48)
[2020-10-31] MEDS ORDERED: LISI10TA16 PO (04:48)
[2020-10-31] MEDS ORDERED: GLUC1KIT IM (04:48)
[2020-10-31] MEDS ORDERED: FERR325T14 PO (04:48)
[2020-10-31] MEDS ORDERED: GUAI600T47 PO (04:48)
[2020-10-31] MEDS ORDERED: AMLO-187 PO (04:48)
[2020-10-31] MEDS ORDERED: PRAZ5CAP2 PO (04:52)
[2020-10-31] MEDS ORDERED: CLOP75TA57 PO (04:52)
[2020-10-31] MEDS ORDERED: ALBU2.5V8 INH (04:52)
--- NOTE | 2020-10-31 05:10 | EKG ---
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
[2020-10-31] MEDS ORDERED: IPRATRPIUM/ALBUTEROL 0.5/2.5MG 3 ML NEBU. NEB SCH (08:00)
[2020-10-31] MEDS: ASPIRIN 325 MG TABLET PO SCH (09:00)
[2020-10-31] MEDS: LACTOBACILLUS RHAMNOSUS GG 1 CAPSULE. PO SCH ×2 (09:00→21:00)
[2020-10-31] MEDS: IPRATROPIUM/ALBUTEROL 20/100mcg/INH INHALER. INH SCH ×3 (12:00→20:00)
--- NOTE | 2020-10-31 12:49 | HP ---
ADMIT DATE: 10/30/2020 ATTENDING PHYSICIAN: Dr. Rodriguez. CHIEF COMPLAINT: Altered mentation. HISTORY OF PRESENT ILLNESS: The patient is a 70-year-old gentleman with longstanding resident of a local long term at [place]. He has underlying psychiatric issues including depression and schizoaffective disorder. He has altered mentation. He has significant cognitive dysfunction. He moans and groans, does not really respond, has not eaten much. He was sent here for further evaluation. He has underlying profound dementia. He is a full code per his brother who is the power of transactional attorney. There has been exposure to COVID in the long term. His COVID swab is pending at this time. He has a low-grade fever of 100 degrees Fahrenheit. PAST MEDICAL HISTORY: Gleaned from the old chart. He cannot provide any history. He has a longstanding history of depression, anxiety, dementia, Alzheimer's, behavioral issues, old stroke with cognitive deficit, hyperlipidemia, hypertension, frequent UTIs and generalized constipation. PAST SURGICAL HISTORY: Tonsillectomy. ALLERGIES: He has no recorded drug allergies. SOCIAL HISTORY: He is a nonsmoker and nondrinker. MEDICINES: Reviewed. Multiple list included the following: He was taking Plavix 75 mg daily, Lipitor, hydralazine, prazosin, carvedilol, amlodipine, lisinopril, aspirin, methyl salicylate, Tylenol, Depakote sprinkles, Seroquel, BuSpar, Namenda, Lasix, guaifenesin, MiraLax, magnesium hydroxide, bisacodyl, senna p.r.n., ondansetron, Saccharomyces boulardii, Januvia, insulin regular and Lantus, folic acid, B12, cholecalciferol, multivitamin and melatonin. FAMILY HISTORY: Unobtainable. REVIEW OF SYSTEMS: Unobtainable given the patient's current mental state. PHYSICAL EXAMINATION: GENERAL: When I saw him, this is a chronically ill-appearing gentleman who moans, does not respond to any commands at this. He went into atrial fibrillation with rapid ventricular rate last night, he had to be placed on a Cardizem drip. VITAL SIGNS: This morning when I saw him, heart rate is 80 and regular, temperature 100.5 degrees Fahrenheit, BP 145/71, oxygen saturation 96% on 2 liters by nasal cannula. HEENT: Head is without trauma. Pupils are reactive. Orbits a bit sunken. Oropharynx clear and somewhat dry. NECK: Supple. No stridor. LUNGS: Shallow respirations. CARDIOVASCULAR: Showed regular heart tones. No gallops. ABDOMEN: Soft, no guarding or rebound tenderness. EXTREMITIES: Showed trace edema. NEUROLOGIC: The patient is bedridden. He is nonverbal. He does not respond very well at this time. SKIN: Warm and dry. PERTINENT LABORATORY STUDIES: Hemoglobin is 12.5 g/dL. Electrolytes within normal range. Cardiac enzymes slightly elevated at 0.08. Nonfasting blood sugar 103. IMAGING STUDIES: The obligatory CT of the head showed chronic small vessel ischemic disease, cerebral volume loss and atrophy, no acute strokes identified. Chest x-ray showed ill-defined bilateral opacities, no acute decompensation identified. ASSESSMENT: 1. A 70-year-old gentleman, long term resident with altered mentation. 2. Polypharmacy. 3. Rule out COVID-19 exposure. 4. Generalized debilitation. 5. Type 2 diabetes. 6. Essential hypertension. 7. Underlying depression with anxiety with behavioral issues. PLAN: 1. Admit to the inpatient unit. 2. Cardizem drip has been initiated. 3. I have held his sedating drugs and most of his home meds to see if he wakes up. 4. Advance diet when he is able to swallow, then we can switch him back to oral meds. He is a full code at this time. We will try to contact the brother who has called and he may or may not have power of transactional attorney. ALEJANDRA RODRIGUEZ MD DR: BONITA/rose JOB#: [id number] / [id number]
[2020-10-31] MEDS: ACETAMINOPHEN 650 MG SUPP.RECT. PR PRN ×2 (17:03→17:04)
[2020-10-31] MEDS: dilTIAZem VIAL 125 MG in IV NORMAL SALINE 100ML 100 ML IV PRN (22:02)
[2020-10-31] MEDS: AZITHROMYCIN 500 MG in IV NORMAL SALINE 250ML 250 ML IV SCH (22:34)
[2020-11-01] VITALS (23 sets, daily range): BP systolic 116–153; BP diastolic 58–102
[2020-11-01] MEDS: IV RINGERS SOLUTION,LACTATED 1,000 ML IV SCH ×3 (02:00→13:30)
[2020-11-01] MEDS: IPRATROPIUM/ALBUTEROL 20/100mcg/INH INHALER. INH SCH ×4 (08:00→19:50)
[2020-11-01] MEDS: ASPIRIN 325 MG TABLET PO SCH ×2 (09:00→18:07)
[2020-11-01] MEDS: LACTOBACILLUS RHAMNOSUS GG 1 CAPSULE. PO SCH ×2 (09:00→19:50)
[2020-11-01] MEDS: ACETAMINOPHEN 650 MG SUPP.RECT. PR PRN ×2 (10:30→18:07)
[2020-11-01] MEDS: dilTIAZem VIAL 125 MG in IV NORMAL SALINE 100ML 100 ML IV PRN ×2 (10:31→21:51)
--- NOTE | 2020-11-01 11:33 | PN ---
DATE: 11/01/2020 ATTENDING PHYSICIAN: Dr. Rodriguez SUBJECTIVE: He is a little more awake today, still mumbling. We cut back on most of his oral meds, especially the sedating one. His heart rate is better controlled. He has a low-grade temperature. OBJECTIVE FINDINGS: VITAL SIGNS: Blood pressure today is 122/68, pulse is 90, irregularly irregular; temperature 99.0 degrees Fahrenheit, oxygen saturation 94% on 2 liters by nasal cannula. HEENT: Head is without trauma. Pupils are reactive. Sclerae nonicteric. Oropharynx clear. NECK: Supple. No stridor. LUNGS: Shallow respirations. CARDIOVASCULAR: Distant heart tones. No gallops. Irregular rhythm. Peripheral pulses are palpable and full. ABDOMEN: Obese, protuberant. No organomegaly. Bowel sounds were hypoactive. EXTREMITIES: Showed trace edema. NEUROLOGIC FINDINGS: Confused. LABORATORY DATA: Nonfasting blood sugar is 158. Cardiac enzymes slight elevation on admission. Chemistries are within range. ASSESSMENT: 1. A 70-year-old gentleman, residential resident with altered mentation, slightly improved. 2. Polypharmacy. 3. Rule out COVID-19 exposure. 4. Generalized debilitation. 5. Type 2 diabetes. 6. Atrial fibrillation with rapid ventricular rate. 7. Slight elevation of troponins on admission due to stress demand ischemia. PLAN: 1. Continue rate controlled. 2. IV hydration. 3. Sedating meds have been held. 4. Empiric Lovenox. 5. We will get a swallow evaluation. 6. Serial chemistries. ALEJANDRA RODRIGUEZ MD DR: BONITA/rose JOB#: [id number] / [id number]
[2020-11-01] MEDS: ENOXAPARIN 30 MG/0.3 ML SYRINGE. SQ SCH (12:07)
[2020-11-01] MEDS: AZITHROMYCIN 500 MG in IV NORMAL SALINE 250ML 250 ML IV SCH (20:46)
[2020-11-02] VITALS (15 sets, daily range): BP systolic 111–148; BP diastolic 54–90
[2020-11-02] MEDS: IV RINGERS SOLUTION,LACTATED 1,000 ML IV SCH ×2 (02:01→15:17)
[2020-11-02] MEDS: LACTOBACILLUS RHAMNOSUS GG 1 CAPSULE. PO SCH ×2 (08:25→20:33)
[2020-11-02] MEDS: IPRATROPIUM/ALBUTEROL 20/100mcg/INH INHALER. INH SCH ×4 (08:25→20:32)
[2020-11-02] MEDS: ENOXAPARIN 30 MG/0.3 ML SYRINGE. SQ SCH (12:22)
[2020-11-02] MEDS ORDERED: ONDANSETRON PF 4 MG/2 ML VIAL. IVP PRN (12:30)
--- NOTE | 2020-11-02 18:04 | PN ---
DATE: 11/02/2020 SUBJECTIVE: The patient is awake. He had a normal conversation. His sensorium has cleared. He ate lunch. He knows where he is. He denies any pain or shortness of breath. 2 days ago, he had been moaning and sedated. OBJECTIVE FINDINGS: VITAL SIGNS: Blood pressure today is 143/90 mmHg, pulse 82 and regular, temperature afebrile. Oxygen saturation 96% on room air. HEENT: Head is without trauma. Pupils are reactive. Sclerae nonicteric. Oropharynx is clear. NECK: Supple. LUNGS: Clear. There is good air movement. CARDIOVASCULAR: Showed regular heart tones. No gallops. ABDOMEN: Soft. EXTREMITIES: Without edema. NEUROLOGIC: Focally intact. Speech is fluent. He is alert and oriented. SKIN: Warm and dry. LABORATORY DATA: Reviewed. Chemistry panel on admission was unremarkable. Creatinine was 1.7 at that time. Hemoglobin 12.5 g with a white count of 7800. ASSESSMENT: 1. A 70-year-old gentleman, senior living resident with altered mentation due to overmedication, improved. 2. Polypharmacy. 3. COVID-19 exposure. 4. Generalized debilitation. 5. Type 2 diabetes. 6. Atrial fibrillation, now with controlled rate. 7. Slight elevation of troponin due to stress demand ischemia. 8. Chronic kidney disease, stage 3. PLAN: 1. Advance diet. 2. Discontinue IV hydration. 3. We will check room air saturation. 4. Some home meds have been restarted. Most of the sedating meds have been held. 5. Serial chemistries. 6. We are working on discharge planning for tomorrow. ALEJANDRA RODRIGUEZ MD DR: BONITA/rose JOB#: [id number] / [id number]
[2020-11-02] MEDS: AZITHROMYCIN 500 MG in IV NORMAL SALINE 250ML 250 ML IV SCH (21:30)
[2020-11-03 03:42] VITALS: BP 107/84
[2020-11-03] MEDS: IV RINGERS SOLUTION,LACTATED 1,000 ML IV SCH (05:30)
[2020-11-03 08:00] VITALS: BP 134/65
[2020-11-03 09:25] VITALS: BP 134/65
[2020-11-03] MEDS: IPRATROPIUM/ALBUTEROL 20/100mcg/INH INHALER. INH SCH (09:25)
[2020-11-03] MEDS: LACTOBACILLUS RHAMNOSUS GG 1 CAPSULE. PO SCH (09:25)
[2020-11-03] MEDS: ASPIRIN 325 MG TABLET PO SCH (09:25)
--- NOTE | 2020-11-03 13:02 | DS ---
DATE OF DISCHARGE: 11/03/2020 ATTENDING PHYSICIAN: Dr. Rodriguez FINAL DISCHARGE DIAGNOSES: 1. A 70-year-old gentleman, [facility] resident with altered mentation. 2. Polypharmacy. 3. Rule out COVID-19 exposure. 4. Generalized debilitation. 5. Type 2 diabetes. 6. Hypertension. 7. Depression with anxiety and behavioral issues. 8. Paroxysmal atrial fibrillation, controlled. HISTORY AND PHYSICAL: The patient is a 70-year-old gentleman with multiple medical issues as well as psychiatric issues. The patient was up in the [facility] in the past. He was obtunded. He has underlying schizoaffective disorder. He was moaning and groaning fairly obtunded multiple medical meds. He was admitted then for further treatment and evaluation. PHYSICAL EXAMINATION: Please see my dictated note. VITAL SIGNS: Showed a blood pressure 134/65, pulse is 81 and regular, temperature 98.9 degrees Fahrenheit, oxygen saturation 95% on 2 liters by nasal cannula. Lungs: He had good air movement. CARDIAC: His heart rate was regular. ABDOMEN: Soft and he was back to his baseline. PERTINENT LABORATORY AND X-RAY STUDIES: A coronavirus PCR was detected on 10/30/2020. Streptococcus rapid screen negative. Influenza A and B were negative. Hemoglobin maintained at 12.5 grams per deciliter with a white count of 7800. Chemistry panel, nonfasting blood sugars in the mid 100s, creatinine is 1.7 mg/dL, potassium 4.4 mEq, sodium 138. Transaminases unremarkable. Troponin slightly elevated at 0.07 suggestive of a stress demand ischemia. He had no other symptoms. COURSE IN THE HOSPITAL: The patient was admitted. Home meds were simplified. He was started on Cardizem and eventually switched over for oral Cardizem to control heart rate. Blood pressure is well controlled. He had a positive COVID swab. However, he had no other symptoms. He woke up. We advanced his diet and restart some of his home meds. On the fourth hospital day, the patient was alert. He responded appropriately to questions. At this time, he is ready to be discharged back to [facility]. His meds have been simplified. I would recommend that we continue his aspirin 81 mg daily, Coreg 25 mg b.i.d., Plavix 75 mg daily, Depakote 375 t.i.d. Sprinkles, Lasix 20 mg daily, insulin 35 units before each meal 3 times a day, Lantus insulin 50 units at bedtime, lisinopril 20 mg b.i.d., Systane eyedrops, Januvia 50 mg daily, and sodium chloride nasal spray. In addition, because he had trouble with swallowing sustained release Cardizem, I recommended Cardizem a regular dose 60 mg p.o. t.i.d. For now, we held his amlodipine, Lipitor, Dulcolax, BuSpar, vitamin D3, B12, folic acid, glucagon, guaifenesin, hydralazine, magnesium, Namenda, multivitamin, ondansetron, prazosin, Seroquel, probiotics and senna doses, many of these were p.r.n., I do not believe that he needed those. His prognosis is guarded. He was discharged then from our hospital in stable condition with explicit instructions and followup care. Total discharge time spent 41 minutes. ALEJANDRA RODRIGUEZ MD DR: BONITA/rose JOB#: [id number] / [id number] CELI Kelelr MD
== END 2020-11-03 12:20 | DRG 177 ==
LOC: ER 19:38 → 1 SOUTH 20:30 → ICU 10-31 03:20
PROVIDERS: ADMIT Internal Medicine; ATTEND Internal Medicine
DX: U07.1 COVID-19 (principal); E43 Unspecified severe protein-calorie malnutrition; N39.0 Urinary tract infection, site not specified; I69.354 Hemiplegia and hemiparesis following cerebral infarction affecting left non-dominant side; E11.22 Type 2 diabetes mellitus with diabetic chronic kidney disease; E78.00 Pure hypercholesterolemia, unspecified; E78.5 Hyperlipidemia, unspecified; F02.80 Dementia in other diseases classified elsewhere, unspecified severity, without behavioral disturbance, psychotic disturbance, mood disturbance, and anxiety; F41.9 Anxiety disorder, unspecified; G89.29 Other chronic pain; E86.0 Dehydration; E83.42 Hypomagnesemia; D69.6 Thrombocytopenia, unspecified; D64.9 Anemia, unspecified; F25.9 Schizoaffective disorder, unspecified; F31.9 Bipolar disorder, unspecified; F41.8 Other specified anxiety disorders; G30.9 Alzheimer's disease, unspecified; I48.0 Paroxysmal atrial fibrillation; R41.82 Altered mental status, unspecified; T50.995A Adverse effect of other drugs, medicaments and biological substances, initial encounter; I50.9 Heart failure, unspecified; I11.0 Hypertensive heart disease with heart failure; Z79.02 Long term (current) use of antithrombotics/antiplatelets; Z79.4 Long term (current) use of insulin; Z79.82 Long term (current) use of aspirin; Z79.899 Other long term (current) drug therapy; Z87.440 Personal history of urinary (tract) infections; Z68.37 Body mass index [BMI] 37.0-37.9, adult
CPT/HCPCS: 36415; 36556; 36600; 51702; 70450; 71045; 80048; 80076; 80307; 81001; 82550; 82803; 82947; 83690; 83735; 83880; 84443; 84484; 85025; 85379; 85610; 85730; 86140; 87040; 87070; 87086; 87804; 87880; 93005; 96365; 96366; 96368; 99292; J0456; J0696; J1650; J2405; J3490; J7050; J7120; U0003; 99291-25

== ENCOUNTER 2021-02-12 01:00 | Inpatient (IN) | payer MEDICARE, OTHER ==
[~2021-02-12] VITALS: Ht 188 cm; Wt 128.6 kg
[~2021-02-12 01:00] MED LIST changes: +AMLO-187 PO; +BUSP5TAB PO; +CLOP75TA57 PO; +FERR325T14 PO; +FURO20TA3 PO; +GALA4TAB PO; +GLUC1KIT IM; +GUAI600T47 PO; +HYDR-2868 PO; +INSU100V31 SQ; +INSU100V8 SQ; +LISI10TA16 PO; +MELA10TA PO; -MULT1TAB90 PO; +MULT1TAB92 PO; +PRAZ5CAP2 PO; +SITA50TA PO
--- NOTE | 2021-02-12 01:42 | PHYS DOC ---
Past History Past Medical History: Anxiety, CHF, Constipation, CVA, Depression, High Cholesterol, Hypertension, UTI (CHHAYA LINDQUIST MD) Past Surgical History: No Surgical History, Tonsillectomy (CHHAYA LINDQUIST MD) Alcohol Use: None Drug Use: None (CHHAYA LINDQUIST MD) Adult General Chief Complaint Chief Complaint: PSYCH EVALUATION [facility] HPI Patient is a 70-year-old male with a past medical history significant for Alzheimer's, previous stroke, anxiety and depression who presents from [facility] for chief complaint of aggression. According to the facility he has had intermittent bouts of aggression over the last couple of days lashing out at staff. Denies any recent travel, traumas, falls, illnesses. Patient denies headache, changes in vision, chest pain, shortness of breath, abdominal pain, nausea, vomiting, dysuria, hematuria or blood in the stool. Does not have any medical complaints at this time. (CHHAYA LINDQUIST MD) Review of Systems Review of Systems Review of systems otherwise unremarkable except noted in HPI (CHHAYA LINDQUIST MD) Allergies Allergies Allergies Coded Allergies Type Severity Reaction Last Updated Verified No Known Drug Allergies 02/12/21 No (CHHAYA LINDQUIST MD) Physical Exam Physical Exam Constitutional: Well developed, well nourished, no acute distress, non-toxic appearance. [] HENT: Normocephalic, atraumatic, bilateral external ears normal, oropharynx moist, no oral exudates, nose normal. [] Eyes: PERRLA, EOMI, conjunctiva normal, no discharge. [] Neck: Normal range of motion, no tenderness, Cardiovascular:Heart rate regular rhythm, no murmur [] Lungs & Thorax: Bilateral breath sounds clear to auscultation [] Abdomen: soft, no tenderness, no masses, no pulsatile masses. [] Skin: Warm, dry, Extremities: No tenderness, ROM intact, Neurologic: Alert and oriented X 2, normal motor function, normal sensory function, no focal deficits noted. Patient with late stage Alzheimer's dementia [] Psychologic: Pleasant, cooperative, normal speech, apparently at baseline given dementia (CHHAYA LINDQUIST MD) Current Patient Data Vital Signs Vital Signs Date Time Temp Pulse Resp B/P (MAP) Pulse Ox O2 Delivery O2 Flow Rate FiO2 02/12/21 01:14 98.5 81 18 216/128 (157) 97 (CHHAYA LINDQUIST MD) EKG EKG Rate of 81, QRS of 114, QTc of 461, no STEMI [] (CHHAYA LINDQUIST MD) Radiology/Procedures Radiology/Procedures [] (CHHAYA LINDQUIST MD) Heart Score C/O Chest Pain: No Risk Factors: Risk Factors: DM, Current or recent (<one month) smoker, HTN, HLP, family history of CAD, obesity. Risk Scores: Risk Factors: DM, Current or recent (<one month) smoker, HTN, HLP, family history of CAD, obesity. (CHHAYA LINDQUIST MD) Course & Med Decision Making Course & Med Decision Making Patient is a 70-year-old male who [facility] Vital signs notable for hypertension. Physical exam noted above. EKG noted above with no STEMI. Troponin not concerning. Laboratory analysis not concerning. Chest x-ray not concerning. Given hydralazine for hypertension, as patient takes that at home which normalizes blood pressure. Patient otherwise asymptomatic, other than being tired and wanting to go to sleep. Discussed findings with patient. Assisted living was contacted and made aware that laboratory analysis and work- up were reassuring. Assisted living in the process of completing paperwork to admit patient to geriatric psychiatric unit here at [facility]. Patient awaiting transfer to unit. Patient care transferred to day team. (CHHAYA LINDQUIST MD) Course & Med Decision Making The patient was accepted by our inpatient geriatric psych team. He was transferred to the floor with no complications or incidents. (DOMENICA MASSEY DO) Dragon Disclaimer Dragon Disclaimer This electronic medical record was generated, in whole or in part, using a voice recognition dictation system. (CHHAYA LINDQUIST MD) Departure Departure: Impression: Primary Impression: Outbursts of anger Additional Impressions: Dementia Hypertension Disposition: 03 [facility] FACILITY Condition: GOOD Referrals: CELI GUILLERMO MD (PCP) Patient Instructions: Alzheimer's Disease (AD), Diagnosis, Alzheimer's Disease Caregiver Guide, Hypertension, [id number] Additional Instructions: This information is for the patient and he assisted living faculty. Please read all of the information carefully. The patient was pleasant and cooperative here in the emergency department with a normal lab work-up and imaging. His blood pressure was controlled with home hydralazine. Please call his primary care physician as soon as possible to update on ED visit and hypertension management and set up a follow-up as soon as possible to discuss these. You are given contact information for the geriatric psychiatric service here at [facility]. If you wish to discuss placement then please call the number provided and begin the process. Please have the patient come back to the emergency department with any new or concerning medical problems. Problem Qualifiers CHHAYA LINDQUIST MD Feb 12, 2021 01:42 DOMENICA MASSEY DO Feb 12, 2021 14:38
--- NOTE | 2021-02-12 02:18 | RAD ---
Study: XR CHEST 1V Indication: Hypertension. Comparison: 10/30/2020 Findings: Limited exam as the patient's left arm overlies the chest. Apparent rounded opacity at the right upper lung may be artifactual from the patient's hand. No simil ar finding was seen on the comparison. Increased interstitial markings do appear to be present on the right more so than left but relatively similar to the prior. Unchanged configuration of the partiall y assessed cardiomediastinal silhouette. Aortic calcific atherosclerosis. Incompletely evaluated osseous structure. Impression: 1. Limited study due to the patient's left arm overlying the chest. Apparent rounded opacity at the r ight upper chest could be summation artifact from the hand. Follow-up is recommended when the arm can be moved. 2. Increased interstitial markings on the right more so than left appear relatively similar to the 10/30/2020 exam noting the limitations as described. Electronically signed by: MARYAM GALVEZ MD (02/12/2021 2:15 AM) [facility]
[2021-02-12] MEDS ORDERED: hydrALAZINE 20 MG/ML VIAL. IV ONE ×3 (02:30→03:15)
[2021-02-12 02:41] LABS: BASO # 0.1 x10^3/uL (0.0-0.2); BASO % 1 % (0-3); EOS # 0.6 x10^3/uL (0.0-0.7); EOS % 6 % (0-3); HEMATOCRIT 39.8 % (39.0-53.0); HEMOGLOBIN 12.9 g/dL (13.0-17.5); LYMPH # 2.6 x10^3/uL (1.0-4.8); LYMPH % 30 % (24-48); MEAN CORPUSCULAR HEMOGLOBIN 30 pg (25-35); MEAN CORPUSCULAR HGB CONC 33 g/dL (31-37); MEAN CORPUSCULAR VOLUME 91 fL (79-100); MONO # 0.9 x10^3/uL (0.0-1.1); MONO % 10 % (0-9); NEUT # 4.6 x10^3uL (1.8-7.7); NEUT % 53 % (31-73); PLATELET COUNT 81 x10^3/uL (140-400); RED BLOOD COUNT 4.36 x10^6/uL (4.30-5.70); WHITE BLOOD COUNT 8.8 x10^3/uL (4.0-11.0)
[2021-02-12 02:43] LABS: CALCIUM 8.7 mg/dL (8.5-10.1); CREATININE 1.4 mg/dL (0.7-1.3); GFR 60.4; POTASSIUM 4.2 mmol/L (3.5-5.1)
[2021-02-12 02:49] LABS: ALBUMIN 3.2 g/dL (3.4-5.0); ALBUMIN/GLOBULIN RATIO 0.8 (1.0-1.7); TOTAL BILIRUBIN 0.5 mg/dL (0.2-1.0); TOTAL PROTEIN 7.1 g/dL (6.4-8.2)
--- NOTE | 2021-02-12 03:12 | RAD ---
Study: XR CHEST 1V Indication: Hypertension. Comparison: Same day comparison from 0147 hours. Correlation is made to a 10/30/2020 comparison is well . Findings: The patient's left arm has been repositioned allowing for better diagnostic utility. The previously s een right upper lung opacity was artifactual from the patient's hand. Similar extent of increased interstitial markings. There are again streaky densities emanating from t he upper right hilum predominantly above the minor fissure. Similar degree of minor fissure thickenin g and elevation. No layering effusion or pneumothorax. Impression: Predominantly linear infiltrates at the upper right lung and generalized increased interstitial kervin ngs have not significantly changed from 10/30/2020. A component of interstitial edema is possible but t here is no large effusion. Electronically signed by: MARYAM GALVEZ MD (02/12/2021 3:10 AM) [facility]
[2021-02-12] MEDS ORDERED: MIDAZOLAM HCL PF 5 MG/5 ML VIAL. IV ONE (05:00)
--- NOTE | 2021-02-12 06:14 | EKG ---
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
[2021-02-12 07:45] VITALS: BP 182/76
[2021-02-12] MEDS ORDERED: MAG HYDROX/AL HYDROX/SIMETH 30 ML ORAL.SUSP PO PRN (10:00)
[2021-02-12] MEDS ORDERED: MAGNESIUM HYDROXIDE 2,400 MG/30 ML ORAL.SUSP. PO PRN (10:00)
[2021-02-12] MEDS ORDERED: METHYL SALICYLATE/MENTHOL TOPICAL OINTMENT 57GM TUBE. TP PRN (10:00)
[2021-02-12] MEDS ORDERED: DILT60TA PO (12:14)
[2021-02-12] MEDS ORDERED: LOPE2TAB27 PO (12:14)
[2021-02-12] MEDS ORDERED: GALA4SOL PO (12:14)
[2021-02-12] MEDS ORDERED: ALBU2.5V8 INH (12:14)
[2021-02-12] MEDS ORDERED: FERR325T14 PO (12:14)
[2021-02-12] MEDS ORDERED: ALBUTEROL SULFATE 2.5 MG/3 ML NEBU. INH PRN (12:15)
[2021-02-12] MEDS ORDERED: ACETAMINOPHEN 500 MG TABLET PO PRN (12:15)
[2021-02-12] MEDS ORDERED: NON FORMULARY ITEM (Methyl Salicylate/Menthol (Analgesic Balm) 1 APP) TP PRN (12:15)
[2021-02-12] MEDS ORDERED: ONDANSETRON ODT 4 MG TAB.RAPDIS PO PRN (12:15)
[2021-02-12] MEDS ORDERED: hydrALAZINE 25 MG TABLET PO PRN (12:15)
--- NOTE | 2021-02-12 12:15 | CONS ---
DATE OF CONSULTATION: 02/12/2021 ATTENDING PHYSICIANS: Dr. Crystal and Dr. Rodriguez. REASON FOR CONSULTATION: We are asked to see this patient for medical consultation. HISTORY OF PRESENT ILLNESS: The patient is a 70-year-old gentleman from a local [facility], well known to me from previous admission 3 months ago dated 10/31/2020. He was admitted with altered mentation, overmedication and we stabilized him, ruled out coronavirus and he was sent here to the [facility]. He has been at [facility]. There are problems with agitation. He has been very aggressive to the staff, throwing things, threatening peers, confused, becoming very angry and irritable. He is sent here for further treatment and evaluation. He has profound dementia and cannot provide much history. 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 ALLERGIES: He has no recorded drug allergies. CURRENT MEDICATIONS: At the fpc include Tylenol, amlodipine, aspirin, Lipitor, Dulcolax, BuSpar, Coreg twice a day, Plavix 75 mg daily, cholecalciferol, vitamin B12, Depakote, folic acid, Lasix, glucagon, guaifenesin, hydralazine, regular insulin, Lantus, lisinopril, magnesium hydroxide, melatonin, Namenda, methyl salicylate, ondansetron, prazosin, MiraLax, Seroquel, probiotics, senna, Januvia, and sodium chloride nasal spray. SOCIAL HISTORY: He is a nonsmoker, nondrinker. FAMILY HISTORY: Unobtainable. He does have a brother, Raffaele, years ago. 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 REVIEW OF SYSTEMS: Unobtainable due to the patient's confusion. PHYSICAL EXAMINATION: GENERAL: When I saw him, this is a pleasant elderly gentleman who was arousable and alert. He is sleepy. INITIAL VITAL SIGNS: Showed a blood pressure 147/77, pulse is 80 and regular, respirations unlabored. He is afebrile and oxygen saturation was 98% on room air. HEENT: Head is without trauma. Pupils are reactive. Sclerae nonicteric. Oropharynx is clear. NECK: Supple, no bruits or stridor. LUNGS: Shallow respirations, but clear. CARDIOVASCULAR: Showed regular heart tones. No gallops. ABDOMEN: Soft, no guarding. EXTREMITIES: Showed trace edema, the left ankle is slightly larger from degenerative changes in the right ankle. He is nonambulatory at this time. SKIN: Warm and dry. NEUROLOGIC: Pleasantly confused. He is not aware of person, place or time. LABORATORY STUDIES: Reviewed. His hemoglobin on admission was 12.9 g/dL with a white count of 8800. His sodium is 136 mEq, potassium 4.2, creatinine 1.4 mg percent, nonfasting blood sugar 162 mg/dL. Cardiac enzymes were negative for coronary ischemia. ASSESSMENT: 1. This 70-year-old gentleman has multiple strokes in the past. 2. Multi-infarct dementia. 3. Aggressive behavior with agitation. 4. Essential hypertension. 5. Type 2 diabetes. 6. Hyperlipidemia. 7. Degenerative arthritis. RECOMMENDATIONS: 1. The patient is stable from a medical standpoint. 2. I reviewed his meds. We should continue them as scheduled. Thank you so much for asking me to see this patient for medical consultation. We should gladly follow along during his inpatient stay. ALEJANDRA RODRIGUEZ MD DR: BONITA/rose JOB#: [id number] / [id number] DEAN Rey MD
[2021-02-12] MEDS ORDERED: LOPERAMIDE 2 MG CAPSULE PO PRN (13:15)
[2021-02-12] MEDS ORDERED: GLUCAGON,HUMAN RECOMBINANT 1 MG KIT. IM PRN (13:15)
[2021-02-12] MEDS ORDERED: POLYVINYL ALCOHOL/POVIDONE/PF OPHTH SOLUTION DROPERETTE. OU PRN (13:15)
[2021-02-12 14:13] LABS: BILIRUBIN,URINE NEG (NEG); CLARITY,URINE CLEAR; COLOR,URINE YELLOW; GLUCOSE,URINE NEG (NEG); NITRITE,URINE NEG (NEG)
[2021-02-12 14:18] LABS: BACTERIA,URINE 0 /HPF (0-FEW); RBC,URINE OCC /HPF (0-2); SQUAMOUS EPITHELIAL CELL,UR FEW /LPF; WBC,URINE OCC /HPF (0-4)
[2021-02-12] MEDS: dilTIAZem HCL 30 MG TABLET PO SCH ×2 (14:51→20:51)
[2021-02-12] MEDS: DIVALPROEX 125 MG CAP.SPRINK PO SCH ×2 (14:51→17:11)
[2021-02-12 16:17] VITALS: BP 179/99
[2021-02-12] MEDS: NON FORMULARY ITEM (Insulin Aspart (Novolog) 0 UNIT) SQ SCH (17:00)
[2021-02-12] MEDS: LINAGLIPTIN 5 MG TABLET PO SCH (17:10)
[2021-02-12] MEDS: CARVEDILOL 12.5 MG TABLET PO SCH (17:11)
[2021-02-12 20:15] LABS: THYROXINE 8.4 ug/dL (4.5-12.0)
[2021-02-12] MEDS: LISINOPRIL 10 MG TABLET PO SCH (20:49)
[2021-02-12] MEDS: GALANTAMINE 4 MG TABLET PO SCH (20:49)
[2021-02-12] MEDS: PRAZOSIN 5 MG CAPSULE. PO SCH (20:50)
[2021-02-12] MEDS: ATORVASTATIN CALCIUM 20 MG TABLET PO SCH (20:50)
[2021-02-12] MEDS: FERROUS SULFATE 325 MG TABLET. PO SCH (20:50)
[2021-02-12] MEDS: busPIRone 5 MG TABLET. PO SCH (20:51)
--- NOTE | 2021-02-12 22:41 | HP ---
ADMIT DATE: 02/12/2021 PSYCHIATRIC ADMISSION HISTORY AND EVALUATION I met with the patient evening of 02/12 for this evaluation and previously discussed with [place] early this morning around 6:00 a.m. for this admission. IDENTIFYING DATA: The patient is a 70-year-old Afro-Norwegian male who presented to the Emergency Room at [facility] from the [facility] on account of worsening confusion within the context of his diagnosis of major neurocognitive disorder, Alzheimer, vascular with delusion, depression, behavioral disturbance; anxiety disorder, unspecified; impulse control disorder, unspecified. The patient has been residing at the above snf, getting quite agitated, aggressive with staff, cursing, threatening staff and threatening to hit peers. He was confused, angry, extremely irritable. Behaviors were deemed dangerous, unmanageable at the facility resulting in this referral. CHIEF COMPLAINT: "Nice to see you again." The patient in fact did not recognize me, even though I have seen him in the past at the snf and he has been hospitalized here in the past, the last time being in 04/2018. He certainly did not remember that. HISTORY OF PRESENT ILLNESS: The patient has a history of dementia, Alzheimer's, vascular type. He has been residing at the above snf for some time, but recently getting increasingly agitated, aggressive, disruptive, paranoid, delusional and more confused. No clear history of bipolar disorder. He has had some sleep and appetite changes. PAST PSYCHIATRIC HISTORY: Positive for progressive dementia, vascular versus Alzheimer's with delusion, depression, behavioral disturbance. MEDICAL HISTORY: Positive for hypertension, hyperlipidemia, atrial fibrillation with RVR, CHF, status post right CVA, left hemiparesis, muscle weakness. DRUG ALLERGIES: Negative. CODE STATUS: FULL CODE. DIET: Diabetic, ground beef, ground meat. Accu-cheks a.c. and at bedtime. Takes medications whole. Remains in wheelchair and Kamran lift. UA is negative. CURRENT PSYCHOTROPICS: BuSpar 5 mg b.i.d., Depakote 375 mg t.i.d., galantamine hydrobromide 4 mg b.i.d., prazosin 5 mg b.i.d., Seroquel 50 mg daily, Zyprexa p.r.n. 5 mg q. 2 hours psychosis, agitation p.r.n., max 20 mg in 24 hours. FAMILY HISTORY: Noncontributory. SOCIAL HISTORY: No history of alcohol, drug abuse, physical, sexual or elder abuse. He is not known to be a perpetrator. REACTION TO HOSPITALIZATION: The patient accepting of it, but wanting to "go home." ASSETS: Supportive living at the above facility. REVIEW OF SYSTEMS: Ambulation impaired, in wheelchair. No CV, , pulmonary, eye, ENT system symptoms on review. Reliability poor. MENTAL STATUS EXAMINATION: Oriented to himself. Insight, judgment, recent and remote memory, attention, concentration, fund of knowledge poor, consistent with his diagnosis. IMPRESSION: Major neurocognitive disorder, vascular Alzheimer with delusion, depression, behavioral disturbance; anxiety disorder, unspecified; impulse control disorder, unspecified. Rest diagnoses as above. PLAN: Admit to Geropsychiatry Unit at [facility]. I will see the patient daily individually. I will follow him from a psychiatric standpoint. Medical followup with Dr. Pennington/Dr Zayas. Continue the patient on his current psychotropics. Check a valproic acid level. Observe baseline, adjust psychotropics as clinically indicated. ESTIMATED LENGTH OF STAY: 10-12 days. DISPOSITION: Plan is back to snf when stable. DEAN GARDNER MD DR: DAMIEN/rose JOB#: [id number] / [id number]
[2021-02-12] MEDS: INSULIN GLARGINE SYRINGE. SQ SCH (22:45)
[2021-02-12] MEDS: SODIUM CHLORIDE 0.65% NASAL SPRAY 45ML BOTTLE. NS SCH (22:46)
[2021-02-12 23:16] LABS: HEMOGLOBIN A1C 7.2 % (4.8-5.6)
--- NOTE | 2021-02-12 23:22 | PDOC ---
Exam Note: [place] Note: Please also refer to the separate dictated note~for this date of service dictated separately.~Patient seen individually. Discussed the patient with Nursing staff reviewed the chart.~Reviewed interim history and current functioning. Reviewed vital signs,~Labs/ Radiology~and current medications noted below. Continue current treatment with the changes noted in the dictated addendum note Assessment: Vital Signs/I&O: Vital Signs Date Time Temp Pulse Resp B/P (MAP) Pulse Ox O2 Delivery O2 Flow Rate FiO2 02/12/21 20:51 77 179/99 02/12/21 16:17 97.7 18 98 02/12/21 07:06 Room Air Labs: Laboratory Tests Test 02/12/21 02:20 02/12/21 10:30 02/12/21 12:04 02/12/21 13:47 White Blood Count 8.8 x10^3/uL (4.0-11.0) Red Blood Count 4.36 x10^6/uL (4.30-5.70) Hemoglobin 12.9 g/dL (13.0-17.5) L Hematocrit 39.8 % (39.0-53.0) Mean Corpuscular Volume 91 fL (79-100) Mean Corpuscular Hemoglobin 30 pg (25-35) Mean Corpuscular Hemoglobin Concent 33 g/dL (31-37) Red Cell Distribution Width 15.0 % (11.5-14.5) H Platelet Count 81 x10^3/uL (140-400) L Neutrophils (%) (Auto) 53 % (31-73) Lymphocytes (%) (Auto) 30 % (24-48) Monocytes (%) (Auto) 10 % (0-9) H Eosinophils (%) (Auto) 6 % (0-3) H Basophils (%) (Auto) 1 % (0-3) Neutrophils # (Auto) 4.6 x10^3uL (1.8-7.7) Lymphocytes # (Auto) 2.6 x10^3/uL (1.0-4.8) Monocytes # (Auto) 0.9 x10^3/uL (0.0-1.1) Eosinophils # (Auto) 0.6 x10^3/uL (0.0-0.7) Basophils # (Auto) 0.1 x10^3/uL (0.0-0.2) Sodium Level 136 mmol/L (136-145) Potassium Level 4.2 mmol/L (3.5-5.1) Chloride Level 103 mmol/L (98-107) Carbon Dioxide Level 25 mmol/L (21-32) Anion Gap 8 (6-14) Blood Urea Nitrogen 18 mg/dL (8-26) Creatinine 1.4 mg/dL (0.7-1.3) H Estimated GFR (Cockcroft-Gault) 60.4 BUN/Creatinine Ratio 13 (6-20) Glucose Level 162 mg/dL (70-99) H Calcium Level 8.7 mg/dL (8.5-10.1) Total Bilirubin 0.5 mg/dL (0.2-1.0) Aspartate Amino Transferase (AST) 27 U/L (15-37) Alanine Aminotransferase (ALT) 32 U/L (16-63) Alkaline Phosphatase 63 U/L (46-116) Troponin I Quantitative 0.024 ng/mL (0-0.055) Total Protein 7.1 g/dL (6.4-8.2) Albumin 3.2 g/dL (3.4-5.0) L Albumin/Globulin Ratio 0.8 (1.0-1.7) L D-Dimer (Eunice) 1.12 mg/L (0.00-0.50) H Hemoglobin A1c 7.2 % (4.8-5.6) H Magnesium Level 1.7 mg/dL (1.8-2.4) L Thyroxine (T4) 8.4 ug/dL (4.5-12.0) Total Triiodothyronine (TT3) 126 ng/dL (71-180) Glucose (Fingerstick) 170 mg/dL (70-99) H Urine Collection Type Unknown Urine Color Yellow Urine Clarity Clear Urine pH 7.0 Urine Specific [place] 1.020 Urine Protein 100 mg/dl (NEG-TRACE) Urine Glucose (UA) Neg mg/dL (NEG) Urine Ketones (Stick) Neg mg/dL (NEG) Urine Blood Neg (NEG) Urine Nitrite Neg (NEG) Urine Bilirubin Neg (NEG) Urine Urobilinogen Dipstick 2.0 mg/dL (0.2 mg/dL) Urine Leukocyte Esterase Neg (NEG) Urine RBC Occ /HPF (0-2) Urine WBC Occ /HPF (0-4) Urine Squamous Epithelial Cells Few /LPF Urine Bacteria 0 /HPF (0-FEW) Test 02/12/21 19:53 Glucose (Fingerstick) 209 mg/dL (70-99) H Current Medications: Meds: Current Medications Medications (Trade) Dose Ordered Sig/Romeo Route PRN Reason Start Time Stop Time Status Last Admin Dose Admin Hydralazine HCl (Apresoline) 10 mg 1X ONCE IV 02/12/21 02:30 02/12/21 02:31 DC 02/12/21 02:35 Hydralazine HCl (Apresoline) 10 mg 1X ONCE IV 02/12/21 03:15 02/12/21 03:16 DC 02/12/21 03:21 Midazolam HCl (Versed) 2.5 mg 1X ONCE IV 02/12/21 05:00 02/12/21 05:01 DC 02/12/21 04:53 Atorvastatin Calcium (Lipitor) 20 mg QHS PO 02/12/21 21:00 02/12/21 20:50 Buspirone HCl (Buspar) 5 mg BID PO 02/12/21 21:00 02/12/21 20:51 Divalproex Sodium (Depakote Sprinkles) 375 mg TID@0900,1300,1700 PO 02/12/21 13:00 02/12/21 17:11 Ferrous Sulfate (Feosol) 325 mg BID PO 02/12/21 21:00 02/12/21 20:50 Insulin Glargine (Lantus Syringe) 50 unit HS SQ 02/12/21 21:00 02/12/21 22:45 Lisinopril (Prinivil) 20 mg BID PO 02/12/21 21:00 02/12/21 20:49 Prazosin HCl (Minipress) 5 mg BID PO 02/12/21 21:00 02/12/21 20:50 Sodium Chloride (Saline Mist Nasal) 1 abby BID NS 02/12/21 21:00 02/12/21 22:46 Carvedilol (Coreg) 25 mg BIDWMEALS PO 02/12/21 17:00 02/12/21 17:11 Diltiazem HCl (Cardizem) 60 mg TID PO 02/12/21 14:00 02/12/21 20:51 Galantamine Hydrobromide (Razadyne) 4 mg BID PO 02/12/21 21:00 02/12/21 20:49 Linagliptin (Tradjenta) 5 mg DAILY16 PO 02/12/21 16:00 02/12/21 17:10 I have reviewed the current psychotropics carefully including drug interactions. Risk benefit ratio favors no change other than as noted in my dictated progress note. Diagnosis: Problems: (1) Major neurocognitive disorder (2) Dementia in Alzheimer's disease with delusions (3) Dementia in Alzheimer's disease with depression (4) Dementia in Alzheimer's disease with early onset with behavioral disturbance (5) Anxiety disorder (6) Dementia, vascular, with delusions (7) Dementia, vascular, with depression (8) Impulse control disorder DEAN GARDNER MD Feb 12, 2021 23:22
[2021-02-13 06:12] VITALS: BP 146/73
[2021-02-13] MEDS: NON FORMULARY ITEM (Insulin Aspart (Novolog) 0 UNIT) SQ SCH ×2 (08:00→12:00)
[2021-02-13] MEDS: dilTIAZem HCL 30 MG TABLET PO SCH ×3 (08:10→22:05)
[2021-02-13] MEDS: ASPIRIN ENTERIC COATED 81 MG TABLET.DR. PO SCH (08:10)
[2021-02-13] MEDS: QUEtiapine 50 MG TABLET. PO SCH (08:10)
[2021-02-13] MEDS: CARVEDILOL 12.5 MG TABLET PO SCH ×2 (08:11→17:34)
[2021-02-13] MEDS: MULTIVITAMIN with MINERAL TABLET. PO SCH (08:12)
[2021-02-13] MEDS: CLOPIDOGREL BISULFATE 75 MG TABLET PO SCH (08:12)
[2021-02-13] MEDS: DIVALPROEX 125 MG CAP.SPRINK PO SCH ×3 (08:12→17:35)
[2021-02-13] MEDS: GALANTAMINE 4 MG TABLET PO SCH ×2 (08:17→21:59)
[2021-02-13] MEDS: busPIRone 5 MG TABLET. PO SCH ×2 (08:17→21:58)
[2021-02-13] MEDS: PRAZOSIN 5 MG CAPSULE. PO SCH ×2 (08:18→22:05)
[2021-02-13] MEDS: LISINOPRIL 10 MG TABLET PO SCH ×2 (08:18→22:04)
[2021-02-13] MEDS: FERROUS SULFATE 325 MG TABLET. PO SCH ×2 (08:18→21:59)
[2021-02-13] MEDS: FUROSEMIDE 20 MG TABLET PO SCH (08:19)
[2021-02-13] MEDS: SODIUM CHLORIDE 0.65% NASAL SPRAY 45ML BOTTLE. NS SCH ×2 (08:19→22:00)
[2021-02-13 09:29] LABS: VAL ACID 38 mcg/mL (50-100)
[2021-02-13] MEDS: ACETAMINOPHEN 325 MG TABLET PO PRN (11:19)
[2021-02-13 14:02] LABS: THYROID STIM HORMONE (TSH) 1.762 uIU/mL (0.358-3.740)
[2021-02-13 15:47] VITALS: BP 146/75
[2021-02-13] MEDS: LINAGLIPTIN 5 MG TABLET PO SCH (17:34)
[2021-02-13] MEDS: ATORVASTATIN CALCIUM 20 MG TABLET PO SCH (21:59)
[2021-02-13] MEDS: INSULIN GLARGINE SYRINGE. SQ SCH (22:03)
--- NOTE | 2021-02-13 22:33 | PDOC ---
Exam Note: [place] Note: Please also refer to the separate dictated note~for this date of service dictated separately.~Patient seen individually. Discussed the patient with Nursing staff reviewed the chart.~Reviewed interim history and current functioning. Reviewed vital signs,~Labs/ Radiology~and current medications noted below. Continue current treatment with the changes noted in the dictated addendum note Assessment: Vital Signs/I&O: Vital Signs Date Time Temp Pulse Resp B/P (MAP) Pulse Ox O2 Delivery O2 Flow Rate FiO2 02/13/21 22:05 71 145/79 02/13/21 15:47 96.9 18 98 02/12/21 07:06 Room Air I & O 02/12/21 02/12/21 02/13/21 15:00 23:00 07:00 Intake Total 120 ml 360 ml Balance 120 ml 360 ml Labs: Laboratory Tests Test 02/13/21 08:07 02/13/21 09:00 02/13/21 12:18 02/13/21 16:39 Glucose (Fingerstick) 151 mg/dL (70-99) H 174 mg/dL (70-99) H 254 mg/dL (70-99) H Valproic Acid Level 38 mcg/mL (50-100) L Valproic Acid Last Dose Date 02/12/21 Valproic Acid Last Dose Time 1700 Test 02/13/21 19:23 Glucose (Fingerstick) 186 mg/dL (70-99) H Current Medications: Meds: Laboratory Tests Test 02/13/21 08:07 02/13/21 09:00 02/13/21 12:18 02/13/21 16:39 Glucose (Fingerstick) 151 mg/dL 174 mg/dL 254 mg/dL Valproic Acid (Depakene) Level 38 mcg/mL Valproic Acid Last Dose Date 02/12/21 Valproic Acid Last Dose Time 1700 Test 02/13/21 19:23 Glucose (Fingerstick) 186 mg/dL Current Medications Medications (Trade) Dose Ordered Sig/Romeo Route PRN Reason Start Time Stop Time Status Last Admin Dose Admin Hydralazine HCl (Apresoline) 20 mg 1X ONCE IV 02/12/21 02:30 02/12/21 02:24 DC Hydralazine HCl (Apresoline) 10 mg 1X ONCE IV 02/12/21 02:30 02/12/21 02:31 DC 02/12/21 02:35 Hydralazine HCl (Apresoline) 10 mg 1X ONCE IV 02/12/21 03:15 02/12/21 03:16 DC 02/12/21 03:21 Midazolam HCl (Versed) 2.5 mg 1X ONCE IV 02/12/21 05:00 02/12/21 05:01 DC 02/12/21 04:53 Acetaminophen (Tylenol) 650 mg PRN Q6HRS PRN PO MILD PAIN / TEMP > 100.3'F 02/12/21 10:00 02/13/21 11:19 Multi-Ingredient Ointment (Analgesic [place]) 1 abby PRN QID PRN TP MUSCLE PAIN 02/12/21 10:00 Al Hydroxide/Mg Hydroxide (Mylanta Plus Xs) 15 ml PRN AFTMEALHC PRN PO DYSPEPSIA 02/12/21 10:00 Magnesium Hydroxide (Milk Of Magnesia) 2,400 mg PRN QHS PRN PO CONSTIPATION 02/12/21 10:00 Acetaminophen (Tylenol) 650 mg PRN Q6HRS PRN PO MILD PAIN / TEMP > 100.3'F 02/12/21 12:15 Cancel Albuterol Sulfate (Ventolin) 2.5 mg PRN Q6HRS PRN INH SHORTNESS OF BREATH 02/12/21 12:15 Aspirin (Aspirin Enteric Coated) 81 mg DAILY PO 02/13/21 09:00 02/13/21 08:10 Atorvastatin Calcium (Lipitor) 20 mg QHS PO 02/12/21 21:00 02/13/21 21:59 Buspirone HCl (Buspar) 5 mg BID PO 02/12/21 21:00 02/13/21 21:58 Vitamin D (Vitamin D3) 50,000 unit QFR PO 02/15/21 16:00 Clopidogrel Bisulfate (Plavix) 75 mg DAILY PO 02/13/21 09:00 02/13/21 08:12 Divalproex Sodium (Depakote Sprinkles) 375 mg TID@0900,1300,1700 PO 02/12/21 13:00 02/13/21 15:22 DC 02/13/21 12:47 Ferrous Sulfate (Feosol) 325 mg BID PO 02/12/21 21:00 02/13/21 21:59 Furosemide (Lasix) 20 mg DAILY PO 02/13/21 09:00 02/13/21 08:19 Hydralazine HCl (Apresoline) 12.5 mg PRN Q6HRS PRN PO htn 02/12/21 12:15 Insulin Glargine (Lantus Syringe) 50 unit HS SQ 02/12/21 21:00 02/13/21 22:03 Lisinopril (Prinivil) 20 mg BID PO 02/12/21 21:00 02/13/21 22:04 Multivitamins/ Calcium (Thera-M Plus) 1 tab DAILY PO 02/13/21 09:00 02/13/21 08:12 Ondansetron HCl (Zofran Odt) 4 mg PRN Q6HRS PRN PO NAUSEA/VOMITING 02/12/21 12:15 Prazosin HCl (Minipress) 5 mg BID PO 02/12/21 21:00 02/13/21 22:05 Quetiapine Fumarate (SEROquel) 50 mg DAILY PO 02/13/21 09:00 02/13/21 08:10 Sodium Chloride (Saline Mist Nasal) 1 abby BID NS 02/12/21 21:00 02/13/21 22:00 Carvedilol (Coreg) 25 mg BIDWMEALS PO 02/12/21 17:00 02/13/21 17:34 Diltiazem HCl (Cardizem) 60 mg TID PO 02/12/21 14:00 02/13/21 22:05 Galantamine Hydrobromide (Razadyne) 4 mg BID PO 02/12/21 21:00 02/13/21 21:59 Glucagon (Glucagen Kit) 1 mg PRN Q15MIN PRN IM LOW BLOOD SUGAR 02/12/21 13:15 Non-Formulary Medication (Insulin Aspart (Novolog)) 70-150 Give 0 un... TIDWMEALS SQ 02/12/21 17:00 02/13/21 17:11 DC Loperamide HCl (Imodium) 2 mg PRN Q2HRS PRN PO DIARRHEA 02/12/21 13:15 Non-Formulary Medication (Methyl Salicylate/ Menthol (Analgesic [place])) 1 abby PRN QID PRN TP MUSCLE PAIN 02/12/21 12:15 02/12/21 13:14 DC Artificial Tears (Refresh Classic) 2 drop PRN QID PRN OU DRY EYE 02/12/21 13:15 Linagliptin (Tradjenta) 5 mg DAILY16 PO 02/12/21 16:00 02/13/21 17:34 Olanzapine (ZyPREXA ZYDIS) 5 mg PRN Q2HR PRN PO PSYCHOSIS 02/12/21 12:30 02/13/21 00:14 Divalproex Sodium (Depakote Sprinkles) 375 mg 1300 PO 02/14/21 13:00 Divalproex Sodium (Depakote Sprinkles) 500 mg 0900,1700 PO 02/13/21 17:00 02/13/21 17:35 Insulin Human Lispro (HumaLOG) 0-9 UNITS TIDWMEALS SQ 02/14/21 08:00 Current Medications Medications (Trade) Dose Ordered Sig/Romeo Route PRN Reason Start Time Stop Time Status Last Admin Dose Admin Aspirin (Aspirin Enteric Coated) 81 mg DAILY PO 02/13/21 09:00 02/13/21 08:10 Clopidogrel Bisulfate (Plavix) 75 mg DAILY PO 02/13/21 09:00 02/13/21 08:12 Furosemide (Lasix) 20 mg DAILY PO 02/13/21 09:00 02/13/21 08:19 Multivitamins/ Calcium (Thera-M Plus) 1 tab DAILY PO 02/13/21 09:00 02/13/21 08:12 Quetiapine Fumarate (SEROquel) 50 mg DAILY PO 02/13/21 09:00 02/13/21 08:10 Divalproex Sodium (Depakote Sprinkles) 500 mg 0900,1700 PO 02/13/21 17:00 02/13/21 17:35 I have reviewed the current psychotropics carefully including drug interactions. Risk benefit ratio favors no change other than as noted in my dictated progress note. Diagnosis: Problems: (1) Major neurocognitive disorder (2) Dementia in Alzheimer's disease with delusions (3) Dementia in Alzheimer's disease with depression (4) Dementia in Alzheimer's disease with early onset with behavioral disturbance (5) Anxiety disorder (6) Dementia, vascular, with delusions (7) Dementia, vascular, with depression (8) Impulse control disorder DEAN GARDNER MD Feb 13, 2021 22:33
[2021-02-14] MEDS: busPIRone 5 MG TABLET. PO SCH ×2 (05:29→21:12)
[2021-02-14] MEDS: ASPIRIN ENTERIC COATED 81 MG TABLET.DR. PO SCH (05:29)
[2021-02-14] MEDS: dilTIAZem HCL 30 MG TABLET PO SCH ×3 (05:29→21:13)
[2021-02-14] MEDS: FUROSEMIDE 20 MG TABLET PO SCH (05:30)
[2021-02-14] MEDS: PRAZOSIN 5 MG CAPSULE. PO SCH ×2 (05:30→21:14)
[2021-02-14] MEDS: CARVEDILOL 12.5 MG TABLET PO SCH ×2 (05:30→17:21)
[2021-02-14] MEDS: CLOPIDOGREL BISULFATE 75 MG TABLET PO SCH (05:30)
[2021-02-14] MEDS: DIVALPROEX 125 MG CAP.SPRINK PO SCH ×3 (05:31→17:21)
[2021-02-14] MEDS: MULTIVITAMIN with MINERAL TABLET. PO SCH (05:31)
[2021-02-14] MEDS: GALANTAMINE 4 MG TABLET PO SCH ×2 (05:31→21:13)
[2021-02-14] MEDS: QUEtiapine 50 MG TABLET. PO SCH (05:31)
[2021-02-14] MEDS: FERROUS SULFATE 325 MG TABLET. PO SCH ×2 (05:31→21:13)
[2021-02-14] MEDS: LISINOPRIL 10 MG TABLET PO SCH ×2 (05:32→21:14)
[2021-02-14 06:04] VITALS: BP 136/74
[2021-02-14] MEDS: INSULIN LISPRO 300 UNITS/3 ML VIAL. SQ SCH ×3 (08:00→17:00)
[2021-02-14] MEDS: SODIUM CHLORIDE 0.65% NASAL SPRAY 45ML BOTTLE. NS SCH ×2 (09:00→21:16)
[2021-02-14 16:29] VITALS: BP 168/84
[2021-02-14] MEDS: LINAGLIPTIN 5 MG TABLET PO SCH (17:22)
[2021-02-14] MEDS: INSULIN GLARGINE SYRINGE. SQ SCH (21:00)
[2021-02-14] MEDS: ATORVASTATIN CALCIUM 20 MG TABLET PO SCH (21:12)
--- NOTE | 2021-02-14 22:04 | PDOC ---
Exam Note: [place] Note: Please also refer to the separate dictated note~for this date of service dictated separately.~Patient seen individually. Discussed the patient with Nursing staff reviewed the chart.~Reviewed interim history and current functioning. Reviewed vital signs,~Labs/ Radiology~and current medications noted below. Continue current treatment with the changes noted in the dictated addendum note Assessment: Vital Signs/I&O: Vital Signs Date Time Temp Pulse Resp B/P (MAP) Pulse Ox O2 Delivery O2 Flow Rate FiO2 02/14/21 21:14 70 168/84 02/14/21 16:29 97.1 18 98 02/12/21 07:06 Room Air I & O 02/13/21 02/13/21 02/14/21 15:00 23:00 07:00 Intake Total 720 ml 120 ml Balance 720 ml 120 ml Labs: Laboratory Tests Test 02/14/21 07:59 02/14/21 12:09 02/14/21 17:13 02/14/21 19:06 Glucose (Fingerstick) 150 mg/dL (70-99) H 249 mg/dL (70-99) H 122 mg/dL (70-99) H 191 mg/dL (70-99) H Current Medications: Meds: Laboratory Tests Test 02/14/21 07:59 02/14/21 12:09 02/14/21 17:13 02/14/21 19:06 Glucose (Fingerstick) 150 mg/dL 249 mg/dL 122 mg/dL 191 mg/dL Current Medications Medications (Trade) Dose Ordered Sig/Romeo Route PRN Reason Start Time Stop Time Status Last Admin Dose Admin Hydralazine HCl (Apresoline) 20 mg 1X ONCE IV 02/12/21 02:30 02/12/21 02:24 DC Hydralazine HCl (Apresoline) 10 mg 1X ONCE IV 02/12/21 02:30 02/12/21 02:31 DC 02/12/21 02:35 Hydralazine HCl (Apresoline) 10 mg 1X ONCE IV 02/12/21 03:15 02/12/21 03:16 DC 02/12/21 03:21 Midazolam HCl (Versed) 2.5 mg 1X ONCE IV 02/12/21 05:00 02/12/21 05:01 DC 02/12/21 04:53 Acetaminophen (Tylenol) 650 mg PRN Q6HRS PRN PO MILD PAIN / TEMP > 100.3'F 02/12/21 10:00 02/13/21 11:19 Multi-Ingredient Ointment (Analgesic [place]) 1 abby PRN QID PRN TP MUSCLE PAIN 02/12/21 10:00 Al Hydroxide/Mg Hydroxide (Mylanta Plus Xs) 15 ml PRN AFTMEALHC PRN PO DYSPEPSIA 02/12/21 10:00 Magnesium Hydroxide (Milk Of Magnesia) 2,400 mg PRN QHS PRN PO CONSTIPATION 02/12/21 10:00 Acetaminophen (Tylenol) 650 mg PRN Q6HRS PRN PO MILD PAIN / TEMP > 100.3'F 02/12/21 12:15 Cancel Albuterol Sulfate (Ventolin) 2.5 mg PRN Q6HRS PRN INH SHORTNESS OF BREATH 02/12/21 12:15 Aspirin (Aspirin Enteric Coated) 81 mg DAILY PO 02/13/21 09:00 02/14/21 05:29 Atorvastatin Calcium (Lipitor) 20 mg QHS PO 02/12/21 21:00 02/14/21 21:12 Buspirone HCl (Buspar) 5 mg BID PO 02/12/21 21:00 02/14/21 21:12 Vitamin D (Vitamin D3) 50,000 unit QFR PO 02/15/21 16:00 Clopidogrel Bisulfate (Plavix) 75 mg DAILY PO 02/13/21 09:00 02/14/21 05:30 Divalproex Sodium (Depakote Sprinkles) 375 mg TID@0900,1300,1700 PO 02/12/21 13:00 02/13/21 15:22 DC 02/13/21 12:47 Ferrous Sulfate (Feosol) 325 mg BID PO 02/12/21 21:00 02/14/21 21:13 Furosemide (Lasix) 20 mg DAILY PO 02/13/21 09:00 02/14/21 05:30 Hydralazine HCl (Apresoline) 12.5 mg PRN Q6HRS PRN PO htn 02/12/21 12:15 Insulin Glargine (Lantus Syringe) 50 unit HS SQ 02/12/21 21:00 02/14/21 21:00 Lisinopril (Prinivil) 20 mg BID PO 02/12/21 21:00 02/14/21 21:14 Multivitamins/ Calcium (Thera-M Plus) 1 tab DAILY PO 02/13/21 09:00 02/14/21 05:31 Ondansetron HCl (Zofran Odt) 4 mg PRN Q6HRS PRN PO NAUSEA/VOMITING 02/12/21 12:15 Prazosin HCl (Minipress) 5 mg BID PO 02/12/21 21:00 02/14/21 21:14 Quetiapine Fumarate (SEROquel) 50 mg DAILY PO 02/13/21 09:00 02/14/21 18:03 DC 02/14/21 05:31 Sodium Chloride (Saline Mist Nasal) 1 abby BID NS 02/12/21 21:00 02/14/21 21:16 Carvedilol (Coreg) 25 mg BIDWMEALS PO 02/12/21 17:00 02/14/21 17:21 Diltiazem HCl (Cardizem) 60 mg TID PO 02/12/21 14:00 02/14/21 21:13 Galantamine Hydrobromide (Razadyne) 4 mg BID PO 02/12/21 21:00 02/14/21 21:13 Glucagon (Glucagen Kit) 1 mg PRN Q15MIN PRN IM LOW BLOOD SUGAR 02/12/21 13:15 Non-Formulary Medication (Insulin Aspart (Novolog)) 70-150 Give 0 un... TIDWMEALS SQ 02/12/21 17:00 02/13/21 17:11 DC Loperamide HCl (Imodium) 2 mg PRN Q2HRS PRN PO DIARRHEA 02/12/21 13:15 Non-Formulary Medication (Methyl Salicylate/ Menthol (Analgesic [place])) 1 abby PRN QID PRN TP MUSCLE PAIN 02/12/21 12:15 02/12/21 13:14 DC Artificial Tears (Refresh Classic) 2 drop PRN QID PRN OU DRY EYE 02/12/21 13:15 Linagliptin (Tradjenta) 5 mg DAILY16 PO 02/12/21 16:00 02/14/21 17:22 Olanzapine (ZyPREXA ZYDIS) 5 mg PRN Q2HR PRN PO PSYCHOSIS 02/12/21 12:30 02/14/21 15:19 Divalproex Sodium (Depakote Sprinkles) 375 mg 1300 PO 02/14/21 13:00 02/14/21 15:20 Divalproex Sodium (Depakote Sprinkles) 500 mg 0900,1700 PO 02/13/21 17:00 02/14/21 17:21 Insulin Human Lispro (HumaLOG) 0-9 UNITS TIDWMEALS SQ 02/14/21 08:00 02/14/21 12:16 Quetiapine Fumarate (SEROquel) 50 mg HS PO 02/15/21 21:00 Quetiapine Fumarate (SEROquel) 25 mg DAILY08 PO 02/15/21 08:00 Current Medications Medications (Trade) Dose Ordered Sig/Romeo Route PRN Reason Start Time Stop Time Status Last Admin Dose Admin Divalproex Sodium (Depakote Sprinkles) 375 mg 1300 PO 02/14/21 13:00 02/14/21 15:20 Insulin Human Lispro (HumaLOG) 0-9 UNITS TIDWMEALS SQ 02/14/21 08:00 02/14/21 12:16 I have reviewed the current psychotropics carefully including drug interactions. Risk benefit ratio favors no change other than as noted in my dictated progress note. Diagnosis: Problems: (1) Dementia in Alzheimer's disease with depression (2) Dementia in Alzheimer's disease with delusions (3) Major neurocognitive disorder (4) Dementia in Alzheimer's disease with early onset with behavioral disturbance (5) Anxiety disorder (6) Dementia, vascular, with delusions (7) Dementia, vascular, with depression (8) Impulse control disorder DEAN GARDNER MD Feb 14, 2021 22:04
[2021-02-15 06:07] VITALS: BP 134/72
--- NOTE | 2021-02-15 07:31 | PDOC ---
Exam Note: [place] Note: This note is a late entry for 02/13/2021 covers elements not covered in my initial note. Subjective: The patient was seen individually in the evening of 02/13/2021 with Anabelle KWOK, discussed and reviewed the chart. He slept 6-3/4 hours previous night. The patient was yelling previous night for his mother, redirected. He had a telephone call with his son this morning, did better after that, not aggressive. Valproic acid level is 38. Review of Systems: Ambulation impaired. No CV, , pulmonary, eye, ENT system symptoms on review. Mental Status Exam: The patient is oriented to himself and situation. I met with him in his room. He did not seem to recognize me readily as he appeared to the day before but he is paranoid, suspicious, believes people walking the hallways are out to target him. Insight and judgment, recent and remote memory, attention and concentration, fund of knowledge is poor consistent with his diagnoses. Laboratory Data: Reviewed. Impression: Major neurocognitive disorder Alzheimer vascular with delusion, depression, behavioral disturbance. Anxiety disorder unspecified. Impulse control disorder unspecified. Plan: Increase Depakote from 375 mg t.i.d. to 500 mg morning and evening and 375 mg in the afternoon. Check CBC, CMP, valproic acid level in 3 days. Continue rest of the psychotropics unchanged from initial note. Assessment: Vital Signs/I&O: Vital Signs Date Time Temp Pulse Resp B/P (MAP) Pulse Ox O2 Delivery O2 Flow Rate FiO2 02/15/21 06:07 97.6 58 18 134/72 (92) 96 02/12/21 07:06 Room Air I & O 02/14/21 02/14/21 02/15/21 15:00 23:00 07:00 Intake Total 720 ml 360 ml Balance 720 ml 360 ml Labs: Laboratory Tests Test 02/14/21 07:59 02/14/21 12:09 02/14/21 17:13 02/14/21 19:06 Glucose (Fingerstick) 150 mg/dL (70-99) H 249 mg/dL (70-99) H 122 mg/dL (70-99) H 191 mg/dL (70-99) H Current Medications: Meds: Laboratory Tests Test 02/14/21 07:59 02/14/21 12:09 02/14/21 17:13 02/14/21 19:06 Glucose (Fingerstick) 150 mg/dL 249 mg/dL 122 mg/dL 191 mg/dL Current Medications Medications (Trade) Dose Ordered Sig/Romeo Route PRN Reason Start Time Stop Time Status Last Admin Dose Admin Hydralazine HCl (Apresoline) 20 mg 1X ONCE IV 02/12/21 02:30 02/12/21 02:24 DC Hydralazine HCl (Apresoline) 10 mg 1X ONCE IV 02/12/21 02:30 02/12/21 02:31 DC 02/12/21 02:35 Hydralazine HCl (Apresoline) 10 mg 1X ONCE IV 02/12/21 03:15 02/12/21 03:16 DC 02/12/21 03:21 Midazolam HCl (Versed) 2.5 mg 1X ONCE IV 02/12/21 05:00 02/12/21 05:01 DC 02/12/21 04:53 Acetaminophen (Tylenol) 650 mg PRN Q6HRS PRN PO MILD PAIN / TEMP > 100.3'F 02/12/21 10:00 02/13/21 11:19 Multi-Ingredient Ointment (Analgesic [place]) 1 abby PRN QID PRN TP MUSCLE PAIN 02/12/21 10:00 Al Hydroxide/Mg Hydroxide (Mylanta Plus Xs) 15 ml PRN AFTMEALHC PRN PO DYSPEPSIA 02/12/21 10:00 Magnesium Hydroxide (Milk Of Magnesia) 2,400 mg PRN QHS PRN PO CONSTIPATION 02/12/21 10:00 Acetaminophen (Tylenol) 650 mg PRN Q6HRS PRN PO MILD PAIN / TEMP > 100.3'F 02/12/21 12:15 Cancel Albuterol Sulfate (Ventolin) 2.5 mg PRN Q6HRS PRN INH SHORTNESS OF BREATH 02/12/21 12:15 Aspirin (Aspirin Enteric Coated) 81 mg DAILY PO 02/13/21 09:00 02/14/21 05:29 Atorvastatin Calcium (Lipitor) 20 mg QHS PO 02/12/21 21:00 02/14/21 21:12 Buspirone HCl (Buspar) 5 mg BID PO 02/12/21 21:00 02/14/21 21:12 Vitamin D (Vitamin D3) 50,000 unit QFR PO 02/15/21 16:00 Clopidogrel Bisulfate (Plavix) 75 mg DAILY PO 02/13/21 09:00 02/14/21 05:30 Divalproex Sodium (Depakote Sprinkles) 375 mg TID@0900,1300,1700 PO 02/12/21 13:00 02/13/21 15:22 DC 02/13/21 12:47 Ferrous Sulfate (Feosol) 325 mg BID PO 02/12/21 21:00 02/14/21 21:13 Furosemide (Lasix) 20 mg DAILY PO 02/13/21 09:00 02/14/21 05:30 Hydralazine HCl (Apresoline) 12.5 mg PRN Q6HRS PRN PO htn 02/12/21 12:15 Insulin Glargine (Lantus Syringe) 50 unit HS SQ 02/12/21 21:00 02/14/21 21:00 Lisinopril (Prinivil) 20 mg BID PO 02/12/21 21:00 02/14/21 21:14 Multivitamins/ Calcium (Thera-M Plus) 1 tab DAILY PO 02/13/21 09:00 02/14/21 05:31 Ondansetron HCl (Zofran Odt) 4 mg PRN Q6HRS PRN PO NAUSEA/VOMITING 02/12/21 12:15 Prazosin HCl (Minipress) 5 mg BID PO 02/12/21 21:00 02/14/21 21:14 Quetiapine Fumarate (SEROquel) 50 mg DAILY PO 02/13/21 09:00 02/14/21 18:03 DC 02/14/21 05:31 Sodium Chloride (Saline Mist Nasal) 1 abby BID NS 02/12/21 21:00 02/14/21 21:16 Carvedilol (Coreg) 25 mg BIDWMEALS PO 02/12/21 17:00 02/14/21 17:21 Diltiazem HCl (Cardizem) 60 mg TID PO 02/12/21 14:00 02/14/21 21:13 Galantamine Hydrobromide (Razadyne) 4 mg BID PO 02/12/21 21:00 02/14/21 21:13 Glucagon (Glucagen Kit) 1 mg PRN Q15MIN PRN IM LOW BLOOD SUGAR 02/12/21 13:15 Non-Formulary Medication (Insulin Aspart (Novolog)) 70-150 Give 0 un... TIDWMEALS SQ 02/12/21 17:00 02/13/21 17:11 DC Loperamide HCl (Imodium) 2 mg PRN Q2HRS PRN PO DIARRHEA 02/12/21 13:15 Non-Formulary Medication (Methyl Salicylate/ Menthol (Analgesic [place])) 1 abby PRN QID PRN TP MUSCLE PAIN 02/12/21 12:15 02/12/21 13:14 DC Artificial Tears (Refresh Classic) 2 drop PRN QID PRN OU DRY EYE 02/12/21 13:15 Linagliptin (Tradjenta) 5 mg DAILY16 PO 02/12/21 16:00 02/14/21 17:22 Olanzapine (ZyPREXA ZYDIS) 5 mg PRN Q2HR PRN PO PSYCHOSIS 02/12/21 12:30 02/15/21 01:11 Divalproex Sodium (Depakote Sprinkles) 375 mg 1300 PO 02/14/21 13:00 02/14/21 15:20 Divalproex Sodium (Depakote Sprinkles) 500 mg 0900,1700 PO 02/13/21 17:00 02/14/21 17:21 Insulin Human Lispro (HumaLOG) 0-9 UNITS TIDWMEALS SQ 02/14/21 08:00 02/14/21 12:16 Quetiapine Fumarate (SEROquel) 50 mg HS PO 02/15/21 21:00 Quetiapine Fumarate (SEROquel) 25 mg DAILY08 PO 02/15/21 08:00 Current Medications Medications (Trade) Dose Ordered Sig/Romeo Route PRN Reason Start Time Stop Time Status Last Admin Dose Admin Divalproex Sodium (Depakote Sprinkles) 375 mg 1300 PO 02/14/21 13:00 02/14/21 15:20 Insulin Human Lispro (HumaLOG) 0-9 UNITS TIDWMEALS SQ 02/14/21 08:00 02/14/21 12:16 I have reviewed the current psychotropics carefully including drug interactions. Risk benefit ratio favors no change other than as noted in my dictated progress note. Diagnosis: Problems: (1) Dementia in Alzheimer's disease with depression (2) Dementia in Alzheimer's disease with delusions (3) Major neurocognitive disorder (4) Dementia in Alzheimer's disease with early onset with behavioral disturbance (5) Anxiety disorder (6) Dementia, vascular, with delusions (7) Dementia, vascular, with depression (8) Impulse control disorder DEAN GARDNER MD Feb 15, 2021 07:31
--- NOTE | 2021-02-15 07:51 | PDOC ---
Exam Note: [place] Note: This note is a late entry for 02/14/2021 covers elements not covered in my initial note. Subjective: The patient was reviewed in the morning of 02/14/2021 for a treatment team meeting with Karen Jo, Hamida Spain and Morena (director social service), Vira, activity therapy and Rayna RN, discussed and reviewed the chart. He slept 7-1/4 hours previous night. The patient has been pleasant, cooperative, compliant with medications, somewhat incontinent. He remains paranoid, suspicious of others on the unit and discussed his diagnosis, disposition plans, treatment plans at the meeting. He does have a red skin on his bottom area, yelling at times, using racial allegations against one of the other patients on the unit. Review of Systems: Ambulation impaired in wheelchair. No CV, , pulmonary, eye, ENT system symptoms on review. Mental Status Exam: The patient is oriented to himself. Insight and judgment, recent and remote memory, attention and concentration, fund of knowledge is poor consistent with his diagnoses. Laboratory Data: Reviewed. Impression: Major neurocognitive disorder Alzheimer vascular with delusion, depression, behavioral disturbance. Anxiety disorder unspecified. Impulse control disorder unspecified. Plan: No change from initial note. Assessment: Vital Signs/I&O: Vital Signs Date Time Temp Pulse Resp B/P (MAP) Pulse Ox O2 Delivery O2 Flow Rate FiO2 02/15/21 06:07 97.6 58 18 134/72 (92) 96 02/12/21 07:06 Room Air I & O 02/14/21 02/14/21 02/15/21 15:00 23:00 07:00 Intake Total 720 ml 360 ml Balance 720 ml 360 ml Labs: Laboratory Tests Test 02/14/21 07:59 02/14/21 12:09 02/14/21 17:13 02/14/21 19:06 Glucose (Fingerstick) 150 mg/dL (70-99) H 249 mg/dL (70-99) H 122 mg/dL (70-99) H 191 mg/dL (70-99) H Test 02/15/21 07:37 Glucose (Fingerstick) 123 mg/dL (70-99) H Current Medications: Meds: Laboratory Tests Test 02/14/21 07:59 02/14/21 12:09 02/14/21 17:13 02/14/21 19:06 Glucose (Fingerstick) 150 mg/dL 249 mg/dL 122 mg/dL 191 mg/dL Test 02/15/21 07:37 Glucose (Fingerstick) 123 mg/dL Current Medications Medications (Trade) Dose Ordered Sig/Romeo Route PRN Reason Start Time Stop Time Status Last Admin Dose Admin Hydralazine HCl (Apresoline) 20 mg 1X ONCE IV 02/12/21 02:30 02/12/21 02:24 DC Hydralazine HCl (Apresoline) 10 mg 1X ONCE IV 02/12/21 02:30 02/12/21 02:31 DC 02/12/21 02:35 Hydralazine HCl (Apresoline) 10 mg 1X ONCE IV 02/12/21 03:15 02/12/21 03:16 DC 02/12/21 03:21 Midazolam HCl (Versed) 2.5 mg 1X ONCE IV 02/12/21 05:00 02/12/21 05:01 DC 02/12/21 04:53 Acetaminophen (Tylenol) 650 mg PRN Q6HRS PRN PO MILD PAIN / TEMP > 100.3'F 02/12/21 10:00 02/13/21 11:19 Multi-Ingredient Ointment (Analgesic [place]) 1 abby PRN QID PRN TP MUSCLE PAIN 02/12/21 10:00 Al Hydroxide/Mg Hydroxide (Mylanta Plus Xs) 15 ml PRN AFTMEALHC PRN PO DYSPEPSIA 02/12/21 10:00 Magnesium Hydroxide (Milk Of Magnesia) 2,400 mg PRN QHS PRN PO CONSTIPATION 02/12/21 10:00 Acetaminophen (Tylenol) 650 mg PRN Q6HRS PRN PO MILD PAIN / TEMP > 100.3'F 02/12/21 12:15 Cancel Albuterol Sulfate (Ventolin) 2.5 mg PRN Q6HRS PRN INH SHORTNESS OF BREATH 02/12/21 12:15 Aspirin (Aspirin Enteric Coated) 81 mg DAILY PO 02/13/21 09:00 02/14/21 05:29 Atorvastatin Calcium (Lipitor) 20 mg QHS PO 02/12/21 21:00 02/14/21 21:12 Buspirone HCl (Buspar) 5 mg BID PO 02/12/21 21:00 02/14/21 21:12 Vitamin D (Vitamin D3) 50,000 unit QFR PO 02/15/21 16:00 Clopidogrel Bisulfate (Plavix) 75 mg DAILY PO 02/13/21 09:00 02/14/21 05:30 Divalproex Sodium (Depakote Sprinkles) 375 mg TID@0900,1300,1700 PO 02/12/21 13:00 02/13/21 15:22 DC 02/13/21 12:47 Ferrous Sulfate (Feosol) 325 mg BID PO 02/12/21 21:00 02/14/21 21:13 Furosemide (Lasix) 20 mg DAILY PO 02/13/21 09:00 02/14/21 05:30 Hydralazine HCl (Apresoline) 12.5 mg PRN Q6HRS PRN PO htn 02/12/21 12:15 Insulin Glargine (Lantus Syringe) 50 unit HS SQ 02/12/21 21:00 02/14/21 21:00 Lisinopril (Prinivil) 20 mg BID PO 02/12/21 21:00 02/14/21 21:14 Multivitamins/ Calcium (Thera-M Plus) 1 tab DAILY PO 02/13/21 09:00 02/14/21 05:31 Ondansetron HCl (Zofran Odt) 4 mg PRN Q6HRS PRN PO NAUSEA/VOMITING 02/12/21 12:15 Prazosin HCl (Minipress) 5 mg BID PO 02/12/21 21:00 02/14/21 21:14 Quetiapine Fumarate (SEROquel) 50 mg DAILY PO 02/13/21 09:00 02/14/21 18:03 DC 02/14/21 05:31 Sodium Chloride (Saline Mist Nasal) 1 abby BID NS 02/12/21 21:00 02/14/21 21:16 Carvedilol (Coreg) 25 mg BIDWMEALS PO 02/12/21 17:00 02/14/21 17:21 Diltiazem HCl (Cardizem) 60 mg TID PO 02/12/21 14:00 02/14/21 21:13 Galantamine Hydrobromide (Razadyne) 4 mg BID PO 02/12/21 21:00 02/14/21 21:13 Glucagon (Glucagen Kit) 1 mg PRN Q15MIN PRN IM LOW BLOOD SUGAR 02/12/21 13:15 Non-Formulary Medication (Insulin Aspart (Novolog)) 70-150 Give 0 un... TIDWMEALS SQ 02/12/21 17:00 02/13/21 17:11 DC Loperamide HCl (Imodium) 2 mg PRN Q2HRS PRN PO DIARRHEA 02/12/21 13:15 Non-Formulary Medication (Methyl Salicylate/ Menthol (Analgesic [place])) 1 abby PRN QID PRN TP MUSCLE PAIN 02/12/21 12:15 02/12/21 13:14 DC Artificial Tears (Refresh Classic) 2 drop PRN QID PRN OU DRY EYE 02/12/21 13:15 Linagliptin (Tradjenta) 5 mg DAILY16 PO 02/12/21 16:00 02/14/21 17:22 Olanzapine (ZyPREXA ZYDIS) 5 mg PRN Q2HR PRN PO PSYCHOSIS 02/12/21 12:30 02/15/21 01:11 Divalproex Sodium (Depakote Sprinkles) 375 mg 1300 PO 02/14/21 13:00 02/14/21 15:20 Divalproex Sodium (Depakote Sprinkles) 500 mg 0900,1700 PO 02/13/21 17:00 02/14/21 17:21 Insulin Human Lispro (HumaLOG) 0-9 UNITS TIDWMEALS SQ 02/14/21 08:00 02/14/21 12:16 Quetiapine Fumarate (SEROquel) 50 mg HS PO 02/15/21 21:00 Quetiapine Fumarate (SEROquel) 25 mg DAILY08 PO 02/15/21 08:00 Current Medications Medications (Trade) Dose Ordered Sig/Romeo Route PRN Reason Start Time Stop Time Status Last Admin Dose Admin Divalproex Sodium (Depakote Sprinkles) 375 mg 1300 PO 02/14/21 13:00 02/14/21 15:20 Insulin Human Lispro (HumaLOG) 0-9 UNITS TIDWMEALS SQ 02/14/21 08:00 02/14/21 12:16 I have reviewed the current psychotropics carefully including drug interactions. Risk benefit ratio favors no change other than as noted in my dictated progress note. Diagnosis: Problems: (1) Dementia in Alzheimer's disease with depression (2) Dementia in Alzheimer's disease with delusions (3) Major neurocognitive disorder (4) Dementia in Alzheimer's disease with early onset with behavioral disturbance (5) Anxiety disorder (6) Dementia, vascular, with delusions (7) Dementia, vascular, with depression (8) Impulse control disorder DEAN GARDNER MD Feb 15, 2021 07:51
[2021-02-15] MEDS: INSULIN LISPRO 300 UNITS/3 ML VIAL. SQ SCH ×3 (08:00→17:00)
[2021-02-15] MEDS: busPIRone 5 MG TABLET. PO SCH ×2 (09:09→21:46)
[2021-02-15] MEDS: CLOPIDOGREL BISULFATE 75 MG TABLET PO SCH (09:09)
[2021-02-15] MEDS: FERROUS SULFATE 325 MG TABLET. PO SCH ×2 (09:09→21:00)
[2021-02-15] MEDS: PRAZOSIN 5 MG CAPSULE. PO SCH ×2 (09:10→21:00)
[2021-02-15] MEDS: CARVEDILOL 12.5 MG TABLET PO SCH ×2 (09:10→17:33)
[2021-02-15] MEDS: dilTIAZem HCL 30 MG TABLET PO SCH ×3 (09:10→21:47)
[2021-02-15] MEDS: LISINOPRIL 10 MG TABLET PO SCH ×2 (09:10→21:00)
[2021-02-15] MEDS: QUEtiapine 25 MG TABLET. PO SCH (09:11)
[2021-02-15] MEDS: FUROSEMIDE 20 MG TABLET PO SCH (09:11)
[2021-02-15] MEDS: DIVALPROEX 125 MG CAP.SPRINK PO SCH ×3 (09:11→17:33)
[2021-02-15] MEDS: MULTIVITAMIN with MINERAL TABLET. PO SCH (09:11)
[2021-02-15] MEDS: ASPIRIN ENTERIC COATED 81 MG TABLET.DR. PO SCH (09:11)
[2021-02-15] MEDS: GALANTAMINE 4 MG TABLET PO SCH ×2 (09:11→21:00)
[2021-02-15] MEDS: SODIUM CHLORIDE 0.65% NASAL SPRAY 45ML BOTTLE. NS SCH ×2 (09:12→21:46)
[2021-02-15] MEDS: ACETAMINOPHEN 325 MG TABLET PO PRN (09:49)
[2021-02-15 15:37] VITALS: BP 166/68
[2021-02-15] MEDS: CHOLECALCIFEROL (VITAMIN D3) 50,000 UNIT CAPSULE PO SCH (17:32)
[2021-02-15] MEDS: LINAGLIPTIN 5 MG TABLET PO SCH (17:32)
[2021-02-15] MEDS: INSULIN GLARGINE SYRINGE. SQ SCH (21:00)
[2021-02-15] MEDS: QUEtiapine 50 MG TABLET. PO SCH (21:46)
[2021-02-15] MEDS: ATORVASTATIN CALCIUM 20 MG TABLET PO SCH (21:46)
--- NOTE | 2021-02-15 22:10 | PDOC ---
Exam Note: [place] Note: Please also refer to the separate dictated note~for this date of service dictated separately.~Patient seen individually. Discussed the patient with Nursing staff reviewed the chart.~Reviewed interim history and current functioning. Reviewed vital signs,~Labs/ Radiology~and current medications noted below. Continue current treatment with the changes noted in the dictated addendum note Assessment: Vital Signs/I&O: Vital Signs Date Time Temp Pulse Resp B/P (MAP) Pulse Ox O2 Delivery O2 Flow Rate FiO2 02/15/21 21:47 67 166/68 02/15/21 15:37 97.2 20 98 Room Air I & O 02/14/21 02/14/21 02/15/21 15:00 23:00 07:00 Intake Total 720 ml 360 ml Balance 720 ml 360 ml Labs: Laboratory Tests Test 02/15/21 07:37 02/15/21 12:24 02/15/21 17:07 02/15/21 19:24 Glucose (Fingerstick) 123 mg/dL (70-99) H 206 mg/dL (70-99) H 80 mg/dL (70-99) 210 mg/dL (70-99) H Current Medications: Meds: Laboratory Tests Test 02/15/21 07:37 02/15/21 12:24 02/15/21 17:07 02/15/21 19:24 Glucose (Fingerstick) 123 mg/dL 206 mg/dL 80 mg/dL 210 mg/dL Current Medications Medications (Trade) Dose Ordered Sig/Romeo Route PRN Reason Start Time Stop Time Status Last Admin Dose Admin Hydralazine HCl (Apresoline) 20 mg 1X ONCE IV 02/12/21 02:30 02/12/21 02:24 DC Hydralazine HCl (Apresoline) 10 mg 1X ONCE IV 02/12/21 02:30 02/12/21 02:31 DC 02/12/21 02:35 Hydralazine HCl (Apresoline) 10 mg 1X ONCE IV 02/12/21 03:15 02/12/21 03:16 DC 02/12/21 03:21 Midazolam HCl (Versed) 2.5 mg 1X ONCE IV 02/12/21 05:00 02/12/21 05:01 DC 02/12/21 04:53 Acetaminophen (Tylenol) 650 mg PRN Q6HRS PRN PO MILD PAIN / TEMP > 100.3'F 02/12/21 10:00 02/15/21 09:49 Multi-Ingredient Ointment (Analgesic [place]) 1 abby PRN QID PRN TP MUSCLE PAIN 02/12/21 10:00 Al Hydroxide/Mg Hydroxide (Mylanta Plus Xs) 15 ml PRN AFTMEALHC PRN PO DYSPEPSIA 02/12/21 10:00 Magnesium Hydroxide (Milk Of Magnesia) 2,400 mg PRN QHS PRN PO CONSTIPATION 02/12/21 10:00 Acetaminophen (Tylenol) 650 mg PRN Q6HRS PRN PO MILD PAIN / TEMP > 100.3'F 02/12/21 12:15 Cancel Albuterol Sulfate (Ventolin) 2.5 mg PRN Q6HRS PRN INH SHORTNESS OF BREATH 02/12/21 12:15 Aspirin (Aspirin Enteric Coated) 81 mg DAILY PO 02/13/21 09:00 02/15/21 09:11 Atorvastatin Calcium (Lipitor) 20 mg QHS PO 02/12/21 21:00 02/15/21 21:46 Buspirone HCl (Buspar) 5 mg BID PO 02/12/21 21:00 02/15/21 21:46 Vitamin D (Vitamin D3) 50,000 unit QFR PO 02/15/21 16:00 02/15/21 17:32 Clopidogrel Bisulfate (Plavix) 75 mg DAILY PO 02/13/21 09:00 02/15/21 09:09 Divalproex Sodium (Depakote Sprinkles) 375 mg TID@0900,1300,1700 PO 02/12/21 13:00 02/13/21 15:22 DC 02/13/21 12:47 Ferrous Sulfate (Feosol) 325 mg BID PO 02/12/21 21:00 02/15/21 21:00 Furosemide (Lasix) 20 mg DAILY PO 02/13/21 09:00 02/15/21 09:11 Hydralazine HCl (Apresoline) 12.5 mg PRN Q6HRS PRN PO htn 02/12/21 12:15 Insulin Glargine (Lantus Syringe) 50 unit HS SQ 02/12/21 21:00 02/15/21 21:00 Lisinopril (Prinivil) 20 mg BID PO 02/12/21 21:00 02/15/21 21:00 Multivitamins/ Calcium (Thera-M Plus) 1 tab DAILY PO 02/13/21 09:00 02/15/21 09:11 Ondansetron HCl (Zofran Odt) 4 mg PRN Q6HRS PRN PO NAUSEA/VOMITING 02/12/21 12:15 Prazosin HCl (Minipress) 5 mg BID PO 02/12/21 21:00 02/15/21 21:00 Quetiapine Fumarate (SEROquel) 50 mg DAILY PO 02/13/21 09:00 02/14/21 18:03 DC 02/14/21 05:31 Sodium Chloride (Saline Mist Nasal) 1 abby BID NS 02/12/21 21:00 02/15/21 21:46 Carvedilol (Coreg) 25 mg BIDWMEALS PO 02/12/21 17:00 02/15/21 17:33 Diltiazem HCl (Cardizem) 60 mg TID PO 02/12/21 14:00 02/15/21 21:47 Galantamine Hydrobromide (Razadyne) 4 mg BID PO 02/12/21 21:00 02/15/21 21:00 Glucagon (Glucagen Kit) 1 mg PRN Q15MIN PRN IM LOW BLOOD SUGAR 02/12/21 13:15 Non-Formulary Medication (Insulin Aspart (Novolog)) 70-150 Give 0 un... TIDWMEALS SQ 02/12/21 17:00 02/13/21 17:11 DC Loperamide HCl (Imodium) 2 mg PRN Q2HRS PRN PO DIARRHEA 02/12/21 13:15 Non-Formulary Medication (Methyl Salicylate/ Menthol (Analgesic [place])) 1 abby PRN QID PRN TP MUSCLE PAIN 02/12/21 12:15 02/12/21 13:14 DC Artificial Tears (Refresh Classic) 2 drop PRN QID PRN OU DRY EYE 02/12/21 13:15 Linagliptin (Tradjenta) 5 mg DAILY16 PO 02/12/21 16:00 02/15/21 17:32 Olanzapine (ZyPREXA ZYDIS) 5 mg PRN Q2HR PRN PO PSYCHOSIS 02/12/21 12:30 02/15/21 21:55 Divalproex Sodium (Depakote Sprinkles) 375 mg 1300 PO 02/14/21 13:00 02/15/21 12:37 Divalproex Sodium (Depakote Sprinkles) 500 mg 0900,1700 PO 02/13/21 17:00 02/15/21 17:33 Insulin Human Lispro (HumaLOG) 0-9 UNITS TIDWMEALS SQ 02/14/21 08:00 02/15/21 12:40 Quetiapine Fumarate (SEROquel) 50 mg HS PO 02/15/21 21:00 02/15/21 21:46 Quetiapine Fumarate (SEROquel) 25 mg DAILY08 PO 02/15/21 08:00 02/15/21 09:11 Current Medications Medications (Trade) Dose Ordered Sig/Romeo Route PRN Reason Start Time Stop Time Status Last Admin Dose Admin Vitamin D (Vitamin D3) 50,000 unit QFR PO 02/15/21 16:00 02/15/21 17:32 Quetiapine Fumarate (SEROquel) 50 mg HS PO 02/15/21 21:00 02/15/21 21:46 Quetiapine Fumarate (SEROquel) 25 mg DAILY08 PO 02/15/21 08:00 02/15/21 09:11 I have reviewed the current psychotropics carefully including drug interactions. Risk benefit ratio favors no change other than as noted in my dictated progress note. Diagnosis: Problems: (1) Dementia in Alzheimer's disease with depression (2) Dementia in Alzheimer's disease with delusions (3) Major neurocognitive disorder (4) Dementia in Alzheimer's disease with early onset with behavioral disturbance (5) Anxiety disorder (6) Dementia, vascular, with delusions (7) Dementia, vascular, with depression (8) Impulse control disorder DEAN GARDNER MD Feb 15, 2021 22:09
[2021-02-16 06:48] VITALS: BP 135/77
[2021-02-16] MEDS: INSULIN LISPRO 300 UNITS/3 ML VIAL. SQ SCH ×3 (08:00→17:00)
[2021-02-16] MEDS: SODIUM CHLORIDE 0.65% NASAL SPRAY 45ML BOTTLE. NS SCH ×2 (09:00→20:41)
[2021-02-16] MEDS: GALANTAMINE 4 MG TABLET PO SCH ×2 (09:18→20:45)
[2021-02-16] MEDS: DIVALPROEX 125 MG CAP.SPRINK PO SCH ×3 (09:18→17:00)
[2021-02-16] MEDS: LISINOPRIL 10 MG TABLET PO SCH ×2 (09:18→20:47)
[2021-02-16] MEDS: MULTIVITAMIN with MINERAL TABLET. PO SCH (09:19)
[2021-02-16] MEDS: ASPIRIN ENTERIC COATED 81 MG TABLET.DR. PO SCH (09:19)
[2021-02-16] MEDS: PRAZOSIN 5 MG CAPSULE. PO SCH ×3 (09:19→20:47)
[2021-02-16] MEDS: FUROSEMIDE 20 MG TABLET PO SCH (09:19)
[2021-02-16] MEDS: QUEtiapine 25 MG TABLET. PO SCH (09:19)
[2021-02-16] MEDS: FERROUS SULFATE 325 MG TABLET. PO SCH ×2 (09:19→20:45)
[2021-02-16] MEDS: busPIRone 5 MG TABLET. PO SCH ×2 (09:19→20:43)
[2021-02-16] MEDS: CLOPIDOGREL BISULFATE 75 MG TABLET PO SCH (09:19)
[2021-02-16] MEDS: CARVEDILOL 12.5 MG TABLET PO SCH ×2 (09:20→17:00)
[2021-02-16] MEDS: dilTIAZem HCL 30 MG TABLET PO SCH ×3 (09:21→20:47)
[2021-02-16 15:58] VITALS: BP 103/56
[2021-02-16] MEDS: LINAGLIPTIN 5 MG TABLET PO SCH (16:00)
[2021-02-16] MEDS: INSULIN GLARGINE SYRINGE. SQ SCH (20:44)
[2021-02-16] MEDS: QUEtiapine 50 MG TABLET. PO SCH (20:44)
[2021-02-16] MEDS: ATORVASTATIN CALCIUM 20 MG TABLET PO SCH (20:45)
--- NOTE | 2021-02-16 22:04 | PDOC ---
Exam Note: [place] Note: Please also refer to the separate dictated note~for this date of service dictated separately.~Patient seen individually. Discussed the patient with Nursing staff reviewed the chart.~Reviewed interim history and current functioning. Reviewed vital signs,~Labs/ Radiology~and current medications noted below. Continue current treatment with the changes noted in the dictated addendum note Assessment: Vital Signs/I&O: Vital Signs Date Time Temp Pulse Resp B/P (MAP) Pulse Ox O2 Delivery O2 Flow Rate FiO2 02/16/21 20:47 58 103/56 02/16/21 15:58 98.2 18 95 02/15/21 15:37 Room Air I & O 02/15/21 02/15/21 02/16/21 15:00 23:00 07:00 Intake Total 200 ml 240 ml 120 ml Balance 200 ml 240 ml 120 ml Labs: Laboratory Tests Test 02/16/21 07:58 02/16/21 12:07 02/16/21 17:12 02/16/21 19:39 Glucose (Fingerstick) 107 mg/dL (70-99) H 164 mg/dL (70-99) H 137 mg/dL (70-99) H 168 mg/dL (70-99) H Current Medications: Meds: Laboratory Tests Test 02/16/21 07:58 02/16/21 12:07 02/16/21 17:12 02/16/21 19:39 Glucose (Fingerstick) 107 mg/dL 164 mg/dL 137 mg/dL 168 mg/dL Current Medications Medications (Trade) Dose Ordered Sig/Romeo Route PRN Reason Start Time Stop Time Status Last Admin Dose Admin Hydralazine HCl (Apresoline) 20 mg 1X ONCE IV 02/12/21 02:30 02/12/21 02:24 DC Hydralazine HCl (Apresoline) 10 mg 1X ONCE IV 02/12/21 02:30 02/12/21 02:31 DC 02/12/21 02:35 Hydralazine HCl (Apresoline) 10 mg 1X ONCE IV 02/12/21 03:15 02/12/21 03:16 DC 02/12/21 03:21 Midazolam HCl (Versed) 2.5 mg 1X ONCE IV 02/12/21 05:00 02/12/21 05:01 DC 02/12/21 04:53 Acetaminophen (Tylenol) 650 mg PRN Q6HRS PRN PO MILD PAIN / TEMP > 100.3'F 02/12/21 10:00 02/15/21 09:49 Multi-Ingredient Ointment (Analgesic [place]) 1 abby PRN QID PRN TP MUSCLE PAIN 02/12/21 10:00 Al Hydroxide/Mg Hydroxide (Mylanta Plus Xs) 15 ml PRN AFTMEALHC PRN PO DYSPEPSIA 02/12/21 10:00 Magnesium Hydroxide (Milk Of Magnesia) 2,400 mg PRN QHS PRN PO CONSTIPATION 02/12/21 10:00 Acetaminophen (Tylenol) 650 mg PRN Q6HRS PRN PO MILD PAIN / TEMP > 100.3'F 02/12/21 12:15 Cancel Albuterol Sulfate (Ventolin) 2.5 mg PRN Q6HRS PRN INH SHORTNESS OF BREATH 02/12/21 12:15 Aspirin (Aspirin Enteric Coated) 81 mg DAILY PO 02/13/21 09:00 02/16/21 09:19 Atorvastatin Calcium (Lipitor) 20 mg QHS PO 02/12/21 21:00 02/16/21 20:45 Buspirone HCl (Buspar) 5 mg BID PO 02/12/21 21:00 02/16/21 20:43 Vitamin D (Vitamin D3) 50,000 unit QFR PO 02/15/21 16:00 02/15/21 17:32 Clopidogrel Bisulfate (Plavix) 75 mg DAILY PO 02/13/21 09:00 02/16/21 09:19 Divalproex Sodium (Depakote Sprinkles) 375 mg TID@0900,1300,1700 PO 02/12/21 13:00 02/13/21 15:22 DC 02/13/21 12:47 Ferrous Sulfate (Feosol) 325 mg BID PO 02/12/21 21:00 02/16/21 20:45 Furosemide (Lasix) 20 mg DAILY PO 02/13/21 09:00 02/16/21 09:19 Hydralazine HCl (Apresoline) 12.5 mg PRN Q6HRS PRN PO htn 02/12/21 12:15 Insulin Glargine (Lantus Syringe) 50 unit HS SQ 02/12/21 21:00 02/16/21 20:44 Lisinopril (Prinivil) 20 mg BID PO 02/12/21 21:00 02/16/21 09:18 Multivitamins/ Calcium (Thera-M Plus) 1 tab DAILY PO 02/13/21 09:00 02/16/21 09:19 Ondansetron HCl (Zofran Odt) 4 mg PRN Q6HRS PRN PO NAUSEA/VOMITING 02/12/21 12:15 Prazosin HCl (Minipress) 5 mg BID PO 02/12/21 21:00 02/16/21 09:19 Quetiapine Fumarate (SEROquel) 50 mg DAILY PO 02/13/21 09:00 02/14/21 18:03 DC 02/14/21 05:31 Sodium Chloride (Saline Mist Nasal) 1 abby BID NS 02/12/21 21:00 02/16/21 20:41 Carvedilol (Coreg) 25 mg BIDWMEALS PO 02/12/21 17:00 02/16/21 09:20 Diltiazem HCl (Cardizem) 60 mg TID PO 02/12/21 14:00 02/16/21 13:31 Galantamine Hydrobromide (Razadyne) 4 mg BID PO 02/12/21 21:00 02/16/21 20:45 Glucagon (Glucagen Kit) 1 mg PRN Q15MIN PRN IM LOW BLOOD SUGAR 02/12/21 13:15 Non-Formulary Medication (Insulin Aspart (Novolog)) 70-150 Give 0 un... TIDWMEALS SQ 02/12/21 17:00 02/13/21 17:11 DC Loperamide HCl (Imodium) 2 mg PRN Q2HRS PRN PO DIARRHEA 02/12/21 13:15 Non-Formulary Medication (Methyl Salicylate/ Menthol (Analgesic [place])) 1 abby PRN QID PRN TP MUSCLE PAIN 02/12/21 12:15 02/12/21 13:14 DC Artificial Tears (Refresh Classic) 2 drop PRN QID PRN OU DRY EYE 02/12/21 13:15 Linagliptin (Tradjenta) 5 mg DAILY16 PO 02/12/21 16:00 02/15/21 17:32 Olanzapine (ZyPREXA ZYDIS) 5 mg PRN Q2HR PRN PO PSYCHOSIS 02/12/21 12:30 02/16/21 20:45 Divalproex Sodium (Depakote Sprinkles) 375 mg 1300 PO 02/14/21 13:00 02/16/21 13:00 Divalproex Sodium (Depakote Sprinkles) 500 mg 0900,1700 PO 02/13/21 17:00 02/16/21 09:18 Insulin Human Lispro (HumaLOG) 0-9 UNITS TIDWMEALS SQ 02/14/21 08:00 02/15/21 12:40 Quetiapine Fumarate (SEROquel) 50 mg HS PO 02/15/21 21:00 02/16/21 20:44 Quetiapine Fumarate (SEROquel) 25 mg DAILY08 PO 02/15/21 08:00 02/16/21 09:19 I have reviewed the current psychotropics carefully including drug interactions. Risk benefit ratio favors no change other than as noted in my dictated progress note. Diagnosis: Problems: (1) Dementia in Alzheimer's disease with depression (2) Dementia in Alzheimer's disease with delusions (3) Major neurocognitive disorder (4) Dementia in Alzheimer's disease with early onset with behavioral disturbance (5) Anxiety disorder (6) Dementia, vascular, with delusions (7) Dementia, vascular, with depression (8) Impulse control disorder DEAN GARDNER MD Feb 16, 2021 22:04
[2021-02-17 06:22] VITALS: BP 119/75
[2021-02-17] MEDS: INSULIN LISPRO 300 UNITS/3 ML VIAL. SQ SCH ×3 (08:00→17:12)
[2021-02-17] MEDS: FUROSEMIDE 20 MG TABLET PO SCH (08:55)
[2021-02-17] MEDS: dilTIAZem HCL 30 MG TABLET PO SCH ×3 (08:55→20:27)
[2021-02-17] MEDS: FERROUS SULFATE 325 MG TABLET. PO SCH ×2 (08:56→20:27)
[2021-02-17] MEDS: CARVEDILOL 12.5 MG TABLET PO SCH ×2 (08:56→17:00)
[2021-02-17] MEDS: PRAZOSIN 5 MG CAPSULE. PO SCH ×2 (08:56→20:26)
[2021-02-17] MEDS: CLOPIDOGREL BISULFATE 75 MG TABLET PO SCH (08:56)
[2021-02-17] MEDS: ASPIRIN ENTERIC COATED 81 MG TABLET.DR. PO SCH (08:57)
[2021-02-17] MEDS: LISINOPRIL 10 MG TABLET PO SCH ×2 (08:57→20:29)
[2021-02-17] MEDS: MULTIVITAMIN with MINERAL TABLET. PO SCH (08:57)
[2021-02-17] MEDS: busPIRone 5 MG TABLET. PO SCH ×2 (08:57→20:27)
[2021-02-17] MEDS: QUEtiapine 25 MG TABLET. PO SCH (08:57)
[2021-02-17] MEDS: DIVALPROEX 125 MG CAP.SPRINK PO SCH ×3 (08:57→17:00)
[2021-02-17] MEDS: GALANTAMINE 4 MG TABLET PO SCH ×2 (08:57→20:28)
[2021-02-17] MEDS: SODIUM CHLORIDE 0.65% NASAL SPRAY 45ML BOTTLE. NS SCH ×2 (08:59→20:25)
[2021-02-17 11:55] LABS: BASO % 0 % (0-3); EOS # 0.2 x10^3/uL (0.0-0.7); EOS % 3 % (0-3); HEMATOCRIT 38.8 % (39.0-53.0); HEMOGLOBIN 12.6 g/dL (13.0-17.5); LYMPH # 1.9 x10^3/uL (1.0-4.8); LYMPH % 30 % (24-48); MEAN CORPUSCULAR HEMOGLOBIN 30 pg (25-35); MEAN CORPUSCULAR HGB CONC 33 g/dL (31-37); MEAN CORPUSCULAR VOLUME 92 fL (79-100); MONO # 0.6 x10^3/uL (0.0-1.1); MONO % 10 % (0-9); NEUT # 3.7 x10^3uL (1.8-7.7); NEUT % 57 % (31-73); PLATELET COUNT 147 x10^3/uL (140-400); RED BLOOD COUNT 4.23 x10^6/uL (4.30-5.70); RED CELL DISTRIBUTION WIDTH 15.6 % (11.5-14.5); WHITE BLOOD COUNT 6.5 x10^3/uL (4.0-11.0)
[2021-02-17 12:05] LABS: ALBUMIN 3.1 g/dL (3.4-5.0); ALBUMIN/GLOBULIN RATIO 0.8 (1.0-1.7); ALK PHOS 55 U/L (46-116); ALT (SGPT) 41 U/L (16-63); ANION GAP 12 (6-14); AST (SGOT) 36 U/L (15-37); BLOOD UREA NITROGEN 28 mg/dL (8-26); BUN/CREATININE RATIO 19 (6-20); CALCIUM 8.8 mg/dL (8.5-10.1); CARBON DIOXIDE 22 mmol/L (21-32); CHLORIDE 108 mmol/L (98-107); CREATININE 1.5 mg/dL (0.7-1.3); GFR 55.8; GLUCOSE 163 mg/dL (70-99); POTASSIUM 4.1 mmol/L (3.5-5.1); SODIUM 142 mmol/L (136-145); TOTAL BILIRUBIN 0.6 mg/dL (0.2-1.0); TOTAL PROTEIN 7.2 g/dL (6.4-8.2)
[2021-02-17 12:19] LABS: VAL ACID 49 mcg/mL (50-100)
[2021-02-17] MEDS: ACETAMINOPHEN 325 MG TABLET PO PRN ×2 (12:24→20:30)
[2021-02-17] MEDS: LINAGLIPTIN 5 MG TABLET PO SCH (16:00)
[2021-02-17 16:06] VITALS: BP 164/74
[2021-02-17] MEDS: ATORVASTATIN CALCIUM 20 MG TABLET PO SCH (20:26)
[2021-02-17] MEDS: QUEtiapine 50 MG TABLET. PO SCH (20:28)
[2021-02-17] MEDS: INSULIN GLARGINE SYRINGE. SQ SCH (20:31)
--- NOTE | 2021-02-17 22:13 | PDOC ---
Exam Note: [place] Note: Please also refer to the separate dictated note~for this date of service dictated separately.~Patient seen individually. Discussed the patient with Nursing staff reviewed the chart.~Reviewed interim history and current functioning. Reviewed vital signs,~Labs/ Radiology~and current medications noted below. Continue current treatment with the changes noted in the dictated addendum note Assessment: Vital Signs/I&O: Vital Signs Date Time Temp Pulse Resp B/P (MAP) Pulse Ox O2 Delivery O2 Flow Rate FiO2 02/17/21 20:29 74 164/74 02/17/21 16:06 97.7 18 96 02/15/21 15:37 Room Air I & O 02/16/21 02/16/21 02/17/21 14:59 22:59 06:59 Intake Total 600 ml 480 ml Balance 600 ml 480 ml Labs: Laboratory Tests Test 02/17/21 08:05 02/17/21 10:35 02/17/21 11:53 02/17/21 17:08 Glucose (Fingerstick) 70 mg/dL (70-99) 208 mg/dL (70-99) H 153 mg/dL (70-99) H White Blood Count 6.5 x10^3/uL (4.0-11.0) Red Blood Count 4.23 x10^6/uL (4.30-5.70) L Hemoglobin 12.6 g/dL (13.0-17.5) L Hematocrit 38.8 % (39.0-53.0) L Mean Corpuscular Volume 92 fL (79-100) Mean Corpuscular Hemoglobin 30 pg (25-35) Mean Corpuscular Hemoglobin Concent 33 g/dL (31-37) Red Cell Distribution Width 15.6 % (11.5-14.5) H Platelet Count 147 x10^3/uL (140-400) Neutrophils (%) (Auto) 57 % (31-73) Lymphocytes (%) (Auto) 30 % (24-48) Monocytes (%) (Auto) 10 % (0-9) H Eosinophils (%) (Auto) 3 % (0-3) Basophils (%) (Auto) 0 % (0-3) Neutrophils # (Auto) 3.7 x10^3uL (1.8-7.7) Lymphocytes # (Auto) 1.9 x10^3/uL (1.0-4.8) Monocytes # (Auto) 0.6 x10^3/uL (0.0-1.1) Eosinophils # (Auto) 0.2 x10^3/uL (0.0-0.7) Basophils # (Auto) 0.0 x10^3/uL (0.0-0.2) Sodium Level 142 mmol/L (136-145) Potassium Level 4.1 mmol/L (3.5-5.1) Chloride Level 108 mmol/L (98-107) H Carbon Dioxide Level 22 mmol/L (21-32) Anion Gap 12 (6-14) Blood Urea Nitrogen 28 mg/dL (8-26) H Creatinine 1.5 mg/dL (0.7-1.3) H Estimated GFR (Cockcroft-Gault) 55.8 BUN/Creatinine Ratio 19 (6-20) Glucose Level 163 mg/dL (70-99) H Calcium Level 8.8 mg/dL (8.5-10.1) Total Bilirubin 0.6 mg/dL (0.2-1.0) Aspartate Amino Transferase (AST) 36 U/L (15-37) Alanine Aminotransferase (ALT) 41 U/L (16-63) Alkaline Phosphatase 55 U/L (46-116) Total Protein 7.2 g/dL (6.4-8.2) Albumin 3.1 g/dL (3.4-5.0) L Albumin/Globulin Ratio 0.8 (1.0-1.7) L Valproic Acid Level 49 mcg/mL (50-100) L Valproic Acid Last Dose Date 02/16/2021 Valproic Acid Last Dose Time 1700 Test 02/17/21 19:35 Glucose (Fingerstick) 222 mg/dL (70-99) H Current Medications: Meds: Laboratory Tests Test 02/17/21 08:05 02/17/21 10:35 02/17/21 11:53 02/17/21 17:08 Glucose (Fingerstick) 70 mg/dL 208 mg/dL 153 mg/dL White Blood Count 6.5 x10^3/uL Red Blood Count 4.23 x10^6/uL Hemoglobin 12.6 g/dL Hematocrit 38.8 % Mean Corpuscular Volume 92 fL Mean Corpuscular Hemoglobin 30 pg Mean Corpuscular Hemoglobin Concent 33 g/dL Red Cell Distribution Width 15.6 % Platelet Count 147 x10^3/uL Neutrophils (%) (Auto) 57 % Lymphocytes (%) (Auto) 30 % Monocytes (%) (Auto) 10 % Eosinophils (%) (Auto) 3 % Basophils (%) (Auto) 0 % Neutrophils # (Auto) 3.7 x10^3uL Lymphocytes # (Auto) 1.9 x10^3/uL Monocytes # (Auto) 0.6 x10^3/uL Eosinophils # (Auto) 0.2 x10^3/uL Basophils # (Auto) 0.0 x10^3/uL Sodium Level 142 mmol/L Potassium Level 4.1 mmol/L Chloride Level 108 mmol/L Carbon Dioxide Level 22 mmol/L Anion Gap 12 Blood Urea Nitrogen 28 mg/dL Creatinine 1.5 mg/dL Estimated GFR (Cockcroft-Gault) 55.8 BUN/Creatinine Ratio 19 Glucose Level 163 mg/dL Calcium Level 8.8 mg/dL Total Bilirubin 0.6 mg/dL Aspartate Amino Transf (AST/SGOT) 36 U/L Alanine Aminotransferase (ALT/SGPT) 41 U/L Alkaline Phosphatase 55 U/L Total Protein 7.2 g/dL Albumin 3.1 g/dL Albumin/Globulin Ratio 0.8 Valproic Acid (Depakene) Level 49 mcg/mL Valproic Acid Last Dose Date 02/16/2021 Valproic Acid Last Dose Time 1700 Test 02/17/21 19:35 Glucose (Fingerstick) 222 mg/dL Current Medications Medications (Trade) Dose Ordered Sig/Romeo Route PRN Reason Start Time Stop Time Status Last Admin Dose Admin Hydralazine HCl (Apresoline) 20 mg 1X ONCE IV 02/12/21 02:30 02/12/21 02:24 DC Hydralazine HCl (Apresoline) 10 mg 1X ONCE IV 02/12/21 02:30 02/12/21 02:31 DC 02/12/21 02:35 Hydralazine HCl (Apresoline) 10 mg 1X ONCE IV 02/12/21 03:15 02/12/21 03:16 DC 02/12/21 03:21 Midazolam HCl (Versed) 2.5 mg 1X ONCE IV 02/12/21 05:00 02/12/21 05:01 DC 02/12/21 04:53 Acetaminophen (Tylenol) 650 mg PRN Q6HRS PRN PO MILD PAIN / TEMP > 100.3'F 02/12/21 10:00 02/17/21 20:30 Multi-Ingredient Ointment (Analgesic [place]) 1 abby PRN QID PRN TP MUSCLE PAIN 02/12/21 10:00 Al Hydroxide/Mg Hydroxide (Mylanta Plus Xs) 15 ml PRN AFTMEALHC PRN PO DYSPEPSIA 02/12/21 10:00 Magnesium Hydroxide (Milk Of Magnesia) 2,400 mg PRN QHS PRN PO CONSTIPATION 02/12/21 10:00 Acetaminophen (Tylenol) 650 mg PRN Q6HRS PRN PO MILD PAIN / TEMP > 100.3'F 02/12/21 12:15 Cancel Albuterol Sulfate (Ventolin) 2.5 mg PRN Q6HRS PRN INH SHORTNESS OF BREATH 02/12/21 12:15 Aspirin (Aspirin Enteric Coated) 81 mg DAILY PO 02/13/21 09:00 02/17/21 08:57 Atorvastatin Calcium (Lipitor) 20 mg QHS PO 02/12/21 21:00 02/17/21 20:26 Buspirone HCl (Buspar) 5 mg BID PO 02/12/21 21:00 02/17/21 20:27 Vitamin D (Vitamin D3) 50,000 unit QFR PO 02/15/21 16:00 02/15/21 17:32 Clopidogrel Bisulfate (Plavix) 75 mg DAILY PO 02/13/21 09:00 02/17/21 08:56 Divalproex Sodium (Depakote Sprinkles) 375 mg TID@0900,1300,1700 PO 02/12/21 13:00 02/13/21 15:22 DC 02/13/21 12:47 Ferrous Sulfate (Feosol) 325 mg BID PO 02/12/21 21:00 02/17/21 20:27 Furosemide (Lasix) 20 mg DAILY PO 02/13/21 09:00 02/17/21 08:55 Hydralazine HCl (Apresoline) 12.5 mg PRN Q6HRS PRN PO htn 02/12/21 12:15 Insulin Glargine (Lantus Syringe) 50 unit HS SQ 02/12/21 21:00 02/17/21 20:31 Lisinopril (Prinivil) 20 mg BID PO 02/12/21 21:00 02/17/21 20:29 Multivitamins/ Calcium (Thera-M Plus) 1 tab DAILY PO 02/13/21 09:00 02/17/21 08:57 Ondansetron HCl (Zofran Odt) 4 mg PRN Q6HRS PRN PO NAUSEA/VOMITING 02/12/21 12:15 Prazosin HCl (Minipress) 5 mg BID PO 02/12/21 21:00 02/17/21 20:26 Quetiapine Fumarate (SEROquel) 50 mg DAILY PO 02/13/21 09:00 02/14/21 18:03 DC 02/14/21 05:31 Sodium Chloride (Saline Mist Nasal) 1 abby BID NS 02/12/21 21:00 02/17/21 20:25 Carvedilol (Coreg) 25 mg BIDWMEALS PO 02/12/21 17:00 02/17/21 17:00 Diltiazem HCl (Cardizem) 60 mg TID PO 02/12/21 14:00 02/17/21 20:27 Galantamine Hydrobromide (Razadyne) 4 mg BID PO 02/12/21 21:00 02/17/21 20:28 Glucagon (Glucagen Kit) 1 mg PRN Q15MIN PRN IM LOW BLOOD SUGAR 02/12/21 13:15 Non-Formulary Medication (Insulin Aspart (Novolog)) 70-150 Give 0 un... TIDWMEALS SQ 02/12/21 17:00 02/13/21 17:11 DC Loperamide HCl (Imodium) 2 mg PRN Q2HRS PRN PO DIARRHEA 02/12/21 13:15 Non-Formulary Medication (Methyl Salicylate/ Menthol (Analgesic [place])) 1 abby PRN QID PRN TP MUSCLE PAIN 02/12/21 12:15 02/12/21 13:14 DC Artificial Tears (Refresh Classic) 2 drop PRN QID PRN OU DRY EYE 02/12/21 13:15 Linagliptin (Tradjenta) 5 mg DAILY16 PO 02/12/21 16:00 02/17/21 16:00 Olanzapine (ZyPREXA ZYDIS) 5 mg PRN Q2HR PRN PO PSYCHOSIS 02/12/21 12:30 02/17/21 20:29 Divalproex Sodium (Depakote Sprinkles) 375 mg 1300 PO 02/14/21 13:00 02/17/21 18:55 DC 02/17/21 12:24 Divalproex Sodium (Depakote Sprinkles) 500 mg 0900,1700 PO 02/13/21 17:00 02/17/21 18:55 DC 02/17/21 17:00 Insulin Human Lispro (HumaLOG) 0-9 UNITS TIDWMEALS SQ 02/14/21 08:00 02/17/21 17:12 Quetiapine Fumarate (SEROquel) 50 mg HS PO 02/15/21 21:00 02/17/21 20:28 Quetiapine Fumarate (SEROquel) 25 mg DAILY08 PO 02/15/21 08:00 02/17/21 08:57 Divalproex Sodium (Depakote Sprinkles) 500 mg TID PO 02/18/21 08:00 I have reviewed the current psychotropics carefully including drug interactions. Risk benefit ratio favors no change other than as noted in my dictated progress note. Diagnosis: Problems: (1) Dementia in Alzheimer's disease with depression (2) Dementia in Alzheimer's disease with delusions (3) Major neurocognitive disorder (4) Dementia in Alzheimer's disease with early onset with behavioral disturbance (5) Anxiety disorder (6) Dementia, vascular, with delusions (7) Dementia, vascular, with depression (8) Impulse control disorder DEAN GARDNER MD Feb 17, 2021 22:13
[2021-02-18 06:41] VITALS: BP 182/92
--- NOTE | 2021-02-18 06:49 | PDOC ---
Exam Note: [place] Note: This note is a late entry for 02/15/2021 covers elements not covered in my initial note. Subjective: The patient was seen individually in the evening of 02/15/2021 with Anabelle KWOK, discussed and reviewed the chart. He slept 3-3/4 hours previous night. The patient remains confused, somewhat delusional in the morning. At times he is making inappropriate comments to female nursing staff that he would like to take her out on a date. At times he seems more confused, believed he was at his mothers house, somewhat delusional. Review of Systems: Ambulation impaired in wheelchair. No CV, , pulmonary, eye, ENT system symptoms on review. Mental Status Exam: The patient is oriented to himself. I met with him in his room. Insight and judgment, recent and remote memory, attention and concentration, fund of knowledge is poor consistent with his diagnoses. Laboratory Data: Reviewed. Impression: Major neurocognitive disorder Alzheimer vascular with delusion, depression, behavioral disturbance. Anxiety disorder unspecified. Impulse control disorder unspecified. Plan: No change from initial note. Valproic acid level is 38 and we are adjusting the Depakote to reach therapeutic level with repeat labs on 02/17. Assessment: Vital Signs/I&O: Vital Signs Date Time Temp Pulse Resp B/P (MAP) Pulse Ox O2 Delivery O2 Flow Rate FiO2 02/18/21 06:41 97.2 71 18 182/92 (122) 96 02/15/21 15:37 Room Air I & O 02/17/21 02/17/21 02/18/21 15:00 23:00 07:00 Intake Total 600 ml 360 ml 120 ml Balance 600 ml 360 ml 120 ml Labs: Laboratory Tests Test 02/17/21 08:05 02/17/21 10:35 02/17/21 11:53 02/17/21 17:08 Glucose (Fingerstick) 70 mg/dL (70-99) 208 mg/dL (70-99) H 153 mg/dL (70-99) H White Blood Count 6.5 x10^3/uL (4.0-11.0) Red Blood Count 4.23 x10^6/uL (4.30-5.70) L Hemoglobin 12.6 g/dL (13.0-17.5) L Hematocrit 38.8 % (39.0-53.0) L Mean Corpuscular Volume 92 fL (79-100) Mean Corpuscular Hemoglobin 30 pg (25-35) Mean Corpuscular Hemoglobin Concent 33 g/dL (31-37) Red Cell Distribution Width 15.6 % (11.5-14.5) H Platelet Count 147 x10^3/uL (140-400) Neutrophils (%) (Auto) 57 % (31-73) Lymphocytes (%) (Auto) 30 % (24-48) Monocytes (%) (Auto) 10 % (0-9) H Eosinophils (%) (Auto) 3 % (0-3) Basophils (%) (Auto) 0 % (0-3) Neutrophils # (Auto) 3.7 x10^3uL (1.8-7.7) Lymphocytes # (Auto) 1.9 x10^3/uL (1.0-4.8) Monocytes # (Auto) 0.6 x10^3/uL (0.0-1.1) Eosinophils # (Auto) 0.2 x10^3/uL (0.0-0.7) Basophils # (Auto) 0.0 x10^3/uL (0.0-0.2) Sodium Level 142 mmol/L (136-145) Potassium Level 4.1 mmol/L (3.5-5.1) Chloride Level 108 mmol/L (98-107) H Carbon Dioxide Level 22 mmol/L (21-32) Anion Gap 12 (6-14) Blood Urea Nitrogen 28 mg/dL (8-26) H Creatinine 1.5 mg/dL (0.7-1.3) H Estimated GFR (Cockcroft-Gault) 55.8 BUN/Creatinine Ratio 19 (6-20) Glucose Level 163 mg/dL (70-99) H Calcium Level 8.8 mg/dL (8.5-10.1) Total Bilirubin 0.6 mg/dL (0.2-1.0) Aspartate Amino Transferase (AST) 36 U/L (15-37) Alanine Aminotransferase (ALT) 41 U/L (16-63) Alkaline Phosphatase 55 U/L (46-116) Total Protein 7.2 g/dL (6.4-8.2) Albumin 3.1 g/dL (3.4-5.0) L Albumin/Globulin Ratio 0.8 (1.0-1.7) L Valproic Acid Level 49 mcg/mL (50-100) L Valproic Acid Last Dose Date 02/16/2021 Valproic Acid Last Dose Time 1700 Test 02/17/21 19:35 Glucose (Fingerstick) 222 mg/dL (70-99) H Current Medications: Meds: Laboratory Tests Test 02/17/21 08:05 02/17/21 10:35 02/17/21 11:53 02/17/21 17:08 Glucose (Fingerstick) 70 mg/dL 208 mg/dL 153 mg/dL White Blood Count 6.5 x10^3/uL Red Blood Count 4.23 x10^6/uL Hemoglobin 12.6 g/dL Hematocrit 38.8 % Mean Corpuscular Volume 92 fL Mean Corpuscular Hemoglobin 30 pg Mean Corpuscular Hemoglobin Concent 33 g/dL Red Cell Distribution Width 15.6 % Platelet Count 147 x10^3/uL Neutrophils (%) (Auto) 57 % Lymphocytes (%) (Auto) 30 % Monocytes (%) (Auto) 10 % Eosinophils (%) (Auto) 3 % Basophils (%) (Auto) 0 % Neutrophils # (Auto) 3.7 x10^3uL Lymphocytes # (Auto) 1.9 x10^3/uL Monocytes # (Auto) 0.6 x10^3/uL Eosinophils # (Auto) 0.2 x10^3/uL Basophils # (Auto) 0.0 x10^3/uL Sodium Level 142 mmol/L Potassium Level 4.1 mmol/L Chloride Level 108 mmol/L Carbon Dioxide Level 22 mmol/L Anion Gap 12 Blood Urea Nitrogen 28 mg/dL Creatinine 1.5 mg/dL Estimated GFR (Cockcroft-Gault) 55.8 BUN/Creatinine Ratio 19 Glucose Level 163 mg/dL Calcium Level 8.8 mg/dL Total Bilirubin 0.6 mg/dL Aspartate Amino Transf (AST/SGOT) 36 U/L Alanine Aminotransferase (ALT/SGPT) 41 U/L Alkaline Phosphatase 55 U/L Total Protein 7.2 g/dL Albumin 3.1 g/dL Albumin/Globulin Ratio 0.8 Valproic Acid (Depakene) Level 49 mcg/mL Valproic Acid Last Dose Date 02/16/2021 Valproic Acid Last Dose Time 1700 Test 02/17/21 19:35 Glucose (Fingerstick) 222 mg/dL Current Medications Medications (Trade) Dose Ordered Sig/Romeo Route PRN Reason Start Time Stop Time Status Last Admin Dose Admin Hydralazine HCl (Apresoline) 20 mg 1X ONCE IV 02/12/21 02:30 02/12/21 02:24 DC Hydralazine HCl (Apresoline) 10 mg 1X ONCE IV 02/12/21 02:30 02/12/21 02:31 DC 02/12/21 02:35 Hydralazine HCl (Apresoline) 10 mg 1X ONCE IV 02/12/21 03:15 02/12/21 03:16 DC 02/12/21 03:21 Midazolam HCl (Versed) 2.5 mg 1X ONCE IV 02/12/21 05:00 02/12/21 05:01 DC 02/12/21 04:53 Acetaminophen (Tylenol) 650 mg PRN Q6HRS PRN PO MILD PAIN / TEMP > 100.3'F 02/12/21 10:00 02/17/21 20:30 Multi-Ingredient Ointment (Analgesic [place]) 1 abby PRN QID PRN TP MUSCLE PAIN 02/12/21 10:00 Al Hydroxide/Mg Hydroxide (Mylanta Plus Xs) 15 ml PRN AFTMEALHC PRN PO DYSPEPSIA 02/12/21 10:00 Magnesium Hydroxide (Milk Of Magnesia) 2,400 mg PRN QHS PRN PO CONSTIPATION 02/12/21 10:00 Acetaminophen (Tylenol) 650 mg PRN Q6HRS PRN PO MILD PAIN / TEMP > 100.3'F 02/12/21 12:15 Cancel Albuterol Sulfate (Ventolin) 2.5 mg PRN Q6HRS PRN INH SHORTNESS OF BREATH 02/12/21 12:15 Aspirin (Aspirin Enteric Coated) 81 mg DAILY PO 02/13/21 09:00 02/17/21 08:57 Atorvastatin Calcium (Lipitor) 20 mg QHS PO 02/12/21 21:00 02/17/21 20:26 Buspirone HCl (Buspar) 5 mg BID PO 02/12/21 21:00 02/17/21 20:27 Vitamin D (Vitamin D3) 50,000 unit QFR PO 02/15/21 16:00 4/23/21 17:32 Clopidogrel Bisulfate (Plavix) 75 mg DAILY PO 02/13/21 09:00 02/17/21 08:56 Divalproex Sodium (Depakote Sprinkles) 375 mg TID@0900,1300,1700 PO 02/12/21 13:00 02/13/21 15:22 DC 02/13/21 12:47 Ferrous Sulfate (Feosol) 325 mg BID PO 02/12/21 21:00 02/17/21 20:27 Furosemide (Lasix) 20 mg DAILY PO 02/13/21 09:00 02/17/21 08:55 Hydralazine HCl (Apresoline) 12.5 mg PRN Q6HRS PRN PO htn 02/12/21 12:15 Insulin Glargine (Lantus Syringe) 50 unit HS SQ 02/12/21 21:00 02/17/21 20:31 Lisinopril (Prinivil) 20 mg BID PO 02/12/21 21:00 02/17/21 20:29 Multivitamins/ Calcium (Thera-M Plus) 1 tab DAILY PO 02/13/21 09:00 02/17/21 08:57 Ondansetron HCl (Zofran Odt) 4 mg PRN Q6HRS PRN PO NAUSEA/VOMITING 02/12/21 12:15 Prazosin HCl (Minipress) 5 mg BID PO 02/12/21 21:00 02/17/21 20:26 Quetiapine Fumarate (SEROquel) 50 mg DAILY PO 02/13/21 09:00 02/14/21 18:03 DC 02/14/21 05:31 Sodium Chloride (Saline Mist Nasal) 1 abby BID NS 02/12/21 21:00 02/17/21 20:25 Carvedilol (Coreg) 25 mg BIDWMEALS PO 02/12/21 17:00 02/17/21 17:00 Diltiazem HCl (Cardizem) 60 mg TID PO 02/12/21 14:00 02/17/21 20:27 Galantamine Hydrobromide (Razadyne) 4 mg BID PO 02/12/21 21:00 02/17/21 20:28 Glucagon (Glucagen Kit) 1 mg PRN Q15MIN PRN IM LOW BLOOD SUGAR 02/12/21 13:15 Non-Formulary Medication (Insulin Aspart (Novolog)) 70-150 Give 0 un... TIDWMEALS SQ 02/12/21 17:00 02/13/21 17:11 DC Loperamide HCl (Imodium) 2 mg PRN Q2HRS PRN PO DIARRHEA 02/12/21 13:15 Non-Formulary Medication (Methyl Salicylate/ Menthol (Analgesic [place])) 1 abby PRN QID PRN TP MUSCLE PAIN 02/12/21 12:15 02/12/21 13:14 DC Artificial Tears (Refresh Classic) 2 drop PRN QID PRN OU DRY EYE 02/12/21 13:15 Linagliptin (Tradjenta) 5 mg DAILY16 PO 02/12/21 16:00 02/17/21 16:00 Olanzapine (ZyPREXA ZYDIS) 5 mg PRN Q2HR PRN PO PSYCHOSIS 02/12/21 12:30 02/18/21 02:45 Divalproex Sodium (Depakote Sprinkles) 375 mg 1300 PO 02/14/21 13:00 02/17/21 18:55 DC 02/17/21 12:24 Divalproex Sodium (Depakote Sprinkles) 500 mg 0900,1700 PO 02/13/21 17:00 02/17/21 18:55 DC 02/17/21 17:00 Insulin Human Lispro (HumaLOG) 0-9 UNITS TIDWMEALS SQ 02/14/21 08:00 02/17/21 17:12 Quetiapine Fumarate (SEROquel) 50 mg HS PO 02/15/21 21:00 02/17/21 20:28 Quetiapine Fumarate (SEROquel) 25 mg DAILY08 PO 02/15/21 08:00 02/17/21 08:57 Divalproex Sodium (Depakote Sprinkles) 500 mg TID PO 02/18/21 08:00 I have reviewed the current psychotropics carefully including drug interactions. Risk benefit ratio favors no change other than as noted in my dictated progress note. Diagnosis: Problems: (1) Dementia in Alzheimer's disease with depression (2) Dementia in Alzheimer's disease with delusions (3) Major neurocognitive disorder (4) Dementia in Alzheimer's disease with early onset with behavioral disturbance (5) Anxiety disorder (6) Dementia, vascular, with delusions (7) Dementia, vascular, with depression (8) Impulse control disorder DEAN GARDNER MD Feb 18, 2021 06:49
--- NOTE | 2021-02-18 07:46 | PDOC ---
Exam Note: [place] Note: This note is a late entry for 02/16/2021 covers elements not covered in my initial note. Subjective: The patient was seen individually in the evening of 02/16/2021 with Stella KWOK, discussed and reviewed the chart. He slept 5 hours previous night. The patient is compliant with medications, somewhat delusional at times, refusing to eat, if food was touched by any of the nursing staff. Platelets on 02/12/2021 was 81. We will repeat CBC morning of 02/17 for platelet counts and if they are still dropping we will have to consider change in Depakote. We may consider Trileptal as an option in mood stabilizer. Review of Systems: Ambulation impaired in wheelchair. No CV, , pulmonary, ey e, ENT system symptoms on review. Mental Status Exam: The patient is oriented to himself. Insight and judgment, recent and remote memory, attention and concentration, fund of knowledge is poor consistent with his diagnoses. Laboratory Data: Reviewed. Impression: Major neurocognitive disorder Alzheimer vascular with delusion, depression, behavioral disturbance. Anxiety disorder unspecified. Impulse control disorder unspecified. Plan: No change from initial note. I have carefully reviewed drug interactions and risk-benefit ratio. Assessment: Vital Signs/I&O: Vital Signs Date Time Temp Pulse Resp B/P (MAP) Pulse Ox O2 Delivery O2 Flow Rate FiO2 02/18/21 06:41 97.2 71 18 182/92 (122) 96 02/15/21 15:37 Room Air I & O 02/17/21 02/17/21 02/18/21 15:00 23:00 07:00 Intake Total 600 ml 360 ml 120 ml Balance 600 ml 360 ml 120 ml Labs: Laboratory Tests Test 02/17/21 08:05 02/17/21 10:35 02/17/21 11:53 02/17/21 17:08 Glucose (Fingerstick) 70 mg/dL (70-99) 208 mg/dL (70-99) H 153 mg/dL (70-99) H White Blood Count 6.5 x10^3/uL (4.0-11.0) Red Blood Count 4.23 x10^6/uL (4.30-5.70) L Hemoglobin 12.6 g/dL (13.0-17.5) L Hematocrit 38.8 % (39.0-53.0) L Mean Corpuscular Volume 92 fL (79-100) Mean Corpuscular Hemoglobin 30 pg (25-35) Mean Corpuscular Hemoglobin Concent 33 g/dL (31-37) Red Cell Distribution Width 15.6 % (11.5-14.5) H Platelet Count 147 x10^3/uL (140-400) Neutrophils (%) (Auto) 57 % (31-73) Lymphocytes (%) (Auto) 30 % (24-48) Monocytes (%) (Auto) 10 % (0-9) H Eosinophils (%) (Auto) 3 % (0-3) Basophils (%) (Auto) 0 % (0-3) Neutrophils # (Auto) 3.7 x10^3uL (1.8-7.7) Lymphocytes # (Auto) 1.9 x10^3/uL (1.0-4.8) Monocytes # (Auto) 0.6 x10^3/uL (0.0-1.1) Eosinophils # (Auto) 0.2 x10^3/uL (0.0-0.7) Basophils # (Auto) 0.0 x10^3/uL (0.0-0.2) Sodium Level 142 mmol/L (136-145) Potassium Level 4.1 mmol/L (3.5-5.1) Chloride Level 108 mmol/L (98-107) H Carbon Dioxide Level 22 mmol/L (21-32) Anion Gap 12 (6-14) Blood Urea Nitrogen 28 mg/dL (8-26) H Creatinine 1.5 mg/dL (0.7-1.3) H Estimated GFR (Cockcroft-Gault) 55.8 BUN/Creatinine Ratio 19 (6-20) Glucose Level 163 mg/dL (70-99) H Calcium Level 8.8 mg/dL (8.5-10.1) Total Bilirubin 0.6 mg/dL (0.2-1.0) Aspartate Amino Transferase (AST) 36 U/L (15-37) Alanine Aminotransferase (ALT) 41 U/L (16-63) Alkaline Phosphatase 55 U/L (46-116) Total Protein 7.2 g/dL (6.4-8.2) Albumin 3.1 g/dL (3.4-5.0) L Albumin/Globulin Ratio 0.8 (1.0-1.7) L Valproic Acid Level 49 mcg/mL (50-100) L Valproic Acid Last Dose Date 02/16/2021 Valproic Acid Last Dose Time 1700 Test 02/17/21 19:35 02/18/21 07:26 Glucose (Fingerstick) 222 mg/dL (70-99) H 95 mg/dL (70-99) Current Medications: Meds: Laboratory Tests Test 02/17/21 08:05 02/17/21 10:35 02/17/21 11:53 02/17/21 17:08 Glucose (Fingerstick) 70 mg/dL 208 mg/dL 153 mg/dL White Blood Count 6.5 x10^3/uL Red Blood Count 4.23 x10^6/uL Hemoglobin 12.6 g/dL Hematocrit 38.8 % Mean Corpuscular Volume 92 fL Mean Corpuscular Hemoglobin 30 pg Mean Corpuscular Hemoglobin Concent 33 g/dL Red Cell Distribution Width 15.6 % Platelet Count 147 x10^3/uL Neutrophils (%) (Auto) 57 % Lymphocytes (%) (Auto) 30 % Monocytes (%) (Auto) 10 % Eosinophils (%) (Auto) 3 % Basophils (%) (Auto) 0 % Neutrophils # (Auto) 3.7 x10^3uL Lymphocytes # (Auto) 1.9 x10^3/uL Monocytes # (Auto) 0.6 x10^3/uL Eosinophils # (Auto) 0.2 x10^3/uL Basophils # (Auto) 0.0 x10^3/uL Sodium Level 142 mmol/L Potassium Level 4.1 mmol/L Chloride Level 108 mmol/L Carbon Dioxide Level 22 mmol/L Anion Gap 12 Blood Urea Nitrogen 28 mg/dL Creatinine 1.5 mg/dL Estimated GFR (Cockcroft-Gault) 55.8 BUN/Creatinine Ratio 19 Glucose Level 163 mg/dL Calcium Level 8.8 mg/dL Total Bilirubin 0.6 mg/dL Aspartate Amino Transf (AST/SGOT) 36 U/L Alanine Aminotransferase (ALT/SGPT) 41 U/L Alkaline Phosphatase 55 U/L Total Protein 7.2 g/dL Albumin 3.1 g/dL Albumin/Globulin Ratio 0.8 Valproic Acid (Depakene) Level 49 mcg/mL Valproic Acid Last Dose Date 02/16/2021 Valproic Acid Last Dose Time 1700 Test 02/17/21 19:35 02/18/21 07:26 Glucose (Fingerstick) 222 mg/dL 95 mg/dL Current Medications Medications (Trade) Dose Ordered Sig/Romeo Route PRN Reason Start Time Stop Time Status Last Admin Dose Admin Hydralazine HCl (Apresoline) 20 mg 1X ONCE IV 02/12/21 02:30 02/12/21 02:24 DC Hydralazine HCl (Apresoline) 10 mg 1X ONCE IV 02/12/21 02:30 02/12/21 02:31 DC 02/12/21 02:35 Hydralazine HCl (Apresoline) 10 mg 1X ONCE IV 02/12/21 03:15 02/12/21 03:16 DC 02/12/21 03:21 Midazolam HCl (Versed) 2.5 mg 1X ONCE IV 02/12/21 05:00 02/12/21 05:01 DC 02/12/21 04:53 Acetaminophen (Tylenol) 650 mg PRN Q6HRS PRN PO MILD PAIN / TEMP > 100.3'F 02/12/21 10:00 02/17/21 20:30 Multi-Ingredient Ointment (Analgesic [place]) 1 abby PRN QID PRN TP MUSCLE PAIN 02/12/21 10:00 Al Hydroxide/Mg Hydroxide (Mylanta Plus Xs) 15 ml PRN AFTMEALHC PRN PO DYSPEPSIA 02/12/21 10:00 Magnesium Hydroxide (Milk Of Magnesia) 2,400 mg PRN QHS PRN PO CONSTIPATION 02/12/21 10:00 Acetaminophen (Tylenol) 650 mg PRN Q6HRS PRN PO MILD PAIN / TEMP > 100.3'F 02/12/21 12:15 Cancel Albuterol Sulfate (Ventolin) 2.5 mg PRN Q6HRS PRN INH SHORTNESS OF BREATH 02/12/21 12:15 Aspirin (Aspirin Enteric Coated) 81 mg DAILY PO 02/13/21 09:00 02/17/21 08:57 Atorvastatin Calcium (Lipitor) 20 mg QHS PO 02/12/21 21:00 02/17/21 20:26 Buspirone HCl (Buspar) 5 mg BID PO 02/12/21 21:00 02/17/21 20:27 Vitamin D (Vitamin D3) 50,000 unit QFR PO 02/15/21 16:00 02/15/21 17:32 Clopidogrel Bisulfate (Plavix) 75 mg DAILY PO 02/13/21 09:00 02/17/21 08:56 Divalproex Sodium (Depakote Sprinkles) 375 mg TID@0900,1300,1700 PO 02/12/21 13:00 02/13/21 15:22 DC 02/13/21 12:47 Ferrous Sulfate (Feosol) 325 mg BID PO 02/12/21 21:00 02/17/21 20:27 Furosemide (Lasix) 20 mg DAILY PO 02/13/21 09:00 02/17/21 08:55 Hydralazine HCl (Apresoline) 12.5 mg PRN Q6HRS PRN PO htn 02/12/21 12:15 Insulin Glargine (Lantus Syringe) 50 unit HS SQ 02/12/21 21:00 02/17/21 20:31 Lisinopril (Prinivil) 20 mg BID PO 02/12/21 21:00 02/17/21 20:29 Multivitamins/ Calcium (Thera-M Plus) 1 tab DAILY PO 02/13/21 09:00 02/17/21 08:57 Ondansetron HCl (Zofran Odt) 4 mg PRN Q6HRS PRN PO NAUSEA/VOMITING 02/12/21 12:15 Prazosin HCl (Minipress) 5 mg BID PO 02/12/21 21:00 02/17/21 20:26 Quetiapine Fumarate (SEROquel) 50 mg DAILY PO 02/13/21 09:00 02/14/21 18:03 DC 02/14/21 05:31 Sodium Chloride (Saline Mist Nasal) 1 abby BID NS 02/12/21 21:00 02/17/21 20:25 Carvedilol (Coreg) 25 mg BIDWMEALS PO 02/12/21 17:00 02/17/21 17:00 Diltiazem HCl (Cardizem) 60 mg TID PO 02/12/21 14:00 02/17/21 20:27 Galantamine Hydrobromide (Razadyne) 4 mg BID PO 02/12/21 21:00 02/17/21 20:28 Glucagon (Glucagen Kit) 1 mg PRN Q15MIN PRN IM LOW BLOOD SUGAR 02/12/21 13:15 Non-Formulary Medication (Insulin Aspart (Novolog)) 70-150 Give 0 un... TIDWMEALS SQ 02/12/21 17:00 02/13/21 17:11 DC Loperamide HCl (Imodium) 2 mg PRN Q2HRS PRN PO DIARRHEA 02/12/21 13:15 Non-Formulary Medication (Methyl Salicylate/ Menthol (Analgesic [place])) 1 abby PRN QID PRN TP MUSCLE PAIN 02/12/21 12:15 02/12/21 13:14 DC Artificial Tears (Refresh Classic) 2 drop PRN QID PRN OU DRY EYE 02/12/21 13:15 Linagliptin (Tradjenta) 5 mg DAILY16 PO 02/12/21 16:00 02/17/21 16:00 Olanzapine (ZyPREXA ZYDIS) 5 mg PRN Q2HR PRN PO PSYCHOSIS 02/12/21 12:30 02/18/21 02:45 Divalproex Sodium (Depakote Sprinkles) 375 mg 1300 PO 02/14/21 13:00 02/17/21 18:55 DC 02/17/21 12:24 Divalproex Sodium (Depakote Sprinkles) 500 mg 0900,1700 PO 02/13/21 17:00 02/17/21 18:55 DC 02/17/21 17:00 Insulin Human Lispro (HumaLOG) 0-9 UNITS TIDWMEALS SQ 02/14/21 08:00 02/17/21 17:12 Quetiapine Fumarate (SEROquel) 50 mg HS PO 02/15/21 21:00 02/17/21 20:28 Quetiapine Fumarate (SEROquel) 25 mg DAILY08 PO 02/15/21 08:00 02/17/21 08:57 Divalproex Sodium (Depakote Sprinkles) 500 mg TID PO 02/18/21 08:00 I have reviewed the current psychotropics carefully including drug interactions. Risk benefit ratio favors no change other than as noted in my dictated progress note. Diagnosis: Problems: (1) Dementia in Alzheimer's disease with depression (2) Dementia in Alzheimer's disease with delusions (3) Major neurocognitive disorder (4) Dementia in Alzheimer's disease with early onset with behavioral disturbance (5) Dementia, vascular, with delusions (6) Anxiety disorder (7) Dementia, vascular, with depression (8) Impulse control disorder DEAN GARDNER MD Feb 18, 2021 07:46
[2021-02-18] MEDS: INSULIN LISPRO 300 UNITS/3 ML VIAL. SQ SCH ×3 (07:47→17:00)
[2021-02-18] MEDS: DIVALPROEX 125 MG CAP.SPRINK PO SCH ×4 (08:04→22:06)
[2021-02-18] MEDS: QUEtiapine 25 MG TABLET. PO SCH (08:04)
[2021-02-18] MEDS: PRAZOSIN 5 MG CAPSULE. PO SCH ×2 (08:04→22:07)
[2021-02-18] MEDS: FERROUS SULFATE 325 MG TABLET. PO SCH ×2 (08:05→22:08)
[2021-02-18] MEDS: FUROSEMIDE 20 MG TABLET PO SCH (08:05)
[2021-02-18] MEDS: dilTIAZem HCL 30 MG TABLET PO SCH ×3 (08:05→22:08)
[2021-02-18] MEDS: CARVEDILOL 12.5 MG TABLET PO SCH ×2 (08:05→17:00)
[2021-02-18] MEDS: busPIRone 5 MG TABLET. PO SCH ×2 (08:06→22:08)
[2021-02-18] MEDS: MULTIVITAMIN with MINERAL TABLET. PO SCH (08:06)
[2021-02-18] MEDS: CLOPIDOGREL BISULFATE 75 MG TABLET PO SCH (08:06)
[2021-02-18] MEDS: ASPIRIN ENTERIC COATED 81 MG TABLET.DR. PO SCH (08:06)
[2021-02-18] MEDS: LISINOPRIL 10 MG TABLET PO SCH ×2 (08:06→22:08)
[2021-02-18] MEDS: GALANTAMINE 4 MG TABLET PO SCH ×2 (08:06→22:08)
[2021-02-18] MEDS: SODIUM CHLORIDE 0.65% NASAL SPRAY 45ML BOTTLE. NS SCH ×2 (08:07→21:00)
--- NOTE | 2021-02-18 08:19 | PDOC ---
Exam Note: [place] Note: This note is a late entry for 02/17/2021 covers elements not covered in my initial note. Subjective: The patient was seen individually in the evening of 02/17/2021 with Stella KWOK, discussed and reviewed the chart. He slept 9-1/2 hours previous night. The patient has made a couple of inappropriate comments to female nursing staff, somewhat paranoid at times, yelling is better. He was upset that one of the other demented patients was messing with his Broda chair. Platelet count was 81 couple of days back and today it was 147 and we will continue the Depakote then. Review of Systems: Ambulation impaired in wheelchair. No CV, , pulmonary, eye, ENT system symptoms on review. Mental Status Exam: The patient is oriented to himself. Insight and judgment, recent and remote memory, attention and concentration, fund of knowledge is poor consistent with his diagnoses. Laboratory Data: Reviewed. Impression: Major neurocognitive disorder Alzheimer vascular with delusion, depression, behavioral disturbance. Anxiety disorder unspecified. Impulse control disorder unspecified. Plan: No change from initial note. Valproic acid level is subtherapeutic. We will increase Depakote Sprinkle to 500 mg t.i.d. Check CBC, CMP, valproic acid level in 3 days. Continue rest unchanged. Assessment: Vital Signs/I&O: Vital Signs Date Time Temp Pulse Resp B/P (MAP) Pulse Ox O2 Delivery O2 Flow Rate FiO2 02/18/21 08:06 71 182/92 02/18/21 06:41 97.2 18 96 02/15/21 15:37 Room Air I & O 02/17/21 02/17/21 02/18/21 15:00 23:00 07:00 Intake Total 600 ml 360 ml 120 ml Balance 600 ml 360 ml 120 ml Labs: Laboratory Tests Test 02/17/21 10:35 02/17/21 11:53 02/17/21 17:08 02/17/21 19:35 White Blood Count 6.5 x10^3/uL (4.0-11.0) Red Blood Count 4.23 x10^6/uL (4.30-5.70) L Hemoglobin 12.6 g/dL (13.0-17.5) L Hematocrit 38.8 % (39.0-53.0) L Mean Corpuscular Volume 92 fL (79-100) Mean Corpuscular Hemoglobin 30 pg (25-35) Mean Corpuscular Hemoglobin Concent 33 g/dL (31-37) Red Cell Distribution Width 15.6 % (11.5-14.5) H Platelet Count 147 x10^3/uL (140-400) Neutrophils (%) (Auto) 57 % (31-73) Lymphocytes (%) (Auto) 30 % (24-48) Monocytes (%) (Auto) 10 % (0-9) H Eosinophils (%) (Auto) 3 % (0-3) Basophils (%) (Auto) 0 % (0-3) Neutrophils # (Auto) 3.7 x10^3uL (1.8-7.7) Lymphocytes # (Auto) 1.9 x10^3/uL (1.0-4.8) Monocytes # (Auto) 0.6 x10^3/uL (0.0-1.1) Eosinophils # (Auto) 0.2 x10^3/uL (0.0-0.7) Basophils # (Auto) 0.0 x10^3/uL (0.0-0.2) Sodium Level 142 mmol/L (136-145) Potassium Level 4.1 mmol/L (3.5-5.1) Chloride Level 108 mmol/L (98-107) H Carbon Dioxide Level 22 mmol/L (21-32) Anion Gap 12 (6-14) Blood Urea Nitrogen 28 mg/dL (8-26) H Creatinine 1.5 mg/dL (0.7-1.3) H Estimated GFR (Cockcroft-Gault) 55.8 BUN/Creatinine Ratio 19 (6-20) Glucose Level 163 mg/dL (70-99) H Calcium Level 8.8 mg/dL (8.5-10.1) Total Bilirubin 0.6 mg/dL (0.2-1.0) Aspartate Amino Transferase (AST) 36 U/L (15-37) Alanine Aminotransferase (ALT) 41 U/L (16-63) Alkaline Phosphatase 55 U/L (46-116) Total Protein 7.2 g/dL (6.4-8.2) Albumin 3.1 g/dL (3.4-5.0) L Albumin/Globulin Ratio 0.8 (1.0-1.7) L Valproic Acid Level 49 mcg/mL (50-100) L Valproic Acid Last Dose Date 02/16/2021 Valproic Acid Last Dose Time 1700 Glucose (Fingerstick) 208 mg/dL (70-99) H 153 mg/dL (70-99) H 222 mg/dL (70-99) H Test 02/18/21 07:26 Glucose (Fingerstick) 95 mg/dL (70-99) Current Medications: Meds: Laboratory Tests Test 02/17/21 10:35 02/17/21 11:53 02/17/21 17:08 02/17/21 19:35 White Blood Count 6.5 x10^3/uL Red Blood Count 4.23 x10^6/uL Hemoglobin 12.6 g/dL Hematocrit 38.8 % Mean Corpuscular Volume 92 fL Mean Corpuscular Hemoglobin 30 pg Mean Corpuscular Hemoglobin Concent 33 g/dL Red Cell Distribution Width 15.6 % Platelet Count 147 x10^3/uL Neutrophils (%) (Auto) 57 % Lymphocytes (%) (Auto) 30 % Monocytes (%) (Auto) 10 % Eosinophils (%) (Auto) 3 % Basophils (%) (Auto) 0 % Neutrophils # (Auto) 3.7 x10^3uL Lymphocytes # (Auto) 1.9 x10^3/uL Monocytes # (Auto) 0.6 x10^3/uL Eosinophils # (Auto) 0.2 x10^3/uL Basophils # (Auto) 0.0 x10^3/uL Sodium Level 142 mmol/L Potassium Level 4.1 mmol/L Chloride Level 108 mmol/L Carbon Dioxide Level 22 mmol/L Anion Gap 12 Blood Urea Nitrogen 28 mg/dL Creatinine 1.5 mg/dL Estimated GFR (Cockcroft-Gault) 55.8 BUN/Creatinine Ratio 19 Glucose Level 163 mg/dL Calcium Level 8.8 mg/dL Total Bilirubin 0.6 mg/dL Aspartate Amino Transf (AST/SGOT) 36 U/L Alanine Aminotransferase (ALT/SGPT) 41 U/L Alkaline Phosphatase 55 U/L Total Protein 7.2 g/dL Albumin 3.1 g/dL Albumin/Globulin Ratio 0.8 Valproic Acid (Depakene) Level 49 mcg/mL Valproic Acid Last Dose Date 02/16/2021 Valproic Acid Last Dose Time 1700 Glucose (Fingerstick) 208 mg/dL 153 mg/dL 222 mg/dL Test 02/18/21 07:26 Glucose (Fingerstick) 95 mg/dL Current Medications Medications (Trade) Dose Ordered Sig/Romeo Route PRN Reason Start Time Stop Time Status Last Admin Dose Admin Hydralazine HCl (Apresoline) 20 mg 1X ONCE IV 02/12/21 02:30 02/12/21 02:24 DC Hydralazine HCl (Apresoline) 10 mg 1X ONCE IV 02/12/21 02:30 02/12/21 02:31 DC 02/12/21 02:35 Hydralazine HCl (Apresoline) 10 mg 1X ONCE IV 02/12/21 03:15 02/12/21 03:16 DC 02/12/21 03:21 Midazolam HCl (Versed) 2.5 mg 1X ONCE IV 02/12/21 05:00 02/12/21 05:01 DC 02/12/21 04:53 Acetaminophen (Tylenol) 650 mg PRN Q6HRS PRN PO MILD PAIN / TEMP > 100.3'F 02/12/21 10:00 02/17/21 20:30 Multi-Ingredient Ointment (Analgesic [place]) 1 abby PRN QID PRN TP MUSCLE PAIN 02/12/21 10:00 Al Hydroxide/Mg Hydroxide (Mylanta Plus Xs) 15 ml PRN AFTMEALHC PRN PO DYSPEPSIA 02/12/21 10:00 Magnesium Hydroxide (Milk Of Magnesia) 2,400 mg PRN QHS PRN PO CONSTIPATION 02/12/21 10:00 Acetaminophen (Tylenol) 650 mg PRN Q6HRS PRN PO MILD PAIN / TEMP > 100.3'F 02/12/21 12:15 Cancel Albuterol Sulfate (Ventolin) 2.5 mg PRN Q6HRS PRN INH SHORTNESS OF BREATH 02/12/21 12:15 Aspirin (Aspirin Enteric Coated) 81 mg DAILY PO 02/13/21 09:00 02/18/21 08:06 Atorvastatin Calcium (Lipitor) 20 mg QHS PO 02/12/21 21:00 02/17/21 20:26 Buspirone HCl (Buspar) 5 mg BID PO 02/12/21 21:00 02/18/21 08:06 Vitamin D (Vitamin D3) 50,000 unit QFR PO 02/15/21 16:00 02/15/21 17:32 Clopidogrel Bisulfate (Plavix) 75 mg DAILY PO 02/13/21 09:00 02/18/21 08:06 Divalproex Sodium (Depakote Sprinkles) 375 mg TID@0900,1300,1700 PO 02/12/21 13:00 02/13/21 15:22 DC 02/13/21 12:47 Ferrous Sulfate (Feosol) 325 mg BID PO 02/12/21 21:00 02/18/21 08:05 Furosemide (Lasix) 20 mg DAILY PO 02/13/21 09:00 02/18/21 08:05 Hydralazine HCl (Apresoline) 12.5 mg PRN Q6HRS PRN PO htn 02/12/21 12:15 Insulin Glargine (Lantus Syringe) 50 unit HS SQ 02/12/21 21:00 02/17/21 20:31 Lisinopril (Prinivil) 20 mg BID PO 02/12/21 21:00 02/18/21 08:06 Multivitamins/ Calcium (Thera-M Plus) 1 tab DAILY PO 02/13/21 09:00 02/18/21 08:06 Ondansetron HCl (Zofran Odt) 4 mg PRN Q6HRS PRN PO NAUSEA/VOMITING 02/12/21 12:15 Prazosin HCl (Minipress) 5 mg BID PO 02/12/21 21:00 02/18/21 08:04 Quetiapine Fumarate (SEROquel) 50 mg DAILY PO 02/13/21 09:00 02/14/21 18:03 DC 02/14/21 05:31 Sodium Chloride (Saline Mist Nasal) 1 abby BID NS 02/12/21 21:00 02/18/21 08:07 Carvedilol (Coreg) 25 mg BIDWMEALS PO 02/12/21 17:00 02/18/21 08:05 Diltiazem HCl (Cardizem) 60 mg TID PO 02/12/21 14:00 02/18/21 08:05 Galantamine Hydrobromide (Razadyne) 4 mg BID PO 02/12/21 21:00 02/18/21 08:06 Glucagon (Glucagen Kit) 1 mg PRN Q15MIN PRN IM LOW BLOOD SUGAR 02/12/21 13:15 Non-Formulary Medication (Insulin Aspart (Novolog)) 70-150 Give 0 un... TIDWMEALS SQ 02/12/21 17:00 02/13/21 17:11 DC Loperamide HCl (Imodium) 2 mg PRN Q2HRS PRN PO DIARRHEA 02/12/21 13:15 Non-Formulary Medication (Methyl Salicylate/ Menthol (Analgesic [place])) 1 abby PRN QID PRN TP MUSCLE PAIN 02/12/21 12:15 02/12/21 13:14 DC Artificial Tears (Refresh Classic) 2 drop PRN QID PRN OU DRY EYE 02/12/21 13:15 Linagliptin (Tradjenta) 5 mg DAILY16 PO 02/12/21 16:00 02/17/21 16:00 Olanzapine (ZyPREXA ZYDIS) 5 mg PRN Q2HR PRN PO PSYCHOSIS 02/12/21 12:30 02/18/21 02:45 Divalproex Sodium (Depakote Sprinkles) 375 mg 1300 PO 02/14/21 13:00 02/17/21 18:55 DC 02/17/21 12:24 Divalproex Sodium (Depakote Sprinkles) 500 mg 0900,1700 PO 02/13/21 17:00 02/17/21 18:55 DC 02/17/21 17:00 Insulin Human Lispro (HumaLOG) 0-9 UNITS TIDWMEALS SQ 02/14/21 08:00 02/17/21 17:12 Quetiapine Fumarate (SEROquel) 50 mg HS PO 02/15/21 21:00 02/17/21 20:28 Quetiapine Fumarate (SEROquel) 25 mg DAILY08 PO 02/15/21 08:00 02/18/21 08:04 Divalproex Sodium (Depakote Sprinkles) 500 mg TID PO 02/18/21 08:00 02/18/21 08:04 Current Medications Medications (Trade) Dose Ordered Sig/Romeo Route PRN Reason Start Time Stop Time Status Last Admin Dose Admin Divalproex Sodium (Depakote Sprinkles) 500 mg TID PO 02/18/21 08:00 02/18/21 08:04 I have reviewed the current psychotropics carefully including drug interactions. Risk benefit ratio favors no change other than as noted in my dictated progress note. Diagnosis: Problems: (1) Dementia in Alzheimer's disease with depression (2) Dementia in Alzheimer's disease with delusions (3) Major neurocognitive disorder (4) Dementia in Alzheimer's disease with early onset with behavioral disturbance (5) Anxiety disorder (6) Dementia, vascular, with delusions (7) Dementia, vascular, with depression (8) Impulse control disorder DEAN GARDNER MD Feb 18, 2021 08:19
[2021-02-18 15:54] VITALS: BP 171/80
[2021-02-18] MEDS: LINAGLIPTIN 5 MG TABLET PO SCH (16:00)
--- NOTE | 2021-02-18 16:08 | TX PLAN ---
Interdisciplinary Tx Plan Admission Information Feb 12, 2021 at 08:00 Legal Status (on Admission): Voluntary DPOA/Guardian Name: Raffaele Hawk Contact Other Contact Name: [facility] Other Contact Verified Code Status: Full Code Allergies: Coded Allergies: No Known Drug Allergies (Unverified , 02/12/21) Diagnoses Primary Diagnosis: Major Neurocognitive D/O Reasons for Admission: Aggressive, Agitated, Confusion/Disoriented Problem in Patient's Words: He's getting more delusional Additional Admission Comments: According to the intake, pt is being aggressive towards staff, cursing, threatening peer, confused, angry and irritable Problems Active Problems: delusional agitated confused Inactive Problems: Medication compliant Pt Strengths/Limitations Ability for [place]: Poor Cognitive Functioning/Ability: Fair Communication Skills/Ability: Fair Financial Resources: Fair Insight/Judgement: Poor Intellectual Ability: Fair Physical Health: Poor Social Skills: Poor Stability in Family: Fair Stability in School/Work: Poor Verbal Skills: Fair Discharge Criteria Discharge Criteria: No need for close observ., Adequate arrangements @DC, Improved behavior, Improved mood/thought Preliminary Discharge Plan Preliminary DC Plan: Current Living Arrange. Special Precautions Fall Risk: Moderate Initial D/C Plan Will return to [facility] once stable. Identified Discharge Needs: Psychiatric follow-up Currently Utilized Resources Currently Utilized Resources/P: Primary Care Physician Referrals Community Resources: Psychiatric follow-up Identified Problems/Hx/Goals Objectives/Short-Term Goals Short Term Goals: Dec. Aggression, Dec. Outbursts, Improved Social Skills, Medication Stabilization, Promote Coping Skill Short Term Goals in Patient's: N/A Interventions/Frequency Staff Interventions/Frequency&: Psychiatrist to assess pt at least 3x per week for medication mgmt Social Work to assess pt at least 2x per week to identify barriers to care and finalize discharge planning. Nursing to assess medication mgmt, behavior modification and complete 15 minute checks daily. Encourage participation in group activities (if applicable) or 1:1 engagement based off activity dept goals. 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 Education: Last grade completed was high school (12th) Community Follow-up Primary Care physician as set up by pt facility Treatment Plan Explained Patient/Shoe Dyer had this treatment plan explained to him/her as indicated by the signature below and has been given the opportunity to ask questions and make suggestions: Date: Patient/Shoe Dyer Signature: Patient/Shoe Dyer Decline: No (Pt brother Raffaele is involved in pt care.) COLTON RILEY Feb 18, 2021 16:08
--- NOTE | 2021-02-18 22:03 | PDOC ---
Exam Note: [place] Note: Please also refer to the separate dictated note~for this date of service dictated separately.~Patient seen individually. Discussed the patient with Nursing staff reviewed the chart.~Reviewed interim history and current functioning. Reviewed vital signs,~Labs/ Radiology~and current medications noted below. Continue current treatment with the changes noted in the dictated addendum note Assessment: Vital Signs/I&O: Vital Signs Date Time Temp Pulse Resp B/P (MAP) Pulse Ox O2 Delivery O2 Flow Rate FiO2 02/18/21 17:00 75 171/80 02/18/21 15:54 97.4 18 97 Room Air I & O 02/17/21 02/17/21 02/18/21 15:00 23:00 07:00 Intake Total 600 ml 360 ml 120 ml Balance 600 ml 360 ml 120 ml Labs: Laboratory Tests Test 02/18/21 07:26 02/18/21 11:51 02/18/21 18:26 02/18/21 19:08 Glucose (Fingerstick) 95 mg/dL (70-99) 297 mg/dL (70-99) H 124 mg/dL (70-99) H 103 mg/dL (70-99) H Current Medications: Meds: Laboratory Tests Test 02/18/21 07:26 02/18/21 11:51 02/18/21 18:26 02/18/21 19:08 Glucose (Fingerstick) 95 mg/dL 297 mg/dL 124 mg/dL 103 mg/dL Current Medications Medications (Trade) Dose Ordered Sig/Romeo Route PRN Reason Start Time Stop Time Status Last Admin Dose Admin Hydralazine HCl (Apresoline) 20 mg 1X ONCE IV 02/12/21 02:30 02/12/21 02:24 DC Hydralazine HCl (Apresoline) 10 mg 1X ONCE IV 02/12/21 02:30 02/12/21 02:31 DC 02/12/21 02:35 Hydralazine HCl (Apresoline) 10 mg 1X ONCE IV 02/12/21 03:15 02/12/21 03:16 DC 02/12/21 03:21 Midazolam HCl (Versed) 2.5 mg 1X ONCE IV 02/12/21 05:00 02/12/21 05:01 DC 02/12/21 04:53 Acetaminophen (Tylenol) 650 mg PRN Q6HRS PRN PO MILD PAIN / TEMP > 100.3'F 02/12/21 10:00 02/17/21 20:30 Multi-Ingredient Ointment (Analgesic [place]) 1 abby PRN QID PRN TP MUSCLE PAIN 02/12/21 10:00 Al Hydroxide/Mg Hydroxide (Mylanta Plus Xs) 15 ml PRN AFTMEALHC PRN PO DYSPEPSIA 02/12/21 10:00 Magnesium Hydroxide (Milk Of Magnesia) 2,400 mg PRN QHS PRN PO CONSTIPATION 02/12/21 10:00 Acetaminophen (Tylenol) 650 mg PRN Q6HRS PRN PO MILD PAIN / TEMP > 100.3'F 02/12/21 12:15 Cancel Albuterol Sulfate (Ventolin) 2.5 mg PRN Q6HRS PRN INH SHORTNESS OF BREATH 02/12/21 12:15 Aspirin (Aspirin Enteric Coated) 81 mg DAILY PO 02/13/21 09:00 02/18/21 08:06 Atorvastatin Calcium (Lipitor) 20 mg QHS PO 02/12/21 21:00 02/17/21 20:26 Buspirone HCl (Buspar) 5 mg BID PO 02/12/21 21:00 02/18/21 08:06 Vitamin D (Vitamin D3) 50,000 unit QFR PO 02/15/21 16:00 02/15/21 17:32 Clopidogrel Bisulfate (Plavix) 75 mg DAILY PO 02/13/21 09:00 02/18/21 08:06 Divalproex Sodium (Depakote Sprinkles) 375 mg TID@0900,1300,1700 PO 02/12/21 13:00 02/13/21 15:22 DC 02/13/21 12:47 Ferrous Sulfate (Feosol) 325 mg BID PO 02/12/21 21:00 02/18/21 08:05 Furosemide (Lasix) 20 mg DAILY PO 02/13/21 09:00 02/18/21 08:05 Hydralazine HCl (Apresoline) 12.5 mg PRN Q6HRS PRN PO htn 02/12/21 12:15 Insulin Glargine (Lantus Syringe) 50 unit HS SQ 02/12/21 21:00 02/17/21 20:31 Lisinopril (Prinivil) 20 mg BID PO 02/12/21 21:00 02/18/21 08:06 Multivitamins/ Calcium (Thera-M Plus) 1 tab DAILY PO 02/13/21 09:00 02/18/21 08:06 Ondansetron HCl (Zofran Odt) 4 mg PRN Q6HRS PRN PO NAUSEA/VOMITING 02/12/21 12:15 Prazosin HCl (Minipress) 5 mg BID PO 02/12/21 21:00 02/18/21 08:04 Quetiapine Fumarate (SEROquel) 50 mg DAILY PO 02/13/21 09:00 02/14/21 18:03 DC 02/14/21 05:31 Sodium Chloride (Saline Mist Nasal) 1 abby BID NS 02/12/21 21:00 02/18/21 08:07 Carvedilol (Coreg) 25 mg BIDWMEALS PO 02/12/21 17:00 02/18/21 17:00 Diltiazem HCl (Cardizem) 60 mg TID PO 02/12/21 14:00 02/18/21 13:41 Galantamine Hydrobromide (Razadyne) 4 mg BID PO 02/12/21 21:00 02/18/21 08:06 Glucagon (Glucagen Kit) 1 mg PRN Q15MIN PRN IM LOW BLOOD SUGAR 02/12/21 13:15 Non-Formulary Medication (Insulin Aspart (Novolog)) 70-150 Give 0 un... TIDWMEALS SQ 02/12/21 17:00 02/13/21 17:11 DC Loperamide HCl (Imodium) 2 mg PRN Q2HRS PRN PO DIARRHEA 02/12/21 13:15 Non-Formulary Medication (Methyl Salicylate/ Menthol (Analgesic [place])) 1 abby PRN QID PRN TP MUSCLE PAIN 02/12/21 12:15 02/12/21 13:14 DC Artificial Tears (Refresh Classic) 2 drop PRN QID PRN OU DRY EYE 02/12/21 13:15 Linagliptin (Tradjenta) 5 mg DAILY16 PO 02/12/21 16:00 02/18/21 16:00 Olanzapine (ZyPREXA ZYDIS) 5 mg PRN Q2HR PRN PO PSYCHOSIS 02/12/21 12:30 02/18/21 02:45 Divalproex Sodium (Depakote Sprinkles) 375 mg 1300 PO 02/14/21 13:00 02/17/21 18:55 DC 02/17/21 12:24 Divalproex Sodium (Depakote Sprinkles) 500 mg 0900,1700 PO 02/13/21 17:00 02/17/21 18:55 DC 02/17/21 17:00 Insulin Human Lispro (HumaLOG) 0-9 UNITS TIDWMEALS SQ 02/14/21 08:00 02/18/21 12:20 Quetiapine Fumarate (SEROquel) 50 mg HS PO 02/15/21 21:00 02/17/21 20:28 Quetiapine Fumarate (SEROquel) 25 mg DAILY08 PO 02/15/21 08:00 02/18/21 08:04 Divalproex Sodium (Depakote Sprinkles) 500 mg TID PO 02/18/21 08:00 02/18/21 13:40 Current Medications Medications (Trade) Dose Ordered Sig/Romeo Route PRN Reason Start Time Stop Time Status Last Admin Dose Admin Divalproex Sodium (Depakote Sprinkles) 500 mg TID PO 02/18/21 08:00 02/18/21 13:40 I have reviewed the current psychotropics carefully including drug interactions. Risk benefit ratio favors no change other than as noted in my dictated progress note. Diagnosis: Problems: (1) Dementia in Alzheimer's disease with depression (2) Dementia in Alzheimer's disease with delusions (3) Major neurocognitive disorder (4) Dementia in Alzheimer's disease with early onset with behavioral disturbance (5) Anxiety disorder (6) Dementia, vascular, with delusions (7) Dementia, vascular, with depression (8) Impulse control disorder DEAN GARDNER MD Feb 18, 2021 22:02
[2021-02-18] MEDS: QUEtiapine 50 MG TABLET. PO SCH (22:08)
[2021-02-18] MEDS: ATORVASTATIN CALCIUM 20 MG TABLET PO SCH (22:09)
[2021-02-18] MEDS: INSULIN GLARGINE SYRINGE. SQ SCH (22:12)
[2021-02-18] MEDS: ACETAMINOPHEN 325 MG TABLET PO PRN (22:22)
[2021-02-19 06:40] VITALS: BP 172/89
[2021-02-19] MEDS: INSULIN LISPRO 300 UNITS/3 ML VIAL. SQ SCH ×3 (08:00→16:54)
[2021-02-19] MEDS: dilTIAZem HCL 30 MG TABLET PO SCH ×3 (08:47→20:29)
[2021-02-19] MEDS: GALANTAMINE 4 MG TABLET PO SCH ×2 (08:47→20:28)
[2021-02-19] MEDS: PRAZOSIN 5 MG CAPSULE. PO SCH ×2 (08:47→20:28)
[2021-02-19] MEDS: CARVEDILOL 12.5 MG TABLET PO SCH ×2 (08:47→17:22)
[2021-02-19] MEDS: QUEtiapine 25 MG TABLET. PO SCH (08:47)
[2021-02-19] MEDS: MULTIVITAMIN with MINERAL TABLET. PO SCH (08:48)
[2021-02-19] MEDS: FUROSEMIDE 20 MG TABLET PO SCH (08:48)
[2021-02-19] MEDS: SODIUM CHLORIDE 0.65% NASAL SPRAY 45ML BOTTLE. NS SCH ×2 (08:48→20:27)
[2021-02-19] MEDS: DIVALPROEX 125 MG CAP.SPRINK PO SCH ×3 (08:48→20:28)
[2021-02-19] MEDS: ASPIRIN ENTERIC COATED 81 MG TABLET.DR. PO SCH (08:48)
[2021-02-19] MEDS: LISINOPRIL 10 MG TABLET PO SCH ×2 (08:48→20:28)
[2021-02-19] MEDS: CLOPIDOGREL BISULFATE 75 MG TABLET PO SCH (08:48)
[2021-02-19] MEDS: FERROUS SULFATE 325 MG TABLET. PO SCH ×2 (08:48→20:28)
[2021-02-19] MEDS: busPIRone 5 MG TABLET. PO SCH ×2 (08:48→20:28)
[2021-02-19 16:53] VITALS: BP 154/73
[2021-02-19] MEDS: LINAGLIPTIN 5 MG TABLET PO SCH (17:22)
[2021-02-19 19:39] VITALS: BP 164/75
[2021-02-19] MEDS: QUEtiapine 50 MG TABLET. PO SCH (20:28)
[2021-02-19] MEDS: ATORVASTATIN CALCIUM 20 MG TABLET PO SCH (20:28)
[2021-02-19] MEDS: INSULIN GLARGINE SYRINGE. SQ SCH (20:30)
--- NOTE | 2021-02-19 21:58 | PDOC ---
Exam Note: [place] Note: Please also refer to the separate dictated note~for this date of service dictated separately.~Patient seen individually. Discussed the patient with Nursing staff reviewed the chart.~Reviewed interim history and current functioning. Reviewed vital signs,~Labs/ Radiology~and current medications noted below. Continue current treatment with the changes noted in the dictated addendum note Assessment: Vital Signs/I&O: Vital Signs Date Time Temp Pulse Resp B/P (MAP) Pulse Ox O2 Delivery O2 Flow Rate FiO2 02/19/21 20:29 65 164/75 02/19/21 19:39 98.1 20 96 Room Air I & O 02/18/21 02/18/21 02/19/21 15:00 23:00 07:00 Intake Total 720 ml 120 ml Balance 720 ml 120 ml Labs: Laboratory Tests Test 02/19/21 07:40 02/19/21 11:51 02/19/21 16:50 02/19/21 19:02 Glucose (Fingerstick) 118 mg/dL (70-99) H 171 mg/dL (70-99) H 148 mg/dL (70-99) H 225 mg/dL (70-99) H Current Medications: Meds: Laboratory Tests Test 02/19/21 07:40 02/19/21 11:51 02/19/21 16:50 02/19/21 19:02 Glucose (Fingerstick) 118 mg/dL 171 mg/dL 148 mg/dL 225 mg/dL Current Medications Medications (Trade) Dose Ordered Sig/Romeo Route PRN Reason Start Time Stop Time Status Last Admin Dose Admin Hydralazine HCl (Apresoline) 20 mg 1X ONCE IV 02/12/21 02:30 02/12/21 02:24 DC Hydralazine HCl (Apresoline) 10 mg 1X ONCE IV 02/12/21 02:30 02/12/21 02:31 DC 02/12/21 02:35 Hydralazine HCl (Apresoline) 10 mg 1X ONCE IV 02/12/21 03:15 02/12/21 03:16 DC 02/12/21 03:21 Midazolam HCl (Versed) 2.5 mg 1X ONCE IV 02/12/21 05:00 02/12/21 05:01 DC 02/12/21 04:53 Acetaminophen (Tylenol) 650 mg PRN Q6HRS PRN PO MILD PAIN / TEMP > 100.3'F 02/12/21 10:00 02/18/21 22:22 Multi-Ingredient Ointment (Analgesic [place]) 1 abby PRN QID PRN TP MUSCLE PAIN 02/12/21 10:00 Al Hydroxide/Mg Hydroxide (Mylanta Plus Xs) 15 ml PRN AFTMEALHC PRN PO DYSPEPSIA 02/12/21 10:00 Magnesium Hydroxide (Milk Of Magnesia) 2,400 mg PRN QHS PRN PO CONSTIPATION 02/12/21 10:00 Acetaminophen (Tylenol) 650 mg PRN Q6HRS PRN PO MILD PAIN / TEMP > 100.3'F 02/12/21 12:15 Cancel Albuterol Sulfate (Ventolin) 2.5 mg PRN Q6HRS PRN INH SHORTNESS OF BREATH 02/12/21 12:15 Aspirin (Aspirin Enteric Coated) 81 mg DAILY PO 02/13/21 09:00 02/19/21 08:48 Atorvastatin Calcium (Lipitor) 20 mg QHS PO 02/12/21 21:00 02/19/21 20:28 Buspirone HCl (Buspar) 5 mg BID PO 02/12/21 21:00 02/19/21 20:28 Vitamin D (Vitamin D3) 50,000 unit QFR PO 02/15/21 16:00 02/15/21 17:32 Clopidogrel Bisulfate (Plavix) 75 mg DAILY PO 02/13/21 09:00 02/19/21 08:48 Divalproex Sodium (Depakote Sprinkles) 375 mg TID@0900,1300,1700 PO 02/12/21 13:00 02/13/21 15:22 DC 02/13/21 12:47 Ferrous Sulfate (Feosol) 325 mg BID PO 02/12/21 21:00 02/19/21 20:28 Furosemide (Lasix) 20 mg DAILY PO 02/13/21 09:00 02/19/21 08:48 Hydralazine HCl (Apresoline) 12.5 mg PRN Q6HRS PRN PO htn 02/12/21 12:15 Insulin Glargine (Lantus Syringe) 50 unit HS SQ 02/12/21 21:00 02/19/21 20:30 Lisinopril (Prinivil) 20 mg BID PO 02/12/21 21:00 02/19/21 20:28 Multivitamins/ Calcium (Thera-M Plus) 1 tab DAILY PO 02/13/21 09:00 02/19/21 08:48 Ondansetron HCl (Zofran Odt) 4 mg PRN Q6HRS PRN PO NAUSEA/VOMITING 02/12/21 12:15 Prazosin HCl (Minipress) 5 mg BID PO 02/12/21 21:00 02/19/21 20:28 Quetiapine Fumarate (SEROquel) 50 mg DAILY PO 02/13/21 09:00 02/14/21 18:03 DC 02/14/21 05:31 Sodium Chloride (Saline Mist Nasal) 1 abby BID NS 02/12/21 21:00 02/19/21 20:27 Carvedilol (Coreg) 25 mg BIDWMEALS PO 02/12/21 17:00 02/19/21 17:22 Diltiazem HCl (Cardizem) 60 mg TID PO 02/12/21 14:00 02/19/21 20:29 Galantamine Hydrobromide (Razadyne) 4 mg BID PO 02/12/21 21:00 02/19/21 20:28 Glucagon (Glucagen Kit) 1 mg PRN Q15MIN PRN IM LOW BLOOD SUGAR 02/12/21 13:15 Non-Formulary Medication (Insulin Aspart (Novolog)) 70-150 Give 0 un... TIDWMEALS SQ 02/12/21 17:00 02/13/21 17:11 DC Loperamide HCl (Imodium) 2 mg PRN Q2HRS PRN PO DIARRHEA 02/12/21 13:15 Non-Formulary Medication (Methyl Salicylate/ Menthol (Analgesic [place])) 1 abby PRN QID PRN TP MUSCLE PAIN 02/12/21 12:15 02/12/21 13:14 DC Artificial Tears (Refresh Classic) 2 drop PRN QID PRN OU DRY EYE 02/12/21 13:15 Linagliptin (Tradjenta) 5 mg DAILY16 PO 02/12/21 16:00 02/19/21 17:22 Olanzapine (ZyPREXA ZYDIS) 5 mg PRN Q2HR PRN PO PSYCHOSIS 02/12/21 12:30 02/19/21 14:46 Divalproex Sodium (Depakote Sprinkles) 375 mg 1300 PO 02/14/21 13:00 02/17/21 18:55 DC 02/17/21 12:24 Divalproex Sodium (Depakote Sprinkles) 500 mg 0900,1700 PO 02/13/21 17:00 02/17/21 18:55 DC 02/17/21 17:00 Insulin Human Lispro (HumaLOG) 0-9 UNITS TIDWMEALS SQ 02/14/21 08:00 02/19/21 12:36 Quetiapine Fumarate (SEROquel) 50 mg HS PO 02/15/21 21:00 02/19/21 20:28 Quetiapine Fumarate (SEROquel) 25 mg DAILY08 PO 02/15/21 08:00 02/19/21 17:48 DC 02/19/21 08:47 Divalproex Sodium (Depakote Sprinkles) 500 mg TID PO 02/18/21 08:00 02/19/21 20:28 Quetiapine Fumarate (SEROquel) 25 mg 0900,1300 PO 02/20/21 09:00 I have reviewed the current psychotropics carefully including drug interactions. Risk benefit ratio favors no change other than as noted in my dictated progress note. Diagnosis: Problems: (1) Dementia in Alzheimer's disease with depression (2) Dementia in Alzheimer's disease with delusions (3) Major neurocognitive disorder (4) Dementia in Alzheimer's disease with early onset with behavioral disturbance (5) Anxiety disorder (6) Dementia, vascular, with delusions (7) Dementia, vascular, with depression (8) Impulse control disorder DEAN GARDNER MD Feb 19, 2021 21:58
[2021-02-20 05:57] VITALS: BP 150/84
--- NOTE | 2021-02-20 06:57 | PDOC ---
Exam Note: [place] Note: This note is a late entry for 02/18/2021 covers elements not covered in my initial note. Subjective: The patient was reviewed in the morning of 02/18/2021 for a treatment team meeting with Karen Jo, Hamida Spain and Morena (social worker assistant), Vira, activity therapy and Rayna KWOK, discussed and reviewed the chart. He slept 3-3/4 hours previous night. The patient has been somewhat delusional, paranoid more so in the evening, talking about bodies, being in the basement, that he has got his car and that he needs to drive. Review of Systems: Ambulation impaired in wheelchair. No CV, , pulmonary, eye, ENT system symptoms on review. Mental Status Exam: The patient is oriented to himself. Insight and judgment, recent and remote memory, attention and concentration, fund of knowledge is poor consistent with his diagnoses. Laboratory Data: Reviewed. Impression: Major neurocognitive disorder Alzheimer vascular with delusion, depression, behavioral disturbance. Anxiety disorder unspecified. Impulse control disorder unspecified. Plan: No change from initial note. Assessment: Vital Signs/I&O: Vital Signs Date Time Temp Pulse Resp B/P (MAP) Pulse Ox O2 Delivery O2 Flow Rate FiO2 02/20/21 05:57 98.2 76 20 150/84 (106) 95 Room Air I & O 02/19/21 02/19/21 02/20/21 15:00 23:00 07:00 Intake Total 360 ml 120 ml 120 ml Balance 360 ml 120 ml 120 ml Labs: Laboratory Tests Test 02/19/21 07:40 02/19/21 11:51 02/19/21 16:50 02/19/21 19:02 Glucose (Fingerstick) 118 mg/dL (70-99) H 171 mg/dL (70-99) H 148 mg/dL (70-99) H 225 mg/dL (70-99) H Current Medications: Meds: Laboratory Tests Test 02/19/21 07:40 02/19/21 11:51 02/19/21 16:50 02/19/21 19:02 Glucose (Fingerstick) 118 mg/dL 171 mg/dL 148 mg/dL 225 mg/dL Current Medications Medications (Trade) Dose Ordered Sig/Romeo Route PRN Reason Start Time Stop Time Status Last Admin Dose Admin Hydralazine HCl (Apresoline) 20 mg 1X ONCE IV 02/12/21 02:30 02/12/21 02:24 DC Hydralazine HCl (Apresoline) 10 mg 1X ONCE IV 02/12/21 02:30 02/12/21 02:31 DC 02/12/21 02:35 Hydralazine HCl (Apresoline) 10 mg 1X ONCE IV 02/12/21 03:15 02/12/21 03:16 DC 02/12/21 03:21 Midazolam HCl (Versed) 2.5 mg 1X ONCE IV 02/12/21 05:00 02/12/21 05:01 DC 02/12/21 04:53 Acetaminophen (Tylenol) 650 mg PRN Q6HRS PRN PO MILD PAIN / TEMP > 100.3'F 02/12/21 10:00 02/18/21 22:22 Multi-Ingredient Ointment (Analgesic [place]) 1 abby PRN QID PRN TP MUSCLE PAIN 02/12/21 10:00 Al Hydroxide/Mg Hydroxide (Mylanta Plus Xs) 15 ml PRN AFTMEALHC PRN PO DYSPEPSIA 02/12/21 10:00 Magnesium Hydroxide (Milk Of Magnesia) 2,400 mg PRN QHS PRN PO CONSTIPATION 02/12/21 10:00 Acetaminophen (Tylenol) 650 mg PRN Q6HRS PRN PO MILD PAIN / TEMP > 100.3'F 02/12/21 12:15 Cancel Albuterol Sulfate (Ventolin) 2.5 mg PRN Q6HRS PRN INH SHORTNESS OF BREATH 02/12/21 12:15 Aspirin (Aspirin Enteric Coated) 81 mg DAILY PO 02/13/21 09:00 02/19/21 08:48 Atorvastatin Calcium (Lipitor) 20 mg QHS PO 02/12/21 21:00 02/19/21 20:28 Buspirone HCl (Buspar) 5 mg BID PO 02/12/21 21:00 02/19/21 20:28 Vitamin D (Vitamin D3) 50,000 unit QFR PO 02/15/21 16:00 02/15/21 17:32 Clopidogrel Bisulfate (Plavix) 75 mg DAILY PO 02/13/21 09:00 02/19/21 08:48 Divalproex Sodium (Depakote Sprinkles) 375 mg TID@0900,1300,1700 PO 02/12/21 13:00 02/13/21 15:22 DC 02/13/21 12:47 Ferrous Sulfate (Feosol) 325 mg BID PO 02/12/21 21:00 02/19/21 20:28 Furosemide (Lasix) 20 mg DAILY PO 02/13/21 09:00 02/19/21 08:48 Hydralazine HCl (Apresoline) 12.5 mg PRN Q6HRS PRN PO htn 02/12/21 12:15 Insulin Glargine (Lantus Syringe) 50 unit HS SQ 02/12/21 21:00 02/19/21 20:30 Lisinopril (Prinivil) 20 mg BID PO 02/12/21 21:00 02/19/21 20:28 Multivitamins/ Calcium (Thera-M Plus) 1 tab DAILY PO 02/13/21 09:00 02/19/21 08:48 Ondansetron HCl (Zofran Odt) 4 mg PRN Q6HRS PRN PO NAUSEA/VOMITING 02/12/21 12:15 Prazosin HCl (Minipress) 5 mg BID PO 02/12/21 21:00 02/19/21 20:28 Quetiapine Fumarate (SEROquel) 50 mg DAILY PO 02/13/21 09:00 02/14/21 18:03 DC 02/14/21 05:31 Sodium Chloride (Saline Mist Nasal) 1 abby BID NS 02/12/21 21:00 02/19/21 20:27 Carvedilol (Coreg) 25 mg BIDWMEALS PO 02/12/21 17:00 02/19/21 17:22 Diltiazem HCl (Cardizem) 60 mg TID PO 02/12/21 14:00 02/19/21 20:29 Galantamine Hydrobromide (Razadyne) 4 mg BID PO 02/12/21 21:00 02/19/21 20:28 Glucagon (Glucagen Kit) 1 mg PRN Q15MIN PRN IM LOW BLOOD SUGAR 02/12/21 13:15 Non-Formulary Medication (Insulin Aspart (Novolog)) 70-150 Give 0 un... TIDWMEALS SQ 02/12/21 17:00 02/13/21 17:11 DC Loperamide HCl (Imodium) 2 mg PRN Q2HRS PRN PO DIARRHEA 02/12/21 13:15 Non-Formulary Medication (Methyl Salicylate/ Menthol (Analgesic [place])) 1 abby PRN QID PRN TP MUSCLE PAIN 02/12/21 12:15 02/12/21 13:14 DC Artificial Tears (Refresh Classic) 2 drop PRN QID PRN OU DRY EYE 02/12/21 13:15 Linagliptin (Tradjenta) 5 mg DAILY16 PO 02/12/21 16:00 02/19/21 17:22 Olanzapine (ZyPREXA ZYDIS) 5 mg PRN Q2HR PRN PO PSYCHOSIS 02/12/21 12:30 02/20/21 01:31 Divalproex Sodium (Depakote Sprinkles) 375 mg 1300 PO 02/14/21 13:00 02/17/21 18:55 DC 02/17/21 12:24 Divalproex Sodium (Depakote Sprinkles) 500 mg 0900,1700 PO 02/13/21 17:00 02/17/21 18:55 DC 02/17/21 17:00 Insulin Human Lispro (HumaLOG) 0-9 UNITS TIDWMEALS SQ 02/14/21 08:00 02/19/21 12:36 Quetiapine Fumarate (SEROquel) 50 mg HS PO 02/15/21 21:00 02/19/21 20:28 Quetiapine Fumarate (SEROquel) 25 mg DAILY08 PO 02/15/21 08:00 02/19/21 17:48 DC 02/19/21 08:47 Divalproex Sodium (Depakote Sprinkles) 500 mg TID PO 02/18/21 08:00 02/19/21 20:28 Quetiapine Fumarate (SEROquel) 25 mg 0900,1300 PO 02/20/21 09:00 I have reviewed the current psychotropics carefully including drug interactions. Risk benefit ratio favors no change other than as noted in my dictated progress note. Diagnosis: Problems: (1) Dementia in Alzheimer's disease with depression (2) Dementia in Alzheimer's disease with delusions (3) Major neurocognitive disorder (4) Dementia in Alzheimer's disease with early onset with behavioral disturbance (5) Anxiety disorder (6) Dementia, vascular, with delusions (7) Dementia, vascular, with depression (8) Impulse control disorder DEAN GARDNER MD Feb 20, 2021 06:57
--- NOTE | 2021-02-20 07:32 | PDOC ---
Exam Note: [place] Note: This note is a late entry for 02/19/2021 covers elements not covered in my initial note. Subjective: The patient was seen individually in the evening of 02/19/2021 with Anabelle KWOK, discussed and reviewed the chart. He slept 5 hours previous night. The patient is quite delusional last night, looking for an engine hoist to work on his car engine. This morning he did better. In the evening he was screaming and hollering, paranoid, suspicious, labile in his mood, that he was being robbed. He received Zyprexa p.r.n., 2.45 p.m., at 4.30 he was crying tearful, restless paranoid. Review of Systems: Ambulation impaired in wheelchair. No CV, , pulmonary, eye, ENT system symptoms on review. Mental Status Exam: The patient is oriented to himself. Insight and judgment, recent and remote memory, attention and concentration, fund of knowledge is poor consistent with his diagnoses. Laboratory Data: Reviewed. Impression: Major neurocognitive disorder Alzheimer vascular with delusion, depression, behavioral disturbance. Anxiety disorder unspecified. Impulse control disorder unspecified. Plan: No change from initial note. Add dosage of Seroquel 25 mg 1 p.m. Rest unchanged. Assessment: Vital Signs/I&O: Vital Signs Date Time Temp Pulse Resp B/P (MAP) Pulse Ox O2 Delivery O2 Flow Rate FiO2 02/20/21 05:57 98.2 76 20 150/84 (106) 95 Room Air I & O 02/19/21 02/19/21 02/20/21 15:00 23:00 07:00 Intake Total 360 ml 120 ml 120 ml Balance 360 ml 120 ml 120 ml Labs: Laboratory Tests Test 02/19/21 07:40 02/19/21 11:51 02/19/21 16:50 02/19/21 19:02 Glucose (Fingerstick) 118 mg/dL (70-99) H 171 mg/dL (70-99) H 148 mg/dL (70-99) H 225 mg/dL (70-99) H Current Medications: Meds: Laboratory Tests Test 02/19/21 07:40 02/19/21 11:51 02/19/21 16:50 02/19/21 19:02 Glucose (Fingerstick) 118 mg/dL 171 mg/dL 148 mg/dL 225 mg/dL Current Medications Medications (Trade) Dose Ordered Sig/Romeo Route PRN Reason Start Time Stop Time Status Last Admin Dose Admin Hydralazine HCl (Apresoline) 20 mg 1X ONCE IV 02/12/21 02:30 02/12/21 02:24 DC Hydralazine HCl (Apresoline) 10 mg 1X ONCE IV 02/12/21 02:30 02/12/21 02:31 DC 02/12/21 02:35 Hydralazine HCl (Apresoline) 10 mg 1X ONCE IV 02/12/21 03:15 02/12/21 03:16 DC 02/12/21 03:21 Midazolam HCl (Versed) 2.5 mg 1X ONCE IV 02/12/21 05:00 02/12/21 05:01 DC 02/12/21 04:53 Acetaminophen (Tylenol) 650 mg PRN Q6HRS PRN PO MILD PAIN / TEMP > 100.3'F 02/12/21 10:00 02/18/21 22:22 Multi-Ingredient Ointment (Analgesic [place]) 1 abby PRN QID PRN TP MUSCLE PAIN 02/12/21 10:00 Al Hydroxide/Mg Hydroxide (Mylanta Plus Xs) 15 ml PRN AFTMEALHC PRN PO DYSPEPSIA 02/12/21 10:00 Magnesium Hydroxide (Milk Of Magnesia) 2,400 mg PRN QHS PRN PO CONSTIPATION 02/12/21 10:00 Acetaminophen (Tylenol) 650 mg PRN Q6HRS PRN PO MILD PAIN / TEMP > 100.3'F 02/12/21 12:15 Cancel Albuterol Sulfate (Ventolin) 2.5 mg PRN Q6HRS PRN INH SHORTNESS OF BREATH 02/12/21 12:15 Aspirin (Aspirin Enteric Coated) 81 mg DAILY PO 02/13/21 09:00 02/19/21 08:48 Atorvastatin Calcium (Lipitor) 20 mg QHS PO 02/12/21 21:00 02/19/21 20:28 Buspirone HCl (Buspar) 5 mg BID PO 02/12/21 21:00 02/19/21 20:28 Vitamin D (Vitamin D3) 50,000 unit QFR PO 02/15/21 16:00 02/15/21 17:32 Clopidogrel Bisulfate (Plavix) 75 mg DAILY PO 02/13/21 09:00 02/19/21 08:48 Divalproex Sodium (Depakote Sprinkles) 375 mg TID@0900,1300,1700 PO 02/12/21 13:00 02/13/21 15:22 DC 02/13/21 12:47 Ferrous Sulfate (Feosol) 325 mg BID PO 02/12/21 21:00 02/19/21 20:28 Furosemide (Lasix) 20 mg DAILY PO 02/13/21 09:00 02/19/21 08:48 Hydralazine HCl (Apresoline) 12.5 mg PRN Q6HRS PRN PO htn 02/12/21 12:15 Insulin Glargine (Lantus Syringe) 50 unit HS SQ 02/12/21 21:00 02/19/21 20:30 Lisinopril (Prinivil) 20 mg BID PO 02/12/21 21:00 02/19/21 20:28 Multivitamins/ Calcium (Thera-M Plus) 1 tab DAILY PO 02/13/21 09:00 02/19/21 08:48 Ondansetron HCl (Zofran Odt) 4 mg PRN Q6HRS PRN PO NAUSEA/VOMITING 02/12/21 12:15 Prazosin HCl (Minipress) 5 mg BID PO 02/12/21 21:00 02/19/21 20:28 Quetiapine Fumarate (SEROquel) 50 mg DAILY PO 02/13/21 09:00 02/14/21 18:03 DC 02/14/21 05:31 Sodium Chloride (Saline Mist Nasal) 1 abby BID NS 02/12/21 21:00 02/19/21 20:27 Carvedilol (Coreg) 25 mg BIDWMEALS PO 02/12/21 17:00 02/19/21 17:22 Diltiazem HCl (Cardizem) 60 mg TID PO 02/12/21 14:00 02/19/21 20:29 Galantamine Hydrobromide (Razadyne) 4 mg BID PO 02/12/21 21:00 02/19/21 20:28 Glucagon (Glucagen Kit) 1 mg PRN Q15MIN PRN IM LOW BLOOD SUGAR 02/12/21 13:15 Non-Formulary Medication (Insulin Aspart (Novolog)) 70-150 Give 0 un... TIDWMEALS SQ 02/12/21 17:00 02/13/21 17:11 DC Loperamide HCl (Imodium) 2 mg PRN Q2HRS PRN PO DIARRHEA 02/12/21 13:15 Non-Formulary Medication (Methyl Salicylate/ Menthol (Analgesic [place])) 1 abby PRN QID PRN TP MUSCLE PAIN 02/12/21 12:15 02/12/21 13:14 DC Artificial Tears (Refresh Classic) 2 drop PRN QID PRN OU DRY EYE 02/12/21 13:15 Linagliptin (Tradjenta) 5 mg DAILY16 PO 02/12/21 16:00 02/19/21 17:22 Olanzapine (ZyPREXA ZYDIS) 5 mg PRN Q2HR PRN PO PSYCHOSIS 02/12/21 12:30 02/20/21 01:31 Divalproex Sodium (Depakote Sprinkles) 375 mg 1300 PO 02/14/21 13:00 02/17/21 18:55 DC 02/17/21 12:24 Divalproex Sodium (Depakote Sprinkles) 500 mg 0900,1700 PO 02/13/21 17:00 02/17/21 18:55 DC 02/17/21 17:00 Insulin Human Lispro (HumaLOG) 0-9 UNITS TIDWMEALS SQ 02/14/21 08:00 02/19/21 12:36 Quetiapine Fumarate (SEROquel) 50 mg HS PO 02/15/21 21:00 02/19/21 20:28 Quetiapine Fumarate (SEROquel) 25 mg DAILY08 PO 02/15/21 08:00 02/19/21 17:48 DC 02/19/21 08:47 Divalproex Sodium (Depakote Sprinkles) 500 mg TID PO 02/18/21 08:00 02/19/21 20:28 Quetiapine Fumarate (SEROquel) 25 mg 0900,1300 PO 02/20/21 09:00 I have reviewed the current psychotropics carefully including drug interactions. Risk benefit ratio favors no change other than as noted in my dictated progress note. Diagnosis: Problems: (1) Dementia in Alzheimer's disease with depression (2) Dementia in Alzheimer's disease with delusions (3) Major neurocognitive disorder (4) Dementia in Alzheimer's disease with early onset with behavioral disturbance (5) Anxiety disorder (6) Dementia, vascular, with delusions (7) Dementia, vascular, with depression (8) Impulse control disorder DEAN GARDNER MD Feb 20, 2021 07:32
[2021-02-20] MEDS: CARVEDILOL 12.5 MG TABLET PO SCH ×2 (07:50→17:18)
[2021-02-20] MEDS: DIVALPROEX 125 MG CAP.SPRINK PO SCH ×4 (07:50→20:04)
[2021-02-20] MEDS: MULTIVITAMIN with MINERAL TABLET. PO SCH (07:50)
[2021-02-20] MEDS: GALANTAMINE 4 MG TABLET PO SCH ×2 (07:50→20:03)
[2021-02-20] MEDS: dilTIAZem HCL 30 MG TABLET PO SCH ×4 (07:51→20:04)
[2021-02-20] MEDS: ASPIRIN ENTERIC COATED 81 MG TABLET.DR. PO SCH (07:51)
[2021-02-20] MEDS: busPIRone 5 MG TABLET. PO SCH ×2 (07:51→20:03)
[2021-02-20] MEDS: PRAZOSIN 5 MG CAPSULE. PO SCH ×2 (07:51→20:04)
[2021-02-20] MEDS: FERROUS SULFATE 325 MG TABLET. PO SCH ×2 (07:51→20:03)
[2021-02-20] MEDS: CLOPIDOGREL BISULFATE 75 MG TABLET PO SCH (07:52)
[2021-02-20] MEDS: LISINOPRIL 10 MG TABLET PO SCH ×2 (07:52→20:03)
[2021-02-20] MEDS: FUROSEMIDE 20 MG TABLET PO SCH (07:52)
[2021-02-20] MEDS: SODIUM CHLORIDE 0.65% NASAL SPRAY 45ML BOTTLE. NS SCH ×2 (07:53→20:04)
[2021-02-20] MEDS: QUEtiapine 25 MG TABLET. PO SCH ×3 (07:55→13:00)
[2021-02-20] MEDS: INSULIN LISPRO 300 UNITS/3 ML VIAL. SQ SCH ×3 (07:59→17:22)
[2021-02-20 16:06] VITALS: BP 108/70
[2021-02-20] MEDS: LINAGLIPTIN 5 MG TABLET PO SCH (17:17)
[2021-02-20] MEDS: QUEtiapine 50 MG TABLET. PO SCH (20:03)
[2021-02-20] MEDS: ATORVASTATIN CALCIUM 20 MG TABLET PO SCH (20:03)
[2021-02-20] MEDS: traZODone 100 MG TABLET. PO PRN (20:04)
[2021-02-20] MEDS: INSULIN GLARGINE SYRINGE. SQ SCH (21:55)
--- NOTE | 2021-02-20 22:06 | PDOC ---
Exam Note: [place] Note: Please also refer to the separate dictated note~for this date of service dictated separately.~Patient seen individually. Discussed the patient with Nursing staff reviewed the chart.~Reviewed interim history and current functioning. Reviewed vital signs,~Labs/ Radiology~and current medications noted below. Continue current treatment with the changes noted in the dictated addendum note Assessment: Vital Signs/I&O: Vital Signs Date Time Temp Pulse Resp B/P (MAP) Pulse Ox O2 Delivery O2 Flow Rate FiO2 02/20/21 20:04 61 108/70 02/20/21 16:06 96.2 16 94 02/20/21 05:57 Room Air I & O 02/19/21 02/19/21 02/20/21 15:00 23:00 07:00 Intake Total 360 ml 120 ml 120 ml Balance 360 ml 120 ml 120 ml Labs: Laboratory Tests Test 02/20/21 07:47 02/20/21 11:35 02/20/21 16:39 02/20/21 19:14 Glucose (Fingerstick) 90 mg/dL (70-99) 86 mg/dL (70-99) 215 mg/dL (70-99) H 198 mg/dL (70-99) H Current Medications: Meds: Laboratory Tests Test 02/20/21 07:47 02/20/21 11:35 02/20/21 16:39 02/20/21 19:14 Glucose (Fingerstick) 90 mg/dL 86 mg/dL 215 mg/dL 198 mg/dL Current Medications Medications (Trade) Dose Ordered Sig/Romeo Route PRN Reason Start Time Stop Time Status Last Admin Dose Admin Hydralazine HCl (Apresoline) 20 mg 1X ONCE IV 02/12/21 02:30 02/12/21 02:24 DC Hydralazine HCl (Apresoline) 10 mg 1X ONCE IV 02/12/21 02:30 02/12/21 02:31 DC 02/12/21 02:35 Hydralazine HCl (Apresoline) 10 mg 1X ONCE IV 02/12/21 03:15 02/12/21 03:16 DC 02/12/21 03:21 Midazolam HCl (Versed) 2.5 mg 1X ONCE IV 02/12/21 05:00 02/12/21 05:01 DC 02/12/21 04:53 Acetaminophen (Tylenol) 650 mg PRN Q6HRS PRN PO MILD PAIN / TEMP > 100.3'F 02/12/21 10:00 02/18/21 22:22 Multi-Ingredient Ointment (Analgesic [place]) 1 abby PRN QID PRN TP MUSCLE PAIN 02/12/21 10:00 Al Hydroxide/Mg Hydroxide (Mylanta Plus Xs) 15 ml PRN AFTMEALHC PRN PO DYSPEPSIA 02/12/21 10:00 Magnesium Hydroxide (Milk Of Magnesia) 2,400 mg PRN QHS PRN PO CONSTIPATION 02/12/21 10:00 Acetaminophen (Tylenol) 650 mg PRN Q6HRS PRN PO MILD PAIN / TEMP > 100.3'F 02/12/21 12:15 Cancel Albuterol Sulfate (Ventolin) 2.5 mg PRN Q6HRS PRN INH SHORTNESS OF BREATH 02/12/21 12:15 Aspirin (Aspirin Enteric Coated) 81 mg DAILY PO 02/13/21 09:00 02/20/21 07:51 Atorvastatin Calcium (Lipitor) 20 mg QHS PO 02/12/21 21:00 02/20/21 20:03 Buspirone HCl (Buspar) 5 mg BID PO 02/12/21 21:00 02/20/21 20:03 Vitamin D (Vitamin D3) 50,000 unit QFR PO 02/15/21 16:00 02/15/21 17:32 Clopidogrel Bisulfate (Plavix) 75 mg DAILY PO 02/13/21 09:00 02/20/21 07:52 Divalproex Sodium (Depakote Sprinkles) 375 mg TID@0900,1300,1700 PO 02/12/21 13:00 02/13/21 15:22 DC 02/13/21 12:47 Ferrous Sulfate (Feosol) 325 mg BID PO 02/12/21 21:00 02/20/21 20:03 Furosemide (Lasix) 20 mg DAILY PO 02/13/21 09:00 02/20/21 07:52 Hydralazine HCl (Apresoline) 12.5 mg PRN Q6HRS PRN PO htn 02/12/21 12:15 Insulin Glargine (Lantus Syringe) 50 unit HS SQ 02/12/21 21:00 02/20/21 21:55 Lisinopril (Prinivil) 20 mg BID PO 02/12/21 21:00 02/20/21 20:03 Multivitamins/ Calcium (Thera-M Plus) 1 tab DAILY PO 02/13/21 09:00 02/20/21 07:50 Ondansetron HCl (Zofran Odt) 4 mg PRN Q6HRS PRN PO NAUSEA/VOMITING 02/12/21 12:15 Prazosin HCl (Minipress) 5 mg BID PO 02/12/21 21:00 02/20/21 20:04 Quetiapine Fumarate (SEROquel) 50 mg DAILY PO 02/13/21 09:00 02/14/21 18:03 DC 02/14/21 05:31 Sodium Chloride (Saline Mist Nasal) 1 abby BID NS 02/12/21 21:00 02/20/21 07:53 Carvedilol (Coreg) 25 mg BIDWMEALS PO 02/12/21 17:00 02/20/21 17:18 Diltiazem HCl (Cardizem) 60 mg TID PO 02/12/21 14:00 02/20/21 20:04 Galantamine Hydrobromide (Razadyne) 4 mg BID PO 02/12/21 21:00 02/20/21 20:03 Glucagon (Glucagen Kit) 1 mg PRN Q15MIN PRN IM LOW BLOOD SUGAR 02/12/21 13:15 Non-Formulary Medication (Insulin Aspart (Novolog)) 70-150 Give 0 un... TIDWMEALS SQ 02/12/21 17:00 02/13/21 17:11 DC Loperamide HCl (Imodium) 2 mg PRN Q2HRS PRN PO DIARRHEA 02/12/21 13:15 Non-Formulary Medication (Methyl Salicylate/ Menthol (Analgesic Senatobia)) 1 abby PRN QID PRN TP MUSCLE PAIN 02/12/21 12:15 02/12/21 13:14 DC Artificial Tears (Refresh Classic) 2 drop PRN QID PRN OU DRY EYE 02/12/21 13:15 Linagliptin (Tradjenta) 5 mg DAILY16 PO 02/12/21 16:00 02/20/21 17:17 Olanzapine (ZyPREXA ZYDIS) 5 mg PRN Q2HR PRN PO PSYCHOSIS 02/12/21 12:30 02/20/21 01:31 Divalproex Sodium (Depakote Sprinkles) 375 mg 1300 PO 02/14/21 13:00 02/17/21 18:55 DC 02/17/21 12:24 Divalproex Sodium (Depakote Sprinkles) 500 mg 0900,1700 PO 02/13/21 17:00 02/17/21 18:55 DC 02/17/21 17:00 Insulin Human Lispro (HumaLOG) 0-9 UNITS TIDWMEALS SQ 02/14/21 08:00 02/20/21 17:22 Quetiapine Fumarate (SEROquel) 50 mg HS PO 02/15/21 21:00 02/20/21 20:03 Quetiapine Fumarate (SEROquel) 25 mg DAILY08 PO 02/15/21 08:00 02/19/21 17:48 DC 02/19/21 08:47 Divalproex Sodium (Depakote Sprinkles) 500 mg TID PO 02/18/21 08:00 02/20/21 20:04 Quetiapine Fumarate (SEROquel) 25 mg 0900,1300 PO 02/20/21 09:00 02/20/21 13:00 Trazodone HCl (Desyrel) 100 mg PRN QHS PRN PO INSOMNIA, MAY REPEAT X1 02/20/21 18:00 02/20/21 20:04 Current Medications Medications (Trade) Dose Ordered Sig/Romeo Route PRN Reason Start Time Stop Time Status Last Admin Dose Admin Quetiapine Fumarate (SEROquel) 25 mg 0900,1300 PO 02/20/21 09:00 02/20/21 13:00 Trazodone HCl (Desyrel) 100 mg PRN QHS PRN PO INSOMNIA, MAY REPEAT X1 02/20/21 18:00 02/20/21 20:04 I have reviewed the current psychotropics carefully including drug interactions. Risk benefit ratio favors no change other than as noted in my dictated progress note. Diagnosis: Problems: (1) Dementia in Alzheimer's disease with depression (2) Dementia in Alzheimer's disease with delusions (3) Major neurocognitive disorder (4) Dementia in Alzheimer's disease with early onset with behavioral disturbance (5) Dementia, vascular, with delusions (6) Anxiety disorder (7) Dementia, vascular, with depression (8) Impulse control disorder DEAN GARDNER MD Feb 20, 2021 22:06
[2021-02-21 06:16] VITALS: BP 132/70
[2021-02-21] MEDS: INSULIN LISPRO 300 UNITS/3 ML VIAL. SQ SCH ×3 (08:00→17:33)
[2021-02-21] MEDS: ASPIRIN ENTERIC COATED 81 MG TABLET.DR. PO SCH (08:12)
[2021-02-21] MEDS: busPIRone 5 MG TABLET. PO SCH ×2 (08:12→21:03)
[2021-02-21] MEDS: FUROSEMIDE 20 MG TABLET PO SCH (08:12)
[2021-02-21] MEDS: QUEtiapine 25 MG TABLET. PO SCH ×3 (08:12→21:04)
[2021-02-21] MEDS: CARVEDILOL 12.5 MG TABLET PO SCH ×2 (08:13→17:17)
[2021-02-21] MEDS: DIVALPROEX 125 MG CAP.SPRINK PO SCH ×3 (08:13→21:04)
[2021-02-21] MEDS: MULTIVITAMIN with MINERAL TABLET. PO SCH (08:14)
[2021-02-21] MEDS: PRAZOSIN 5 MG CAPSULE. PO SCH ×2 (08:14→21:03)
[2021-02-21] MEDS: GALANTAMINE 4 MG TABLET PO SCH ×2 (08:14→21:02)
[2021-02-21] MEDS: LISINOPRIL 10 MG TABLET PO SCH ×2 (08:14→21:04)
[2021-02-21] MEDS: FERROUS SULFATE 325 MG TABLET. PO SCH ×2 (08:14→21:03)
[2021-02-21] MEDS: SODIUM CHLORIDE 0.65% NASAL SPRAY 45ML BOTTLE. NS SCH ×2 (08:15→21:01)
[2021-02-21] MEDS: dilTIAZem HCL 30 MG TABLET PO SCH ×3 (08:15→21:03)
[2021-02-21] MEDS: CLOPIDOGREL BISULFATE 75 MG TABLET PO SCH (08:15)
[2021-02-21 12:23] LABS: BASO % 1 % (0-3); EOS # 0.2 x10^3/uL (0.0-0.7); EOS % 2 % (0-3); HEMATOCRIT 35.9 % (39.0-53.0); HEMOGLOBIN 11.6 g/dL (13.0-17.5); LYMPH # 2.3 x10^3/uL (1.0-4.8); LYMPH % 31 % (24-48); MEAN CORPUSCULAR HEMOGLOBIN 30 pg (25-35); MEAN CORPUSCULAR HGB CONC 32 g/dL (31-37); MEAN CORPUSCULAR VOLUME 92 fL (79-100); MONO # 0.8 x10^3/uL (0.0-1.1); MONO % 11 % (0-9); NEUT % 55 % (31-73); PLATELET COUNT 157 x10^3/uL (140-400); RED BLOOD COUNT 3.89 x10^6/uL (4.30-5.70); RED CELL DISTRIBUTION WIDTH 14.9 % (11.5-14.5); WHITE BLOOD COUNT 7.4 x10^3/uL (4.0-11.0)
[2021-02-21 12:38] LABS: ALBUMIN/GLOBULIN RATIO 0.8 (1.0-1.7); ALK PHOS 54 U/L (46-116); ALT (SGPT) 36 U/L (16-63); ANION GAP 9 (6-14); AST (SGOT) 20 U/L (15-37); BLOOD UREA NITROGEN 29 mg/dL (8-26); BUN/CREATININE RATIO 18 (6-20); CALCIUM 8.6 mg/dL (8.5-10.1); CARBON DIOXIDE 27 mmol/L (21-32); CHLORIDE 107 mmol/L (98-107); CREATININE 1.6 mg/dL (0.7-1.3); GFR 51.8; GLUCOSE 172 mg/dL (70-99); POTASSIUM 4.2 mmol/L (3.5-5.1); SODIUM 143 mmol/L (136-145); TOTAL BILIRUBIN 0.4 mg/dL (0.2-1.0); TOTAL PROTEIN 6.6 g/dL (6.4-8.2); VAL ACID 66 mcg/mL (50-100)
--- NOTE | 2021-02-21 14:40 | TX PLAN ---
Interdisciplinary Tx Plan Admission Information Feb 12, 2021 at 08:00 Legal Status (on Admission): Voluntary DPOA/Guardian Name: Raffaele Hawk Contact Other Contact Name: [facility] Other Contact Verified Code Status: Full Code Allergies: Coded Allergies: No Known Drug Allergies (Unverified , 02/12/21) Diagnoses Primary Diagnosis: Major Neurocognitive D/O Reasons for Admission: Aggressive, Agitated, Confusion/Disoriented Problem in Patient's Words: He's getting more delusional Additional Admission Comments: According to the intake, pt is being aggressive towards staff, cursing, threatening peer, confused, angry and irritable Problems Active Problems: delusional agitated confused Inactive Problems: Medication compliant Pt Strengths/Limitations Ability for Mayes: Poor Cognitive Functioning/Ability: Fair Communication Skills/Ability: Fair Financial Resources: Fair Insight/Judgement: Poor Intellectual Ability: Fair Physical Health: Poor Social Skills: Poor Stability in Family: Fair Stability in School/Work: Poor Verbal Skills: Fair Discharge Criteria Discharge Criteria: No need for close observ., Adequate arrangements @DC, Improved behavior, Improved mood/thought Preliminary Discharge Plan Preliminary DC Plan: Current Living Arrange. Special Precautions Fall Risk: Moderate Initial D/C Plan Will return to [facility] once stable. Identified Discharge Needs: Psychiatric follow-up Currently Utilized Resources Currently Utilized Resources/P: Primary Care Physician Referrals Community Resources: Psychiatric follow-up Identified Problems/Hx/Goals Objectives/Short-Term Goals Short Term Goals: Dec. Aggression, Dec. Outbursts, Improved Social Skills, Medication Stabilization, Promote Coping Skill Short Term Goals in Patient's: N/A Interventions/Frequency Staff Interventions/Frequency&: Psychiatrist to assess pt at least 3x per week for medication mgmt Social Work to assess pt at least 2x per week to identify barriers to care and finalize discharge planning. Nursing to assess medication mgmt, behavior modification and complete 15 minute checks daily. Encourage participation in group activities (if applicable) or 1:1 engagement based off activity dept goals. 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 Pt is mostly calm and medication compliant. Pt is confused and does have periods of irritation towards staff. Pt appeared to be more compliant with night clerk and giving day shift more troubles with making demands or complaints. Pt has attended one group this week with no active participation. Pt does appear to still remain psychotic; however, no medication changes will be made. Pt had labs completed and is waiting for the VPA level re: Depakote. Pt will plan to return to [facility] next . COLTON RILEY Feb 21, 2021 14:40
[2021-02-21] MEDS: LINAGLIPTIN 5 MG TABLET PO SCH (17:17)
[2021-02-21 18:17] VITALS: BP 138/77
[2021-02-21] MEDS: traZODone 100 MG TABLET. PO PRN ×2 (21:02→23:38)
[2021-02-21] MEDS: INSULIN GLARGINE SYRINGE. SQ SCH (21:02)
[2021-02-21] MEDS: ATORVASTATIN CALCIUM 20 MG TABLET PO SCH (21:02)
--- NOTE | 2021-02-21 22:07 | PDOC ---
Exam Note: [place] Note: Please also refer to the separate dictated note~for this date of service dictated separately.~Patient seen individually. Discussed the patient with Nursing staff reviewed the chart.~Reviewed interim history and current functioning. Reviewed vital signs,~Labs/ Radiology~and current medications noted below. Continue current treatment with the changes noted in the dictated addendum note Assessment: Vital Signs/I&O: Vital Signs Date Time Temp Pulse Resp B/P (MAP) Pulse Ox O2 Delivery O2 Flow Rate FiO2 02/21/21 21:04 64 138/77 02/21/21 18:17 98.5 18 100 02/20/21 05:57 Room Air I & O 02/20/21 02/20/21 02/21/21 15:00 23:00 07:00 Intake Total 480 ml 220 ml 120 ml Balance 480 ml 220 ml 120 ml Labs: Laboratory Tests Test 02/21/21 08:08 02/21/21 12:00 02/21/21 12:11 02/21/21 17:14 Glucose (Fingerstick) 98 mg/dL (70-99) 165 mg/dL (70-99) H 168 mg/dL (70-99) H White Blood Count 7.4 x10^3/uL (4.0-11.0) Red Blood Count 3.89 x10^6/uL (4.30-5.70) L Hemoglobin 11.6 g/dL (13.0-17.5) L Hematocrit 35.9 % (39.0-53.0) L Mean Corpuscular Volume 92 fL (79-100) Mean Corpuscular Hemoglobin 30 pg (25-35) Mean Corpuscular Hemoglobin Concent 32 g/dL (31-37) Red Cell Distribution Width 14.9 % (11.5-14.5) H Platelet Count 157 x10^3/uL (140-400) Neutrophils (%) (Auto) 55 % (31-73) Lymphocytes (%) (Auto) 31 % (24-48) Monocytes (%) (Auto) 11 % (0-9) H Eosinophils (%) (Auto) 2 % (0-3) Basophils (%) (Auto) 1 % (0-3) Neutrophils # (Auto) 4.0 x10^3uL (1.8-7.7) Lymphocytes # (Auto) 2.3 x10^3/uL (1.0-4.8) Monocytes # (Auto) 0.8 x10^3/uL (0.0-1.1) Eosinophils # (Auto) 0.2 x10^3/uL (0.0-0.7) Basophils # (Auto) 0.0 x10^3/uL (0.0-0.2) Sodium Level 143 mmol/L (136-145) Potassium Level 4.2 mmol/L (3.5-5.1) Chloride Level 107 mmol/L (98-107) Carbon Dioxide Level 27 mmol/L (21-32) Anion Gap 9 (6-14) Blood Urea Nitrogen 29 mg/dL (8-26) H Creatinine 1.6 mg/dL (0.7-1.3) H Estimated GFR (Cockcroft-Gault) 51.8 BUN/Creatinine Ratio 18 (6-20) Glucose Level 172 mg/dL (70-99) H Calcium Level 8.6 mg/dL (8.5-10.1) Total Bilirubin 0.4 mg/dL (0.2-1.0) Aspartate Amino Transferase (AST) 20 U/L (15-37) Alanine Aminotransferase (ALT) 36 U/L (16-63) Alkaline Phosphatase 54 U/L (46-116) Total Protein 6.6 g/dL (6.4-8.2) Albumin 3.0 g/dL (3.4-5.0) L Albumin/Globulin Ratio 0.8 (1.0-1.7) L Valproic Acid Level 66 mcg/mL (50-100) Valproic Acid Last Dose Date 02/20/21 Valproic Acid Last Dose Time 2100 Test 02/21/21 20:31 Glucose (Fingerstick) 150 mg/dL (70-99) H Current Medications: Meds: Laboratory Tests Test 02/21/21 08:08 02/21/21 12:00 02/21/21 12:11 02/21/21 17:14 Glucose (Fingerstick) 98 mg/dL 165 mg/dL 168 mg/dL White Blood Count 7.4 x10^3/uL Red Blood Count 3.89 x10^6/uL Hemoglobin 11.6 g/dL Hematocrit 35.9 % Mean Corpuscular Volume 92 fL Mean Corpuscular Hemoglobin 30 pg Mean Corpuscular Hemoglobin Concent 32 g/dL Red Cell Distribution Width 14.9 % Platelet Count 157 x10^3/uL Neutrophils (%) (Auto) 55 % Lymphocytes (%) (Auto) 31 % Monocytes (%) (Auto) 11 % Eosinophils (%) (Auto) 2 % Basophils (%) (Auto) 1 % Neutrophils # (Auto) 4.0 x10^3uL Lymphocytes # (Auto) 2.3 x10^3/uL Monocytes # (Auto) 0.8 x10^3/uL Eosinophils # (Auto) 0.2 x10^3/uL Basophils # (Auto) 0.0 x10^3/uL Sodium Level 143 mmol/L Potassium Level 4.2 mmol/L Chloride Level 107 mmol/L Carbon Dioxide Level 27 mmol/L Anion Gap 9 Blood Urea Nitrogen 29 mg/dL Creatinine 1.6 mg/dL Estimated GFR (Cockcroft-Gault) 51.8 BUN/Creatinine Ratio 18 Glucose Level 172 mg/dL Calcium Level 8.6 mg/dL Total Bilirubin 0.4 mg/dL Aspartate Amino Transf (AST/SGOT) 20 U/L Alanine Aminotransferase (ALT/SGPT) 36 U/L Alkaline Phosphatase 54 U/L Total Protein 6.6 g/dL Albumin 3.0 g/dL Albumin/Globulin Ratio 0.8 Valproic Acid (Depakene) Level 66 mcg/mL Valproic Acid Last Dose Date 02/20/21 Valproic Acid Last Dose Time 2100 Test 02/21/21 20:31 Glucose (Fingerstick) 150 mg/dL Current Medications Medications (Trade) Dose Ordered Sig/Romeo Route PRN Reason Start Time Stop Time Status Last Admin Dose Admin Hydralazine HCl (Apresoline) 20 mg 1X ONCE IV 02/12/21 02:30 02/12/21 02:24 DC Hydralazine HCl (Apresoline) 10 mg 1X ONCE IV 02/12/21 02:30 02/12/21 02:31 DC 02/12/21 02:35 Hydralazine HCl (Apresoline) 10 mg 1X ONCE IV 02/12/21 03:15 02/12/21 03:16 DC 02/12/21 03:21 Midazolam HCl (Versed) 2.5 mg 1X ONCE IV 02/12/21 05:00 02/12/21 05:01 DC 02/12/21 04:53 Acetaminophen (Tylenol) 650 mg PRN Q6HRS PRN PO MILD PAIN / TEMP > 100.3'F 02/12/21 10:00 02/18/21 22:22 Multi-Ingredient Ointment (Analgesic [place]) 1 abby PRN QID PRN TP MUSCLE PAIN 02/12/21 10:00 Al Hydroxide/Mg Hydroxide (Mylanta Plus Xs) 15 ml PRN AFTMEALHC PRN PO DYSPEPSIA 02/12/21 10:00 Magnesium Hydroxide (Milk Of Magnesia) 2,400 mg PRN QHS PRN PO CONSTIPATION 02/12/21 10:00 Acetaminophen (Tylenol) 650 mg PRN Q6HRS PRN PO MILD PAIN / TEMP > 100.3'F 02/12/21 12:15 Cancel Albuterol Sulfate (Ventolin) 2.5 mg PRN Q6HRS PRN INH SHORTNESS OF BREATH 02/12/21 12:15 Aspirin (Aspirin Enteric Coated) 81 mg DAILY PO 02/13/21 09:00 02/21/21 08:12 Atorvastatin Calcium (Lipitor) 20 mg QHS PO 02/12/21 21:00 02/21/21 21:02 Buspirone HCl (Buspar) 5 mg BID PO 02/12/21 21:00 02/21/21 21:03 Vitamin D (Vitamin D3) 50,000 unit QFR PO 02/15/21 16:00 02/15/21 17:32 Clopidogrel Bisulfate (Plavix) 75 mg DAILY PO 02/13/21 09:00 02/21/21 08:15 Divalproex Sodium (Depakote Sprinkles) 375 mg TID@0900,1300,1700 PO 02/12/21 13:00 02/13/21 15:22 DC 02/13/21 12:47 Ferrous Sulfate (Feosol) 325 mg BID PO 02/12/21 21:00 02/21/21 21:03 Furosemide (Lasix) 20 mg DAILY PO 02/13/21 09:00 02/21/21 08:12 Hydralazine HCl (Apresoline) 12.5 mg PRN Q6HRS PRN PO htn 02/12/21 12:15 Insulin Glargine (Lantus Syringe) 50 unit HS SQ 02/12/21 21:00 02/21/21 21:02 Lisinopril (Prinivil) 20 mg BID PO 02/12/21 21:00 02/21/21 21:04 Multivitamins/ Calcium (Thera-M Plus) 1 tab DAILY PO 02/13/21 09:00 02/21/21 08:14 Ondansetron HCl (Zofran Odt) 4 mg PRN Q6HRS PRN PO NAUSEA/VOMITING 02/12/21 12:15 Prazosin HCl (Minipress) 5 mg BID PO 02/12/21 21:00 02/21/21 21:03 Quetiapine Fumarate (SEROquel) 50 mg DAILY PO 02/13/21 09:00 02/14/21 18:03 DC 02/14/21 05:31 Sodium Chloride (Saline Mist Nasal) 1 abby BID NS 02/12/21 21:00 02/21/21 21:01 Carvedilol (Coreg) 25 mg BIDWMEALS PO 02/12/21 17:00 02/21/21 17:17 Diltiazem HCl (Cardizem) 60 mg TID PO 02/12/21 14:00 02/21/21 21:03 Galantamine Hydrobromide (Razadyne) 4 mg BID PO 02/12/21 21:00 02/21/21 21:02 Glucagon (Glucagen Kit) 1 mg PRN Q15MIN PRN IM LOW BLOOD SUGAR 02/12/21 13:15 Non-Formulary Medication (Insulin Aspart (Novolog)) 70-150 Give 0 un... TIDWMEALS SQ 02/12/21 17:00 02/13/21 17:11 DC Loperamide HCl (Imodium) 2 mg PRN Q2HRS PRN PO DIARRHEA 02/12/21 13:15 Non-Formulary Medication (Methyl Salicylate/ Menthol (Analgesic [place])) 1 abby PRN QID PRN TP MUSCLE PAIN 02/12/21 12:15 02/12/21 13:14 DC Artificial Tears (Refresh Classic) 2 drop PRN QID PRN OU DRY EYE 02/12/21 13:15 Linagliptin (Tradjenta) 5 mg DAILY16 PO 02/12/21 16:00 02/21/21 17:17 Olanzapine (ZyPREXA ZYDIS) 5 mg PRN Q2HR PRN PO PSYCHOSIS 02/12/21 12:30 02/20/21 01:31 Divalproex Sodium (Depakote Sprinkles) 375 mg 1300 PO 02/14/21 13:00 02/17/21 18:55 DC 02/17/21 12:24 Divalproex Sodium (Depakote Sprinkles) 500 mg 0900,1700 PO 02/13/21 17:00 02/17/21 18:55 DC 02/17/21 17:00 Insulin Human Lispro (HumaLOG) 0-9 UNITS TIDWMEALS SQ 02/14/21 08:00 02/21/21 17:33 Quetiapine Fumarate (SEROquel) 50 mg HS PO 02/15/21 21:00 02/21/21 20:28 DC 02/20/21 20:03 Quetiapine Fumarate (SEROquel) 25 mg DAILY08 PO 02/15/21 08:00 02/19/21 17:48 DC 02/19/21 08:47 Divalproex Sodium (Depakote Sprinkles) 500 mg TID PO 02/18/21 08:00 02/21/21 21:04 Quetiapine Fumarate (SEROquel) 25 mg 0900,1300 PO 02/20/21 09:00 02/21/21 12:35 Trazodone HCl (Desyrel) 100 mg PRN QHS PRN PO INSOMNIA, MAY REPEAT X1 02/20/21 18:00 02/21/21 21:02 Quetiapine Fumarate (SEROquel) 75 mg HS PO 02/21/21 21:00 02/21/21 21:04 Current Medications Medications (Trade) Dose Ordered Sig/Romeo Route PRN Reason Start Time Stop Time Status Last Admin Dose Admin Quetiapine Fumarate (SEROquel) 75 mg HS PO 02/21/21 21:00 02/21/21 21:04 I have reviewed the current psychotropics carefully including drug interactions. Risk benefit ratio favors no change other than as noted in my dictated progress note. Diagnosis: Problems: (1) Dementia in Alzheimer's disease with delusions (2) Major neurocognitive disorder (3) Dementia in Alzheimer's disease with early onset with behavioral disturbance (4) Anxiety disorder (5) Dementia, vascular, with delusions (6) Dementia, vascular, with depression (7) Impulse control disorder (8) Dementia in Alzheimer's disease with depression DEAN GARDNER MD Feb 21, 2021 22:07
[2021-02-22 04:44] LABS: BACTERIA,URINE 0 /HPF (0-FEW); BILIRUBIN,URINE NEG (NEG); CLARITY,URINE CLEAR; COLOR,URINE YELLOW; GLUCOSE,URINE NEG (NEG); NITRITE,URINE NEG (NEG); RBC,URINE OCC /HPF (0-2); SQUAMOUS EPITHELIAL CELL,UR MOD /LPF
[2021-02-22 05:58] VITALS: BP 156/90
[2021-02-22] MEDS: INSULIN LISPRO 300 UNITS/3 ML VIAL. SQ SCH ×3 (08:00→17:00)
[2021-02-22] MEDS: SODIUM CHLORIDE 0.65% NASAL SPRAY 45ML BOTTLE. NS SCH ×2 (08:38→21:12)
[2021-02-22] MEDS: MULTIVITAMIN with MINERAL TABLET. PO SCH (08:38)
[2021-02-22] MEDS: FERROUS SULFATE 325 MG TABLET. PO SCH ×2 (08:38→21:14)
[2021-02-22] MEDS: GALANTAMINE 4 MG TABLET PO SCH ×2 (08:38→21:15)
[2021-02-22] MEDS: busPIRone 5 MG TABLET. PO SCH ×2 (08:38→21:12)
[2021-02-22] MEDS: ASPIRIN ENTERIC COATED 81 MG TABLET.DR. PO SCH (08:38)
[2021-02-22] MEDS: QUEtiapine 25 MG TABLET. PO SCH ×3 (08:38→21:15)
[2021-02-22] MEDS: FUROSEMIDE 20 MG TABLET PO SCH (08:38)
[2021-02-22] MEDS: CLOPIDOGREL BISULFATE 75 MG TABLET PO SCH (08:39)
[2021-02-22] MEDS: PRAZOSIN 5 MG CAPSULE. PO SCH ×2 (08:39→21:13)
[2021-02-22] MEDS: LISINOPRIL 10 MG TABLET PO SCH ×2 (08:39→21:14)
[2021-02-22] MEDS: dilTIAZem HCL 30 MG TABLET PO SCH ×3 (08:40→21:12)
[2021-02-22] MEDS: CARVEDILOL 12.5 MG TABLET PO SCH ×2 (08:40→16:17)
[2021-02-22] MEDS: DIVALPROEX 125 MG CAP.SPRINK PO SCH ×3 (08:40→21:16)
[2021-02-22 16:02] VITALS: BP 148/78
[2021-02-22] MEDS: CHOLECALCIFEROL (VITAMIN D3) 50,000 UNIT CAPSULE PO SCH (16:15)
[2021-02-22] MEDS: LINAGLIPTIN 5 MG TABLET PO SCH (16:15)
[2021-02-22] MEDS: INSULIN GLARGINE SYRINGE. SQ SCH (21:11)
[2021-02-22] MEDS: ATORVASTATIN CALCIUM 20 MG TABLET PO SCH (21:13)
[2021-02-22] MEDS: traZODone 100 MG TABLET. PO PRN (21:15)
--- NOTE | 2021-02-22 22:25 | PDOC ---
Exam Note: [place] Note: Please also refer to the separate dictated note~for this date of service dictated separately.~Patient seen individually. Discussed the patient with Nursing staff reviewed the chart.~Reviewed interim history and current functioning. Reviewed vital signs,~Labs/ Radiology~and current medications noted below. Continue current treatment with the changes noted in the dictated addendum note Assessment: Vital Signs/I&O: Vital Signs Date Time Temp Pulse Resp B/P (MAP) Pulse Ox O2 Delivery O2 Flow Rate FiO2 02/22/21 21:14 59 148/78 02/22/21 16:02 97.3 16 97 Room Air I & O 02/21/21 02/21/21 02/22/21 15:00 23:00 07:00 Intake Total 480 ml 460 ml Balance 480 ml 460 ml Labs: Laboratory Tests Test 02/22/21 04:13 02/22/21 07:51 02/22/21 11:56 02/22/21 17:04 Urine Collection Type U cath Urine Color Yellow Urine Clarity Clear Urine pH 6.5 Urine Specific [place] 1.020 Urine Protein Neg (NEG-TRACE) Urine Glucose (UA) Neg mg/dL (NEG) Urine Ketones (Stick) Neg mg/dL (NEG) Urine Blood Trace (NEG) Urine Nitrite Neg (NEG) Urine Bilirubin Neg (NEG) Urine Urobilinogen Dipstick 1.0 mg/dL (0.2 mg/dL) Urine Leukocyte Esterase Neg (NEG) Urine RBC Occ /HPF (0-2) Urine WBC 1-4 /HPF (0-4) Urine Squamous Epithelial Cells Mod /LPF Urine Bacteria 0 /HPF (0-FEW) Glucose (Fingerstick) 104 mg/dL (70-99) H 169 mg/dL (70-99) H 142 mg/dL (70-99) H Test 02/22/21 19:18 Glucose (Fingerstick) 214 mg/dL (70-99) H Current Medications: Meds: Laboratory Tests Test 02/22/21 04:13 02/22/21 07:51 02/22/21 11:56 02/22/21 17:04 Urine Collection Type U cath Urine Color Yellow Urine Clarity Clear Urine pH 6.5 Urine Specific [place] 1.020 Urine Protein Neg Urine Glucose (UA) Neg mg/dL Urine Ketones (Stick) Neg mg/dL Urine Blood Trace Urine Nitrite Neg Urine Bilirubin Neg Urine Urobilinogen Dipstick 1.0 mg/dL Urine Leukocyte Esterase Neg Urine RBC Occ /HPF Urine WBC 1-4 /HPF Urine Squamous Epithelial Cells Mod /LPF Urine Bacteria 0 /HPF Glucose (Fingerstick) 104 mg/dL 169 mg/dL 142 mg/dL Test 02/22/21 19:18 Glucose (Fingerstick) 214 mg/dL Current Medications Medications (Trade) Dose Ordered Sig/Romeo Route PRN Reason Start Time Stop Time Status Last Admin Dose Admin Hydralazine HCl (Apresoline) 20 mg 1X ONCE IV 02/12/21 02:30 02/12/21 02:24 DC Hydralazine HCl (Apresoline) 10 mg 1X ONCE IV 02/12/21 02:30 02/12/21 02:31 DC 02/12/21 02:35 Hydralazine HCl (Apresoline) 10 mg 1X ONCE IV 02/12/21 03:15 02/12/21 03:16 DC 02/12/21 03:21 Midazolam HCl (Versed) 2.5 mg 1X ONCE IV 02/12/21 05:00 02/12/21 05:01 DC 02/12/21 04:53 Acetaminophen (Tylenol) 650 mg PRN Q6HRS PRN PO MILD PAIN / TEMP > 100.3'F 02/12/21 10:00 02/18/21 22:22 Multi-Ingredient Ointment (Analgesic [place]) 1 abby PRN QID PRN TP MUSCLE PAIN 02/12/21 10:00 Al Hydroxide/Mg Hydroxide (Mylanta Plus Xs) 15 ml PRN AFTMEALHC PRN PO DYSPEPSIA 02/12/21 10:00 Magnesium Hydroxide (Milk Of Magnesia) 2,400 mg PRN QHS PRN PO CONSTIPATION 02/12/21 10:00 Acetaminophen (Tylenol) 650 mg PRN Q6HRS PRN PO MILD PAIN / TEMP > 100.3'F 02/12/21 12:15 Cancel Albuterol Sulfate (Ventolin) 2.5 mg PRN Q6HRS PRN INH SHORTNESS OF BREATH 02/12/21 12:15 Aspirin (Aspirin Enteric Coated) 81 mg DAILY PO 02/13/21 09:00 02/22/21 08:38 Atorvastatin Calcium (Lipitor) 20 mg QHS PO 02/12/21 21:00 02/22/21 21:13 Buspirone HCl (Buspar) 5 mg BID PO 02/12/21 21:00 02/22/21 21:12 Vitamin D (Vitamin D3) 50,000 unit QFR PO 02/15/21 16:00 02/22/21 16:15 Clopidogrel Bisulfate (Plavix) 75 mg DAILY PO 02/13/21 09:00 02/22/21 08:39 Divalproex Sodium (Depakote Sprinkles) 375 mg TID@0900,1300,1700 PO 02/12/21 13:00 02/13/21 15:22 DC 02/13/21 12:47 Ferrous Sulfate (Feosol) 325 mg BID PO 02/12/21 21:00 02/22/21 21:14 Furosemide (Lasix) 20 mg DAILY PO 02/13/21 09:00 02/22/21 08:38 Hydralazine HCl (Apresoline) 12.5 mg PRN Q6HRS PRN PO htn 02/12/21 12:15 Insulin Glargine (Lantus Syringe) 50 unit HS SQ 02/12/21 21:00 02/22/21 21:11 Lisinopril (Prinivil) 20 mg BID PO 02/12/21 21:00 02/22/21 21:14 Multivitamins/ Calcium (Thera-M Plus) 1 tab DAILY PO 02/13/21 09:00 02/22/21 08:38 Ondansetron HCl (Zofran Odt) 4 mg PRN Q6HRS PRN PO NAUSEA/VOMITING 02/12/21 12:15 Prazosin HCl (Minipress) 5 mg BID PO 02/12/21 21:00 02/22/21 21:13 Quetiapine Fumarate (SEROquel) 50 mg DAILY PO 02/13/21 09:00 02/14/21 18:03 DC 02/14/21 05:31 Sodium Chloride (Saline Mist Nasal) 1 abby BID NS 02/12/21 21:00 02/22/21 21:12 Carvedilol (Coreg) 25 mg BIDWMEALS PO 02/12/21 17:00 02/22/21 08:40 Diltiazem HCl (Cardizem) 60 mg TID PO 02/12/21 14:00 02/22/21 21:12 Galantamine Hydrobromide (Razadyne) 4 mg BID PO 02/12/21 21:00 02/22/21 21:15 Glucagon (Glucagen Kit) 1 mg PRN Q15MIN PRN IM LOW BLOOD SUGAR 02/12/21 13:15 Non-Formulary Medication (Insulin Aspart (Novolog)) 70-150 Give 0 un... TIDWMEALS SQ 02/12/21 17:00 02/13/21 17:11 DC Loperamide HCl (Imodium) 2 mg PRN Q2HRS PRN PO DIARRHEA 02/12/21 13:15 Non-Formulary Medication (Methyl Salicylate/ Menthol (Analgesic [place])) 1 abby PRN QID PRN TP MUSCLE PAIN 02/12/21 12:15 02/12/21 13:14 DC Artificial Tears (Refresh Classic) 2 drop PRN QID PRN OU DRY EYE 02/12/21 13:15 Linagliptin (Tradjenta) 5 mg DAILY16 PO 02/12/21 16:00 02/22/21 16:15 Olanzapine (ZyPREXA ZYDIS) 5 mg PRN Q2HR PRN PO PSYCHOSIS 02/12/21 12:30 02/22/21 21:14 Divalproex Sodium (Depakote Sprinkles) 375 mg 1300 PO 02/14/21 13:00 02/17/21 18:55 DC 02/17/21 12:24 Divalproex Sodium (Depakote Sprinkles) 500 mg 0900,1700 PO 02/13/21 17:00 02/17/21 18:55 DC 02/17/21 17:00 Insulin Human Lispro (HumaLOG) 0-9 UNITS TIDWMEALS SQ 02/14/21 08:00 02/22/21 12:46 Quetiapine Fumarate (SEROquel) 50 mg HS PO 02/15/21 21:00 02/21/21 20:28 DC 02/20/21 20:03 Quetiapine Fumarate (SEROquel) 25 mg DAILY08 PO 02/15/21 08:00 02/19/21 17:48 DC 02/19/21 08:47 Divalproex Sodium (Depakote Sprinkles) 500 mg TID PO 02/18/21 08:00 02/22/21 21:16 Quetiapine Fumarate (SEROquel) 25 mg 0900,1300 PO 02/20/21 09:00 02/22/21 13:05 Trazodone HCl (Desyrel) 100 mg PRN QHS PRN PO INSOMNIA, MAY REPEAT X1 02/20/21 18:00 02/22/21 21:15 Quetiapine Fumarate (SEROquel) 75 mg HS PO 02/21/21 21:00 02/22/21 21:15 I have reviewed the current psychotropics carefully including drug interactions. Risk benefit ratio favors no change other than as noted in my dictated progress note. Diagnosis: Problems: (1) Dementia in Alzheimer's disease with depression (2) Dementia in Alzheimer's disease with delusions (3) Major neurocognitive disorder (4) Dementia in Alzheimer's disease with early onset with behavioral disturbance (5) Anxiety disorder (6) Dementia, vascular, with delusions (7) Dementia, vascular, with depression (8) Impulse control disorder DEAN GARDNER MD Feb 22, 2021 22:25
[2021-02-23 06:46] VITALS: BP 142/81
--- NOTE | 2021-02-23 07:47 | PDOC ---
Exam Note: [place] Note: This note is a late entry for 02/20/2021 covers elements not covered in my initial note. Subjective: The patient was seen individually in the evening of 02/20/2021 with Anabelle KWOK, discussed and reviewed the chart. He slept just 1/2 hours previous night. The patient has been delusional, shouting that there is fire. He had a difficult night per nursing report, compliant with medications, somewhat drowsy at times. He slept through breakfast and lunch, refusing medications. Reportedly playing possum per nursing report. Later took his medications. Valproic acid level is 49. Depakote has been adjusted and labs will be repeated on 02/21. Review of Systems: Ambulation impaired in wheelchair. No CV, , pulmonary, eye, ENT system symptoms on review. Mental Status Exam: The patient is oriented to himself. Insight and judgment, recent and remote memory, attention and concentration, fund of knowledge is poor consistent with his diagnoses. Laboratory Data: Reviewed. Impression: Major neurocognitive disorder Alzheimer vascular with delusion, depression, behavioral disturbance. Anxiety disorder unspecified. Impulse control disorder unspecified. Plan: No change from initial note. We will increase trazodone to 100 mg h.s. p.r.n. may repeat x1. Adjust Depakote post labs. Assessment: Vital Signs/I&O: Vital Signs Date Time Temp Pulse Resp B/P (MAP) Pulse Ox O2 Delivery O2 Flow Rate FiO2 02/23/21 06:46 97.2 65 15 142/81 (101) 98 02/22/21 16:02 Room Air I & O 02/22/21 02/22/21 02/23/21 15:00 23:00 07:00 Intake Total 360 ml 360 ml Balance 360 ml 360 ml Labs: Laboratory Tests Test 02/22/21 07:51 02/22/21 11:56 02/22/21 17:04 02/22/21 19:18 Glucose (Fingerstick) 104 mg/dL (70-99) H 169 mg/dL (70-99) H 142 mg/dL (70-99) H 214 mg/dL (70-99) H Test 02/23/21 07:30 Glucose (Fingerstick) 73 mg/dL (70-99) Current Medications: Meds: Laboratory Tests Test 02/22/21 07:51 02/22/21 11:56 02/22/21 17:04 02/22/21 19:18 Glucose (Fingerstick) 104 mg/dL 169 mg/dL 142 mg/dL 214 mg/dL Test 02/23/21 07:30 Glucose (Fingerstick) 73 mg/dL Current Medications Medications (Trade) Dose Ordered Sig/Romeo Route PRN Reason Start Time Stop Time Status Last Admin Dose Admin Hydralazine HCl (Apresoline) 20 mg 1X ONCE IV 02/12/21 02:30 02/12/21 02:24 DC Hydralazine HCl (Apresoline) 10 mg 1X ONCE IV 02/12/21 02:30 02/12/21 02:31 DC 02/12/21 02:35 Hydralazine HCl (Apresoline) 10 mg 1X ONCE IV 02/12/21 03:15 02/12/21 03:16 DC 02/12/21 03:21 Midazolam HCl (Versed) 2.5 mg 1X ONCE IV 02/12/21 05:00 02/12/21 05:01 DC 02/12/21 04:53 Acetaminophen (Tylenol) 650 mg PRN Q6HRS PRN PO MILD PAIN / TEMP > 100.3'F 02/12/21 10:00 02/18/21 22:22 Multi-Ingredient Ointment (Analgesic [place]) 1 abby PRN QID PRN TP MUSCLE PAIN 02/12/21 10:00 Al Hydroxide/Mg Hydroxide (Mylanta Plus Xs) 15 ml PRN AFTMEALHC PRN PO DYSPEPSIA 02/12/21 10:00 Magnesium Hydroxide (Milk Of Magnesia) 2,400 mg PRN QHS PRN PO CONSTIPATION 02/12/21 10:00 Acetaminophen (Tylenol) 650 mg PRN Q6HRS PRN PO MILD PAIN / TEMP > 100.3'F 02/12/21 12:15 Cancel Albuterol Sulfate (Ventolin) 2.5 mg PRN Q6HRS PRN INH SHORTNESS OF BREATH 02/12/21 12:15 Aspirin (Aspirin Enteric Coated) 81 mg DAILY PO 02/13/21 09:00 02/22/21 08:38 Atorvastatin Calcium (Lipitor) 20 mg QHS PO 02/12/21 21:00 02/22/21 21:13 Buspirone HCl (Buspar) 5 mg BID PO 02/12/21 21:00 02/22/21 21:12 Vitamin D (Vitamin D3) 50,000 unit QFR PO 02/15/21 16:00 02/22/21 16:15 Clopidogrel Bisulfate (Plavix) 75 mg DAILY PO 02/13/21 09:00 02/22/21 08:39 Divalproex Sodium (Depakote Sprinkles) 375 mg TID@0900,1300,1700 PO 02/12/21 13:00 02/13/21 15:22 DC 02/13/21 12:47 Ferrous Sulfate (Feosol) 325 mg BID PO 02/12/21 21:00 02/22/21 21:14 Furosemide (Lasix) 20 mg DAILY PO 02/13/21 09:00 02/22/21 08:38 Hydralazine HCl (Apresoline) 12.5 mg PRN Q6HRS PRN PO htn 02/12/21 12:15 Insulin Glargine (Lantus Syringe) 50 unit HS SQ 02/12/21 21:00 02/22/21 21:11 Lisinopril (Prinivil) 20 mg BID PO 02/12/21 21:00 02/22/21 21:14 Multivitamins/ Calcium (Thera-M Plus) 1 tab DAILY PO 02/13/21 09:00 02/22/21 08:38 Ondansetron HCl (Zofran Odt) 4 mg PRN Q6HRS PRN PO NAUSEA/VOMITING 02/12/21 12:15 Prazosin HCl (Minipress) 5 mg BID PO 02/12/21 21:00 02/22/21 21:13 Quetiapine Fumarate (SEROquel) 50 mg DAILY PO 02/13/21 09:00 02/14/21 18:03 DC 02/14/21 05:31 Sodium Chloride (Saline Mist Nasal) 1 abby BID NS 02/12/21 21:00 02/22/21 21:12 Carvedilol (Coreg) 25 mg BIDWMEALS PO 02/12/21 17:00 02/22/21 08:40 Diltiazem HCl (Cardizem) 60 mg TID PO 02/12/21 14:00 02/22/21 21:12 Galantamine Hydrobromide (Razadyne) 4 mg BID PO 02/12/21 21:00 02/22/21 21:15 Glucagon (Glucagen Kit) 1 mg PRN Q15MIN PRN IM LOW BLOOD SUGAR 02/12/21 13:15 Non-Formulary Medication (Insulin Aspart (Novolog)) 70-150 Give 0 un... TIDWMEALS SQ 02/12/21 17:00 02/13/21 17:11 DC Loperamide HCl (Imodium) 2 mg PRN Q2HRS PRN PO DIARRHEA 02/12/21 13:15 Non-Formulary Medication (Methyl Salicylate/ Menthol (Analgesic [place])) 1 abby PRN QID PRN TP MUSCLE PAIN 02/12/21 12:15 02/12/21 13:14 DC Artificial Tears (Refresh Classic) 2 drop PRN QID PRN OU DRY EYE 02/12/21 13:15 Linagliptin (Tradjenta) 5 mg DAILY16 PO 02/12/21 16:00 02/22/21 16:15 Olanzapine (ZyPREXA ZYDIS) 5 mg PRN Q2HR PRN PO PSYCHOSIS 02/12/21 12:30 02/22/21 21:14 Divalproex Sodium (Depakote Sprinkles) 375 mg 1300 PO 02/14/21 13:00 02/17/21 18:55 DC 02/17/21 12:24 Divalproex Sodium (Depakote Sprinkles) 500 mg 0900,1700 PO 02/13/21 17:00 02/17/21 18:55 DC 02/17/21 17:00 Insulin Human Lispro (HumaLOG) 0-9 UNITS TIDWMEALS SQ 02/14/21 08:00 02/22/21 12:46 Quetiapine Fumarate (SEROquel) 50 mg HS PO 02/15/21 21:00 02/21/21 20:28 DC 02/20/21 20:03 Quetiapine Fumarate (SEROquel) 25 mg DAILY08 PO 02/15/21 08:00 02/19/21 17:48 DC 02/19/21 08:47 Divalproex Sodium (Depakote Sprinkles) 500 mg TID PO 02/18/21 08:00 02/22/21 21:16 Quetiapine Fumarate (SEROquel) 25 mg 0900,1300 PO 02/20/21 09:00 02/22/21 13:05 Trazodone HCl (Desyrel) 100 mg PRN QHS PRN PO INSOMNIA, FEBRUARY REPEAT X1 02/20/21 18:00 02/22/21 21:15 Quetiapine Fumarate (SEROquel) 75 mg HS PO 02/21/21 21:00 02/22/21 21:15 I have reviewed the current psychotropics carefully including drug interactions. Risk benefit ratio favors no change other than as noted in my dictated progress note. Diagnosis: Problems: (1) Dementia in Alzheimer's disease with depression (2) Dementia in Alzheimer's disease with delusions (3) Major neurocognitive disorder (4) Dementia in Alzheimer's disease with early onset with behavioral disturbance (5) Dementia, vascular, with delusions (6) Anxiety disorder (7) Dementia, vascular, with depression (8) Impulse control disorder DEAN GARDNER MD February 23, 2021 07:47
[2021-02-23] MEDS: CARVEDILOL 12.5 MG TABLET PO SCH ×2 (08:00→10:36)
[2021-02-23] MEDS: INSULIN LISPRO 300 UNITS/3 ML VIAL. SQ SCH ×3 (08:00→17:00)
--- NOTE | 2021-02-23 08:28 | PDOC ---
Exam Note: [place] Note: This note is a late entry for 02/21/2021 covers elements not covered in my initial note. Subjective: The patient was reviewed in the morning of 02/21/2021 for a treatment team meeting with Karen Jo, Hamida Spain and Morena (social services director), Vira, activity therapy and Anabelle KWOK, discussed and reviewed the chart. He slept 5 hours previous night. The patient remains disorganized, pleasant at times, attended one group. He has been paranoid that one of the other bipolar patients will kill him. Valproic acid level is therapeutic at 66. Review of Systems: Ambulation impaired in wheelchair. No CV, , pulmonary, eye, ENT system symptoms on review. Mental Status Exam: The patient is oriented to himself. Insight and judgment, recent and remote memory, attention and concentration, fund of knowledge is poor consistent with his diagnoses. Laboratory Data: Reviewed. Impression: Major neurocognitive disorder Alzheimer vascular with delusion, depression, behavioral disturbance. Anxiety disorder unspecified. Impulse control disorder unspecified. Plan: No change from initial note. The patient is currently on Seroquel 25 mg daily and 1 p.m., 50 mg h.s. We will increase the h.s. dosage to 75 mg for now. Assessment: Vital Signs/I&O: Vital Signs Date Time Temp Pulse Resp B/P (MAP) Pulse Ox O2 Delivery O2 Flow Rate FiO2 02/23/21 06:46 97.2 65 15 142/81 (101) 98 02/22/21 16:02 Room Air I & O 02/22/21 02/22/21 02/23/21 15:00 23:00 07:00 Intake Total 360 ml 360 ml Balance 360 ml 360 ml Labs: Laboratory Tests Test 02/22/21 11:56 02/22/21 17:04 02/22/21 19:18 02/23/21 07:30 Glucose (Fingerstick) 169 mg/dL (70-99) H 142 mg/dL (70-99) H 214 mg/dL (70-99) H 73 mg/dL (70-99) Current Medications: Meds: Laboratory Tests Test 02/22/21 11:56 02/22/21 17:04 02/22/21 19:18 02/23/21 07:30 Glucose (Fingerstick) 169 mg/dL 142 mg/dL 214 mg/dL 73 mg/dL Current Medications Medications (Trade) Dose Ordered Sig/Romeo Route PRN Reason Start Time Stop Time Status Last Admin Dose Admin Hydralazine HCl (Apresoline) 20 mg 1X ONCE IV 02/12/21 02:30 02/12/21 02:24 DC Hydralazine HCl (Apresoline) 10 mg 1X ONCE IV 02/12/21 02:30 02/12/21 02:31 DC 02/12/21 02:35 Hydralazine HCl (Apresoline) 10 mg 1X ONCE IV 02/12/21 03:15 02/12/21 03:16 DC 02/12/21 03:21 Midazolam HCl (Versed) 2.5 mg 1X ONCE IV 02/12/21 05:00 02/12/21 05:01 DC 02/12/21 04:53 Acetaminophen (Tylenol) 650 mg PRN Q6HRS PRN PO MILD PAIN / TEMP > 100.3'F 02/12/21 10:00 02/18/21 22:22 Multi-Ingredient Ointment (Analgesic [place]) 1 abby PRN QID PRN TP MUSCLE PAIN 02/12/21 10:00 Al Hydroxide/Mg Hydroxide (Mylanta Plus Xs) 15 ml PRN AFTMEALHC PRN PO DYSPEPSIA 02/12/21 10:00 Magnesium Hydroxide (Milk Of Magnesia) 2,400 mg PRN QHS PRN PO CONSTIPATION 02/12/21 10:00 Acetaminophen (Tylenol) 650 mg PRN Q6HRS PRN PO MILD PAIN / TEMP > 100.3'F 02/12/21 12:15 Cancel Albuterol Sulfate (Ventolin) 2.5 mg PRN Q6HRS PRN INH SHORTNESS OF BREATH 02/12/21 12:15 Aspirin (Aspirin Enteric Coated) 81 mg DAILY PO 02/13/21 09:00 02/22/21 08:38 Atorvastatin Calcium (Lipitor) 20 mg QHS PO 02/12/21 21:00 02/22/21 21:13 Buspirone HCl (Buspar) 5 mg BID PO 02/12/21 21:00 02/22/21 21:12 Vitamin D (Vitamin D3) 50,000 unit QFR PO 02/15/21 16:00 02/22/21 16:15 Clopidogrel Bisulfate (Plavix) 75 mg DAILY PO 02/13/21 09:00 02/22/21 08:39 Divalproex Sodium (Depakote Sprinkles) 375 mg TID@0900,1300,1700 PO 02/12/21 13:00 02/13/21 15:22 DC 02/13/21 12:47 Ferrous Sulfate (Feosol) 325 mg BID PO 02/12/21 21:00 02/22/21 21:14 Furosemide (Lasix) 20 mg DAILY PO 02/13/21 09:00 02/22/21 08:38 Hydralazine HCl (Apresoline) 12.5 mg PRN Q6HRS PRN PO htn 02/12/21 12:15 Insulin Glargine (Lantus Syringe) 50 unit HS SQ 02/12/21 21:00 02/22/21 21:11 Lisinopril (Prinivil) 20 mg BID PO 02/12/21 21:00 02/22/21 21:14 Multivitamins/ Calcium (Thera-M Plus) 1 tab DAILY PO 02/13/21 09:00 02/22/21 08:38 Ondansetron HCl (Zofran Odt) 4 mg PRN Q6HRS PRN PO NAUSEA/VOMITING 02/12/21 12:15 Prazosin HCl (Minipress) 5 mg BID PO 02/12/21 21:00 02/22/21 21:13 Quetiapine Fumarate (SEROquel) 50 mg DAILY PO 02/13/21 09:00 02/14/21 18:03 DC 02/14/21 05:31 Sodium Chloride (Saline Mist Nasal) 1 abby BID NS 02/12/21 21:00 02/22/21 21:12 Carvedilol (Coreg) 25 mg BIDWMEALS PO 02/12/21 17:00 02/22/21 08:40 Diltiazem HCl (Cardizem) 60 mg TID PO 02/12/21 14:00 02/22/21 21:12 Galantamine Hydrobromide (Razadyne) 4 mg BID PO 02/12/21 21:00 02/22/21 21:15 Glucagon (Glucagen Kit) 1 mg PRN Q15MIN PRN IM LOW BLOOD SUGAR 02/12/21 13:15 Non-Formulary Medication (Insulin Aspart (Novolog)) 70-150 Give 0 un... TIDWMEALS SQ 02/12/21 17:00 02/13/21 17:11 DC Loperamide HCl (Imodium) 2 mg PRN Q2HRS PRN PO DIARRHEA 02/12/21 13:15 Non-Formulary Medication (Methyl Salicylate/ Menthol (Analgesic [place])) 1 abby PRN QID PRN TP MUSCLE PAIN 02/12/21 12:15 02/12/21 13:14 DC Artificial Tears (Refresh Classic) 2 drop PRN QID PRN OU DRY EYE 02/12/21 13:15 Linagliptin (Tradjenta) 5 mg DAILY16 PO 02/12/21 16:00 02/22/21 16:15 Olanzapine (ZyPREXA ZYDIS) 5 mg PRN Q2HR PRN PO PSYCHOSIS 02/12/21 12:30 02/22/21 21:14 Divalproex Sodium (Depakote Sprinkles) 375 mg 1300 PO 02/14/21 13:00 02/17/21 18:55 DC 02/17/21 12:24 Divalproex Sodium (Depakote Sprinkles) 500 mg 0900,1700 PO 02/13/21 17:00 02/17/21 18:55 DC 02/17/21 17:00 Insulin Human Lispro (HumaLOG) 0-9 UNITS TIDWMEALS SQ 02/14/21 08:00 02/22/21 12:46 Quetiapine Fumarate (SEROquel) 50 mg HS PO 02/15/21 21:00 02/21/21 20:28 DC 02/20/21 20:03 Quetiapine Fumarate (SEROquel) 25 mg DAILY08 PO 02/15/21 08:00 02/19/21 17:48 DC 02/19/21 08:47 Divalproex Sodium (Depakote Sprinkles) 500 mg TID PO 02/18/21 08:00 02/22/21 21:16 Quetiapine Fumarate (SEROquel) 25 mg 0900,1300 PO 02/20/21 09:00 02/22/21 13:05 Trazodone HCl (Desyrel) 100 mg PRN QHS PRN PO INSOMNIA, FEBRUARY REPEAT X1 02/20/21 18:00 02/22/21 21:15 Quetiapine Fumarate (SEROquel) 75 mg HS PO 02/21/21 21:00 02/22/21 21:15 I have reviewed the current psychotropics carefully including drug interactions. Risk benefit ratio favors no change other than as noted in my dictated progress note. Diagnosis: Problems: (1) Dementia in Alzheimer's disease with depression (2) Dementia in Alzheimer's disease with delusions (3) Major neurocognitive disorder (4) Dementia in Alzheimer's disease with early onset with behavioral disturbance (5) Anxiety disorder (6) Dementia, vascular, with delusions (7) Dementia, vascular, with depression (8) Impulse control disorder DEAN GARDNER MD February 23, 2021 08:28
[2021-02-23] MEDS: busPIRone 5 MG TABLET. PO SCH ×2 (09:00→21:00)
[2021-02-23] MEDS: ASPIRIN ENTERIC COATED 81 MG TABLET.DR. PO SCH (09:00)
[2021-02-23] MEDS: MULTIVITAMIN with MINERAL TABLET. PO SCH (09:00)
[2021-02-23] MEDS: SODIUM CHLORIDE 0.65% NASAL SPRAY 45ML BOTTLE. NS SCH ×2 (09:00→21:00)
[2021-02-23] MEDS: QUEtiapine 25 MG TABLET. PO SCH ×3 (09:00→12:42)
[2021-02-23] MEDS: LISINOPRIL 10 MG TABLET PO SCH ×2 (09:00→21:00)
[2021-02-23] MEDS: CLOPIDOGREL BISULFATE 75 MG TABLET PO SCH (09:00)
[2021-02-23] MEDS: FERROUS SULFATE 325 MG TABLET. PO SCH ×2 (09:00→21:00)
[2021-02-23] MEDS: dilTIAZem HCL 30 MG TABLET PO SCH ×3 (09:00→21:00)
[2021-02-23] MEDS: FUROSEMIDE 20 MG TABLET PO SCH (09:00)
[2021-02-23] MEDS: DIVALPROEX 125 MG CAP.SPRINK PO SCH ×3 (09:00→21:00)
[2021-02-23] MEDS: PRAZOSIN 5 MG CAPSULE. PO SCH ×2 (09:00→21:00)
[2021-02-23] MEDS: GALANTAMINE 4 MG TABLET PO SCH ×2 (09:00→21:00)
[2021-02-23] MEDS: LINAGLIPTIN 5 MG TABLET PO SCH (10:36)
[2021-02-23] MEDS: ATORVASTATIN CALCIUM 20 MG TABLET PO SCH (10:36)
[2021-02-23 15:55] VITALS: BP 150/75
[2021-02-23] MEDS: INSULIN GLARGINE SYRINGE. SQ SCH (21:00)
--- NOTE | 2021-02-23 22:00 | PDOC ---
Exam Note: [place] Note: Please also refer to the separate dictated note~for this date of service dictated separately.~Patient seen individually. Discussed the patient with Nursing staff reviewed the chart.~Reviewed interim history and current functioning. Reviewed vital signs,~Labs/ Radiology~and current medications noted below. Continue current treatment with the changes noted in the dictated addendum note Assessment: Vital Signs/I&O: Vital Signs Date Time Temp Pulse Resp B/P (MAP) Pulse Ox O2 Delivery O2 Flow Rate FiO2 02/23/21 15:55 96.5 74 20 150/75 (100) 95 Room Air I & O 02/22/21 02/22/21 02/23/21 15:00 23:00 07:00 Intake Total 360 ml 360 ml Balance 360 ml 360 ml Labs: Laboratory Tests Test 02/23/21 07:30 02/23/21 11:48 02/23/21 17:00 02/23/21 19:35 Glucose (Fingerstick) 73 mg/dL (70-99) 66 mg/dL (70-99) L 139 mg/dL (70-99) H 152 mg/dL (70-99) H Current Medications: Meds: Laboratory Tests Test 02/23/21 07:30 02/23/21 11:48 02/23/21 17:00 02/23/21 19:35 Glucose (Fingerstick) 73 mg/dL 66 mg/dL 139 mg/dL 152 mg/dL Current Medications Medications (Trade) Dose Ordered Sig/Romeo Route PRN Reason Start Time Stop Time Status Last Admin Dose Admin Hydralazine HCl (Apresoline) 20 mg 1X ONCE IV 02/12/21 02:30 02/12/21 02:24 DC Hydralazine HCl (Apresoline) 10 mg 1X ONCE IV 02/12/21 02:30 02/12/21 02:31 DC 02/12/21 02:35 Hydralazine HCl (Apresoline) 10 mg 1X ONCE IV 02/12/21 03:15 02/12/21 03:16 DC 02/12/21 03:21 Midazolam HCl (Versed) 2.5 mg 1X ONCE IV 02/12/21 05:00 02/12/21 05:01 DC 02/12/21 04:53 Acetaminophen (Tylenol) 650 mg PRN Q6HRS PRN PO MILD PAIN / TEMP > 100.3'F 02/12/21 10:00 02/18/21 22:22 Multi-Ingredient Ointment (Analgesic [place]) 1 abby PRN QID PRN TP MUSCLE PAIN 02/12/21 10:00 Al Hydroxide/Mg Hydroxide (Mylanta Plus Xs) 15 ml PRN AFTMEALHC PRN PO DYSPEPSIA 02/12/21 10:00 Magnesium Hydroxide (Milk Of Magnesia) 2,400 mg PRN QHS PRN PO CONSTIPATION 02/12/21 10:00 Acetaminophen (Tylenol) 650 mg PRN Q6HRS PRN PO MILD PAIN / TEMP > 100.3'F 02/12/21 12:15 Cancel Albuterol Sulfate (Ventolin) 2.5 mg PRN Q6HRS PRN INH SHORTNESS OF BREATH 02/12/21 12:15 Aspirin (Aspirin Enteric Coated) 81 mg DAILY PO 02/13/21 09:00 02/22/21 08:38 Atorvastatin Calcium (Lipitor) 20 mg QHS PO 02/12/21 21:00 02/22/21 21:13 Buspirone HCl (Buspar) 5 mg BID PO 02/12/21 21:00 02/22/21 21:12 Vitamin D (Vitamin D3) 50,000 unit QFR PO 02/15/21 16:00 02/22/21 16:15 Clopidogrel Bisulfate (Plavix) 75 mg DAILY PO 02/13/21 09:00 02/22/21 08:39 Divalproex Sodium (Depakote Sprinkles) 375 mg TID@0900,1300,1700 PO 02/12/21 13:00 02/13/21 15:22 DC 02/13/21 12:47 Ferrous Sulfate (Feosol) 325 mg BID PO 02/12/21 21:00 02/22/21 21:14 Furosemide (Lasix) 20 mg DAILY PO 02/13/21 09:00 02/22/21 08:38 Hydralazine HCl (Apresoline) 12.5 mg PRN Q6HRS PRN PO htn 02/12/21 12:15 Insulin Glargine (Lantus Syringe) 50 unit HS SQ 02/12/21 21:00 02/22/21 21:11 Lisinopril (Prinivil) 20 mg BID PO 02/12/21 21:00 02/22/21 21:14 Multivitamins/ Calcium (Thera-M Plus) 1 tab DAILY PO 02/13/21 09:00 02/22/21 08:38 Ondansetron HCl (Zofran Odt) 4 mg PRN Q6HRS PRN PO NAUSEA/VOMITING 02/12/21 12:15 Prazosin HCl (Minipress) 5 mg BID PO 02/12/21 21:00 02/22/21 21:13 Quetiapine Fumarate (SEROquel) 50 mg DAILY PO 02/13/21 09:00 02/14/21 18:03 DC 02/14/21 05:31 Sodium Chloride (Saline Mist Nasal) 1 abby BID NS 02/12/21 21:00 02/22/21 21:12 Carvedilol (Coreg) 25 mg BIDWMEALS PO 02/12/21 17:00 02/22/21 08:40 Diltiazem HCl (Cardizem) 60 mg TID PO 02/12/21 14:00 02/23/21 12:41 Galantamine Hydrobromide (Razadyne) 4 mg BID PO 02/12/21 21:00 02/22/21 21:15 Glucagon (Glucagen Kit) 1 mg PRN Q15MIN PRN IM LOW BLOOD SUGAR 02/12/21 13:15 Non-Formulary Medication (Insulin Aspart (Novolog)) 70-150 Give 0 un... TIDWMEALS SQ 02/12/21 17:00 02/13/21 17:11 DC Loperamide HCl (Imodium) 2 mg PRN Q2HRS PRN PO DIARRHEA 02/12/21 13:15 Non-Formulary Medication (Methyl Salicylate/ Menthol (Analgesic [place])) 1 abby PRN QID PRN TP MUSCLE PAIN 02/12/21 12:15 02/12/21 13:14 DC Artificial Tears (Refresh Classic) 2 drop PRN QID PRN OU DRY EYE 02/12/21 13:15 Linagliptin (Tradjenta) 5 mg DAILY16 PO 02/12/21 16:00 02/22/21 16:15 Olanzapine (ZyPREXA ZYDIS) 5 mg PRN Q2HR PRN PO PSYCHOSIS 4/20/21 12:30 02/22/21 21:14 Divalproex Sodium (Depakote Sprinkles) 375 mg 1300 PO 02/14/21 13:00 02/17/21 18:55 DC 02/17/21 12:24 Divalproex Sodium (Depakote Sprinkles) 500 mg 0900,1700 PO 02/13/21 17:00 02/17/21 18:55 DC 02/17/21 17:00 Insulin Human Lispro (HumaLOG) 0-9 UNITS TIDWMEALS SQ 02/14/21 08:00 02/22/21 12:46 Quetiapine Fumarate (SEROquel) 50 mg HS PO 02/15/21 21:00 02/21/21 20:28 DC 02/20/21 20:03 Quetiapine Fumarate (SEROquel) 25 mg DAILY08 PO 02/15/21 08:00 02/19/21 17:48 DC 02/19/21 08:47 Divalproex Sodium (Depakote Sprinkles) 500 mg TID PO 02/18/21 08:00 02/23/21 12:42 Quetiapine Fumarate (SEROquel) 25 mg 0900,1300 PO 02/20/21 09:00 02/23/21 12:42 Trazodone HCl (Desyrel) 100 mg PRN QHS PRN PO , February X1 02/20/21 18:00 02/22/21 21:15 Quetiapine Fumarate (SEROquel) 75 mg HS PO 02/21/21 21:00 02/22/21 21:15 I have reviewed the current psychotropics carefully including drug interactions. Risk benefit ratio favors no change other than as noted in my dictated progress note. Diagnosis: Problems: (1) Dementia in Alzheimer's disease with depression (2) Dementia in Alzheimer's disease with delusions (3) Major neurocognitive disorder (4) Dementia in Alzheimer's disease with early onset with behavioral disturbance (5) Dementia, vascular, with delusions (6) Anxiety disorder (7) Dementia, vascular, with depression (8) Impulse control disorder DEAN GARDNER MD February 23, 2021 22:00
[2021-02-24 06:32] VITALS: BP 153/80
[2021-02-24] MEDS: INSULIN LISPRO 300 UNITS/3 ML VIAL. SQ SCH ×3 (08:00→17:39)
[2021-02-24] MEDS: ASPIRIN ENTERIC COATED 81 MG TABLET.DR. PO SCH (08:09)
[2021-02-24] MEDS: CARVEDILOL 12.5 MG TABLET PO SCH ×2 (08:09→17:36)
[2021-02-24] MEDS: busPIRone 5 MG TABLET. PO SCH ×2 (08:09→20:17)
[2021-02-24] MEDS: QUEtiapine 25 MG TABLET. PO SCH ×3 (08:10→20:18)
[2021-02-24] MEDS: GALANTAMINE 4 MG TABLET PO SCH ×2 (08:10→20:17)
[2021-02-24] MEDS: dilTIAZem HCL 30 MG TABLET PO SCH ×3 (08:10→20:17)
[2021-02-24] MEDS: DIVALPROEX 125 MG CAP.SPRINK PO SCH ×3 (08:10→20:18)
[2021-02-24] MEDS: MULTIVITAMIN with MINERAL TABLET. PO SCH (08:10)
[2021-02-24] MEDS: FERROUS SULFATE 325 MG TABLET. PO SCH ×2 (08:11→20:17)
[2021-02-24] MEDS: PRAZOSIN 5 MG CAPSULE. PO SCH ×2 (08:11→20:17)
[2021-02-24] MEDS: FUROSEMIDE 20 MG TABLET PO SCH (08:11)
[2021-02-24] MEDS: CLOPIDOGREL BISULFATE 75 MG TABLET PO SCH (08:11)
[2021-02-24] MEDS: SODIUM CHLORIDE 0.65% NASAL SPRAY 45ML BOTTLE. NS SCH ×2 (08:11→20:18)
[2021-02-24] MEDS: LISINOPRIL 10 MG TABLET PO SCH ×2 (08:11→20:17)
[2021-02-24 16:22] VITALS: BP 160/73
[2021-02-24] MEDS: LINAGLIPTIN 5 MG TABLET PO SCH (17:36)
[2021-02-24] MEDS: ATORVASTATIN CALCIUM 20 MG TABLET PO SCH (20:17)
[2021-02-24] MEDS: traZODone 100 MG TABLET. PO PRN (20:18)
[2021-02-24] MEDS: INSULIN GLARGINE SYRINGE. SQ SCH (20:19)
--- NOTE | 2021-02-24 22:10 | PDOC ---
Exam Note: [place] Note: Please also refer to the separate dictated note~for this date of service dictated separately.~Patient seen individually. Discussed the patient with Nursing staff reviewed the chart.~Reviewed interim history and current functioning. Reviewed vital signs,~Labs/ Radiology~and current medications noted below. Continue current treatment with the changes noted in the dictated addendum note Assessment: Vital Signs/I&O: Vital Signs Date Time Temp Pulse Resp B/P (MAP) Pulse Ox O2 Delivery O2 Flow Rate FiO2 02/24/21 20:17 60 160/73 02/24/21 16:22 97.0 16 96 02/24/21 06:32 Room Air I & O 02/23/21 02/23/21 02/24/21 14:59 22:59 06:59 Intake Total 360 ml 240 ml 0 ml Balance 360 ml 240 ml 0 ml Labs: Laboratory Tests Test 02/24/21 07:50 02/24/21 12:17 02/24/21 19:25 Glucose (Fingerstick) 80 mg/dL (70-99) 142 mg/dL (70-99) H 188 mg/dL (70-99) H Current Medications: Meds: Laboratory Tests Test 02/24/21 07:50 02/24/21 12:17 02/24/21 19:25 Glucose (Fingerstick) 80 mg/dL 142 mg/dL 188 mg/dL Current Medications Medications (Trade) Dose Ordered Sig/Romeo Route PRN Reason Start Time Stop Time Status Last Admin Dose Admin Hydralazine HCl (Apresoline) 20 mg 1X ONCE IV 02/12/21 02:30 02/12/21 02:24 DC Hydralazine HCl (Apresoline) 10 mg 1X ONCE IV 02/12/21 02:30 02/12/21 02:31 DC 02/12/21 02:35 Hydralazine HCl (Apresoline) 10 mg 1X ONCE IV 02/12/21 03:15 02/12/21 03:16 DC 02/12/21 03:21 Midazolam HCl (Versed) 2.5 mg 1X ONCE IV 02/12/21 05:00 02/12/21 05:01 DC 02/12/21 04:53 Acetaminophen (Tylenol) 650 mg PRN Q6HRS PRN PO MILD PAIN / TEMP > 100.3'F 02/12/21 10:00 02/18/21 22:22 Multi-Ingredient Ointment (Analgesic [place]) 1 abby PRN QID PRN TP MUSCLE PAIN 02/12/21 10:00 Al Hydroxide/Mg Hydroxide (Mylanta Plus Xs) 15 ml PRN AFTMEALHC PRN PO DYSPEPSIA 02/12/21 10:00 Magnesium Hydroxide (Milk Of Magnesia) 2,400 mg PRN QHS PRN PO CONSTIPATION 02/12/21 10:00 Acetaminophen (Tylenol) 650 mg PRN Q6HRS PRN PO MILD PAIN / TEMP > 100.3'F 02/12/21 12:15 Cancel Albuterol Sulfate (Ventolin) 2.5 mg PRN Q6HRS PRN INH SHORTNESS OF BREATH 02/12/21 12:15 Aspirin (Aspirin Enteric Coated) 81 mg DAILY PO 02/13/21 09:00 02/24/21 08:09 Atorvastatin Calcium (Lipitor) 20 mg QHS PO 02/12/21 21:00 02/24/21 20:17 Buspirone HCl (Buspar) 5 mg BID PO 02/12/21 21:00 02/24/21 20:17 Vitamin D (Vitamin D3) 50,000 unit QFR PO 02/15/21 16:00 02/22/21 16:15 Clopidogrel Bisulfate (Plavix) 75 mg DAILY PO 02/13/21 09:00 02/24/21 08:11 Divalproex Sodium (Depakote Sprinkles) 375 mg TID@0900,1300,1700 PO 02/12/21 13:00 02/13/21 15:22 DC 02/13/21 12:47 Ferrous Sulfate (Feosol) 325 mg BID PO 02/12/21 21:00 02/24/21 20:17 Furosemide (Lasix) 20 mg DAILY PO 02/13/21 09:00 02/24/21 08:11 Hydralazine HCl (Apresoline) 12.5 mg PRN Q6HRS PRN PO htn 02/12/21 12:15 Insulin Glargine (Lantus Syringe) 50 unit HS SQ 02/12/21 21:00 02/24/21 20:19 Lisinopril (Prinivil) 20 mg BID PO 02/12/21 21:00 02/24/21 20:17 Multivitamins/ Calcium (Thera-M Plus) 1 tab DAILY PO 02/13/21 09:00 02/24/21 08:10 Ondansetron HCl (Zofran Odt) 4 mg PRN Q6HRS PRN PO NAUSEA/VOMITING 02/12/21 12:15 Prazosin HCl (Minipress) 5 mg BID PO 02/12/21 21:00 02/24/21 20:17 Quetiapine Fumarate (SEROquel) 50 mg DAILY PO 02/13/21 09:00 02/14/21 18:03 DC 02/14/21 05:31 Sodium Chloride (Saline Mist Nasal) 1 abby BID NS 02/12/21 21:00 02/24/21 20:18 Carvedilol (Coreg) 25 mg BIDWMEALS PO 02/12/21 17:00 02/24/21 17:36 Diltiazem HCl (Cardizem) 60 mg TID PO 02/12/21 14:00 02/24/21 20:17 Galantamine Hydrobromide (Razadyne) 4 mg BID PO 02/12/21 21:00 02/24/21 20:17 Glucagon (Glucagen Kit) 1 mg PRN Q15MIN PRN IM LOW BLOOD SUGAR 02/12/21 13:15 Non-Formulary Medication (Insulin Aspart (Novolog)) 70-150 Give 0 un... TIDWMEALS SQ 02/12/21 17:00 02/13/21 17:11 DC Loperamide HCl (Imodium) 2 mg PRN Q2HRS PRN PO DIARRHEA 02/12/21 13:15 Non-Formulary Medication (Methyl Salicylate/ Menthol (Analgesic [place])) 1 abby PRN QID PRN TP MUSCLE PAIN 02/12/21 12:15 02/12/21 13:14 DC Artificial Tears (Refresh Classic) 2 drop PRN QID PRN OU DRY EYE 02/12/21 13:15 Linagliptin (Tradjenta) 5 mg DAILY16 PO 02/12/21 16:00 02/24/21 17:36 Olanzapine (ZyPREXA ZYDIS) 5 mg PRN Q2HR PRN PO PSYCHOSIS 02/12/21 12:30 02/22/21 21:14 Divalproex Sodium (Depakote Sprinkles) 375 mg 1300 PO 02/14/21 13:00 02/17/21 18:55 DC 02/17/21 12:24 Divalproex Sodium (Depakote Sprinkles) 500 mg 0900,1700 PO 02/13/21 17:00 02/17/21 18:55 DC 02/17/21 17:00 Insulin Human Lispro (HumaLOG) 0-9 UNITS TIDWMEALS SQ 02/14/21 08:00 02/24/21 17:39 Quetiapine Fumarate (SEROquel) 50 mg HS PO 02/15/21 21:00 02/21/21 20:28 DC 02/20/21 20:03 Quetiapine Fumarate (SEROquel) 25 mg DAILY08 PO 02/15/21 08:00 02/19/21 17:48 DC 02/19/21 08:47 Divalproex Sodium (Depakote Sprinkles) 500 mg TID PO 02/18/21 08:00 02/24/21 20:18 Quetiapine Fumarate (SEROquel) 25 mg 0900,1300 PO 02/20/21 09:00 02/24/21 12:28 Trazodone HCl (Desyrel) 100 mg PRN QHS PRN PO , FEBRUARY REPEAT X1 02/20/21 18:00 02/24/21 20:18 Quetiapine Fumarate (SEROquel) 75 mg HS PO 02/21/21 21:00 02/24/21 20:18 I have reviewed the current psychotropics carefully including drug interactions. Risk benefit ratio favors no change other than as noted in my dictated progress note. Diagnosis: Problems: (1) Dementia in Alzheimer's disease with depression (2) Dementia in Alzheimer's disease with delusions (3) Dementia, vascular, with delusions (4) Dementia, vascular, with depression (5) Impulse control disorder (6) Anxiety disorder DEAN GARDNER MD February 24, 2021 22:10
[2021-02-25 06:15] VITALS: BP 183/82
--- NOTE | 2021-02-25 07:11 | PDOC ---
Exam Note: [place] Note: This note is a late entry for 02/22/2021 covers elements not covered in my initial note. Subjective: The patient was seen individually in the evening of 02/22/2021 with Clive KWOK, discussed and reviewed the chart. He slept 2-3/4 hours previous night. The patient has had no behaviors, compliant with medications. He still gets delusional, more confused in the evening. Review of Systems: Ambulation impaired in wheelchair. No CV, , pulmonary, eye, ENT system symptoms on review. Mental Status Exam: The patient is oriented to himself. I met with him ind ividually. He seemed to recognize me but in fact does not. Insight and judgment, recent and remote memory, attention and concentration, fund of knowledge is poor consistent with his diagnoses. No suicidal or homicidal ideation. He is easily distracted. Laboratory Data: Reviewed. Impression: Major neurocognitive disorder Alzheimer vascular with delusion, depression, behavioral disturbance. Anxiety disorder unspecified. Impulse control disorder unspecified. Plan: No change from initial note. Assessment: Vital Signs/I&O: Vital Signs Date Time Temp Pulse Resp B/P (MAP) Pulse Ox O2 Delivery O2 Flow Rate FiO2 02/25/21 06:15 96.4 68 15 183/82 (115) 97 02/24/21 06:32 Room Air I & O 02/24/21 02/24/21 02/25/21 15:00 23:00 07:00 Intake Total 840 ml 360 ml Balance 840 ml 360 ml Labs: Laboratory Tests Test 02/24/21 07:50 02/24/21 12:17 02/24/21 19:25 Glucose (Fingerstick) 80 mg/dL (70-99) 142 mg/dL (70-99) H 188 mg/dL (70-99) H Current Medications: Meds: Laboratory Tests Test 02/24/21 07:50 02/24/21 12:17 02/24/21 19:25 Glucose (Fingerstick) 80 mg/dL 142 mg/dL 188 mg/dL Current Medications Medications (Trade) Dose Ordered Sig/Romeo Route PRN Reason Start Time Stop Time Status Last Admin Dose Admin Hydralazine HCl (Apresoline) 20 mg 1X ONCE IV 02/12/21 02:30 02/12/21 02:24 DC Hydralazine HCl (Apresoline) 10 mg 1X ONCE IV 02/12/21 02:30 02/12/21 02:31 DC 02/12/21 02:35 Hydralazine HCl (Apresoline) 10 mg 1X ONCE IV 02/12/21 03:15 02/12/21 03:16 DC 02/12/21 03:21 Midazolam HCl (Versed) 2.5 mg 1X ONCE IV 02/12/21 05:00 02/12/21 05:01 DC 02/12/21 04:53 Acetaminophen (Tylenol) 650 mg PRN Q6HRS PRN PO MILD PAIN / TEMP > 100.3'F 02/12/21 10:00 02/18/21 22:22 Multi-Ingredient Ointment (Analgesic [place]) 1 abby PRN QID PRN TP MUSCLE PAIN 02/12/21 10:00 Al Hydroxide/Mg Hydroxide (Mylanta Plus Xs) 15 ml PRN AFTMEALHC PRN PO DYSPEPSIA 02/12/21 10:00 Magnesium Hydroxide (Milk Of Magnesia) 2,400 mg PRN QHS PRN PO CONSTIPATION 02/12/21 10:00 Acetaminophen (Tylenol) 650 mg PRN Q6HRS PRN PO MILD PAIN / TEMP > 100.3'F 02/12/21 12:15 Cancel Albuterol Sulfate (Ventolin) 2.5 mg PRN Q6HRS PRN INH SHORTNESS OF BREATH 02/12/21 12:15 Aspirin (Aspirin Enteric Coated) 81 mg DAILY PO 02/13/21 09:00 02/24/21 08:09 Atorvastatin Calcium (Lipitor) 20 mg QHS PO 02/12/21 21:00 02/24/21 20:17 Buspirone HCl (Buspar) 5 mg BID PO 02/12/21 21:00 02/24/21 20:17 Vitamin D (Vitamin D3) 50,000 unit QFR PO 02/15/21 16:00 02/22/21 16:15 Clopidogrel Bisulfate (Plavix) 75 mg DAILY PO 02/13/21 09:00 02/24/21 08:11 Divalproex Sodium (Depakote Sprinkles) 375 mg TID@0900,1300,1700 PO 02/12/21 13:00 02/13/21 15:22 DC 02/13/21 12:47 Ferrous Sulfate (Feosol) 325 mg BID PO 02/12/21 21:00 02/24/21 20:17 Furosemide (Lasix) 20 mg DAILY PO 02/13/21 09:00 02/24/21 08:11 Hydralazine HCl (Apresoline) 12.5 mg PRN Q6HRS PRN PO htn 02/12/21 12:15 Insulin Glargine (Lantus Syringe) 50 unit HS SQ 02/12/21 21:00 02/24/21 20:19 Lisinopril (Prinivil) 20 mg BID PO 02/12/21 21:00 02/24/21 20:17 Multivitamins/ Calcium (Thera-M Plus) 1 tab DAILY PO 02/13/21 09:00 02/24/21 08:10 Ondansetron HCl (Zofran Odt) 4 mg PRN Q6HRS PRN PO NAUSEA/VOMITING 02/12/21 12:15 Prazosin HCl (Minipress) 5 mg BID PO 02/12/21 21:00 02/24/21 20:17 Quetiapine Fumarate (SEROquel) 50 mg DAILY PO 02/13/21 09:00 02/14/21 18:03 DC 02/14/21 05:31 Sodium Chloride (Saline Mist Nasal) 1 abby BID NS 02/12/21 21:00 02/24/21 20:18 Carvedilol (Coreg) 25 mg BIDWMEALS PO 02/12/21 17:00 02/24/21 17:36 Diltiazem HCl (Cardizem) 60 mg TID PO 02/12/21 14:00 02/24/21 20:17 Galantamine Hydrobromide (Razadyne) 4 mg BID PO 02/12/21 21:00 02/24/21 20:17 Glucagon (Glucagen Kit) 1 mg PRN Q15MIN PRN IM LOW BLOOD SUGAR 02/12/21 13:15 Non-Formulary Medication (Insulin Aspart (Novolog)) 70-150 Give 0 un... TIDWMEALS SQ 02/12/21 17:00 02/13/21 17:11 DC Loperamide HCl (Imodium) 2 mg PRN Q2HRS PRN PO DIARRHEA 02/12/21 13:15 Non-Formulary Medication (Methyl Salicylate/ Menthol (Analgesic [place])) 1 abby PRN QID PRN TP MUSCLE PAIN 02/12/21 12:15 02/12/21 13:14 DC Artificial Tears (Refresh Classic) 2 drop PRN QID PRN OU DRY EYE 02/12/21 13:15 Linagliptin (Tradjenta) 5 mg DAILY16 PO 02/12/21 16:00 02/24/21 17:36 Olanzapine (ZyPREXA ZYDIS) 5 mg PRN Q2HR PRN PO PSYCHOSIS 02/12/21 12:30 02/25/21 02:14 Divalproex Sodium (Depakote Sprinkles) 375 mg 1300 PO 02/14/21 13:00 02/17/21 18:55 DC 02/17/21 12:24 Divalproex Sodium (Depakote Sprinkles) 500 mg 0900,1700 PO 02/13/21 17:00 02/17/21 18:55 DC 02/17/21 17:00 Insulin Human Lispro (HumaLOG) 0-9 UNITS TIDWMEALS SQ 02/14/21 08:00 02/24/21 17:39 Quetiapine Fumarate (SEROquel) 50 mg HS PO 02/15/21 21:00 02/21/21 20:28 DC 02/20/21 20:03 Quetiapine Fumarate (SEROquel) 25 mg DAILY08 PO 02/15/21 08:00 02/19/21 17:48 DC 02/19/21 08:47 Divalproex Sodium (Depakote Sprinkles) 500 mg TID PO 02/18/21 08:00 02/24/21 20:18 Quetiapine Fumarate (SEROquel) 25 mg 0900,1300 PO 02/20/21 09:00 02/24/21 12:28 Trazodone HCl (Desyrel) 100 mg PRN QHS PRN PO INSOMNIA, MAY REPEAT X1 02/20/21 18:00 02/24/21 20:18 Quetiapine Fumarate (SEROquel) 75 mg HS PO 02/21/21 21:00 02/24/21 20:18 I have reviewed the current psychotropics carefully including drug interactions. Risk benefit ratio favors no change other than as noted in my dictated progress note. Diagnosis: Problems: (1) Dementia in Alzheimer's disease with depression (2) Dementia in Alzheimer's disease with delusions (3) Major neurocognitive disorder (4) Dementia in Alzheimer's disease with early onset with behavioral disturbance (5) Anxiety disorder (6) Dementia, vascular, with delusions (7) Dementia, vascular, with depression (8) Impulse control disorder DEAN GARDNER MD February 25, 2021 07:11
--- NOTE | 2021-02-25 07:39 | PDOC ---
Exam Note: [place] Note: This note is a late entry for 02/23/2021 covers elements not covered in my initial note. Subjective: The patient was seen individually in the evening of 02/23/2021 with Clive KWOK, discussed and reviewed the chart. He slept 4-1/2 hours previous night. The patient was quite delusional previous night, slept through the morning, more anxious, restless, confused in the evening. Review of Systems: Ambulation impaired in wheelchair. No CV, , pulmonary, eye, ENT system symptoms on review. Mental Status Exam: The patient is oriented to himself. Insight and judgment, recent and remote memory, attention and concentration, fund of knowledge is poor consistent with his diagnoses. Laboratory Data: Reviewed. Impression: Major neurocognitive disorder Alzheimer vascular with delusion, depression, behavioral disturbance. Anxiety disorder unspecified. Impulse control disorder unspecified. Plan: No change from initial note. Assessment: Vital Signs/I&O: Vital Signs Date Time Temp Pulse Resp B/P (MAP) Pulse Ox O2 Delivery O2 Flow Rate FiO2 02/25/21 06:15 96.4 68 15 183/82 (115) 97 02/24/21 06:32 Room Air I & O 02/24/21 02/24/21 02/25/21 15:00 23:00 07:00 Intake Total 840 ml 360 ml Balance 840 ml 360 ml Labs: Laboratory Tests Test 02/24/21 07:50 02/24/21 12:17 02/24/21 19:25 Glucose (Fingerstick) 80 mg/dL (70-99) 142 mg/dL (70-99) H 188 mg/dL (70-99) H Current Medications: Meds: Laboratory Tests Test 02/24/21 07:50 02/24/21 12:17 02/24/21 19:25 Glucose (Fingerstick) 80 mg/dL 142 mg/dL 188 mg/dL Current Medications Medications (Trade) Dose Ordered Sig/Romeo Route PRN Reason Start Time Stop Time Status Last Admin Dose Admin Hydralazine HCl (Apresoline) 20 mg 1X ONCE IV 02/12/21 02:30 02/12/21 02:24 DC Hydralazine HCl (Apresoline) 10 mg 1X ONCE IV 02/12/21 02:30 02/12/21 02:31 DC 02/12/21 02:35 Hydralazine HCl (Apresoline) 10 mg 1X ONCE IV 02/12/21 03:15 02/12/21 03:16 DC 02/12/21 03:21 Midazolam HCl (Versed) 2.5 mg 1X ONCE IV 02/12/21 05:00 02/12/21 05:01 DC 02/12/21 04:53 Acetaminophen (Tylenol) 650 mg PRN Q6HRS PRN PO MILD PAIN / TEMP > 100.3'F 02/12/21 10:00 02/18/21 22:22 Multi-Ingredient Ointment (Analgesic [place]) 1 abby PRN QID PRN TP MUSCLE PAIN 02/12/21 10:00 Al Hydroxide/Mg Hydroxide (Mylanta Plus Xs) 15 ml PRN AFTMEALHC PRN PO DYSPEPSIA 02/12/21 10:00 Magnesium Hydroxide (Milk Of Magnesia) 2,400 mg PRN QHS PRN PO CONSTIPATION 02/12/21 10:00 Acetaminophen (Tylenol) 650 mg PRN Q6HRS PRN PO MILD PAIN / TEMP > 100.3'F 02/12/21 12:15 Cancel Albuterol Sulfate (Ventolin) 2.5 mg PRN Q6HRS PRN INH SHORTNESS OF BREATH 02/12/21 12:15 Aspirin (Aspirin Enteric Coated) 81 mg DAILY PO 02/13/21 09:00 02/24/21 08:09 Atorvastatin Calcium (Lipitor) 20 mg QHS PO 02/12/21 21:00 02/24/21 20:17 Buspirone HCl (Buspar) 5 mg BID PO 02/12/21 21:00 02/24/21 20:17 Vitamin D (Vitamin D3) 50,000 unit QFR PO 02/15/21 16:00 02/22/21 16:15 Clopidogrel Bisulfate (Plavix) 75 mg DAILY PO 02/13/21 09:00 02/24/21 08:11 Divalproex Sodium (Depakote Sprinkles) 375 mg TID@0900,1300,1700 PO 02/12/21 13:00 02/13/21 15:22 DC 02/13/21 12:47 Ferrous Sulfate (Feosol) 325 mg BID PO 02/12/21 21:00 02/24/21 20:17 Furosemide (Lasix) 20 mg DAILY PO 02/13/21 09:00 02/24/21 08:11 Hydralazine HCl (Apresoline) 12.5 mg PRN Q6HRS PRN PO htn 02/12/21 12:15 Insulin Glargine (Lantus Syringe) 50 unit HS SQ 02/12/21 21:00 02/24/21 20:19 Lisinopril (Prinivil) 20 mg BID PO 02/12/21 21:00 02/24/21 20:17 Multivitamins/ Calcium (Thera-M Plus) 1 tab DAILY PO 02/13/21 09:00 02/24/21 08:10 Ondansetron HCl (Zofran Odt) 4 mg PRN Q6HRS PRN PO NAUSEA/VOMITING 02/12/21 12:15 Prazosin HCl (Minipress) 5 mg BID PO 02/12/21 21:00 02/24/21 20:17 Quetiapine Fumarate (SEROquel) 50 mg DAILY PO 02/13/21 09:00 02/14/21 18:03 DC 02/14/21 05:31 Sodium Chloride (Saline Mist Nasal) 1 abby BID NS 02/12/21 21:00 02/24/21 20:18 Carvedilol (Coreg) 25 mg BIDWMEALS PO 02/12/21 17:00 02/24/21 17:36 Diltiazem HCl (Cardizem) 60 mg TID PO 02/12/21 14:00 02/24/21 20:17 Galantamine Hydrobromide (Razadyne) 4 mg BID PO 02/12/21 21:00 02/24/21 20:17 Glucagon (Glucagen Kit) 1 mg PRN Q15MIN PRN IM LOW BLOOD SUGAR 02/12/21 13:15 Non-Formulary Medication (Insulin Aspart (Novolog)) 70-150 Give 0 un... TIDWMEALS SQ 02/12/21 17:00 02/13/21 17:11 DC Loperamide HCl (Imodium) 2 mg PRN Q2HRS PRN PO DIARRHEA 02/12/21 13:15 Non-Formulary Medication (Methyl Salicylate/ Menthol (Analgesic [place])) 1 abby PRN QID PRN TP MUSCLE PAIN 02/12/21 12:15 02/12/21 13:14 DC Artificial Tears (Refresh Classic) 2 drop PRN QID PRN OU DRY EYE 02/12/21 13:15 Linagliptin (Tradjenta) 5 mg DAILY16 PO 02/12/21 16:00 02/24/21 17:36 Olanzapine (ZyPREXA ZYDIS) 5 mg PRN Q2HR PRN PO PSYCHOSIS 02/12/21 12:30 02/25/21 02:14 Divalproex Sodium (Depakote Sprinkles) 375 mg 1300 PO 02/14/21 13:00 02/17/21 18:55 DC 02/17/21 12:24 Divalproex Sodium (Depakote Sprinkles) 500 mg 0900,1700 PO 02/13/21 17:00 02/17/21 18:55 DC 02/17/21 17:00 Insulin Human Lispro (HumaLOG) 0-9 UNITS TIDWMEALS SQ 02/14/21 08:00 02/24/21 17:39 Quetiapine Fumarate (SEROquel) 50 mg HS PO 02/15/21 21:00 02/21/21 20:28 DC 02/20/21 20:03 Quetiapine Fumarate (SEROquel) 25 mg DAILY08 PO 02/15/21 08:00 02/19/21 17:48 DC 02/19/21 08:47 Divalproex Sodium (Depakote Sprinkles) 500 mg TID PO 02/18/21 08:00 02/24/21 20:18 Quetiapine Fumarate (SEROquel) 25 mg 0900,1300 PO 02/20/21 09:00 02/24/21 12:28 Trazodone HCl (Desyrel) 100 mg PRN QHS PRN PO INSOMNIA, MAY REPEAT X1 02/20/21 18:00 02/24/21 20:18 Quetiapine Fumarate (SEROquel) 75 mg HS PO 02/21/21 21:00 02/24/21 20:18 I have reviewed the current psychotropics carefully including drug interactions. Risk benefit ratio favors no change other than as noted in my dictated progress note. Diagnosis: Problems: (1) Dementia in Alzheimer's disease with depression (2) Dementia in Alzheimer's disease with delusions (3) Major neurocognitive disorder (4) Dementia in Alzheimer's disease with early onset with behavioral disturbance (5) Anxiety disorder (6) Dementia, vascular, with delusions (7) Dementia, vascular, with depression (8) Impulse control disorder DEAN GARDNER MD February 25, 2021 07:39
[2021-02-25] MEDS: INSULIN LISPRO 300 UNITS/3 ML VIAL. SQ SCH ×3 (08:00→17:00)
--- NOTE | 2021-02-25 08:01 | PDOC ---
Exam Note: [place] Note: This note is a late entry for 02/24/2021 covers elements not covered in my initial note. Subjective: The patient was seen individually in the evening of 02/24/2021 with Anabelle KWOK, discussed and reviewed the chart. He slept 9-1/4 hours previous night. He has been hollering occasionally but much improved. Review of Systems: Ambulation impaired in wheelchair. No CV, , pulmonary, eye, ENT system symptoms on review. Mental Status Exam: The patient is oriented to himself. Insight and judgment, recent and remote memory, attention and concentration, fund of knowledge is poor consistent with his diagnoses. Laboratory Data: Reviewed. Impression: Major neurocognitive disorder Alzheimer vascular with delusion, depression, behavioral disturbance. Anxiety disorder unspecified. Impulse control disorder unspecified. Plan: No change from initial note. Assessment: Vital Signs/I&O: Vital Signs Date Time Temp Pulse Resp B/P (MAP) Pulse Ox O2 Delivery O2 Flow Rate FiO2 02/25/21 06:15 96.4 68 15 183/82 (115) 97 02/24/21 06:32 Room Air I & O 02/24/21 02/24/21 02/25/21 15:00 23:00 07:00 Intake Total 840 ml 360 ml Balance 840 ml 360 ml Labs: Laboratory Tests Test 02/24/21 12:17 02/24/21 19:25 02/25/21 07:46 Glucose (Fingerstick) 142 mg/dL (70-99) H 188 mg/dL (70-99) H 93 mg/dL (70-99) Current Medications: Meds: Laboratory Tests Test 02/24/21 12:17 02/24/21 19:25 02/25/21 07:46 Glucose (Fingerstick) 142 mg/dL 188 mg/dL 93 mg/dL Current Medications Medications (Trade) Dose Ordered Sig/Romeo Route PRN Reason Start Time Stop Time Status Last Admin Dose Admin Hydralazine HCl (Apresoline) 20 mg 1X ONCE IV 02/12/21 02:30 02/12/21 02:24 DC Hydralazine HCl (Apresoline) 10 mg 1X ONCE IV 02/12/21 02:30 02/12/21 02:31 DC 02/12/21 02:35 Hydralazine HCl (Apresoline) 10 mg 1X ONCE IV 02/12/21 03:15 02/12/21 03:16 DC 02/12/21 03:21 Midazolam HCl (Versed) 2.5 mg 1X ONCE IV 02/12/21 05:00 02/12/21 05:01 DC 02/12/21 04:53 Acetaminophen (Tylenol) 650 mg PRN Q6HRS PRN PO MILD PAIN / TEMP > 100.3'F 02/12/21 10:00 02/18/21 22:22 Multi-Ingredient Ointment (Analgesic [place]) 1 abby PRN QID PRN TP MUSCLE PAIN 02/12/21 10:00 Al Hydroxide/Mg Hydroxide (Mylanta Plus Xs) 15 ml PRN AFTMEALHC PRN PO DYSPEPSIA 02/12/21 10:00 Magnesium Hydroxide (Milk Of Magnesia) 2,400 mg PRN QHS PRN PO CONSTIPATION 02/12/21 10:00 Acetaminophen (Tylenol) 650 mg PRN Q6HRS PRN PO MILD PAIN / TEMP > 100.3'F 02/12/21 12:15 Cancel Albuterol Sulfate (Ventolin) 2.5 mg PRN Q6HRS PRN INH SHORTNESS OF BREATH 02/12/21 12:15 Aspirin (Aspirin Enteric Coated) 81 mg DAILY PO 02/13/21 09:00 02/24/21 08:09 Atorvastatin Calcium (Lipitor) 20 mg QHS PO 02/12/21 21:00 02/24/21 20:17 Buspirone HCl (Buspar) 5 mg BID PO 02/12/21 21:00 02/24/21 20:17 Vitamin D (Vitamin D3) 50,000 unit QFR PO 02/15/21 16:00 02/22/21 16:15 Clopidogrel Bisulfate (Plavix) 75 mg DAILY PO 02/13/21 09:00 02/24/21 08:11 Divalproex Sodium (Depakote Sprinkles) 375 mg TID@0900,1300,1700 PO 02/12/21 13:00 02/13/21 15:22 DC 02/13/21 12:47 Ferrous Sulfate (Feosol) 325 mg BID PO 02/12/21 21:00 02/24/21 20:17 Furosemide (Lasix) 20 mg DAILY PO 02/13/21 09:00 02/24/21 08:11 Hydralazine HCl (Apresoline) 12.5 mg PRN Q6HRS PRN PO htn 02/12/21 12:15 Insulin Glargine (Lantus Syringe) 50 unit HS SQ 02/12/21 21:00 02/24/21 20:19 Lisinopril (Prinivil) 20 mg BID PO 02/12/21 21:00 02/24/21 20:17 Multivitamins/ Calcium (Thera-M Plus) 1 tab DAILY PO 02/13/21 09:00 02/24/21 08:10 Ondansetron HCl (Zofran Odt) 4 mg PRN Q6HRS PRN PO NAUSEA/VOMITING 02/12/21 12:15 Prazosin HCl (Minipress) 5 mg BID PO 02/12/21 21:00 02/24/21 20:17 Quetiapine Fumarate (SEROquel) 50 mg DAILY PO 02/13/21 09:00 02/14/21 18:03 DC 02/14/21 05:31 Sodium Chloride (Saline Mist Nasal) 1 abby BID NS 02/12/21 21:00 02/24/21 20:18 Carvedilol (Coreg) 25 mg BIDWMEALS PO 02/12/21 17:00 02/24/21 17:36 Diltiazem HCl (Cardizem) 60 mg TID PO 02/12/21 14:00 02/24/21 20:17 Galantamine Hydrobromide (Razadyne) 4 mg BID PO 02/12/21 21:00 02/24/21 20:17 Glucagon (Glucagen Kit) 1 mg PRN Q15MIN PRN IM LOW BLOOD SUGAR 02/12/21 13:15 Non-Formulary Medication (Insulin Aspart (Novolog)) 70-150 Give 0 un... TIDWMEALS SQ 02/12/21 17:00 02/13/21 17:11 DC Loperamide HCl (Imodium) 2 mg PRN Q2HRS PRN PO DIARRHEA 02/12/21 13:15 Non-Formulary Medication (Methyl Salicylate/ Menthol (Analgesic [place])) 1 abby PRN QID PRN TP MUSCLE PAIN 02/12/21 12:15 02/12/21 13:14 DC Artificial Tears (Refresh Classic) 2 drop PRN QID PRN OU DRY EYE 02/12/21 13:15 Linagliptin (Tradjenta) 5 mg DAILY16 PO 02/12/21 16:00 02/24/21 17:36 Olanzapine (ZyPREXA ZYDIS) 5 mg PRN Q2HR PRN PO PSYCHOSIS 02/12/21 12:30 02/25/21 02:14 Divalproex Sodium (Depakote Sprinkles) 375 mg 1300 PO 02/14/21 13:00 02/17/21 18:55 DC 02/17/21 12:24 Divalproex Sodium (Depakote Sprinkles) 500 mg 0900,1700 PO 02/13/21 17:00 02/17/21 18:55 DC 02/17/21 17:00 Insulin Human Lispro (HumaLOG) 0-9 UNITS TIDWMEALS SQ 02/14/21 08:00 02/24/21 17:39 Quetiapine Fumarate (SEROquel) 50 mg HS PO 02/15/21 21:00 02/21/21 20:28 DC 02/20/21 20:03 Quetiapine Fumarate (SEROquel) 25 mg DAILY08 PO 02/15/21 08:00 02/19/21 17:48 DC 02/19/21 08:47 Divalproex Sodium (Depakote Sprinkles) 500 mg TID PO 02/18/21 08:00 02/24/21 20:18 Quetiapine Fumarate (SEROquel) 25 mg 0900,1300 PO 02/20/21 09:00 02/24/21 12:28 Trazodone HCl (Desyrel) 100 mg PRN QHS PRN PO INSOMNIA, MAY REPEAT X1 02/20/21 18:00 02/24/21 20:18 Quetiapine Fumarate (SEROquel) 75 mg HS PO 02/21/21 21:00 02/24/21 20:18 I have reviewed the current psychotropics carefully including drug interactions. Risk benefit ratio favors no change other than as noted in my dictated progress note. Diagnosis: Problems: (1) Dementia in Alzheimer's disease with depression (2) Dementia in Alzheimer's disease with delusions (3) Major neurocognitive disorder (4) Dementia in Alzheimer's disease with early onset with behavioral disturbance (5) Anxiety disorder (6) Dementia, vascular, with delusions (7) Dementia, vascular, with depression (8) Impulse control disorder DEAN GARDNER MD February 25, 2021 08:01
[2021-02-25] MEDS: SODIUM CHLORIDE 0.65% NASAL SPRAY 45ML BOTTLE. NS SCH ×2 (08:32→20:55)
[2021-02-25] MEDS: FUROSEMIDE 20 MG TABLET PO SCH (08:33)
[2021-02-25] MEDS: dilTIAZem HCL 30 MG TABLET PO SCH ×3 (08:33→20:55)
[2021-02-25] MEDS: MULTIVITAMIN with MINERAL TABLET. PO SCH (08:33)
[2021-02-25] MEDS: GALANTAMINE 4 MG TABLET PO SCH ×2 (08:33→20:55)
[2021-02-25] MEDS: CLOPIDOGREL BISULFATE 75 MG TABLET PO SCH (08:34)
[2021-02-25] MEDS: ASPIRIN ENTERIC COATED 81 MG TABLET.DR. PO SCH (08:34)
[2021-02-25] MEDS: QUEtiapine 25 MG TABLET. PO SCH ×3 (08:34→20:55)
[2021-02-25] MEDS: PRAZOSIN 5 MG CAPSULE. PO SCH ×2 (08:34→20:54)
[2021-02-25] MEDS: FERROUS SULFATE 325 MG TABLET. PO SCH ×2 (08:35→20:55)
[2021-02-25] MEDS: LISINOPRIL 10 MG TABLET PO SCH ×2 (08:35→20:55)
[2021-02-25] MEDS: DIVALPROEX 125 MG CAP.SPRINK PO SCH ×3 (08:35→20:55)
[2021-02-25] MEDS: busPIRone 5 MG TABLET. PO SCH ×2 (08:35→20:55)
[2021-02-25] MEDS: CARVEDILOL 12.5 MG TABLET PO SCH ×2 (08:35→17:00)
[2021-02-25 15:54] VITALS: BP 151/78
[2021-02-25] MEDS: LINAGLIPTIN 5 MG TABLET PO SCH (16:00)
[2021-02-25] MEDS: ATORVASTATIN CALCIUM 20 MG TABLET PO SCH (20:55)
[2021-02-25] MEDS: traZODone 100 MG TABLET. PO PRN (20:55)
[2021-02-25] MEDS: INSULIN GLARGINE SYRINGE. SQ SCH (21:11)
--- NOTE | 2021-02-25 22:01 | PDOC ---
Exam Note: [place] Note: Please also refer to the separate dictated note~for this date of service dictated separately.~Patient seen individually. Discussed the patient with Nursing staff reviewed the chart.~Reviewed interim history and current functioning. Reviewed vital signs,~Labs/ Radiology~and current medications noted below. Continue current treatment with the changes noted in the dictated addendum note Assessment: Vital Signs/I&O: Vital Signs Date Time Temp Pulse Resp B/P (MAP) Pulse Ox O2 Delivery O2 Flow Rate FiO2 02/25/21 20:55 61 151/78 02/25/21 15:54 97.1 20 97 02/24/21 06:32 Room Air I & O 02/24/21 02/24/21 02/25/21 15:00 23:00 07:00 Intake Total 840 ml 360 ml Balance 840 ml 360 ml Labs: Laboratory Tests Test 02/25/21 07:46 02/25/21 12:14 02/25/21 19:18 Glucose (Fingerstick) 93 mg/dL (70-99) 136 mg/dL (70-99) H 149 mg/dL (70-99) H Current Medications: Meds: Laboratory Tests Test 02/25/21 07:46 02/25/21 12:14 02/25/21 19:18 Glucose (Fingerstick) 93 mg/dL 136 mg/dL 149 mg/dL Current Medications Medications (Trade) Dose Ordered Sig/Romeo Route PRN Reason Start Time Stop Time Status Last Admin Dose Admin Hydralazine HCl (Apresoline) 20 mg 1X ONCE IV 02/12/21 02:30 02/12/21 02:24 DC Hydralazine HCl (Apresoline) 10 mg 1X ONCE IV 02/12/21 02:30 02/12/21 02:31 DC 02/12/21 02:35 Hydralazine HCl (Apresoline) 10 mg 1X ONCE IV 02/12/21 03:15 02/12/21 03:16 DC 02/12/21 03:21 Midazolam HCl (Versed) 2.5 mg 1X ONCE IV 02/12/21 05:00 02/12/21 05:01 DC 02/12/21 04:53 Acetaminophen (Tylenol) 650 mg PRN Q6HRS PRN PO MILD PAIN / TEMP > 100.3'F 02/12/21 10:00 02/18/21 22:22 Multi-Ingredient Ointment (Analgesic [place]) 1 abby PRN QID PRN TP MUSCLE PAIN 02/12/21 10:00 Al Hydroxide/Mg Hydroxide (Mylanta Plus Xs) 15 ml PRN AFTMEALHC PRN PO DYSPEPSIA 02/12/21 10:00 Magnesium Hydroxide (Milk Of Magnesia) 2,400 mg PRN QHS PRN PO CONSTIPATION 02/12/21 10:00 Acetaminophen (Tylenol) 650 mg PRN Q6HRS PRN PO MILD PAIN / TEMP > 100.3'F 02/12/21 12:15 Cancel Albuterol Sulfate (Ventolin) 2.5 mg PRN Q6HRS PRN INH SHORTNESS OF BREATH 02/12/21 12:15 Aspirin (Aspirin Enteric Coated) 81 mg DAILY PO 02/13/21 09:00 02/25/21 08:34 Atorvastatin Calcium (Lipitor) 20 mg QHS PO 02/12/21 21:00 02/25/21 20:55 Buspirone HCl (Buspar) 5 mg BID PO 02/12/21 21:00 02/25/21 20:55 Vitamin D (Vitamin D3) 50,000 unit QFR PO 02/15/21 16:00 02/22/21 16:15 Clopidogrel Bisulfate (Plavix) 75 mg DAILY PO 02/13/21 09:00 02/25/21 08:34 Divalproex Sodium (Depakote Sprinkles) 375 mg TID@0900,1300,1700 PO 02/12/21 13:00 02/13/21 15:22 DC 02/13/21 12:47 Ferrous Sulfate (Feosol) 325 mg BID PO 02/12/21 21:00 02/25/21 20:55 Furosemide (Lasix) 20 mg DAILY PO 02/13/21 09:00 02/25/21 08:33 Hydralazine HCl (Apresoline) 12.5 mg PRN Q6HRS PRN PO htn 02/12/21 12:15 Insulin Glargine (Lantus Syringe) 50 unit HS SQ 02/12/21 21:00 02/25/21 21:11 Lisinopril (Prinivil) 20 mg BID PO 02/12/21 21:00 02/25/21 20:55 Multivitamins/ Calcium (Thera-M Plus) 1 tab DAILY PO 02/13/21 09:00 02/25/21 08:33 Ondansetron HCl (Zofran Odt) 4 mg PRN Q6HRS PRN PO NAUSEA/VOMITING 02/12/21 12:15 Prazosin HCl (Minipress) 5 mg BID PO 02/12/21 21:00 02/25/21 20:54 Quetiapine Fumarate (SEROquel) 50 mg DAILY PO 02/13/21 09:00 02/14/21 18:03 DC 02/14/21 05:31 Sodium Chloride (Saline Mist Nasal) 1 abby BID NS 02/12/21 21:00 02/25/21 20:55 Carvedilol (Coreg) 25 mg BIDWMEALS PO 02/12/21 17:00 02/25/21 08:35 Diltiazem HCl (Cardizem) 60 mg TID PO 02/12/21 14:00 02/25/21 20:55 Galantamine Hydrobromide (Razadyne) 4 mg BID PO 02/12/21 21:00 02/25/21 20:55 Glucagon (Glucagen Kit) 1 mg PRN Q15MIN PRN IM LOW BLOOD SUGAR 02/12/21 13:15 Non-Formulary Medication (Insulin Aspart (Novolog)) 70-150 Give 0 un... TIDWMEALS SQ 02/12/21 17:00 02/13/21 17:11 DC Loperamide HCl (Imodium) 2 mg PRN Q2HRS PRN PO DIARRHEA 02/12/21 13:15 Non-Formulary Medication (Methyl Salicylate/ Menthol (Analgesic [place])) 1 abby PRN QID PRN TP MUSCLE PAIN 02/12/21 12:15 02/12/21 13:14 DC Artificial Tears (Refresh Classic) 2 drop PRN QID PRN OU DRY EYE 02/12/21 13:15 Linagliptin (Tradjenta) 5 mg DAILY16 PO 02/12/21 16:00 02/24/21 17:36 Olanzapine (ZyPREXA ZYDIS) 5 mg PRN Q2HR PRN PO PSYCHOSIS 02/12/21 12:30 02/25/21 02:14 Divalproex Sodium (Depakote Sprinkles) 375 mg 1300 PO 02/14/21 13:00 02/17/21 18:55 DC 02/17/21 12:24 Divalproex Sodium (Depakote Sprinkles) 500 mg 0900,1700 PO 02/13/21 17:00 02/17/21 18:55 DC 02/17/21 17:00 Insulin Human Lispro (HumaLOG) 0-9 UNITS TIDWMEALS SQ 02/14/21 08:00 02/24/21 17:39 Quetiapine Fumarate (SEROquel) 50 mg HS PO 02/15/21 21:00 02/21/21 20:28 DC 02/20/21 20:03 Quetiapine Fumarate (SEROquel) 25 mg DAILY08 PO 02/15/21 08:00 02/19/21 17:48 DC 02/19/21 08:47 Divalproex Sodium (Depakote Sprinkles) 500 mg TID PO 02/18/21 08:00 02/25/21 20:55 Quetiapine Fumarate (SEROquel) 25 mg 0900,1300 PO 02/20/21 09:00 02/25/21 12:34 Trazodone HCl (Desyrel) 100 mg PRN QHS PRN PO , February X1 02/20/21 18:00 02/25/21 20:55 Quetiapine Fumarate (SEROquel) 75 mg HS PO 02/21/21 21:00 02/25/21 20:55 I have reviewed the current psychotropics carefully including drug interactions. Risk benefit ratio favors no change other than as noted in my dictated progress note. Diagnosis: Problems: (1) Dementia in Alzheimer's disease with depression (2) Dementia in Alzheimer's disease with delusions (3) Major neurocognitive disorder (4) Dementia in Alzheimer's disease with early onset with behavioral disturbance (5) Dementia, vascular, with delusions (6) Anxiety disorder (7) Dementia, vascular, with depression (8) Impulse control disorder DEAN GARDNER MD February 25, 2021 22:01
[2021-02-26] MEDS: traZODone 100 MG TABLET. PO PRN (00:29)
[2021-02-26 05:10] VITALS: BP 189/97
[2021-02-26] MEDS: INSULIN LISPRO 300 UNITS/3 ML VIAL. SQ SCH ×3 (08:00→17:00)
[2021-02-26] MEDS: PRAZOSIN 5 MG CAPSULE. PO SCH ×2 (08:57→21:00)
[2021-02-26] MEDS: MULTIVITAMIN with MINERAL TABLET. PO SCH (08:57)
[2021-02-26] MEDS: QUEtiapine 25 MG TABLET. PO SCH ×3 (08:57→21:00)
[2021-02-26] MEDS: busPIRone 5 MG TABLET. PO SCH ×2 (08:57→21:00)
[2021-02-26] MEDS: SODIUM CHLORIDE 0.65% NASAL SPRAY 45ML BOTTLE. NS SCH ×2 (08:58→21:00)
[2021-02-26] MEDS: dilTIAZem HCL 30 MG TABLET PO SCH ×3 (08:58→21:00)
[2021-02-26] MEDS: ASPIRIN ENTERIC COATED 81 MG TABLET.DR. PO SCH (08:59)
[2021-02-26] MEDS: GALANTAMINE 4 MG TABLET PO SCH ×2 (08:59→21:00)
[2021-02-26] MEDS: DIVALPROEX 125 MG CAP.SPRINK PO SCH ×3 (08:59→21:00)
[2021-02-26] MEDS: FUROSEMIDE 20 MG TABLET PO SCH (08:59)
[2021-02-26] MEDS: CLOPIDOGREL BISULFATE 75 MG TABLET PO SCH (08:59)
[2021-02-26] MEDS: FERROUS SULFATE 325 MG TABLET. PO SCH ×2 (08:59→21:00)
[2021-02-26] MEDS: LISINOPRIL 10 MG TABLET PO SCH ×2 (08:59→21:00)
[2021-02-26] MEDS: CARVEDILOL 12.5 MG TABLET PO SCH ×2 (08:59→17:00)
[2021-02-26 15:35] VITALS: BP 133/86
[2021-02-26] MEDS: LINAGLIPTIN 5 MG TABLET PO SCH (16:00)
[2021-02-26] MEDS: INSULIN GLARGINE SYRINGE. SQ SCH (21:00)
[2021-02-26] MEDS: ATORVASTATIN CALCIUM 20 MG TABLET PO SCH (21:00)
[2021-02-26] MEDS: MIRTAZAPINE 7.5 MG TABLET. PO SCH (21:00)
--- NOTE | 2021-02-26 22:51 | PDOC ---
Exam Note: [place] Note: Please also refer to the separate dictated note~for this date of service dictated separately.~Patient seen individually. Discussed the patient with Nursing staff reviewed the chart.~Reviewed interim history and current functioning. Reviewed vital signs,~Labs/ Radiology~and current medications noted below. Continue current treatment with the changes noted in the dictated addendum note Assessment: Vital Signs/I&O: Vital Signs Date Time Temp Pulse Resp B/P (MAP) Pulse Ox O2 Delivery O2 Flow Rate FiO2 02/26/21 15:35 96.3 64 19 133/86 (102) 96 02/24/21 06:32 Room Air I & O 02/25/21 02/25/21 02/26/21 15:00 23:00 07:00 Intake Total 720 ml 100 ml Balance 720 ml 100 ml Labs: Laboratory Tests Test 02/26/21 07:30 02/26/21 11:51 02/26/21 16:30 02/26/21 19:23 Glucose (Fingerstick) 72 mg/dL (70-99) 169 mg/dL (70-99) H 135 mg/dL (70-99) H 119 mg/dL (70-99) H Current Medications: Meds: Laboratory Tests Test 02/26/21 07:30 02/26/21 11:51 02/26/21 16:30 02/26/21 19:23 Glucose (Fingerstick) 72 mg/dL 169 mg/dL 135 mg/dL 119 mg/dL Current Medications Medications (Trade) Dose Ordered Sig/Romeo Route PRN Reason Start Time Stop Time Status Last Admin Dose Admin Hydralazine HCl (Apresoline) 20 mg 1X ONCE IV 02/12/21 02:30 02/12/21 02:24 DC Hydralazine HCl (Apresoline) 10 mg 1X ONCE IV 02/12/21 02:30 02/12/21 02:31 DC 02/12/21 02:35 Hydralazine HCl (Apresoline) 10 mg 1X ONCE IV 02/12/21 03:15 02/12/21 03:16 DC 02/12/21 03:21 Midazolam HCl (Versed) 2.5 mg 1X ONCE IV 02/12/21 05:00 02/12/21 05:01 DC 02/12/21 04:53 Acetaminophen (Tylenol) 650 mg PRN Q6HRS PRN PO MILD PAIN / TEMP > 100.3'F 02/12/21 10:00 02/18/21 22:22 Multi-Ingredient Ointment (Analgesic [place]) 1 abby PRN QID PRN TP MUSCLE PAIN 02/12/21 10:00 Al Hydroxide/Mg Hydroxide (Mylanta Plus Xs) 15 ml PRN AFTMEALHC PRN PO DYSPEPSIA 02/12/21 10:00 Magnesium Hydroxide (Milk Of Magnesia) 2,400 mg PRN QHS PRN PO CONSTIPATION 02/12/21 10:00 Acetaminophen (Tylenol) 650 mg PRN Q6HRS PRN PO MILD PAIN / TEMP > 100.3'F 02/12/21 12:15 Cancel Albuterol Sulfate (Ventolin) 2.5 mg PRN Q6HRS PRN INH SHORTNESS OF BREATH 02/12/21 12:15 Aspirin (Aspirin Enteric Coated) 81 mg DAILY PO 02/13/21 09:00 02/26/21 08:59 Atorvastatin Calcium (Lipitor) 20 mg QHS PO 02/12/21 21:00 02/25/21 20:55 Buspirone HCl (Buspar) 5 mg BID PO 02/12/21 21:00 02/26/21 08:57 Vitamin D (Vitamin D3) 50,000 unit QFR PO 02/15/21 16:00 02/22/21 16:15 Clopidogrel Bisulfate (Plavix) 75 mg DAILY PO 02/13/21 09:00 02/26/21 08:59 Divalproex Sodium (Depakote Sprinkles) 375 mg TID@0900,1300,1700 PO 02/12/21 13:00 02/13/21 15:22 DC 02/13/21 12:47 Ferrous Sulfate (Feosol) 325 mg BID PO 02/12/21 21:00 02/26/21 08:59 Furosemide (Lasix) 20 mg DAILY PO 02/13/21 09:00 02/26/21 08:59 Hydralazine HCl (Apresoline) 12.5 mg PRN Q6HRS PRN PO htn 02/12/21 12:15 Insulin Glargine (Lantus Syringe) 50 unit HS SQ 02/12/21 21:00 02/25/21 21:11 Lisinopril (Prinivil) 20 mg BID PO 02/12/21 21:00 02/26/21 08:59 Multivitamins/ Calcium (Thera-M Plus) 1 tab DAILY PO 02/13/21 09:00 02/26/21 08:57 Ondansetron HCl (Zofran Odt) 4 mg PRN Q6HRS PRN PO NAUSEA/VOMITING 02/12/21 12:15 Prazosin HCl (Minipress) 5 mg BID PO 02/12/21 21:00 02/26/21 08:57 Quetiapine Fumarate (SEROquel) 50 mg DAILY PO 02/13/21 09:00 02/14/21 18:03 DC 02/14/21 05:31 Sodium Chloride (Saline Mist Nasal) 1 abby BID NS 02/12/21 21:00 02/26/21 08:58 Carvedilol (Coreg) 25 mg BIDWMEALS PO 02/12/21 17:00 02/26/21 08:59 Diltiazem HCl (Cardizem) 60 mg TID PO 02/12/21 14:00 02/26/21 13:19 Galantamine Hydrobromide (Razadyne) 4 mg BID PO 02/12/21 21:00 02/26/21 08:59 Glucagon (Glucagen Kit) 1 mg PRN Q15MIN PRN IM LOW BLOOD SUGAR 02/12/21 13:15 Non-Formulary Medication (Insulin Aspart (Novolog)) 70-150 Give 0 un... TIDWMEALS SQ 02/12/21 17:00 02/13/21 17:11 DC Loperamide HCl (Imodium) 2 mg PRN Q2HRS PRN PO DIARRHEA 02/12/21 13:15 Non-Formulary Medication (Methyl Salicylate/ Menthol (Analgesic [place])) 1 abby PRN QID PRN TP MUSCLE PAIN 02/12/21 12:15 02/12/21 13:14 DC Artificial Tears (Refresh Classic) 2 drop PRN QID PRN OU DRY EYE 02/12/21 13:15 Linagliptin (Tradjenta) 5 mg DAILY16 PO 02/12/21 16:00 02/24/21 17:36 Olanzapine (ZyPREXA ZYDIS) 5 mg PRN Q2HR PRN PO PSYCHOSIS 02/12/21 12:30 02/26/21 00:29 Divalproex Sodium (Depakote Sprinkles) 375 mg 1300 PO 02/14/21 13:00 02/17/21 18:55 DC 02/17/21 12:24 Divalproex Sodium (Depakote Sprinkles) 500 mg 0900,1700 PO 02/13/21 17:00 02/17/21 18:55 DC 02/17/21 17:00 Insulin Human Lispro (HumaLOG) 0-9 UNITS TIDWMEALS SQ 02/14/21 08:00 02/26/21 12:00 Quetiapine Fumarate (SEROquel) 50 mg HS PO 02/15/21 21:00 02/21/21 20:28 DC 02/20/21 20:03 Quetiapine Fumarate (SEROquel) 25 mg DAILY08 PO 02/15/21 08:00 02/19/21 17:48 DC 02/19/21 08:47 Divalproex Sodium (Depakote Sprinkles) 500 mg TID PO 02/18/21 08:00 02/26/21 13:18 Quetiapine Fumarate (SEROquel) 25 mg 0900,1300 PO 02/20/21 09:00 02/26/21 13:18 Trazodone HCl (Desyrel) 100 mg PRN QHS PRN PO , FEBRUARY REPEAT X1 02/20/21 18:00 02/26/21 00:29 Quetiapine Fumarate (SEROquel) 75 mg HS PO 02/21/21 21:00 02/25/21 20:55 Mirtazapine (Remeron) 7.5 mg QHS PO 02/26/21 21:00 I have reviewed the current psychotropics carefully including drug interactions. Risk benefit ratio favors no change other than as noted in my dictated progress note. Diagnosis: Problems: (1) Dementia in Alzheimer's disease with depression (2) Dementia in Alzheimer's disease with delusions (3) Major neurocognitive disorder (4) Dementia in Alzheimer's disease with early onset with behavioral disturbance (5) Dementia, vascular, with delusions (6) Anxiety disorder (7) Dementia, vascular, with depression (8) Impulse control disorder DEAN GARDNER MD February 26, 2021 22:51
[2021-02-27 06:32] VITALS: BP 165/76
[2021-02-27] MEDS: INSULIN LISPRO 300 UNITS/3 ML VIAL. SQ SCH ×3 (08:00→17:00)
--- NOTE | 2021-02-27 08:03 | PDOC ---
Exam Note: [place] Note: This note is a late entry for 02/25/2021 covers elements not covered in my initial note. Subjective: The patient was seen individually in the evening of 02/25/2021 with Anabelle KWOK, discussed and reviewed the chart. He slept 0 hours previous night. The patient was having hallucinations last night, believed there was fire in his room and another man was trying to kill him. This evening I met with him in his room. Review of Systems: Ambulation impaired in wheelchair. No CV, , pulmonary, eye, ENT system symptoms on review. Gait unsteady. Mental Status Exam: The patient is oriented to himself. Insight and judgment, recent and remote memory, attention and concentration, fund of knowledge is poor consistent with his diagnoses. Laboratory Data: Reviewed. Impression: Major neurocognitive disorder Alzheimer vascular with delusion, depression, behavioral disturbance. Anxiety disorder unspecified. Impulse control disorder unspecified. Plan: No change from initial note. Assessment: Vital Signs/I&O: Vital Signs Date Time Temp Pulse Resp B/P (MAP) Pulse Ox O2 Delivery O2 Flow Rate FiO2 02/27/21 06:32 96.9 66 16 165/76 (105) 93 02/24/21 06:32 Room Air I & O 02/26/21 02/26/21 02/27/21 15:00 23:00 07:00 Intake Total 600 ml 80 ml 100 ml Balance 600 ml 80 ml 100 ml Labs: Laboratory Tests Test 02/26/21 11:51 02/26/21 16:30 02/26/21 19:23 02/27/21 07:28 Glucose (Fingerstick) 169 mg/dL (70-99) H 135 mg/dL (70-99) H 119 mg/dL (70-99) H 87 mg/dL (70-99) Current Medications: Meds: Laboratory Tests Test 02/26/21 11:51 02/26/21 16:30 02/26/21 19:23 02/27/21 07:28 Glucose (Fingerstick) 169 mg/dL 135 mg/dL 119 mg/dL 87 mg/dL Current Medications Medications (Trade) Dose Ordered Sig/Romeo Route PRN Reason Start Time Stop Time Status Last Admin Dose Admin Hydralazine HCl (Apresoline) 20 mg 1X ONCE IV 02/12/21 02:30 02/12/21 02:24 DC Hydralazine HCl (Apresoline) 10 mg 1X ONCE IV 02/12/21 02:30 02/12/21 02:31 DC 02/12/21 02:35 Hydralazine HCl (Apresoline) 10 mg 1X ONCE IV 02/12/21 03:15 02/12/21 03:16 DC 02/12/21 03:21 Midazolam HCl (Versed) 2.5 mg 1X ONCE IV 02/12/21 05:00 02/12/21 05:01 DC 02/12/21 04:53 Acetaminophen (Tylenol) 650 mg PRN Q6HRS PRN PO MILD PAIN / TEMP > 100.3'F 02/12/21 10:00 02/18/21 22:22 Multi-Ingredient Ointment (Analgesic [place]) 1 abby PRN QID PRN TP MUSCLE PAIN 02/12/21 10:00 Al Hydroxide/Mg Hydroxide (Mylanta Plus Xs) 15 ml PRN AFTMEALHC PRN PO DYSPEPSIA 02/12/21 10:00 Magnesium Hydroxide (Milk Of Magnesia) 2,400 mg PRN QHS PRN PO CONSTIPATION 02/12/21 10:00 Acetaminophen (Tylenol) 650 mg PRN Q6HRS PRN PO MILD PAIN / TEMP > 100.3'F 02/12/21 12:15 Cancel Albuterol Sulfate (Ventolin) 2.5 mg PRN Q6HRS PRN INH SHORTNESS OF BREATH 02/12/21 12:15 Aspirin (Aspirin Enteric Coated) 81 mg DAILY PO 02/13/21 09:00 02/26/21 08:59 Atorvastatin Calcium (Lipitor) 20 mg QHS PO 02/12/21 21:00 02/25/21 20:55 Buspirone HCl (Buspar) 5 mg BID PO 02/12/21 21:00 02/26/21 08:57 Vitamin D (Vitamin D3) 50,000 unit QFR PO 02/15/21 16:00 02/22/21 16:15 Clopidogrel Bisulfate (Plavix) 75 mg DAILY PO 02/13/21 09:00 02/26/21 08:59 Divalproex Sodium (Depakote Sprinkles) 375 mg TID@0900,1300,1700 PO 02/12/21 13:00 02/13/21 15:22 DC 02/13/21 12:47 Ferrous Sulfate (Feosol) 325 mg BID PO 02/12/21 21:00 02/26/21 08:59 Furosemide (Lasix) 20 mg DAILY PO 02/13/21 09:00 02/26/21 08:59 Hydralazine HCl (Apresoline) 12.5 mg PRN Q6HRS PRN PO htn 02/12/21 12:15 Insulin Glargine (Lantus Syringe) 50 unit HS SQ 02/12/21 21:00 02/25/21 21:11 Lisinopril (Prinivil) 20 mg BID PO 02/12/21 21:00 02/26/21 08:59 Multivitamins/ Calcium (Thera-M Plus) 1 tab DAILY PO 02/13/21 09:00 02/26/21 08:57 Ondansetron HCl (Zofran Odt) 4 mg PRN Q6HRS PRN PO NAUSEA/VOMITING 02/12/21 12:15 Prazosin HCl (Minipress) 5 mg BID PO 02/12/21 21:00 02/26/21 08:57 Quetiapine Fumarate (SEROquel) 50 mg DAILY PO 02/13/21 09:00 02/14/21 18:03 DC 02/14/21 05:31 Sodium Chloride (Saline Mist Nasal) 1 abby BID NS 02/12/21 21:00 02/26/21 08:58 Carvedilol (Coreg) 25 mg BIDWMEALS PO 02/12/21 17:00 02/26/21 08:59 Diltiazem HCl (Cardizem) 60 mg TID PO 02/12/21 14:00 02/26/21 13:19 Galantamine Hydrobromide (Razadyne) 4 mg BID PO 02/12/21 21:00 02/26/21 08:59 Glucagon (Glucagen Kit) 1 mg PRN Q15MIN PRN IM LOW BLOOD SUGAR 02/12/21 13:15 Non-Formulary Medication (Insulin Aspart (Novolog)) 70-150 Give 0 un... TIDWMEALS SQ 02/12/21 17:00 02/13/21 17:11 DC Loperamide HCl (Imodium) 2 mg PRN Q2HRS PRN PO DIARRHEA 02/12/21 13:15 Non-Formulary Medication (Methyl Salicylate/ Menthol (Analgesic Taft)) 1 abby PRN QID PRN TP MUSCLE PAIN 02/12/21 12:15 02/12/21 13:14 DC Artificial Tears (Refresh Classic) 2 drop PRN QID PRN OU DRY EYE 02/12/21 13:15 Linagliptin (Tradjenta) 5 mg DAILY16 PO 02/12/21 16:00 02/24/21 17:36 Olanzapine (ZyPREXA ZYDIS) 5 mg PRN Q2HR PRN PO PSYCHOSIS 02/12/21 12:30 02/26/21 00:29 Divalproex Sodium (Depakote Sprinkles) 375 mg 1300 PO 02/14/21 13:00 02/17/21 18:55 DC 02/17/21 12:24 Divalproex Sodium (Depakote Sprinkles) 500 mg 0900,1700 PO 02/13/21 17:00 02/17/21 18:55 DC 02/17/21 17:00 Insulin Human Lispro (HumaLOG) 0-9 UNITS TIDWMEALS SQ 02/14/21 08:00 02/26/21 12:00 Quetiapine Fumarate (SEROquel) 50 mg HS PO 02/15/21 21:00 02/21/21 20:28 DC 02/20/21 20:03 Quetiapine Fumarate (SEROquel) 25 mg DAILY08 PO 02/15/21 08:00 02/19/21 17:48 DC 02/19/21 08:47 Divalproex Sodium (Depakote Sprinkles) 500 mg TID PO 02/18/21 08:00 02/26/21 13:18 Quetiapine Fumarate (SEROquel) 25 mg 0900,1300 PO 02/20/21 09:00 02/26/21 13:18 Trazodone HCl (Desyrel) 100 mg PRN QHS PRN PO INSOMNIA, MAY REPEAT X1 02/20/21 18:00 02/26/21 00:29 Quetiapine Fumarate (SEROquel) 75 mg HS PO 02/21/21 21:00 02/25/21 20:55 Mirtazapine (Remeron) 7.5 mg QHS PO 02/26/21 21:00 I have reviewed the current psychotropics carefully including drug interactions. Risk benefit ratio favors no change other than as noted in my dictated progress note. Diagnosis: Problems: (1) Dementia in Alzheimer's disease with depression (2) Dementia in Alzheimer's disease with delusions (3) Major neurocognitive disorder (4) Dementia in Alzheimer's disease with early onset with behavioral disturbance (5) Anxiety disorder (6) Dementia, vascular, with delusions (7) Dementia, vascular, with depression (8) Impulse control disorder DEAN GARDNER MD February 27, 2021 08:03
[2021-02-27] MEDS: ASPIRIN ENTERIC COATED 81 MG TABLET.DR. PO SCH (08:29)
[2021-02-27] MEDS: GALANTAMINE 4 MG TABLET PO SCH ×2 (08:29→21:31)
[2021-02-27] MEDS: SODIUM CHLORIDE 0.65% NASAL SPRAY 45ML BOTTLE. NS SCH ×2 (08:29→21:33)
[2021-02-27] MEDS: FERROUS SULFATE 325 MG TABLET. PO SCH ×2 (08:29→21:32)
[2021-02-27] MEDS: FUROSEMIDE 20 MG TABLET PO SCH (08:29)
[2021-02-27] MEDS: CLOPIDOGREL BISULFATE 75 MG TABLET PO SCH (08:30)
[2021-02-27] MEDS: dilTIAZem HCL 30 MG TABLET PO SCH ×3 (08:30→21:31)
[2021-02-27] MEDS: QUEtiapine 25 MG TABLET. PO SCH ×3 (08:30→21:33)
[2021-02-27] MEDS: busPIRone 5 MG TABLET. PO SCH ×2 (08:30→21:33)
[2021-02-27] MEDS: MULTIVITAMIN with MINERAL TABLET. PO SCH (08:30)
[2021-02-27] MEDS: PRAZOSIN 5 MG CAPSULE. PO SCH ×2 (08:30→21:32)
[2021-02-27] MEDS: LISINOPRIL 10 MG TABLET PO SCH ×2 (08:31→21:32)
[2021-02-27] MEDS: DIVALPROEX 125 MG CAP.SPRINK PO SCH ×3 (08:31→21:30)
[2021-02-27] MEDS: CARVEDILOL 12.5 MG TABLET PO SCH ×2 (08:31→17:51)
[2021-02-27 16:16] VITALS: BP 146/73
[2021-02-27] MEDS: LINAGLIPTIN 5 MG TABLET PO SCH (17:51)
[2021-02-27] MEDS: MIRTAZAPINE 7.5 MG TABLET. PO SCH (21:32)
[2021-02-27] MEDS: ATORVASTATIN CALCIUM 20 MG TABLET PO SCH (21:33)
[2021-02-27] MEDS: INSULIN GLARGINE SYRINGE. SQ SCH (21:51)
--- NOTE | 2021-02-27 22:03 | PDOC ---
Exam Note: [place] Note: Please also refer to the separate dictated note~for this date of service dictated separately.~Patient seen individually. Discussed the patient with Nursing staff reviewed the chart.~Reviewed interim history and current functioning. Reviewed vital signs,~Labs/ Radiology~and current medications noted below. Continue current treatment with the changes noted in the dictated addendum note Assessment: Vital Signs/I&O: Vital Signs Date Time Temp Pulse Resp B/P (MAP) Pulse Ox O2 Delivery O2 Flow Rate FiO2 02/27/21 21:32 62 146/73 02/27/21 16:16 97.5 18 98 Room Air I & O 02/26/21 02/26/21 02/27/21 15:00 23:00 07:00 Intake Total 600 ml 80 ml 100 ml Balance 600 ml 80 ml 100 ml Labs: Laboratory Tests Test 02/27/21 07:28 02/27/21 11:58 02/27/21 17:02 02/27/21 19:21 Glucose (Fingerstick) 87 mg/dL (70-99) 117 mg/dL (70-99) H 176 mg/dL (70-99) H 190 mg/dL (70-99) H Current Medications: Meds: Laboratory Tests Test 02/27/21 07:28 02/27/21 11:58 02/27/21 17:02 02/27/21 19:21 Glucose (Fingerstick) 87 mg/dL 117 mg/dL 176 mg/dL 190 mg/dL Current Medications Medications (Trade) Dose Ordered Sig/Romeo Route PRN Reason Start Time Stop Time Status Last Admin Dose Admin Hydralazine HCl (Apresoline) 20 mg 1X ONCE IV 02/12/21 02:30 02/12/21 02:24 DC Hydralazine HCl (Apresoline) 10 mg 1X ONCE IV 02/12/21 02:30 02/12/21 02:31 DC 02/12/21 02:35 Hydralazine HCl (Apresoline) 10 mg 1X ONCE IV 02/12/21 03:15 02/12/21 03:16 DC 02/12/21 03:21 Midazolam HCl (Versed) 2.5 mg 1X ONCE IV 02/12/21 05:00 02/12/21 05:01 DC 02/12/21 04:53 Acetaminophen (Tylenol) 650 mg PRN Q6HRS PRN PO MILD PAIN / TEMP > 100.3'F 02/12/21 10:00 02/18/21 22:22 Multi-Ingredient Ointment (Analgesic [place]) 1 abby PRN QID PRN TP MUSCLE PAIN 02/12/21 10:00 Al Hydroxide/Mg Hydroxide (Mylanta Plus Xs) 15 ml PRN AFTMEALHC PRN PO DYSPEPSIA 02/12/21 10:00 Magnesium Hydroxide (Milk Of Magnesia) 2,400 mg PRN QHS PRN PO CONSTIPATION 02/12/21 10:00 Acetaminophen (Tylenol) 650 mg PRN Q6HRS PRN PO MILD PAIN / TEMP > 100.3'F 02/12/21 12:15 Cancel Albuterol Sulfate (Ventolin) 2.5 mg PRN Q6HRS PRN INH SHORTNESS OF BREATH 02/12/21 12:15 Aspirin (Aspirin Enteric Coated) 81 mg DAILY PO 02/13/21 09:00 02/27/21 08:29 Atorvastatin Calcium (Lipitor) 20 mg QHS PO 02/12/21 21:00 02/27/21 21:33 Buspirone HCl (Buspar) 5 mg BID PO 02/12/21 21:00 02/27/21 21:33 Vitamin D (Vitamin D3) 50,000 unit QFR PO 02/15/21 16:00 02/22/21 16:15 Clopidogrel Bisulfate (Plavix) 75 mg DAILY PO 02/13/21 09:00 02/27/21 08:30 Divalproex Sodium (Depakote Sprinkles) 375 mg TID@0900,1300,1700 PO 02/12/21 13:00 02/13/21 15:22 DC 02/13/21 12:47 Ferrous Sulfate (Feosol) 325 mg BID PO 02/12/21 21:00 02/27/21 21:32 Furosemide (Lasix) 20 mg DAILY PO 02/13/21 09:00 02/27/21 08:29 Hydralazine HCl (Apresoline) 12.5 mg PRN Q6HRS PRN PO htn 02/12/21 12:15 Insulin Glargine (Lantus Syringe) 50 unit HS SQ 02/12/21 21:00 02/27/21 21:51 Lisinopril (Prinivil) 20 mg BID PO 02/12/21 21:00 02/27/21 21:32 Multivitamins/ Calcium (Thera-M Plus) 1 tab DAILY PO 02/13/21 09:00 02/27/21 08:30 Ondansetron HCl (Zofran Odt) 4 mg PRN Q6HRS PRN PO NAUSEA/VOMITING 02/12/21 12:15 Prazosin HCl (Minipress) 5 mg BID PO 02/12/21 21:00 02/27/21 21:32 Quetiapine Fumarate (SEROquel) 50 mg DAILY PO 02/13/21 09:00 02/14/21 18:03 DC 02/14/21 05:31 Sodium Chloride (Saline Mist Nasal) 1 abby BID NS 02/12/21 21:00 02/27/21 21:33 Carvedilol (Coreg) 25 mg BIDWMEALS PO 02/12/21 17:00 02/27/21 17:51 Diltiazem HCl (Cardizem) 60 mg TID PO 02/12/21 14:00 02/27/21 21:31 Galantamine Hydrobromide (Razadyne) 4 mg BID PO 02/12/21 21:00 02/27/21 21:31 Glucagon (Glucagen Kit) 1 mg PRN Q15MIN PRN IM LOW BLOOD SUGAR 02/12/21 13:15 Non-Formulary Medication (Insulin Aspart (Novolog)) 70-150 Give 0 un... TIDWMEALS SQ 02/12/21 17:00 02/13/21 17:11 DC Loperamide HCl (Imodium) 2 mg PRN Q2HRS PRN PO DIARRHEA 02/12/21 13:15 Non-Formulary Medication (Methyl Salicylate/ Menthol (Analgesic [place])) 1 abby PRN QID PRN TP MUSCLE PAIN 02/12/21 12:15 02/12/21 13:14 DC Artificial Tears (Refresh Classic) 2 drop PRN QID PRN OU DRY EYE 02/12/21 13:15 Linagliptin (Tradjenta) 5 mg DAILY16 PO 02/12/21 16:00 02/27/21 17:51 Olanzapine (ZyPREXA ZYDIS) 5 mg PRN Q2HR PRN PO PSYCHOSIS 02/12/21 12:30 02/26/21 00:29 Divalproex Sodium (Depakote Sprinkles) 375 mg 1300 PO 02/14/21 13:00 02/17/21 18:55 DC 02/17/21 12:24 Divalproex Sodium (Depakote Sprinkles) 500 mg 0900,1700 PO 02/13/21 17:00 02/17/21 18:55 DC 02/17/21 17:00 Insulin Human Lispro (HumaLOG) 0-9 UNITS TIDWMEALS SQ 02/14/21 08:00 02/27/21 17:00 Quetiapine Fumarate (SEROquel) 50 mg HS PO 02/15/21 21:00 02/21/21 20:28 DC 02/20/21 20:03 Quetiapine Fumarate (SEROquel) 25 mg DAILY08 PO 02/15/21 08:00 02/19/21 17:48 DC 02/19/21 08:47 Divalproex Sodium (Depakote Sprinkles) 500 mg TID PO 02/18/21 08:00 02/27/21 21:30 Quetiapine Fumarate (SEROquel) 25 mg 0900,1300 PO 02/20/21 09:00 02/27/21 13:10 Trazodone HCl (Desyrel) 100 mg PRN QHS PRN PO , February X1 02/20/21 18:00 02/26/21 00:29 Quetiapine Fumarate (SEROquel) 75 mg HS PO 02/21/21 21:00 02/27/21 21:33 Mirtazapine (Remeron) 7.5 mg QHS PO 02/26/21 21:00 02/27/21 21:32 I have reviewed the current psychotropics carefully including drug interactions. Risk benefit ratio favors no change other than as noted in my dictated progress note. Diagnosis: Problems: (1) Dementia in Alzheimer's disease with depression (2) Dementia in Alzheimer's disease with delusions (3) Anxiety disorder (4) Dementia, vascular, with delusions (5) Dementia, vascular, with depression (6) Impulse control disorder (7) Major neurocognitive disorder (8) Dementia in Alzheimer's disease with early onset with behavioral disturbance DEAN GARDNER MD February 27, 2021 22:03
[2021-02-28 07:07] VITALS: BP 117/78
--- NOTE | 2021-02-28 07:24 | PDOC ---
Exam Note: [place] Note: This note is a late entry for 02/26/2021 covers elements not covered in my initial note. Subjective: The patient was seen individually in the evening of 02/26/2021 with Clive KWOK, discussed and reviewed the chart. He slept 5-1/4 hours previous night. I met with him in his room. Previous night he was having some hallucinations. Received trazodone x2, yelling at night. I met with him in his room. Review of Systems: Ambulation impaired in wheelchair. No CV, , pulmonary, eye, ENT system symptoms on review. Gait unsteady. Mental Status Exam: The patient is oriented to himself. Insight and judgment, recent and remote memory, attention and concentration, fund of knowledge is poor consistent with his diagnoses. Laboratory Data: Reviewed. Impression: Major neurocognitive disorder Alzheimer vascular with delusion, depression, behavioral disturbance. Anxiety disorder unspecified. Impulse control disorder unspecified. Plan: No change from initial note. Start Remeron 7.5 mg p.o. h.s. due to his ongoing insomnia. Assessment: Vital Signs/I&O: Vital Signs Date Time Temp Pulse Resp B/P (MAP) Pulse Ox O2 Delivery O2 Flow Rate FiO2 02/28/21 07:07 98.0 58 16 117/78 (91) 97 Room Air I & O 02/27/21 02/27/21 02/28/21 15:00 23:00 07:00 Intake Total 960 ml 240 ml 0 ml Balance 960 ml 240 ml 0 ml Labs: Laboratory Tests Test 02/27/21 07:28 02/27/21 11:58 02/27/21 17:02 02/27/21 19:21 Glucose (Fingerstick) 87 mg/dL (70-99) 117 mg/dL (70-99) H 176 mg/dL (70-99) H 190 mg/dL (70-99) H Current Medications: Meds: Laboratory Tests Test 02/27/21 07:28 02/27/21 11:58 02/27/21 17:02 02/27/21 19:21 Glucose (Fingerstick) 87 mg/dL 117 mg/dL 176 mg/dL 190 mg/dL Current Medications Medications (Trade) Dose Ordered Sig/Romeo Route PRN Reason Start Time Stop Time Status Last Admin Dose Admin Hydralazine HCl (Apresoline) 20 mg 1X ONCE IV 02/12/21 02:30 02/12/21 02:24 DC Hydralazine HCl (Apresoline) 10 mg 1X ONCE IV 02/12/21 02:30 02/12/21 02:31 DC 02/12/21 02:35 Hydralazine HCl (Apresoline) 10 mg 1X ONCE IV 02/12/21 03:15 02/12/21 03:16 DC 02/12/21 03:21 Midazolam HCl (Versed) 2.5 mg 1X ONCE IV 02/12/21 05:00 02/12/21 05:01 DC 02/12/21 04:53 Acetaminophen (Tylenol) 650 mg PRN Q6HRS PRN PO MILD PAIN / TEMP > 100.3'F 02/12/21 10:00 02/18/21 22:22 Multi-Ingredient Ointment (Analgesic [place]) 1 abby PRN QID PRN TP MUSCLE PAIN 02/12/21 10:00 Al Hydroxide/Mg Hydroxide (Mylanta Plus Xs) 15 ml PRN AFTMEALHC PRN PO DYSPEPSIA 02/12/21 10:00 Magnesium Hydroxide (Milk Of Magnesia) 2,400 mg PRN QHS PRN PO CONSTIPATION 02/12/21 10:00 Acetaminophen (Tylenol) 650 mg PRN Q6HRS PRN PO MILD PAIN / TEMP > 100.3'F 02/12/21 12:15 Cancel Albuterol Sulfate (Ventolin) 2.5 mg PRN Q6HRS PRN INH SHORTNESS OF BREATH 02/12/21 12:15 Aspirin (Aspirin Enteric Coated) 81 mg DAILY PO 02/13/21 09:00 02/27/21 08:29 Atorvastatin Calcium (Lipitor) 20 mg QHS PO 02/12/21 21:00 02/27/21 21:33 Buspirone HCl (Buspar) 5 mg BID PO 02/12/21 21:00 02/27/21 21:33 Vitamin D (Vitamin D3) 50,000 unit QFR PO 02/15/21 16:00 02/22/21 16:15 Clopidogrel Bisulfate (Plavix) 75 mg DAILY PO 02/13/21 09:00 02/27/21 08:30 Divalproex Sodium (Depakote Sprinkles) 375 mg TID@0900,1300,1700 PO 02/12/21 13:00 02/13/21 15:22 DC 02/13/21 12:47 Ferrous Sulfate (Feosol) 325 mg BID PO 02/12/21 21:00 02/27/21 21:32 Furosemide (Lasix) 20 mg DAILY PO 02/13/21 09:00 02/27/21 08:29 Hydralazine HCl (Apresoline) 12.5 mg PRN Q6HRS PRN PO htn 02/12/21 12:15 Insulin Glargine (Lantus Syringe) 50 unit HS SQ 02/12/21 21:00 02/27/21 21:51 Lisinopril (Prinivil) 20 mg BID PO 02/12/21 21:00 02/27/21 21:32 Multivitamins/ Calcium (Thera-M Plus) 1 tab DAILY PO 02/13/21 09:00 02/27/21 08:30 Ondansetron HCl (Zofran Odt) 4 mg PRN Q6HRS PRN PO NAUSEA/VOMITING 02/12/21 12:15 Prazosin HCl (Minipress) 5 mg BID PO 02/12/21 21:00 02/27/21 21:32 Quetiapine Fumarate (SEROquel) 50 mg DAILY PO 02/13/21 09:00 02/14/21 18:03 DC 02/14/21 05:31 Sodium Chloride (Saline Mist Nasal) 1 abby BID NS 02/12/21 21:00 02/27/21 21:33 Carvedilol (Coreg) 25 mg BIDWMEALS PO 02/12/21 17:00 02/27/21 17:51 Diltiazem HCl (Cardizem) 60 mg TID PO 02/12/21 14:00 02/27/21 21:31 Galantamine Hydrobromide (Razadyne) 4 mg BID PO 02/12/21 21:00 02/27/21 21:31 Glucagon (Glucagen Kit) 1 mg PRN Q15MIN PRN IM LOW BLOOD SUGAR 02/12/21 13:15 Non-Formulary Medication (Insulin Aspart (Novolog)) 70-150 Give 0 un... TIDWMEALS SQ 02/12/21 17:00 02/13/21 17:11 DC Loperamide HCl (Imodium) 2 mg PRN Q2HRS PRN PO DIARRHEA 02/12/21 13:15 Non-Formulary Medication (Methyl Salicylate/ Menthol (Analgesic [place])) 1 abby PRN QID PRN TP MUSCLE PAIN 02/12/21 12:15 02/12/21 13:14 DC Artificial Tears (Refresh Classic) 2 drop PRN QID PRN OU DRY EYE 02/12/21 13:15 Linagliptin (Tradjenta) 5 mg DAILY16 PO 02/12/21 16:00 02/27/21 17:51 Olanzapine (ZyPREXA ZYDIS) 5 mg PRN Q2HR PRN PO PSYCHOSIS 02/12/21 12:30 02/26/21 00:29 Divalproex Sodium (Depakote Sprinkles) 375 mg 1300 PO 02/14/21 13:00 02/17/21 18:55 DC 02/17/21 12:24 Divalproex Sodium (Depakote Sprinkles) 500 mg 0900,1700 PO 02/13/21 17:00 02/17/21 18:55 DC 02/17/21 17:00 Insulin Human Lispro (HumaLOG) 0-9 UNITS TIDWMEALS SQ 02/14/21 08:00 02/27/21 17:00 Quetiapine Fumarate (SEROquel) 50 mg HS PO 02/15/21 21:00 02/21/21 20:28 DC 02/20/21 20:03 Quetiapine Fumarate (SEROquel) 25 mg DAILY08 PO 02/15/21 08:00 02/19/21 17:48 DC 02/19/21 08:47 Divalproex Sodium (Depakote Sprinkles) 500 mg TID PO 02/18/21 08:00 02/27/21 21:30 Quetiapine Fumarate (SEROquel) 25 mg 0900,1300 PO 02/20/21 09:00 02/27/21 13:10 Trazodone HCl (Desyrel) 100 mg PRN QHS PRN PO INSOMNIA, MAY REPEAT X1 02/20/21 18:00 02/26/21 00:29 Quetiapine Fumarate (SEROquel) 75 mg HS PO 02/21/21 21:00 5/5/21 21:33 Mirtazapine (Remeron) 7.5 mg QHS PO 02/26/21 21:00 02/27/21 21:32 I have reviewed the current psychotropics carefully including drug interactions. Risk benefit ratio favors no change other than as noted in my dictated progress note. Diagnosis: Problems: (1) Dementia in Alzheimer's disease with depression (2) Dementia in Alzheimer's disease with delusions (3) Major neurocognitive disorder (4) Dementia in Alzheimer's disease with early onset with behavioral disturbance (5) Anxiety disorder (6) Dementia, vascular, with delusions (7) Dementia, vascular, with depression (8) Impulse control disorder DEAN GARDNER MD February 28, 2021 07:24
[2021-02-28 07:32] LABS: ALBUMIN 2.6 g/dL (3.4-5.0); ALBUMIN/GLOBULIN RATIO 0.8 (1.0-1.7); CALCIUM 8.1 mg/dL (8.5-10.1); CREATININE 1.5 mg/dL (0.7-1.3); GFR 55.8; POTASSIUM 3.8 mmol/L (3.5-5.1); TOTAL BILIRUBIN 0.4 mg/dL (0.2-1.0); TOTAL PROTEIN 5.9 g/dL (6.4-8.2)
[2021-02-28] MEDS: INSULIN LISPRO 300 UNITS/3 ML VIAL. SQ SCH ×3 (08:00→17:00)
[2021-02-28 08:08] LABS: BASO % 0 % (0-3); EOS # 0.3 x10^3/uL (0.0-0.7); EOS % 5 % (0-3); HEMATOCRIT 33.2 % (39.0-53.0); HEMOGLOBIN 10.9 g/dL (13.0-17.5); LYMPH % 43 % (24-48); MEAN CORPUSCULAR HEMOGLOBIN 30 pg (25-35); MEAN CORPUSCULAR HGB CONC 33 g/dL (31-37); MEAN CORPUSCULAR VOLUME 91 fL (79-100); MONO # 0.7 x10^3/uL (0.0-1.1); MONO % 11 % (0-9); NEUT # 2.8 x10^3uL (1.8-7.7); NEUT % 41 % (31-73); PLATELET COUNT 125 x10^3/uL (140-400); RED BLOOD COUNT 3.64 x10^6/uL (4.30-5.70); RED CELL DISTRIBUTION WIDTH 14.6 % (11.5-14.5); WHITE BLOOD COUNT 6.8 x10^3/uL (4.0-11.0)
--- NOTE | 2021-02-28 08:08 | PDOC ---
Exam Note: [place] Note: This note is a late entry for 02/27/2021 covers elements not covered in my initial note. Subjective: The patient was seen individually in the evening of 02/27/2021 with Clive KWOK, discussed and reviewed the chart. He slept 10 hours previous night. The patient was yelling in the dayroom, delusional that someone was going to hurt him and later did well. I met with him in his room. Review of Systems: Ambulation impaired in wheelchair. No CV, , pulmonary, eye, ENT system symptoms on review. Mental Status Exam: The patient is oriented to himself. The patient is somewhat withdrawn, not angry or irritable, remains confused, still somewhat paranoid. No suicidal or homicidal ideation. Attention span short. Language function intact. Insight limited. Judgment impaired. Laboratory Data: Reviewed. Impression: Major neurocognitive disorder Alzheimer vascular with delusion, depression, behavioral disturbance. Anxiety disorder unspecified. Impulse control disorder unspecified. Plan: No change from initial note. Assessment: Vital Signs/I&O: Vital Signs Date Time Temp Pulse Resp B/P (MAP) Pulse Ox O2 Delivery O2 Flow Rate FiO2 02/28/21 07:07 98.0 58 16 117/78 (91) 97 Room Air I & O 02/27/21 02/27/21 02/28/21 15:00 23:00 07:00 Intake Total 960 ml 240 ml 0 ml Balance 960 ml 240 ml 0 ml Labs: Laboratory Tests Test 02/27/21 11:58 02/27/21 17:02 02/27/21 19:21 02/28/21 06:37 Glucose (Fingerstick) 117 mg/dL (70-99) H 176 mg/dL (70-99) H 190 mg/dL (70-99) H Sodium Level 143 mmol/L (136-145) Potassium Level 3.8 mmol/L (3.5-5.1) Chloride Level 107 mmol/L (98-107) Carbon Dioxide Level 27 mmol/L (21-32) Anion Gap 9 (6-14) Blood Urea Nitrogen 28 mg/dL (8-26) H Creatinine 1.5 mg/dL (0.7-1.3) H Estimated GFR (Cockcroft-Gault) 55.8 BUN/Creatinine Ratio 19 (6-20) Glucose Level 79 mg/dL (70-99) Calcium Level 8.1 mg/dL (8.5-10.1) L Total Bilirubin 0.4 mg/dL (0.2-1.0) Aspartate Amino Transferase (AST) 19 U/L (15-37) Alanine Aminotransferase (ALT) 26 U/L (16-63) Alkaline Phosphatase 46 U/L (46-116) Total Protein 5.9 g/dL (6.4-8.2) L Albumin 2.6 g/dL (3.4-5.0) L Albumin/Globulin Ratio 0.8 (1.0-1.7) L Test 02/28/21 07:34 Glucose (Fingerstick) 83 mg/dL (70-99) Current Medications: Meds: Laboratory Tests Test 02/27/21 11:58 02/27/21 17:02 02/27/21 19:21 02/28/21 06:37 Glucose (Fingerstick) 117 mg/dL 176 mg/dL 190 mg/dL Sodium Level 143 mmol/L Potassium Level 3.8 mmol/L Chloride Level 107 mmol/L Carbon Dioxide Level 27 mmol/L Anion Gap 9 Blood Urea Nitrogen 28 mg/dL Creatinine 1.5 mg/dL Estimated GFR (Cockcroft-Gault) 55.8 BUN/Creatinine Ratio 19 Glucose Level 79 mg/dL Calcium Level 8.1 mg/dL Total Bilirubin 0.4 mg/dL Aspartate Amino Transf (AST/SGOT) 19 U/L Alanine Aminotransferase (ALT/SGPT) 26 U/L Alkaline Phosphatase 46 U/L Total Protein 5.9 g/dL Albumin 2.6 g/dL Albumin/Globulin Ratio 0.8 Test 02/28/21 07:34 Glucose (Fingerstick) 83 mg/dL Current Medications Medications (Trade) Dose Ordered Sig/Romeo Route PRN Reason Start Time Stop Time Status Last Admin Dose Admin Hydralazine HCl (Apresoline) 20 mg 1X ONCE IV 02/12/21 02:30 02/12/21 02:24 DC Hydralazine HCl (Apresoline) 10 mg 1X ONCE IV 02/12/21 02:30 02/12/21 02:31 DC 02/12/21 02:35 Hydralazine HCl (Apresoline) 10 mg 1X ONCE IV 02/12/21 03:15 02/12/21 03:16 DC 02/12/21 03:21 Midazolam HCl (Versed) 2.5 mg 1X ONCE IV 02/12/21 05:00 02/12/21 05:01 DC 02/12/21 04:53 Acetaminophen (Tylenol) 650 mg PRN Q6HRS PRN PO MILD PAIN / TEMP > 100.3'F 02/12/21 10:00 02/18/21 22:22 Multi-Ingredient Ointment (Analgesic [place]) 1 abby PRN QID PRN TP MUSCLE PAIN 02/12/21 10:00 Al Hydroxide/Mg Hydroxide (Mylanta Plus Xs) 15 ml PRN AFTMEALHC PRN PO DYSPEPSIA 02/12/21 10:00 Magnesium Hydroxide (Milk Of Magnesia) 2,400 mg PRN QHS PRN PO CONSTIPATION 02/12/21 10:00 Acetaminophen (Tylenol) 650 mg PRN Q6HRS PRN PO MILD PAIN / TEMP > 100.3'F 02/12/21 12:15 Cancel Albuterol Sulfate (Ventolin) 2.5 mg PRN Q6HRS PRN INH SHORTNESS OF BREATH 02/12/21 12:15 Aspirin (Aspirin Enteric Coated) 81 mg DAILY PO 02/13/21 09:00 02/27/21 08:29 Atorvastatin Calcium (Lipitor) 20 mg QHS PO 02/12/21 21:00 02/27/21 21:33 Buspirone HCl (Buspar) 5 mg BID PO 02/12/21 21:00 02/27/21 21:33 Vitamin D (Vitamin D3) 50,000 unit QFR PO 02/15/21 16:00 02/22/21 16:15 Clopidogrel Bisulfate (Plavix) 75 mg DAILY PO 02/13/21 09:00 02/27/21 08:30 Divalproex Sodium (Depakote Sprinkles) 375 mg TID@0900,1300,1700 PO 02/12/21 13:00 02/13/21 15:22 DC 02/13/21 12:47 Ferrous Sulfate (Feosol) 325 mg BID PO 02/12/21 21:00 02/27/21 21:32 Furosemide (Lasix) 20 mg DAILY PO 02/13/21 09:00 02/27/21 08:29 Hydralazine HCl (Apresoline) 12.5 mg PRN Q6HRS PRN PO htn 02/12/21 12:15 Insulin Glargine (Lantus Syringe) 50 unit HS SQ 02/12/21 21:00 02/27/21 21:51 Lisinopril (Prinivil) 20 mg BID PO 02/12/21 21:00 02/27/21 21:32 Multivitamins/ Calcium (Thera-M Plus) 1 tab DAILY PO 02/13/21 09:00 02/27/21 08:30 Ondansetron HCl (Zofran Odt) 4 mg PRN Q6HRS PRN PO NAUSEA/VOMITING 02/12/21 12:15 Prazosin HCl (Minipress) 5 mg BID PO 02/12/21 21:00 02/27/21 21:32 Quetiapine Fumarate (SEROquel) 50 mg DAILY PO 02/13/21 09:00 02/14/21 18:03 DC 02/14/21 05:31 Sodium Chloride (Saline Mist Nasal) 1 abby BID NS 02/12/21 21:00 02/27/21 21:33 Carvedilol (Coreg) 25 mg BIDWMEALS PO 02/12/21 17:00 02/27/21 17:51 Diltiazem HCl (Cardizem) 60 mg TID PO 02/12/21 14:00 02/27/21 21:31 Galantamine Hydrobromide (Razadyne) 4 mg BID PO 02/12/21 21:00 02/27/21 21:31 Glucagon (Glucagen Kit) 1 mg PRN Q15MIN PRN IM LOW BLOOD SUGAR 02/12/21 13:15 Non-Formulary Medication (Insulin Aspart (Novolog)) 70-150 Give 0 un... TIDWMEALS SQ 02/12/21 17:00 02/13/21 17:11 DC Loperamide HCl (Imodium) 2 mg PRN Q2HRS PRN PO DIARRHEA 02/12/21 13:15 Non-Formulary Medication (Methyl Salicylate/ Menthol (Analgesic [place])) 1 abby PRN QID PRN TP MUSCLE PAIN 02/12/21 12:15 02/12/21 13:14 DC Artificial Tears (Refresh Classic) 2 drop PRN QID PRN OU DRY EYE 02/12/21 13:15 Linagliptin (Tradjenta) 5 mg DAILY16 PO 02/12/21 16:00 02/27/21 17:51 Olanzapine (ZyPREXA ZYDIS) 5 mg PRN Q2HR PRN PO PSYCHOSIS 02/12/21 12:30 02/26/21 00:29 Divalproex Sodium (Depakote Sprinkles) 375 mg 1300 PO 02/14/21 13:00 02/17/21 18:55 DC 02/17/21 12:24 Divalproex Sodium (Depakote Sprinkles) 500 mg 0900,1700 PO 02/13/21 17:00 02/17/21 18:55 DC 02/17/21 17:00 Insulin Human Lispro (HumaLOG) 0-9 UNITS TIDWMEALS SQ 02/14/21 08:00 02/27/21 17:00 Quetiapine Fumarate (SEROquel) 50 mg HS PO 02/15/21 21:00 02/21/21 20:28 DC 02/20/21 20:03 Quetiapine Fumarate (SEROquel) 25 mg DAILY08 PO 02/15/21 08:00 02/19/21 17:48 DC 02/19/21 08:47 Divalproex Sodium (Depakote Sprinkles) 500 mg TID PO 02/18/21 08:00 02/27/21 21:30 Quetiapine Fumarate (SEROquel) 25 mg 0900,1300 PO 02/20/21 09:00 02/27/21 13:10 Trazodone HCl (Desyrel) 100 mg PRN QHS PRN PO INSOMNIA, MAY REPEAT X1 02/20/21 18:00 02/26/21 00:29 Quetiapine Fumarate (SEROquel) 75 mg HS PO 02/21/21 21:00 02/27/21 21:33 Mirtazapine (Remeron) 7.5 mg QHS PO 02/26/21 21:00 02/27/21 21:32 I have reviewed the current psychotropics carefully including drug interactions. Risk benefit ratio favors no change other than as noted in my dictated progress note. Diagnosis: Problems: (1) Dementia in Alzheimer's disease with depression (2) Dementia in Alzheimer's disease with delusions (3) Major neurocognitive disorder (4) Dementia in Alzheimer's disease with early onset with behavioral disturbance (5) Dementia, vascular, with delusions (6) Anxiety disorder (7) Dementia, vascular, with depression (8) Impulse control disorder DEAN GARDNER MD February 28, 2021 08:07
[2021-02-28] MEDS: FUROSEMIDE 20 MG TABLET PO SCH (08:14)
[2021-02-28] MEDS: FERROUS SULFATE 325 MG TABLET. PO SCH ×2 (08:14→21:45)
[2021-02-28] MEDS: busPIRone 5 MG TABLET. PO SCH ×2 (08:14→21:45)
[2021-02-28] MEDS: CLOPIDOGREL BISULFATE 75 MG TABLET PO SCH (08:14)
[2021-02-28] MEDS: QUEtiapine 25 MG TABLET. PO SCH ×3 (08:16→21:44)
[2021-02-28] MEDS: ASPIRIN ENTERIC COATED 81 MG TABLET.DR. PO SCH (08:16)
[2021-02-28] MEDS: PRAZOSIN 5 MG CAPSULE. PO SCH ×2 (08:16→21:44)
[2021-02-28] MEDS: GALANTAMINE 4 MG TABLET PO SCH ×2 (08:16→21:44)
[2021-02-28] MEDS: MULTIVITAMIN with MINERAL TABLET. PO SCH (08:16)
[2021-02-28] MEDS: dilTIAZem HCL 30 MG TABLET PO SCH ×3 (08:17→21:45)
[2021-02-28] MEDS: CARVEDILOL 12.5 MG TABLET PO SCH ×2 (08:17→17:23)
[2021-02-28] MEDS: DIVALPROEX 125 MG CAP.SPRINK PO SCH ×3 (08:17→21:46)
[2021-02-28] MEDS: LISINOPRIL 10 MG TABLET PO SCH ×2 (08:18→21:44)
[2021-02-28] MEDS: SODIUM CHLORIDE 0.65% NASAL SPRAY 45ML BOTTLE. NS SCH ×2 (09:00→21:46)
--- NOTE | 2021-02-28 11:38 | TX PLAN ---
Interdisciplinary Tx Plan Admission Information Feb 12, 2021 at 08:00 Legal Status (on Admission): Voluntary DPOA/Guardian Name: Raffaele Hawk Contact Other Contact Name: [facility] Other Contact Verified Code Status: Full Code Allergies: Coded Allergies: No Known Drug Allergies (Unverified , 02/12/21) Diagnoses Primary Diagnosis: Major Neurocognitive D/O Reasons for Admission: Aggressive, Agitated, Confusion/Disoriented Problem in Patient's Words: He's getting more delusional Additional Admission Comments: According to the intake, pt is being aggressive towards staff, cursing, threatening peer, confused, angry and irritable Problems Active Problems: delusional agitated confused Inactive Problems: Medication compliant Pt Strengths/Limitations Ability for [place]: Poor Cognitive Functioning/Ability: Fair Communication Skills/Ability: Fair Financial Resources: Fair Insight/Judgement: Poor Intellectual Ability: Fair Physical Health: Poor Social Skills: Poor Stability in Family: Fair Stability in School/Work: Poor Verbal Skills: Fair Discharge Criteria Discharge Criteria: No need for close observ., Adequate arrangements @DC, Improved behavior, Improved mood/thought Preliminary Discharge Plan Preliminary DC Plan: Current Living Arrange. Special Precautions Fall Risk: Moderate Initial D/C Plan Will return to [facility] once stable. Identified Discharge Needs: Psychiatric follow-up Currently Utilized Resources Currently Utilized Resources/P: Primary Care Physician Referrals Community Resources: Psychiatric follow-up Identified Problems/Hx/Goals Objectives/Short-Term Goals Short Term Goals: Dec. Aggression, Dec. Outbursts, Improved Social Skills, Medication Stabilization, Promote Coping Skill Short Term Goals in Patient's: N/A Interventions/Frequency Staff Interventions/Frequency&: Psychiatrist to assess pt at least 3x per week for medication mgmt Social Work to assess pt at least 2x per week to identify barriers to care and finalize discharge planning. Nursing to assess medication mgmt, behavior modification and complete 15 minute checks daily. Encourage participation in group activities (if applicable) or 1:1 engagement based off activity dept goals. 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 Education: Last grade completed was high school (12th) Community Follow-up Primary Care physician as set up by pt facility Treatment Plan Explained Patient/Door Patcher had this treatment plan explained to him/her as indicated by the signature below and has been given the opportunity to ask questions and make suggestions: Date: Patient/Door Patcher Signature: Status Update Update Pt is eating roughly 75% of meals and sleeping on average 6.5 hours a night; it was reported that pt slept 10.5 hours last night. Pt was doing okay; however, yesterday and today pt has been increasingly delusional and hallucinating. Pt is increasingly suspicious of two male peers wanting to harm him. Staff has a ssured pt that the male peers do not have access to anything to harm him; but pt is not convinced that is the case. Pt will have his Seroquel dose increased from 25mg at 0900 and 1300 to 37.5mg. Pt discharge was scheduled for Monday 03/05; however, will look more towards later in the week 03/07 or Thursday 03/08. COLTON RILEY February 28, 2021 11:38
[2021-02-28 16:01] VITALS: BP 145/66
[2021-02-28] MEDS: LINAGLIPTIN 5 MG TABLET PO SCH (17:22)
[2021-02-28] MEDS: INSULIN GLARGINE SYRINGE. SQ SCH (21:00)
[2021-02-28] MEDS: MIRTAZAPINE 7.5 MG TABLET. PO SCH (21:44)
[2021-02-28] MEDS: ATORVASTATIN CALCIUM 20 MG TABLET PO SCH (21:45)
[2021-03-01 06:11] VITALS: BP 159/84
[2021-03-01] MEDS: INSULIN LISPRO 300 UNITS/3 ML VIAL. SQ SCH ×3 (08:00→17:00)
--- NOTE | 2021-03-01 08:18 | PDOC ---
Exam Note: [place] Note: This note is a late entry for 02/28/2021 covers elements not covered in my initial note. Subjective: The patient was reviewed in the morning of 02/28/2021 for a treatment team meeting with Karen Jo, Hamida Spain and Morena (pediatric social worker), Vira, activity therapy and Clive KWOK, discussed and reviewed the chart. He slept 10-3/4 hours previous night. He remains somewhat suspicious about the demented patients on the unit, not sedated. Discussed with Donavan KWOK in the evening. He is somewhat paranoid about two other male patients on the unit, less yelling. Review of Systems: Ambulation impaired in wheelchair. No CV, , pulmonary, eye, ENT system symptoms on review. Mental Status Exam: The patient is oriented to himself. No suicidal or homicidal ideation. Attention span short. Language function intact. Insight limited. Judgment impaired. Laboratory Data: Reviewed. Impression: Major neurocognitive disorder Alzheimer vascular with delusion, depression, behavioral disturbance. Anxiety disorder unspecified. Impulse control disorder unspecified. Plan: No change from initial note. We will increase the patients a.m. Seroquel and 1 p.m. Seroquel from 25 mg to 37.5 mg. Continue rest unchanged. Assessment: Vital Signs/I&O: Vital Signs Date Time Temp Pulse Resp B/P (MAP) Pulse Ox O2 Delivery O2 Flow Rate FiO2 03/01/21 06:11 97.9 72 20 159/84 (109) 100 02/28/21 16:01 Room Air I & O 02/28/21 02/28/21 03/01/21 14:59 22:59 06:59 Intake Total 720 ml 360 ml Balance 720 ml 360 ml Labs: Laboratory Tests Test 02/28/21 11:38 02/28/21 16:49 02/28/21 19:24 03/01/21 07:24 Glucose (Fingerstick) 169 mg/dL (70-99) H 100 mg/dL (70-99) H 108 mg/dL (70-99) H 86 mg/dL (70-99) Current Medications: Meds: Laboratory Tests Test 02/28/21 11:38 02/28/21 16:49 02/28/21 19:24 03/01/21 07:24 Glucose (Fingerstick) 169 mg/dL 100 mg/dL 108 mg/dL 86 mg/dL Current Medications Medications (Trade) Dose Ordered Sig/Romeo Route PRN Reason Start Time Stop Time Status Last Admin Dose Admin Hydralazine HCl (Apresoline) 20 mg 1X ONCE IV 02/12/21 02:30 02/12/21 02:24 DC Hydralazine HCl (Apresoline) 10 mg 1X ONCE IV 02/12/21 02:30 02/12/21 02:31 DC 02/12/21 02:35 Hydralazine HCl (Apresoline) 10 mg 1X ONCE IV 02/12/21 03:15 02/12/21 03:16 DC 02/12/21 03:21 Midazolam HCl (Versed) 2.5 mg 1X ONCE IV 02/12/21 05:00 02/12/21 05:01 DC 02/12/21 04:53 Acetaminophen (Tylenol) 650 mg PRN Q6HRS PRN PO MILD PAIN / TEMP > 100.3'F 02/12/21 10:00 02/18/21 22:22 Multi-Ingredient Ointment (Analgesic [place]) 1 abby PRN QID PRN TP MUSCLE PAIN 02/12/21 10:00 Al Hydroxide/Mg Hydroxide (Mylanta Plus Xs) 15 ml PRN AFTMEALHC PRN PO DYSPEPSIA 02/12/21 10:00 Magnesium Hydroxide (Milk Of Magnesia) 2,400 mg PRN QHS PRN PO CONSTIPATION 02/12/21 10:00 Acetaminophen (Tylenol) 650 mg PRN Q6HRS PRN PO MILD PAIN / TEMP > 100.3'F 02/12/21 12:15 Cancel Albuterol Sulfate (Ventolin) 2.5 mg PRN Q6HRS PRN INH SHORTNESS OF BREATH 02/12/21 12:15 Aspirin (Aspirin Enteric Coated) 81 mg DAILY PO 02/13/21 09:00 02/28/21 08:16 Atorvastatin Calcium (Lipitor) 20 mg QHS PO 02/12/21 21:00 02/28/21 21:45 Buspirone HCl (Buspar) 5 mg BID PO 02/12/21 21:00 02/28/21 21:45 Vitamin D (Vitamin D3) 50,000 unit QFR PO 02/15/21 16:00 02/22/21 16:15 Clopidogrel Bisulfate (Plavix) 75 mg DAILY PO 02/13/21 09:00 02/28/21 08:14 Divalproex Sodium (Depakote Sprinkles) 375 mg TID@0900,1300,1700 PO 02/12/21 13:00 02/13/21 15:22 DC 02/13/21 12:47 Ferrous Sulfate (Feosol) 325 mg BID PO 02/12/21 21:00 02/28/21 21:45 Furosemide (Lasix) 20 mg DAILY PO 02/13/21 09:00 02/28/21 08:14 Hydralazine HCl (Apresoline) 12.5 mg PRN Q6HRS PRN PO htn 02/12/21 12:15 Insulin Glargine (Lantus Syringe) 50 unit HS SQ 02/12/21 21:00 02/27/21 21:51 Lisinopril (Prinivil) 20 mg BID PO 02/12/21 21:00 02/28/21 21:44 Multivitamins/ Calcium (Thera-M Plus) 1 tab DAILY PO 02/13/21 09:00 02/28/21 08:16 Ondansetron HCl (Zofran Odt) 4 mg PRN Q6HRS PRN PO NAUSEA/VOMITING 02/12/21 12:15 Prazosin HCl (Minipress) 5 mg BID PO 02/12/21 21:00 02/28/21 21:44 Quetiapine Fumarate (SEROquel) 50 mg DAILY PO 02/13/21 09:00 02/14/21 18:03 DC 02/14/21 05:31 Sodium Chloride (Saline Mist Nasal) 1 abby BID NS 02/12/21 21:00 02/28/21 21:46 Carvedilol (Coreg) 25 mg BIDWMEALS PO 02/12/21 17:00 02/28/21 17:23 Diltiazem HCl (Cardizem) 60 mg TID PO 02/12/21 14:00 02/28/21 21:45 Galantamine Hydrobromide (Razadyne) 4 mg BID PO 02/12/21 21:00 02/28/21 21:44 Glucagon (Glucagen Kit) 1 mg PRN Q15MIN PRN IM LOW BLOOD SUGAR 02/12/21 13:15 Non-Formulary Medication (Insulin Aspart (Novolog)) 70-150 Give 0 un... TIDWMEALS SQ 02/12/21 17:00 02/13/21 17:11 DC Loperamide HCl (Imodium) 2 mg PRN Q2HRS PRN PO DIARRHEA 02/12/21 13:15 Non-Formulary Medication (Methyl Salicylate/ Menthol (Analgesic [place])) 1 abby PRN QID PRN TP MUSCLE PAIN 02/12/21 12:15 02/12/21 13:14 DC Artificial Tears (Refresh Classic) 2 drop PRN QID PRN OU DRY EYE 02/12/21 13:15 Linagliptin (Tradjenta) 5 mg DAILY16 PO 02/12/21 16:00 02/28/21 17:22 Olanzapine (ZyPREXA ZYDIS) 5 mg PRN Q2HR PRN PO PSYCHOSIS 02/12/21 12:30 02/26/21 00:29 Divalproex Sodium (Depakote Sprinkles) 375 mg 1300 PO 02/14/21 13:00 02/17/21 18:55 DC 02/17/21 12:24 Divalproex Sodium (Depakote Sprinkles) 500 mg 0900,1700 PO 02/13/21 17:00 02/17/21 18:55 DC 02/17/21 17:00 Insulin Human Lispro (HumaLOG) 0-9 UNITS TIDWMEALS SQ 02/14/21 08:00 02/28/21 12:52 Quetiapine Fumarate (SEROquel) 50 mg HS PO 02/15/21 21:00 02/21/21 20:28 DC 02/20/21 20:03 Quetiapine Fumarate (SEROquel) 25 mg DAILY08 PO 02/15/21 08:00 02/19/21 17:48 DC 02/19/21 08:47 Divalproex Sodium (Depakote Sprinkles) 500 mg TID PO 02/18/21 08:00 02/28/21 21:46 Quetiapine Fumarate (SEROquel) 25 mg 0900,1300 PO 02/20/21 09:00 02/28/21 11:54 DC 02/28/21 08:16 Trazodone HCl (Desyrel) 100 mg PRN QHS PRN PO INSOMNIA, MAY REPEAT X1 02/20/21 18:00 02/26/21 00:29 Quetiapine Fumarate (SEROquel) 75 mg HS PO 02/21/21 21:00 02/28/21 21:44 Mirtazapine (Remeron) 7.5 mg QHS PO 02/26/21 21:00 02/28/21 21:44 Quetiapine Fumarate (SEROquel) 37.5 mg 0900,1300 PO 02/28/21 13:00 02/28/21 12:53 Current Medications Medications (Trade) Dose Ordered Sig/Romeo Route PRN Reason Start Time Stop Time Status Last Admin Dose Admin Quetiapine Fumarate (SEROquel) 37.5 mg 0900,1300 PO 02/28/21 13:00 02/28/21 12:53 I have reviewed the current psychotropics carefully including drug interactions. Risk benefit ratio favors no change other than as noted in my dictated progress note. Diagnosis: Problems: (1) Dementia in Alzheimer's disease with depression (2) Dementia in Alzheimer's disease with delusions (3) Major neurocognitive disorder (4) Dementia in Alzheimer's disease with early onset with behavioral disturbance (5) Anxiety disorder (6) Dementia, vascular, with delusions (7) Dementia, vascular, with depression (8) Impulse control disorder DEAN GARDNER MD March 01, 2021 08:18
[2021-03-01] MEDS: SODIUM CHLORIDE 0.65% NASAL SPRAY 45ML BOTTLE. NS SCH ×2 (09:19→20:15)
[2021-03-01] MEDS: busPIRone 5 MG TABLET. PO SCH ×2 (09:19→20:16)
[2021-03-01] MEDS: FUROSEMIDE 20 MG TABLET PO SCH (09:20)
[2021-03-01] MEDS: MULTIVITAMIN with MINERAL TABLET. PO SCH (09:20)
[2021-03-01] MEDS: FERROUS SULFATE 325 MG TABLET. PO SCH ×2 (09:20→20:15)
[2021-03-01] MEDS: GALANTAMINE 4 MG TABLET PO SCH ×2 (09:20→20:16)
[2021-03-01] MEDS: PRAZOSIN 5 MG CAPSULE. PO SCH ×2 (09:20→20:15)
[2021-03-01] MEDS: ASPIRIN ENTERIC COATED 81 MG TABLET.DR. PO SCH (09:20)
[2021-03-01] MEDS: CLOPIDOGREL BISULFATE 75 MG TABLET PO SCH (09:20)
[2021-03-01] MEDS: LISINOPRIL 10 MG TABLET PO SCH ×2 (09:21→20:16)
[2021-03-01] MEDS: dilTIAZem HCL 30 MG TABLET PO SCH ×3 (09:21→20:17)
[2021-03-01] MEDS: DIVALPROEX 125 MG CAP.SPRINK PO SCH ×3 (09:21→20:17)
[2021-03-01] MEDS: QUEtiapine 25 MG TABLET. PO SCH ×3 (09:22→20:15)
[2021-03-01] MEDS: CARVEDILOL 12.5 MG TABLET PO SCH ×2 (09:22→17:46)
[2021-03-01 16:04] VITALS: BP 164/84
[2021-03-01] MEDS: CHOLECALCIFEROL (VITAMIN D3) 50,000 UNIT CAPSULE PO SCH (17:45)
[2021-03-01] MEDS: LINAGLIPTIN 5 MG TABLET PO SCH (17:45)
[2021-03-01] MEDS: ATORVASTATIN CALCIUM 20 MG TABLET PO SCH (20:15)
[2021-03-01] MEDS: MIRTAZAPINE 7.5 MG TABLET. PO SCH (20:16)
[2021-03-01] MEDS: INSULIN GLARGINE SYRINGE. SQ SCH (21:00)
--- NOTE | 2021-03-01 22:01 | PDOC ---
Exam Note: [place] Note: Please also refer to the separate dictated note~for this date of service dictated separately.~Patient seen individually. Discussed the patient with Nursing staff reviewed the chart.~Reviewed interim history and current functioning. Reviewed vital signs,~Labs/ Radiology~and current medications noted below. Continue current treatment with the changes noted in the dictated addendum note Assessment: Vital Signs/I&O: Vital Signs Date Time Temp Pulse Resp B/P (MAP) Pulse Ox O2 Delivery O2 Flow Rate FiO2 03/01/21 20:17 61 164/84 03/01/21 16:04 98.8 20 99 02/28/21 16:01 Room Air I & O 02/28/21 02/28/21 03/01/21 15:00 23:00 07:00 Intake Total 720 ml 360 ml Balance 720 ml 360 ml Labs: Laboratory Tests Test 03/01/21 07:24 03/01/21 11:49 03/01/21 16:44 03/01/21 19:26 Glucose (Fingerstick) 86 mg/dL (70-99) 148 mg/dL (70-99) H 152 mg/dL (70-99) H 125 mg/dL (70-99) H Current Medications: Meds: Laboratory Tests Test 03/01/21 07:24 03/01/21 11:49 03/01/21 16:44 03/01/21 19:26 Glucose (Fingerstick) 86 mg/dL 148 mg/dL 152 mg/dL 125 mg/dL Current Medications Medications (Trade) Dose Ordered Sig/Romeo Route PRN Reason Start Time Stop Time Status Last Admin Dose Admin Hydralazine HCl (Apresoline) 20 mg 1X ONCE IV 02/12/21 02:30 02/12/21 02:24 DC Hydralazine HCl (Apresoline) 10 mg 1X ONCE IV 02/12/21 02:30 02/12/21 02:31 DC 02/12/21 02:35 Hydralazine HCl (Apresoline) 10 mg 1X ONCE IV 02/12/21 03:15 02/12/21 03:16 DC 02/12/21 03:21 Midazolam HCl (Versed) 2.5 mg 1X ONCE IV 02/12/21 05:00 02/12/21 05:01 DC 02/12/21 04:53 Acetaminophen (Tylenol) 650 mg PRN Q6HRS PRN PO MILD PAIN / TEMP > 100.3'F 02/12/21 10:00 02/18/21 22:22 Multi-Ingredient Ointment (Analgesic [place]) 1 abby PRN QID PRN TP MUSCLE PAIN 02/12/21 10:00 Al Hydroxide/Mg Hydroxide (Mylanta Plus Xs) 15 ml PRN AFTMEALHC PRN PO DYSPEPSIA 02/12/21 10:00 Magnesium Hydroxide (Milk Of Magnesia) 2,400 mg PRN QHS PRN PO CONSTIPATION 02/12/21 10:00 Acetaminophen (Tylenol) 650 mg PRN Q6HRS PRN PO MILD PAIN / TEMP > 100.3'F 02/12/21 12:15 Cancel Albuterol Sulfate (Ventolin) 2.5 mg PRN Q6HRS PRN INH SHORTNESS OF BREATH 02/12/21 12:15 Aspirin (Aspirin Enteric Coated) 81 mg DAILY PO 02/13/21 09:00 03/01/21 09:20 Atorvastatin Calcium (Lipitor) 20 mg QHS PO 02/12/21 21:00 03/01/21 20:15 Buspirone HCl (Buspar) 5 mg BID PO 02/12/21 21:00 03/01/21 20:16 Vitamin D (Vitamin D3) 50,000 unit QFR PO 02/15/21 16:00 03/01/21 17:45 Clopidogrel Bisulfate (Plavix) 75 mg DAILY PO 02/13/21 09:00 03/01/21 09:20 Divalproex Sodium (Depakote Sprinkles) 375 mg TID@0900,1300,1700 PO 02/12/21 13:00 02/13/21 15:22 DC 02/13/21 12:47 Ferrous Sulfate (Feosol) 325 mg BID PO 02/12/21 21:00 03/01/21 20:15 Furosemide (Lasix) 20 mg DAILY PO 02/13/21 09:00 03/01/21 09:20 Hydralazine HCl (Apresoline) 12.5 mg PRN Q6HRS PRN PO htn 02/12/21 12:15 Insulin Glargine (Lantus Syringe) 50 unit HS SQ 02/12/21 21:00 02/27/21 21:51 Lisinopril (Prinivil) 20 mg BID PO 02/12/21 21:00 03/01/21 20:16 Multivitamins/ Calcium (Thera-M Plus) 1 tab DAILY PO 02/13/21 09:00 03/01/21 09:20 Ondansetron HCl (Zofran Odt) 4 mg PRN Q6HRS PRN PO NAUSEA/VOMITING 02/12/21 12:15 Prazosin HCl (Minipress) 5 mg BID PO 02/12/21 21:00 03/01/21 20:15 Quetiapine Fumarate (SEROquel) 50 mg DAILY PO 02/13/21 09:00 02/14/21 18:03 DC 02/14/21 05:31 Sodium Chloride (Saline Mist Nasal) 1 abby BID NS 02/12/21 21:00 03/01/21 20:15 Carvedilol (Coreg) 25 mg BIDWMEALS PO 02/12/21 17:00 03/01/21 17:46 Diltiazem HCl (Cardizem) 60 mg TID PO 02/12/21 14:00 03/01/21 20:17 Galantamine Hydrobromide (Razadyne) 4 mg BID PO 02/12/21 21:00 03/01/21 20:16 Glucagon (Glucagen Kit) 1 mg PRN Q15MIN PRN IM LOW BLOOD SUGAR 02/12/21 13:15 Non-Formulary Medication (Insulin Aspart (Novolog)) 70-150 Give 0 un... TIDWMEALS SQ 02/12/21 17:00 02/13/21 17:11 DC Loperamide HCl (Imodium) 2 mg PRN Q2HRS PRN PO DIARRHEA 02/12/21 13:15 Non-Formulary Medication (Methyl Salicylate/ Menthol (Analgesic [place])) 1 abby PRN QID PRN TP MUSCLE PAIN 02/12/21 12:15 02/12/21 13:14 DC Artificial Tears (Refresh Classic) 2 drop PRN QID PRN OU DRY EYE 02/12/21 13:15 Linagliptin (Tradjenta) 5 mg DAILY16 PO 02/12/21 16:00 03/01/21 17:45 Olanzapine (ZyPREXA ZYDIS) 5 mg PRN Q2HR PRN PO PSYCHOSIS 02/12/21 12:30 02/26/21 00:29 Divalproex Sodium (Depakote Sprinkles) 375 mg 1300 PO 02/14/21 13:00 02/17/21 18:55 DC 02/17/21 12:24 Divalproex Sodium (Depakote Sprinkles) 500 mg 0900,1700 PO 02/13/21 17:00 02/17/21 18:55 DC 02/17/21 17:00 Insulin Human Lispro (HumaLOG) 0-9 UNITS TIDWMEALS SQ 02/14/21 08:00 02/28/21 12:52 Quetiapine Fumarate (SEROquel) 50 mg HS PO 02/15/21 21:00 02/21/21 20:28 DC 02/20/21 20:03 Quetiapine Fumarate (SEROquel) 25 mg DAILY08 PO 02/15/21 08:00 02/19/21 17:48 DC 02/19/21 08:47 Divalproex Sodium (Depakote Sprinkles) 500 mg TID PO 02/18/21 08:00 03/01/21 20:17 Quetiapine Fumarate (SEROquel) 25 mg 0900,1300 PO 02/20/21 09:00 02/28/21 11:54 DC 02/28/21 08:16 Trazodone HCl (Desyrel) 100 mg PRN QHS PRN PO INSOMNIA, MAY REPEAT X1 02/20/21 18:00 02/26/21 00:29 Quetiapine Fumarate (SEROquel) 75 mg HS PO 02/21/21 21:00 03/01/21 20:15 Mirtazapine (Remeron) 7.5 mg QHS PO 02/26/21 21:00 03/01/21 20:16 Quetiapine Fumarate (SEROquel) 37.5 mg 0900,1300 PO 02/28/21 13:00 03/01/21 13:51 I have reviewed the current psychotropics carefully including drug interactions. Risk benefit ratio favors no change other than as noted in my dictated progress note. Diagnosis: Problems: (1) Dementia in Alzheimer's disease with depression (2) Dementia in Alzheimer's disease with delusions (3) Major neurocognitive disorder (4) Dementia in Alzheimer's disease with early onset with behavioral disturbance (5) Anxiety disorder (6) Dementia, vascular, with delusions (7) Dementia, vascular, with depression (8) Impulse control disorder DAEN GARDNER MD March 01, 2021 22:01
[2021-03-01] MEDS: NYSTATIN TOPICAL POWDER 15GM BOTTLE. TP SCH (23:00)
[2021-03-02] MEDS: traZODone 100 MG TABLET. PO PRN ×2 (00:16→21:13)
[2021-03-02 06:17] VITALS: BP 165/92
[2021-03-02] MEDS: INSULIN LISPRO 300 UNITS/3 ML VIAL. SQ SCH ×3 (08:00→17:00)
[2021-03-02] MEDS: ASPIRIN ENTERIC COATED 81 MG TABLET.DR. PO SCH (08:16)
[2021-03-02] MEDS: LISINOPRIL 10 MG TABLET PO SCH ×2 (08:16→21:14)
[2021-03-02] MEDS: CLOPIDOGREL BISULFATE 75 MG TABLET PO SCH (08:16)
[2021-03-02] MEDS: dilTIAZem HCL 30 MG TABLET PO SCH ×3 (08:17→21:15)
[2021-03-02] MEDS: CARVEDILOL 12.5 MG TABLET PO SCH ×2 (08:18→17:00)
[2021-03-02] MEDS: FERROUS SULFATE 325 MG TABLET. PO SCH ×2 (08:18→21:14)
[2021-03-02] MEDS: FUROSEMIDE 20 MG TABLET PO SCH (08:18)
[2021-03-02] MEDS: QUEtiapine 25 MG TABLET. PO SCH ×3 (08:18→21:14)
[2021-03-02] MEDS: MULTIVITAMIN with MINERAL TABLET. PO SCH (08:18)
[2021-03-02] MEDS: DIVALPROEX 125 MG CAP.SPRINK PO SCH ×3 (08:19→21:14)
[2021-03-02] MEDS: busPIRone 5 MG TABLET. PO SCH ×2 (08:19→21:15)
[2021-03-02] MEDS: GALANTAMINE 4 MG TABLET PO SCH ×2 (08:19→21:14)
[2021-03-02] MEDS: PRAZOSIN 5 MG CAPSULE. PO SCH ×2 (08:19→21:14)
[2021-03-02] MEDS: NYSTATIN TOPICAL POWDER 15GM BOTTLE. TP SCH ×2 (09:00→21:22)
[2021-03-02] MEDS: SODIUM CHLORIDE 0.65% NASAL SPRAY 45ML BOTTLE. NS SCH ×2 (09:00→21:22)
[2021-03-02] MEDS: LINAGLIPTIN 5 MG TABLET PO SCH (16:00)
[2021-03-02 16:11] VITALS: BP 156/81
[2021-03-02] MEDS: ATORVASTATIN CALCIUM 20 MG TABLET PO SCH (21:14)
[2021-03-02] MEDS: MIRTAZAPINE 7.5 MG TABLET. PO SCH (21:14)
[2021-03-02] MEDS: INSULIN GLARGINE SYRINGE. SQ SCH (21:22)
[2021-03-03] MEDS: traZODone 100 MG TABLET. PO PRN (01:18)
--- NOTE | 2021-03-03 02:43 | PN ---
DATE: 03/02/2021 SUBJECTIVE: The patient was seen today, met with the staff. Chart was reviewed. also covering for Dr. Crystal. Staff reports having visual hallucinations also getting paranoid and suspicious at times. The patient apparently had a recent cerebrovascular accident. He is on a Broda chair. OBSERVATION: VITAL SIGNS: Temperature 97.8, blood pressure 165/92, pulse 70, respirations 18, O2 sat 96%. Slept only about 2 hours last night. GENERAL: His appetite decreased. CURRENT MEDICATIONS: Include Seroquel 37.5 mg twice a day, mirtazapine 7.5 mg at night, Seroquel 75 mg at night, Depakote 500 mg t.i.d., prazosin 5 mg twice a day, BuSpar 5 mg twice a day and also p.r.n. Zyprexa. The patient is not having any major side effects. LABORATORY DATA: The patient's lab reviewed. The patient's Depakote level was 66. ASSESSMENT: Major neurocognitive disorder, vascular versus Alzheimer's with delusions, depression and behavioral disturbances. PLAN: To continue with the current treatment plan. Length of stay ten days. DELMI/CLARISSA DR: SEA/rose TID: [id number] [facility]
[2021-03-03 06:25] VITALS: BP 183/83
[2021-03-03] MEDS: CARVEDILOL 12.5 MG TABLET PO SCH ×2 (08:00→17:22)
[2021-03-03] MEDS: INSULIN LISPRO 300 UNITS/3 ML VIAL. SQ SCH ×3 (08:00→17:00)
[2021-03-03] MEDS: busPIRone 5 MG TABLET. PO SCH ×2 (09:00→21:00)
[2021-03-03] MEDS: FERROUS SULFATE 325 MG TABLET. PO SCH ×2 (09:00→21:00)
[2021-03-03] MEDS: ASPIRIN ENTERIC COATED 81 MG TABLET.DR. PO SCH (09:00)
[2021-03-03] MEDS: PRAZOSIN 5 MG CAPSULE. PO SCH ×2 (09:00→21:00)
[2021-03-03] MEDS: FUROSEMIDE 20 MG TABLET PO SCH (09:00)
[2021-03-03] MEDS: CLOPIDOGREL BISULFATE 75 MG TABLET PO SCH (09:00)
[2021-03-03] MEDS: dilTIAZem HCL 30 MG TABLET PO SCH ×3 (09:00→21:00)
[2021-03-03] MEDS: NYSTATIN TOPICAL POWDER 15GM BOTTLE. TP SCH ×2 (09:00→21:00)
[2021-03-03] MEDS: MULTIVITAMIN with MINERAL TABLET. PO SCH (09:00)
[2021-03-03] MEDS: DIVALPROEX 125 MG CAP.SPRINK PO SCH ×3 (09:00→21:00)
[2021-03-03] MEDS: QUEtiapine 25 MG TABLET. PO SCH ×3 (09:00→21:00)
[2021-03-03] MEDS: LISINOPRIL 10 MG TABLET PO SCH ×2 (09:00→21:00)
[2021-03-03] MEDS: SODIUM CHLORIDE 0.65% NASAL SPRAY 45ML BOTTLE. NS SCH ×2 (09:00→21:00)
[2021-03-03] MEDS: GALANTAMINE 4 MG TABLET PO SCH ×2 (09:00→21:00)
[2021-03-03 16:22] VITALS: BP 181/91
[2021-03-03] MEDS: LINAGLIPTIN 5 MG TABLET PO SCH (17:22)
[2021-03-03] MEDS: INSULIN GLARGINE SYRINGE. SQ SCH (21:00)
[2021-03-03] MEDS: ATORVASTATIN CALCIUM 20 MG TABLET PO SCH (21:00)
[2021-03-03] MEDS: MIRTAZAPINE 7.5 MG TABLET. PO SCH (21:00)
--- NOTE | 2021-03-04 06:10 | PN ---
DATE: 03/03/2021 SUBJECTIVE: The patient was seen today, met with the staff. Chart was reviewed and also covering for Dr. Crystal. Patient's behavior remains the same. Still having visual hallucinations. Continues to be paranoid and suspicious. OBSERVATION: VITAL SIGNS: Temperature 97.7, blood pressure 183/83, pulse 65, respirations 20, O2 sat 97 percent. GENERAL: He slept about 2 hours last night. MEDICATIONS: Seroquel 37.5 mg twice a day, mirtazapine 7.5 mg at night, Seroquel 75 mg at night, Depakote 500 mg 3 times a day, prazosin 5 mg twice a day, BuSpar 5 mg twice a day and also p.r.n. Zyprexa. Patient is not showing any side effects. Patient's labs were reviewed. ASSESSMENT: Major neurocognitive disorder, vascular versus Alzheimer's with delusions, depression and behavioral disturbances. PLAN: To continue with the current treatment plan. Length of stay ten [address]. ERIC [address]: Yanira TID: [id number] [facility]
[2021-03-04 06:42] VITALS: BP 166/66
[2021-03-04] MEDS: INSULIN LISPRO 300 UNITS/3 ML VIAL. SQ SCH ×3 (08:00→17:17)
[2021-03-04] MEDS: CARVEDILOL 12.5 MG TABLET PO SCH ×2 (08:40→17:16)
[2021-03-04] MEDS: dilTIAZem HCL 30 MG TABLET PO SCH ×3 (08:40→19:55)
[2021-03-04] MEDS: DIVALPROEX 125 MG CAP.SPRINK PO SCH ×3 (08:40→19:55)
[2021-03-04] MEDS: QUEtiapine 25 MG TABLET. PO SCH ×3 (08:40→19:55)
[2021-03-04] MEDS: GALANTAMINE 4 MG TABLET PO SCH ×2 (08:41→19:54)
[2021-03-04] MEDS: FUROSEMIDE 20 MG TABLET PO SCH (08:41)
[2021-03-04] MEDS: ASPIRIN ENTERIC COATED 81 MG TABLET.DR. PO SCH (08:41)
[2021-03-04] MEDS: PRAZOSIN 5 MG CAPSULE. PO SCH ×2 (08:41→19:56)
[2021-03-04] MEDS: busPIRone 5 MG TABLET. PO SCH ×2 (08:41→19:55)
[2021-03-04] MEDS: LISINOPRIL 10 MG TABLET PO SCH ×2 (08:41→19:56)
[2021-03-04] MEDS: MULTIVITAMIN with MINERAL TABLET. PO SCH (08:41)
[2021-03-04] MEDS: FERROUS SULFATE 325 MG TABLET. PO SCH ×2 (08:41→19:56)
[2021-03-04] MEDS: NYSTATIN TOPICAL POWDER 15GM BOTTLE. TP SCH ×2 (08:42→19:54)
[2021-03-04] MEDS: SODIUM CHLORIDE 0.65% NASAL SPRAY 45ML BOTTLE. NS SCH ×2 (08:42→19:54)
[2021-03-04] MEDS: CLOPIDOGREL BISULFATE 75 MG TABLET PO SCH (08:42)
[2021-03-04 16:17] VITALS: BP 144/64
[2021-03-04] MEDS: LINAGLIPTIN 5 MG TABLET PO SCH (17:16)
[2021-03-04] MEDS: ATORVASTATIN CALCIUM 20 MG TABLET PO SCH (19:55)
[2021-03-04] MEDS: MIRTAZAPINE 7.5 MG TABLET. PO SCH (19:56)
[2021-03-04] MEDS: INSULIN GLARGINE SYRINGE. SQ SCH (21:42)
[2021-03-04] MEDS: traZODone 100 MG TABLET. PO PRN (22:26)
--- NOTE | 2021-03-05 00:15 | PN ---
DATE: 03/04/2021 SUBJECTIVE: The patient was seen today, met with the staff. Chart was reviewed and also covering for Dr. Crystal. Staff reports no major behavior problems, still having visual hallucinations and tend to be paranoid and suspicious at times. PHYSICAL EXAMINATION: VITAL SIGNS: Temperature 97.3, blood pressure 166/86, pulse 66, respirations 16, O2 sat 93%. Slept about 10 hours last night. GENERAL: The patient's appetite is normal. CURRENT MEDICATIONS: Seroquel 37.5 mg twice a day, mirtazapine 7.5 mg at night, Seroquel 75 mg at night, Depakote 500 mg 3 times a day, prazosin 5 mg twice a day, BuSpar 5 mg twice a day and also on p.r.n. Zyprexa. The patient is not having any side effects. LABORATORY DATA: The patient's lab reviewed. ASSESSMENT: Major neurocognitive disorder, vascular versus Alzheimer's with delusions, depression and behavioral disturbances. PLAN: Continue with the current treatment plan. Length of stay 7 to 10 days. SEA/BOUBACAR/CLARISSA DR: SEA/rose TID: [id number] [facility]
[2021-03-05 06:21] VITALS: BP 101/64
[2021-03-05] MEDS: INSULIN LISPRO 300 UNITS/3 ML VIAL. SQ SCH ×3 (08:00→17:00)
[2021-03-05] MEDS: ASPIRIN ENTERIC COATED 81 MG TABLET.DR. PO SCH (09:00)
[2021-03-05] MEDS: SODIUM CHLORIDE 0.65% NASAL SPRAY 45ML BOTTLE. NS SCH ×2 (09:22→20:11)
[2021-03-05] MEDS: DIVALPROEX 125 MG CAP.SPRINK PO SCH ×3 (09:22→20:12)
[2021-03-05] MEDS: FERROUS SULFATE 325 MG TABLET. PO SCH ×2 (09:23→20:11)
[2021-03-05] MEDS: GALANTAMINE 4 MG TABLET PO SCH ×2 (09:23→20:12)
[2021-03-05] MEDS: CARVEDILOL 12.5 MG TABLET PO SCH ×2 (09:23→17:01)
[2021-03-05] MEDS: CLOPIDOGREL BISULFATE 75 MG TABLET PO SCH (09:24)
[2021-03-05] MEDS: QUEtiapine 25 MG TABLET. PO SCH ×3 (09:24→20:11)
[2021-03-05] MEDS: MULTIVITAMIN with MINERAL TABLET. PO SCH (09:24)
[2021-03-05] MEDS: busPIRone 5 MG TABLET. PO SCH ×2 (09:25→20:11)
[2021-03-05] MEDS: PRAZOSIN 5 MG CAPSULE. PO SCH ×2 (09:25→20:12)
[2021-03-05] MEDS: NYSTATIN TOPICAL POWDER 15GM BOTTLE. TP SCH ×2 (09:25→20:11)
[2021-03-05] MEDS: FUROSEMIDE 20 MG TABLET PO SCH (09:25)
[2021-03-05] MEDS: LISINOPRIL 10 MG TABLET PO SCH ×2 (09:26→20:12)
[2021-03-05] MEDS: dilTIAZem HCL 30 MG TABLET PO SCH ×3 (09:26→20:12)
[2021-03-05 16:31] VITALS: BP 146/82
[2021-03-05] MEDS: LINAGLIPTIN 5 MG TABLET PO SCH (17:01)
[2021-03-05] MEDS: MIRTAZAPINE 7.5 MG TABLET. PO SCH (20:11)
[2021-03-05] MEDS: ATORVASTATIN CALCIUM 20 MG TABLET PO SCH (20:11)
[2021-03-05] MEDS: INSULIN GLARGINE SYRINGE. SQ SCH (20:59)
--- NOTE | 2021-03-06 04:03 | PN ---
DATE: 03/05/2021 SUBJECTIVE: The patient was seen today, met with the staff, chart reviewed. Staff reports no major problems except that he gets confused easily and also dependent on staff for ADLs. The patient continues to have visual hallucinations, mostly seeing his dog in his bed. OBSERVATION: VITAL SIGNS: Temperature 97.4, blood pressure 146/82, pulse 61, respirations 18 and O2 sat 97%. GENERAL: The patient's appetite, normal. Sleeps close to 8-10 hours at night. CURRENT MEDICATIONS: Include Seroquel 37.5 mg twice a day, mirtazapine 7.5 mg at night, Seroquel 75 mg at night, Depakote 500 mg t.i.d., prazosin 5 mg twice a day, buspirone 5 mg twice a day. The patient is also on p.r.n. Zyprexa. The patient is not having any major side effects. LABORATORY DATA: The patient's lab reviewed. ASSESSMENT: Major neurocognitive disorder, vascular versus Alzheimer's with delusions, depression and behavioral disturbances. PLAN: Continue with the current treatment plan. LENGTH OF STAY: 7 to 10 days. SEA/BOUBACAR/CLARISSA DR: SEA/rose TID: [id number]
[2021-03-06 06:09] VITALS: BP 117/77
[2021-03-06] MEDS: INSULIN LISPRO 300 UNITS/3 ML VIAL. SQ SCH ×3 (08:00→17:43)
[2021-03-06] MEDS: NYSTATIN TOPICAL POWDER 15GM BOTTLE. TP SCH ×2 (08:53→21:26)
[2021-03-06] MEDS: QUEtiapine 25 MG TABLET. PO SCH ×3 (08:54→21:18)
[2021-03-06] MEDS: SODIUM CHLORIDE 0.65% NASAL SPRAY 45ML BOTTLE. NS SCH ×2 (08:54→21:25)
[2021-03-06] MEDS: busPIRone 5 MG TABLET. PO SCH ×2 (08:54→21:19)
[2021-03-06] MEDS: DIVALPROEX 125 MG CAP.SPRINK PO SCH ×3 (08:55→21:18)
[2021-03-06] MEDS: dilTIAZem HCL 30 MG TABLET PO SCH ×3 (08:55→21:20)
[2021-03-06] MEDS: CLOPIDOGREL BISULFATE 75 MG TABLET PO SCH (08:55)
[2021-03-06] MEDS: ASPIRIN ENTERIC COATED 81 MG TABLET.DR. PO SCH (08:55)
[2021-03-06] MEDS: GALANTAMINE 4 MG TABLET PO SCH ×2 (08:55→21:19)
[2021-03-06] MEDS: FUROSEMIDE 20 MG TABLET PO SCH (08:55)
[2021-03-06] MEDS: MULTIVITAMIN with MINERAL TABLET. PO SCH (08:55)
[2021-03-06] MEDS: LISINOPRIL 10 MG TABLET PO SCH ×2 (08:56→21:20)
[2021-03-06] MEDS: FERROUS SULFATE 325 MG TABLET. PO SCH ×2 (08:56→21:20)
[2021-03-06] MEDS: PRAZOSIN 5 MG CAPSULE. PO SCH ×2 (08:56→21:19)
[2021-03-06] MEDS: CARVEDILOL 12.5 MG TABLET PO SCH ×2 (08:56→17:41)
[2021-03-06 16:34] VITALS: BP 112/62
[2021-03-06] MEDS: LINAGLIPTIN 5 MG TABLET PO SCH (17:41)
[2021-03-06] MEDS: INSULIN GLARGINE SYRINGE. SQ SCH (21:00)
[2021-03-06] MEDS: MIRTAZAPINE 7.5 MG TABLET. PO SCH (21:19)
[2021-03-06] MEDS: ATORVASTATIN CALCIUM 20 MG TABLET PO SCH (21:20)
--- NOTE | 2021-03-07 02:00 | PN ---
DATE: 03/06/2021 SUBJECTIVE: The patient was seen today, I met with staff and chart reviewed and also covering for Dr. Crystal. Staff reports no major behavior problems. Not having any delusional thinking, but tends to be withdrawn, not presenting with any major behavior problems. The patient continues to have visual and auditory hallucinations. OBSERVATION: VITAL SIGNS: Temperature 97.1, blood pressure 117/77, pulse 66, respirations 18, O2 sat 99%. Slept about 7 hours last night. LABORATORY DATA: The patient's appetite is fair. MEDICATIONS: The patient's current medications include Seroquel 37.5 mg twice a day and 75 mg at night, mirtazapine 7.5 mg at night, trazodone 100 mg at night p.r.n. The patient is also on Depakote Sprinkles 500 mg t.i.d., prazosin 5 mg twice a day, BuSpar 5 mg twice a day and olanzapine 5 mg q. 2 hours p.r.n. LABORATORY DATA: The patient's lab reviewed. ASSESSMENT: Major neurocognitive disorder, vascular versus Alzheimer's with delusions, depression and behavioral disturbances. PLAN: To continue with the treatment. LENGTH OF STAY: Seven days. MAIRA DR: Yanira TID: [id number]
[2021-03-07 05:36] VITALS: BP 126/77
[2021-03-07] MEDS: INSULIN LISPRO 300 UNITS/3 ML VIAL. SQ SCH ×3 (08:00→17:16)
[2021-03-07] MEDS: SODIUM CHLORIDE 0.65% NASAL SPRAY 45ML BOTTLE. NS SCH ×2 (08:37→21:10)
[2021-03-07] MEDS: CARVEDILOL 12.5 MG TABLET PO SCH ×2 (08:38→17:12)
[2021-03-07] MEDS: ASPIRIN ENTERIC COATED 81 MG TABLET.DR. PO SCH (08:39)
[2021-03-07] MEDS: PRAZOSIN 5 MG CAPSULE. PO SCH ×2 (08:39→21:00)
[2021-03-07] MEDS: GALANTAMINE 4 MG TABLET PO SCH ×2 (08:39→21:15)
[2021-03-07] MEDS: FUROSEMIDE 20 MG TABLET PO SCH (08:40)
[2021-03-07] MEDS: MULTIVITAMIN with MINERAL TABLET. PO SCH (08:40)
[2021-03-07] MEDS: CLOPIDOGREL BISULFATE 75 MG TABLET PO SCH (08:40)
[2021-03-07] MEDS: LISINOPRIL 10 MG TABLET PO SCH ×2 (08:40→21:14)
[2021-03-07] MEDS: dilTIAZem HCL 30 MG TABLET PO SCH ×3 (08:40→21:00)
[2021-03-07] MEDS: DIVALPROEX 125 MG CAP.SPRINK PO SCH ×3 (08:41→21:11)
[2021-03-07] MEDS: busPIRone 5 MG TABLET. PO SCH ×2 (08:41→21:15)
[2021-03-07] MEDS: FERROUS SULFATE 325 MG TABLET. PO SCH ×2 (08:41→21:13)
[2021-03-07] MEDS: QUEtiapine 25 MG TABLET. PO SCH ×3 (08:41→21:15)
[2021-03-07] MEDS: NYSTATIN TOPICAL POWDER 15GM BOTTLE. TP SCH ×2 (08:42→21:10)
[2021-03-07 11:54] LABS: BASO % 0 % (0-3); EOS # 0.3 x10^3/uL (0.0-0.7); EOS % 4 % (0-3); HEMATOCRIT 36.8 % (39.0-53.0); LYMPH % 26 % (24-48); MEAN CORPUSCULAR HEMOGLOBIN 30 pg (25-35); MEAN CORPUSCULAR HGB CONC 33 g/dL (31-37); MEAN CORPUSCULAR VOLUME 92 fL (79-100); MONO # 0.8 x10^3/uL (0.0-1.1); MONO % 10 % (0-9); NEUT # 4.7 x10^3uL (1.8-7.7); NEUT % 60 % (31-73); PLATELET COUNT 126 x10^3/uL (140-400); RED BLOOD COUNT 3.98 x10^6/uL (4.30-5.70); RED CELL DISTRIBUTION WIDTH 14.9 % (11.5-14.5); WHITE BLOOD COUNT 7.8 x10^3/uL (4.0-11.0)
[2021-03-07 12:05] LABS: ALBUMIN/GLOBULIN RATIO 0.8 (1.0-1.7); CALCIUM 8.6 mg/dL (8.5-10.1); CREATININE 1.6 mg/dL (0.7-1.3); GFR 51.8; POTASSIUM 4.6 mmol/L (3.5-5.1); TOTAL BILIRUBIN 0.4 mg/dL (0.2-1.0); TOTAL PROTEIN 6.8 g/dL (6.4-8.2)
[2021-03-07 16:25] VITALS: BP 112/66
[2021-03-07] MEDS: LINAGLIPTIN 5 MG TABLET PO SCH (17:12)
--- NOTE | 2021-03-07 18:20 | TX PLAN ---
Interdisciplinary Tx Plan Admission Information Feb 12, 2021 at 08:00 Legal Status (on Admission): Voluntary DPOA/Guardian Name: Raffaele Hawk Contact Other Contact Name: [facility] Other Contact Verified Code Status: Full Code Allergies: Coded Allergies: No Known Drug Allergies (Unverified , 02/12/21) Diagnoses Primary Diagnosis: Major Neurocognitive D/O Reasons for Admission: Aggressive, Agitated, Confusion/Disoriented Problem in Patient's Words: He's getting more delusional Additional Admission Comments: According to the intake, pt is being aggressive towards staff, cursing, threatening peer, confused, angry and irritable Problems Active Problems: delusional agitated confused Inactive Problems: Medication compliant Pt Strengths/Limitations Ability for [place]: Poor Cognitive Functioning/Ability: Fair Communication Skills/Ability: Fair Financial Resources: Fair Insight/Judgement: Poor Intellectual Ability: Fair Physical Health: Poor Social Skills: Poor Stability in Family: Fair Stability in School/Work: Poor Verbal Skills: Fair Discharge Criteria Discharge Criteria: No need for close observ., Adequate arrangements @DC, Improved behavior, Improved mood/thought Preliminary Discharge Plan Preliminary DC Plan: Current Living Arrange. Special Precautions Fall Risk: Moderate Initial D/C Plan Will return to [facility] once stable. Identified Discharge Needs: Psychiatric follow-up Currently Utilized Resources Currently Utilized Resources/P: Primary Care Physician Referrals Community Resources: Psychiatric follow-up Identified Problems/Hx/Goals Objectives/Short-Term Goals Short Term Goals: Dec. Aggression, Dec. Outbursts, Improved Social Skills, Medication Stabilization, Promote Coping Skill Short Term Goals in Patient's: N/A Interventions/Frequency Staff Interventions/Frequency&: Psychiatrist to assess pt at least 3x per week for medication mgmt Social Work to assess pt at least 2x per week to identify barriers to care and finalize discharge planning. Nursing to assess medication mgmt, behavior modification and complete 15 minute checks daily. Encourage participation in group activities (if applicable) or 1:1 engagement based off activity dept goals. 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 Education: Last grade completed was high school (12th) Community Follow-up Primary Care physician as set up by pt facility Treatment Plan Explained Patient/Outreach Worker had this treatment plan explained to him/her as indicated by the signature below and has been given the opportunity to ask questions and make suggestions: Date: Patient/Outreach Worker Signature: Status Update Update Pt is eating 75% of meals and sleeping on average 6.5 hours per night. Pt is alert, cooperative with cares and medications. However, pt is delusional and voicing concerns that one of the peers on the unit is going to kill him Pt also displayed some paranoia in groups as well when he is present. Pt will look at discharging pt back to [facility] Monday 03/12. COLTON RILEY March 07, 2021 18:20
[2021-03-07] MEDS: INSULIN GLARGINE SYRINGE. SQ SCH (21:11)
[2021-03-07] MEDS: ATORVASTATIN CALCIUM 20 MG TABLET PO SCH (21:12)
[2021-03-07] MEDS: traZODone 100 MG TABLET. PO PRN (21:13)
[2021-03-07] MEDS: MIRTAZAPINE 7.5 MG TABLET. PO SCH (21:15)
--- NOTE | 2021-03-08 04:13 | PN ---
DATE: 03/07/2021 SUBJECTIVE: The patient was seen today, met with the staff, chart reviewed and also participated in a treatment review meeting. The patient has been compliant with medications, not exhibiting any major behavior problems. He still tends to be paranoid at times, not trusting anyone and continues to have visual hallucinations. OBSERVATION: Vital Signs: Temperature 96.9, blood pressure 126/77, pulse 51, respirations 16, O2 sat 96%. Slept about 6-1/2 hours last night. The patient's appetite is fair. CURRENT MEDICATIONS: Include Seroquel 37.5 mg twice a day and 75 mg at night, mirtazapine 7.5 mg at night, trazodone 100 mg at night p.r.n. The patient is also on Depakote Sprinkles 500 mg t.i.d., prazosin 5 mg twice a day, buspirone 5 mg twice a day and olanzapine 5 mg q. 2 hours p.r.n. The patient's lab reviewed. ASSESSMENT: Major neurocognitive disorder, vascular versus Alzheimer's with delusions, depression and behavioral disturbances. PLAN: To continue with the treatment. LENGTH OF STAY: [address]: Yanira TID: [id number]
[2021-03-08 05:49] VITALS: BP 150/82
[2021-03-08] MEDS: INSULIN LISPRO 300 UNITS/3 ML VIAL. SQ SCH ×3 (08:00→17:00)
[2021-03-08] MEDS: CARVEDILOL 12.5 MG TABLET PO SCH ×2 (08:41→16:54)
[2021-03-08] MEDS: dilTIAZem HCL 30 MG TABLET PO SCH ×4 (08:42→21:00)
[2021-03-08] MEDS: CHOLECALCIFEROL (VITAMIN D3) 50,000 UNIT CAPSULE PO SCH (08:42)
[2021-03-08] MEDS: SODIUM CHLORIDE 0.65% NASAL SPRAY 45ML BOTTLE. NS SCH ×3 (08:42→21:00)
[2021-03-08] MEDS: CLOPIDOGREL BISULFATE 75 MG TABLET PO SCH (08:42)
[2021-03-08] MEDS: FUROSEMIDE 20 MG TABLET PO SCH (08:42)
[2021-03-08] MEDS: GALANTAMINE 4 MG TABLET PO SCH ×3 (08:43→21:00)
[2021-03-08] MEDS: PRAZOSIN 5 MG CAPSULE. PO SCH ×3 (08:43→21:00)
[2021-03-08] MEDS: busPIRone 5 MG TABLET. PO SCH ×3 (08:43→21:00)
[2021-03-08] MEDS: DIVALPROEX 125 MG CAP.SPRINK PO SCH ×4 (08:43→21:00)
[2021-03-08] MEDS: FERROUS SULFATE 325 MG TABLET. PO SCH ×3 (08:43→21:00)
[2021-03-08] MEDS: MULTIVITAMIN with MINERAL TABLET. PO SCH (08:43)
[2021-03-08] MEDS: ASPIRIN ENTERIC COATED 81 MG TABLET.DR. PO SCH (08:43)
[2021-03-08] MEDS: QUEtiapine 25 MG TABLET. PO SCH ×4 (08:44→21:00)
[2021-03-08] MEDS: LISINOPRIL 10 MG TABLET PO SCH ×3 (08:44→21:00)
[2021-03-08] MEDS: NYSTATIN TOPICAL POWDER 15GM BOTTLE. TP SCH ×3 (09:00→21:00)
[2021-03-08 16:06] VITALS: BP 162/79
[2021-03-08] MEDS: LINAGLIPTIN 5 MG TABLET PO SCH (16:53)
[2021-03-08] MEDS: ATORVASTATIN CALCIUM 20 MG TABLET PO SCH ×2 (20:38→21:00)
[2021-03-08] MEDS: traZODone 100 MG TABLET. PO PRN (20:42)
[2021-03-08] MEDS: MIRTAZAPINE 7.5 MG TABLET. PO SCH ×2 (20:43→21:00)
[2021-03-08] MEDS: INSULIN GLARGINE SYRINGE. SQ SCH (20:44)
--- NOTE | 2021-03-09 01:58 | PN ---
DATE: 03/08/2021 SUBJECTIVE: The patient was seen today, met with the staff, chart reviewed. Also covering for Dr. Crystal. Staff reports no major behavior problems. The patient complains of hearing loss in his left ear. The patient has occasional problems with visual hallucinations, also some confusion. PHYSICAL EXAMINATION: VITAL SIGNS: Temperature 98.2, blood pressure 150/82, pulse 74, respirations 20, O2 sat 95%. Slept about 2 hours last night. CURRENT MEDICATIONS: Remains the same. Not having any side effects. LABORATORY DATA: The patient's lab reviewed. ASSESSMENT: Major neurocognitive disorder, vascular versus Alzheimer's with delusion, depression, and behavioral disturbances. PLAN: To continue with the treatment. LENGTH OF STAY: Seven days. DEREK DR: Yanira TID: [id number]
[2021-03-09 05:48] VITALS: BP 138/78
[2021-03-09] MEDS: INSULIN LISPRO 300 UNITS/3 ML VIAL. SQ SCH ×3 (08:00→17:39)
[2021-03-09] MEDS: SODIUM CHLORIDE 0.65% NASAL SPRAY 45ML BOTTLE. NS SCH ×2 (08:28→19:46)
[2021-03-09] MEDS: NYSTATIN TOPICAL POWDER 15GM BOTTLE. TP SCH ×2 (08:28→19:46)
[2021-03-09] MEDS: GALANTAMINE 4 MG TABLET PO SCH ×2 (08:29→19:49)
[2021-03-09] MEDS: MULTIVITAMIN with MINERAL TABLET. PO SCH (08:29)
[2021-03-09] MEDS: ASPIRIN ENTERIC COATED 81 MG TABLET.DR. PO SCH (08:30)
[2021-03-09] MEDS: FUROSEMIDE 20 MG TABLET PO SCH (08:30)
[2021-03-09] MEDS: FERROUS SULFATE 325 MG TABLET. PO SCH ×2 (08:30→19:48)
[2021-03-09] MEDS: PRAZOSIN 5 MG CAPSULE. PO SCH ×2 (08:30→19:46)
[2021-03-09] MEDS: CLOPIDOGREL BISULFATE 75 MG TABLET PO SCH (08:30)
[2021-03-09] MEDS: busPIRone 5 MG TABLET. PO SCH ×2 (08:30→19:46)
[2021-03-09] MEDS: dilTIAZem HCL 30 MG TABLET PO SCH ×3 (08:31→19:49)
[2021-03-09] MEDS: DIVALPROEX 125 MG CAP.SPRINK PO SCH ×3 (08:31→19:51)
[2021-03-09] MEDS: LISINOPRIL 10 MG TABLET PO SCH ×2 (08:31→19:47)
[2021-03-09] MEDS: QUEtiapine 25 MG TABLET. PO SCH ×3 (08:32→19:50)
[2021-03-09] MEDS: CARVEDILOL 12.5 MG TABLET PO SCH ×2 (08:32→16:28)
[2021-03-09 15:53] VITALS: BP 147/69
[2021-03-09] MEDS: LINAGLIPTIN 5 MG TABLET PO SCH (16:28)
[2021-03-09] MEDS: MIRTAZAPINE 7.5 MG TABLET. PO SCH (19:47)
[2021-03-09] MEDS: ATORVASTATIN CALCIUM 20 MG TABLET PO SCH (19:49)
[2021-03-09] MEDS: traZODone 100 MG TABLET. PO PRN (19:49)
[2021-03-09] MEDS: INSULIN GLARGINE SYRINGE. SQ SCH (19:50)
--- NOTE | 2021-03-10 00:03 | PN ---
DATE: 03/09/2021 SUBJECTIVE: The patient was seen today met with the staff. Chart reviewed and also covering for Dr. Crystal. The patient reports no major medical problems. The patient is able to interact with the staff, pleasant today. Staff reports he was very drowsy this morning when he woke up and had problems following directions and his medication last night was held because of his sedation. CURRENT MEDICATIONS: Include Seroquel 37.5 mg twice a day, mirtazapine 7.5 mg at night, Seroquel 75 mg at night, Depakote 500 mg t.i.d., prazosin 5 mg twice a day, BuSpar 5 mg b.i.d. LABORATORY DATA: The patient's lab reviewed. The patient's Depakote level was 66. 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 PLAN: To continue with the treatment. LENGTH OF STAY: Seven days. SEA DR: Yanira TID: [id number]
[2021-03-10 06:18] VITALS: BP 177/73
[2021-03-10] MEDS: INSULIN LISPRO 300 UNITS/3 ML VIAL. SQ SCH ×3 (08:00→17:43)
[2021-03-10] MEDS: CLOPIDOGREL BISULFATE 75 MG TABLET PO SCH (08:59)
[2021-03-10] MEDS: GALANTAMINE 4 MG TABLET PO SCH ×2 (08:59→21:00)
[2021-03-10] MEDS: SODIUM CHLORIDE 0.65% NASAL SPRAY 45ML BOTTLE. NS SCH ×2 (08:59→20:59)
[2021-03-10] MEDS: FERROUS SULFATE 325 MG TABLET. PO SCH ×2 (08:59→21:00)
[2021-03-10] MEDS: MULTIVITAMIN with MINERAL TABLET. PO SCH (09:00)
[2021-03-10] MEDS: ASPIRIN ENTERIC COATED 81 MG TABLET.DR. PO SCH (09:00)
[2021-03-10] MEDS: busPIRone 5 MG TABLET. PO SCH ×2 (09:00→21:00)
[2021-03-10] MEDS: NYSTATIN TOPICAL POWDER 15GM BOTTLE. TP SCH ×2 (09:00→20:59)
[2021-03-10] MEDS: FUROSEMIDE 20 MG TABLET PO SCH (09:00)
[2021-03-10] MEDS: PRAZOSIN 5 MG CAPSULE. PO SCH ×2 (09:00→21:12)
[2021-03-10] MEDS: DIVALPROEX 125 MG CAP.SPRINK PO SCH ×3 (09:01→21:00)
[2021-03-10] MEDS: CARVEDILOL 12.5 MG TABLET PO SCH ×2 (09:01→17:41)
[2021-03-10] MEDS: LISINOPRIL 10 MG TABLET PO SCH ×2 (09:01→21:13)
[2021-03-10] MEDS: QUEtiapine 25 MG TABLET. PO SCH ×3 (09:01→21:00)
[2021-03-10] MEDS: dilTIAZem HCL 30 MG TABLET PO SCH ×3 (09:02→21:12)
[2021-03-10 16:04] VITALS: BP 118/72
[2021-03-10] MEDS: LINAGLIPTIN 5 MG TABLET PO SCH (17:41)
[2021-03-10] MEDS: MIRTAZAPINE 7.5 MG TABLET. PO SCH (20:59)
[2021-03-10] MEDS: ATORVASTATIN CALCIUM 20 MG TABLET PO SCH (21:00)
[2021-03-10] MEDS: INSULIN GLARGINE SYRINGE. SQ SCH (21:04)
[2021-03-10 21:13] VITALS: BP 179/93
--- NOTE | 2021-03-10 23:42 | PN ---
DATE: 03/10/2021 SUBJECTIVE: The patient was seen today, met with the staff. Chart reviewed and also covering for Dr. Crystal. Staff reports increased confusion, disorganized thinking, intermittently yelling out most of the night. Apparently, he is also having problems with the visual and auditory hallucinations, mostly at night. OBSERVATION: VITAL SIGNS: Temperature 98.5, blood pressure 177/73, pulse 80, respirations 18, O2 sat 95%. GENERAL: Slept less than one hour last night. MEDICATIONS AND LABS: Reviewed, not having any side effects. 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 PLAN: To continue with the treatment. LENGTH OF STAY: Seven days. TRE DR: Yanira TID: [id number]
[2021-03-11 06:04] VITALS: BP 153/75
[2021-03-11] MEDS: INSULIN LISPRO 300 UNITS/3 ML VIAL. SQ SCH ×3 (08:00→17:17)
[2021-03-11] MEDS: MULTIVITAMIN with MINERAL TABLET. PO SCH (08:43)
[2021-03-11] MEDS: GALANTAMINE 4 MG TABLET PO SCH ×2 (08:43→20:43)
[2021-03-11] MEDS: CLOPIDOGREL BISULFATE 75 MG TABLET PO SCH (08:43)
[2021-03-11] MEDS: FERROUS SULFATE 325 MG TABLET. PO SCH ×2 (08:43→20:43)
[2021-03-11] MEDS: SODIUM CHLORIDE 0.65% NASAL SPRAY 45ML BOTTLE. NS SCH ×2 (08:43→20:42)
[2021-03-11] MEDS: busPIRone 5 MG TABLET. PO SCH ×2 (08:43→20:44)
[2021-03-11] MEDS: FUROSEMIDE 20 MG TABLET PO SCH (08:43)
[2021-03-11] MEDS: ASPIRIN ENTERIC COATED 81 MG TABLET.DR. PO SCH (08:43)
[2021-03-11] MEDS: NYSTATIN TOPICAL POWDER 15GM BOTTLE. TP SCH ×2 (08:43→20:42)
[2021-03-11] MEDS: QUEtiapine 25 MG TABLET. PO SCH ×3 (08:44→20:44)
[2021-03-11] MEDS: PRAZOSIN 5 MG CAPSULE. PO SCH ×2 (08:44→20:43)
[2021-03-11] MEDS: LISINOPRIL 10 MG TABLET PO SCH ×2 (08:44→20:43)
[2021-03-11] MEDS: DIVALPROEX 125 MG CAP.SPRINK PO SCH ×3 (08:45→20:43)
[2021-03-11] MEDS: dilTIAZem HCL 30 MG TABLET PO SCH ×3 (08:45→20:42)
[2021-03-11] MEDS: CARVEDILOL 12.5 MG TABLET PO SCH ×2 (08:45→17:07)
[2021-03-11 15:58] VITALS: BP 115/65
[2021-03-11] MEDS: LINAGLIPTIN 5 MG TABLET PO SCH (17:06)
[2021-03-11 20:21] VITALS: BP 159/73
[2021-03-11] MEDS: MIRTAZAPINE 7.5 MG TABLET. PO SCH (20:43)
[2021-03-11] MEDS: ATORVASTATIN CALCIUM 20 MG TABLET PO SCH (20:43)
[2021-03-11] MEDS: INSULIN GLARGINE SYRINGE. SQ SCH (22:19)
--- NOTE | 2021-03-12 03:25 | PN ---
DATE: 03/11/2021 SUBJECTIVE: The patient was seen today, met with the staff. Chart reviewed and also covering for Dr. Crystal. Staff reports that the patient is sleeping, even during the daytime, no behavioral changes. Recently, he has not had any hallucinations. He is medication compliant. Having trouble swallowing. The patient admits he had episodic nightmares at night. The patient's behavior has improved and he is not depressed. OBSERVATION: VITAL SIGNS: Temperature 96.9, blood pressure 153/75, pulse 66, respirations 16, O2 sat 99%. Slept about 9 hours last night. The patient's appetite improved. MEDICATIONS: The patient's medications reviewed and not having any side effects. LABORATORY DATA: The patient's lab reviewed. 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 PLAN: To continue with the treatment. LENGTH OF STAY: Seven days. CLARISA DR: Yanira TID: [id number]
[2021-03-12 06:15] VITALS: BP 115/76
[2021-03-12] MEDS: INSULIN LISPRO 300 UNITS/3 ML VIAL. SQ SCH ×3 (08:00→17:10)
[2021-03-12] MEDS: SODIUM CHLORIDE 0.65% NASAL SPRAY 45ML BOTTLE. NS SCH ×2 (08:48→21:16)
[2021-03-12] MEDS: DIVALPROEX 125 MG CAP.SPRINK PO SCH ×3 (08:48→21:14)
[2021-03-12] MEDS: NYSTATIN TOPICAL POWDER 15GM BOTTLE. TP SCH ×2 (08:48→21:16)
[2021-03-12] MEDS: ASPIRIN ENTERIC COATED 81 MG TABLET.DR. PO SCH (08:49)
[2021-03-12] MEDS: GALANTAMINE 4 MG TABLET PO SCH ×2 (08:49→21:15)
[2021-03-12] MEDS: CLOPIDOGREL BISULFATE 75 MG TABLET PO SCH (08:49)
[2021-03-12] MEDS: FERROUS SULFATE 325 MG TABLET. PO SCH ×2 (08:49→21:15)
[2021-03-12] MEDS: dilTIAZem HCL 30 MG TABLET PO SCH ×3 (08:49→21:16)
[2021-03-12] MEDS: busPIRone 5 MG TABLET. PO SCH ×2 (08:49→21:15)
[2021-03-12] MEDS: MULTIVITAMIN with MINERAL TABLET. PO SCH (08:49)
[2021-03-12] MEDS: FUROSEMIDE 20 MG TABLET PO SCH (08:50)
[2021-03-12] MEDS: LISINOPRIL 10 MG TABLET PO SCH ×2 (08:50→21:16)
[2021-03-12] MEDS: CARVEDILOL 12.5 MG TABLET PO SCH ×2 (08:50→17:09)
[2021-03-12] MEDS: PRAZOSIN 5 MG CAPSULE. PO SCH ×2 (09:00→21:15)
[2021-03-12] MEDS: QUEtiapine 25 MG TABLET. PO SCH ×3 (09:00→21:15)
[2021-03-12 12:19] VITALS: BP 146/73
[2021-03-12] MEDS: LINAGLIPTIN 5 MG TABLET PO SCH (17:08)
[2021-03-12] MEDS ORDERED: VITS A & D/LANOLIN TOPICAL OINTMENT 42GM TUBE. TP PRN (18:15)
[2021-03-12 18:45] VITALS: BP 154/85
[2021-03-12] MEDS: ATORVASTATIN CALCIUM 20 MG TABLET PO SCH (21:15)
[2021-03-12] MEDS: MIRTAZAPINE 7.5 MG TABLET. PO SCH (21:16)
[2021-03-12] MEDS: INSULIN GLARGINE SYRINGE. SQ SCH (21:17)
[2021-03-13 06:00] VITALS: BP 126/74
[2021-03-13] MEDS: INSULIN LISPRO 300 UNITS/3 ML VIAL. SQ SCH ×3 (08:00→17:30)
[2021-03-13] MEDS: SODIUM CHLORIDE 0.65% NASAL SPRAY 45ML BOTTLE. NS SCH ×2 (08:50→21:52)
[2021-03-13] MEDS: busPIRone 5 MG TABLET. PO SCH ×2 (08:51→21:42)
[2021-03-13] MEDS: dilTIAZem HCL 30 MG TABLET PO SCH ×3 (08:51→21:41)
[2021-03-13] MEDS: PRAZOSIN 5 MG CAPSULE. PO SCH ×2 (08:51→21:42)
[2021-03-13] MEDS: MULTIVITAMIN with MINERAL TABLET. PO SCH (08:51)
[2021-03-13] MEDS: LISINOPRIL 10 MG TABLET PO SCH ×2 (08:52→21:43)
[2021-03-13] MEDS: FERROUS SULFATE 325 MG TABLET. PO SCH ×2 (08:52→21:43)
[2021-03-13] MEDS: ASPIRIN ENTERIC COATED 81 MG TABLET.DR. PO SCH (08:52)
[2021-03-13] MEDS: DIVALPROEX 125 MG CAP.SPRINK PO SCH ×3 (08:52→21:41)
[2021-03-13] MEDS: QUEtiapine 25 MG TABLET. PO SCH ×3 (08:52→21:42)
[2021-03-13] MEDS: GALANTAMINE 4 MG TABLET PO SCH ×2 (08:52→21:43)
[2021-03-13] MEDS: CLOPIDOGREL BISULFATE 75 MG TABLET PO SCH (08:52)
[2021-03-13] MEDS: FUROSEMIDE 20 MG TABLET PO SCH (08:52)
[2021-03-13] MEDS: CARVEDILOL 12.5 MG TABLET PO SCH ×2 (08:53→17:31)
[2021-03-13] MEDS: NYSTATIN TOPICAL POWDER 15GM BOTTLE. TP SCH ×2 (08:56→21:51)
[2021-03-13 16:19] VITALS: BP 153/80
[2021-03-13] MEDS: LINAGLIPTIN 5 MG TABLET PO SCH (17:31)
[2021-03-13] MEDS: ATORVASTATIN CALCIUM 20 MG TABLET PO SCH (21:41)
[2021-03-13] MEDS: MIRTAZAPINE 7.5 MG TABLET. PO SCH (21:41)
--- NOTE | 2021-03-13 21:46 | DS ---
DATE OF DISCHARGE: 03/13/2021 PROGRESS NOTE AND DISCHARGE SUMMARY FINAL DIAGNOSES: AXIS I: 1. Major neurocognitive disorder, vascular, Alzheimer's with delusions, depression and behavioral disturbances. 2. Anxiety disorder, unspecified. AXIS II: None. AXIS III: Hypertension, hyperlipidemia, atrial fibrillation, congestive heart failure, status post right cerebrovascular accident with left hemiparesis, generalized muscle weakness. REASON FOR ADMISSION: This 70-year-old -[place] male was [facility] through emergency room and was brought here from [facility] because of dementia. Also, depression, anxiety and also psychotic symptoms. Lately he has been increasingly agitated, cursing at the staff, threatening staff and threatening to hit peers. He was also confused at times, angry, having significant mood swings, uncontrollable anger at times. HISTORY OF PRESENT ILLNESS: The patient apparently has been at this facility in April of 2018 with similar problems and also Dr. Crystal has been following him up at the senior care. The patient also had problems with his sleep and appetite variations. HOSPITAL COURSE: The patient had a physical exam, routine lab work including CBC, chem profile with urinalysis. The patient's hemoglobin was 12. The patient's blood sugar fluctuated, mostly in the 200s. The patient's Depakote level was 66. The patient's urinalysis was within normal range. The patient was involved in a program including individual therapy, group therapy and activity therapy. The patient because of his hemiplegia, he was not able to ambulate. The patient also had considerable difficulty interacting with the staff, mostly with eye contact and able to hold some conversation. The patient also had episodes of behavior problems, increased agitation and also having visual hallucinations often. DISCHARGE MEDICATIONS: The patient's medications included Seroquel 37.5 mg twice a day, 75 mg at night; mirtazapine 7.5 mg at night; Depakote 500 mg 3 times a day; Razadyne 4 mg twice a day; prazosin 5 mg twice a day; lisinopril 20 mg twice a day; Lantus 50 units at night subcutaneously; ferrous sulfate 325 mg twice a day; BuSpar 5 mg twice a day; Coreg 25 mg twice a day; and Lipitor 20 mg at night. The patient was also on Tradjenta 5 mg daily, Cardizem 60 mg 3 times a day. The patient was also on olanzapine 5 mg q. 2 hours p.r.n. Also glucagon 1 mg p.r.n. every 15 minutes IM for low blood sugar. He was also on Ventolin inhaler q. 6 hours p.r.n. The patient did not have any side effects to the medications. The patient did not have any falls. AFTERCARE PLANS: The patient at the time of discharge was medically stable. The patient's behavior is much improved. The patient was not depressed. No evidence of any suicidal or homicidal behaviors. The patient was compliant with the treatment. The patient will return to [facility] with a recommendation to continue to see a psychiatrist and the primary care doctor and continue with the medications listed above. MAIRA DR: Yanira TID: [id number]
[2021-03-13] MEDS: INSULIN GLARGINE SYRINGE. SQ SCH (21:51)
[2021-03-14] MEDS ORDERED: QUET50TA5 PO (01:29)
[2021-03-14] MEDS ORDERED: OLAN5TAB99 PO (01:30)
[2021-03-14] MEDS ORDERED: MIRT-37 PO (01:46)
[2021-03-14] MEDS ORDERED: TRAZ-125 PO (01:48)
[2021-03-14] MEDS ORDERED: NYST15PO9 TP (01:52)
[2021-03-14] MEDS ORDERED: MAGN24003 PO (01:54)
[2021-03-14] MEDS ORDERED: MAG-124 PO (01:55)
[2021-03-14] MEDS ORDERED: VITS42.55 TP (01:57)
[2021-03-14 05:48] VITALS: BP 131/82
[2021-03-14] MEDS: INSULIN LISPRO 300 UNITS/3 ML VIAL. SQ SCH ×2 (08:00→12:00)
[2021-03-14] MEDS: SODIUM CHLORIDE 0.65% NASAL SPRAY 45ML BOTTLE. NS SCH (08:49)
[2021-03-14] MEDS: GALANTAMINE 4 MG TABLET PO SCH (08:50)
[2021-03-14] MEDS: FERROUS SULFATE 325 MG TABLET. PO SCH (08:50)
[2021-03-14] MEDS: busPIRone 5 MG TABLET. PO SCH (08:50)
[2021-03-14] MEDS: MULTIVITAMIN with MINERAL TABLET. PO SCH (08:50)
[2021-03-14] MEDS: CLOPIDOGREL BISULFATE 75 MG TABLET PO SCH (08:50)
[2021-03-14] MEDS: ASPIRIN ENTERIC COATED 81 MG TABLET.DR. PO SCH (08:50)
[2021-03-14] MEDS: DIVALPROEX 125 MG CAP.SPRINK PO SCH ×2 (08:50→13:31)
[2021-03-14] MEDS: PRAZOSIN 5 MG CAPSULE. PO SCH (08:51)
[2021-03-14] MEDS: FUROSEMIDE 20 MG TABLET PO SCH (08:51)
[2021-03-14] MEDS: QUEtiapine 25 MG TABLET. PO SCH ×2 (08:52→13:31)
[2021-03-14] MEDS: dilTIAZem HCL 30 MG TABLET PO SCH ×2 (08:52→13:31)
[2021-03-14] MEDS: LISINOPRIL 10 MG TABLET PO SCH (08:52)
[2021-03-14] MEDS: CARVEDILOL 12.5 MG TABLET PO SCH (08:53)
[2021-03-14] MEDS: NYSTATIN TOPICAL POWDER 15GM BOTTLE. TP SCH (09:00)
[2021-03-14 09:51] LABS: BASO % 0 % (0-3); EOS # 0.2 x10^3/uL (0.0-0.7); EOS % 2 % (0-3); HEMOGLOBIN 12.2 g/dL (13.0-17.5); LYMPH # 1.5 x10^3/uL (1.0-4.8); LYMPH % 17 % (24-48); MEAN CORPUSCULAR HEMOGLOBIN 31 pg (25-35); MEAN CORPUSCULAR HGB CONC 33 g/dL (31-37); MEAN CORPUSCULAR VOLUME 93 fL (79-100); MONO # 1.1 x10^3/uL (0.0-1.1); MONO % 12 % (0-9); NEUT # 6.2 x10^3uL (1.8-7.7); NEUT % 68 % (31-73); PLATELET COUNT 129 x10^3/uL (140-400); RED BLOOD COUNT 3.97 x10^6/uL (4.30-5.70); RED CELL DISTRIBUTION WIDTH 14.6 % (11.5-14.5); WHITE BLOOD COUNT 9.1 x10^3/uL (4.0-11.0)
[2021-03-14 10:05] LABS: ALBUMIN/GLOBULIN RATIO 0.8 (1.0-1.7); CALCIUM 8.6 mg/dL (8.5-10.1); CREATININE 1.5 mg/dL (0.7-1.3); GFR 55.8; POTASSIUM 4.8 mmol/L (3.5-5.1); TOTAL BILIRUBIN 0.3 mg/dL (0.2-1.0); TOTAL PROTEIN 6.9 g/dL (6.4-8.2)
[2021-03-14 16:18] VITALS: BP 117/73
--- NOTE | 2021-03-20 08:01 | PDOC ---
Exam Note: [place] Note: This note is a late entry for 03/01/2021 covers elements not covered in my initial note. Subjective: This note was initially completed on 03/01/2021 but cannot be retrieved in the electronic medical system and is being re-dictated today 03/19/2021. The patient was seen individually in the evening of 03/01/2021 with Donavan KWOK, discussed and reviewed the chart. He has been yelling at times, agitated but less paranoid, though he does get suspicious, believes one of the other patients may be trying to hurt him. Review of Systems: Ambulation impaired in wheelchair. No CV, , pulmonary, eye, ENT system symptoms on review. Mental Status Exam: The patient is oriented to himself. Speech coherent. Abstraction fair. Attention span short. Language function intact. Insight limited. Judgment impaired. Laboratory Data: Reviewed. Impression: Major neurocognitive disorder Alzheimer vascular with delusion, depression, behavioral disturbance. Anxiety disorder unspecified. Impulse control disorder unspecified. Plan: No change from initial note. Dr. Sandoval will cover for me starting from 03/02/2021 at 8 a.m. till 03/17/2021 at 8 p.m. Assessment: Vital Signs/I&O: Vital Signs Date Time Temp Pulse Resp B/P (MAP) Pulse Ox O2 Delivery O2 Flow Rate FiO2 03/14/21 16:18 97.8 67 18 117/73 (88) 96 Room Air Current Medications: Meds: Current Medications Medications (Trade) Dose Ordered Sig/Romeo Route PRN Reason Start Time Stop Time Status Last Admin Dose Admin Hydralazine HCl (Apresoline) 20 mg 1X ONCE IV 02/12/21 02:30 02/12/21 02:24 DC Hydralazine HCl (Apresoline) 10 mg 1X ONCE IV 02/12/21 02:30 02/12/21 02:31 DC 02/12/21 02:35 Hydralazine HCl (Apresoline) 10 mg 1X ONCE IV 02/12/21 03:15 02/12/21 03:16 DC 02/12/21 03:21 Midazolam HCl (Versed) 2.5 mg 1X ONCE IV 02/12/21 05:00 02/12/21 05:01 DC 02/12/21 04:53 Acetaminophen (Tylenol) 650 mg PRN Q6HRS PRN PO MILD PAIN / TEMP > 100.3'F 02/12/21 10:00 03/14/21 17:56 DC 02/18/21 22:22 Multi-Ingredient Ointment (Analgesic Sedley) 1 abby PRN QID PRN TP MUSCLE PAIN 02/12/21 10:00 03/14/21 17:56 DC Al Hydroxide/Mg Hydroxide (Mylanta Plus Xs) 15 ml PRN AFTMEALHC PRN PO DYSPEPSIA 02/12/21 10:00 03/14/21 17:56 DC Magnesium Hydroxide (Milk Of Magnesia) 2,400 mg PRN QHS PRN PO CONSTIPATION 02/12/21 10:00 03/14/21 17:56 DC 03/09/21 06:26 Acetaminophen (Tylenol) 650 mg PRN Q6HRS PRN PO MILD PAIN / TEMP > 100.3'F 02/12/21 12:15 Cancel Albuterol Sulfate (Ventolin) 2.5 mg PRN Q6HRS PRN INH SHORTNESS OF BREATH 02/12/21 12:15 03/14/21 17:56 DC Aspirin (Aspirin Enteric Coated) 81 mg DAILY PO 02/13/21 09:00 03/14/21 17:56 DC 03/14/21 08:50 Atorvastatin Calcium (Lipitor) 20 mg QHS PO 02/12/21 21:00 03/14/21 17:56 DC 03/13/21 21:41 Buspirone HCl (Buspar) 5 mg BID PO 02/12/21 21:00 03/14/21 17:56 DC 03/14/21 08:50 Vitamin D (Vitamin D3) 50,000 unit QFR PO 02/15/21 16:00 03/14/21 17:56 DC 03/08/21 08:42 Clopidogrel Bisulfate (Plavix) 75 mg DAILY PO 02/13/21 09:00 03/14/21 17:56 DC 03/14/21 08:50 Divalproex Sodium (Depakote Sprinkles) 375 mg TID@0900,1300,1700 PO 02/12/21 13:00 02/13/21 15:22 DC 02/13/21 12:47 Ferrous Sulfate (Feosol) 325 mg BID PO 02/12/21 21:00 03/14/21 17:56 DC 03/14/21 08:50 Furosemide (Lasix) 20 mg DAILY PO 02/13/21 09:00 03/14/21 17:56 DC 03/14/21 08:51 Hydralazine HCl (Apresoline) 12.5 mg PRN Q6HRS PRN PO htn 02/12/21 12:15 03/14/21 17:56 DC Insulin Glargine (Lantus Syringe) 50 unit HS SQ 02/12/21 21:00 03/14/21 17:56 DC 03/13/21 21:51 Lisinopril (Prinivil) 20 mg BID PO 02/12/21 21:00 03/14/21 17:56 DC 03/14/21 08:52 Multivitamins/ Calcium (Thera-M Plus) 1 tab DAILY PO 02/13/21 09:00 03/14/21 17:56 DC 03/14/21 08:50 Ondansetron HCl (Zofran Odt) 4 mg PRN Q6HRS PRN PO NAUSEA/VOMITING 02/12/21 12:15 03/14/21 17:56 DC Prazosin HCl (Minipress) 5 mg BID PO 02/12/21 21:00 03/14/21 17:56 DC 03/14/21 08:51 Quetiapine Fumarate (SEROquel) 50 mg DAILY PO 02/13/21 09:00 02/14/21 18:03 DC 02/14/21 05:31 Sodium Chloride (Saline Mist Nasal) 1 abby BID NS 02/12/21 21:00 03/14/21 17:56 DC 03/14/21 08:49 Carvedilol (Coreg) 25 mg BIDWMEALS PO 02/12/21 17:00 03/14/21 17:56 DC 03/14/21 08:53 Diltiazem HCl (Cardizem) 60 mg TID PO 02/12/21 14:00 03/14/21 17:56 DC 03/14/21 13:31 Galantamine Hydrobromide (Razadyne) 4 mg BID PO 02/12/21 21:00 03/14/21 17:56 DC 03/14/21 08:50 Glucagon (Glucagen Kit) 1 mg PRN Q15MIN PRN IM LOW BLOOD SUGAR 02/12/21 13:15 03/14/21 17:56 DC Non-Formulary Medication (Insulin Aspart (Novolog)) 70-150 Give 0 un... TIDWMEALS SQ 02/12/21 17:00 02/13/21 17:11 DC Loperamide HCl (Imodium) 2 mg PRN Q2HRS PRN PO DIARRHEA 02/12/21 13:15 03/14/21 17:56 DC Non-Formulary Medication (Methyl Salicylate/ Menthol (Analgesic Sedley)) 1 abby PRN QID PRN TP MUSCLE PAIN 02/12/21 12:15 02/12/21 13:14 DC Artificial Tears (Refresh Classic) 2 drop PRN QID PRN OU DRY EYE 02/12/21 13:15 03/14/21 17:56 DC Linagliptin (Tradjenta) 5 mg DAILY16 PO 02/12/21 16:00 03/14/21 17:56 DC 03/13/21 17:31 Olanzapine (ZyPREXA ZYDIS) 5 mg PRN Q2HR PRN PO PSYCHOSIS 02/12/21 12:30 03/14/21 17:56 DC 03/09/21 19:49 Divalproex Sodium (Depakote Sprinkles) 375 mg 1300 PO 02/14/21 13:00 02/17/21 18:55 DC 02/17/21 12:24 Divalproex Sodium (Depakote Sprinkles) 500 mg 0900,1700 PO 02/13/21 17:00 02/17/21 18:55 DC 02/17/21 17:00 Insulin Human Lispro (HumaLOG) 0-9 UNITS TIDWMEALS SQ 02/14/21 08:00 03/14/21 17:56 DC 03/14/21 12:00 Quetiapine Fumarate (SEROquel) 50 mg HS PO 02/15/21 21:00 02/21/21 20:28 DC 02/20/21 20:03 Quetiapine Fumarate (SEROquel) 25 mg DAILY08 PO 02/15/21 08:00 02/19/21 17:48 DC 02/19/21 08:47 Divalproex Sodium (Depakote Sprinkles) 500 mg TID PO 02/18/21 08:00 03/14/21 17:56 DC 03/14/21 13:31 Quetiapine Fumarate (SEROquel) 25 mg 0900,1300 PO 02/20/21 09:00 02/28/21 11:54 DC 02/28/21 08:16 Trazodone HCl (Desyrel) 100 mg PRN QHS PRN PO INSOMNIA, MAY REPEAT X1 02/20/21 18:00 03/14/21 17:56 DC 03/09/21 19:49 Quetiapine Fumarate (SEROquel) 75 mg HS PO 02/21/21 21:00 03/14/21 17:56 DC 03/13/21 21:42 Mirtazapine (Remeron) 7.5 mg QHS PO 02/26/21 21:00 03/14/21 17:56 DC 03/13/21 21:41 Quetiapine Fumarate (SEROquel) 37.5 mg 0900,1300 PO 02/28/21 13:00 03/14/21 17:56 DC 03/14/21 13:31 Nystatin (Nystop) 1 abby BID TP 03/01/21 23:00 03/14/21 17:56 DC 03/14/21 09:00 Vitamin A/Vitamin D (Vitamin A & D Ointment) 1 abby PRN Q1HR PRN TP SKIN PROTECTION 03/12/21 18:15 03/14/21 17:56 DC I have reviewed the current psychotropics carefully including drug interactions. Risk benefit ratio favors no change other than as noted in my dictated progress note. Diagnosis: Problems: (1) Dementia in Alzheimer's disease with depression (2) Dementia in Alzheimer's disease with delusions (3) Major neurocognitive disorder (4) Dementia in Alzheimer's disease with early onset with behavioral disturbance (5) Anxiety disorder (6) Dementia, vascular, with delusions (7) Dementia, vascular, with depression (8) Impulse control disorder DEAN GARDNER MD March 20, 2021 08:01
== END 2021-03-14 16:50 | DRG 57 ==
LOC: ER 01:00 → GEROPSY 08:00
PROVIDERS: ADMIT Psychiatry & Neurology Psychiatry; ATTEND Psychiatry & Neurology Psychiatry
DX: G30.9 Alzheimer's disease, unspecified (principal); F01.51 Vascular dementia, unspecified severity, with behavioral disturbance; I11.0 Hypertensive heart disease with heart failure; I69.354 Hemiplegia and hemiparesis following cerebral infarction affecting left non-dominant side; F02.81 Dementia in other diseases classified elsewhere, unspecified severity, with behavioral disturbance; E11.9 Type 2 diabetes mellitus without complications; E78.00 Pure hypercholesterolemia, unspecified; E78.5 Hyperlipidemia, unspecified; F32.9 Major depressive disorder, single episode, unspecified; F41.9 Anxiety disorder, unspecified; F63.9 Impulse disorder, unspecified; I48.0 Paroxysmal atrial fibrillation; I50.9 Heart failure, unspecified; I69.311 Memory deficit following cerebral infarction; M19.90 Unspecified osteoarthritis, unspecified site; R13.10 Dysphagia, unspecified; Z79.899 Other long term (current) drug therapy; Z90.49 Acquired absence of other specified parts of digestive tract
CPT/HCPCS: 36415; 71045; 80053; 80061; 80164; 81001; 82306; 82607; 82947; 83036; 83540; 83550; 83735; 84436; 84443; 84480; 84484; 85025; 85379; 86592; 93005; 96374; 96376; J0360; J1815; J2250; 97542; 99285-25

== ENCOUNTER 2021-06-10 21:05 | Emergency (ER) | payer MEDICARE, OTHER ==
[~2021-06-10] VITALS: Ht 190.5 cm; Wt 277.9 kg
[~2021-06-10 21:05] MED LIST changes: +DILT60TA PO; +GALA4SOL PO; +LOPE2TAB27 PO; +MAG-124 PO; +MIRT-37 PO; +NYST15PO9 TP; +TRAZ-125 PO; +VITS42.55 TP
[2021-06-10 22:24] LABS: BASO % 1 % (0-3); EOS # 0.4 x10^3/uL (0.0-0.7); EOS % 5 % (0-3); HEMATOCRIT 36.1 % (39.0-53.0); HEMOGLOBIN 11.9 g/dL (13.0-17.5); LYMPH # 2.6 x10^3/uL (1.0-4.8); LYMPH % 30 % (24-48); MEAN CORPUSCULAR HEMOGLOBIN 30 pg (25-35); MEAN CORPUSCULAR HGB CONC 33 g/dL (31-37); MEAN CORPUSCULAR VOLUME 92 fL (79-100); MONO # 0.9 x10^3/uL (0.0-1.1); MONO % 10 % (0-9); NEUT # 4.8 x10^3uL (1.8-7.7); NEUT % 55 % (31-73); PLATELET COUNT 144 x10^3/uL (140-400); RED BLOOD COUNT 3.93 x10^6/uL (4.30-5.70); RED CELL DISTRIBUTION WIDTH 13.4 % (11.5-14.5); WHITE BLOOD COUNT 8.8 x10^3/uL (4.0-11.0)
[2021-06-10 22:32] LABS: CALCIUM 8.3 mg/dL (8.5-10.1); CREATININE 1.4 mg/dL (0.7-1.3); GFR 60.4; POTASSIUM 4.2 mmol/L (3.5-5.1)
--- NOTE | 2021-06-10 22:35 | RAD ---
Exam: CT head INDICATION: Mental status change TECHNIQUE: Sequential axial images through the head were obtained without the administration of IV co ntrast. Exposure: One or more of the following in the visualized dose reduction techniques were utilized for this examination: 1. Automated exposure control 2. Adjustment of the MA and/or KV according to patient size 3. Use of iterative of reconstructive technique Comparisons: 10/30/2020 FINDINGS: No focal parenchymal lesion or hemorrhage is identified. There is no midline shift or sulcal effaceme nt. Patchy hypodensity in the periventricular white matter. No acute vascular territory infarction is freddie ntified. Rosales-white distinction is preserved. The ventricular system is within normal limits without compression hydrocephalus. The basal cisterns are well maintained. The visualized portions of the paranasal sinuses and mastoid air cells are well-pneumatized. No acute fractures. IMPRESSION: Extensive small vessel schema change, technically age indeterminate without recent prior imaging. Electronically signed by: Kate Aparicio MD (06/10/2021 10:32 PM) [facility]
[2021-06-10 22:38] LABS: ALBUMIN 2.9 g/dL (3.4-5.0); ALBUMIN/GLOBULIN RATIO 0.8 (1.0-1.7); TOTAL BILIRUBIN 0.2 mg/dL (0.2-1.0); TOTAL PROTEIN 6.5 g/dL (6.4-8.2)
--- NOTE | 2021-06-11 03:59 | PHYS DOC ---
Past History Past Medical History: Anxiety, CHF, Constipation, CVA, Depression, High Cholesterol, Hypertension, UTI Past Surgical History: No Surgical History Alcohol Use: None Drug Use: None Adult General Chief Complaint Chief Complaint: LOWER EXT PAIN HPI HPI Patient is a 70-year-old male who presents here brought by ambulance from [facility] with complaint of left foot pain. However skilled nursing had indicated that patient had slight confusion at the skilled nursing and they sent him here for evaluation. Patient initially thought he was seen here yesterday for left foot pain but then later recognized that he in fact had not been seizure yesterday. He provided a straightforward history that he has had significant stroke with significant left-sided weakness of the arm and leg and inability to ambulate. He has been getting rehabilitation. And he has been complaining just the pain at the bottom of his foot. He otherwise is clear in providing history, and has no complaint of other pain, chest pain, fever, cough, nausea vomiting or diarrhea. Review of Systems Review of Systems Constitutional: Denies fever or chills [] Eyes: Denies change in visual acuity, redness, or eye pain [] HENT: Denies nasal congestion or sore throat [] Respiratory: Denies cough or shortness of breath [] Cardiovascular: No additional information not addressed in HPI [] GI: Denies abdominal pain, nausea, vomiting, bloody stools or diarrhea [] : Denies dysuria or hematuria [] Musculoskeletal: Denies back pain or joint pain [] Integument: Denies rash or skin lesions [] Neurologic: Denies headache, focal weakness to left as stated above. Endocrine: Denies polyuria or polydipsia [] All other systems were reviewed and found to be within normal limits, except as documented in this note. Family History Family History Unremarkable Allergies Allergies Allergies Coded Allergies Type Severity Reaction Last Updated Verified No Known Drug Allergies 02/12/21 No Physical Exam Physical Exam Constitutional: Alert and oriented individual without any distress. HENT: Normocephalic, atraumatic, bilateral external ears normal, oropharynx moist, no oral exudates, nose normal. [] Eyes: PERRLA, EOMI, conjunctiva normal, no discharge. [] Neck: Normal range of motion, no tenderness, supple, no stridor. [] Cardiovascular:Heart rate regular rhythm, no murmur [] Lungs & Thorax: Bilateral breath sounds clear to auscultation [] Abdomen: Bowel sounds normal, soft, no tenderness, no masses, no pulsatile masses. [] Skin: Warm, dry, no erythema, no rash. [] Back: No tenderness, no CVA tenderness. [] Extremities: His right upper and lower extremities have normal range of motion and strength. His left upper and lower extremities are quite flaccid but no acute joint deformity, swelling or tenderness. Left foot also does not have any significant swelling or palpable tenderness. Lower extremity pulses are normal and symmetrical. Neurologic: Alert and oriented X 3, significant left sided persistent previous weakness. Right side has no motor or sensory deficit Psychologic: Affect normal, judgement normal, mood normal. [] Current Patient Data Vital Signs Vital Signs Date Time Temp Pulse Resp B/P (MAP) Pulse Ox O2 Delivery O2 Flow Rate FiO2 06/11/21 00:46 98.7 64 17 152/78 (102) 95 Room Air Lab Results Laboratory Tests Test 06/10/21 21:55 White Blood Count 8.8 x10^3/uL (4.0-11.0) Red Blood Count 3.93 x10^6/uL (4.30-5.70) L Hemoglobin 11.9 g/dL (13.0-17.5) L Hematocrit 36.1 % (39.0-53.0) L Mean Corpuscular Volume 92 fL (79-100) Mean Corpuscular Hemoglobin 30 pg (25-35) Mean Corpuscular Hemoglobin Concent 33 g/dL (31-37) Red Cell Distribution Width 13.4 % (11.5-14.5) Platelet Count 144 x10^3/uL (140-400) Neutrophils (%) (Auto) 55 % (31-73) Lymphocytes (%) (Auto) 30 % (24-48) Monocytes (%) (Auto) 10 % (0-9) H Eosinophils (%) (Auto) 5 % (0-3) H Basophils (%) (Auto) 1 % (0-3) Neutrophils # (Auto) 4.8 x10^3uL (1.8-7.7) Lymphocytes # (Auto) 2.6 x10^3/uL (1.0-4.8) Monocytes # (Auto) 0.9 x10^3/uL (0.0-1.1) Eosinophils # (Auto) 0.4 x10^3/uL (0.0-0.7) Basophils # (Auto) 0.0 x10^3/uL (0.0-0.2) Sodium Level 143 mmol/L (136-145) Potassium Level 4.2 mmol/L (3.5-5.1) Chloride Level 105 mmol/L (98-107) Carbon Dioxide Level 28 mmol/L (21-32) Anion Gap 10 (6-14) Blood Urea Nitrogen 17 mg/dL (8-26) Creatinine 1.4 mg/dL (0.7-1.3) H Estimated GFR (Cockcroft-Gault) 60.4 BUN/Creatinine Ratio 12 (6-20) Glucose Level 214 mg/dL (70-99) H Calcium Level 8.3 mg/dL (8.5-10.1) L Total Bilirubin 0.2 mg/dL (0.2-1.0) Aspartate Amino Transferase (AST) 21 U/L (15-37) Alanine Aminotransferase (ALT) 20 U/L (16-63) Alkaline Phosphatase 69 U/L (46-116) Troponin I Quantitative < 0.017 ng/mL (0-0.055) Total Protein 6.5 g/dL (6.4-8.2) Albumin 2.9 g/dL (3.4-5.0) L Albumin/Globulin Ratio 0.8 (1.0-1.7) L EKG EKG EKG shows heart rate of 60 bpm of normal sinus rhythm there is nonspecific anterolateral EKG abnormalities likely representing old injury. [] Radiology/Procedures Radiology/Procedures [] Impressions: CT of the head as interpreted by radiology showed extensive small vessel ischemic changes of age indeterminate without recent prior imaging. Heart Score C/O Chest Pain: No Risk Factors: Risk Factors: DM, Current or recent (<one month) smoker, HTN, HLP, family history of CAD, obesity. Risk Scores: Risk Factors: DM, Current or recent (<one month) smoker, HTN, HLP, family history of CAD, obesity. Course & Med Decision Making Course & Med Decision Making Patient was brought by ambulance for possible confusion however on arrival his mentation is clear. In my several conversation with the patient continue to remain normal mentation. Because of the complaint he did have a CT scan of the head which did not reveal any acute abnormality but previous stroke is present. Patient had unremarkable laboratory studies including troponin. He remained hemodynamically stable on monitor. His pulse oxygenation was normal. I reevaluated him at 3:55 AM several hours after his arrival and he continues to be stable and will be discharged back to skilled nursing for continued rehabilitation. Dragon Disclaimer Dragon Disclaimer This electronic medical record was generated, in whole or in part, using a voice recognition dictation system. Departure Departure: Impression: Primary Impression: Altered mental state Disposition: 03 LONGTERM FACILITY Condition: STABLE Referrals: CELI GUILLERMO MD (PCP) You should see your physician within the next 3 to 5 days for further follow-up. Patient Instructions: Altered Mental Status Additional Instructions: You were brought here for altered mental status. However in the emergency department your mentation was clear and your work-up in the ER did not reveal any significant new abnormalities. Please continue your rehabilitation as previously instructed. Problem Qualifiers Primary Impression: Altered mental state Altered mental status type: disorientation Qualified Codes: R41.0 - Disorientation, unspecified BREE GALLEGOS MD Jun 11, 2021 03:59
[2021-06-11 04:04] VITALS: BP 133/72
--- NOTE | 2021-06-11 06:51 | EKG ---
[address] [address] Test Date: 2021-06-10 Test Time: 22:34:38 Pat Name: HUY TEAGUE Department: Room: Gender: M [employer]: : 1950 Requested By: BREE GALLEGOS Order Number: [id number] Reading MD: Measurements Intervals [place] Rate: 60 P: OK: QRS: 60 QRSD: 112 T: 214 QT: 470 QTc: 470 Interpretive Statements IRREGULAR RHYTHM, NO P-WAVE FOUND ST & T ABNORMALITY, CONSIDER ANTEROLATERAL ISCHEMIA OR LEFT VENTRICULAR STRAIN INFEROLATERAL ISCHEMIA OR LEFT VENTRICULAR STRAIN T ABNORMALITY IN ANTERIOR LEADS ABNORMAL ECG RI6.02 No previous ECG available for comparison
== END 2021-06-11 04:20 ==
LOC: ER 21:05
DX: R41.82 Altered mental status, unspecified (principal); R53.1 Weakness; M79.672 Pain in left foot; F41.9 Anxiety disorder, unspecified; I11.0 Hypertensive heart disease with heart failure; I50.9 Heart failure, unspecified; E78.00 Pure hypercholesterolemia, unspecified; Z87.440 Personal history of urinary (tract) infections; Z86.73 Personal history of transient ischemic attack (TIA), and cerebral infarction without residual deficits
CPT/HCPCS: 36415; 70450; 80053; 84484; 85025; 93005; 99285